=== PATIENT | female | born 1945 | race American Indian/Alaskan Native ===

== ENCOUNTER 2016-06-30 10:12 | Inpatient (IN) | payer MEDICARE ==
[2016-06-30] MEDS ORDERED: CATAPRES PO ONE (11:00)
--- NOTE | 2016-06-30 11:13 | Emergency Department Report ---
HPI - General Chief Complaint: High BP Time Seen by Provider: 06/30/16 11:00 - HPI HPI: Room 6 The patient is a 70-year-old female presenting with a chief complaint of bipolar disorder hypertension. The patient has a history of bipolar disorder hypertension and stay she's been off all of her medications for the past 4-5 days. The patient states this is because her daughter who handles her medication is incarcerated. The patient states the daughter called EMS today because the daughter thought the patient's bipolar disorder was "acting up." The patient states the daughter believes she has been "walking around at night. " The patient denies suicidal or homicidal ideation. Patient denies visual or auditory hallucinations. Location: Mental state Duration: [see above] Quality: Altered Severity: Moderate Modifying factors: [see above] Context: [see above] Mode of transportation: EMS ED Past Medical Hx - Past Medical History Previous Medical History?: Yes Hx Hypertension: Yes (2010, EKG 06/12/13 NSR 67) Hx Diabetes: Yes Hx Renal Disease: Yes (CKD STAGE UNKNOWN) Hx Arthritis: Yes (hands) Hx Psychiatric Treatment: Yes Hx Dementia: Yes Additional medical history: bipolar, sciatica - Surgical History Past Surgical History?: Yes Hx Breast Surgery: Yes (left mastectomy) Additional Surgical History: hysterectomy. knee replacement - Family History Family history: no significant - Social History Smoking Status: Never Smoker Substance Use Type: None - Medications Home Medications: Home Medications Medication Instructions Recorded Confirmed Last Taken Type Insulin Aspart Prot/Aspart 45 units SUB-Q QHS 05/12/13 05/12/13 06/14/13 21:00 History [NovoLOG Mix 70/30 VIAL] Fesoterodine Fumarate [Toviaz] 4 mg PO HS 06/12/13 06/12/13 06/15/13 20:00 History Folic Acid 1 mg PO QDAY 06/12/13 06/12/13 06/15/13 18:00 History Olanzapine 10 mg PO HS 06/12/13 06/12/13 06/15/13 20:00 History Pantoprazole [Protonix TAB] 40 mg PO QDAY 06/12/13 06/12/13 06/15/13 08:00 History Vit B Cmplx 3/FA/Vit C/Biotin 1 each PO 06/12/13 06/12/13 06/15/13 18:00 History [Leandra-Cricket Rx Tablet] traMADol [Ultram 50 MG tab] 50 mg PO Q4HR PRN #20 tablet 07/26/13 Unknown Rx Acetaminophen [Acetaminophen TAB] 650 mg PO Q4H PRN #30 tablet 02/08/15 Unknown Rx Famotidine [Pepcid] 10 mg PO DAILY tablet 02/08/15 Unknown Rx HYDROcodone/APAP 5-325 [Bronson 1 each PO Q6H PRN #30 tablet 02/08/15 Unknown Rx 5-325 mg TAB] Insulin Regular, Human [HumuLIN R] 0 units SUB-Q ACHS units 02/08/15 Unknown Rx Labetalol [Normodyne TAB] 200 mg PO BID tablet 02/08/15 Unknown Rx Levothyroxine [Synthroid] 112 mcg PO DAILY@0600 tablet 02/08/15 Unknown Rx Memantine (Nf) [Namenda (Nf)] 10 mg PO BID tablet 02/08/15 Unknown Rx NIFEdipine XL [Procardia Xl] 30 mg PO Q12HR #30 tablet 06/30/16 Unknown Rx hydrALAZINE [Apresoline TAB] 50 mg PO Q8HR #30 tablet 06/30/16 Unknown Rx ED Review of Systems ROS: Stated complaint: HIGH BLOOD PRESSURE Other details as noted in HPI Comment: All other systems reviewed and negative Constitutional: denies: chills, fever Eyes: denies: eye pain, eye discharge, vision change ENT: denies: ear pain, throat pain Respiratory: denies: cough, shortness of breath, wheezing Cardiovascular: denies: chest pain, palpitations Endocrine: no symptoms reported Gastrointestinal: denies: abdominal pain, nausea, diarrhea Genitourinary: denies: urgency, dysuria, discharge Musculoskeletal: denies: back pain, joint swelling, arthralgia Skin: denies: rash, lesions Neurological: denies: headache, weakness, paresthesias Psychiatric: denies: anxiety, depression, auditory hallucinations, visual hallucinations, homicidal thoughts, suicidal thoughts Hematological/Lymphatic: denies: easy bleeding, easy bruising Physical Exam - Physical Exam Vital Signs: Vital Signs 06/30/16 10:52 Temperature 98.6 F Pulse Rate 62 Respiratory 20 Rate Blood Pressure 207/185 [Right] O2 Sat by Pulse 100 Oximetry Physical Exam: GENERAL: The patient is well-developed well-nourished female lying on stretcher not appearing to be in acute distress. [] HEENT: Normocephalic. Atraumatic. Extraocular motions are intact. Patient has moist mucous membranes. NECK: Supple. No meningitic signs are noted. Trachea midline CHEST/LUNGS: Clear to auscultation. There is no respiratory distress noted. HEART/CARDIOVASCULAR: Regular. There is no tachycardia. There is no gallop rub or murmur. ABDOMEN: Abdomen is soft, nontender. Patient has normal bowel sounds. There is no abdominal distention. SKIN: There is no rash. There is no edema. There is no diaphoresis. NEURO: The patient is awake, alert, and oriented 4. The patient is cooperative. The patient has no focal neurologic deficits. The patient has normal speech. Cranial nerves II through XII grossly intact, no drift MUSCULOSKELETAL: There is no evidence of acute injury. ED Course Vital Signs 06/30/16 10:52 Temperature 98.6 F Pulse Rate 62 Respiratory 20 Rate Blood Pressure 207/185 [Right] O2 Sat by Pulse 100 Oximetry ED Medical Decision Making - Lab Data Result diagrams: 06/30/16 12:01 06/30/16 12:01 Laboratory Tests 06/30/16 06/30/16 06/30/16 11:34 11:34 12:01 WBC 4.2 L RBC 3.15 L Hgb 8.4 L Hct 26.5 L MCV 84 MCH 27 L MCHC 32 RDW 16.4 H Plt Count 258 Lymph % (Auto) 31.3 [place] % (Auto) 11.2 H Eos % (Auto) 3.6 Baso % (Auto) 0.6 Lymph # 1.3 [place] # 0.5 Eos # 0.1 Baso # 0.0 Seg Neutrophils % 53.3 Seg Neutrophils # 2.2 Sodium Potassium Chloride Carbon Dioxide Anion Gap BUN Creatinine Estimated GFR BUN/Creatinine Ratio Glucose Calcium Urine Color Yellow Urine Turbidity Slightly-cloudy Urine pH 6.0 Ur Specific [place] 1.006 Urine Protein 100 mg/dl Urine Glucose (UA) Neg Urine Ketones Neg Urine Blood Neg Urine Nitrite Neg Urine Bilirubin Neg Urine Urobilinogen < 2.0 Ur Leukocyte Esterase Lg Urine WBC (Auto) 76.0 H Urine RBC (Auto) 2.0 U Epithel Cells (Auto) 1.0 Urine Bacteria (Auto) 1+ Urine Opiates Screen Presumptive negative Urine Methadone Screen Presumptive negative Acetaminophen Ur Barbiturates Screen Presumptive negative Ur Phencyclidine Scrn Presumptive negative Ur Amphetamines Screen Presumptive negative U Benzodiazepines Scrn Presumptive negative Urine Cocaine Screen Presumptive negative U Marijuana (THC) Screen Presumptive negative Drugs of Abuse Note Disclamer Plasma/Serum Alcohol 06/30/16 06/30/16 06/30/16 12:01 12:01 12:01 WBC RBC Hgb Hct MCV MCH MCHC RDW Plt Count Lymph % (Auto) [place] % (Auto) Eos % (Auto) Baso % (Auto) Lymph # [place] # Eos # Baso # Seg Neutrophils % Seg Neutrophils # Sodium 144 Potassium 4.2 Chloride 107.0 Carbon Dioxide 19 L Anion Gap 22 BUN 28 H Creatinine 2.4 H Estimated GFR 24 BUN/Creatinine Ratio 11.66 Glucose 87 Calcium 8.1 L Urine Color Urine Turbidity Urine pH Ur Specific [place] Urine Protein Urine Glucose (UA) Urine Ketones Urine Blood Urine Nitrite Urine Bilirubin Urine Urobilinogen Ur Leukocyte Esterase Urine WBC (Auto) Urine RBC (Auto) U Epithel Cells (Auto) Urine Bacteria (Auto) Urine Opiates Screen Urine Methadone Screen Acetaminophen < 15.0 Ur Barbiturates Screen Ur Phencyclidine Scrn Ur Amphetamines Screen U Benzodiazepines Scrn Urine Cocaine Screen U Marijuana (THC) Screen Drugs of Abuse Note Plasma/Serum Alcohol < 0.01 - Medical Decision Making Review the patient's medical records reveals chronic anemia and renal insufficiency. 01/31/2015 hemoglobin 7.6, hematocrit 23.9. 02/08/2015 creatinine 2.3 - Differential Diagnosis bipolar disorder, electrolyte imbalance, hypertension Critical care attestation.: If time is entered above; I have spent that time in minutes in the direct care of this critically ill patient, excluding procedure time. ED Disposition Clinical Impression: Chronic renal insufficiency, Chronic anemia, Hypertension Disposition: DISCHARGED TO HOME OR SELFCARE Is pt being admited?: No Does the pt Need Aspirin: No Condition: Stable Instructions: Hypertension (ED) Additional Instructions: Return to the emergency department immediately should you develop worsening symptoms, fever, inability to tolerate food or liquid or any other concerns. Prescriptions: NIFEdipine XL [Procardia Xl] 30 mg PO Q12HR #30 tablet hydrALAZINE [Apresoline TAB] 50 mg PO Q8HR #30 tablet Referrals: [facility] [Outside] - 3-5 Days PRIMARY CARE, [Primary Care Provider] - POLY RUSSELL, MD [Staff Physician] - LESLE[place] (Dr. Archer is a recruiter manager. Please follow up with him for further evaluation of your kidney function) Time of Disposition: 18:52
[2016-06-30 11:38] LABS: Urine Drugs of Abuse Note Disclamer
[2016-06-30 11:48] LABS: Bacteria,Urine 1+ /HPF (Negative); Bilirubin,Urine NEG (Negative); Blood,Urine NEG (Negative); Ketones,Urine NEG (Negative); Leukocyte Esterase,Urine LG (Negative); Nitrite,Urine NEG (Negative); Urobilinogen,Urine < 2.0 mg/dL (<2.0)
[2016-06-30 12:39] LABS: Basophils % (Auto) 0.6 % (0.0-1.8); Eosinophils % (Auto) 3.6 % (0.0-4.3); Hematocrit 26.5 % (30.3-42.9); Hemoglobin 8.4 gm/dl (10.1-14.3); Mean Corpuscular HGB Conc 32 % (30-34); Mean Corpuscular Hemoglobin 27 pg (28-32); Mean Corpuscular Volume 84 fl (79-97); Platelet Count 258 K/mm3 (140-440); Red Blood Count 3.15 M/mm3 (3.65-5.03); Red Cell Distribution Width 16.4 % (13.2-15.2); White Blood Count 4.2 K/mm3 (4.5-11.0)
[2016-06-30 12:52] LABS: BUN/Creatinine Ratio 11.66; Calcium 8.1 mg/dL (8.4-10.2); Potassium 4.2 mmol/L (3.6-5.0)
[2016-06-30] MEDS ORDERED: APRESOLINE IV ONE ×2 (16:58→18:16)
[2016-07-01] MEDS ORDERED: PROCARDIA XL PO ONE (06:46)
[2016-07-01] MEDS ORDERED: APRESOLINE PO ONE (06:46)
[2016-07-01] MEDS ORDERED: TYLENOL PO ONE (23:34)
[2016-07-02] MEDS ORDERED: BACTRIM DS ONE (07:38)
[2016-07-02] MEDS: ULTRAM PO PRN (07:54)
[2016-07-02] MEDS ORDERED: APRESOLINE PO ONE (08:41)
[2016-07-02] MEDS ORDERED: PROCARDIA XL PO ONE (08:41)
[2016-07-02] MEDS: BACTRIM DS PO SCH ×2 (09:58→22:00)
--- NOTE | 2016-07-03 00:51 | Admit Criteria Form ---
Admission Criteria Documentation: HYPERTENSION Clinical Indications for Admission to Inpatient Care ( Place "X" for any and all applicable criteria): Admission is indicated for ANY ONE of the following(1)(2)(3)(4): [ ]I. Hypertensive emergency, with evidence of acute and progressing target organ disease as indicated by ANY ONE of the following: [ ]a) Hypertensive encephalopathy (eg, confusion, altered mental status) [ ]b) Cerebral infarction [ ]c) Intracranial hemorrhage [ ]d) Myocardial ischemia or infarction [ ]e) Pulmonary edema [ ]f) Aortic dissection [ ]g) Seizure [ ]h) Acute renal insufficiency [ ]i) Papilledema [ ]j) Microangiopathic hemolytic anemia [ ]II. Adrenergic crisis (eg, severe hypertension due to pheochromocytoma crisis, cocaine or amphetamine intoxication, or clonidine withdrawal) [ X]III. Severe hypertension (SBP greater than 180 mmHg or DBP greater than 110 mmHg or greater than the 95th percentile for age, gender, and height in pediatric patients) that cannot be controlled (eg, to SBP less than 160 mmHg and DBP less than 100 mmHg in adults) by treatment with oral medication in emergency department or observation care Extended stay beyond goal length of stay may be needed for(11)(12)(13): [ ]a) Persistent hypertensive encephalopathy [ ]b) Continuation of pulmonary edema [ ]c) Recurring or persistent severe hypertension [ ]d) Target organ damage (eg, angina, stroke, aortic dissection) [ ]e) Associated renal insufficiency The original [employer] content created by [employer] has been revised. The portions of the content which have been revised are identified through the use of italic text or in bold, and [facility] has neither reviewed nor approved the modified material. All other unmodified content is copyright [employer]. Please see references footnoted in the original [employer] edition 2016 Admission Criteria Met: Yes
--- NOTE | 2016-07-03 11:55 | Emergency Department Report ---
Blank Doc - Documentation Documentation: I was approached by the social sciences professor regarding a discharge issue with this patient. The patient allegedly used to live with some family who is at [facility] but they are unable to care for her and unable to take her back as they themselves are being evicted from where they're currently residing. The patient 's other family is in [facility] and unable to do anything about her situation. The patient used to live at [facility], a local [facility]. The case management feels that they should be able to get her placed back at [facility] or another ch[facility] after she has been an inpatient admission for 3 days. The patient does have a history of dementia, chronic kidney disease, anemia secondary to the chronic kidney disease. The patient was found to have hypertensive urgency when she was here 3 days ago and a urinary tract infection. The patient will be admitted for further evaluation of this as well as for her social/discharge planning issues and has been accepted for admission by the hospitalist service, Dr sandra.
[2016-07-03] MEDS: BACTRIM DS PO SCH ×2 (12:18→21:20)
--- NOTE | 2016-07-03 14:03 | History and Physical Report ---
History of Present Illness Date of examination: 07/03/16 Chief complaint: patient said she came for High blood pressure History of present illness: 70 y/o AAF with pmhx significant for HTN, bipolar, DM, dementia, CKD brought to ED 3 days ago for complaints of agitation and aggressive towards family members (per family), but she was calm and cooperative (per EMS report). In the ED her blood pressure was high and she was on BP meds and she had UTI and was started on Bactrim. The patient said her daughter was incarcerated and had difficulty of getting her medications while she was at home. She was kept in the ED for the last 3 days. By the time I saw her the patient was pleasant and cooprative and didn't have any complaints. She asked for placement in correction ( [facility] which specifically wanted to be placed). She is going to be admitted to the floor for the management of UTI and placement. Past History Past Medical History: diabetes, hypertension, renal failure, other (Bipolar, dementia) Past Surgical History: Other (left breast surgery) Social history: lives with family, full code. denies: smoking, alcohol abuse, prescription drug abuse, IV drug use Family history: no significant family history, other (Non contributary at this age.) Medications and Allergies Allergies Allergy/AdvReac Type Severity Reaction Status Date / Time No Known Allergies Allergy Unverified 05/12/13 12:21 Home Medications Medication Instructions Recorded Confirmed Last Taken Type Insulin Aspart Prot/Aspart 45 units SUB-Q QHS 05/12/13 07/02/16 06/14/13 21:00 History [NovoLOG Mix 70/30 VIAL] Olanzapine 10 mg PO HS 06/12/13 07/02/16 06/15/13 20:00 History Insulin Regular, Human [HumuLIN R] 0 units SUB-Q ACHS units 02/08/15 07/02/16 Unknown Rx Labetalol [Normodyne TAB] 200 mg PO BID tablet 02/08/15 07/02/16 Unknown Rx NIFEdipine XL [Procardia Xl] 30 mg PO Q12HR #30 tablet 06/30/16 Unknown Rx hydrALAZINE [Apresoline TAB] 50 mg PO Q8HR #30 tablet 06/30/16 Unknown Rx Gabapentin [Neurontin] 100 mg PO BID 07/02/16 07/02/16 Unknown History Levothyroxine [Synthroid] 100 mcg PO DAILY@0600 07/02/16 07/02/16 Unknown History Sulfamethoxazole/Trimethoprim 1 each PO BID #20 tablet 07/02/16 Unknown Rx [Bactrim DS TAB] Active Meds: Active Medications Tramadol HCl (Ultram) 50 mg PO Q4HR PRN PRN Reason: Pain Last Admin: 07/02/16 07:54 Dose: 50 mg Trimethoprim/Sulfamethoxazole (Bactrim Ds) 1 each PO Q12HR RACHEL Last Admin: 07/03/16 12:18 Dose: 1 each Review of Systems Constitutional: no weight loss, no weight gain, no fever, no chills, no sweats, no night sweats Ears, nose, mouth and throat: no ear pain, no ear discharge Cardiovascular: no chest pain, no orthopnea, no palpitations, no rapid/ irregular heart beat Respiratory: no cough, no cough with sputum, no excessive sputum Gastrointestinal: no abdominal pain, no nausea, no vomiting Genitourinary Female: no flank pain, no dysuria, no urinary frequency, no urgency Rectal: no pain, no incontinence Musculoskeletal: no neck stiffness, no neck pain Integumentary: no rash, no pruritis Neurological: no head injury, no transient paralysis Psychiatric: memory loss, no anxiety Endocrine: no cold intolerance, no heat intolerance Hematologic/Lymphatic: no easy bruising, no easy bleeding Allergic/Immunologic: no urticaria, no allergic rhinitis Exam - Constitutional Vitals: Temp Pulse Resp BP Pulse Ox 98 F 78 16 148/78 100 07/02/16 19:30 07/02/16 19:30 07/02/16 19:30 07/02/16 19:30 07/02/16 19:30 General appearance: Present: no acute distress - EENT Eyes: Present: EOM intact ENT: hearing intact, clear oral mucosa, dentition normal - Neck Neck: Present: supple, normal ROM - Respiratory Respiratory effort: normal Respiratory: negative: CTA - Cardiovascular Rhythm: regular Heart Sounds: Present: S1 & S2. Absent: gallop, systolic murmur, diastolic murmur, rub, click - Extremities Extremities: no ischemia, No edema Peripheral Pulses: within normal limits - Abdominal General gastrointestinal: Present: soft, non-tender, non-distended - Integumentary Integumentary: Present: clear, warm, dry - Musculoskeletal Musculoskeletal: strength equal bilaterally - Psychiatric Psychiatric: appropriate mood/affect - Neurologic Neurologic: moves all extremities - Allied Health Allied health notes reviewed: social work, case management Results - Labs CBC & Chem 7: 07/04/16 06:21 07/04/16 06:21 Labs: Laboratory Last Values WBC 4.2 K/mm3 (4.5-11.0) L 06/30/16 12:01 RBC 3.15 M/mm3 (3.65-5.03) L 06/30/16 12:01 Hgb 8.4 gm/dl (10.1-14.3) L 06/30/16 12:01 Hct 26.5 % (30.3-42.9) L 06/30/16 12:01 MCV 84 fl (79-97) 06/30/16 12:01 MCH 27 pg (28-32) L 06/30/16 12:01 MCHC 32 % (30-34) 06/30/16 12:01 RDW 16.4 % (13.2-15.2) H 06/30/16 12:01 Plt Count 258 K/mm3 (140-440) 06/30/16 12:01 Lymph % (Auto) 31.3 % (13.4-35.0) 06/30/16 12:01 [place] % (Auto) 11.2 % (0.0-7.3) H 06/30/16 12:01 Eos % (Auto) 3.6 % (0.0-4.3) 06/30/16 12:01 Baso % (Auto) 0.6 % (0.0-1.8) 06/30/16 12:01 Lymph # 1.3 K/mm3 (1.2-5.4) 06/30/16 12:01 [place] # 0.5 K/mm3 (0.0-0.8) 06/30/16 12:01 Eos # 0.1 K/mm3 (0.0-0.4) 06/30/16 12:01 Baso # 0.0 K/mm3 (0.0-0.1) 06/30/16 12:01 Seg Neutrophils % 53.3 % (40.0-70.0) 06/30/16 12:01 Seg Neutrophils # 2.2 K/mm3 (1.8-7.7) 06/30/16 12:01 Sodium 144 mmol/L (137-145) 06/30/16 12:01 Potassium 4.2 mmol/L (3.6-5.0) 06/30/16 12:01 Chloride 107.0 mmol/L (98-107) 06/30/16 12:01 Carbon Dioxide 19 mmol/L (22-30) L 06/30/16 12:01 Anion Gap 22 mmol/L 06/30/16 12:01 BUN 28 mg/dL (7-17) H 06/30/16 12:01 Creatinine 2.4 mg/dL (0.7-1.2) H 06/30/16 12:01 Estimated GFR 24 ml/min 06/30/16 12:01 BUN/Creatinine Ratio 11.66 % 06/30/16 12:01 Glucose 87 mg/dL (65-100) 06/30/16 12:01 POC Glucose 91 (70-105) 07/02/16 07:43 Calcium 8.1 mg/dL (8.4-10.2) L 06/30/16 12:01 Urine Color Yellow (Yellow) 06/30/16 11:34 Urine Turbidity Slightly-cloudy (Clear) 06/30/16 11:34 Urine pH 6.0 (5.0-7.0) 06/30/16 11:34 Ur Specific Hydes 1.006 (1.003-1.030) 06/30/16 11:34 Urine Protein 100 mg/dl mg/dL (Negative) 06/30/16 11:34 Urine Glucose (UA) Neg mg/dL (Negative) 06/30/16 11:34 Urine Ketones Neg mg/dL (Negative) 06/30/16 11:34 Urine Blood Neg (Negative) 06/30/16 11:34 Urine Nitrite Neg (Negative) 06/30/16 11:34 Urine Bilirubin Neg (Negative) 06/30/16 11:34 Urine Urobilinogen < 2.0 mg/dL (<2.0) 06/30/16 11:34 Ur Leukocyte Esterase Lg (Negative) 06/30/16 11:34 Urine WBC (Auto) 76.0 /HPF (0.0-6.0) H 06/30/16 11:34 Urine RBC (Auto) 2.0 /HPF (0.0-6.0) 06/30/16 11:34 U Epithel Cells (Auto) 1.0 /HPF (0-13.0) 06/30/16 11:34 Urine Bacteria (Auto) 1+ /HPF (Negative) 06/30/16 11:34 Urine Opiates Screen Presumptive negative 06/30/16 11:34 Urine Methadone Screen Presumptive negative 06/30/16 11:34 Acetaminophen < 15.0 ug/mL (10.0-30.0) 06/30/16 12:01 Ur Barbiturates Screen Presumptive negative 06/30/16 11:34 Ur Phencyclidine Scrn Presumptive negative 06/30/16 11:34 Ur Amphetamines Screen Presumptive negative 06/30/16 11:34 U Benzodiazepines Scrn Presumptive negative 06/30/16 11:34 Urine Cocaine Screen Presumptive negative 06/30/16 11:34 U Marijuana (THC) Screen Presumptive negative 06/30/16 11:34 Drugs of Abuse Note Disclamer 06/30/16 11:34 Plasma/Serum Alcohol < 0.01 gm% (0-0.07) 06/30/16 12:01 Assessment and Plan Assessment and plan: UTI HTN Bipolar Disorder Dementia Need Placement - change bactrim to rocephin bacause of CKD - Restart all her home medications - Consult social media intern/ ed case manager for placement DVT prophylaxis: - heparin
[2016-07-03 14:48] LABS: Basophils % (Auto) 0.4 % (0.0-1.8); Eosinophils % (Auto) 4.3 % (0.0-4.3); Hematocrit 26.8 % (30.3-42.9); Hemoglobin 8.5 gm/dl (10.1-14.3); Mean Corpuscular HGB Conc 32 % (30-34); Mean Corpuscular Hemoglobin 27 pg (28-32); Mean Corpuscular Volume 85 fl (79-97); Platelet Count 254 K/mm3 (140-440); Red Blood Count 3.16 M/mm3 (3.65-5.03); Red Cell Distribution Width 16.5 % (13.2-15.2); White Blood Count 4.6 K/mm3 (4.5-11.0)
[2016-07-03 15:05] LABS: BUN/Creatinine Ratio 10.38; Chloride 107.6 mmol/L (98-107); Potassium 4.3 mmol/L (3.6-5.0)
[2016-07-03] MEDS: ULTRAM PO PRN (15:45)
[2016-07-03] MEDS: NORMODYNE PO SCH (21:20)
[2016-07-03] MEDS: NEURONTIN PO SCH (21:20)
[2016-07-03] MEDS: HEPARIN SUB-Q SCH (21:59)
[2016-07-03] MEDS ORDERED: INSULIN ASPART PROTAMINE SUB-Q SCH (22:00)
[2016-07-03] MEDS ORDERED: INSULIN ASPART SUB-Q SCH (22:00)
[2016-07-04] MEDS: SYNTHROID PO SCH (05:18)
[2016-07-04] MEDS: HEPARIN SUB-Q SCH (05:36)
[2016-07-04] MEDS ORDERED: SYNTHROID PO SCH (06:00)
[2016-07-04 06:44] LABS: Basophils % (Auto) 0.8 % (0.0-1.8); Eosinophils % (Auto) 3.6 % (0.0-4.3); Hematocrit 25.6 % (30.3-42.9); Mean Corpuscular HGB Conc 31 % (30-34); Mean Corpuscular Hemoglobin 26 pg (28-32); Mean Corpuscular Volume 84 fl (79-97); Platelet Count 226 K/mm3 (140-440); Red Blood Count 3.04 M/mm3 (3.65-5.03); Red Cell Distribution Width 16.2 % (13.2-15.2); White Blood Count 3.9 K/mm3 (4.5-11.0)
[2016-07-04 07:06] LABS: Calcium 7.8 mg/dL (8.4-10.2); Chloride 107.4 mmol/L (98-107); Potassium 4.4 mmol/L (3.6-5.0)
[2016-07-04] MEDS: NEURONTIN PO SCH ×2 (09:49→23:03)
[2016-07-04] MEDS: NORMODYNE PO SCH ×2 (09:49→23:04)
[2016-07-04] MEDS: NOVOLOG SUB-Q SCH ×3 (11:30→22:49)
--- NOTE | 2016-07-04 16:38 | Progress Note ---
Assessment and Plan Assessment and plan: Patient is a 70-year-old woman with a history of dementia, CKD 4, anemia of chronic disease, hypothyroidism, hypertension, type 2 diabetes mellitus, bipolar disorder and arthritis who presented on 06/30/2016 with mental health concerns per family. Patient did not go home. She remained in the ER until 11/2015, until it was decided that she needed placement. She needs 3 night inpatient hospital stay. 1. Urinary tract infection with acute encephalopathy, POA started on Bactrim by ED physician Dr. Iraheta. Urine culture was uncollected, Stop the Bactrim because of renal dysfunction, started iv rocephin 2. CKD stage IV: repeat bmp am 3. Hypothyroidism: check tsh 4. Hypertension, chronic and worsening: Adjust antihypertensive, Continue to monitor 5. DVT prophylaxis: SCDs, stop heparin due to the anemia 6. Acute on chronic anemia chronic disease: Monitor closely, CBC a.m. Full code Disposition: Continue inpatient care, for placement History Interval history: Patient seen and examined. Follow up on current diagnosis. Overnight uneventful. No cp, sob, n/v or severe headaches. Imaging, old records, testing, labs, nursing notes reviewed. Hospitalist Physical - Physical exam Narrative exam: GEN: WDWN, NAD, AWAKE, ALERT, ORIENTATED 2 CVS: RRR, NORMAL S1S2 LUNGS/CHEST: CTA B, NORMAL CHEST EXPANSION B, GOOD AIR ENTRY B ABD: SOFT NTND, GBS, NO REBOUND OR GUARDING EXT/SKIN: NO SIGNIFICANT EDEMA OR RASH MSK: FROM X 4 EXTREMITIES NEURO: CN 2-12 GROSSLY INTACT, NO NEW FOCAL DEFICITS PSY: CALM - Constitutional Vitals: Temp Pulse Resp BP Pulse Ox 98.3 F 84 20 133/61 100 07/04/16 16:00 07/04/16 16:00 07/04/16 16:00 07/04/16 16:00 07/04/16 16:00 Results - Labs CBC & Chem 7: 07/04/16 06:21 07/04/16 06:21 Labs: Laboratory Last Values WBC 3.9 K/mm3 (4.5-11.0) L 07/04/16 06:21 RBC 3.04 M/mm3 (3.65-5.03) L 07/04/16 06:21 Hgb 8.0 gm/dl (10.1-14.3) L 07/04/16 06:21 Hct 25.6 % (30.3-42.9) L 07/04/16 06:21 MCV 84 fl (79-97) 07/04/16 06:21 MCH 26 pg (28-32) L 07/04/16 06:21 MCHC 31 % (30-34) 07/04/16 06:21 RDW 16.2 % (13.2-15.2) H 07/04/16 06:21 Plt Count 226 K/mm3 (140-440) 07/04/16 06:21 Lymph % (Auto) 24.7 % (13.4-35.0) 07/04/16 06:21 [place] % (Auto) 10.7 % (0.0-7.3) H 07/04/16 06:21 Eos % (Auto) 3.6 % (0.0-4.3) 07/04/16 06:21 Baso % (Auto) 0.8 % (0.0-1.8) 07/04/16 06:21 Lymph # 1.0 K/mm3 (1.2-5.4) L 07/04/16 06:21 [place] # 0.4 K/mm3 (0.0-0.8) 07/04/16 06:21 Eos # 0.1 K/mm3 (0.0-0.4) 07/04/16 06:21 Baso # 0.0 K/mm3 (0.0-0.1) 07/04/16 06:21 Seg Neutrophils % 60.2 % (40.0-70.0) 07/04/16 06:21 Seg Neutrophils # 2.4 K/mm3 (1.8-7.7) 07/04/16 06:21 Sodium 143 mmol/L (137-145) 07/04/16 06:21 Potassium 4.4 mmol/L (3.6-5.0) 07/04/16 06:21 Chloride 107.4 mmol/L (98-107) H 07/04/16 06:21 Carbon Dioxide 21 mmol/L (22-30) L 07/04/16 06:21 Anion Gap 19 mmol/L 07/04/16 06:21 BUN 27 mg/dL (7-17) H 07/04/16 06:21 Creatinine 2.7 mg/dL (0.7-1.2) H 07/04/16 06:21 Estimated GFR 21 ml/min 07/04/16 06:21 BUN/Creatinine Ratio 10.00 % 07/04/16 06:21 Glucose 93 mg/dL (65-100) 07/04/16 06:21 POC Glucose 110 (70-105) H 07/04/16 11:30 Calcium 7.8 mg/dL (8.4-10.2) L 07/04/16 06:21 Urine Color Yellow (Yellow) 06/30/16 11:34 Urine Turbidity Slightly-cloudy (Clear) 06/30/16 11:34 Urine pH 6.0 (5.0-7.0) 06/30/16 11:34 Ur Specific [place] 1.006 (1.003-1.030) 06/30/16 11:34 Urine Protein 100 mg/dl mg/dL (Negative) 06/30/16 11:34 Urine Glucose (UA) Neg mg/dL (Negative) 06/30/16 11:34 Urine Ketones Neg mg/dL (Negative) 06/30/16 11:34 Urine Blood Neg (Negative) 06/30/16 11:34 Urine Nitrite Neg (Negative) 06/30/16 11:34 Urine Bilirubin Neg (Negative) 06/30/16 11:34 Urine Urobilinogen < 2.0 mg/dL (<2.0) 06/30/16 11:34 Ur Leukocyte Esterase Lg (Negative) 06/30/16 11:34 Urine WBC (Auto) 76.0 /HPF (0.0-6.0) H 06/30/16 11:34 Urine RBC (Auto) 2.0 /HPF (0.0-6.0) 06/30/16 11:34 U Epithel Cells (Auto) 1.0 /HPF (0-13.0) 06/30/16 11:34 Urine Bacteria (Auto) 1+ /HPF (Negative) 06/30/16 11:34 Urine Opiates Screen Presumptive negative 06/30/16 11:34 Urine Methadone Screen Presumptive negative 06/30/16 11:34 Acetaminophen < 15.0 ug/mL (10.0-30.0) 06/30/16 12:01 Ur Barbiturates Screen Presumptive negative 06/30/16 11:34 Ur Phencyclidine Scrn Presumptive negative 06/30/16 11:34 Ur Amphetamines Screen Presumptive negative 06/30/16 11:34 U Benzodiazepines Scrn Presumptive negative 06/30/16 11:34 Urine Cocaine Screen Presumptive negative 06/30/16 11:34 U Marijuana (THC) Screen Presumptive negative 06/30/16 11:34 Drugs of Abuse Note Disclamer 06/30/16 11:34 Plasma/Serum Alcohol < 0.01 gm% (0-0.07) 06/30/16 12:01
[2016-07-04] MEDS: ROCEPHIN/NS 1 GM/50 ML 50 ML IV SCH (17:47)
--- NOTE | 2016-07-04 19:19 | Consultation ---
History of Present Illness - Reason for Consult Consult date: 07/04/16 Reason for consult: altered mental status Requesting physician: JORGE L JONES - Chief Complaint Chief complaint: "I want to have a place I can stay forever." "my daughter told the ER people I was out of my mind and was walking around all night, that I didn't know what I am doing. I know what I am doing. I am not crazy." - History of Present Psychiatric Illness Patient was brought to the ER with reports of agitated, confused behaviors. Family informed staff they would not be able to care for her at home anymore as they were being evicted. Medications and Allergies Allergies Allergy/AdvReac Type Severity Reaction Status Date / Time No Known Allergies Allergy Unverified 05/12/13 12:21 Home Medications Medication Instructions Recorded Confirmed Last Taken Type Insulin Aspart Prot/Aspart 45 units SUB-Q QHS 05/12/13 07/02/16 06/14/13 21:00 History [NovoLOG Mix 70/30 VIAL] Olanzapine 10 mg PO HS 06/12/13 07/02/16 06/15/13 20:00 History Insulin Regular, Human [HumuLIN R] 0 units SUB-Q ACHS units 02/08/15 07/02/16 Unknown Rx Labetalol [Normodyne TAB] 200 mg PO BID tablet 02/08/15 07/02/16 Unknown Rx NIFEdipine XL [Procardia Xl] 30 mg PO Q12HR #30 tablet 06/30/16 Unknown Rx hydrALAZINE [Apresoline TAB] 50 mg PO Q8HR #30 tablet 06/30/16 Unknown Rx Gabapentin [Neurontin] 100 mg PO BID 07/02/16 07/02/16 Unknown History Levothyroxine [Synthroid] 100 mcg PO DAILY@0600 07/02/16 07/02/16 Unknown History Sulfamethoxazole/Trimethoprim 1 each PO BID #20 tablet 07/02/16 Unknown Rx [Bactrim DS TAB] Active Meds: Active Medications Dextrose (D50w (25gm)) 50 ml IV PRN PRN PRN Reason: Hypoglycemia Gabapentin (Neurontin) 100 mg PO BID RACHEL Last Admin: 07/04/16 09:49 Dose: 100 mg Ceftriaxone Sodium (Rocephin/Ns 1 Gm/50 Ml) 50 mls @ 100 mls/hr IV Q24HR RACHEL PRN Reason: Protocol Last Admin: 07/04/16 17:47 Dose: 100 mls/hr Influenza Virus Vaccine Quadrival (Fluarix Quad [id number](36 Mos+)) 60 mcg IM .ONCE ONE Stop: 07/05/16 12:01 Insulin Aspart (Novolog) 0 units SUB-Q ACHS RACHEL PRN Reason: Protocol Last Admin: 07/04/16 17:46 Dose: Not Given Insulin Human Isoph/Insulin Regular (Novolin 70/30) 45 unit SUB-Q QHS [facility] Labetalol HCl (Normodyne) 200 mg PO BID [facility] Last Admin: 07/04/16 09:49 Dose: 200 mg Levothyroxine Sodium (Synthroid) 100 mcg PO DAILY@0600 [facility] Last Admin: 07/04/16 05:18 Dose: 100 mcg Olanzapine (Zyprexa) 10 mg PO HS [facility] Last Admin: 07/03/16 21:21 Dose: 10 mg Past psychiatric history - Past Medical History Past Medical History: hypertension, renal failure Past Surgical History: mastectomy - past Psychiatric treatment and history Psych: Bipolar, Psychosis (altered mental status) psychiatric treatment history: Patient's home medications include Zyprexa for psychosis but unsure who prescribed it for Pt. Patient was seen by this [employer] in 2014 while she was at [facility]. She was only on Namenda at that time. - Social History Social history: other (Patient was left at hospital and family refused to pick her up from ER. Family states she cannot return to home.) Mental Status Exam - Vital signs Last Vital Signs Temp 98.3 F 07/04/16 16:00 Pulse 84 07/04/16 16:00 Resp 20 07/04/16 16:00 BP 133/61 07/04/16 16:00 Pulse Ox 100 07/04/16 16:00 - Exam Narrative exam: Patient is awake, alert, cooperative, and easily engages in interview. She is oriented to day, date, month, year, season, location, city, county and state. She is able to recall 3/3 words immediately and after 5 minutes. She is able to identify 2 common objects, read/comprehend written directions, follow 3 step commands, and spell WORLD backwards with 1 error. She is able correctly name the current [place] President and newly elected President. Patient states she wants to find a place she can live forever. She would like to return to [facility] as she had lived there previously and liked it. She states "my daughter told the ER people I was out of my mind and was walking around all night, that I didn't know what I am doing. I know what I am doing. I am not crazy." Patient has a history of dementia but results of MSE are within normal limits (). Patient denies any suicidal or homicidal ideation , denies any auditory or visual hallucinations, denies any sleep or appetite problems. she admits to feeling hopeless when she arrived at ER because she didn't know where she was going to stay when she gets out of the hospital. She is still worried about having a permanent place to stay. Orientation: time, place, person Affect: normal Mood: appropriate, hopeless (felt hopeless when she came in but less hopeless now.) Thought content: roman catholic (strong restorationist theodore), other (no evidence of delusional material) Thought Process: Intact Perceptions: none (denies A/V hallucinations and does not appear to be responding to internal stimuli) Speech: normal rate and pattern Concentration: focused Motor activity: normal Level of consciousness: alert Memory: Intact Sleep Symptoms: None Appetite: increased (no change in appetite) Interaction: pleasant Mini mental status exam(if necessary): 24-30 () Results Result Diagrams: 07/04/16 06:21 07/04/16 06:21 Abnormal lab results 07/04/16 07/04/16 07/04/16 Range/Units 06:21 06:21 11:30 WBC 3.9 L (4.5-11.0) K/mm3 RBC 3.04 L (3.65-5.03) M/mm3 Hgb 8.0 L (10.1-14.3) gm/dl Hct 25.6 L (30.3-42.9) % MCH 26 L (28-32) pg RDW 16.2 H (13.2-15.2) % [place] % (Auto) 10.7 H (0.0-7.3) % Lymph # 1.0 L (1.2-5.4) K/mm3 Chloride 107.4 H (98-107) mmol/L Carbon Dioxide 21 L (22-30) mmol/L BUN 27 H (7-17) mg/dL Creatinine 2.7 H (0.7-1.2) mg/dL POC Glucose 110 H (70-105) Calcium 7.8 L (8.4-10.2) mg/dL 07/04/16 Range/Units 16:33 WBC (4.5-11.0) K/mm3 RBC (3.65-5.03) M/mm3 Hgb (10.1-14.3) gm/dl Hct (30.3-42.9) % MCH (28-32) pg RDW (13.2-15.2) % [place] % (Auto) (0.0-7.3) % Lymph # (1.2-5.4) K/mm3 Chloride (98-107) mmol/L Carbon Dioxide (22-30) mmol/L BUN (7-17) mg/dL Creatinine (0.7-1.2) mg/dL POC Glucose 106 H (70-105) Calcium (8.4-10.2) mg/dL All other labs normal. Assessment and Plan - Psychiatric problem (1) Bipolar disorder Current Visit: No Status: Acute Qualifiers: Active/Remission status: remission status unspecified Most recent bipolar episode type: most recent episode unspecified type Qualified Code(s): F31.9 - Bipolar disorder, unspecified plan to address problem: Recommend continuing to monitor mood stability and current medication: * Zyprexa 10 mg PO QHS. Psych will continue to follow
[2016-07-05 05:47] LABS: Hematocrit 24.2 % (30.3-42.9); Hemoglobin 7.7 gm/dl (10.1-14.3); Mean Corpuscular HGB Conc 32 % (30-34); Mean Corpuscular Hemoglobin 27 pg (28-32); Mean Corpuscular Volume 84 fl (79-97); Platelet Count 220 K/mm3 (140-440); Red Blood Count 2.87 M/mm3 (3.65-5.03)
[2016-07-05 05:55] LABS: BUN/Creatinine Ratio 8.64; Calcium 7.8 mg/dL (8.4-10.2); Chloride 104.5 mmol/L (98-107); Potassium 4.3 mmol/L (3.6-5.0)
[2016-07-05] MEDS: SYNTHROID PO SCH (06:29)
[2016-07-05] MEDS ORDERED: SYNTHROID PO SCH (07:55)
[2016-07-05] MEDS: NOVOLOG SUB-Q SCH ×3 (11:12→22:20)
[2016-07-05] MEDS: NORMODYNE PO SCH ×2 (11:38→22:26)
[2016-07-05] MEDS: NEURONTIN PO SCH ×2 (11:39→22:26)
[2016-07-05] MEDS: ROCEPHIN/NS 1 GM/50 ML 50 ML IV SCH (11:40)
[2016-07-05] MEDS ORDERED: FLUARIX QUAD 2016-2017(36 MOS+) IM ONE (12:00)
[2016-07-05 12:28] LABS: Hematocrit 25.9 % (30.3-42.9); Hemoglobin 8.3 gm/dl (10.1-14.3)
--- NOTE | 2016-07-05 13:49 | Consultation ---
History of Present Illness - Reason for Consult Consult date: 07/05/16 acute renal failure - History of Present Illness 70-year-old -[place] female with long-standing history of diabetes mellitus hypertension also history of bipolar disorder who is not aware of any chronic kidney disease but the H&P does mention that she has a history of chronic kidney disease who was admitted for placement in a jail and was started on Bactrim for UTI, her creatinine was 2.4 on admission and is progressively getting worse and now it is 3.7 so we are asked to see the patient. Patient denies any nausea vomiting diarrhea, denies any use of nonsteroidal anti-inflammatory drug denies any difficulty in passing urine and claims she has good appetite and his been eating and drinking well. Past History Past Medical History: diabetes, hypertension, renal failure, other (Bipolar, dementia) Past Surgical History: Other (left breast surgery) Social history: lives with family, full code. denies: smoking, alcohol abuse, prescription drug abuse, IV drug use Family history: no significant family history, other (Non contributary at this age.) Medications and Allergies Allergies Allergy/AdvReac Type Severity Reaction Status Date / Time No Known Allergies Allergy Unverified 05/12/13 12:21 Home Medications Medication Instructions Recorded Confirmed Last Taken Type Insulin Aspart Prot/Aspart 45 units SUB-Q QHS 05/12/13 07/02/16 06/14/13 21:00 History [NovoLOG Mix 70/30 VIAL] Olanzapine 10 mg PO HS 06/12/13 07/02/16 06/15/13 20:00 History Insulin Regular, Human [HumuLIN R] 0 units SUB-Q ACHS units 02/08/15 07/02/16 Unknown Rx Labetalol [Normodyne TAB] 200 mg PO BID tablet 02/08/15 07/02/16 Unknown Rx NIFEdipine XL [Procardia Xl] 30 mg PO Q12HR #30 tablet 06/30/16 Unknown Rx hydrALAZINE [Apresoline TAB] 50 mg PO Q8HR #30 tablet 06/30/16 Unknown Rx Gabapentin [Neurontin] 100 mg PO BID 07/02/16 07/02/16 Unknown History Levothyroxine [Synthroid] 100 mcg PO DAILY@0600 07/02/16 07/02/16 Unknown History Sulfamethoxazole/Trimethoprim 1 each PO BID #20 tablet 07/02/16 Unknown Rx [Bactrim DS TAB] Active Meds: Active Medications Dextrose (D50w (25gm)) 50 ml IV PRN PRN PRN Reason: Hypoglycemia Gabapentin (Neurontin) 100 mg PO BID [facility] Last Admin: 07/05/16 11:39 Dose: 100 mg Ceftriaxone Sodium (Rocephin/Ns 1 Gm/50 Ml) 50 mls @ 100 mls/hr IV Q24HR RACHEL PRN Reason: Protocol Last Admin: 07/05/16 11:40 Dose: 100 mls/hr Sodium Chloride (Nacl 0.9% 1000 Ml) 1,000 mls @ 100 mls/hr IV DIRECT RACHEL Insulin Aspart (Novolog) 0 units SUB-Q ACHS RACHEL PRN Reason: Protocol Last Admin: 07/05/16 11:12 Dose: Not Given Insulin Human Isoph/Insulin Regular (Novolin 70/30) 45 unit SUB-Q QHS [facility] Last Admin: 07/05/16 04:44 Dose: Not Given Labetalol HCl (Normodyne) 200 mg PO BID [facility] Last Admin: 07/05/16 11:38 Dose: 200 mg Levothyroxine Sodium (Synthroid) 150 mcg PO DAILY@0600 [facility]HCEL Olanzapine (Zyprexa) 10 mg PO HS [facility] Last Admin: 07/04/16 23:03 Dose: 10 mg Review of Systems Constitutional: other (as in HPI) Exam - Vital Signs Vital signs: Vital Signs Temp Pulse Resp BP Pulse Ox 98.6 F 62 20 207/185 100 06/30/16 10:52 06/30/16 10:52 06/30/16 10:52 06/30/16 10:52 06/30/16 10:52 - Physical Exam Narrative exam: Middle-aged female in no acute distress, HEENT normocephalic/atraumatic pink conjunctiva anicteric sclera, Neck is supple no JVD trachea central, Chest is bilateral coarse breath sound equal chest expansion, Heart S1-S2 regular rate and rhythm, Abdomen is soft nontender no organomegaly, Extremities no edema cyanosis or clubbing, Neuro alert oriented 3 no focal deficit Results - Lab Results 07/05/16 11:45 07/05/16 05:08 Most recent lab results Calcium 7.8 mg/dL (8.4-10.2) L 07/05/16 05:08 Assessment and Plan - Patient Problems (1) GABRIELA (acute kidney injury) Current Visit: Yes Status: Acute Plan to address problem: Acute kidney injury on top of chronic kidney disease baseline creatinine is unknown but creatinine was 2.4 upon admission reflecting she has underlying chronic kidney disease. Acute component is most likely secondary to Bactrim which can cause intestinal nephritis versus completing for the tubular secretion with creatinine, other possibility is UTI in the diabetic patient. Check urine analysis check urine protein creatinine ratio check urine sodium urine creatinine check renal ultrasound avoid nephrotoxic agent i.e. nonsteroidal anti-inflammatory drugs and IV contrast, patient is off Bactrim now , keep patient well hydrated, monitor renal functions, further plan according to the course in the hospital (2) Chronic renal insufficiency Current Visit: Yes Status: Acute Plan to address problem: Chronic kidney disease is most likely secondary to diabetes mellitus and hypertension, we will check urine protein creatinine ratio and check renal ultrasound and make any further recommendations according to the findings on dose to test, patient will benefit with the strict diabetic control as well as a strict pressure control with target blood pressure of 1:30 over ATN target A1c of 7 or less, patient will benefit from in [place] vegetables in diet and minimizing animal protein
--- NOTE | 2016-07-05 14:24 | Progress Note ---
Assessment and Plan Assessment and plan: Patient is a 70-year-old woman with a history of dementia, CKD 3-4, anemia of chronic disease, hypothyroidism, hypertension, type 2 diabetes mellitus, bipolar disorder and arthritis who presented on 06/30/2016 with mental health concerns per family. Patient did not go home. She remained in the ER until 11/2015, until it was decided that she needed placement. She needs 3 night inpatient hospital stay. 1. Urinary tract infection with acute encephalopathy, POA started on Bactrim by ED physician Dr. Iraheta. Urine culture was uncollected, Stop the Bactrim because of renal dysfunction, started iv rocephin 2. CKD stage IV: repeat bmp am 3. Hypothyroidism, chronic worsening 4. Hypertension, chronic and worsening: Adjust antihypertensive, Continue to monitor 5. DVT prophylaxis: SCDs, stop heparin due to the anemia 6. Acute on chronic anemia chronic disease: Monitor closely, CBC a.m. Full code Disposition: Continue inpatient care, for placement New issues: Drop in hematocrit: Repeat H&H and check fecal occult blood test Worsening renal function==>negrito/ckd most likely due to vasomotor nephropathy versus interstitial nephritis due to Bactrim versus other: Consulted nephrology Elevated TSH: Increased Synthroid The high probability of a clinically significant, sudden or life threatening deterioration of the [neurologic,cardiac] system(s) required my full and direct attention, intervention and personal management. The aggregate critical care time was [ 40 ] minutes. This time is in addition to time spent performing reported procedures but includes the following: [x] Data Review and interpretation [x] Patient assessment and monitoring of vital signs [x] Documentation [x] Medication orders and management History Interval history: Patient seen and examined. Follow up on current diagnosis. Overnight uneventful. No cp, sob, n/v or severe headaches. Imaging, old records, testing, labs, nursing notes reviewed. Hospitalist Physical - Physical exam Narrative exam: GEN: WDWN, NAD, AWAKE, ALERT, ORIENTATED 2 CVS: RRR, NORMAL S1S2 LUNGS/CHEST: CTA B, NORMAL CHEST EXPANSION B, GOOD AIR ENTRY B ABD: SOFT NTND, GBS, NO REBOUND OR GUARDING EXT/SKIN: NO SIGNIFICANT EDEMA OR RASH MSK: FROM X 4 EXTREMITIES NEURO: CN 2-12 GROSSLY INTACT, NO NEW FOCAL DEFICITS PSY: CALM - Constitutional Vitals: Temp Pulse Resp BP Pulse Ox 98.7 F 69 20 135/64 100 07/05/16 08:54 07/05/16 08:54 07/05/16 08:54 07/05/16 08:54 07/05/16 08:54 General appearance: Present: no acute distress Results - Labs CBC & Chem 7: 07/05/16 11:45 07/05/16 05:08 Labs: Laboratory Last Values WBC 4.0 K/mm3 (4.5-11.0) L 07/05/16 05:08 RBC 2.87 M/mm3 (3.65-5.03) L 07/05/16 05:08 Hgb 8.3 gm/dl (10.1-14.3) L 07/05/16 11:45 Hct 25.9 % (30.3-42.9) L 07/05/16 11:45 MCV 84 fl (79-97) 07/05/16 05:08 MCH 27 pg (28-32) L 07/05/16 05:08 MCHC 32 % (30-34) 07/05/16 05:08 RDW 16.0 % (13.2-15.2) H 07/05/16 05:08 Plt Count 220 K/mm3 (140-440) 07/05/16 05:08 Lymph % (Auto) 24.7 % (13.4-35.0) 07/04/16 06:21 [place] % (Auto) 10.7 % (0.0-7.3) H 07/04/16 06:21 Eos % (Auto) 3.6 % (0.0-4.3) 07/04/16 06:21 Baso % (Auto) 0.8 % (0.0-1.8) 07/04/16 06:21 Lymph # 1.0 K/mm3 (1.2-5.4) L 07/04/16 06:21 [place] # 0.4 K/mm3 (0.0-0.8) 07/04/16 06:21 Eos # 0.1 K/mm3 (0.0-0.4) 07/04/16 06:21 Baso # 0.0 K/mm3 (0.0-0.1) 07/04/16 06:21 Seg Neutrophils % 60.2 % (40.0-70.0) 07/04/16 06:21 Seg Neutrophils # 2.4 K/mm3 (1.8-7.7) 07/04/16 06:21 Sodium 142 mmol/L (137-145) 07/05/16 05:08 Potassium 4.3 mmol/L (3.6-5.0) 07/05/16 05:08 Chloride 104.5 mmol/L (98-107) 07/05/16 05:08 Carbon Dioxide 21 mmol/L (22-30) L 07/05/16 05:08 Anion Gap 21 mmol/L 07/05/16 05:08 BUN 32 mg/dL (7-17) H 07/05/16 05:08 Creatinine 3.7 mg/dL (0.7-1.2) H 07/05/16 05:08 Estimated GFR 15 ml/min 07/05/16 05:08 BUN/Creatinine Ratio 8.64 % 07/05/16 05:08 Glucose 90 mg/dL (65-100) 07/05/16 05:08 POC Glucose 106 (70-105) H 07/04/16 16:33 Calcium 7.8 mg/dL (8.4-10.2) L 07/05/16 05:08 TSH 8.090 mlU/mL (0.270-4.200) H 07/05/16 05:08 Urine Color Yellow (Yellow) 06/30/16 11:34 Urine Turbidity Slightly-cloudy (Clear) 06/30/16 11:34 Urine pH 6.0 (5.0-7.0) 06/30/16 11:34 Ur Specific [place] 1.006 (1.003-1.030) 06/30/16 11:34 Urine Protein 100 mg/dl mg/dL (Negative) 06/30/16 11:34 Urine Glucose (UA) Neg mg/dL (Negative) 06/30/16 11:34 Urine Ketones Neg mg/dL (Negative) 06/30/16 11:34 Urine Blood Neg (Negative) 06/30/16 11:34 Urine Nitrite Neg (Negative) 06/30/16 11:34 Urine Bilirubin Neg (Negative) 06/30/16 11:34 Urine Urobilinogen < 2.0 mg/dL (<2.0) 06/30/16 11:34 Ur Leukocyte Esterase Lg (Negative) 06/30/16 11:34 Urine WBC (Auto) 76.0 /HPF (0.0-6.0) H 06/30/16 11:34 Urine RBC (Auto) 2.0 /HPF (0.0-6.0) 06/30/16 11:34 U Epithel Cells (Auto) 1.0 /HPF (0-13.0) 06/30/16 11:34 Urine Bacteria (Auto) 1+ /HPF (Negative) 06/30/16 11:34 Urine Opiates Screen Presumptive negative 06/30/16 11:34 Urine Methadone Screen Presumptive negative 06/30/16 11:34 Acetaminophen < 15.0 ug/mL (10.0-30.0) 06/30/16 12:01 Ur Barbiturates Screen Presumptive negative 06/30/16 11:34 Ur Phencyclidine Scrn Presumptive negative 06/30/16 11:34 Ur Amphetamines Screen Presumptive negative 06/30/16 11:34 U Benzodiazepines Scrn Presumptive negative 06/30/16 11:34 Urine Cocaine Screen Presumptive negative 06/30/16 11:34 U Marijuana (THC) Screen Presumptive negative 06/30/16 11:34 Drugs of Abuse Note Disclamer 06/30/16 11:34 Plasma/Serum Alcohol < 0.01 gm% (0-0.07) 06/30/16 12:01
[2016-07-05] MEDS: NACL 0.9% 1000 ML 1,000 ML IV SCH (18:43)
[2016-07-06 02:48] LABS: Bilirubin,Urine NEG (Negative); Blood,Urine NEG (Negative); Ketones,Urine NEG (Negative); Leukocyte Esterase,Urine MOD (Negative); Nitrite,Urine NEG (Negative); Protein,Urine <15 mg/dL mg/dL (Negative); Urobilinogen,Urine < 2.0 mg/dL (<2.0)
[2016-07-06] MEDS: SYNTHROID PO SCH (05:59)
[2016-07-06] MEDS: NACL 0.9% 1000 ML 1,000 ML IV SCH (06:04)
[2016-07-06 06:31] LABS: Hematocrit 23.5 % (30.3-42.9); Hemoglobin 7.5 gm/dl (10.1-14.3); Mean Corpuscular HGB Conc 32 % (30-34); Mean Corpuscular Hemoglobin 27 pg (28-32); Mean Corpuscular Volume 84 fl (79-97); Platelet Count 197 K/mm3 (140-440); Red Blood Count 2.79 M/mm3 (3.65-5.03); Red Cell Distribution Width 16.5 % (13.2-15.2)
[2016-07-06 06:54] LABS: BUN/Creatinine Ratio 9.41; Calcium 7.5 mg/dL (8.4-10.2); Chloride 109.3 mmol/L (98-107); Potassium 4.3 mmol/L (3.6-5.0)
[2016-07-06] MEDS: NOVOLOG SUB-Q SCH ×4 (07:30→22:54)
--- NOTE | 2016-07-06 09:27 | Ultrasound Report ---
ULTRASOUND RENAL BILATERAL: HISTORY: Acute renal insufficiency. TECHNIQUE: Transabdominal ultrasound with color Doppler interrogation. COMPARISON: No relevant comparison. FINDINGS: The right kidney measures 8.9 x 3.8 x 4.6 cm. Right renal cortex: 1.1 cm. A 1.1 cm simple cyst is noted in the midpole of the right kidney. The left kidney measures 7.4 x 4.2 x 3.9 cm. Left renal cortex: 1.3 cm. No focal left renal lesion. Both kidneys are slightly small in size with increased echotexture consistent with chronic renal parenchymal disease. No evidence for hydronephrosis or perinephric fluid. The bladder is empty. IMPRESSION: Chronic renal parenchymal disease. 1.1 cm simple cyst in the right kidney. No focal renal lesion or obstructive uropathy.
[2016-07-06] MEDS: ROCEPHIN/NS 1 GM/50 ML 50 ML IV SCH (10:50)
[2016-07-06] MEDS: NORMODYNE PO SCH ×2 (10:52→22:53)
[2016-07-06] MEDS: NEURONTIN PO SCH ×2 (10:52→22:53)
[2016-07-06] MEDS ORDERED: DULCOLAX PR ONE (12:35)
--- NOTE | 2016-07-06 12:36 | Progress Note ---
Assessment and Plan Assessment and plan: Patient is a 70-year-old woman with a history of dementia, CKD 3-4, anemia of chronic disease, hypothyroidism, hypertension, type 2 diabetes mellitus, bipolar disorder and arthritis who presented on 06/30/2016 with mental health concerns per family. Patient did not go home. She remained in the ER until 11/2015, until it was decided that she needed placement. She needs 3 night inpatient hospital stay. 1. Urinary tract infection with acute encephalopathy, POA started on Bactrim by ED physician Dr. Iraheta. Urine culture was uncollected, Stop the Bactrim because of renal dysfunction, started iv rocephin 2. CKD stage IV: repeat bmp am 3. Hypothyroidism, chronic worsening 4. Hypertension, chronic and worsening: Adjust antihypertensive, Continue to monitor 5. DVT prophylaxis: SCDs, stop heparin due to the anemia 6. Acute on chronic anemia chronic disease: Monitor closely, CBC a.m. Full code Disposition: Continue inpatient care, for placement New issues: worsening Drop in hematocrit: repeat h/h, FOBT uncollect, d/w nursing. IF positive will transfuse. Worsening renal function==>negrito/ckd most likely due to vasomotor nephropathy versus interstitial nephritis due to Bactrim versus other: Consulted nephrology Elevated TSH: Increased Synthroid She has triggered a level 2 pre-authorization from the state History Interval history: Patient seen and examined. Follow up on current diagnosis. Overnight uneventful. No cp, sob, n/v or severe headaches. Imaging, old records, testing, labs, nursing notes reviewed. Hospitalist Physical - Physical exam Narrative exam: GEN: WDWN, NAD, AWAKE, ALERT, ORIENTATED 2 CVS: RRR, NORMAL S1S2 LUNGS/CHEST: CTA B, NORMAL CHEST EXPANSION B, GOOD AIR ENTRY B ABD: SOFT NTND, GBS, NO REBOUND OR GUARDING EXT/SKIN: NO SIGNIFICANT EDEMA OR RASH MSK: FROM X 4 EXTREMITIES NEURO: CN 2-12 GROSSLY INTACT, NO NEW FOCAL DEFICITS PSY: CALM - Constitutional Vitals: Temp Pulse Resp BP Pulse Ox 97.6 F 60 16 147/69 100 07/06/16 07:30 07/06/16 07:30 07/06/16 07:30 07/06/16 07:30 07/06/16 07:30 General appearance: Present: no acute distress Results - Labs CBC & Chem 7: 12/08/16 05:55 07/06/16 05:55 Labs: Laboratory Last Values WBC 3.0 K/mm3 (4.5-11.0) L 07/06/16 05:55 RBC 2.79 M/mm3 (3.65-5.03) L 07/06/16 05:55 Hgb 7.5 gm/dl (10.1-14.3) L 07/06/16 05:55 Hct 23.5 % (30.3-42.9) L 07/06/16 05:55 MCV 84 fl (79-97) 07/06/16 05:55 MCH 27 pg (28-32) L 07/06/16 05:55 MCHC 32 % (30-34) 07/06/16 05:55 RDW 16.5 % (13.2-15.2) H 07/06/16 05:55 Plt Count 197 K/mm3 (140-440) 07/06/16 05:55 Lymph % (Auto) 24.7 % (13.4-35.0) 07/04/16 06:21 [place] % (Auto) 10.7 % (0.0-7.3) H 07/04/16 06:21 Eos % (Auto) 3.6 % (0.0-4.3) 07/04/16 06:21 Baso % (Auto) 0.8 % (0.0-1.8) 07/04/16 06:21 Lymph # 1.0 K/mm3 (1.2-5.4) L 07/04/16 06:21 [place] # 0.4 K/mm3 (0.0-0.8) 07/04/16 06:21 Eos # 0.1 K/mm3 (0.0-0.4) 07/04/16 06:21 Baso # 0.0 K/mm3 (0.0-0.1) 07/04/16 06:21 Seg Neutrophils % 60.2 % (40.0-70.0) 07/04/16 06:21 Seg Neutrophils # 2.4 K/mm3 (1.8-7.7) 07/04/16 06:21 Sodium 144 mmol/L (137-145) 07/06/16 05:55 Potassium 4.3 mmol/L (3.6-5.0) 07/06/16 05:55 Chloride 109.3 mmol/L (98-107) H 07/06/16 05:55 Carbon Dioxide 20 mmol/L (22-30) L 07/06/16 05:55 Anion Gap 19 mmol/L 07/06/16 05:55 BUN 32 mg/dL (7-17) H 07/06/16 05:55 Creatinine 3.4 mg/dL (0.7-1.2) H 07/06/16 05:55 Estimated GFR 16 ml/min 07/06/16 05:55 BUN/Creatinine Ratio 9.41 % 07/06/16 05:55 Glucose 82 mg/dL (65-100) 07/06/16 05:55 POC Glucose 104 (70-105) 07/06/16 11:29 Calcium 7.5 mg/dL (8.4-10.2) L 07/06/16 05:55 TSH 8.090 mlU/mL (0.270-4.200) H 07/05/16 05:08 Urine Color Straw (Yellow) 07/06/16 01:18 Urine Turbidity Clear (Clear) 07/06/16 01:18 Urine pH 6.0 (5.0-7.0) 07/06/16 01:18 Ur Specific [place] 1.003 (1.003-1.030) 07/06/16 01:18 Urine Protein <15 mg/dl mg/dL (Negative) 07/06/16 01:18 Urine Glucose (UA) Neg mg/dL (Negative) 07/06/16 01:18 Urine Ketones Neg mg/dL (Negative) 07/06/16 01:18 Urine Blood Neg (Negative) 07/06/16 01:18 Urine Nitrite Neg (Negative) 07/06/16 01:18 Urine Bilirubin Neg (Negative) 07/06/16 01:18 Urine Urobilinogen < 2.0 mg/dL (<2.0) 07/06/16 01:18 Ur Leukocyte Esterase Mod (Negative) 07/06/16 01:18 Urine WBC (Auto) 7.0 /HPF (0.0-6.0) H 07/06/16 01:18 Urine RBC (Auto) 3.0 /HPF (0.0-6.0) 07/06/16 01:18 U Epithel Cells (Auto) 1.0 /HPF (0-13.0) 06/30/16 11:34 Urine Bacteria (Auto) 1+ /HPF (Negative) 06/30/16 11:34 Urine Eosinophils None seen (None Seen) 07/06/16 01:18 Urine Creatinine 36.6 mg/dL (0.1-20.0) H 07/06/16 01:18 Urine Microalbumin 6.5 mg/dL (0.1-34.0) 07/06/16 01:18 Microalb/Creat Ratio 177.5 ug/mg 07/06/16 01:18 Urine Sodium 28 mEq/L 07/06/16 01:18 Urine Opiates Screen Presumptive negative 06/30/16 11:34 Urine Methadone Screen Presumptive negative 06/30/16 11:34 Acetaminophen < 15.0 ug/mL (10.0-30.0) 06/30/16 12:01 Ur Barbiturates Screen Presumptive negative 06/30/16 11:34 Ur Phencyclidine Scrn Presumptive negative 06/30/16 11:34 Ur Amphetamines Screen Presumptive negative 06/30/16 11:34 U Benzodiazepines Scrn Presumptive negative 06/30/16 11:34 Urine Cocaine Screen Presumptive negative 06/30/16 11:34 U Marijuana (THC) Screen Presumptive negative 06/30/16 11:34 Drugs of Abuse Note Disclamer 06/30/16 11:34 Plasma/Serum Alcohol < 0.01 gm% (0-0.07) 06/30/16 12:01
[2016-07-07] MEDS: SYNTHROID PO SCH (05:58)
[2016-07-07 07:04] LABS: Chloride 111.1 mmol/L (98-107); Potassium 4.7 mmol/L (3.6-5.0)
[2016-07-07] MEDS: NOVOLOG SUB-Q SCH ×3 (11:00→17:36)
[2016-07-07] MEDS: NEURONTIN PO SCH ×2 (11:02→23:04)
[2016-07-07] MEDS: NORMODYNE PO SCH ×2 (11:03→23:04)
[2016-07-07] MEDS: ROCEPHIN/NS 1 GM/50 ML 50 ML IV SCH (11:04)
--- NOTE | 2016-07-07 11:31 | Progress Note ---
Assessment and Plan Assessment and plan: Patient is a 70-year-old woman with a history of dementia, CKD 3-4, anemia of chronic disease, hypothyroidism, hypertension, type 2 diabetes mellitus, bipolar disorder and arthritis who presented on 06/30/2016 with mental health concerns per family. Patient did not go home. She remained in the ER until 11/2015, until it was decided that she needed placement. She needs 3 night inpatient hospital stay. 1. Urinary tract infection with acute encephalopathy, POA started on Bactrim by ED physician Dr. Iraheta. Urine culture was uncollected, Stop the Bactrim because of renal dysfunction, started iv rocephin 2. CKD stage IV: Monitor closely 3. Hypothyroidism, chronic and worsening 4. Hypertension, chronic and worsening: Adjust antihypertensive, Continue to monitor 5. DVT prophylaxis: SCDs, stop heparin due to the anemia 6. Acute on chronic anemia chronic disease: Monitor closely Full code Disposition: Continue inpatient care, for placement New issues: worsening Drop in hematocrit: repeat h/h, FOBT negative so no anemia most likely due to chronic disease Worsening renal function==>negrito/ckd most likely due to vasomotor nephropathy versus interstitial nephritis due to Bactrim versus other: Consulted nephrology- -> Now improving Elevated TSH: Increased Synthroid She has triggered a level 2 pre-authorization from the state History Interval history: Patient seen and examined. Follow up on current diagnosis. Overnight uneventful. No cp, sob, n/v or severe headaches. Imaging, old records, testing, labs, nursing notes reviewed. Hospitalist Physical - Physical exam Narrative exam: GEN: WDWN, NAD, AWAKE, ALERT, ORIENTATED 2 CVS: RRR, NORMAL S1S2 LUNGS/CHEST: CTA B, NORMAL CHEST EXPANSION B, GOOD AIR ENTRY B ABD: SOFT NTND, GBS, NO REBOUND OR GUARDING EXT/SKIN: NO SIGNIFICANT EDEMA OR RASH MSK: FROM X 4 EXTREMITIES NEURO: CN 2-12 GROSSLY INTACT, NO NEW FOCAL DEFICITS PSY: CALM - Constitutional Vitals: Temp Pulse Resp BP Pulse Ox 98.2 F 63 20 184/77 100 07/07/16 08:14 07/07/16 08:14 07/07/16 08:14 07/07/16 08:14 07/07/16 08:14 General appearance: Present: no acute distress Results - Labs CBC & Chem 7: 07/06/16 05:55 07/07/16 06:19 Labs: Laboratory Last Values WBC 3.0 K/mm3 (4.5-11.0) L 07/06/16 05:55 RBC 2.79 M/mm3 (3.65-5.03) L 07/06/16 05:55 Hgb 7.5 gm/dl (10.1-14.3) L 07/06/16 05:55 Hct 23.5 % (30.3-42.9) L 07/06/16 05:55 MCV 84 fl (79-97) 07/06/16 05:55 MCH 27 pg (28-32) L 07/06/16 05:55 MCHC 32 % (30-34) 07/06/16 05:55 RDW 16.5 % (13.2-15.2) H 07/06/16 05:55 Plt Count 197 K/mm3 (140-440) 07/06/16 05:55 Lymph % (Auto) 24.7 % (13.4-35.0) 07/04/16 06:21 [place] % (Auto) 10.7 % (0.0-7.3) H 07/04/16 06:21 Eos % (Auto) 3.6 % (0.0-4.3) 07/04/16 06:21 Baso % (Auto) 0.8 % (0.0-1.8) 07/04/16 06:21 Lymph # 1.0 K/mm3 (1.2-5.4) L 07/04/16 06:21 [place] # 0.4 K/mm3 (0.0-0.8) 07/04/16 06:21 Eos # 0.1 K/mm3 (0.0-0.4) 07/04/16 06:21 Baso # 0.0 K/mm3 (0.0-0.1) 07/04/16 06:21 Seg Neutrophils % 60.2 % (40.0-70.0) 07/04/16 06:21 Seg Neutrophils # 2.4 K/mm3 (1.8-7.7) 07/04/16 06:21 Sodium 145 mmol/L (137-145) 07/07/16 06:19 Potassium 4.7 mmol/L (3.6-5.0) 07/07/16 06:19 Chloride 111.1 mmol/L (98-107) H 07/07/16 06:19 Carbon Dioxide 20 mmol/L (22-30) L 07/07/16 06:19 Anion Gap 19 mmol/L 07/07/16 06:19 BUN 31 mg/dL (7-17) H 07/07/16 06:19 Creatinine 3.1 mg/dL (0.7-1.2) H 07/07/16 06:19 Estimated GFR 18 ml/min 07/07/16 06:19 BUN/Creatinine Ratio 10.00 % 07/07/16 06:19 Glucose 86 mg/dL (65-100) 07/07/16 06:19 POC Glucose 93 (70-105) 07/07/16 05:53 Calcium 8.0 mg/dL (8.4-10.2) L 07/07/16 06:19 TSH 8.090 mlU/mL (0.270-4.200) H 07/05/16 05:08 Urine Color Straw (Yellow) 07/06/16 01:18 Urine Turbidity Clear (Clear) 07/06/16 01:18 Urine pH 6.0 (5.0-7.0) 07/06/16 01:18 Ur Specific [place] 1.003 (1.003-1.030) 07/06/16 01:18 Urine Protein <15 mg/dl mg/dL (Negative) 07/06/16 01:18 Urine Glucose (UA) Neg mg/dL (Negative) 07/06/16 01:18 Urine Ketones Neg mg/dL (Negative) 07/06/16 01:18 Urine Blood Neg (Negative) 07/06/16 01:18 Urine Nitrite Neg (Negative) 07/06/16 01:18 Urine Bilirubin Neg (Negative) 07/06/16 01:18 Urine Urobilinogen < 2.0 mg/dL (<2.0) 07/06/16 01:18 Ur Leukocyte Esterase Mod (Negative) 07/06/16 01:18 Urine WBC (Auto) 7.0 /HPF (0.0-6.0) H 07/06/16 01:18 Urine RBC (Auto) 3.0 /HPF (0.0-6.0) 07/06/16 01:18 U Epithel Cells (Auto) 1.0 /HPF (0-13.0) 06/30/16 11:34 Urine Bacteria (Auto) 1+ /HPF (Negative) 06/30/16 11:34 Urine Eosinophils None seen (None Seen) 07/06/16 01:18 Urine Creatinine 36.6 mg/dL (0.1-20.0) H 07/06/16 01:18 Urine Microalbumin 6.5 mg/dL (0.1-34.0) 07/06/16 01:18 Microalb/Creat Ratio 177.5 ug/mg 07/06/16 01:18 Urine Sodium 28 mEq/L 07/06/16 01:18 Urine Opiates Screen Presumptive negative 06/30/16 11:34 Urine Methadone Screen Presumptive negative 06/30/16 11:34 Acetaminophen < 15.0 ug/mL (10.0-30.0) 06/30/16 12:01 Ur Barbiturates Screen Presumptive negative 06/30/16 11:34 Ur Phencyclidine Scrn Presumptive negative 06/30/16 11:34 Ur Amphetamines Screen Presumptive negative 06/30/16 11:34 U Benzodiazepines Scrn Presumptive negative 06/30/16 11:34 Urine Cocaine Screen Presumptive negative 06/30/16 11:34 U Marijuana (THC) Screen Presumptive negative 06/30/16 11:34 Drugs of Abuse Note Disclamer 06/30/16 11:34 Plasma/Serum Alcohol < 0.01 gm% (0-0.07) 06/30/16 12:01
--- NOTE | 2016-07-07 11:41 | Progress Note ---
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 In the ED her blood pressure was high and she was on BP meds and she had UTI and was started on Bactrim. The patient said her daughter was incarcerated and had difficulty of getting her medications while she was at home. She asked for placement in senior living ([facility]). She was admitted to the floor for the management of UTI and placement. Mental Status Exam - Vital signs Last Vital Signs Temp 98.2 F 07/07/16 08:14 Pulse 63 07/07/16 08:14 Resp 20 07/07/16 08:14 BP 184/77 07/07/16 08:14 Pulse Ox 100 07/07/16 08:14 - Exam Narrative exam: Alert and oriented x 4. Makes eye contact. speech is impaired r/t no teeth. Mood is pleasant overall, but she's a bit labile--singing and dancing in her chair and easily irritated when asked about her . Affect is congruent-- full range. thought process is tangential. content is not overtly delusional, but hyper-congregation. she denies SI/HI and denies A/VH. she is not overtly responding to internal stimuli but she does break out into song and dance several times. Her memory for recent events is intact, remote is poor. Insight and judgment shows some impairment. Orientation: time, place, person Affect: other (full range) Mood: other (labile, euphoric to irritable quickly) Thought content: other (relevant) Thought Process: Tangential Perceptions: none Speech: other (singing) Concentration: distractible Motor activity: other (dancing in her chair) Level of consciousness: alert Memory: Recent Intact Sleep Symptoms: None Interaction: cooperative, pleasant Assessment and Plan ASSESSMENT 69yo F admitted with: UTI Bipolar Disorder Dementia Family informed staff they would not be able to care for her at home anymore as they were being evicted. - Patient Problems (1) Dementia Current Visit: No Status: Acute Qualifiers: Dementia behavioral disturbance: with behavioral disturbance Plan to address problem: RECOMMEND 1.Continue Zyprexa 10mg po HS 2. Zyprexa Zydis 5mg SL Q12H PRN agitation/psychosis 3. NH placement 4. Psych will follow
--- NOTE | 2016-07-07 15:38 | Progress Note ---
Assessment and Plan - Patient Problems (1) GABRIELA (acute kidney injury) Current Visit: Yes Status: Acute Plan to address problem: Acute kidney injury is improving, Avoid nephrotoxic agent, continue IV hydration, monitor renal function (2) Chronic renal insufficiency Current Visit: Yes Status: Acute Plan to address problem: Chronic kidney disease is most likely secondary to diabetes mellitus and hypertension, we will check urine protein creatinine ratio and check renal ultrasound and make any further recommendations according to the findings on dose to test, patient will benefit with the strict diabetic control as well as a strict pressure control with target blood pressure of 1:30 over ATN target A1c of 7 or less, patient will benefit from in [place] vegetables in diet and minimizing animal protein Urine protein creatinine ratio is nonnephrotic, renal ultrasound shows a small echogenic kidneys consistent with chronic kidney disease secondary to hypertension, recommendations remains the same Subjective Date of service: 07/07/16 Interval history: No complaints, no nausea vomiting diarrhea Objective - Exam Narrative Exam: Middle-aged female in no acute distress, HEENT normocephalic/atraumatic pink conjunctiva anicteric sclera, Neck is supple no JVD trachea central, Chest is bilateral coarse breath sound equal chest expansion, Heart S1-S2 regular rate and rhythm, Abdomen is soft nontender no organomegaly, Extremities no edema cyanosis or clubbing, Neuro alert oriented 3 no focal deficit - Vital Signs Vital signs: Vital Signs - 12hr 07/07/16 07/07/16 08:14 12:00 Temperature 98.2 F 99.2 F Pulse Rate [ 63 62 Right Radial] Respiratory 20 20 Rate Blood Pressure 184/77 150/68 [Right Arm] O2 Sat by Pulse 100 100 Oximetry - Lab 07/06/16 05:55 07/07/16 06:19 Most recent lab results Calcium 8.0 mg/dL (8.4-10.2) L 07/07/16 06:19 Urine Creatinine 36.6 mg/dL (0.1-20.0) H 07/06/16 01:18 Urine Sodium 28 mEq/L 07/06/16 01:18
[2016-07-08] MEDS: NOVOLOG SUB-Q SCH ×5 (00:09→21:55)
[2016-07-08] MEDS: SYNTHROID PO SCH (06:04)
[2016-07-08] MEDS: NACL 0.9% 1000 ML 1,000 ML IV SCH ×2 (08:53→22:01)
[2016-07-08] MEDS: ROCEPHIN/NS 1 GM/50 ML 50 ML IV SCH (09:36)
[2016-07-08] MEDS: NORMODYNE PO SCH ×2 (09:37→21:57)
[2016-07-08] MEDS: NEURONTIN PO SCH ×2 (09:37→21:54)
--- NOTE | 2016-07-08 11:31 | Progress Note ---
Assessment and Plan Assessment and plan: Patient is a 70-year-old woman with a history of dementia, CKD 3-4, anemia of chronic disease, hypothyroidism, hypertension, type 2 diabetes mellitus, bipolar disorder and arthritis who presented on 06/30/2016 with mental health concerns per family. Patient did not go home. She remained in the ER until 11/2015, until it was decided that she needed placement. She needs 3 night inpatient hospital stay. 1. Urinary tract infection with acute encephalopathy, POA started on Bactrim by ED physician Dr. Iraheta. Urine culture was uncollected, Stop the Bactrim because of renal dysfunction, started iv rocephin 2. CKD stage IV: Monitor closely 3. Hypothyroidism, chronic and worsening 4. Hypertension, chronic and worsening: Adjust antihypertensive, Continue to monitor 5. DVT prophylaxis: SCDs, stop heparin due to the anemia 6. Acute on chronic anemia chronic disease: Monitor closely Full code Disposition: Continue inpatient care, for placement New issues: worsening Drop in hematocrit: repeat h/h, FOBT negative so no anemia most likely due to chronic disease Worsening renal function==>negrito/ckd most likely due to vasomotor nephropathy versus interstitial nephritis due to Bactrim versus other: Consulted nephrology- -> Now improving Elevated TSH: Increased Synthroid She has triggered a level 2 pre-authorization from the state worsening hypertension: iv hydralazine prn am labs History Interval history: Patient seen and examined. Follow up on current diagnosis. Overnight uneventful. No cp, sob, n/v or severe headaches. Imaging, old records, testing, labs, nursing notes reviewed. Hospitalist Physical - Physical exam Narrative exam: GEN: WDWN, NAD, AWAKE, ALERT, ORIENTATED 2 CVS: RRR, NORMAL S1S2 LUNGS/CHEST: CTA B, NORMAL CHEST EXPANSION B, GOOD AIR ENTRY B ABD: SOFT NTND, GBS, NO REBOUND OR GUARDING EXT/SKIN: NO SIGNIFICANT EDEMA OR RASH MSK: FROM X 4 EXTREMITIES NEURO: CN 2-12 GROSSLY INTACT, NO NEW FOCAL DEFICITS PSY: CALM - Constitutional Vitals: Temp Pulse Resp BP Pulse Ox 99.2 F 60 16 192/82 98 07/08/16 07:38 07/08/16 09:37 07/08/16 07:38 07/08/16 09:37 07/08/16 07:38 General appearance: Present: no acute distress Results - Labs CBC & Chem 7: 07/06/16 05:55 07/07/16 06:19 Labs: Laboratory Last Values WBC 3.0 K/mm3 (4.5-11.0) L 07/06/16 05:55 RBC 2.79 M/mm3 (3.65-5.03) L 07/06/16 05:55 Hgb 7.5 gm/dl (10.1-14.3) L 07/06/16 05:55 Hct 23.5 % (30.3-42.9) L 07/06/16 05:55 MCV 84 fl (79-97) 07/06/16 05:55 MCH 27 pg (28-32) L 07/06/16 05:55 MCHC 32 % (30-34) 07/06/16 05:55 RDW 16.5 % (13.2-15.2) H 07/06/16 05:55 Plt Count 197 K/mm3 (140-440) 07/06/16 05:55 Lymph % (Auto) 24.7 % (13.4-35.0) 07/04/16 06:21 [place] % (Auto) 10.7 % (0.0-7.3) H 07/04/16 06:21 Eos % (Auto) 3.6 % (0.0-4.3) 07/04/16 06:21 Baso % (Auto) 0.8 % (0.0-1.8) 07/04/16 06:21 Lymph # 1.0 K/mm3 (1.2-5.4) L 07/04/16 06:21 [place] # 0.4 K/mm3 (0.0-0.8) 07/04/16 06:21 Eos # 0.1 K/mm3 (0.0-0.4) 07/04/16 06:21 Baso # 0.0 K/mm3 (0.0-0.1) 07/04/16 06:21 Seg Neutrophils % 60.2 % (40.0-70.0) 07/04/16 06:21 Seg Neutrophils # 2.4 K/mm3 (1.8-7.7) 07/04/16 06:21 Sodium 145 mmol/L (137-145) 07/07/16 06:19 Potassium 4.7 mmol/L (3.6-5.0) 07/07/16 06:19 Chloride 111.1 mmol/L (98-107) H 07/07/16 06:19 Carbon Dioxide 20 mmol/L (22-30) L 07/07/16 06:19 Anion Gap 19 mmol/L 07/07/16 06:19 BUN 31 mg/dL (7-17) H 07/07/16 06:19 Creatinine 3.1 mg/dL (0.7-1.2) H 07/07/16 06:19 Estimated GFR 18 ml/min 07/07/16 06:19 BUN/Creatinine Ratio 10.00 % 07/07/16 06:19 Glucose 86 mg/dL (65-100) 07/07/16 06:19 POC Glucose 85 (70-105) 07/08/16 06:37 Calcium 8.0 mg/dL (8.4-10.2) L 07/07/16 06:19 TSH 8.090 mlU/mL (0.270-4.200) H 07/05/16 05:08 Urine Color Straw (Yellow) 07/06/16 01:18 Urine Turbidity Clear (Clear) 07/06/16 01:18 Urine pH 6.0 (5.0-7.0) 07/06/16 01:18 Ur Specific [place] 1.003 (1.003-1.030) 07/06/16 01:18 Urine Protein <15 mg/dl mg/dL (Negative) 07/06/16 01:18 Urine Glucose (UA) Neg mg/dL (Negative) 07/06/16 01:18 Urine Ketones Neg mg/dL (Negative) 07/06/16 01:18 Urine Blood Neg (Negative) 07/06/16 01:18 Urine Nitrite Neg (Negative) 07/06/16 01:18 Urine Bilirubin Neg (Negative) 07/06/16 01:18 Urine Urobilinogen < 2.0 mg/dL (<2.0) 07/06/16 01:18 Ur Leukocyte Esterase Mod (Negative) 07/06/16 01:18 Urine WBC (Auto) 7.0 /HPF (0.0-6.0) H 07/06/16 01:18 Urine RBC (Auto) 3.0 /HPF (0.0-6.0) 07/06/16 01:18 U Epithel Cells (Auto) 1.0 /HPF (0-13.0) 06/30/16 11:34 Urine Bacteria (Auto) 1+ /HPF (Negative) 06/30/16 11:34 Urine Eosinophils None seen (None Seen) 07/06/16 01:18 Urine Creatinine 36.6 mg/dL (0.1-20.0) H 07/06/16 01:18 Urine Microalbumin 6.5 mg/dL (0.1-34.0) 07/06/16 01:18 Microalb/Creat Ratio 177.5 ug/mg 07/06/16 01:18 Urine Sodium 28 mEq/L 07/06/16 01:18 Urine Opiates Screen Presumptive negative 06/30/16 11:34 Urine Methadone Screen Presumptive negative 06/30/16 11:34 Acetaminophen < 15.0 ug/mL (10.0-30.0) 06/30/16 12:01 Ur Barbiturates Screen Presumptive negative 06/30/16 11:34 Ur Phencyclidine Scrn Presumptive negative 06/30/16 11:34 Ur Amphetamines Screen Presumptive negative 06/30/16 11:34 U Benzodiazepines Scrn Presumptive negative 06/30/16 11:34 Urine Cocaine Screen Presumptive negative 06/30/16 11:34 U Marijuana (THC) Screen Presumptive negative 06/30/16 11:34 Drugs of Abuse Note Disclamer 06/30/16 11:34 Plasma/Serum Alcohol < 0.01 gm% (0-0.07) 06/30/16 12:01
[2016-07-09] MEDS: SYNTHROID PO SCH (05:44)
[2016-07-09] MEDS: D50W (25GM) IV PRN (06:14)
[2016-07-09] MEDS: NACL 0.9% 1000 ML 1,000 ML IV SCH ×2 (06:34→18:32)
[2016-07-09 06:41] LABS: Hematocrit 30.5 % (30.3-42.9); Hemoglobin 9.4 gm/dl (10.1-14.3); Mean Corpuscular HGB Conc 31 % (30-34); Mean Corpuscular Hemoglobin 27 pg (28-32); Mean Corpuscular Volume 86 fl (79-97); Platelet Count 233 K/mm3 (140-440); Red Blood Count 3.55 M/mm3 (3.65-5.03); Red Cell Distribution Width 17.1 % (13.2-15.2); White Blood Count 4.9 K/mm3 (4.5-11.0)
[2016-07-09 07:00] LABS: Calcium 8.5 mg/dL (8.4-10.2); Chloride 112.8 mmol/L (98-107); Potassium 5.4 mmol/L (3.6-5.0)
[2016-07-09] MEDS: NOVOLOG SUB-Q SCH ×4 (08:00→22:38)
--- NOTE | 2016-07-09 08:19 | Progress Note ---
Assessment and Plan - Patient Problems (1) Hypertension Current Visit: Yes Status: Acute Plan to address problem: Blood pressure elevated. Continued labetalol and hydralazine (2) Acute UTI Current Visit: No Status: Acute Plan to address problem: White blood cell count normal. Continue IV antibiotics. Follow fever curve (3) Renal failure (ARF), acute on chronic Current Visit: No Status: Acute Plan to address problem: Creatinine improved from 3.1-2.5 with IV fluid hydration. Continue IV fluid hydration (4) Encephalopathy acute Current Visit: Yes Status: Acute Plan to address problem: Resolved with improvement of urinary tract infection History Interval history: Patient awake alert states that she feels fine today. No new complaints today Hospitalist Physical - Constitutional Vitals: Temp Pulse Resp BP Pulse Ox 97.7 F 47 L 16 177/80 98 07/09/16 07:30 07/09/16 07:30 07/09/16 07:30 07/09/16 07:30 07/09/16 07:30 General appearance: Present: no acute distress - EENT Eyes: Present: PERRL, EOM intact ENT: hearing intact, clear oral mucosa - Neck Neck: Present: supple, normal ROM - Respiratory Respiratory effort: normal Respiratory: bilateral: CTA - Cardiovascular Rhythm: regular Heart Sounds: Present: S1 & S2 - Extremities Extremities: no ischemia - Abdominal General gastrointestinal: soft, non-tender, non-distended, normal bowel sounds - Psychiatric Psychiatric: appropriate mood/affect, intact judgment & insight - Neurologic Neurologic: CNII-XII intact Results - Labs CBC & Chem 7: 07/09/16 05:52 07/09/16 05:52 Labs: Laboratory Last Values WBC 4.9 K/mm3 (4.5-11.0) 07/09/16 05:52 RBC 3.55 M/mm3 (3.65-5.03) L 07/09/16 05:52 Hgb 9.4 gm/dl (10.1-14.3) L 07/09/16 05:52 Hct 30.5 % (30.3-42.9) D 07/09/16 05:52 MCV 86 fl (79-97) 07/09/16 05:52 MCH 27 pg (28-32) L 07/09/16 05:52 MCHC 31 % (30-34) 07/09/16 05:52 RDW 17.1 % (13.2-15.2) H 07/09/16 05:52 Plt Count 233 K/mm3 (140-440) 07/09/16 05:52 Lymph % (Auto) 24.7 % (13.4-35.0) 07/04/16 06:21 [place] % (Auto) 10.7 % (0.0-7.3) H 07/04/16 06:21 Eos % (Auto) 3.6 % (0.0-4.3) 07/04/16 06:21 Baso % (Auto) 0.8 % (0.0-1.8) 07/04/16 06:21 Lymph # 1.0 K/mm3 (1.2-5.4) L 07/04/16 06:21 [place] # 0.4 K/mm3 (0.0-0.8) 07/04/16 06:21 Eos # 0.1 K/mm3 (0.0-0.4) 07/04/16 06:21 Baso # 0.0 K/mm3 (0.0-0.1) 07/04/16 06:21 Seg Neutrophils % 60.2 % (40.0-70.0) 07/04/16 06:21 Seg Neutrophils # 2.4 K/mm3 (1.8-7.7) 07/04/16 06:21 Sodium 147 mmol/L (137-145) H 07/09/16 05:52 Potassium 5.4 mmol/L (3.6-5.0) H 07/09/16 05:52 Chloride 112.8 mmol/L (98-107) H 07/09/16 05:52 Carbon Dioxide 21 mmol/L (22-30) L 07/09/16 05:52 Anion Gap 19 mmol/L 07/09/16 05:52 BUN 30 mg/dL (7-17) H 07/09/16 05:52 Creatinine 2.5 mg/dL (0.7-1.2) H 07/09/16 05:52 Estimated GFR 23 ml/min 07/09/16 05:52 BUN/Creatinine Ratio 12.00 % 07/09/16 05:52 Glucose 21 mg/dL (65-100) L* 07/09/16 05:52 POC Glucose 100 (70-105) 12/11/16 06:29 Calcium 8.5 mg/dL (8.4-10.2) 07/09/16 05:52 TSH 8.090 mlU/mL (0.270-4.200) H 07/05/16 05:08 Urine Color Straw (Yellow) 07/06/16 01:18 Urine Turbidity Clear (Clear) 07/06/16 01:18 Urine pH 6.0 (5.0-7.0) 07/06/16 01:18 Ur Specific [place] 1.003 (1.003-1.030) 07/06/16 01:18 Urine Protein <15 mg/dl mg/dL (Negative) 07/06/16 01:18 Urine Glucose (UA) Neg mg/dL (Negative) 07/06/16 01:18 Urine Ketones Neg mg/dL (Negative) 07/06/16 01:18 Urine Blood Neg (Negative) 07/06/16 01:18 Urine Nitrite Neg (Negative) 07/06/16 01:18 Urine Bilirubin Neg (Negative) 07/06/16 01:18 Urine Urobilinogen < 2.0 mg/dL (<2.0) 07/06/16 01:18 Ur Leukocyte Esterase Mod (Negative) 07/06/16 01:18 Urine WBC (Auto) 7.0 /HPF (0.0-6.0) H 07/06/16 01:18 Urine RBC (Auto) 3.0 /HPF (0.0-6.0) 07/06/16 01:18 U Epithel Cells (Auto) 1.0 /HPF (0-13.0) 06/30/16 11:34 Urine Bacteria (Auto) 1+ /HPF (Negative) 06/30/16 11:34 Urine Eosinophils None seen (None Seen) 07/06/16 01:18 Urine Creatinine 36.6 mg/dL (0.1-20.0) H 07/06/16 01:18 Urine Microalbumin 6.5 mg/dL (0.1-34.0) 07/06/16 01:18 Microalb/Creat Ratio 177.5 ug/mg 07/06/16 01:18 Urine Sodium 28 mEq/L 07/06/16 01:18 Urine Opiates Screen Presumptive negative 06/30/16 11:34 Urine Methadone Screen Presumptive negative 06/30/16 11:34 Acetaminophen < 15.0 ug/mL (10.0-30.0) 06/30/16 12:01 Ur Barbiturates Screen Presumptive negative 06/30/16 11:34 Ur Phencyclidine Scrn Presumptive negative 06/30/16 11:34 Ur Amphetamines Screen Presumptive negative 06/30/16 11:34 U Benzodiazepines Scrn Presumptive negative 06/30/16 11:34 Urine Cocaine Screen Presumptive negative 06/30/16 11:34 U Marijuana (THC) Screen Presumptive negative 06/30/16 11:34 Drugs of Abuse Note Disclamer 06/30/16 11:34 Plasma/Serum Alcohol < 0.01 gm% (0-0.07) 06/30/16 12:01
[2016-07-09] MEDS: NEURONTIN PO SCH ×2 (11:07→22:34)
[2016-07-09] MEDS: NORMODYNE PO SCH ×2 (11:07→22:34)
[2016-07-09] MEDS: ROCEPHIN/NS 1 GM/50 ML 50 ML IV SCH (11:08)
[2016-07-10] MEDS: SYNTHROID PO SCH (05:34)
[2016-07-10] MEDS: D50W (25GM) IV PRN (05:49)
[2016-07-10 08:00] LABS: Basophils % (Auto) 0.4 % (0.0-1.8); Eosinophils % (Auto) 4.1 % (0.0-4.3); Hemoglobin 7.7 gm/dl (10.1-14.3); Mean Corpuscular HGB Conc 31 % (30-34); Mean Corpuscular Hemoglobin 27 pg (28-32); Mean Corpuscular Volume 86 fl (79-97); Platelet Count 197 K/mm3 (140-440); White Blood Count 4.7 K/mm3 (4.5-11.0)
[2016-07-10] MEDS: NOVOLOG SUB-Q SCH ×4 (08:17→21:54)
[2016-07-10 08:20] LABS: Alanine Aminotransferase 9 units/L (7-56); Albumin 3.5 g/dL (3.9-5); Albumin/Globulin Ratio 1.1 %; Alkaline Phosphatase 62 units/L (35-129); Anion Gap 21 mmol/L; BUN/Creatinine Ratio 12.91; Bilirubin,Total < 0.2 mg/dL (0.1-1.2); Blood Urea Nitrogen 31 mg/dL (7-17); Carbon Dioxide 20 mmol/L (22-30); Chloride 111.7 mmol/L (98-107); Glucose 88 mg/dL (65-100); Potassium 5.1 mmol/L (3.6-5.0); Sodium 148 mmol/L (137-145); Total Protein 6.7 g/dL (6.3-8.2)
--- NOTE | 2016-07-10 10:44 | Progress Note ---
Subjective - Reason for Consult Consult date: 07/10/16 Reason for consult: bipolar - Chief Complaint Chief complaint: "I'm good. 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 In the ED her blood pressure was high and she was on BP meds and she had UTI and was started on Bactrim. The patient said her daughter was incarcerated and had difficulty of getting her medications while she was at home. She asked for placement in detention ([facility]). She was admitted to the floor for the management of UTI and placement. Mental Status Exam - Vital signs Last Vital Signs Temp 98.0 F 07/10/16 08:35 Pulse 70 07/10/16 08:35 Resp 20 07/10/16 08:35 BP 193/81 07/10/16 08:35 Pulse Ox 100 07/10/16 08:35 - Exam Narrative exam: Alert and oriented x 4. Makes eye contact. Speech is impaired r/t no teeth. Mood is pleasant. Affect is congruent--smiling/full range. Her thought process remains tangential. Her content is not overtly delusional, but remains hyper- zoroastrian. She continues to deny any/all SI/HI and denies A/VH. she is not overtly responding to internal stimuli but she does break out into song and dance when asked. Her memory for recent events is intact, remote is poor. Insight and judgment shows some impairment. Orientation: time (June 2016), place, person Affect: other (happy) Mood: other (happy) Thought content: yarsanism Thought Process: Tangential Perceptions: none Speech: other (coherent, not clear) Concentration: distractible Motor activity: other (unable to do her own ADLs) Level of consciousness: alert Memory: Remote Impaired Sleep Symptoms: None Interaction: cooperative, pleasant Assessment and Plan ASSESSMENT 69yo F admitted with: UTI Bipolar Disorder Dementia Family informed staff they would not be able to care for her at home anymore as they were being evicted. - Patient Problems (1) Dementia Current Visit: No Status: Acute Qualifiers: Dementia behavioral disturbance: with behavioral disturbance Plan to address problem: RECOMMEND 1.Continue Zyprexa 10mg po HS 2. Zyprexa Zydis 5mg SL Q12H PRN agitation/psychosis 3. NH placement 4. Psych will follow
[2016-07-10] MEDS: NORMODYNE PO SCH ×2 (12:06→21:51)
[2016-07-10] MEDS: ROCEPHIN/NS 1 GM/50 ML 50 ML IV SCH (12:06)
[2016-07-10] MEDS: NEURONTIN PO SCH ×2 (12:07→21:51)
[2016-07-10] MEDS: NACL 0.9% 1000 ML 1,000 ML IV SCH (12:09)
--- NOTE | 2016-07-10 13:27 | Progress Note ---
Assessment and Plan Assessment and plan: Patient is a 70-year-old woman with a history of dementia, CKD 3-4, anemia of chronic disease, hypothyroidism, hypertension, type 2 diabetes mellitus, bipolar disorder and arthritis who presented on 06/30/2016 with mental health concerns per family. Patient did not go home. She remained in the ER until 11/2015, until it was decided that she needed placement. She needs 3 night inpatient hospital stay. 1. Urinary tract infection with acute encephalopathy, POA started on Bactrim by ED physician Dr. Iraheta. Urine culture was uncollected, Stop the Bactrim because of renal dysfunction, started iv rocephin 2. CKD stage IV: Monitor closely 3. Hypothyroidism, chronic and worsening 4. Hypertension, chronic and worsening: Adjust antihypertensive, Continue to monitor 5. DVT prophylaxis: SCDs, stop heparin due to the anemia 6. Acute on chronic anemia chronic disease: Monitor closely Full code Disposition: Continue inpatient care, for placement New issues: worsening Drop in hematocrit: repeat h/h, FOBT negative so no anemia most likely due to chronic disease Worsening renal function==>negrito/ckd most likely due to vasomotor nephropathy versus interstitial nephritis due to Bactrim versus other: Consulted nephrology- -> Now improving Elevated TSH: Increased Synthroid She has triggered a level 2 pre-authorization from the state worsening hypertension: iv hydralazine prn am labs\ New issue: Drop in hematocrit: Repeat H&H History Interval history: Patient seen and examined. Follow up on current diagnosis. Overnight uneventful. No cp, sob, n/v or severe headaches. Imaging, old records, testing, labs, nursing notes reviewed. Hospitalist Physical - Physical exam Narrative exam: GEN: WDWN, NAD, AWAKE, ALERT, ORIENTATED 2 CVS: RRR, NORMAL S1S2 LUNGS/CHEST: CTA B, NORMAL CHEST EXPANSION B, GOOD AIR ENTRY B ABD: SOFT NTND, GBS, NO REBOUND OR GUARDING EXT/SKIN: NO SIGNIFICANT EDEMA OR RASH MSK: FROM X 4 EXTREMITIES NEURO: CN 2-12 GROSSLY INTACT, NO NEW FOCAL DEFICITS PSY: CALM - Constitutional Vitals: Temp Pulse Resp BP Pulse Ox 98.0 F 76 20 173/76 100 07/10/16 08:35 07/10/16 12:06 07/10/16 08:35 07/10/16 12:06 07/10/16 08:35 General appearance: Present: no acute distress Results - Labs CBC & Chem 7: 07/10/16 06:43 07/10/16 06:43 Labs: Laboratory Last Values WBC 4.7 K/mm3 (4.5-11.0) 07/10/16 06:43 RBC 2.90 M/mm3 (3.65-5.03) L 07/10/16 06:43 Hgb 7.7 gm/dl (10.1-14.3) L 07/10/16 06:43 Hct 25.0 % (30.3-42.9) L 07/10/16 06:43 MCV 86 fl (79-97) 07/10/16 06:43 MCH 27 pg (28-32) L 07/10/16 06:43 MCHC 31 % (30-34) 07/10/16 06:43 RDW 17.0 % (13.2-15.2) H 07/10/16 06:43 Plt Count 197 K/mm3 (140-440) 07/10/16 06:43 Lymph % (Auto) 22.3 % (13.4-35.0) 07/10/16 06:43 [place] % (Auto) 10.4 % (0.0-7.3) H 07/10/16 06:43 Eos % (Auto) 4.1 % (0.0-4.3) 07/10/16 06:43 Baso % (Auto) 0.4 % (0.0-1.8) 07/10/16 06:43 Lymph # 1.1 K/mm3 (1.2-5.4) L 07/10/16 06:43 [place] # 0.5 K/mm3 (0.0-0.8) 07/10/16 06:43 Eos # 0.2 K/mm3 (0.0-0.4) 07/10/16 06:43 Baso # 0.0 K/mm3 (0.0-0.1) 07/10/16 06:43 Seg Neutrophils % 62.8 % (40.0-70.0) 07/10/16 06:43 Seg Neutrophils # 3.0 K/mm3 (1.8-7.7) 07/10/16 06:43 Sodium 148 mmol/L (137-145) H 07/10/16 06:43 Potassium 5.1 mmol/L (3.6-5.0) H 07/10/16 06:43 Chloride 111.7 mmol/L (98-107) H 07/10/16 06:43 Carbon Dioxide 20 mmol/L (22-30) L 07/10/16 06:43 Anion Gap 21 mmol/L 07/10/16 06:43 BUN 31 mg/dL (7-17) H 07/10/16 06:43 Creatinine 2.4 mg/dL (0.7-1.2) H 07/10/16 06:43 Estimated GFR 24 ml/min 07/10/16 06:43 BUN/Creatinine Ratio 12.91 % 07/10/16 06:43 Glucose 88 mg/dL (65-100) 07/10/16 06:43 POC Glucose 95 (70-105) 07/10/16 11:49 Calcium 8.0 mg/dL (8.4-10.2) L 07/10/16 06:43 Total Bilirubin < 0.2 mg/dL (0.1-1.2) 07/10/16 06:43 AST 17 units/L (5-40) 07/10/16 06:43 ALT 9 units/L (7-56) 07/10/16 06:43 Alkaline Phosphatase 62 units/L (35-129) 07/10/16 06:43 Total Protein 6.7 g/dL (6.3-8.2) 07/10/16 06:43 Albumin 3.5 g/dL (3.9-5) L 07/10/16 06:43 Albumin/Globulin Ratio 1.1 % 07/10/16 06:43 TSH 8.090 mlU/mL (0.270-4.200) H 07/05/16 05:08 Urine Color Straw (Yellow) 07/06/16 01:18 Urine Turbidity Clear (Clear) 07/06/16 01:18 Urine pH 6.0 (5.0-7.0) 07/06/16 01:18 Ur Specific [place] 1.003 (1.003-1.030) 07/06/16 01:18 Urine Protein <15 mg/dl mg/dL (Negative) 07/06/16 01:18 Urine Glucose (UA) Neg mg/dL (Negative) 07/06/16 01:18 Urine Ketones Neg mg/dL (Negative) 07/06/16 01:18 Urine Blood Neg (Negative) 07/06/16 01:18 Urine Nitrite Neg (Negative) 07/06/16 01:18 Urine Bilirubin Neg (Negative) 07/06/16 01:18 Urine Urobilinogen < 2.0 mg/dL (<2.0) 07/06/16 01:18 Ur Leukocyte Esterase Mod (Negative) 07/06/16 01:18 Urine WBC (Auto) 7.0 /HPF (0.0-6.0) H 07/06/16 01:18 Urine RBC (Auto) 3.0 /HPF (0.0-6.0) 07/06/16 01:18 U Epithel Cells (Auto) 1.0 /HPF (0-13.0) 06/30/16 11:34 Urine Bacteria (Auto) 1+ /HPF (Negative) 06/30/16 11:34 Urine Eosinophils None seen (None Seen) 07/06/16 01:18 Urine Creatinine 36.6 mg/dL (0.1-20.0) H 07/06/16 01:18 Urine Microalbumin 6.5 mg/dL (0.1-34.0) 07/06/16 01:18 Microalb/Creat Ratio 177.5 ug/mg 07/06/16 01:18 Urine Sodium 28 mEq/L 07/06/16 01:18 Urine Opiates Screen Presumptive negative 06/30/16 11:34 Urine Methadone Screen Presumptive negative 06/30/16 11:34 Acetaminophen < 15.0 ug/mL (10.0-30.0) 06/30/16 12:01 Ur Barbiturates Screen Presumptive negative 06/30/16 11:34 Ur Phencyclidine Scrn Presumptive negative 06/30/16 11:34 Ur Amphetamines Screen Presumptive negative 06/30/16 11:34 U Benzodiazepines Scrn Presumptive negative 06/30/16 11:34 Urine Cocaine Screen Presumptive negative 06/30/16 11:34 U Marijuana (THC) Screen Presumptive negative 06/30/16 11:34 Drugs of Abuse Note Disclamer 06/30/16 11:34 Plasma/Serum Alcohol < 0.01 gm% (0-0.07) 06/30/16 12:01
[2016-07-10 15:17] LABS: Hematocrit 25.5 % (30.3-42.9); Hemoglobin 7.9 gm/dl (10.1-14.3)
[2016-07-11] MEDS: SYNTHROID PO SCH (05:30)
--- NOTE | 2016-07-11 06:22 | Cat Scan Report ---
FINAL REPORT PROCEDURE: CT HEAD/BRAIN WO CON TECHNIQUE: Computerized tomography of the head was performed without contrast material. HISTORY: decreased loc COMPARISON: No prior studies are available for comparison. FINDINGS: Skull and scalp: Normal. Paranasal sinuses: Normal. Ventricles and subarachnoid spaces: Normal. Cerebrum: There is no evidence of acute intracranial hemorrhage, hematoma, infarction, midline displacement or mass. Mild atrophy and periventricular deep white matter changes are noted. There are benign calcifications in both basal ganglia.. Cerebellum and brainstem: No evidence of hemorrhage, acute infarction or mass. Vasculature: Normal. Comments: None. IMPRESSION: There is no evidence of an acute intracranial process. Mild atrophy and periventricular deep white matter changes are noted.
--- NOTE | 2016-07-11 06:42 | Event Note ---
Date: 07/11/16 called to see patient, she was unresponsive, no narcotics given Fingersticks was less than 20, D50 was given 2 without any significant improvement We'll obtain CAT scan of the head Patient's tongue is protruding, swollen. Nurse reports this is new. Upon transfer to ICU, there was more protrusion Will intuate, give steroids, benadryl and pepcid now Critical care 35 minutes
[2016-07-11] MEDS ORDERED: BENADRYL IV PRN (06:46)
[2016-07-11] MEDS ORDERED: BENADRYL IV ONE (06:46)
[2016-07-11] MEDS ORDERED: PEPCID IV SCH (06:46)
[2016-07-11] MEDS ORDERED: VERSED ONE (06:53)
[2016-07-11] MEDS ORDERED: VERSED IV ONE (07:07)
[2016-07-11] MEDS: NACL 0.9% 1000 ML 1,000 ML IV SCH (07:38)
[2016-07-11] MEDS ORDERED: ARTIFICIAL TEARS OPHTH OINT OU PRN (07:57)
[2016-07-11] MEDS ORDERED: VASELINE LIP THERAPY TP PRN (07:57)
[2016-07-11] MEDS ORDERED: VERSED/NS 100MG/100ML 100 ML IV SCH (08:00)
[2016-07-11] MEDS: D50W (25GM) IV PRN ×2 (08:11→10:02)
[2016-07-11] MEDS: APRESOLINE IV PRN ×3 (08:12→12:11)
--- NOTE | 2016-07-11 08:12 | XRay Report ---
AP CHEST :07/11/16 07:28 CLINICAL: Post intubation. COMPARISON:None. FINDINGS: An endotracheal tube is in satisfactory position. Normal heart and pulmonary vessels. The lungs are normally expanded and clear. No pneumothorax. IMPRESSION: Satisfactory position of the endotracheal tube.No CHF or pneumonia.
--- NOTE | 2016-07-11 08:49 | Progress Note ---
Assessment and Plan Assessment and plan: 1. Acute hypoxic respiratory failure. Patient is currently intubated on mechanical ventilation. Continue vent management per pulmonary. Consider extubation today 2. ? Angioedema. Continue Pepcid, Benadryl and steroids. 3. Urinary tract infection. Klebsiella. Treated. D/C IV Rocephin. 4. Acute on CKD stage IV. Etiology likely secondary to vasomotor nephropathy versus interstitial nephritis from initial treatment with Bactrim for UTI. Nephrology following. Follow-up BMP. 5. Hypoglycemia. Continue D5 normal saline. Monitor blood glucose closely. 6. Toxic metabolic encephalopathy. Continue to treat underlying causes. 7. Hypothyroidism, chronic and worsening. Continue Synthroid. 8. Hypertension, chronic. Continue antihypertensive medications and monitor. Hydralazine when necessary 9. DVT prophylaxis: SCDs, start lovenox daily 10. Acute on chronic anemia chronic disease: Monitor closely The high probability of a clinically significant, sudden or life threatening deterioration of the [respiratory] system(s) required my full and direct attention, intervention and personal management. The aggregate critical care time was [31] minutes. This time is in addition to time spent performing reported procedures but includes the following: [x] Data Review and interpretation [x] Patient assessment and monitoring of vital signs [x] Documentation [x] Medication orders and management History Interval history: Patient is a 70-year-old woman with a history of dementia, CKD 3-4, anemia of chronic disease, hypothyroidism, hypertension, type 2 diabetes mellitus, bipolar disorder and arthritis who presented on 06/30/2016 with mental health concerns per family. Patient did not go home. She remained in the ER until 11/2015, until it was decided that she needed placement. Patient was noted to be unresponsive earlier this morning (07/11/16). Patient also had angioedema and required intubation. Patient currently intubated on mechanical ventilation. Hospitalist Physical - Constitutional Vitals: Temp Pulse Resp BP Pulse Ox 97.2 F L 92 H 20 200/98 100 07/11/16 07:57 07/11/16 08:12 07/10/16 23:38 07/11/16 08:12 07/11/16 07:12 General appearance: Present: mild distress - EENT Eyes: Present: PERRL, EOM intact ENT: hearing intact, clear oral mucosa, dentition normal - Neck Neck: Present: supple, normal ROM - Respiratory Respiratory effort: normal Respiratory: bilateral: diminished, wheezing - Cardiovascular Rhythm: regular Heart Sounds: Present: S1 & S2. Absent: gallop, rub - Extremities Extremities: no ischemia, No edema, Full ROM - Abdominal General gastrointestinal: soft, non-tender, non-distended, normal bowel sounds - Integumentary Integumentary: Present: clear, warm, dry - Neurologic Neurologic: CNII-XII intact, moves all extremities Results - Labs CBC & Chem 7: 07/10/16 14:55 07/10/16 06:43 Labs: Laboratory Last Values WBC 4.7 K/mm3 (4.5-11.0) 07/10/16 06:43 RBC 2.90 M/mm3 (3.65-5.03) L 07/10/16 06:43 Hgb 7.9 gm/dl (10.1-14.3) L 07/10/16 14:55 Hct 25.5 % (30.3-42.9) L 07/10/16 14:55 MCV 86 fl (79-97) 07/10/16 06:43 MCH 27 pg (28-32) L 07/10/16 06:43 MCHC 31 % (30-34) 07/10/16 06:43 RDW 17.0 % (13.2-15.2) H 07/10/16 06:43 Plt Count 197 K/mm3 (140-440) 07/10/16 06:43 Lymph % (Auto) 22.3 % (13.4-35.0) 07/10/16 06:43 [place] % (Auto) 10.4 % (0.0-7.3) H 07/10/16 06:43 Eos % (Auto) 4.1 % (0.0-4.3) 07/10/16 06:43 Baso % (Auto) 0.4 % (0.0-1.8) 07/10/16 06:43 Lymph # 1.1 K/mm3 (1.2-5.4) L 07/10/16 06:43 [place] # 0.5 K/mm3 (0.0-0.8) 07/10/16 06:43 Eos # 0.2 K/mm3 (0.0-0.4) 07/10/16 06:43 Baso # 0.0 K/mm3 (0.0-0.1) 07/10/16 06:43 Seg Neutrophils % 62.8 % (40.0-70.0) 07/10/16 06:43 Seg Neutrophils # 3.0 K/mm3 (1.8-7.7) 07/10/16 06:43 Sodium 148 mmol/L (137-145) H 07/10/16 06:43 Potassium 5.1 mmol/L (3.6-5.0) H 07/10/16 06:43 Chloride 111.7 mmol/L (98-107) H 07/10/16 06:43 Carbon Dioxide 20 mmol/L (22-30) L 07/10/16 06:43 Anion Gap 21 mmol/L 07/10/16 06:43 BUN 31 mg/dL (7-17) H 07/10/16 06:43 Creatinine 2.4 mg/dL (0.7-1.2) H 07/10/16 06:43 Estimated GFR 24 ml/min 07/10/16 06:43 BUN/Creatinine Ratio 12.91 % 07/10/16 06:43 Glucose 88 mg/dL (65-100) 07/10/16 06:43 POC Glucose 56 (70-105) L 07/11/16 07:42 Calcium 8.0 mg/dL (8.4-10.2) L 07/10/16 06:43 Total Bilirubin < 0.2 mg/dL (0.1-1.2) 07/10/16 06:43 AST 17 units/L (5-40) 07/10/16 06:43 ALT 9 units/L (7-56) 07/10/16 06:43 Alkaline Phosphatase 62 units/L (35-129) 07/10/16 06:43 Total Protein 6.7 g/dL (6.3-8.2) 07/10/16 06:43 Albumin 3.5 g/dL (3.9-5) L 07/10/16 06:43 Albumin/Globulin Ratio 1.1 % 07/10/16 06:43 TSH 8.090 mlU/mL (0.270-4.200) H 07/05/16 05:08 Urine Color Straw (Yellow) 07/06/16 01:18 Urine Turbidity Clear (Clear) 07/06/16 01:18 Urine pH 6.0 (5.0-7.0) 07/06/16 01:18 Ur Specific [place] 1.003 (1.003-1.030) 07/06/16 01:18 Urine Protein <15 mg/dl mg/dL (Negative) 07/06/16 01:18 Urine Glucose (UA) Neg mg/dL (Negative) 07/06/16 01:18 Urine Ketones Neg mg/dL (Negative) 07/06/16 01:18 Urine Blood Neg (Negative) 07/06/16 01:18 Urine Nitrite Neg (Negative) 07/06/16 01:18 Urine Bilirubin Neg (Negative) 07/06/16 01:18 Urine Urobilinogen < 2.0 mg/dL (<2.0) 07/06/16 01:18 Ur Leukocyte Esterase Mod (Negative) 07/06/16 01:18 Urine WBC (Auto) 7.0 /HPF (0.0-6.0) H 07/06/16 01:18 Urine RBC (Auto) 3.0 /HPF (0.0-6.0) 07/06/16 01:18 U Epithel Cells (Auto) 1.0 /HPF (0-13.0) 06/30/16 11:34 Urine Bacteria (Auto) 1+ /HPF (Negative) 06/30/16 11:34 Urine Eosinophils None seen (None Seen) 07/06/16 01:18 Urine Creatinine 36.6 mg/dL (0.1-20.0) H 07/06/16 01:18 Urine Microalbumin 6.5 mg/dL (0.1-34.0) 07/06/16 01:18 Microalb/Creat Ratio 177.5 ug/mg 07/06/16 01:18 Urine Sodium 28 mEq/L 07/06/16 01:18 Urine Opiates Screen Presumptive negative 06/30/16 11:34 Urine Methadone Screen Presumptive negative 06/30/16 11:34 Acetaminophen < 15.0 ug/mL (10.0-30.0) 06/30/16 12:01 Ur Barbiturates Screen Presumptive negative 06/30/16 11:34 Ur Phencyclidine Scrn Presumptive negative 06/30/16 11:34 Ur Amphetamines Screen Presumptive negative 06/30/16 11:34 U Benzodiazepines Scrn Presumptive negative 06/30/16 11:34 Urine Cocaine Screen Presumptive negative 06/30/16 11:34 U Marijuana (THC) Screen Presumptive negative 06/30/16 11:34 Drugs of Abuse Note Disclamer 06/30/16 11:34 Plasma/Serum Alcohol < 0.01 gm% (0-0.07) 06/30/16 12:01
[2016-07-11 09:08] LABS: ISTAT Base Excess -4; ISTAT HCO3 20.2; ISTAT PCO2 31.1 (35-45); ISTAT PH 7.422 (7.35-7.45); ISTAT PO2 108 (80-105); ISTAT SO2 98; ISTAT TCO2 21
[2016-07-11] MEDS: ROCEPHIN/NS 1 GM/50 ML 50 ML IV SCH (09:45)
[2016-07-11] MEDS: PEPCID IV SCH (09:45)
--- NOTE | 2016-07-11 10:21 | XRay Report ---
AP ABDOMEN HISTORY: Dobbhoff tube placement. FINDINGS: The Dobbhoff tube is coiled in the fundus of the stomach. The gastric cavity is mildly distended with gas. Otherwise the bowel gas pattern is within normal limits. Cholecystectomy changes are noted. The lung bases are clear. IMPRESSION: The Dobbhoff tube is coiled in the fundus of the stomach.
--- NOTE | 2016-07-11 10:42 | Consultation ---
History of Present Illness Consult date: 07/11/16 Requesting physician: MARLA ACEVES Reason for consult: other (Acute Respiratory Failure) History of present illness: PULMONARY CONSULT NOTE (Full dictation # [id number]) Please see dictated notes for full details Past History Past Medical History: diabetes, hypertension, renal failure, other (Bipolar, dementia) Past Surgical History: Other (left breast surgery) Social history: lives with family, full code. denies: smoking, alcohol abuse, prescription drug abuse, IV drug use Family history: no significant family history, other (Non contributary at this age.) Medications and Allergies Allergies Allergy/AdvReac Type Severity Reaction Status Date / Time No Known Allergies Allergy Unverified 05/12/13 12:21 Home Medications Medication Instructions Recorded Confirmed Last Taken Type Insulin Aspart Prot/Aspart 45 units SUB-Q QHS 05/12/13 07/02/16 06/14/13 21:00 History [NovoLOG Mix 70/30 VIAL] Olanzapine 10 mg PO HS 06/12/13 07/02/16 06/15/13 20:00 History Insulin Regular, Human [HumuLIN R] 0 units SUB-Q ACHS units 02/08/15 07/02/16 Unknown Rx Labetalol [Normodyne TAB] 200 mg PO BID tablet 02/08/15 07/02/16 Unknown Rx NIFEdipine XL [Procardia Xl] 30 mg PO Q12HR #30 tablet 06/30/16 Unknown Rx hydrALAZINE [Apresoline TAB] 50 mg PO Q8HR #30 tablet 06/30/16 Unknown Rx Gabapentin [Neurontin] 100 mg PO BID 07/02/16 07/02/16 Unknown History Levothyroxine [Synthroid] 100 mcg PO DAILY@0600 07/02/16 07/02/16 Unknown History Sulfamethoxazole/Trimethoprim 1 each PO BID #20 tablet 07/02/16 Unknown Rx [Bactrim DS TAB] Active Meds: Active Medications Dextrose (D50w (25gm)) 50 ml IV PRN PRN PRN Reason: Hypoglycemia Last Admin: 07/11/16 10:02 Dose: 50 ml Diphenhydramine HCl (Benadryl) 25 mg IV Q6H PRN PRN Reason: Itching Famotidine (Pepcid) 20 mg IV DAILY RACHEL Last Admin: 07/11/16 09:45 Dose: 20 mg Gabapentin (Neurontin) 100 mg PO BID [facility] Last Admin: 07/10/16 21:51 Dose: 100 mg Hydralazine HCl (Apresoline) 10 mg IV Q4HR PRN PRN Reason: Blood Pressure Last Admin: 07/11/16 08:12 Dose: 10 mg Hydrophilic Ointment (Vaseline Lip Therapy) 1 applic TP Q2HR PRN PRN Reason: Dry Lips Ceftriaxone Sodium (Rocephin/Ns 1 Gm/50 Ml) 50 mls @ 100 mls/hr IV Q24HR RACHEL PRN Reason: Protocol Last Admin: 07/11/16 09:45 Dose: 100 mls/hr Midazolam HCl (Versed/Ns 100mg/100ml) 100 mls @ 2 mls/hr IV TITR RACHEL; 2 MG/HR PRN Reason: Protocol Dextrose/Sodium Chloride (D5ns) 1,000 mls @ 75 mls/hr IV DIRECT RACHEL Insulin Aspart (Novolog) 0 units SUB-Q ACHS RACHEL PRN Reason: Protocol Last Admin: 07/10/16 21:54 Dose: Not Given Insulin Human Isoph/Insulin Regular (Novolin 70/30) 45 unit SUB-Q QHS [facility] Last Admin: 07/10/16 21:56 Dose: 45 unit Labetalol HCl (Normodyne) 200 mg PO BID [facility] Last Admin: 07/10/16 21:51 Dose: 200 mg Levothyroxine Sodium (Synthroid) 150 mcg PO DAILY@0600 [facility] Last Admin: 07/11/16 05:30 Dose: 150 mcg Methylprednisolone Sodium Succinate (Solu-Medrol) 125 mg IV Q6HR [facility] Last Admin: 07/11/16 08:12 Dose: 125 mg Multi-Ingred Cream/Lotion/Oil/Oint (Artificial Tears Ophth Oint) 1 applic OU Q4HR PRN PRN Reason: Dry Eye(s) Olanzapine (Zyprexa) 10 mg PO HS [facility] Last Admin: 07/10/16 21:51 Dose: 10 mg Physical Examination Vital signs: Vital Signs Temp Pulse Resp BP Pulse Ox 98.6 F 62 20 207/185 100 06/30/16 10:52 06/30/16 10:52 06/30/16 10:52 06/30/16 10:52 06/30/16 10:52 Results - Laboratory Findings CBC and BMP: 07/10/16 14:55 07/10/16 06:43 ABG POC ABG pH 7.422 (7.35-7.45) 07/11/16 08:50 POC ABG pCO2 31.1 (35-45) L 07/11/16 08:50 POC ABG pO2 108 (80-105) H 07/11/16 08:50 POC ABG HCO3 20.2 07/11/16 08:50 POC ABG Total CO2 21 07/11/16 08:50 POC ABG O2 Sat 98 07/11/16 08:50 Abnormal lab findings: Abnormal Labs 07/03/16 07/03/16 07/04/16 14:34 14:34 06:21 WBC 3.9 L RBC 3.16 L 3.04 L Hgb 8.5 L 8.0 L Hct 26.8 L 25.6 L MCH 27 L 26 L RDW 16.5 H 16.2 H [place] % (Auto) 10.7 H 10.7 H Lymph # 1.0 L POC ABG pCO2 POC ABG pO2 Sodium Potassium Chloride 107.6 H Carbon Dioxide BUN 27 H Creatinine 2.6 H Glucose POC Glucose Calcium 8.0 L Albumin TSH Urine WBC (Auto) Urine Creatinine 07/04/16 07/04/16 07/04/16 06:21 11:30 16:33 WBC RBC Hgb Hct MCH RDW [place] % (Auto) Lymph # POC ABG pCO2 POC ABG pO2 Sodium Potassium Chloride 107.4 H Carbon Dioxide 21 L BUN 27 H Creatinine 2.7 H Glucose POC Glucose 110 H 106 H Calcium 7.8 L Albumin TSH Urine WBC (Auto) Urine Creatinine 07/05/16 07/05/16 07/05/16 05:08 05:08 05:08 WBC 4.0 L RBC 2.87 L Hgb 7.7 L Hct 24.2 L MCH 27 L RDW 16.0 H [place] % (Auto) Lymph # POC ABG pCO2 POC ABG pO2 Sodium Potassium Chloride Carbon Dioxide 21 L BUN 32 H Creatinine 3.7 H Glucose POC Glucose Calcium 7.8 L Albumin TSH 8.090 H Urine WBC (Auto) Urine Creatinine 07/05/16 07/06/16 07/06/16 11:45 01:18 01:18 WBC RBC Hgb 8.3 L Hct 25.9 L MCH RDW [place] % (Auto) Lymph # POC ABG pCO2 POC ABG pO2 Sodium Potassium Chloride Carbon Dioxide BUN Creatinine Glucose POC Glucose Calcium Albumin TSH Urine WBC (Auto) 7.0 H Urine Creatinine 36.6 H 07/06/16 07/06/16 07/06/16 05:55 05:55 16:07 WBC 3.0 L RBC 2.79 L Hgb 7.5 L Hct 23.5 L MCH 27 L RDW 16.5 H [place] % (Auto) Lymph # POC ABG pCO2 POC ABG pO2 Sodium Potassium Chloride 109.3 H Carbon Dioxide 20 L BUN 32 H Creatinine 3.4 H Glucose POC Glucose 117 H Calcium 7.5 L Albumin TSH Urine WBC (Auto) Urine Creatinine 07/07/16 07/07/16 07/08/16 06:19 16:13 00:09 WBC RBC Hgb Hct MCH RDW [place] % (Auto) Lymph # POC ABG pCO2 POC ABG pO2 Sodium Potassium Chloride 111.1 H Carbon Dioxide 20 L BUN 31 H Creatinine 3.1 H Glucose POC Glucose 108 H 134 H Calcium 8.0 L Albumin TSH Urine WBC (Auto) Urine Creatinine 07/08/16 07/08/16 07/08/16 11:39 16:31 21:22 WBC RBC Hgb Hct MCH RDW [place] % (Auto) Lymph # POC ABG pCO2 POC ABG pO2 Sodium Potassium Chloride Carbon Dioxide BUN Creatinine Glucose POC Glucose 119 H 130 H 152 H Calcium Albumin TSH Urine WBC (Auto) Urine Creatinine 07/09/16 07/09/16 07/09/16 05:52 05:52 06:02 WBC RBC 3.55 L Hgb 9.4 L Hct MCH 27 L RDW 17.1 H [place] % (Auto) Lymph # POC ABG pCO2 POC ABG pO2 Sodium 147 H Potassium 5.4 H Chloride 112.8 H Carbon Dioxide 21 L BUN 30 H Creatinine 2.5 H Glucose 21 L* POC Glucose < 40 L Calcium Albumin TSH Urine WBC (Auto) Urine Creatinine 07/09/16 07/09/16 07/10/16 11:31 16:50 05:23 WBC RBC Hgb Hct MCH RDW [place] % (Auto) Lymph # POC ABG pCO2 POC ABG pO2 Sodium Potassium Chloride Carbon Dioxide BUN Creatinine Glucose POC Glucose 114 H 149 H < 40 L Calcium Albumin TSH Urine WBC (Auto) Urine Creatinine 07/10/16 07/10/16 07/10/16 06:03 06:43 06:43 WBC RBC 2.90 L Hgb 7.7 L Hct 25.0 L MCH 27 L RDW 17.0 H [place] % (Auto) 10.4 H Lymph # 1.1 L POC ABG pCO2 POC ABG pO2 Sodium 148 H Potassium 5.1 H Chloride 111.7 H Carbon Dioxide 20 L BUN 31 H Creatinine 2.4 H Glucose POC Glucose 211 H Calcium 8.0 L Albumin 3.5 L TSH Urine WBC (Auto) Urine Creatinine 07/10/16 07/11/16 07/11/16 14:55 05:37 05:47 WBC RBC Hgb 7.9 L Hct 25.5 L MCH RDW [place] % (Auto) Lymph # POC ABG pCO2 POC ABG pO2 Sodium Potassium Chloride Carbon Dioxide BUN Creatinine Glucose POC Glucose < 40 L > 500 H Calcium Albumin TSH Urine WBC (Auto) Urine Creatinine 07/11/16 07/11/16 07/11/16 05:56 07:42 08:50 WBC RBC Hgb Hct MCH RDW [place] % (Auto) Lymph # POC ABG pCO2 31.1 L POC ABG pO2 108 H Sodium Potassium Chloride Carbon Dioxide BUN Creatinine Glucose POC Glucose 262 H 56 L Calcium Albumin TSH Urine WBC (Auto) Urine Creatinine
[2016-07-11] MEDS ORDERED: D5NS 1,000 ML IV SCH (11:00)
[2016-07-11] MEDS: NORMODYNE PO SCH ×2 (11:45→21:51)
[2016-07-11] MEDS: NEURONTIN PO SCH ×2 (11:46→21:51)
[2016-07-11 12:36] LABS: ISTAT Base Excess -5; ISTAT HCO3 19.4; ISTAT PCO2 28.4 (35-45); ISTAT PH 7.443 (7.35-7.45); ISTAT PO2 98 (80-105); ISTAT SO2 98; ISTAT TCO2 20
[2016-07-11 12:55] LABS: Mean Corpuscular Hemoglobin 27 pg (28-32)
[2016-07-11 12:59] LABS: Eosinophils % (Auto) 0.1 % (0.0-4.3); Hematocrit 32.5 % (30.3-42.9); Hemoglobin 10.1 gm/dl (10.1-14.3); Mean Corpuscular HGB Conc 31 % (30-34); Mean Corpuscular Volume 87 fl (79-97); Platelet Count 255 K/mm3 (140-440); Red Blood Count 3.75 M/mm3 (3.65-5.03); Red Cell Distribution Width 17.2 % (13.2-15.2); White Blood Count 11.6 K/mm3 (4.5-11.0)
[2016-07-11 13:01] LABS: Magnesium 1.9 mg/dL (1.7-2.3); Phosphorous 2.8 mg/dL (2.5-4.5)
[2016-07-11 13:05] LABS: Anion Gap 24 mmol/L; BUN/Creatinine Ratio 14.28; Blood Urea Nitrogen 30 mg/dL (7-17); Calcium 9.1 mg/dL (8.4-10.2); Carbon Dioxide 18 mmol/L (22-30); Chloride 109.4 mmol/L (98-107); Creatine Kinase 131 units/L (30-135); Glucose 126 mg/dL (65-100); Sodium 145 mmol/L (137-145)
[2016-07-11 13:12] LABS: Potassium 6.1 mmol/L (3.6-5.0)
[2016-07-11] MEDS ORDERED: D50W (25GM) IV ONE ×2 (13:27→14:00)
[2016-07-11 13:42] LABS: Basophils % (Manual) 0 % (0.0-1.8); Blastocytes % (Manual) 0 %; Eosinophils % (Manual) 0 % (0.0-4.3)
[2016-07-11 13:43] LABS: Anisocytosis 1+; Elliptocytes 1+; Ovalocytes 1+; Poikilocytosis 1+; Tear Drop Cells 1+
[2016-07-11 13:44] LABS: Burr Cells Few; Diff Status Complete
[2016-07-11] MEDS ORDERED: KAYEXALATE PO ONE (14:00)
[2016-07-11] MEDS: HEPARIN SUB-Q SCH ×2 (15:13→21:51)
[2016-07-11] MEDS: APRESOLINE IV SCH ×3 (15:15→21:45)
[2016-07-11] MEDS: APRESOLINE FEEDTUBE SCH ×2 (15:16→21:51)
[2016-07-11] MEDS ORDERED: SIMPLE SYRUP FEEDTUBE PRN ×2 (15:59)
[2016-07-11] MEDS ORDERED: SODIUM BICARBONATE FEEDTUBE PRN (15:59)
[2016-07-11] MEDS ORDERED: PANCREAZE DR 10,500 UNIT FEEDTUBE PRN (15:59)
[2016-07-11 18:04] LABS: BUN/Creatinine Ratio 13.33; Calcium 8.7 mg/dL (8.4-10.2); Chloride 109.7 mmol/L (98-107)
[2016-07-11] MEDS: NOVOLOG SUB-Q SCH ×2 (18:08→21:43)
[2016-07-11 18:10] LABS: Potassium 6.5 mmol/L (3.6-5.0)
--- NOTE | 2016-07-11 22:14 | Consultation ---
CONSULTING PHYSICIAN: Yuriy Escobar MD REASON FOR CONSULTATION: Acute respiratory failure, altered mental status, possible angioedema. CHIEF COMPLAINT AND HISTORY OF PRESENT ILLNESS: The patient is a 70-year-old -Martiniquais female who presented to the Emergency Room on the 2nd of this month complaining of bipolar disorder and hypertension. I should mention that her daughter who administers her medications had been incarcerated. She had been 4-5 days. The daughter called the emergency medical services on the day of admission because she had felt like her mother's bipolar disorder was acting out. She reportedly had been walking around at night. The patient denied suicidal or homicidal ideation. She was admitted to the medical floor, in particular asking for placement in a halfway. She was diagnosed with the UTI, was admitted to the medical floor for management of the same. Earlier today, rapid response was called on the patient. The examining physician found her unresponsive. Fingerstick glucose was less than 20. Her tongue was protruded, swollen. The nurse reported that was new in admission to the intensive care unit, it seems like she was developing overt angioedema. She was intubated, started on steroids and we were consulted. When I stopped by to see her, she was really out of it. In terms of mental status, she was not responding to prompts. She was not on any sedation at that time. She had a size 7.[address], taped at the lips, I think around 22 cm. I do not have any history of vomiting or overt aspiration. The patient's tobacco use/abuse history is unknown to me. That is as much of the history of presentation as I have. PAST MEDICAL HISTORY: Again, significant for hypertension, diabetes, chronic kidney disease, arthritis, bipolar disorder, dementia, and sciatica. PAST SURGICAL HISTORY: She has had a left mastectomy. She has had a hysterectomy and knee replacement. MEDICATIONS: She was on at the time I stopped by to see her, according to the medication administration record, included the following: She was on dextrose NS drip at 75 mL per hour, Benadryl 25 mg IV q. 6 hours p.r.n. itching, Pepcid 20 mg IV daily scheduled, Neurontin 100 mg p.o. b.i.d. scheduled, heparin 5000 units subcutaneous q. 8 hours, hydralazine 10 mg IV q. 4 hours p.r.n. elevated blood pressure, insulin via sliding scale, labetalol 200 mg p.o. b.i.d., insulin 70/30, 45 units subcutaneous at bedtime, Levoxyl 150 mcg p.o. daily, Solu-Medrol 125 mg IV q. 6 hours, and Zyprexa 10 mg p.o. at bedtime. She had been on Rocephin earlier that seems like that one dose was given today earlier. ALLERGIES: No known drug allergies. DIET: Slightly obese lady, acute weight loss or gain history is unknown. FAMILY AND SOCIAL HISTORY: Lived in the community, apparently with her daughter prior to daughter been incarcerated. Alcohol, tobacco, illicit drug use or abuse history are unknown. REVIEW OF SYSTEMS: Unobtainable secondary to the patient's medical and mental status. Since she has been here, no gross hematochezia or melena, no gross hematuria, no witnessed seizures, no hematemesis. PHYSICAL EXAMINATION: VITAL SIGNS: At presentation, she was afebrile, temperature 98.6, pulse was 62, respiratory rate was 20, blood pressure was 207/185, oxygen sats were 100%, inspired oxygen concentration was not recorded. She has remained mostly afebrile through the admission. Most recent temperature was 97.2, blood pressure 183/73. HEENT: Pupils are equal, round, reactive to light, about 3 mm. Extraocular muscle movements could not be assessed. Endotracheal tube is in place, taped at the lips. NECK: No palpable lymph nodes grossly in the supraclavicular or submandibular lymph node chains. No gross jugular venous distention. LUNGS: Clear to auscultation bilaterally. HEART: Heart sounds 1 and 2 are heard. There were regular rate and rhythm at the time of my evaluation. ABDOMEN: Soft, full, bowel sounds are positive, nontender. EXTREMITIES: Without overt digital clubbing, cyanosis, or pedal edema. NEUROLOGIC: The exam is grossly nonfocal. LABORATORY DATA: From my review are as follows: Admission labs: White cell count was 4200 on admission with a hemoglobin of 8.4, hematocrit of 26.5, platelets 258. Serum sodium was 144, potassium was 4.2, chloride was 107, bicarbonate was 19, BUN was 28, creatinine was 2.4, glucose was 87. Urinalysis on admission showed large leukocyte esterase, 76 white cells per high power field. Urine drug screen was negative at presentation, most recent. Her white count has been low throughout this admission, it seems like. The most recent white count is from yesterday was 4700, hemoglobin was 7.7. Glucose is 56 most recent check. Arterial blood gas today showed a pH of 7.42, pCO2 of 31, pO2 of 108 that was on room air. Chest x-ray has been reviewed. I have also reviewed the radiologist's interpretation, and I will agree with him taking the rotation into consideration it is essentially normal for the chest x-ray, no gross pneumothorax, no gross bony fracture, ET tube tip at the level of the aortic knob. ASSESSMENT AND PLAN: I should mention that I have evaluated her. I do not see overt swelling of her tongue in this lady or overt angioedema. From a respiratory standpoint, we will begin weaning trials right away. We will wean via the pressure support mode of ventilation. I will evaluate for a good cuff leak. If she meets criteria, she will be extubated. Bronchodilators will be ordered on a p.r.n. basis. Aspiration precautions and ventilator bundles will be instituted and we will see how she does. From a cardiovascular standpoint, blood pressure medications will need to be up titrated. If her blood pressure remains elevated significantly, she will be started on a Cardene drip, but I do think we can get by with her p.r.n. hydralazine, which are probably scheduled in the short time with instructions to hold for systolics greater than 170. Otherwise, we will follow her clinically. I should mention that we will get at least one set of cardiac enzymes to ensure we are not dealing with an acute coronary syndrome as the cause of her decompensation. From a GI and nutritional standpoint if she meets weaning criteria, the plan will be for oral nutrition otherwise enteral nutrition will be started, and she is on GI prophylaxis that has just been started and we will follow her clinically. From a renal standpoint, no major electrolyte abnormalities. Yesterday, she did have and she has the azotemia, for which I believe Nephrology is seeing her. It does not look like she has made a whole lot of urine since she has been in the hospital, at least that has not been counted but she actually has been incontinent, so she is having urine in her diapers. We will order electrolytes this morning as well as a CBC and make sure we are not missing anything else that may have caused her to decompensate acutely. Inputs and outputs will be followed. Electrolytes will be corrected as necessary. From an infectious disease standpoint, no signs and symptoms of overwhelming sepsis at this time. No acute indication for anti-infective therapy. She will be followed clinically. From a STATE COMPTROLLER standpoint, it is not clear if this is her baseline mental status, I think actually she has had a CT of the head done and that is appropriate. It was read as no acute process and we will follow her clinically, hold off on any sedation and see if she comes around. From a general and hospital healthcare maintenance standpoint, she is going to be on GI and DVT prophylaxis. Flu and pneumonia vaccination will be per protocol. Thank you very much for the consult, Dr. Escobar. We will follow along and make further recommendations as picture progresses/becomes clearer. At this point, I spent about 35-40 minutes of critical care time without overlap excluding any procedural time that may be necessary. She is critically ill on life-sustaining interventions including mechanical ventilatory support and at risk for further decompensation including . JOB# [id number] ROSALIO/TANNER
[2016-07-12] MEDS: APRESOLINE IV SCH ×6 (01:33→21:57)
[2016-07-12] MEDS: SYNTHROID PO SCH (05:05)
[2016-07-12] MEDS: HEPARIN SUB-Q SCH ×3 (05:05→23:35)
[2016-07-12] MEDS: APRESOLINE FEEDTUBE SCH ×3 (05:06→21:56)
[2016-07-12 05:17] LABS: Hematocrit 32.4 % (30.3-42.9); Hemoglobin 10.1 gm/dl (10.1-14.3); Mean Corpuscular HGB Conc 31 % (30-34); Mean Corpuscular Hemoglobin 27 pg (28-32); Mean Corpuscular Volume 87 fl (79-97); Red Blood Count 3.71 M/mm3 (3.65-5.03); Red Cell Distribution Width 17.6 % (13.2-15.2)
[2016-07-12 05:19] LABS: Platelet Count 113 K/mm3 (140-440)
[2016-07-12 05:38] LABS: BUN/Creatinine Ratio 14.82; Calcium 8.8 mg/dL (8.4-10.2); Chloride 110.2 mmol/L (98-107)
[2016-07-12 05:42] LABS: Potassium 6.8 mmol/L (3.6-5.0)
[2016-07-12 06:09] LABS: Basophils % (Manual) 0 % (0.0-1.8); Blastocytes % (Manual) 0 %; Eosinophils % (Manual) 0 % (0.0-4.3)
[2016-07-12 06:11] LABS: Anisocytosis 1+; Elliptocytes Few; Hypochromasia Few
[2016-07-12 06:12] LABS: Diff Status Complete; Platelet Estimate Appears Decreased
[2016-07-12 06:29] LABS: ISTAT Base Excess -3; ISTAT HCO3 20.7; ISTAT PCO2 29.6 (35-45); ISTAT PH 7.452 (7.35-7.45); ISTAT PO2 100 (80-105); ISTAT SO2 98; ISTAT TCO2 22
[2016-07-12] MEDS ORDERED: KAYEXALATE PO ONE ×2 (07:00→10:00)
--- NOTE | 2016-07-12 08:28 | Progress Note ---
Assessment and Plan Recc: ChangeD IV fluid to Bicarb drip this am Gave Lasix x 1 Strict input and output documentation Discussed with nursing Will follow - Patient Problems (1) Hyperkalemia Current Visit: Yes Status: Acute (2) GABRIELA (acute kidney injury) Current Visit: Yes Status: Acute (3) Chronic renal insufficiency Current Visit: Yes Status: Acute Subjective Date of service: 07/12/16 Interval history: Seen in follow up for renal insufficiency and hyperkalemia Objective - Vital Signs Vital signs: Vital Signs - 12hr Temp Pulse Resp BP Pulse Ox 98.6 F 103 H 17 151/70 100 07/12/16 07:24 07/12/16 08:00 07/12/16 08:00 07/12/16 08:00 07/12/16 08:00 Intake & Output 07/10/16 07/11/16 07/12/16 07/13/16 06:59 06:59 06:59 06:59 Intake Total 1921 360 40 0 Output Total 2 250 Balance 1921 358 -210 0 Weight 93.2 kg 77 kg 76.1 kg - General Appearance General appearance: well-developed, appears stated age EENT: PERRL, mucous membranes moist Neck: no JVD, no thyromegaly Respiratory: Present: Clear to Ascultation Cardiology: regular, normal heart rate, S1S2 Gastrointestinal: normoactive bowel sounds Integumentary: no rash, warm and dry Neurologic: no focal deficit Musculoskeletal: no deformities, no erythema, no cyanosis, no clubbing Psychiatric: cooperative - Lab 07/12/16 04:34 07/12/16 21:11 Most recent lab results Calcium 8.8 mg/dL (8.4-10.2) 07/12/16 04:34 Phosphorus 2.8 mg/dL (2.5-4.5) 07/11/16 12:22 Magnesium 1.9 mg/dL (1.7-2.3) 07/11/16 12:22 Urine Creatinine 36.6 mg/dL (0.1-20.0) H 07/06/16 01:18 Urine Sodium 28 mEq/L 07/06/16 01:18 Generic Name Dose Route Start Last Admin Trade Name Freq PRN Reason Stop Dose Admin Lipase/Protease/Amylase 1 each 07/11/16 15:[address] 10,500 Unit FEEDTUBE PRN PRN For Clogged Feeding Tube Dextrose 50 ml 07/04/16 08:28 07/11/16 10:02 D50w (25gm) IV 50 ml PRN PRN Administration Hypoglycemia Diphenhydramine HCl 25 mg 07/11/16 06:46 Benadryl IV Q6H PRN Itching Famotidine 20 mg 07/11/16 10:00 07/11/16 09:45 Pepcid IV 20 mg DAILY RACHEL Administration Gabapentin 100 mg 07/03/16 22:00 07/11/16 21:51 Neurontin PO 100 mg BID RACHEL Administration Heparin Sodium (Porcine) 5,000 unit 07/11/16 14:00 07/12/16 05:05 Heparin SUB-Q 5,000 unit Q8HR RACHEL Administration Hydralazine HCl 10 mg 07/11/16 14:00 07/12/16 05:13 Apresoline IV 07/12/16 23:59 10 mg Q4HR RACHEL Administration Hydralazine HCl 50 mg 07/11/16 14:00 07/12/16 05:06 Apresoline FEEDTUBE 50 mg Q8HR RACHEL Administration Hydrophilic Ointment 1 applic 07/11/16 07:57 Vaseline Lip Therapy TP Q2HR PRN Dry Lips Dextrose/Sodium Chloride 1,000 mls @ 75 mls/hr 07/11/16 11:00 07/11/16 11:28 D5ns IV 75 mls/hr DIRECT RACHEL Administration Insulin Aspart 0 units 07/04/16 11:30 07/11/16 21:43 Novolog SUB-Q Not Given ACHS [facility] Protocol Insulin Human Isoph/Insulin Regular 45 unit 07/04/16 22:00 07/11/16 21:52 Novolin 70/30 SUB-Q 45 unit QHS RACHEL Administration Labetalol HCl 200 mg 07/03/16 22:00 07/11/16 21:51 Normodyne PO 200 mg BID RACHEL Administration Levothyroxine Sodium 150 mcg 07/06/16 06:00 07/12/16 05:05 Synthroid PO 150 mcg DAILY@0600 RACHEL Administration Methylprednisolone Sodium Succinate 125 mg 07/11/16 08:00 07/12/16 05:05 Solu-Medrol IV 125 mg Q6HR RACHEL Administration Multi-Ingred Cream/Lotion/Oil/Oint 1 applic 07/11/16 07:57 Artificial Tears Ophth Oint OU Q4HR PRN Dry Eye(s) Olanzapine 10 mg 07/03/16 22:00 07/11/16 21:52 Zyprexa PO 10 mg HS RACHEL Administration Simple Syrup 15 ml 07/11/16 15:59 Simple Syrup FEEDTUBE PRN PRN Hypoglycemia Simple Syrup 30 ml 07/11/16 15:59 Simple Syrup FEEDTUBE PRN PRN Hypoglycemia Sodium Bicarbonate 325 mg 07/11/16 15:59 Sodium Bicarbonate FEEDTUBE PRN PRN For Clogged Feeding Tube
[2016-07-12] MEDS ORDERED: D50W (25GM) IV PRN (08:53)
--- NOTE | 2016-07-12 08:53 | Progress Note ---
Assessment and Plan Assessment and plan: 1. Acute hypoxic respiratory failure. Patient is currently intubated on mechanical ventilation. Continue vent management per pulmonary. Consider extubation today. 2. ? Angioedema. Continue Pepcid, Benadryl and steroids. 3. Urinary tract infection. Klebsiella. Treated. D/C'D IV Rocephin. 4. Acute on CKD stage IV. Etiology likely secondary to vasomotor nephropathy versus interstitial nephritis from initial treatment with Bactrim for UTI. Nephrology following. Follow-up BMP. 5. Hyperkalemia. Patient received Kayexalate, D5 and insulin. However, patient's potassium still remains elevated this morning at 6.8. Repeat Kayexalate, D5 and insulin. 6. Hypoglycemia. Resolved. Monitor blood glucose closely. Change IV fluid to normal saline. 7. Toxic metabolic encephalopathy. Continue to treat underlying causes. 8. Hypothyroidism, chronic and worsening. Continue Synthroid. 9. Hypertension, chronic. Continue antihypertensive medications and monitor. Hydralazine when necessary 10. DVT prophylaxis: SCDs, lovenox daily 11. Acute on chronic anemia chronic disease: Monitor closely The high probability of a clinically significant, sudden or life threatening deterioration of the [respiratory] system(s) required my full and direct attention, intervention and personal management. The aggregate critical care time was [31] minutes. This time is in addition to time spent performing reported procedures but includes the following: [x] Data Review and interpretation [x] Patient assessment and monitoring of vital signs [x] Documentation [x] Medication orders and management History Interval history: Patient is a 70-year-old woman with a history of dementia, CKD 3-4, anemia of chronic disease, hypothyroidism, hypertension, type 2 diabetes mellitus, bipolar disorder and arthritis who presented on 06/30/2016 with mental health concerns per family. Patient did not go home. She remained in the ER until 11/2015, until it was decided that she needed placement. Patient was noted to be unresponsive on 07/11/16. Patient also had ? angioedema and required intubation. Patient currently intubated on mechanical ventilation. Hospitalist Physical - Constitutional Vitals: Temp Pulse Resp BP Pulse Ox 98.6 F 103 H 17 151/70 100 07/12/16 07:24 07/12/16 08:00 07/12/16 08:00 07/12/16 08:00 07/12/16 08:00 General appearance: Present: no acute distress, other (intubated and sedated) - EENT Eyes: Present: PERRL, EOM intact ENT: hearing intact, clear oral mucosa, dentition normal - Neck Neck: Present: supple, normal ROM - Respiratory Respiratory effort: normal Respiratory: bilateral: diminished, rhonchi - Cardiovascular Rhythm: regular Heart Sounds: Present: S1 & S2. Absent: gallop, rub - Extremities Extremities: no ischemia, No edema, Full ROM - Abdominal General gastrointestinal: soft, non-tender, non-distended, normal bowel sounds - Integumentary Integumentary: Present: clear, warm, dry - Neurologic Neurologic: CNII-XII intact, moves all extremities Results - Labs CBC & Chem 7: 07/12/16 04:34 07/12/16 04:34 Labs: Laboratory Last Values WBC 14.0 K/mm3 (4.5-11.0) H 07/12/16 04:34 RBC 3.71 M/mm3 (3.65-5.03) 07/12/16 04:34 Hgb 10.1 gm/dl (10.1-14.3) 07/12/16 04:34 Hct 32.4 % (30.3-42.9) 07/12/16 04:34 MCV 87 fl (79-97) 07/12/16 04:34 MCH 27 pg (28-32) L 07/12/16 04:34 MCHC 31 % (30-34) 07/12/16 04:34 RDW 17.6 % (13.2-15.2) H 07/12/16 04:34 Plt Count 113 K/mm3 (140-440) L 07/12/16 04:34 Lymph % (Auto) 22.3 % (13.4-35.0) 07/10/16 06:43 [place] % (Auto) 2.1 % (0.0-7.3) 07/11/16 12:22 Eos % (Auto) 0.1 % (0.0-4.3) 07/11/16 12:22 Baso % (Auto) 0.4 % (0.0-1.8) 07/10/16 06:43 Lymph # 1.1 K/mm3 (1.2-5.4) L 07/10/16 06:43 [place] # 0.5 K/mm3 (0.0-0.8) 07/10/16 06:43 Eos # 0.2 K/mm3 (0.0-0.4) 07/10/16 06:43 Baso # 0.0 K/mm3 (0.0-0.1) 07/10/16 06:43 Add Manual Diff Complete 07/12/16 04:34 Total Counted 100 07/12/16 04:34 Seg Neutrophils % Medical Consultant 07/11/16 12:22 Seg Neuts % (Manual) 87.0 % (40.0-70.0) H 07/12/16 04:34 Band Neutrophils % 0 % 07/12/16 04:34 Lymphocytes % (Manual) 11.0 % (13.4-35.0) L 07/12/16 04:34 Reactive Lymphs % (Man) 0 % 07/12/16 04:34 Monocytes % (Manual) 2.0 % (0.0-7.3) 07/12/16 04:34 Eosinophils % (Manual) 0 % (0.0-4.3) 07/12/16 04:34 Basophils % (Manual) 0 % (0.0-1.8) 07/12/16 04:34 Metamyelocytes % 0 % 07/12/16 04:34 Myelocytes % 0 % 07/12/16 04:34 Promyelocytes % 0 % 07/12/16 04:34 Blast Cells % 0 % 07/12/16 04:34 Nucleated RBC % Not Reportable 07/12/16 04:34 Seg Neutrophils # 10.8 K/mm3 (1.8-7.7) H 07/11/16 12:22 Seg Neutrophils # Man 12.2 K/mm3 (1.8-7.7) H 07/12/16 04:34 Band Neutrophils # 0.0 K/mm3 07/12/16 04:34 Lymphocytes # (Manual) 1.5 K/mm3 (1.2-5.4) 07/12/16 04:34 Abs React Lymphs (Man) 0.0 K/mm3 07/12/16 04:34 Monocytes # (Manual) 0.3 K/mm3 (0.0-0.8) 07/12/16 04:34 Eosinophils # (Manual) 0.0 K/mm3 (0.0-0.4) 07/12/16 04:34 Basophils # (Manual) 0.0 K/mm3 (0.0-0.1) 07/12/16 04:34 Metamyelocytes # 0.0 K/mm3 07/12/16 04:34 Myelocytes # 0.0 K/mm3 07/12/16 04:34 Promyelocytes # 0.0 K/mm3 07/12/16 04:34 Blast Cells # 0.0 K/mm3 07/12/16 04:34 WBC Morphology Not Reportable 07/12/16 04:34 Hypersegmented Neuts Not Reportable 07/12/16 04:34 Hyposegmented Neuts Not Reportable 07/12/16 04:34 Hypogranular Neuts Not Reportable 07/12/16 04:34 Smudge Cells Not Reportable 07/12/16 04:34 Toxic Granulation Not Reportable 07/12/16 04:34 Toxic Vacuolation Not Reportable 07/12/16 04:34 Dohle Bodies Not Reportable 07/12/16 04:34 Pelger-Huet Anomaly Not Reportable 07/12/16 04:34 Shagufta Rods Not Reportable 07/12/16 04:34 Platelet Estimate Appears decreased 07/12/16 04:34 Clumped Platelets Not Reportable 07/12/16 04:34 Plt Clumps, EDTA Not Reportable 07/12/16 04:34 Large Platelets Not Reportable 07/12/16 04:34 Giant Platelets Not Reportable 07/12/16 04:34 Platelet Satelliting Not Reportable 07/12/16 04:34 Plt Morphology Comment Not Reportable 07/12/16 04:34 RBC Morphology Not Reportable 07/12/16 04:34 Dimorphic RBCs Not Reportable 07/12/16 04:34 Polychromasia Not Reportable 07/12/16 04:34 Hypochromasia Few 07/12/16 04:34 Poikilocytosis Not Reportable 07/12/16 04:34 Anisocytosis 1+ 07/12/16 04:34 Microcytosis Not Reportable 07/12/16 04:34 Macrocytosis Not Reportable 07/12/16 04:34 Spherocytes Not Reportable 07/12/16 04:34 Pappenheimer Bodies Not Reportable 07/12/16 04:34 Sickle Cells Not Reportable 07/12/16 04:34 Target Cells Not Reportable 07/12/16 04:34 Tear Drop Cells Not Reportable 07/12/16 04:34 Ovalocytes Not Reportable 07/12/16 04:34 Helmet Cells Not Reportable 07/12/16 04:34 [place] Bodies Not Reportable 07/12/16 04:34 [place] Rings Not Reportable 07/12/16 04:34 [place] Cells Not Reportable 07/12/16 04:34 Bite Cells Not Reportable 07/12/16 04:34 Crenated Cell Not Reportable 07/12/16 04:34 Elliptocytes Few 07/12/16 04:34 Acanthocytes (Spur) Not Reportable 07/12/16 04:34 Rouleaux Not Reportable 07/12/16 04:34 Hemoglobin C Crystals Not Reportable 07/12/16 04:34 Schistocytes Not Reportable 07/12/16 04:34 Malaria parasites Not Reportable 07/12/16 04:34 Kaushik Bodies Not Reportable 07/12/16 04:34 Hem Pathologist Commnt No 07/12/16 04:34 D-Dimer 751.80 ng/mlDDU (0-234) H 07/11/16 12:22 POC ABG pH 7.452 (7.35-7.45) H 07/12/16 05:22 POC ABG pCO2 29.6 (35-45) L 07/12/16 05:22 POC ABG pO2 100 (80-105) 07/12/16 05:22 POC ABG HCO3 20.7 07/12/16 05:22 POC ABG Total CO2 22 07/12/16 05:22 POC ABG O2 Sat 98 07/12/16 05:22 POC ABG Base Excess -3 07/12/16 05:22 FiO2 21 % 07/12/16 05:22 Sodium 145 mmol/L (137-145) 07/12/16 04:34 Potassium 6.8 mmol/L (3.6-5.0) H* 07/12/16 04:34 Chloride 110.2 mmol/L (98-107) H 07/12/16 04:34 Carbon Dioxide 16 mmol/L (22-30) L 07/12/16 04:34 Anion Gap 26 mmol/L 07/12/16 04:34 BUN 43 mg/dL (7-17) H 07/12/16 04:34 Creatinine 2.9 mg/dL (0.7-1.2) H 07/12/16 04:34 Estimated GFR 19 ml/min 07/12/16 04:34 BUN/Creatinine Ratio 14.82 % 07/12/16 04:34 Glucose 113 mg/dL (65-100) H 07/12/16 04:34 POC Glucose 142 (70-105) H 07/11/16 21:42 Lactic Acid 1.3 mmol/L (0.7-2.0) 07/11/16 12:22 Calcium 8.8 mg/dL (8.4-10.2) 07/12/16 04:34 Phosphorus 2.8 mg/dL (2.5-4.5) 07/11/16 12:22 Magnesium 1.9 mg/dL (1.7-2.3) 07/11/16 12:22 Total Bilirubin < 0.2 mg/dL (0.1-1.2) 07/10/16 06:43 AST 17 units/L (5-40) 07/10/16 06:43 ALT 9 units/L (7-56) 07/10/16 06:43 Alkaline Phosphatase 62 units/L (35-129) 07/10/16 06:43 Total Creatine Kinase 131 units/L (30-135) 07/11/16 12:22 CK-MB (CK-2) 2.0 ng/mL (0.0-4.0) 07/11/16 12:22 CK-MB (CK-2) Rel Index 1.5 (0-4) 07/11/16 12:22 Troponin T < 0.010 ng/mL (0.00-0.029) 07/11/16 12:22 Total Protein 6.7 g/dL (6.3-8.2) 07/10/16 06:43 Albumin 3.5 g/dL (3.9-5) L 07/10/16 06:43 Albumin/Globulin Ratio 1.1 % 07/10/16 06:43 TSH 8.090 mlU/mL (0.270-4.200) H 07/05/16 05:08 Urine Color Straw (Yellow) 07/06/16 01:18 Urine Turbidity Clear (Clear) 07/06/16 01:18 Urine pH 6.0 (5.0-7.0) 07/06/16 01:18 Ur Specific [place] 1.003 (1.003-1.030) 07/06/16 01:18 Urine Protein <15 mg/dl mg/dL (Negative) 07/06/16 01:18 Urine Glucose (UA) Neg mg/dL (Negative) 07/06/16 01:18 Urine Ketones Neg mg/dL (Negative) 07/06/16 01:18 Urine Blood Neg (Negative) 07/06/16 01:18 Urine Nitrite Neg (Negative) 07/06/16 01:18 Urine Bilirubin Neg (Negative) 07/06/16 01:18 Urine Urobilinogen < 2.0 mg/dL (<2.0) 07/06/16 01:18 Ur Leukocyte Esterase Mod (Negative) 07/06/16 01:18 Urine WBC (Auto) 7.0 /HPF (0.0-6.0) H 07/06/16 01:18 Urine RBC (Auto) 3.0 /HPF (0.0-6.0) 07/06/16 01:18 U Epithel Cells (Auto) 1.0 /HPF (0-13.0) 06/30/16 11:34 Urine Bacteria (Auto) 1+ /HPF (Negative) 06/30/16 11:34 Urine Eosinophils None seen (None Seen) 07/06/16 01:18 Urine Creatinine 36.6 mg/dL (0.1-20.0) H 07/06/16 01:18 Urine Microalbumin 6.5 mg/dL (0.1-34.0) 07/06/16 01:18 Microalb/Creat Ratio 177.5 ug/mg 07/06/16 01:18 Urine Sodium 28 mEq/L 07/06/16 01:18 Urine Opiates Screen Presumptive negative 06/30/16 11:34 Urine Methadone Screen Presumptive negative 06/30/16 11:34 Acetaminophen < 15.0 ug/mL (10.0-30.0) 06/30/16 12:01 Ur Barbiturates Screen Presumptive negative 06/30/16 11:34 Ur Phencyclidine Scrn Presumptive negative 06/30/16 11:34 Ur Amphetamines Screen Presumptive negative 06/30/16 11:34 U Benzodiazepines Scrn Presumptive negative 06/30/16 11:34 Urine Cocaine Screen Presumptive negative 06/30/16 11:34 U Marijuana (THC) Screen Presumptive negative 06/30/16 11:34 Drugs of Abuse Note Disclamer 06/30/16 11:34 Plasma/Serum Alcohol < 0.01 gm% (0-0.07) 06/30/16 12:01
[2016-07-12] MEDS ORDERED: LASIX IV ONE (09:00)
--- NOTE | 2016-07-12 09:04 | XRay Report ---
SINGLE VIEW CHEST: Compared to 07/11/16. HISTORY: Followup of respiratory failure. FINDINGS: Normal cardiomediastinal silhouette. Trachea is midline. Tip of endotracheal tube in normal position. No consolidation, pneumothorax or pleural effusion. IMPRESSION: No acute cardiopulmonary findings.
[2016-07-12] MEDS ORDERED: NACL 0.45% 1000 ML 1,000 ML with SODIUM BICARBONATE 50 MEQ IV SCH ×2 (09:30)
[2016-07-12] MEDS ORDERED: NACL 0.45% IV SCH (10:00)
[2016-07-12] MEDS ORDERED: SODIUM BICARBONATE IV SCH (10:00)
[2016-07-12] MEDS: PEPCID IV SCH (10:09)
[2016-07-12] MEDS: NEURONTIN PO SCH ×2 (10:19→21:56)
[2016-07-12] MEDS: NORMODYNE PO SCH ×2 (10:19→21:57)
--- NOTE | 2016-07-12 10:35 | Progress Note ---
Assessment and Plan - Patient Problems (1) Bipolar disorder Current Visit: No Status: Acute Qualifiers: Active/Remission status: remission status unspecified Most recent bipolar episode type: most recent episode unspecified type Plan to address problem: - psych evaluation post extubation - prn haldol - continue scheduled antipsychotic meds (2) Renal failure (ARF), acute on chronic Current Visit: No Status: Acute Plan to address problem: - non oliguric - nephrology evaluation per attending - corrrect electrolytes as necessary (3) Malignant hypertension Current Visit: No Status: Chronic Plan to address problem: - up-titrate orol hydralazine - labetolol added - will give prn apressoline order (4) Acute respiratory failure Current Visit: Yes Status: Acute Plan to address problem: - schedule benadryl - make pepcid q12h - reduce solumedrol dose - daytime PSV trials as tolerated - extubate once cuff leak improved - continue bronchodilators and pulmonary toilet - continue aspiration precautions / VAP bundles (5) Angioedema Current Visit: Yes Status: Acute Plan to address problem: - no obvious external edema - continue anti-histamine therapy and steroids (6) Dysphagia Current Visit: Yes Status: Acute Plan to address problem: - to begin enteral nutrition (7) Discharge planning issues Current Visit: No Status: Acute Plan to address problem: - hopefully responds to therapy quickly and can be transferred back to medical floor ..she remains critically ill on life sustaining interventions including MVS; at high risk for further deterioration including ...37' CCT Subjective Date of service: 07/12/16 Principal diagnosis: Acute Respiratory Failure; Angioedema Interval history: Seen and examined at bedside; 24 hour events reviewed; nursing and respiratory care staff consulted; no adverse overnight events reported to me; absolutely no significant cuff leak indicating persistent oropharyngeal angioedema; lethargic ; no emesis or overt aspiration; hyperkalemia noted today also and has received kayexalate Objective Vital Signs - 12hr 07/11/16 07/11/16 07/11/16 22:37 23:00 23:03 Temperature Pulse Rate 102 H 102 H 102 H Pulse Rate [ Right Radial] Respiratory 13 18 15 Rate Blood Pressure 148/69 150/72 150/72 O2 Sat by Pulse 100 99 100 Oximetry 07/11/16 07/12/16 07/12/16 23:30 00:00 00:08 Temperature 100.4 F H Pulse Rate 104 H 103 H 102 H Pulse Rate [ 99 H Right Radial] Respiratory 14 13 Rate Blood Pressure 147/71 160/76 160/76 O2 Sat by Pulse 98 99 100 Oximetry 07/12/16 07/12/16 07/12/16 00:30 01:01 01:31 Temperature Pulse Rate 100 H 101 H 98 H Pulse Rate [ Right Radial] Respiratory 15 19 15 Rate Blood Pressure 126/60 149/79 136/71 O2 Sat by Pulse 99 99 100 Oximetry 07/12/16 07/12/16 07/12/16 01:33 01:41 01:59 Temperature Pulse Rate 98 H 98 H 89 Pulse Rate [ Right Radial] Respiratory 16 11 L Rate Blood Pressure 136/71 136/71 136/71 O2 Sat by Pulse 100 100 Oximetry 07/12/16 07/12/16 07/12/16 02:00 02:01 02:07 Temperature Pulse Rate 88 91 H 98 H Pulse Rate [ Right Radial] Respiratory 12 12 14 Rate Blood Pressure 147/68 147/68 147/68 O2 Sat by Pulse 100 100 100 Oximetry 07/12/16 07/12/16 07/12/16 02:31 03:00 03:09 Temperature Pulse Rate 92 H 95 H 94 H Pulse Rate [ Right Radial] Respiratory 12 13 13 Rate Blood Pressure 147/68 133/63 133/63 O2 Sat by Pulse 100 99 100 Oximetry 07/12/16 07/12/16 07/12/16 03:31 04:00 04:01 Temperature 99.2 F Pulse Rate 95 H 102 H Pulse Rate [ 98 H Right Radial] Respiratory 12 19 11 L Rate Blood Pressure 133/63 155/83 O2 Sat by Pulse 100 99 99 Oximetry 07/12/16 07/12/16 07/12/16 04:07 04:12 04:31 Temperature Pulse Rate 96 H 99 H 96 H Pulse Rate [ Right Radial] Respiratory 17 14 Rate Blood Pressure 155/83 155/83 155/83 O2 Sat by Pulse 100 100 100 Oximetry 07/12/16 07/12/16 07/12/16 05:00 05:06 05:13 Temperature Pulse Rate 95 H 107 H 104 H Pulse Rate [ Right Radial] Respiratory 13 Rate Blood Pressure 157/74 177/73 177/73 O2 Sat by Pulse 97 Oximetry 07/12/16 07/12/1616 05:31 06:00 06:03 Temperature Pulse Rate 100 H 107 H 103 H Pulse Rate [ Right Radial] Respiratory 13 17 15 Rate Blood Pressure 177/73 147/66 147/66 O2 Sat by Pulse 100 98 100 Oximetry 07/12/16 07/12/16 07/12/16 06:30 07:00 07:24 Temperature 98.6 F Pulse Rate 102 H 97 H Pulse Rate [ Right Radial] Respiratory 17 12 Rate Blood Pressure 147/66 133/60 O2 Sat by Pulse 100 98 Oximetry 07/12/16 07/12/16 07/12/16 07:31 07:39 08:00 Temperature Pulse Rate 96 H 99 H 103 H Pulse Rate [ Right Radial] Respiratory 14 13 17 Rate Blood Pressure 133/60 133/60 151/70 O2 Sat by Pulse 100 100 100 Oximetry 07/12/16 07/12/16 09:29 10:19 Temperature Pulse Rate 109 H 105 H Pulse Rate [ Right Radial] Respiratory Rate Blood Pressure 159/67 145/73 O2 Sat by Pulse 98 Oximetry Constitutional: no acute distress, lethargic Eyes: non-icteric ENT: oropharynx moist Neck: supple, no lymphadenopathy Effort: normal Ascultation: Bilateral: clear, diminished breath sounds Cardiovascular: regular rate and rhythm Gastrointestinal: normoactive bowel sounds, soft, non-tender, non-distended Integumentary: normal Extremities: no cyanosis, no edema, pulses normal, no ischemia or petechiae Neurologic: non-focal exam (grossly), pupils equal and round, motor strength normal and Psychiatric: other (unable to assess due to mental status) CBC and BMP: 07/13/16 04:40 07/13/16 04:40 ABG, PT/INR, D-dimer: ABG POC ABG pH 7.452 (7.35-7.45) H 07/12/16 05:22 POC ABG pCO2 29.6 (35-45) L 07/12/16 05:22 POC ABG pO2 100 (80-105) 07/12/16 05:22 POC ABG HCO3 20.7 07/12/16 05:22 POC ABG Total CO2 22 07/12/16 05:22 POC ABG O2 Sat 98 07/12/16 05:22 PT/INR, D-dimer D-Dimer 751.80 ng/mlDDU (0-234) H 07/11/16 12:22 Abnormal lab findings: Abnormal Labs 07/03/16 07/03/16 07/04/16 14:34 14:34 06:21 WBC 3.9 L RBC 3.16 L 3.04 L Hgb 8.5 L 8.0 L Hct 26.8 L 25.6 L MCH 27 L 26 L RDW 16.5 H 16.2 H Plt Count [place] % (Auto) 10.7 H 10.7 H Lymph # 1.0 L Seg Neuts % (Manual) Lymphocytes % (Manual) Seg Neutrophils # Seg Neutrophils # Man Lymphocytes # (Manual) D-Dimer POC ABG pH POC ABG pCO2 POC ABG pO2 Sodium Potassium Chloride 107.6 H Carbon Dioxide BUN 27 H Creatinine 2.6 H Glucose POC Glucose Calcium 8.0 L Albumin TSH Urine WBC (Auto) Urine Creatinine 07/04/16 07/04/16 07/04/16 06:21 11:30 16:33 WBC RBC Hgb Hct MCH RDW Plt Count [place] % (Auto) Lymph # Seg Neuts % (Manual) Lymphocytes % (Manual) Seg Neutrophils # Seg Neutrophils # Man Lymphocytes # (Manual) D-Dimer POC ABG pH POC ABG pCO2 POC ABG pO2 Sodium Potassium Chloride 107.4 H Carbon Dioxide 21 L BUN 27 H Creatinine 2.7 H Glucose POC Glucose 110 H 106 H Calcium 7.8 L Albumin TSH Urine WBC (Auto) Urine Creatinine 07/05/16 07/05/16 07/05/16 05:08 05:08 05:08 WBC 4.0 L RBC 2.87 L Hgb 7.7 L Hct 24.2 L MCH 27 L RDW 16.0 H Plt Count [place] % (Auto) Lymph # Seg Neuts % (Manual) Lymphocytes % (Manual) Seg Neutrophils # Seg Neutrophils # Man Lymphocytes # (Manual) D-Dimer POC ABG pH POC ABG pCO2 POC ABG pO2 Sodium Potassium Chloride Carbon Dioxide 21 L BUN 32 H Creatinine 3.7 H Glucose POC Glucose Calcium 7.8 L Albumin TSH 8.090 H Urine WBC (Auto) Urine Creatinine 07/05/16 07/06/16 07/06/16 11:45 01:18 01:18 WBC RBC Hgb 8.3 L Hct 25.9 L MCH RDW Plt Count [place] % (Auto) Lymph # Seg Neuts % (Manual) Lymphocytes % (Manual) Seg Neutrophils # Seg Neutrophils # Man Lymphocytes # (Manual) D-Dimer POC ABG pH POC ABG pCO2 POC ABG pO2 Sodium Potassium Chloride Carbon Dioxide BUN Creatinine Glucose POC Glucose Calcium Albumin TSH Urine WBC (Auto) 7.0 H Urine Creatinine 36.6 H 07/06/16 07/06/16 07/06/16 05:55 05:55 16:07 WBC 3.0 L RBC 2.79 L Hgb 7.5 L Hct 23.5 L MCH 27 L RDW 16.5 H Plt Count [place] % (Auto) Lymph # Seg Neuts % (Manual) Lymphocytes % (Manual) Seg Neutrophils # Seg Neutrophils # Man Lymphocytes # (Manual) D-Dimer POC ABG pH POC ABG pCO2 POC ABG pO2 Sodium Potassium Chloride 109.3 H Carbon Dioxide 20 L BUN 32 H Creatinine 3.4 H Glucose POC Glucose 117 H Calcium 7.5 L Albumin TSH Urine WBC (Auto) Urine Creatinine 07/07/16 07/07/16 07/08/16 06:19 16:13 00:09 WBC RBC Hgb Hct MCH RDW Plt Count [place] % (Auto) Lymph # Seg Neuts % (Manual) Lymphocytes % (Manual) Seg Neutrophils # Seg Neutrophils # Man Lymphocytes # (Manual) D-Dimer POC ABG pH POC ABG pCO2 POC ABG pO2 Sodium Potassium Chloride 111.1 H Carbon Dioxide 20 L BUN 31 H Creatinine 3.1 H Glucose POC Glucose 108 H 134 H Calcium 8.0 L Albumin TSH Urine WBC (Auto) Urine Creatinine 07/08/16 07/08/16 07/08/16 11:39 16:31 21:22 WBC RBC Hgb Hct MCH RDW Plt Count [place] % (Auto) Lymph # Seg Neuts % (Manual) Lymphocytes % (Manual) Seg Neutrophils # Seg Neutrophils # Man Lymphocytes # (Manual) D-Dimer POC ABG pH POC ABG pCO2 POC ABG pO2 Sodium Potassium Chloride Carbon Dioxide BUN Creatinine Glucose POC Glucose 119 H 130 H 152 H Calcium Albumin TSH Urine WBC (Auto) Urine Creatinine 07/09/16 07/09/16 07/09/16 05:52 05:52 06:02 WBC RBC 3.55 L Hgb 9.4 L Hct MCH 27 L RDW 17.1 H Plt Count [place] % (Auto) Lymph # Seg Neuts % (Manual) Lymphocytes % (Manual) Seg Neutrophils # Seg Neutrophils # Man Lymphocytes # (Manual) D-Dimer POC ABG pH POC ABG pCO2 POC ABG pO2 Sodium 147 H Potassium 5.4 H Chloride 112.8 H Carbon Dioxide 21 L BUN 30 H Creatinine 2.5 H Glucose 21 L* POC Glucose < 40 L Calcium Albumin TSH Urine WBC (Auto) Urine Creatinine 07/09/16 07/09/16 07/10/16 11:31 16:50 05:23 WBC RBC Hgb Hct MCH RDW Plt Count [place] % (Auto) Lymph # Seg Neuts % (Manual) Lymphocytes % (Manual) Seg Neutrophils # Seg Neutrophils # Man Lymphocytes # (Manual) D-Dimer POC ABG pH POC ABG pCO2 POC ABG pO2 Sodium Potassium Chloride Carbon Dioxide BUN Creatinine Glucose POC Glucose 114 H 149 H < 40 L Calcium Albumin TSH Urine WBC (Auto) Urine Creatinine 07/10/16 07/10/16 07/10/16 06:03 06:43 06:43 WBC RBC 2.90 L Hgb 7.7 L Hct 25.0 L MCH 27 L RDW 17.0 H Plt Count [place] % (Auto) 10.4 H Lymph # 1.1 L Seg Neuts % (Manual) Lymphocytes % (Manual) Seg Neutrophils # Seg Neutrophils # Man Lymphocytes # (Manual) D-Dimer POC ABG pH POC ABG pCO2 POC ABG pO2 Sodium 148 H Potassium 5.1 H Chloride 111.7 H Carbon Dioxide 20 L BUN 31 H Creatinine 2.4 H Glucose POC Glucose 211 H Calcium 8.0 L Albumin 3.5 L TSH Urine WBC (Auto) Urine Creatinine 07/10/16 07/11/16 07/11/16 14:55 05:37 05:47 WBC RBC Hgb 7.9 L Hct 25.5 L MCH RDW Plt Count [place] % (Auto) Lymph # Seg Neuts % (Manual) Lymphocytes % (Manual) Seg Neutrophils # Seg Neutrophils # Man Lymphocytes # (Manual) D-Dimer POC ABG pH POC ABG pCO2 POC ABG pO2 Sodium Potassium Chloride Carbon Dioxide BUN Creatinine Glucose POC Glucose < 40 L > 500 H Calcium Albumin TSH Urine WBC (Auto) Urine Creatinine 07/11/16 07/11/16 07/11/16 05:56 07:42 07:48 WBC RBC Hgb Hct MCH RDW Plt Count [place] % (Auto) Lymph # Seg Neuts % (Manual) Lymphocytes % (Manual) Seg Neutrophils # Seg Neutrophils # Man Lymphocytes # (Manual) D-Dimer POC ABG pH POC ABG pCO2 POC ABG pO2 Sodium Potassium Chloride Carbon Dioxide BUN Creatinine Glucose POC Glucose 262 H 56 L 54 L Calcium Albumin TSH Urine WBC (Auto) Urine Creatinine 07/11/16 07/11/16 07/11/16 08:34 08:50 09:53 WBC RBC Hgb Hct MCH RDW Plt Count [place] % (Auto) Lymph # Seg Neuts % (Manual) Lymphocytes % (Manual) Seg Neutrophils # Seg Neutrophils # Man Lymphocytes # (Manual) D-Dimer POC ABG pH POC ABG pCO2 31.1 L POC ABG pO2 108 H Sodium Potassium Chloride Carbon Dioxide BUN Creatinine Glucose POC Glucose 110 H 68 L Calcium Albumin TSH Urine WBC (Auto) Urine Creatinine 07/11/16 07/11/16 07/11/16 11:48 12:22 12:22 WBC 11.6 H RBC Hgb Hct MCH 27 L RDW 17.2 H Plt Count [place] % (Auto) Lymph # Seg Neuts % (Manual) 91.0 H Lymphocytes % (Manual) 5.0 L Seg Neutrophils # 10.8 H Seg Neutrophils # Man 10.6 H Lymphocytes # (Manual) 0.6 L D-Dimer 751.80 H POC ABG pH POC ABG pCO2 POC ABG pO2 Sodium Potassium Chloride Carbon Dioxide BUN Creatinine Glucose POC Glucose 118 H Calcium Albumin TSH Urine WBC (Auto) Urine Creatinine 07/11/16 07/11/16 07/11/16 12:22 12:29 15:23 WBC RBC Hgb Hct MCH RDW Plt Count [place] % (Auto) Lymph # Seg Neuts % (Manual) Lymphocytes % (Manual) Seg Neutrophils # Seg Neutrophils # Man Lymphocytes # (Manual) D-Dimer POC ABG pH POC ABG pCO2 28.4 L POC ABG pO2 Sodium Potassium 6.1 H* Chloride 109.4 H Carbon Dioxide 18 L BUN 30 H Creatinine 2.1 H Glucose 126 H POC Glucose 204 H Calcium Albumin TSH Urine WBC (Auto) Urine Creatinine 07/11/16 07/11/16 07/11/16 17:27 17:55 21:42 WBC RBC Hgb Hct MCH RDW Plt Count [place] % (Auto) Lymph # Seg Neuts % (Manual) Lymphocytes % (Manual) Seg Neutrophils # Seg Neutrophils # Man Lymphocytes # (Manual) D-Dimer POC ABG pH POC ABG pCO2 POC ABG pO2 Sodium 146 H Potassium 6.5 H* Chloride 109.7 H Carbon Dioxide 20 L BUN 32 H Creatinine 2.4 H Glucose 167 H POC Glucose 433 H 142 H Calcium Albumin TSH Urine WBC (Auto) Urine Creatinine 07/12/16 07/12/16 07/12/16 04:34 04:34 05:22 WBC 14.0 H RBC Hgb Hct MCH 27 L RDW 17.6 H Plt Count 113 L [place] % (Auto) Lymph # Seg Neuts % (Manual) 87.0 H Lymphocytes % (Manual) 11.0 L Seg Neutrophils # Seg Neutrophils # Man 12.2 H Lymphocytes # (Manual) D-Dimer POC ABG pH 7.452 H POC ABG pCO2 29.6 L POC ABG pO2 Sodium Potassium 6.8 H* Chloride 110.2 H Carbon Dioxide 16 L BUN 43 H Creatinine 2.9 H Glucose 113 H POC Glucose Calcium Albumin TSH Urine WBC (Auto) Urine Creatinine Chest x-ray: image reviewed
[2016-07-12] MEDS: NOVOLOG SUB-Q SCH ×3 (18:05→23:34)
[2016-07-12 21:49] LABS: BUN/Creatinine Ratio 14.05; Chloride 108.9 mmol/L (98-107); Potassium 3.9 mmol/L (3.6-5.0)
[2016-07-12] MEDS: BENADRYL IV SCH (21:56)
[2016-07-13] MEDS: BENADRYL IV SCH ×3 (03:14→20:34)
[2016-07-13] MEDS: APRESOLINE FEEDTUBE SCH ×3 (05:23→21:58)
[2016-07-13] MEDS: SYNTHROID PO SCH (05:24)
[2016-07-13] MEDS: HEPARIN SUB-Q SCH ×3 (05:31→21:59)
[2016-07-13 05:34] LABS: Basophils % (Auto) 0.3 % (0.0-1.8); Hematocrit 29.3 % (30.3-42.9); Hemoglobin 9.3 gm/dl (10.1-14.3); Mean Corpuscular HGB Conc 32 % (30-34); Mean Corpuscular Hemoglobin 27 pg (28-32); Platelet Count 277 K/mm3 (140-440); Red Cell Distribution Width 17.3 % (13.2-15.2)
[2016-07-13 05:43] LABS: Mean Corpuscular Volume 85 fl (79-97)
[2016-07-13 05:44] LABS: BUN/Creatinine Ratio 14.75; Calcium 7.7 mg/dL (8.4-10.2); Chloride 109.3 mmol/L (98-107); Potassium 4.2 mmol/L (3.6-5.0)
[2016-07-13] MEDS: D50W (25GM) IV PRN (06:24)
[2016-07-13 08:32] LABS: Blastocytes % (Manual) 0 %
[2016-07-13 08:33] LABS: Anisocytosis 1+; Basophils % (Manual) 0 % (0.0-1.8); Diff Status Complete; Eosinophils % (Manual) 0 % (0.0-4.3); Ovalocytes Few
--- NOTE | 2016-07-13 09:07 | Progress Note ---
Assessment and Plan Assessment and plan: 1. Acute hypoxic respiratory failure. Patient is currently intubated on mechanical ventilation. Continue vent management per pulmonary. Consider extubation today. 2. Angioedema. Continue Pepcid, Benadryl and steroids. Pt. with no significant cuff leak indicating persistent oropharyngeal angioedema. Cont. to check daily. 3. Urinary tract infection. Klebsiella. Treated. D/C'D IV Rocephin. 4. Acute on CKD stage IV. Etiology likely secondary to vasomotor nephropathy versus interstitial nephritis from initial treatment with Bactrim for UTI. Nephrology following. Follow-up BMP. 5. Hyperkalemia. Patient received Kayexalate, D5 and insulin. However, patient's potassium still remains elevated this morning at 6.8. Repeat Kayexalate, D5 and insulin. 6. Hypoglycemia. Resolved. Monitor blood glucose closely. Change IV fluid to normal saline. 7. Toxic metabolic encephalopathy. Continue to treat underlying causes. 8. Hypothyroidism. Continue Synthroid. 9. Hypertension, chronic. Continue antihypertensive medications and monitor. Hydralazine when necessary 10. DVT prophylaxis: SCDs, lovenox daily 11. Acute on chronic anemia of chronic disease: Monitor closely 12. Hypernatremia. Increase free water to 250 mL every 4 hours. 13. Metabolic acidosis. Resolved. Bicarbonate drip discontinued. The high probability of a clinically significant, sudden or life threatening deterioration of the [respiratory] system(s) required my full and direct attention, intervention and personal management. The aggregate critical care time was [32] minutes. This time is in addition to time spent performing reported procedures but includes the following: [x] Data Review and interpretation [x] Patient assessment and monitoring of vital signs [x] Documentation [x] Medication orders and management History Interval history: Patient is a 70-year-old woman with a history of dementia, CKD 3-4, anemia of chronic disease, hypothyroidism, hypertension, type 2 diabetes mellitus, bipolar disorder and arthritis who presented on 06/30/2016 with mental health concerns per family. Patient did not go home. She remained in the ER until 11/2015, until it was decided that she needed placement. Patient was noted to be unresponsive and found to have angioedema on 07/11/16 requiring intubation. Patient currently intubated on mechanical ventilation. Hospitalist Physical - Constitutional Vitals: Temp Pulse Resp BP Pulse Ox 99 F 88 10 L 175/75 100 07/13/16 07:47 07/13/16 08:00 07/13/16 08:00 07/13/16 08:00 07/13/16 08:00 General appearance: Present: no acute distress, other (intubated and sedated) - EENT Eyes: Present: PERRL, EOM intact ENT: hearing intact, clear oral mucosa, dentition normal - Neck Neck: Present: supple, normal ROM - Respiratory Respiratory effort: normal Respiratory: bilateral: CTA - Cardiovascular Rhythm: regular Heart Sounds: Present: S1 & S2. Absent: gallop, rub - Extremities Extremities: no ischemia, No edema, Full ROM - Abdominal General gastrointestinal: soft, non-tender, non-distended, normal bowel sounds - Integumentary Integumentary: Present: clear, warm, dry - Neurologic Neurologic: CNII-XII intact, moves all extremities Results - Labs CBC & Chem 7: 07/13/16 04:40 07/13/16 04:40 Labs: Laboratory Last Values WBC 14.0 K/mm3 (4.5-11.0) H 07/13/16 04:40 RBC 3.50 M/mm3 (3.65-5.03) L 07/13/16 04:40 Hgb 9.3 gm/dl (10.1-14.3) L 07/13/16 04:40 Hct 29.3 % (30.3-42.9) L 07/13/16 04:40 MCV 85 fl (79-97) 07/13/16 04:40 MCH 27 pg (28-32) L 07/13/16 04:40 MCHC 32 % (30-34) 07/13/16 04:40 RDW 17.3 % (13.2-15.2) H 07/13/16 04:40 Plt Count 277 K/mm3 (140-440) D 07/13/16 04:40 Lymph % (Auto) 4.9 % (13.4-35.0) L 07/13/16 04:40 [place] % (Auto) 4.8 % (0.0-7.3) 07/13/16 04:40 Eos % (Auto) 0.0 % (0.0-4.3) 07/13/16 04:40 Baso % (Auto) 0.3 % (0.0-1.8) 07/13/16 04:40 Lymph # 0.7 K/mm3 (1.2-5.4) L 07/13/16 04:40 [place] # 0.7 K/mm3 (0.0-0.8) 07/13/16 04:40 Eos # 0.0 K/mm3 (0.0-0.4) 07/13/16 04:40 Baso # 0.0 K/mm3 (0.0-0.1) 07/13/16 04:40 Add Manual Diff Complete 07/13/16 04:40 Total Counted 100 07/13/16 04:40 Seg Neutrophils % 90.0 % (40.0-70.0) H 07/13/16 04:40 Seg Neuts % (Manual) 93.0 % (40.0-70.0) H 07/13/16 04:40 Band Neutrophils % 0 % 07/13/16 04:40 Lymphocytes % (Manual) 5.0 % (13.4-35.0) L 07/13/16 04:40 Reactive Lymphs % (Man) 0 % 07/13/16 04:40 Monocytes % (Manual) 2.0 % (0.0-7.3) 07/13/16 04:40 Eosinophils % (Manual) 0 % (0.0-4.3) 07/13/16 04:40 Basophils % (Manual) 0 % (0.0-1.8) 07/13/16 04:40 Metamyelocytes % 0 % 07/13/16 04:40 Myelocytes % 0 % 07/13/16 04:40 Promyelocytes % 0 % 07/13/16 04:40 Blast Cells % 0 % 07/13/16 04:40 Nucleated RBC % Not Reportable 07/13/16 04:40 Seg Neutrophils # 12.6 K/mm3 (1.8-7.7) H 07/13/16 04:40 Seg Neutrophils # Man 13.0 K/mm3 (1.8-7.7) H 07/13/16 04:40 Band Neutrophils # 0.0 K/mm3 07/13/16 04:40 Lymphocytes # (Manual) 0.7 K/mm3 (1.2-5.4) L 07/13/16 04:40 Abs React Lymphs (Man) 0.0 K/mm3 07/13/16 04:40 Monocytes # (Manual) 0.3 K/mm3 (0.0-0.8) 07/13/16 04:40 Eosinophils # (Manual) 0.0 K/mm3 (0.0-0.4) 07/13/16 04:40 Basophils # (Manual) 0.0 K/mm3 (0.0-0.1) 07/13/16 04:40 Metamyelocytes # 0.0 K/mm3 07/13/16 04:40 Myelocytes # 0.0 K/mm3 07/13/16 04:40 Promyelocytes # 0.0 K/mm3 07/13/16 04:40 Blast Cells # 0.0 K/mm3 07/13/16 04:40 WBC Morphology Not Reportable 07/13/16 04:40 Hypersegmented Neuts Not Reportable 07/13/16 04:40 Hyposegmented Neuts Not Reportable 07/13/16 04:40 Hypogranular Neuts Not Reportable 07/13/16 04:40 Smudge Cells Not Reportable 07/13/16 04:40 Toxic Granulation Not Reportable 07/13/16 04:40 Toxic Vacuolation Not Reportable 07/13/16 04:40 Dohle Bodies Not Reportable 07/13/16 04:40 Pelger-Huet Anomaly Not Reportable 07/13/16 04:40 Shagu[place]a Rods Not Reportable 07/13/16 04:40 Platelet Estimate Appears normal 07/13/16 04:40 Clumped Platelets Not Reportable 07/13/16 04:40 Plt Clumps, EDTA Not Reportable 07/13/16 04:40 Large Platelets Not Reportable 07/13/16 04:40 Giant Platelets Not Reportable 07/13/16 04:40 Platelet Satelliting Not Reportable 07/13/16 04:40 Plt Morphology Comment Not Reportable 07/13/16 04:40 RBC Morphology Not Reportable 07/13/16 04:40 Dimorphic RBCs Not Reportable 07/13/16 04:40 Polychromasia Not Reportable 07/13/16 04:40 Hypochromasia Not Reportable 07/13/16 04:40 Poikilocytosis Not Reportable 07/13/16 04:40 Anisocytosis 1+ 07/13/16 04:40 Microcytosis Not Reportable 07/13/16 04:40 Macrocytosis Not Reportable 07/13/16 04:40 Spherocytes Not Reportable 07/13/16 04:40 Pappenheimer Bodies Not Reportable 07/13/16 04:40 Sickle Cells Not Reportable 07/13/16 04:40 Target Cells Not Reportable 07/13/16 04:40 Tear Drop Cells Not Reportable 07/13/16 04:40 Ovalocytes Few 07/13/16 04:40 Helmet Cells Not Reportable 07/13/16 04:40 Pérez-Tarina Bodies Not Reportable 07/13/16 04:40 [place] Rings Not Reportable 07/13/16 04:40 Radha Cells Not Reportable 07/13/16 04:40 Bite Cells Not Reportable 07/13/16 04:40 Crenated Cell Not Reportable 07/13/16 04:40 Elliptocytes Not Reportable 07/13/16 04:40 Acanthocytes (Spur) Not Reportable 07/13/16 04:40 Rouleaux Not Reportable 07/13/16 04:40 Hemoglobin C Crystals Not Reportable 07/13/16 04:40 Schistocytes Not Reportable 07/13/16 04:40 Malaria parasites Not Reportable 07/13/16 04:40 Kaushik Bodies Not Reportable 07/13/16 04:40 Hem Pathologist Commnt No 07/13/16 04:40 D-Dimer 751.80 ng/mlDDU (0-234) H 07/11/16 12:22 POC ABG pH 7.452 (7.35-7.45) H 07/12/16 05:22 POC ABG pCO2 29.6 (35-45) L 07/12/16 05:22 POC ABG pO2 100 (80-105) 07/12/16 05:22 POC ABG HCO3 20.7 07/12/16 05:22 POC ABG Total CO2 22 07/12/16 05:22 POC ABG O2 Sat 98 07/12/16 05:22 POC ABG Base Excess -3 07/12/16 05:22 FiO2 21 % 07/12/16 05:22 Sodium 151 mmol/L (137-145) H 07/13/16 04:40 Potassium 4.2 mmol/L (3.6-5.0) 07/13/16 04:40 Chloride 109.3 mmol/L (98-107) H 07/13/16 04:40 Carbon Dioxide 22 mmol/L (22-30) 07/13/16 04:40 Anion Gap 24 mmol/L 07/13/16 04:40 BUN 59 mg/dL (7-17) H 07/13/16 04:40 Creatinine 4.0 mg/dL (0.7-1.2) H 07/13/16 04:40 Estimated GFR 13 ml/min 07/13/16 04:40 BUN/Creatinine Ratio 14.75 % 07/13/16 04:40 Glucose 63 mg/dL (65-100) L 07/13/16 04:40 POC Glucose 141 (70-105) H 07/13/16 08:03 Lactic Acid 1.3 mmol/L (0.7-2.0) 07/11/16 12:22 Calcium 7.7 mg/dL (8.4-10.2) L 07/13/16 04:40 Phosphorus 2.8 mg/dL (2.5-4.5) 07/11/16 12:22 Magnesium 1.9 mg/dL (1.7-2.3) 07/11/16 12:22 Total Bilirubin < 0.2 mg/dL (0.1-1.2) 07/10/16 06:43 AST 17 units/L (5-40) 07/10/16 06:43 ALT 9 units/L (7-56) 07/10/16 06:43 Alkaline Phosphatase 62 units/L (35-129) 07/10/16 06:43 Total Creatine Kinase 131 units/L (30-135) 07/11/16 12:22 CK-MB (CK-2) 2.0 ng/mL (0.0-4.0) 07/11/16 12:22 CK-MB (CK-2) Rel Index 1.5 (0-4) 07/11/16 12:22 Troponin T < 0.010 ng/mL (0.00-0.029) 07/11/16 12:22 Total Protein 6.7 g/dL (6.3-8.2) 07/10/16 06:43 Albumin 3.5 g/dL (3.9-5) L 07/10/16 06:43 Albumin/Globulin Ratio 1.1 % 07/10/16 06:43 TSH 8.090 mlU/mL (0.270-4.200) H 07/05/16 05:08 Urine Color Straw (Yellow) 07/06/16 01:18 Urine Turbidity Clear (Clear) 07/06/16 01:18 Urine pH 6.0 (5.0-7.0) 07/06/16 01:18 Ur Specific [place] 1.003 (1.003-1.030) 07/06/16 01:18 Urine Protein <15 mg/dl mg/dL (Negative) 07/06/16 01:18 Urine Glucose (UA) Neg mg/dL (Negative) 07/06/16 01:18 Urine Ketones Neg mg/dL (Negative) 07/06/16 01:18 Urine Blood Neg (Negative) 07/06/16 01:18 Urine Nitrite Neg (Negative) 07/06/16 01:18 Urine Bilirubin Neg (Negative) 07/06/16 01:18 Urine Urobilinogen < 2.0 mg/dL (<2.0) 07/06/16 01:18 Ur Leukocyte Esterase Mod (Negative) 07/06/16 01:18 Urine WBC (Auto) 7.0 /HPF (0.0-6.0) H 07/06/16 01:18 Urine RBC (Auto) 3.0 /HPF (0.0-6.0) 07/06/16 01:18 U Epithel Cells (Auto) 1.0 /HPF (0-13.0) 06/30/16 11:34 Urine Bacteria (Auto) 1+ /HPF (Negative) 06/30/16 11:34 Urine Eosinophils None seen (None Seen) 07/06/16 01:18 Urine Creatinine 36.6 mg/dL (0.1-20.0) H 07/06/16 01:18 Urine Microalbumin 6.5 mg/dL (0.1-34.0) 07/06/16 01:18 Microalb/Creat Ratio 177.5 ug/mg 07/06/16 01:18 Urine Sodium 28 mEq/L 07/06/16 01:18 Urine Opiates Screen Presumptive negative 06/30/16 11:34 Urine Methadone Screen Presumptive negative 06/30/16 11:34 Acetaminophen < 15.0 ug/mL (10.0-30.0) 06/30/16 12:01 Ur Barbiturates Screen Presumptive negative 06/30/16 11:34 Ur Phencyclidine Scrn Presumptive negative 06/30/16 11:34 Ur Amphetamines Screen Presumptive negative 06/30/16 11:34 U Benzodiazepines Scrn Presumptive negative 06/30/16 11:34 Urine Cocaine Screen Presumptive negative 06/30/16 11:34 U Marijuana (THC) Screen Presumptive negative 06/30/16 11:34 Drugs of Abuse Note Disclamer 06/30/16 11:34 Plasma/Serum Alcohol < 0.01 gm% (0-0.07) 06/30/16 12:01
[2016-07-13 09:21] LABS: ISTAT Base Excess 1; ISTAT HCO3 24.5; ISTAT PCO2 33.4 (35-45); ISTAT PH 7.475 (7.35-7.45); ISTAT PO2 110 (80-105); ISTAT SO2 99; ISTAT TCO2 26
[2016-07-13] MEDS: NORMODYNE PO SCH ×2 (09:25→21:58)
[2016-07-13] MEDS: NOVOLOG SUB-Q SCH ×4 (09:26→22:19)
[2016-07-13] MEDS: PEPCID IV SCH (09:26)
[2016-07-13] MEDS: NEURONTIN PO SCH ×2 (09:26→21:57)
--- NOTE | 2016-07-13 09:48 | Progress Note ---
Assessment and Plan Will change IV fluids today Strict input and output documentation Continue vent support. Increase Labetalol to 300mg bid Will follow - Patient Problems (1) Hyperkalemia Current Visit: Yes Status: Acute (2) GABRIELA (acute kidney injury) Current Visit: Yes Status: Acute (3) Chronic renal insufficiency Current Visit: Yes Status: Acute (4) Acute respiratory failure Current Visit: Yes Status: Acute (5) Angioedema Current Visit: Yes Status: Acute (6) Chronic anemia Current Visit: Yes Status: Acute (7) Hypertension Current Visit: Yes Status: Acute Subjective Date of service: 07/13/16 Principal diagnosis: Acute Respiratory Failure; Angioedema Interval history: Seen in follow up for renal insufficiency. 70-year-old woman with a history of dementia, CKD 3-4, anemia of chronic disease , hypothyroidism, hypertension, type 2 diabetes mellitus, bipolar disorder and arthritis who presented on 06/30/2016 with mental health concerns per family. Noted unresponsive and found to have angioedema on 07/11/16 requiring intubation. Yesterday,she had hyperkalemia requiring kayexalate. Objective - Vital Signs Vital signs: Vital Signs - 12hr Temp Pulse Resp BP Pulse Ox 99 F 88 12 163/66 100 07/13/16 07:47 07/13/16 09:25 07/13/16 09:00 07/13/16 09:25 07/13/16 09:00 Intake & Output 07/11/16 07/12/16 07/13/16 07/14/16 06:59 06:59 06:59 06:59 Intake Total 469 91 8930 180 Output Total 2 250 270 255 Balance 358 -210 760 -75 Weight 77 kg 76.1 kg 77.5 kg - General Appearance General appearance: well-developed, appears stated age EENT: PERRL, mucous membranes moist Neck: no carotid bruit, supple Respiratory: Present: Clear to Ascultation, Decreased Breath Sounds Cardiology: regular, normal heart rate, S1S2 Gastrointestinal: normoactive bowel sounds, distended Integumentary: no rash, warm and dry Neurologic: no focal deficit, reflexes 2+ and symmetric Musculoskeletal: decreased ROM - Lab 07/13/16 04:40 07/13/16 04:40 Most recent lab results Calcium 7.7 mg/dL (8.4-10.2) L 07/13/16 04:40 Phosphorus 2.8 mg/dL (2.5-4.5) 07/11/16 12:22 Magnesium 1.9 mg/dL (1.7-2.3) 07/11/16 12:22 Urine Creatinine 36.6 mg/dL (0.1-20.0) H 07/06/16 01:18 Urine Sodium 28 mEq/L 07/06/16 01:18 Current Medications Lipase/Protease/Amylase ([place] 10,500 Unit) 1 each FEEDTUBE PRN PRN PRN Reason: For Clogged Feeding Tube Dextrose (D50w (25gm)) 50 ml IV PRN PRN PRN Reason: Hypoglycemia Diphenhydramine HCl (Benadryl) 25 mg IV Q8H [facility] Last Admin: 07/13/16 03:14 Dose: 25 mg Famotidine (Pepcid) 20 mg IV DAILY [facility] Last Admin: 07/13/16 09:26 Dose: 20 mg Gabapentin (Neurontin) 100 mg PO BID [facility] Last Admin: 07/13/16 09:26 Dose: 100 mg Heparin Sodium (Porcine) (Heparin) 5,000 unit SUB-Q Q8HR [facility] Last Admin: 07/13/16 05:31 Dose: 5,000 unit Hydralazine HCl (Apresoline) 50 mg FEEDTUBE Q8HR [facility] Last Admin: 07/13/16 05:23 Dose: 50 mg Hydrophilic Ointment (Vaseline Lip Therapy) 1 applic TP Q2HR PRN PRN Reason: Dry Lips Sodium Bicarbonate 50 meq/ (Sodium Chloride) 1,050 mls @ 80 mls/hr IV DIRECT [facility] Last Admin: 07/12/16 10:20 Dose: 80 mls/hr Insulin Aspart (Novolog) 0 units SUB-Q ACHS RACHEL PRN Reason: Protocol Last Admin: 07/13/16 09:26 Dose: Not Given Insulin Human Isoph/Insulin Regular (Novolin 70/30) 45 unit SUB-Q QHS [facility] Last Admin: 07/12/16 23:36 Dose: 45 unit Labetalol HCl (Normodyne) 200 mg PO BID [facility] Last Admin: 07/13/16 09:25 Dose: 200 mg Levothyroxine Sodium (Synthroid) 150 mcg PO DAILY@0600 [facility] Last Admin: 07/13/16 05:24 Dose: 150 mcg Methylprednisolone Sodium Succinate (Solu-Medrol) 60 mg IV Q6HR [facility] Last Admin: 07/13/16 05:23 Dose: 60 mg Multi-Ingred Cream/Lotion/Oil/Oint (Artificial Tears Ophth Oint) 1 applic OU Q4HR PRN PRN Reason: Dry Eye(s) Olanzapine (Zyprexa) 10 mg PO HS [facility] Last Admin: 07/12/16 21:55 Dose: 10 mg Simple Syrup (Simple Syrup) 15 ml FEEDTUBE PRN PRN PRN Reason: Hypoglycemia Simple Syrup (Simple Syrup) 30 ml FEEDTUBE PRN PRN PRN Reason: Hypoglycemia Sodium Bicarbonate (Sodium Bicarbonate) 325 mg FEEDTUBE PRN PRN PRN Reason: For Clogged Feeding Tube
--- NOTE | 2016-07-13 10:00 | XRay Report ---
Single view chest: Compared to 07/12/16. History: Followup of respiratory failure. Findings: Normal cardiomediastinal silhouette. Trachea is midline. No consolidation, pneumothorax or pleural effusion. Impression: No acute cardiopulmonary findings.
--- NOTE | 2016-07-13 11:47 | Progress Note ---
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 Plan to address problem: - up-titrate orol hydralazine - labetolol added - will give prn apressoline order (4) Acute respiratory failure Current Visit: Yes Status: Acute Plan to address problem: - continue scheduled benadryl - continue pepcid q12h - continue solumedrol at current dose - EXTUBATE - prn BIPAP post extubation - continue bronchodilators and pulmonary toilet - continue aspiration precautions / VAP bundles (5) Angioedema Current Visit: Yes Status: Acute Plan to address problem: - no obvious external edema - continue anti-histamine therapy and steroids (6) Dysphagia Current Visit: Yes Status: Acute Plan to address problem: - to begin enteral nutrition (7) Discharge planning issues Current Visit: No Status: Acute Plan to address problem: - hopefully responds to therapy quickly and can be transferred back to medical floor ..she remains critically ill on life sustaining interventions including MVS; at high risk for further deterioration including ...35' CCT Subjective Date of service: 07/13/16 Principal diagnosis: Acute Respiratory Failure; Angioedema Interval history: Seen and examined at bedside; 24 hour events reviewed; nursing and respiratory care staff consulted; no adverse overnight events reported to me; much better cuff leak today; remains somnolent; no emesis or overt aspiration Objective Vital Signs - 12hr 07/13/16 07/13/16 07/13/16 00:00 00:30 00:50 Temperature 98.4 F Pulse Rate 96 H 91 H 89 Respiratory 12 12 11 L Rate Blood Pressure 132/59 132/59 132/59 O2 Sat by Pulse 100 100 100 Oximetry 07/13/16 07/13/16 07/13/16 01:00 01:30 02:00 Temperature Pulse Rate 87 95 H 98 H Respiratory 12 11 L 12 Rate Blood Pressure 134/62 134/62 172/80 O2 Sat by Pulse 100 100 100 Oximetry 07/13/16 07/13/16 07/13/16 02:30 03:00 03:30 Temperature Pulse Rate 96 H 95 H 98 H Respiratory 11 L 14 11 L Rate Blood Pressure 172/80 170/77 170/77 O2 Sat by Pulse 100 100 100 Oximetry 07/13/16 07/13/16 07/13/16 04:00 04:02 04:24 Temperature 98.2 F Pulse Rate 82 83 Respiratory 12 14 Rate Blood Pressure 192/78 192/78 O2 Sat by Pulse 100 100 Oximetry 07/13/16 07/13/16 07/13/16 04:30 05:00 05:23 Temperature Pulse Rate 84 96 H 92 H Respiratory 11 L 9 L Rate Blood Pressure 192/78 203/77 174/63 O2 Sat by Pulse 100 100 Oximetry 07/13/16 07/13/16 07/13/16 05:30 05:56 06:00 Temperature Pulse Rate 84 84 84 Respiratory 14 11 L Rate Blood Pressure 174/63 147/57 147/57 O2 Sat by Pulse 100 100 100 Oximetry 07/13/16 07/13/16 07/13/16 06:24 06:30 07:00 Temperature Pulse Rate 79 89 93 H Respiratory 16 13 11 L Rate Blood Pressure 147/57 147/57 158/66 O2 Sat by Pulse 100 100 100 Oximetry 07/13/16 07/13/16 07/13/16 07:30 07:40 07:47 Temperature 99 F Pulse Rate 95 H 94 H Respiratory 11 L Rate Blood Pressure 158/66 158/66 O2 Sat by Pulse 100 100 Oximetry 07/13/16 07/13/16 07/13/16 08:00 08:10 08:30 Temperature Pulse Rate 88 80 87 Respiratory 12 11 L 10 L Rate Blood Pressure 175/75 175/75 175/75 O2 Sat by Pulse 100 100 100 Oximetry 07/13/16 07/13/16 07/13/16 09:00 09:06 09:25 Temperature Pulse Rate 81 80 88 Respiratory 12 14 Rate Blood Pressure 163/66 163/66 163/66 O2 Sat by Pulse 100 100 Oximetry 07/13/16 07/13/16 07/13/16 09:30 10:00 10:13 Temperature Pulse Rate 76 86 86 Respiratory 11 L 12 11 L Rate Blood Pressure 163/66 166/69 166/69 O2 Sat by Pulse 100 100 100 Oximetry 07/13/16 07/13/16 07/13/16 10:20 10:30 11:00 Temperature Pulse Rate 84 90 Respiratory 11 L 13 12 Rate Blood Pressure 166/69 176/75 O2 Sat by Pulse 100 100 100 Oximetry 07/13/16 11:09 Temperature Pulse Rate 81 Respiratory Rate Blood Pressure 175/75 O2 Sat by Pulse 100 Oximetry Constitutional: no acute distress, lethargic Eyes: non-icteric ENT: oropharynx moist Neck: supple, no lymphadenopathy Effort: normal Ascultation: Bilateral: clear, diminished breath sounds Cardiovascular: regular rate and rhythm Gastrointestinal: normoactive bowel sounds, soft, non-tender, non-distended Integumentary: normal Extremities: no cyanosis, no edema, pulses normal, no ischemia or petechiae Neurologic: non-focal exam (grossly), pupils equal and round, motor strength normal and Psychiatric: other (unable to assess due to mental status) CBC and BMP: 07/13/16 04:40 07/13/16 04:40 ABG, PT/INR, D-dimer: ABG POC ABG pH 7.475 (7.35-7.45) H 07/13/16 09:17 POC ABG pCO2 33.4 (35-45) L 07/13/16 09:17 POC ABG pO2 110 (80-105) H 07/13/16 09:17 POC ABG HCO3 24.5 07/13/16 09:17 POC ABG Total CO2 26 07/13/16 09:17 POC ABG O2 Sat 99 07/13/16 09:17 PT/INR, D-dimer D-Dimer 751.80 ng/mlDDU (0-234) H 07/11/16 12:22 Abnormal lab findings: Abnormal Labs 07/03/16 07/03/16 07/04/16 14:34 14:34 06:21 WBC 3.9 L RBC 3.16 L 3.04 L Hgb 8.5 L 8.0 L Hct 26.8 L 25.6 L MCH 27 L 26 L RDW 16.5 H 16.2 H Plt Count Lymph % (Auto) [place] % (Auto) 10.7 H 10.7 H Lymph # 1.0 L Seg Neutrophils % Seg Neuts % (Manual) Lymphocytes % (Manual) Seg Neutrophils # Seg Neutrophils # Man Lymphocytes # (Manual) D-Dimer POC ABG pH POC ABG pCO2 POC ABG pO2 Sodium Potassium Chloride 107.6 H Carbon Dioxide BUN 27 H Creatinine 2.6 H Glucose POC Glucose Calcium 8.0 L Albumin TSH Urine WBC (Auto) Urine Creatinine 07/04/16 07/04/16 07/04/16 06:21 11:30 16:33 WBC RBC Hgb Hct MCH RDW Plt Count Lymph % (Auto) [place] % (Auto) Lymph # Seg Neutrophils % Seg Neuts % (Manual) Lymphocytes % (Manual) Seg Neutrophils # Seg Neutrophils # Man Lymphocytes # (Manual) D-Dimer POC ABG pH POC ABG pCO2 POC ABG pO2 Sodium Potassium Chloride 107.4 H Carbon Dioxide 21 L BUN 27 H Creatinine 2.7 H Glucose POC Glucose 110 H 106 H Calcium 7.8 L Albumin TSH Urine WBC (Auto) Urine Creatinine 07/05/16 07/05/16 07/05/16 05:08 05:08 05:08 WBC 4.0 L RBC 2.87 L Hgb 7.7 L Hct 24.2 L MCH 27 L RDW 16.0 H Plt Count Lymph % (Auto) [place] % (Auto) Lymph # Seg Neutrophils % Seg Neuts % (Manual) Lymphocytes % (Manual) Seg Neutrophils # Seg Neutrophils # Man Lymphocytes # (Manual) D-Dimer POC ABG pH POC ABG pCO2 POC ABG pO2 Sodium Potassium Chloride Carbon Dioxide 21 L BUN 32 H Creatinine 3.7 H Glucose POC Glucose Calcium 7.8 L Albumin TSH 8.090 H Urine WBC (Auto) Urine Creatinine 07/05/16 07/06/16 07/06/16 11:45 01:18 01:18 WBC RBC Hgb 8.3 L Hct 25.9 L MCH RDW Plt Count Lymph % (Auto) [place] % (Auto) Lymph # Seg Neutrophils % Seg Neuts % (Manual) Lymphocytes % (Manual) Seg Neutrophils # Seg Neutrophils # Man Lymphocytes # (Manual) D-Dimer POC ABG pH POC ABG pCO2 POC ABG pO2 Sodium Potassium Chloride Carbon Dioxide BUN Creatinine Glucose POC Glucose Calcium Albumin TSH Urine WBC (Auto) 7.0 H Urine Creatinine 36.6 H 07/06/16 07/06/16 07/06/16 05:55 05:55 16:07 WBC 3.0 L RBC 2.79 L Hgb 7.5 L Hct 23.5 L MCH 27 L RDW 16.5 H Plt Count Lymph % (Auto) [place] % (Auto) Lymph # Seg Neutrophils % Seg Neuts % (Manual) Lymphocytes % (Manual) Seg Neutrophils # Seg Neutrophils # Man Lymphocytes # (Manual) D-Dimer POC ABG pH POC ABG pCO2 POC ABG pO2 Sodium Potassium Chloride 109.3 H Carbon Dioxide 20 L BUN 32 H Creatinine 3.4 H Glucose POC Glucose 117 H Calcium 7.5 L Albumin TSH Urine WBC (Auto) Urine Creatinine 07/07/16 07/07/16 07/08/16 06:19 16:13 00:09 WBC RBC Hgb Hct MCH RDW Plt Count Lymph % (Auto) [place] % (Auto) Lymph # Seg Neutrophils % Seg Neuts % (Manual) Lymphocytes % (Manual) Seg Neutrophils # Seg Neutrophils # Man Lymphocytes # (Manual) D-Dimer POC ABG pH POC ABG pCO2 POC ABG pO2 Sodium Potassium Chloride 111.1 H Carbon Dioxide 20 L BUN 31 H Creatinine 3.1 H Glucose POC Glucose 108 H 134 H Calcium 8.0 L Albumin TSH Urine WBC (Auto) Urine Creatinine 07/08/16 07/08/16 07/08/16 11:39 16:31 21:22 WBC RBC Hgb Hct MCH RDW Plt Count Lymph % (Auto) [place] % (Auto) Lymph # Seg Neutrophils % Seg Neuts % (Manual) Lymphocytes % (Manual) Seg Neutrophils # Seg Neutrophils # Man Lymphocytes # (Manual) D-Dimer POC ABG pH POC ABG pCO2 POC ABG pO2 Sodium Potassium Chloride Carbon Dioxide BUN Creatinine Glucose POC Glucose 119 H 130 H 152 H Calcium Albumin TSH Urine WBC (Auto) Urine Creatinine 07/09/16 07/09/16 07/09/16 05:52 05:52 06:02 WBC RBC 3.55 L Hgb 9.4 L Hct MCH 27 L RDW 17.1 H Plt Count Lymph % (Auto) [place] % (Auto) Lymph # Seg Neutrophils % Seg Neuts % (Manual) Lymphocytes % (Manual) Seg Neutrophils # Seg Neutrophils # Man Lymphocytes # (Manual) D-Dimer POC ABG pH POC ABG pCO2 POC ABG pO2 Sodium 147 H Potassium 5.4 H Chloride 112.8 H Carbon Dioxide 21 L BUN 30 H Creatinine 2.5 H Glucose 21 L* POC Glucose < 40 L Calcium Albumin TSH Urine WBC (Auto) Urine Creatinine 07/09/16 07/09/16 07/10/16 11:31 16:50 05:23 WBC RBC Hgb Hct MCH RDW Plt Count Lymph % (Auto) [place] % (Auto) Lymph # Seg Neutrophils % Seg Neuts % (Manual) Lymphocytes % (Manual) Seg Neutrophils # Seg Neutrophils # Man Lymphocytes # (Manual) D-Dimer POC ABG pH POC ABG pCO2 POC ABG pO2 Sodium Potassium Chloride Carbon Dioxide BUN Creatinine Glucose POC Glucose 114 H 149 H < 40 L Calcium Albumin TSH Urine WBC (Auto) Urine Creatinine 07/10/16 07/10/16 07/10/16 06:03 06:43 06:43 WBC RBC 2.90 L Hgb 7.7 L Hct 25.0 L MCH 27 L RDW 17.0 H Plt Count Lymph % (Auto) [place] % (Auto) 10.4 H Lymph # 1.1 L Seg Neutrophils % Seg Neuts % (Manual) Lymphocytes % (Manual) Seg Neutrophils # Seg Neutrophils # Man Lymphocytes # (Manual) D-Dimer POC ABG pH POC ABG pCO2 POC ABG pO2 Sodium 148 H Potassium 5.1 H Chloride 111.7 H Carbon Dioxide 20 L BUN 31 H Creatinine 2.4 H Glucose POC Glucose 211 H Calcium 8.0 L Albumin 3.5 L TSH Urine WBC (Auto) Urine Creatinine 07/10/16 07/11/16 07/11/16 14:55 05:37 05:47 WBC RBC Hgb 7.9 L Hct 25.5 L MCH RDW Plt Count Lymph % (Auto) [place] % (Auto) Lymph # Seg Neutrophils % Seg Neuts % (Manual) Lymphocytes % (Manual) Seg Neutrophils # Seg Neutrophils # Man Lymphocytes # (Manual) D-Dimer POC ABG pH POC ABG pCO2 POC ABG pO2 Sodium Potassium Chloride Carbon Dioxide BUN Creatinine Glucose POC Glucose < 40 L > 500 H Calcium Albumin TSH Urine WBC (Auto) Urine Creatinine 07/11/16 07/11/16 07/11/16 05:56 07:42 07:48 WBC RBC Hgb Hct MCH RDW Plt Count Lymph % (Auto) [place] % (Auto) Lymph # Seg Neutrophils % Seg Neuts % (Manual) Lymphocytes % (Manual) Seg Neutrophils # Seg Neutrophils # Man Lymphocytes # (Manual) D-Dimer POC ABG pH POC ABG pCO2 POC ABG pO2 Sodium Potassium Chloride Carbon Dioxide BUN Creatinine Glucose POC Glucose 262 H 56 L 54 L Calcium Albumin TSH Urine WBC (Auto) Urine Creatinine 07/11/16 07/11/16 07/11/16 08:34 08:50 09:53 WBC RBC Hgb Hct MCH RDW Plt Count Lymph % (Auto) [place] % (Auto) Lymph # Seg Neutrophils % Seg Neuts % (Manual) Lymphocytes % (Manual) Seg Neutrophils # Seg Neutrophils # Man Lymphocytes # (Manual) D-Dimer POC ABG pH POC ABG pCO2 31.1 L POC ABG pO2 108 H Sodium Potassium Chloride Carbon Dioxide BUN Creatinine Glucose POC Glucose 110 H 68 L Calcium Albumin TSH Urine WBC (Auto) Urine Creatinine 07/11/16 07/11/16 07/11/16 11:48 12:22 12:22 WBC 11.6 H RBC Hgb Hct MCH 27 L RDW 17.2 H Plt Count Lymph % (Auto) [place] % (Auto) Lymph # Seg Neutrophils % Seg Neuts % (Manual) 91.0 H Lymphocytes % (Manual) 5.0 L Seg Neutrophils # 10.8 H Seg Neutrophils # Man 10.6 H Lymphocytes # (Manual) 0.6 L D-Dimer 751.80 H POC ABG pH POC ABG pCO2 POC ABG pO2 Sodium Potassium Chloride Carbon Dioxide BUN Creatinine Glucose POC Glucose 118 H Calcium Albumin TSH Urine WBC (Auto) Urine Creatinine 07/11/16 07/11/16 07/11/16 12:22 12:29 15:23 WBC RBC Hgb Hct MCH RDW Plt Count Lymph % (Auto) [place] % (Auto) Lymph # Seg Neutrophils % Seg Neuts % (Manual) Lymphocytes % (Manual) Seg Neutrophils # Seg Neutrophils # Man Lymphocytes # (Manual) D-Dimer POC ABG pH POC ABG pCO2 28.4 L POC ABG pO2 Sodium Potassium 6.1 H* Chloride 109.4 H Carbon Dioxide 18 L BUN 30 H Creatinine 2.1 H Glucose 126 H POC Glucose 204 H Calcium Albumin TSH Urine WBC (Auto) Urine Creatinine 07/11/16 07/11/16 07/11/16 17:27 17:55 21:42 WBC RBC Hgb Hct MCH RDW Plt Count Lymph % (Auto) [place] % (Auto) Lymph # Seg Neutrophils % Seg Neuts % (Manual) Lymphocytes % (Manual) Seg Neutrophils # Seg Neutrophils # Man Lymphocytes # (Manual) D-Dimer POC ABG pH POC ABG pCO2 POC ABG pO2 Sodium 146 H Potassium 6.5 H* Chloride 109.7 H Carbon Dioxide 20 L BUN 32 H Creatinine 2.4 H Glucose 167 H POC Glucose 433 H 142 H Calcium Albumin TSH Urine WBC (Auto) Urine Creatinine 07/12/16 07/12/16 07/12/16 04:34 04:34 05:22 WBC 14.0 H RBC Hgb Hct MCH 27 L RDW 17.6 H Plt Count 113 L Lymph % (Auto) [place] % (Auto) Lymph # Seg Neutrophils % Seg Neuts % (Manual) 87.0 H Lymphocytes % (Manual) 11.0 L Seg Neutrophils # Seg Neutrophils # Man 12.2 H Lymphocytes # (Manual) D-Dimer POC ABG pH 7.452 H POC ABG pCO2 29.6 L POC ABG pO2 Sodium Potassium 6.8 H* Chloride 110.2 H Carbon Dioxide 16 L BUN 43 H Creatinine 2.9 H Glucose 113 H POC Glucose Calcium Albumin TSH Urine WBC (Auto) Urine Creatinine 07/12/16 07/12/16 07/12/16 13:24 17:28 21:11 WBC RBC Hgb Hct MCH RDW Plt Count Lymph % (Auto) [place] % (Auto) Lymph # Seg Neutrophils % Seg Neuts % (Manual) Lymphocytes % (Manual) Seg Neutrophils # Seg Neutrophils # Man Lymphocytes # (Manual) D-Dimer POC ABG pH POC ABG pCO2 POC ABG pO2 Sodium 150 H Potassium Chloride 108.9 H Carbon Dioxide 21 L BUN 52 H Creatinine 3.7 H Glucose 143 H POC Glucose 148 H 134 H Calcium 8.0 L Albumin TSH Urine WBC (Auto) Urine Creatinine 07/12/16 07/13/16 07/13/16 21:50 04:40 04:40 WBC 14.0 H RBC 3.50 L Hgb 9.3 L Hct 29.3 L MCH 27 L RDW 17.3 H Plt Count Lymph % (Auto) 4.9 L [place] % (Auto) Lymph # 0.7 L Seg Neutrophils % 90.0 H Seg Neuts % (Manual) 93.0 H Lymphocytes % (Manual) 5.0 L Seg Neutrophils # 12.6 H Seg Neutrophils # Man 13.0 H Lymphocytes # (Manual) 0.7 L D-Dimer POC ABG pH POC ABG pCO2 POC ABG pO2 Sodium 151 H Potassium Chloride 109.3 H Carbon Dioxide BUN 59 H Creatinine 4.0 H Glucose 63 L POC Glucose 156 H Calcium 7.7 L Albumin TSH Urine WBC (Auto) Urine Creatinine 07/13/16 07/13/16 07/13/16 06:10 06:40 08:03 WBC RBC Hgb Hct MCH RDW Plt Count Lymph % (Auto) [place] % (Auto) Lymph # Seg Neutrophils % Seg Neuts % (Manual) Lymphocytes % (Manual) Seg Neutrophils # Seg Neutrophils # Man Lymphocytes # (Manual) D-Dimer POC ABG pH POC ABG pCO2 POC ABG pO2 Sodium Potassium Chloride Carbon Dioxide BUN Creatinine Glucose POC Glucose 68 L 176 H 141 H Calcium Albumin TSH Urine WBC (Auto) Urine Creatinine 07/13/16 09:17 WBC RBC Hgb Hct MCH RDW Plt Count Lymph % (Auto) [place] % (Auto) Lymph # Seg Neutrophils % Seg Neuts % (Manual) Lymphocytes % (Manual) Seg Neutrophils # Seg Neutrophils # Man Lymphocytes # (Manual) D-Dimer POC ABG pH 7.475 H POC ABG pCO2 33.4 L POC ABG pO2 110 H Sodium Potassium Chloride Carbon Dioxide BUN Creatinine Glucose POC Glucose Calcium Albumin TSH Urine WBC (Auto) Urine Creatinine Chest x-ray: image reviewed
[2016-07-13 14:20] LABS: ISTAT Base Excess 0; ISTAT HCO3 22.3; ISTAT PCO2 26.8 (35-45); ISTAT PH 7.529 (7.35-7.45); ISTAT PO2 70 (80-105); ISTAT SO2 96; ISTAT TCO2 23
[2016-07-13] MEDS ORDERED: APRESOLINE IV PRN (17:15)
[2016-07-14] MEDS: BENADRYL IV SCH ×4 (04:52→22:36)
[2016-07-14 05:29] LABS: Basophils % (Auto) 0.1 % (0.0-1.8); Hematocrit 25.3 % (30.3-42.9); Hemoglobin 8.1 gm/dl (10.1-14.3); Mean Corpuscular HGB Conc 32 % (30-34); Mean Corpuscular Hemoglobin 27 pg (28-32); Mean Corpuscular Volume 84 fl (79-97); Platelet Count 237 K/mm3 (140-440); Red Blood Count 3.01 M/mm3 (3.65-5.03); Red Cell Distribution Width 17.9 % (13.2-15.2); White Blood Count 8.6 K/mm3 (4.5-11.0)
[2016-07-14 05:45] LABS: BUN/Creatinine Ratio 17.08; Calcium 6.8 mg/dL (8.4-10.2); Chloride 107.3 mmol/L (98-107); Potassium 3.6 mmol/L (3.6-5.0)
[2016-07-14] MEDS: HEPARIN SUB-Q SCH ×3 (06:00→22:29)
[2016-07-14] MEDS: APRESOLINE FEEDTUBE SCH ×3 (06:02→22:27)
[2016-07-14] MEDS: SYNTHROID PO SCH (06:02)
[2016-07-14] MEDS: NOVOLOG SUB-Q SCH ×5 (08:00→23:01)
--- NOTE | 2016-07-14 08:43 | XRay Report ---
PORTABLE CHEST INDICATION: Followup respiratory failure. COMPARISON: Yesterday. FINDINGS: Portable, frontal chest radiograph, 2:34 AM, 07/14/2016 demonstrates interval extubation. Stable Dobbhoff tube looped in the stomach with its tip directed towards the GE junction. Stable normal cardiomediastinal silhouette, clear lungs, EKG leads and osseous structures. CONCLUSION: Interval extubation and clear lungs, as described. Thank you for the opportunity to participate in this patient's care.
--- NOTE | 2016-07-14 09:26 | Progress Note ---
Assessment and Plan Assessment and plan: 1. Acute hypoxic respiratory failure. Improved. BiPAP when necessary. Continue O2 for supportive care. 2. Angioedema. Patient is now extubated and doing well. We will obtain speech consultation for swallow evaluation. Also, patient will need BiPAP at night. 3. Urinary tract infection. Klebsiella. Treated. D/C'D IV Rocephin. 4. Acute on CKD stage IV. Etiology likely secondary to vasomotor nephropathy versus interstitial nephritis from initial treatment with Bactrim for UTI. Nephrology following. Follow-up BMP. 5. Hyperkalemia. Patient received Kayexalate, D5 and insulin. However, patient's potassium still remains elevated this morning at 6.8. Repeat Kayexalate, D5 and insulin. 6. Hypoglycemia. Resolved. Monitor blood glucose closely. Change IV fluid to normal saline. 7. Toxic metabolic encephalopathy. Continue to treat underlying causes. 8. Hypothyroidism. Continue Synthroid. 9. Hypertension, chronic. Continue antihypertensive medications and monitor. Hydralazine when necessary 10. DVT prophylaxis: SCDs, lovenox daily 11. Acute on chronic anemia of chronic disease: Monitor closely 12. Hypernatremia. Increase free water to 250 mL every 4 hours--very slightly improved 13. Metabolic acidosis. Resolved. Bicarbonate drip discontinued. 14. Left upper extremity swelling. Check ultrasound. The high probability of a clinically significant, sudden or life threatening deterioration of the [respiratory] system(s) required my full and direct attention, intervention and personal management. The aggregate critical care time was [31] minutes. This time is in addition to time spent performing reported procedures but includes the following: [x] Data Review and interpretation [x] Patient assessment and monitoring of vital signs [x] Documentation [x] Medication orders and management History Interval history: Patient is a 70-year-old woman with a history of dementia, CKD 3-4, anemia of chronic disease, hypothyroidism, hypertension, type 2 diabetes mellitus, bipolar disorder and arthritis who presented on 06/30/2016 with mental health concerns per family. Patient did not go home. She remained in the ER until 11/2015, until it was decided that she needed placement. Patient was noted to be unresponsive and found to have angioedema on 07/11/16 requiring intubation. Patient is now extubated. Hospitalist Physical - Constitutional Vitals: Temp Pulse Resp BP Pulse Ox 97.8 F 64 10 L 140/52 100 07/14/16 08:00 07/14/16 06:02 07/14/16 06:00 07/14/16 06:02 07/14/16 07:46 General appearance: Present: no acute distress, other (intubated and sedated) - EENT Eyes: Present: PERRL, EOM intact ENT: hearing intact, clear oral mucosa, dentition normal - Neck Neck: Present: supple, normal ROM - Respiratory Respiratory effort: normal Respiratory: bilateral: CTA - Cardiovascular Rhythm: regular Heart Sounds: Present: S1 & S2. Absent: gallop, rub - Extremities Extremities: no ischemia, No edema, Full ROM - Abdominal General gastrointestinal: soft, non-tender, non-distended, normal bowel sounds - Integumentary Integumentary: Present: clear, warm, dry - Neurologic Neurologic: CNII-XII intact, moves all extremities Results - Labs CBC & Chem 7: 07/14/16 04:21 07/14/16 04:21 Labs: Laboratory Last Values WBC 8.6 K/mm3 (4.5-11.0) 07/14/16 04:21 RBC 3.01 M/mm3 (3.65-5.03) L 07/14/16 04:21 Hgb 8.1 gm/dl (10.1-14.3) L 07/14/16 04:21 Hct 25.3 % (30.3-42.9) L 07/14/16 04:21 MCV 84 fl (79-97) 07/14/16 04:21 MCH 27 pg (28-32) L 07/14/16 04:21 MCHC 32 % (30-34) 07/14/16 04:21 RDW 17.9 % (13.2-15.2) H 07/14/16 04:21 Plt Count 237 K/mm3 (140-440) 07/14/16 04:21 Lymph % (Auto) 6.1 % (13.4-35.0) L 07/14/16 04:21 [place] % (Auto) 3.9 % (0.0-7.3) 07/14/16 04:21 Eos % (Auto) 0.0 % (0.0-4.3) 07/14/16 04:21 Baso % (Auto) 0.1 % (0.0-1.8) 07/14/16 04:21 Lymph # 0.5 K/mm3 (1.2-5.4) L 07/14/16 04:21 [place] # 0.3 K/mm3 (0.0-0.8) 07/14/16 04:21 Eos # 0.0 K/mm3 (0.0-0.4) 07/14/16 04:21 Baso # 0.0 K/mm3 (0.0-0.1) 07/14/16 04:21 Add Manual Diff Complete 07/13/16 04:40 Total Counted 100 07/13/16 04:40 Seg Neutrophils % 89.9 % (40.0-70.0) H 07/14/16 04:21 Seg Neuts % (Manual) 93.0 % (40.0-70.0) H 07/13/16 04:40 Band Neutrophils % 0 % 07/13/16 04:40 Lymphocytes % (Manual) 5.0 % (13.4-35.0) L 07/13/16 04:40 Reactive Lymphs % (Man) 0 % 07/13/16 04:40 Monocytes % (Manual) 2.0 % (0.0-7.3) 07/13/16 04:40 Eosinophils % (Manual) 0 % (0.0-4.3) 07/13/16 04:40 Basophils % (Manual) 0 % (0.0-1.8) 07/13/16 04:40 Metamyelocytes % 0 % 07/13/16 04:40 Myelocytes % 0 % 07/13/16 04:40 Promyelocytes % 0 % 07/13/16 04:40 Blast Cells % 0 % 07/13/16 04:40 Nucleated RBC % Not Reportable 07/13/16 04:40 Seg Neutrophils # 7.7 K/mm3 (1.8-7.7) 07/14/16 04:21 Seg Neutrophils # Man 13.0 K/mm3 (1.8-7.7) H 07/13/16 04:40 Band Neutrophils # 0.0 K/mm3 07/13/16 04:40 Lymphocytes # (Manual) 0.7 K/mm3 (1.2-5.4) L 07/13/16 04:40 Abs React Lymphs (Man) 0.0 K/mm3 07/13/16 04:40 Monocytes # (Manual) 0.3 K/mm3 (0.0-0.8) 07/13/16 04:40 Eosinophils # (Manual) 0.0 K/mm3 (0.0-0.4) 07/13/16 04:40 Basophils # (Manual) 0.0 K/mm3 (0.0-0.1) 07/13/16 04:40 Metamyelocytes # 0.0 K/mm3 07/13/16 04:40 Myelocytes # 0.0 K/mm3 07/13/16 04:40 Promyelocytes # 0.0 K/mm3 07/13/16 04:40 Blast Cells # 0.0 K/mm3 07/13/16 04:40 WBC Morphology Not Reportable 07/13/16 04:40 Hypersegmented Neuts Not Reportable 07/13/16 04:40 Hyposegmented Neuts Not Reportable 07/13/16 04:40 Hypogranular Neuts Not Reportable 07/13/16 04:40 Smudge Cells Not Reportable 07/13/16 04:40 Toxic Granulation Not Reportable 07/13/16 04:40 Toxic Vacuolation Not Reportable 07/13/16 04:40 Dohle Bodies Not Reportable 07/13/16 04:40 Pelger-Huet Anomaly Not Reportable 07/13/16 04:40 [place] Rods Not Reportable 07/13/16 04:40 Platelet Estimate Appears normal 07/13/16 04:40 Clumped Platelets Not Reportable 07/13/16 04:40 Plt Clumps, EDTA Not Reportable 07/13/16 04:40 Large Platelets Not Reportable 07/13/16 04:40 Giant Platelets Not Reportable 07/13/16 04:40 Platelet Satelliting Not Reportable 07/13/16 04:40 Plt Morphology Comment Not Reportable 07/13/16 04:40 RBC Morphology Not Reportable 07/13/16 04:40 Dimorphic RBCs Not Reportable 07/13/16 04:40 Polychromasia Not Reportable 07/13/16 04:40 Hypochromasia Not Reportable 07/13/16 04:40 Poikilocytosis Not Reportable 07/13/16 04:40 Anisocytosis 1+ 07/13/16 04:40 Microcytosis Not Reportable 07/13/16 04:40 Macrocytosis Not Reportable 07/13/16 04:40 Spherocytes Not Reportable 07/13/16 04:40 Pappenheimer Bodies Not Reportable 07/13/16 04:40 Sickle Cells Not Reportable 07/13/16 04:40 Target Cells Not Reportable 07/13/16 04:40 Tear Drop Cells Not Reportable 07/13/16 04:40 Ovalocytes Few 07/13/16 04:40 Helmet Cells Not Reportable 07/13/16 04:40 Pérez-[place] Bodies Not Reportable 07/13/16 04:40 [place] Rings Not Reportable 07/13/16 04:40 [place] Cells Not Reportable 07/13/16 04:40 Bite Cells Not Reportable 07/13/16 04:40 Crenated Cell Not Reportable 07/13/16 04:40 Elliptocytes Not Reportable 07/13/16 04:40 Acanthocytes (Spur) Not Reportable 07/13/16 04:40 Rouleaux Not Reportable 07/13/16 04:40 Hemoglobin C Crystals Not Reportable 07/13/16 04:40 Schistocytes Not Reportable 07/13/16 04:40 Malaria parasites Not Reportable 07/13/16 04:40 Kaushik Bodies Not Reportable 07/13/16 04:40 Hem Pathologist Commnt No 07/13/16 04:40 D-Dimer 751.80 ng/mlDDU (0-234) H 07/11/16 12:22 POC ABG pH 7.529 (7.35-7.45) H 07/13/16 14:15 POC ABG pCO2 26.8 (35-45) L 07/13/16 14:15 POC ABG pO2 70 (80-105) L 07/13/16 14:15 POC ABG HCO3 22.3 07/13/16 14:15 POC ABG Total CO2 23 07/13/16 14:15 POC ABG O2 Sat 96 07/13/16 14:15 POC ABG Base Excess 0 07/13/16 14:15 FiO2 21 % 07/13/16 14:15 Sodium 150 mmol/L (137-145) H 07/14/16 04:21 Potassium 3.6 mmol/L (3.6-5.0) 07/14/16 04:21 Chloride 107.3 mmol/L (98-107) H 07/14/16 04:21 Carbon Dioxide 21 mmol/L (22-30) L 07/14/16 04:21 Anion Gap 25 mmol/L 07/14/16 04:21 BUN 82 mg/dL (7-17) H 07/14/16 04:21 Creatinine 4.8 mg/dL (0.7-1.2) H 07/14/16 04:21 Estimated GFR 11 ml/min 07/14/16 04:21 BUN/Creatinine Ratio 17.08 % 07/14/16 04:21 Glucose 176 mg/dL (65-100) H 07/14/16 04:21 POC Glucose 166 (70-105) H 07/14/16 02:00 Lactic Acid 1.3 mmol/L (0.7-2.0) 07/11/16 12:22 Calcium 6.8 mg/dL (8.4-10.2) L 07/14/16 04:21 Phosphorus 2.8 mg/dL (2.5-4.5) 07/11/16 12:22 Magnesium 1.9 mg/dL (1.7-2.3) 07/11/16 12:22 Total Bilirubin < 0.2 mg/dL (0.1-1.2) 07/10/16 06:43 AST 17 units/L (5-40) 07/10/16 06:43 ALT 9 units/L (7-56) 07/10/16 06:43 Alkaline Phosphatase 62 units/L (35-129) 07/10/16 06:43 Total Creatine Kinase 131 units/L (30-135) 07/11/16 12:22 CK-MB (CK-2) 2.0 ng/mL (0.0-4.0) 07/11/16 12:22 CK-MB (CK-2) Rel Index 1.5 (0-4) 07/11/16 12:22 Troponin T < 0.010 ng/mL (0.00-0.029) 07/11/16 12:22 Total Protein 6.7 g/dL (6.3-8.2) 07/10/16 06:43 Albumin 3.5 g/dL (3.9-5) L 07/10/16 06:43 Albumin/Globulin Ratio 1.1 % 07/10/16 06:43 TSH 8.090 mlU/mL (0.270-4.200) H 07/05/16 05:08 Urine Color Straw (Yellow) 07/06/16 01:18 Urine Turbidity Clear (Clear) 07/06/16 01:18 Urine pH 6.0 (5.0-7.0) 07/06/16 01:18 Ur Specific [place] 1.003 (1.003-1.030) 07/06/16 01:18 Urine Protein <15 mg/dl mg/dL (Negative) 07/06/16 01:18 Urine Glucose (UA) Neg mg/dL (Negative) 07/06/16 01:18 Urine Ketones Neg mg/dL (Negative) 07/06/16 01:18 Urine Blood Neg (Negative) 07/06/16 01:18 Urine Nitrite Neg (Negative) 07/06/16 01:18 Urine Bilirubin Neg (Negative) 07/06/16 01:18 Urine Urobilinogen < 2.0 mg/dL (<2.0) 07/06/16 01:18 Ur Leukocyte Esterase Mod (Negative) 07/06/16 01:18 Urine WBC (Auto) 7.0 /HPF (0.0-6.0) H 07/06/16 01:18 Urine RBC (Auto) 3.0 /HPF (0.0-6.0) 07/06/16 01:18 U Epithel Cells (Auto) 1.0 /HPF (0-13.0) 06/30/16 11:34 Urine Bacteria (Auto) 1+ /HPF (Negative) 06/30/16 11:34 Urine Eosinophils None seen (None Seen) 07/06/16 01:18 Urine Creatinine 36.6 mg/dL (0.1-20.0) H 07/06/16 01:18 Urine Microalbumin 6.5 mg/dL (0.1-34.0) 07/06/16 01:18 Microalb/Creat Ratio 177.5 ug/mg 07/06/16 01:18 Urine Sodium 28 mEq/L 07/06/16 01:18 Urine Opiates Screen Presumptive negative 06/30/16 11:34 Urine Methadone Screen Presumptive negative 06/30/16 11:34 Acetaminophen < 15.0 ug/mL (10.0-30.0) 06/30/16 12:01 Ur Barbiturates Screen Presumptive negative 06/30/16 11:34 Ur Phencyclidine Scrn Presumptive negative 06/30/16 11:34 Ur Amphetamines Screen Presumptive negative 06/30/16 11:34 U Benzodiazepines Scrn Presumptive negative 06/30/16 11:34 Urine Cocaine Screen Presumptive negative 06/30/16 11:34 U Marijuana (THC) Screen Presumptive negative 06/30/16 11:34 Drugs of Abuse Note Disclamer 06/30/16 11:34 Plasma/Serum Alcohol < 0.01 gm% (0-0.07) 06/30/16 12:01
--- NOTE | 2016-07-14 10:48 | Progress Note ---
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 Plan to address problem: - up-titrate orol hydralazine - labetolol added - will give prn apressoline order (4) Acute respiratory failure Current Visit: Yes Status: Acute Plan to address problem: - continue scheduled benadryl - continue pepcid q12h - continue solumedrol at current dose - EXTUBATE - prn BIPAP post extubation - continue bronchodilators and pulmonary toilet - continue aspiration precautions / VAP bundles (5) Angioedema Current Visit: Yes Status: Acute Plan to address problem: - no obvious external edema - continue anti-histamine therapy and steroids (6) Dysphagia Current Visit: Yes Status: Acute Plan to address problem: - continue enteral nutrition - ST evaluation Subjective Date of service: 07/14/16 Principal diagnosis: Acute Respiratory Failure; Angioedema Interval history: Seen and examined at bedside; 24 hour events reviewed; nursing and respiratory care staff consulted; no adverse overnight events reported to me; doing well; daughter in room; no N/V/F/C/gross bleeding Objective Vital Signs - 12hr 07/13/16 07/13/16 07/14/16 23:00 23:30 00:00 Temperature 98.2 F Pulse Rate 78 80 78 Respiratory 10 L 13 11 L Rate Blood Pressure 146/58 146/58 133/56 O2 Sat by Pulse 100 100 100 Oximetry 07/14/16 07/14/16 07/14/16 00:12 00:30 01:00 Temperature Pulse Rate 79 79 76 Respiratory 12 12 11 L Rate Blood Pressure 133/56 133/56 132/56 O2 Sat by Pulse 100 100 100 Oximetry 07/14/16 07/14/16 07/14/16 01:02 01:30 02:00 Temperature Pulse Rate 76 80 74 Respiratory 10 L 13 10 L Rate Blood Pressure 132/56 132/56 134/57 O2 Sat by Pulse 100 100 100 Oximetry 07/14/16 07/14/16 07/14/16 02:30 03:00 03:30 Temperature Pulse Rate 69 71 69 Respiratory 10 L 9 L 10 L Rate Blood Pressure 134/57 132/48 132/48 O2 Sat by Pulse 100 100 100 Oximetry 07/14/16 07/14/16 07/14/16 04:00 04:30 04:40 Temperature 98.3 F Pulse Rate 67 66 67 Respiratory 10 L 9 L 10 L Rate Blood Pressure 135/55 132/48 132/48 O2 Sat by Pulse 100 Oximetry 07/14/16 07/14/16 07/14/16 05:00 05:12 05:30 Temperature Pulse Rate 81 78 66 Respiratory 11 L 10 L 9 L Rate Blood Pressure 153/68 153/68 153/68 O2 Sat by Pulse 100 100 100 Oximetry 07/14/16 07/14/16 07/14/16 06:00 06:02 07:46 Temperature Pulse Rate 64 64 Respiratory 10 L Rate Blood Pressure 140/52 140/52 O2 Sat by Pulse 100 100 Oximetry 07/14/16 08:00 Temperature 97.8 F Pulse Rate Respiratory Rate Blood Pressure O2 Sat by Pulse Oximetry Constitutional: no acute distress, lethargic Eyes: non-icteric ENT: oropharynx moist Neck: supple, no lymphadenopathy Effort: normal Ascultation: Bilateral: clear, diminished breath sounds Cardiovascular: regular rate and rhythm Gastrointestinal: normoactive bowel sounds, soft, non-tender, non-distended Integumentary: normal Extremities: no cyanosis, no edema, pulses normal, no ischemia or petechiae Neurologic: non-focal exam (grossly), pupils equal and round, motor strength normal and Psychiatric: other (unable to assess due to mental status) CBC and BMP: 07/16/16 09:54 07/16/16 09:54 ABG, PT/INR, D-dimer: ABG POC ABG pH 7.529 (7.35-7.45) H 07/13/16 14:15 POC ABG pCO2 26.8 (35-45) L 07/13/16 14:15 POC ABG pO2 70 (80-105) L 07/13/16 14:15 POC ABG HCO3 22.3 07/13/16 14:15 POC ABG Total CO2 23 07/13/16 14:15 POC ABG O2 Sat 96 07/13/16 14:15 PT/INR, D-dimer D-Dimer 751.80 ng/mlDDU (0-234) H 07/11/16 12:22 Abnormal lab findings: Abnormal Labs 07/03/16 07/03/16 07/04/16 14:34 14:34 06:21 WBC 3.9 L RBC 3.16 L 3.04 L Hgb 8.5 L 8.0 L Hct 26.8 L 25.6 L MCH 27 L 26 L RDW 16.5 H 16.2 H Plt Count Lymph % (Auto) [place] % (Auto) 10.7 H 10.7 H Lymph # 1.0 L Seg Neutrophils % Seg Neuts % (Manual) Lymphocytes % (Manual) Seg Neutrophils # Seg Neutrophils # Man Lymphocytes # (Manual) D-Dimer POC ABG pH POC ABG pCO2 POC ABG pO2 Sodium Potassium Chloride 107.6 H Carbon Dioxide BUN 27 H Creatinine 2.6 H Glucose POC Glucose Calcium 8.0 L Albumin TSH Urine WBC (Auto) Urine Creatinine 07/04/16 07/04/16 07/04/16 06:21 11:30 16:33 WBC RBC Hgb Hct MCH RDW Plt Count Lymph % (Auto) [place] % (Auto) Lymph # Seg Neutrophils % Seg Neuts % (Manual) Lymphocytes % (Manual) Seg Neutrophils # Seg Neutrophils # Man Lymphocytes # (Manual) D-Dimer POC ABG pH POC ABG pCO2 POC ABG pO2 Sodium Potassium Chloride 107.4 H Carbon Dioxide 21 L BUN 27 H Creatinine 2.7 H Glucose POC Glucose 110 H 106 H Calcium 7.8 L Albumin TSH Urine WBC (Auto) Urine Creatinine 07/05/16 07/05/16 07/05/16 05:08 05:08 05:08 WBC 4.0 L RBC 2.87 L Hgb 7.7 L Hct 24.2 L MCH 27 L RDW 16.0 H Plt Count Lymph % (Auto) [place] % (Auto) Lymph # Seg Neutrophils % Seg Neuts % (Manual) Lymphocytes % (Manual) Seg Neutrophils # Seg Neutrophils # Man Lymphocytes # (Manual) D-Dimer POC ABG pH POC ABG pCO2 POC ABG pO2 Sodium Potassium Chloride Carbon Dioxide 21 L BUN 32 H Creatinine 3.7 H Glucose POC Glucose Calcium 7.8 L Albumin TSH 8.090 H Urine WBC (Auto) Urine Creatinine 07/05/16 07/06/16 07/06/16 11:45 01:18 01:18 WBC RBC Hgb 8.3 L Hct 25.9 L MCH RDW Plt Count Lymph % (Auto) [place] % (Auto) Lymph # Seg Neutrophils % Seg Neuts % (Manual) Lymphocytes % (Manual) Seg Neutrophils # Seg Neutrophils # Man Lymphocytes # (Manual) D-Dimer POC ABG pH POC ABG pCO2 POC ABG pO2 Sodium Potassium Chloride Carbon Dioxide BUN Creatinine Glucose POC Glucose Calcium Albumin TSH Urine WBC (Auto) 7.0 H Urine Creatinine 36.6 H 07/06/16 07/06/16 07/06/16 05:55 05:55 16:07 WBC 3.0 L RBC 2.79 L Hgb 7.5 L Hct 23.5 L MCH 27 L RDW 16.5 H Plt Count Lymph % (Auto) [place] % (Auto) Lymph # Seg Neutrophils % Seg Neuts % (Manual) Lymphocytes % (Manual) Seg Neutrophils # Seg Neutrophils # Man Lymphocytes # (Manual) D-Dimer POC ABG pH POC ABG pCO2 POC ABG pO2 Sodium Potassium Chloride 109.3 H Carbon Dioxide 20 L BUN 32 H Creatinine 3.4 H Glucose POC Glucose 117 H Calcium 7.5 L Albumin TSH Urine WBC (Auto) Urine Creatinine 07/07/16 07/07/16 07/08/16 06:19 16:13 00:09 WBC RBC Hgb Hct MCH RDW Plt Count Lymph % (Auto) [place] % (Auto) Lymph # Seg Neutrophils % Seg Neuts % (Manual) Lymphocytes % (Manual) Seg Neutrophils # Seg Neutrophils # Man Lymphocytes # (Manual) D-Dimer POC ABG pH POC ABG pCO2 POC ABG pO2 Sodium Potassium Chloride 111.1 H Carbon Dioxide 20 L BUN 31 H Creatinine 3.1 H Glucose POC Glucose 108 H 134 H Calcium 8.0 L Albumin TSH Urine WBC (Auto) Urine Creatinine 07/08/16 07/08/16 07/08/16 11:39 16:31 21:22 WBC RBC Hgb Hct MCH RDW Plt Count Lymph % (Auto) [place] % (Auto) Lymph # Seg Neutrophils % Seg Neuts % (Manual) Lymphocytes % (Manual) Seg Neutrophils # Seg Neutrophils # Man Lymphocytes # (Manual) D-Dimer POC ABG pH POC ABG pCO2 POC ABG pO2 Sodium Potassium Chloride Carbon Dioxide BUN Creatinine Glucose POC Glucose 119 H 130 H 152 H Calcium Albumin TSH Urine WBC (Auto) Urine Creatinine 07/09/16 07/09/16 07/09/16 05:52 05:52 06:02 WBC RBC 3.55 L Hgb 9.4 L Hct MCH 27 L RDW 17.1 H Plt Count Lymph % (Auto) [place] % (Auto) Lymph # Seg Neutrophils % Seg Neuts % (Manual) Lymphocytes % (Manual) Seg Neutrophils # Seg Neutrophils # Man Lymphocytes # (Manual) D-Dimer POC ABG pH POC ABG pCO2 POC ABG pO2 Sodium 147 H Potassium 5.4 H Chloride 112.8 H Carbon Dioxide 21 L BUN 30 H Creatinine 2.5 H Glucose 21 L* POC Glucose < 40 L Calcium Albumin TSH Urine WBC (Auto) Urine Creatinine 07/09/16 07/09/16 07/10/16 11:31 16:50 05:23 WBC RBC Hgb Hct MCH RDW Plt Count Lymph % (Auto) [place] % (Auto) Lymph # Seg Neutrophils % Seg Neuts % (Manual) Lymphocytes % (Manual) Seg Neutrophils # Seg Neutrophils # Man Lymphocytes # (Manual) D-Dimer POC ABG pH POC ABG pCO2 POC ABG pO2 Sodium Potassium Chloride Carbon Dioxide BUN Creatinine Glucose POC Glucose 114 H 149 H < 40 L Calcium Albumin TSH Urine WBC (Auto) Urine Creatinine 07/10/16 07/10/16 07/10/16 06:03 06:43 06:43 WBC RBC 2.90 L Hgb 7.7 L Hct 25.0 L MCH 27 L RDW 17.0 H Plt Count Lymph % (Auto) [place] % (Auto) 10.4 H Lymph # 1.1 L Seg Neutrophils % Seg Neuts % (Manual) Lymphocytes % (Manual) Seg Neutrophils # Seg Neutrophils # Man Lymphocytes # (Manual) D-Dimer POC ABG pH POC ABG pCO2 POC ABG pO2 Sodium 148 H Potassium 5.1 H Chloride 111.7 H Carbon Dioxide 20 L BUN 31 H Creatinine 2.4 H Glucose POC Glucose 211 H Calcium 8.0 L Albumin 3.5 L TSH Urine WBC (Auto) Urine Creatinine 07/10/16 07/11/16 07/11/16 14:55 05:37 05:47 WBC RBC Hgb 7.9 L Hct 25.5 L MCH RDW Plt Count Lymph % (Auto) [place] % (Auto) Lymph # Seg Neutrophils % Seg Neuts % (Manual) Lymphocytes % (Manual) Seg Neutrophils # Seg Neutrophils # Man Lymphocytes # (Manual) D-Dimer POC ABG pH POC ABG pCO2 POC ABG pO2 Sodium Potassium Chloride Carbon Dioxide BUN Creatinine Glucose POC Glucose < 40 L > 500 H Calcium Albumin TSH Urine WBC (Auto) Urine Creatinine 07/11/16 07/11/16 07/11/16 05:56 07:42 07:48 WBC RBC Hgb Hct MCH RDW Plt Count Lymph % (Auto) [place] % (Auto) Lymph # Seg Neutrophils % Seg Neuts % (Manual) Lymphocytes % (Manual) Seg Neutrophils # Seg Neutrophils # Man Lymphocytes # (Manual) D-Dimer POC ABG pH POC ABG pCO2 POC ABG pO2 Sodium Potassium Chloride Carbon Dioxide BUN Creatinine Glucose POC Glucose 262 H 56 L 54 L Calcium Albumin TSH Urine WBC (Auto) Urine Creatinine 07/11/16 07/11/16 07/11/16 08:34 08:50 09:53 WBC RBC Hgb Hct MCH RDW Plt Count Lymph % (Auto) [place] % (Auto) Lymph # Seg Neutrophils % Seg Neuts % (Manual) Lymphocytes % (Manual) Seg Neutrophils # Seg Neutrophils # Man Lymphocytes # (Manual) D-Dimer POC ABG pH POC ABG pCO2 31.1 L POC ABG pO2 108 H Sodium Potassium Chloride Carbon Dioxide BUN Creatinine Glucose POC Glucose 110 H 68 L Calcium Albumin TSH Urine WBC (Auto) Urine Creatinine 07/11/16 07/11/16 07/11/16 11:48 12:22 12:22 WBC 11.6 H RBC Hgb Hct MCH 27 L RDW 17.2 H Plt Count Lymph % (Auto) [place] % (Auto) Lymph # Seg Neutrophils % Seg Neuts % (Manual) 91.0 H Lymphocytes % (Manual) 5.0 L Seg Neutrophils # 10.8 H Seg Neutrophils # Man 10.6 H Lymphocytes # (Manual) 0.6 L D-Dimer 751.80 H POC ABG pH POC ABG pCO2 POC ABG pO2 Sodium Potassium Chloride Carbon Dioxide BUN Creatinine Glucose POC Glucose 118 H Calcium Albumin TSH Urine WBC (Auto) Urine Creatinine 07/11/16 07/11/16 07/11/16 12:22 12:29 15:23 WBC RBC Hgb Hct MCH RDW Plt Count Lymph % (Auto) [place] % (Auto) Lymph # Seg Neutrophils % Seg Neuts % (Manual) Lymphocytes % (Manual) Seg Neutrophils # Seg Neutrophils # Man Lymphocytes # (Manual) D-Dimer POC ABG pH POC ABG pCO2 28.4 L POC ABG pO2 Sodium Potassium 6.1 H* Chloride 109.4 H Carbon Dioxide 18 L BUN 30 H Creatinine 2.1 H Glucose 126 H POC Glucose 204 H Calcium Albumin TSH Urine WBC (Auto) Urine Creatinine 07/11/16 07/11/16 07/11/16 17:27 17:55 21:42 WBC RBC Hgb Hct MCH RDW Plt Count Lymph % (Auto) [place] % (Auto) Lymph # Seg Neutrophils % Seg Neuts % (Manual) Lymphocytes % (Manual) Seg Neutrophils # Seg Neutrophils # Man Lymphocytes # (Manual) D-Dimer POC ABG pH POC ABG pCO2 POC ABG pO2 Sodium 146 H Potassium 6.5 H* Chloride 109.7 H Carbon Dioxide 20 L BUN 32 H Creatinine 2.4 H Glucose 167 H POC Glucose 433 H 142 H Calcium Albumin TSH Urine WBC (Auto) Urine Creatinine 07/12/16 07/12/16 07/12/16 04:34 04:34 05:22 WBC 14.0 H RBC Hgb Hct MCH 27 L RDW 17.6 H Plt Count 113 L Lymph % (Auto) [place] % (Auto) Lymph # Seg Neutrophils % Seg Neuts % (Manual) 87.0 H Lymphocytes % (Manual) 11.0 L Seg Neutrophils # Seg Neutrophils # Man 12.2 H Lymphocytes # (Manual) D-Dimer POC ABG pH 7.452 H POC ABG pCO2 29.6 L POC ABG pO2 Sodium Potassium 6.8 H* Chloride 110.2 H Carbon Dioxide 16 L BUN 43 H Creatinine 2.9 H Glucose 113 H POC Glucose Calcium Albumin TSH Urine WBC (Auto) Urine Creatinine 07/12/16 07/12/16 07/12/16 13:24 17:28 21:11 WBC RBC Hgb Hct MCH RDW Plt Count Lymph % (Auto) [place] % (Auto) Lymph # Seg Neutrophils % Seg Neuts % (Manual) Lymphocytes % (Manual) Seg Neutrophils # Seg Neutrophils # Man Lymphocytes # (Manual) D-Dimer POC ABG pH POC ABG pCO2 POC ABG pO2 Sodium 150 H Potassium Chloride 108.9 H Carbon Dioxide 21 L BUN 52 H Creatinine 3.7 H Glucose 143 H POC Glucose 148 H 134 H Calcium 8.0 L Albumin TSH Urine WBC (Auto) Urine Creatinine 07/12/16 07/13/16 07/13/16 21:50 04:40 04:40 WBC 14.0 H RBC 3.50 L Hgb 9.3 L Hct 29.3 L MCH 27 L RDW 17.3 H Plt Count Lymph % (Auto) 4.9 L [place] % (Auto) Lymph # 0.7 L Seg Neutrophils % 90.0 H Seg Neuts % (Manual) 93.0 H Lymphocytes % (Manual) 5.0 L Seg Neutrophils # 12.6 H Seg Neutrophils # Man 13.0 H Lymphocytes # (Manual) 0.7 L D-Dimer POC ABG pH POC ABG pCO2 POC ABG pO2 Sodium 151 H Potassium Chloride 109.3 H Carbon Dioxide BUN 59 H Creatinine 4.0 H Glucose 63 L POC Glucose 156 H Calcium 7.7 L Albumin TSH Urine WBC (Auto) Urine Creatinine 07/13/16 07/13/16 07/13/16 06:10 06:40 08:03 WBC RBC Hgb Hct MCH RDW Plt Count Lymph % (Auto) [place] % (Auto) Lymph # Seg Neutrophils % Seg Neuts % (Manual) Lymphocytes % (Manual) Seg Neutrophils # Seg Neutrophils # Man Lymphocytes # (Manual) D-Dimer POC ABG pH POC ABG pCO2 POC ABG pO2 Sodium Potassium Chloride Carbon Dioxide BUN Creatinine Glucose POC Glucose 68 L 176 H 141 H Calcium Albumin TSH Urine WBC (Auto) Urine Creatinine 07/13/16 07/13/16 07/13/16 09:17 12:30 14:15 WBC RBC Hgb Hct MCH RDW Plt Count Lymph % (Auto) [place] % (Auto) Lymph # Seg Neutrophils % Seg Neuts % (Manual) Lymphocytes % (Manual) Seg Neutrophils # Seg Neutrophils # Man Lymphocytes # (Manual) D-Dimer POC ABG pH 7.475 H 7.529 H POC ABG pCO2 33.4 L 26.8 L POC ABG pO2 110 H 70 L Sodium Potassium Chloride Carbon Dioxide BUN Creatinine Glucose POC Glucose 177 H Calcium Albumin TSH Urine WBC (Auto) Urine Creatinine 07/13/16 07/13/16 07/13/16 15:28 17:57 22:10 WBC RBC Hgb Hct MCH RDW Plt Count Lymph % (Auto) [place] % (Auto) Lymph # Seg Neutrophils % Seg Neuts % (Manual) Lymphocytes % (Manual) Seg Neutrophils # Seg Neutrophils # Man Lymphocytes # (Manual) D-Dimer POC ABG pH POC ABG pCO2 POC ABG pO2 Sodium Potassium Chloride Carbon Dioxide BUN Creatinine Glucose POC Glucose 122 H 166 H 197 H Calcium Albumin TSH Urine WBC (Auto) Urine Creatinine 07/14/16 07/14/16 07/14/16 02:00 04:21 04:21 WBC RBC 3.01 L Hgb 8.1 L Hct 25.3 L MCH 27 L RDW 17.9 H Plt Count Lymph % (Auto) 6.1 L [place] % (Auto) Lymph # 0.5 L Seg Neutrophils % 89.9 H Seg Neuts % (Manual) Lymphocytes % (Manual) Seg Neutrophils # Seg Neutrophils # Man Lymphocytes # (Manual) D-Dimer POC ABG pH POC ABG pCO2 POC ABG pO2 Sodium 150 H Potassium Chloride 107.3 H Carbon Dioxide 21 L BUN 82 H Creatinine 4.8 H Glucose 176 H POC Glucose 166 H Calcium 6.8 L Albumin TSH Urine WBC (Auto) Urine Creatinine
[2016-07-14] MEDS: NORMODYNE PO SCH ×2 (10:51→22:18)
[2016-07-14] MEDS: NEURONTIN PO SCH ×2 (10:51→22:18)
[2016-07-14] MEDS: PEPCID IV SCH ×2 (10:51→10:52)
--- NOTE | 2016-07-14 12:59 | Progress Note ---
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 Admitted for HTN, UTI and NH placement. BS went to 20 and admitted CCU on vent for few days, Head CT NAF, now extubated and back on floor, nonverbal w NG Tube. Mental Status Exam - Vital signs Last Vital Signs Temp 97.8 F 07/14/16 08:00 Pulse 75 07/14/16 12:00 Resp 12 07/14/16 12:00 BP 164/62 07/14/16 12:00 Pulse Ox 100 07/14/16 12:00 - Exam Narrative exam: Alert and oriented x 2 (nods yes that her name is Carmen, nods yes that this is a hospital). Makes good eye contact. Appears unable to speak when she tries, tongue is protruding at times. Mood is pleasant. Affect is blunted, some smiling that is unrelated to situation/content. Her answers/nods/are delayed, processing is impaired/slowed. Her thought content appears impaired as well-- Laughs out inappropriately. Her memory/Insight and judgment are impaired. Hand restraint to prevent her from pulling out her NG Tube. Orientation: place, person Affect: other (blunted with some occassional smiles unrelated to situation) Mood: calm Thought content: other (laughs out inappropriately ) Thought Process: Disorganized (behavior incongruent with situation) Perceptions: other (laughs out inappropriately ) Speech: other (non verbal) Concentration: distractible Motor activity: other (low) Level of consciousness: alert Memory: Recent Impaired Interaction: other (makes eye contact, nods to questions) Assessment and Plan ASSESSMENT Encephalopathy, multifactoral s/p Acute hypoxic respiratory failure. Urinary tract infection. Treated. Acute on CKD stage IV. Hyperkalemia. 6.8. Hypernatremia Hypothyroidism 69yo F admitted with: UTI, HTN, need for NH placement, now s/p respiratory failure with NG tube Bipolar Disorder Dementia Family informed staff they would not be able to care for her at home anymore as they were being evicted. - Patient Problems (1) Dementia Current Visit: No Status: Acute Qualifiers: Dementia behavioral disturbance: with behavioral disturbance Plan to address problem: RECOMMEND 1.Continue Zyprexa 10mg po HS 2. Zyprexa Zydis 5mg SL Q12H PRN agitation/psychosis 3. NH placement 4. Psych will follow
--- NOTE | 2016-07-14 17:18 | Progress Note ---
Assessment and Plan Continue IV fluids. Start Free water. Strict input and output documentation. Pt is on steroids - consider taper Will follow - Patient Problems (1) Hyperkalemia Current Visit: Yes Status: Acute (2) GABRIELA (acute kidney injury) Current Visit: Yes Status: Acute (3) Chronic renal insufficiency Current Visit: Yes Status: Acute (4) Acute respiratory failure Current Visit: Yes Status: Acute (5) Angioedema Current Visit: Yes Status: Acute (6) Chronic anemia Current Visit: Yes Status: Acute (7) Hypertension Current Visit: Yes Status: Acute Subjective Date of service: 07/14/16 Principal diagnosis: Acute Respiratory Failure; Angioedema Interval history: Seen in follow up for renal insufficiency. Objective - Vital Signs Vital signs: Vital Signs - 12hr Temp Pulse Resp BP Pulse Ox 99.3 F 76 20 175/77 97 07/14/16 15:56 07/14/16 15:56 07/14/16 15:56 07/14/16 15:56 07/14/16 15:56 Intake & Output 07/12/16 07/13/16 07/14/16 07/15/16 06:59 06:59 06:59 06:59 Intake Total 40 1030 1780 280 Output Total 250 270 780 Balance -100 616 1689 280 Weight 76.1 kg 77.5 kg 77.5 kg 77.5 kg - General Appearance General appearance: well-developed, appears stated age EENT: PERRL, mucous membranes moist Neck: no JVD, no thyromegaly, supple Respiratory: Present: Clear to Ascultation Cardiology: regular, normal heart rate, S1S2, no murmurs Gastrointestinal: normoactive bowel sounds Integumentary: no rash, warm and dry Neurologic: no focal deficit, alert and oriented x3, gait normal Musculoskeletal: no deformities, no erythema, no cyanosis, no clubbing Psychiatric: mood/affect appropriate, cooperative - Lab 07/14/16 04:21 07/14/16 04:21 Most recent lab results Calcium 6.8 mg/dL (8.4-10.2) L 07/14/16 04:21 Phosphorus 2.8 mg/dL (2.5-4.5) 07/11/16 12:22 Magnesium 1.9 mg/dL (1.7-2.3) 07/11/16 12:22 Urine Creatinine 36.6 mg/dL (0.1-20.0) H 07/06/16 01:18 Urine Sodium 28 mEq/L 07/06/16 01:18 Current Medications Lipase/Protease/Amylase (Pancrekori Young 10,500 Unit) 1 each FEEDTUBE PRN PRN PRN Reason: For Clogged Feeding Tube Dextrose (D50w (25gm)) 50 ml IV PRN PRN PRN Reason: Hypoglycemia Diphenhydramine HCl (Benadryl) 25 mg IV Q8H [facility] Last Admin: 07/14/16 14:01 Dose: 25 mg Famotidine (Pepcid) 20 mg PO DAILY [facility] Gabapentin (Neurontin) 100 mg PO BID [facility] Last Admin: 07/14/16 10:51 Dose: 100 mg Heparin Sodium (Porcine) (Heparin) 5,000 unit SUB-Q Q8HR [facility] Last Admin: 07/14/16 13:54 Dose: 5,000 unit Hydralazine HCl (Apresoline) 10 mg IV Q6HR PRN PRN Reason: Hypertension Last Admin: 07/13/16 17:33 Dose: 10 mg Hydralazine HCl (Apresoline) 75 mg FEEDTUBE Q8HR [facility] Last Admin: 07/14/16 14:00 Dose: 75 mg Hydrophilic Ointment (Vaseline Lip Therapy) 1 applic TP Q2HR PRN PRN Reason: Dry Lips Insulin Aspart (Novolog) 0 units SUB-Q ACHS RACHEL PRN Reason: Protocol Last Admin: 07/14/16 12:00 Dose: 1 units Labetalol HCl (Normodyne) 200 mg PO BID [facility] Last Admin: 07/14/16 10:51 Dose: 200 mg Levothyroxine Sodium (Synthroid) 150 mcg PO DAILY@0600 [facility] Last Admin: 07/14/16 06:02 Dose: 150 mcg Methylprednisolone Sodium Succinate (Solu-Medrol) 60 mg IV Q6HR [facility] Last Admin: 07/14/16 13:53 Dose: 60 mg Multi-Ingred Cream/Lotion/Oil/Oint (Artificial Tears Ophth Oint) 1 applic OU Q4HR PRN PRN Reason: Dry Eye(s) Olanzapine (Zyprexa) 10 mg PO HS [facility] Last Admin: 07/13/16 21:57 Dose: 10 mg Simple Syrup (Simple Syrup) 15 ml FEEDTUBE PRN PRN PRN Reason: Hypoglycemia Simple Syrup (Simple Syrup) 30 ml FEEDTUBE PRN PRN PRN Reason: Hypoglycemia Sodium Bicarbonate (Sodium Bicarbonate) 325 mg FEEDTUBE PRN PRN PRN Reason: For Clogged Feeding Tube
[2016-07-15 05:38] LABS: Basophils % (Auto) 0.1 % (0.0-1.8); Hematocrit 25.8 % (30.3-42.9); Hemoglobin 8.2 gm/dl (10.1-14.3); Mean Corpuscular HGB Conc 32 % (30-34); Mean Corpuscular Hemoglobin 27 pg (28-32); Mean Corpuscular Volume 85 fl (79-97); Platelet Count 223 K/mm3 (140-440); Red Blood Count 3.04 M/mm3 (3.65-5.03); Red Cell Distribution Width 17.3 % (13.2-15.2); White Blood Count 8.9 K/mm3 (4.5-11.0)
[2016-07-15 06:00] LABS: BUN/Creatinine Ratio 20.96; Calcium 6.3 mg/dL (8.4-10.2); Chloride 103.8 mmol/L (98-107); Potassium 3.4 mmol/L (3.6-5.0)
[2016-07-15] MEDS: BENADRYL IV SCH ×3 (06:16→21:47)
[2016-07-15] MEDS: APRESOLINE FEEDTUBE SCH ×3 (06:17→21:45)
[2016-07-15] MEDS: SYNTHROID PO SCH (06:17)
[2016-07-15] MEDS: HEPARIN SUB-Q SCH ×3 (06:18→21:48)
[2016-07-15] MEDS: NORMODYNE PO SCH ×3 (08:01→21:46)
[2016-07-15] MEDS: NOVOLOG SUB-Q SCH ×3 (08:02→17:59)
--- NOTE | 2016-07-15 08:37 | Progress Note ---
Assessment and Plan Assessment and plan: Acute hypoxic respiratory failure - Improved - Off BiPAP - On oxygen support Angioedema - Patient is now extubated and doing well. - We will obtain speech consultation for swallow evaluation. - patient may need BiPAP at night. Urinary tract infection - Urine culture positive for Klebsiella -Treated with Rocephin, continued Acute on CKD stage IV. - Etiology likely secondary to vasomotor nephropathy versus interstitial nephritis from initial treatment with Bactrim for UTI. - Nephrology following. - Creatinine is trending up Hyperkalemia. - Patient received Kayexalate, D5 and insulin. - Potassium is 3.4 this morning, i am not going to replace potassium because of her kidney disease DM2 - Monitor blood glucose closely. - SSI Toxic metabolic encephalopathy. - Continue to treat underlying causes. - Continue supportive care Hypothyroidism. - Continue Synthroid. Hypertension - chronic. - Continue antihypertensive medications and monitor. - Hydralazine when necessary Left upper extremity swelling. - Ultrasound showed SVT in the cephalic vein - Doesn't need treatment, pain control History Interval history: Patient seen and examined this morning. Patient is nonverbal. Hospitalist Physical - Physical exam Narrative exam: Not in cardiopulmonary distress. The patient appeared well nourished and normally developed. Vital signs as documented. Head exam is unremarkable. No scleral icterus . Neck is without jugular venous distension, thyromegaly, or carotid bruits. Lungs are clear to auscultation. Cardiac exam reveals regular rate and Rhythm. First and second heart sounds normal. No murmurs, rubs or gallops. Abdominal exam reveals normal bowel sounds, no masses, no organomegaly and no aortic enlargement. Extremities swelling of the left arm. 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 - Constitutional Vitals: Temp Pulse Resp BP Pulse Ox 97.6 F 80 20 138/60 100 07/15/16 01:11 07/15/16 08:01 07/15/16 01:11 07/15/16 06:17 07/15/16 02:54 General appearance: Present: no acute distress, other (intubated and sedated) Results - Labs CBC & Chem 7: 07/15/16 04:56 07/15/16 04:56 Labs: Laboratory Last Values WBC 8.9 K/mm3 (4.5-11.0) 07/15/16 04:56 RBC 3.04 M/mm3 (3.65-5.03) L 07/15/16 04:56 Hgb 8.2 gm/dl (10.1-14.3) L 07/15/16 04:56 Hct 25.8 % (30.3-42.9) L 07/15/16 04:56 MCV 85 fl (79-97) 07/15/16 04:56 MCH 27 pg (28-32) L 07/15/16 04:56 MCHC 32 % (30-34) 07/15/16 04:56 RDW 17.3 % (13.2-15.2) H 07/15/16 04:56 Plt Count 223 K/mm3 (140-440) 07/15/16 04:56 Lymph % (Auto) 4.2 % (13.4-35.0) L 07/15/16 04:56 [place] % (Auto) 11.8 % (0.0-7.3) H 07/15/16 04:56 Eos % (Auto) 0.0 % (0.0-4.3) 07/15/16 04:56 Baso % (Auto) 0.1 % (0.0-1.8) 07/15/16 04:56 Lymph # 0.4 K/mm3 (1.2-5.4) L 07/15/16 04:56 [place] # 1.1 K/mm3 (0.0-0.8) H 07/15/16 04:56 Eos # 0.0 K/mm3 (0.0-0.4) 07/15/16 04:56 Baso # 0.0 K/mm3 (0.0-0.1) 07/15/16 04:56 Add Manual Diff Complete 07/13/16 04:40 Total Counted 100 07/13/16 04:40 Seg Neutrophils % 83.9 % (40.0-70.0) H 07/15/16 04:56 Seg Neuts % (Manual) 93.0 % (40.0-70.0) H 07/13/16 04:40 Band Neutrophils % 0 % 07/13/16 04:40 Lymphocytes % (Manual) 5.0 % (13.4-35.0) L 07/13/16 04:40 Reactive Lymphs % (Man) 0 % 07/13/16 04:40 Monocytes % (Manual) 2.0 % (0.0-7.3) 07/13/16 04:40 Eosinophils % (Manual) 0 % (0.0-4.3) 07/13/16 04:40 Basophils % (Manual) 0 % (0.0-1.8) 07/13/16 04:40 Metamyelocytes % 0 % 07/13/16 04:40 Myelocytes % 0 % 07/13/16 04:40 Promyelocytes % 0 % 07/13/16 04:40 Blast Cells % 0 % 07/13/16 04:40 Nucleated RBC % Not Reportable 07/13/16 04:40 Seg Neutrophils # 7.5 K/mm3 (1.8-7.7) 07/15/16 04:56 Seg Neutrophils # Man 13.0 K/mm3 (1.8-7.7) H 07/13/16 04:40 Band Neutrophils # 0.0 K/mm3 07/13/16 04:40 Lymphocytes # (Manual) 0.7 K/mm3 (1.2-5.4) L 07/13/16 04:40 Abs React Lymphs (Man) 0.0 K/mm3 07/13/16 04:40 Monocytes # (Manual) 0.3 K/mm3 (0.0-0.8) 07/13/16 04:40 Eosinophils # (Manual) 0.0 K/mm3 (0.0-0.4) 07/13/16 04:40 Basophils # (Manual) 0.0 K/mm3 (0.0-0.1) 07/13/16 04:40 Metamyelocytes # 0.0 K/mm3 07/13/16 04:40 Myelocytes # 0.0 K/mm3 07/13/16 04:40 Promyelocytes # 0.0 K/mm3 07/13/16 04:40 Blast Cells # 0.0 K/mm3 07/13/16 04:40 WBC Morphology Not Reportable 07/13/16 04:40 Hypersegmented Neuts Not Reportable 07/13/16 04:40 Hyposegmented Neuts Not Reportable 07/13/16 04:40 Hypogranular Neuts Not Reportable 07/13/16 04:40 Smudge Cells Not Reportable 07/13/16 04:40 Toxic Granulation Not Reportable 07/13/16 04:40 Toxic Vacuolation Not Reportable 07/13/16 04:40 Dohle Bodies Not Reportable 07/13/16 04:40 Pelger-Huet Anomaly Not Reportable 07/13/16 04:40 [place] Rods Not Reportable 07/13/16 04:40 Platelet Estimate Appears normal 07/13/16 04:40 Clumped Platelets Not Reportable 07/13/16 04:40 Plt Clumps, EDTA Not Reportable 07/13/16 04:40 Large Platelets Not Reportable 07/13/16 04:40 Giant Platelets Not Reportable 07/13/16 04:40 Platelet Satelliting Not Reportable 07/13/16 04:40 Plt Morphology Comment Not Reportable 07/13/16 04:40 RBC Morphology Not Reportable 07/13/16 04:40 Dimorphic RBCs Not Reportable 07/13/16 04:40 Polychromasia Not Reportable 07/13/16 04:40 Hypochromasia Not Reportable 07/13/16 04:40 Poikilocytosis Not Reportable 07/13/16 04:40 Anisocytosis 1+ 07/13/16 04:40 Microcytosis Not Reportable 07/13/16 04:40 Macrocytosis Not Reportable 07/13/16 04:40 Spherocytes Not Reportable 07/13/16 04:40 Pappenheimer Bodies Not Reportable 07/13/16 04:40 Sickle Cells Not Reportable 07/13/16 04:40 Target Cells Not Reportable 07/13/16 04:40 Tear Drop Cells Not Reportable 07/13/16 04:40 Ovalocytes Few 07/13/16 04:40 Helmet Cells Not Reportable 07/13/16 04:40 [place]prez-Smoke Rise Bodies Not Reportable 07/13/16 04:40 [place] Rings Not Reportable 07/13/16 04:40 Radha Cells Not Reportable 07/13/16 04:40 Bite Cells Not Reportable 07/13/16 04:40 Crenated Cell Not Reportable 07/13/16 04:40 Elliptocytes Not Reportable 07/13/16 04:40 Acanthocytes (Spur) Not Reportable 07/13/16 04:40 Rouleaux Not Reportable 07/13/16 04:40 Hemoglobin C Crystals Not Reportable 07/13/16 04:40 Schistocytes Not Reportable 07/13/16 04:40 Malaria parasites Not Reportable 07/13/16 04:40 Kaushik Bodies Not Reportable 07/13/16 04:40 Hem Pathologist Commnt No 07/13/16 04:40 D-Dimer 751.80 ng/mlDDU (0-234) H 07/11/16 12:22 POC ABG pH 7.529 (7.35-7.45) H 07/13/16 14:15 POC ABG pCO2 26.8 (35-45) L 07/13/16 14:15 POC ABG pO2 70 (80-105) L 07/13/16 14:15 POC ABG HCO3 22.3 07/13/16 14:15 POC ABG Total CO2 23 07/13/16 14:15 POC ABG O2 Sat 96 07/13/16 14:15 POC ABG Base Excess 0 07/13/16 14:15 FiO2 21 % 07/13/16 14:15 Sodium 147 mmol/L (137-145) H 07/15/16 04:56 Potassium 3.4 mmol/L (3.6-5.0) L 07/15/16 04:56 Chloride 103.8 mmol/L (98-107) 07/15/16 04:56 Carbon Dioxide 20 mmol/L (22-30) L 07/15/16 04:56 Anion Gap 27 mmol/L 07/15/16 04:56 BUN 109 mg/dL (7-17) H 07/15/16 04:56 Creatinine 5.2 mg/dL (0.7-1.2) H 07/15/16 04:56 Estimated GFR 10 ml/min 07/15/16 04:56 BUN/Creatinine Ratio 20.96 % 07/15/16 04:56 Glucose 242 mg/dL (65-100) H 07/15/16 04:56 POC Glucose 275 (70-105) H 07/15/16 04:46 Lactic Acid 1.3 mmol/L (0.7-2.0) 07/11/16 12:22 Calcium 6.3 mg/dL (8.4-10.2) L 07/15/16 04:56 Phosphorus 2.8 mg/dL (2.5-4.5) 07/11/16 12:22 Magnesium 1.9 mg/dL (1.7-2.3) 07/11/16 12:22 Total Bilirubin < 0.2 mg/dL (0.1-1.2) 07/10/16 06:43 AST 17 units/L (5-40) 07/10/16 06:43 ALT 9 units/L (7-56) 07/10/16 06:43 Alkaline Phosphatase 62 units/L (35-129) 07/10/16 06:43 Total Creatine Kinase 131 units/L (30-135) 07/11/16 12:22 CK-MB (CK-2) 2.0 ng/mL (0.0-4.0) 07/11/16 12:22 CK-MB (CK-2) Rel Index 1.5 (0-4) 07/11/16 12:22 Troponin T < 0.010 ng/mL (0.00-0.029) 07/11/16 12:22 Total Protein 6.7 g/dL (6.3-8.2) 07/10/16 06:43 Albumin 3.5 g/dL (3.9-5) L 07/10/16 06:43 Albumin/Globulin Ratio 1.1 % 07/10/16 06:43 TSH 8.090 mlU/mL (0.270-4.200) H 07/05/16 05:08 Urine Color Straw (Yellow) 07/06/16 01:18 Urine Turbidity Clear (Clear) 07/06/16 01:18 Urine pH 6.0 (5.0-7.0) 07/06/16 01:18 Ur Specific [place] 1.003 (1.003-1.030) 07/06/16 01:18 Urine Protein <15 mg/dl mg/dL (Negative) 07/06/16 01:18 Urine Glucose (UA) Neg mg/dL (Negative) 07/06/16 01:18 Urine Ketones Neg mg/dL (Negative) 07/06/16 01:18 Urine Blood Neg (Negative) 07/06/16 01:18 Urine Nitrite Neg (Negative) 07/06/16 01:18 Urine Bilirubin Neg (Negative) 07/06/16 01:18 Urine Urobilinogen < 2.0 mg/dL (<2.0) 07/06/16 01:18 Ur Leukocyte Esterase Mod (Negative) 07/06/16 01:18 Urine WBC (Auto) 7.0 /HPF (0.0-6.0) H 07/06/16 01:18 Urine RBC (Auto) 3.0 /HPF (0.0-6.0) 07/06/16 01:18 U Epithel Cells (Auto) 1.0 /HPF (0-13.0) 06/30/16 11:34 Urine Bacteria (Auto) 1+ /HPF (Negative) 06/30/16 11:34 Urine Eosinophils None seen (None Seen) 07/06/16 01:18 Urine Creatinine 36.6 mg/dL (0.1-20.0) H 07/06/16 01:18 Urine Microalbumin 6.5 mg/dL (0.1-34.0) 07/06/16 01:18 Microalb/Creat Ratio 177.5 ug/mg 07/06/16 01:18 Urine Sodium 28 mEq/L 07/06/16 01:18 Urine Opiates Screen Presumptive negative 06/30/16 11:34 Urine Methadone Screen Presumptive negative 06/30/16 11:34 Acetaminophen < 15.0 ug/mL (10.0-30.0) 06/30/16 12:01 Ur Barbiturates Screen Presumptive negative 06/30/16 11:34 Ur Phencyclidine Scrn Presumptive negative 06/30/16 11:34 Ur Amphetamines Screen Presumptive negative 06/30/16 11:34 U Benzodiazepines Scrn Presumptive negative 06/30/16 11:34 Urine Cocaine Screen Presumptive negative 06/30/16 11:34 U Marijuana (THC) Screen Presumptive negative 06/30/16 11:34 Drugs of Abuse Note Disclamer 06/30/16 11:34 Plasma/Serum Alcohol < 0.01 gm% (0-0.07) 06/30/16 12:01 Creatinine is trending up.
--- NOTE | 2016-07-15 09:35 | XRay Report ---
AP CHEST: HISTORY: Followup respiratory failure AP view of the chest demonstrates a normal mediastinal and cardiac contour with clear lungs and normal bony and soft tissue structures. IMPRESSION: Unremarkable AP chest. No significant change since yesterday's exam.
[2016-07-15] MEDS: PEPCID PO SCH (09:59)
[2016-07-15] MEDS: NEURONTIN PO SCH ×2 (09:59→21:47)
--- NOTE | 2016-07-15 13:40 | Progress Note ---
Assessment and Plan - Patient Problems (1) Bipolar disorder Current Visit: No Status: Acute Qualifiers: Active/Remission status: remission status unspecified Most recent bipolar episode type: most recent episode unspecified type Plan to address problem: - work-up per attending and Psych (2) Renal failure (ARF), acute on chronic Current Visit: No Status: Acute Plan to address problem: - follow I's & O's - replace K+ - per nephrology otherwise (3) Malignant hypertension Current Visit: No Status: Chronic Plan to address problem: - on oral anti-HTNsives - prn IV appresoline (4) Acute respiratory failure Current Visit: Yes Status: Acute Plan to address problem: - resolved mostly - wean off oxygen for sats > 92% - wean off systemic steroids - wean off benadryl - follow clinically (5) Angioedema Current Visit: Yes Status: Acute Plan to address problem: - as above Subjective Date of service: 07/15/16 Principal diagnosis: Acute Respiratory Failure; Angioedema Interval history: Seen and examined at bedside; 24 hour events reviewed; nursing and respiratory care staff consulted; no adverse overnight events reported to me; resting peacefully in bed; appears confused/anxious; no N/V/F/C; on nasal canula Objective Vital Signs - 12hr 07/15/16 07/15/16 07/15/16 02:54 06:17 07:35 Temperature 97.6 F Pulse Rate 73 Pulse Rate [ 82 80 Right Radial] Respiratory 18 Rate Blood Pressure 138/60 Blood Pressure 138/60 [Right Arm] O2 Sat by Pulse 100 100 Oximetry 07/15/16 07/15/16 08:01 08:33 Temperature Pulse Rate 80 Pulse Rate [ Right Radial] Respiratory Rate Blood Pressure Blood Pressure [Right Arm] O2 Sat by Pulse 97 Oximetry Constitutional: no acute distress, lethargic Eyes: non-icteric ENT: oropharynx moist Neck: supple, no lymphadenopathy Effort: normal Ascultation: Bilateral: clear, diminished breath sounds Cardiovascular: regular rate and rhythm Gastrointestinal: normoactive bowel sounds, soft, non-tender, non-distended Integumentary: normal Extremities: no cyanosis, no edema, pulses normal, no ischemia or petechiae Neurologic: non-focal exam (grossly), pupils equal and round, motor strength normal and Psychiatric: anxious CBC and BMP: 07/15/16 04:56 07/15/16 04:56 ABG, PT/INR, D-dimer: ABG POC ABG pH 7.529 (7.35-7.45) H 07/13/16 14:15 POC ABG pCO2 26.8 (35-45) L 07/13/16 14:15 POC ABG pO2 70 (80-105) L 07/13/16 14:15 POC ABG HCO3 22.3 07/13/16 14:15 POC ABG Total CO2 23 07/13/16 14:15 POC ABG O2 Sat 96 07/13/16 14:15 PT/INR, D-dimer D-Dimer 751.80 ng/mlDDU (0-234) H 07/11/16 12:22 Abnormal lab findings: Abnormal Labs 07/03/16 07/03/16 07/04/16 14:34 14:34 06:21 WBC 3.9 L RBC 3.16 L 3.04 L Hgb 8.5 L 8.0 L Hct 26.8 L 25.6 L MCH 27 L 26 L RDW 16.5 H 16.2 H Plt Count Lymph % (Auto) [place] % (Auto) 10.7 H 10.7 H Lymph # 1.0 L [place] # Seg Neutrophils % Seg Neuts % (Manual) Lymphocytes % (Manual) Seg Neutrophils # Seg Neutrophils # Man Lymphocytes # (Manual) D-Dimer POC ABG pH POC ABG pCO2 POC ABG pO2 Sodium Potassium Chloride 107.6 H Carbon Dioxide BUN 27 H Creatinine 2.6 H Glucose POC Glucose Calcium 8.0 L Albumin TSH Urine WBC (Auto) Urine Creatinine 07/04/16 07/04/16 07/04/16 06:21 11:30 16:33 WBC RBC Hgb Hct MCH RDW Plt Count Lymph % (Auto) [place] % (Auto) Lymph # [place] # Seg Neutrophils % Seg Neuts % (Manual) Lymphocytes % (Manual) Seg Neutrophils # Seg Neutrophils # Man Lymphocytes # (Manual) D-Dimer POC ABG pH POC ABG pCO2 POC ABG pO2 Sodium Potassium Chloride 107.4 H Carbon Dioxide 21 L BUN 27 H Creatinine 2.7 H Glucose POC Glucose 110 H 106 H Calcium 7.8 L Albumin TSH Urine WBC (Auto) Urine Creatinine 07/05/16 07/05/16 07/05/16 05:08 05:08 05:08 WBC 4.0 L RBC 2.87 L Hgb 7.7 L Hct 24.2 L MCH 27 L RDW 16.0 H Plt Count Lymph % (Auto) [place] % (Auto) Lymph # [place] # Seg Neutrophils % Seg Neuts % (Manual) Lymphocytes % (Manual) Seg Neutrophils # Seg Neutrophils # Man Lymphocytes # (Manual) D-Dimer POC ABG pH POC ABG pCO2 POC ABG pO2 Sodium Potassium Chloride Carbon Dioxide 21 L BUN 32 H Creatinine 3.7 H Glucose POC Glucose Calcium 7.8 L Albumin TSH 8.090 H Urine WBC (Auto) Urine Creatinine 07/05/16 07/06/16 07/06/16 11:45 01:18 01:18 WBC RBC Hgb 8.3 L Hct 25.9 L MCH RDW Plt Count Lymph % (Auto) [place] % (Auto) Lymph # [place] # Seg Neutrophils % Seg Neuts % (Manual) Lymphocytes % (Manual) Seg Neutrophils # Seg Neutrophils # Man Lymphocytes # (Manual) D-Dimer POC ABG pH POC ABG pCO2 POC ABG pO2 Sodium Potassium Chloride Carbon Dioxide BUN Creatinine Glucose POC Glucose Calcium Albumin TSH Urine WBC (Auto) 7.0 H Urine Creatinine 36.6 H 07/06/16 07/06/16 07/06/16 05:55 05:55 16:07 WBC 3.0 L RBC 2.79 L Hgb 7.5 L Hct 23.5 L MCH 27 L RDW 16.5 H Plt Count Lymph % (Auto) [place] % (Auto) Lymph # [place] # Seg Neutrophils % Seg Neuts % (Manual) Lymphocytes % (Manual) Seg Neutrophils # Seg Neutrophils # Man Lymphocytes # (Manual) D-Dimer POC ABG pH POC ABG pCO2 POC ABG pO2 Sodium Potassium Chloride 109.3 H Carbon Dioxide 20 L BUN 32 H Creatinine 3.4 H Glucose POC Glucose 117 H Calcium 7.5 L Albumin TSH Urine WBC (Auto) Urine Creatinine 07/07/16 07/07/16 07/08/16 06:19 16:13 00:09 WBC RBC Hgb Hct MCH RDW Plt Count Lymph % (Auto) [place] % (Auto) Lymph # [place] # Seg Neutrophils % Seg Neuts % (Manual) Lymphocytes % (Manual) Seg Neutrophils # Seg Neutrophils # Man Lymphocytes # (Manual) D-Dimer POC ABG pH POC ABG pCO2 POC ABG pO2 Sodium Potassium Chloride 111.1 H Carbon Dioxide 20 L BUN 31 H Creatinine 3.1 H Glucose POC Glucose 108 H 134 H Calcium 8.0 L Albumin TSH Urine WBC (Auto) Urine Creatinine 07/08/16 07/08/16 07/08/16 11:39 16:31 21:22 WBC RBC Hgb Hct MCH RDW Plt Count Lymph % (Auto) [place] % (Auto) Lymph # [place] # Seg Neutrophils % Seg Neuts % (Manual) Lymphocytes % (Manual) Seg Neutrophils # Seg Neutrophils # Man Lymphocytes # (Manual) D-Dimer POC ABG pH POC ABG pCO2 POC ABG pO2 Sodium Potassium Chloride Carbon Dioxide BUN Creatinine Glucose POC Glucose 119 H 130 H 152 H Calcium Albumin TSH Urine WBC (Auto) Urine Creatinine 07/09/16 07/09/16 07/09/16 05:52 05:52 06:02 WBC RBC 3.55 L Hgb 9.4 L Hct MCH 27 L RDW 17.1 H Plt Count Lymph % (Auto) [place] % (Auto) Lymph # [place] # Seg Neutrophils % Seg Neuts % (Manual) Lymphocytes % (Manual) Seg Neutrophils # Seg Neutrophils # Man Lymphocytes # (Manual) D-Dimer POC ABG pH POC ABG pCO2 POC ABG pO2 Sodium 147 H Potassium 5.4 H Chloride 112.8 H Carbon Dioxide 21 L BUN 30 H Creatinine 2.5 H Glucose 21 L* POC Glucose < 40 L Calcium Albumin TSH Urine WBC (Auto) Urine Creatinine 07/09/16 07/09/16 07/10/16 11:31 16:50 05:23 WBC RBC Hgb Hct MCH RDW Plt Count Lymph % (Auto) [place] % (Auto) Lymph # [place] # Seg Neutrophils % Seg Neuts % (Manual) Lymphocytes % (Manual) Seg Neutrophils # Seg Neutrophils # Man Lymphocytes # (Manual) D-Dimer POC ABG pH POC ABG pCO2 POC ABG pO2 Sodium Potassium Chloride Carbon Dioxide BUN Creatinine Glucose POC Glucose 114 H 149 H < 40 L Calcium Albumin TSH Urine WBC (Auto) Urine Creatinine 07/10/16 07/10/16 07/10/16 06:03 06:43 06:43 WBC RBC 2.90 L Hgb 7.7 L Hct 25.0 L MCH 27 L RDW 17.0 H Plt Count Lymph % (Auto) [place] % (Auto) 10.4 H Lymph # 1.1 L [place] # Seg Neutrophils % Seg Neuts % (Manual) Lymphocytes % (Manual) Seg Neutrophils # Seg Neutrophils # Man Lymphocytes # (Manual) D-Dimer POC ABG pH POC ABG pCO2 POC ABG pO2 Sodium 148 H Potassium 5.1 H Chloride 111.7 H Carbon Dioxide 20 L BUN 31 H Creatinine 2.4 H Glucose POC Glucose 211 H Calcium 8.0 L Albumin 3.5 L TSH Urine WBC (Auto) Urine Creatinine 07/10/16 07/11/16 07/11/16 14:55 05:37 05:47 WBC RBC Hgb 7.9 L Hct 25.5 L MCH RDW Plt Count Lymph % (Auto) [place] % (Auto) Lymph # [place] # Seg Neutrophils % Seg Neuts % (Manual) Lymphocytes % (Manual) Seg Neutrophils # Seg Neutrophils # Man Lymphocytes # (Manual) D-Dimer POC ABG pH POC ABG pCO2 POC ABG pO2 Sodium Potassium Chloride Carbon Dioxide BUN Creatinine Glucose POC Glucose < 40 L > 500 H Calcium Albumin TSH Urine WBC (Auto) Urine Creatinine 07/11/16 07/11/16 07/11/16 05:56 07:42 07:48 WBC RBC Hgb Hct MCH RDW Plt Count Lymph % (Auto) [place] % (Auto) Lymph # [place] # Seg Neutrophils % Seg Neuts % (Manual) Lymphocytes % (Manual) Seg Neutrophils # Seg Neutrophils # Man Lymphocytes # (Manual) D-Dimer POC ABG pH POC ABG pCO2 POC ABG pO2 Sodium Potassium Chloride Carbon Dioxide BUN Creatinine Glucose POC Glucose 262 H 56 L 54 L Calcium Albumin TSH Urine WBC (Auto) Urine Creatinine 07/11/16 07/11/16 07/11/16 08:34 08:50 09:53 WBC RBC Hgb Hct MCH RDW Plt Count Lymph % (Auto) [place] % (Auto) Lymph # [place] # Seg Neutrophils % Seg Neuts % (Manual) Lymphocytes % (Manual) Seg Neutrophils # Seg Neutrophils # Man Lymphocytes # (Manual) D-Dimer POC ABG pH POC ABG pCO2 31.1 L POC ABG pO2 108 H Sodium Potassium Chloride Carbon Dioxide BUN Creatinine Glucose POC Glucose 110 H 68 L Calcium Albumin TSH Urine WBC (Auto) Urine Creatinine 07/11/16 07/11/16 07/11/16 11:48 12:22 12:22 WBC 11.6 H RBC Hgb Hct MCH 27 L RDW 17.2 H Plt Count Lymph % (Auto) [place] % (Auto) Lymph # [place] # Seg Neutrophils % Seg Neuts % (Manual) 91.0 H Lymphocytes % (Manual) 5.0 L Seg Neutrophils # 10.8 H Seg Neutrophils # Man 10.6 H Lymphocytes # (Manual) 0.6 L D-Dimer 751.80 H POC ABG pH POC ABG pCO2 POC ABG pO2 Sodium Potassium Chloride Carbon Dioxide BUN Creatinine Glucose POC Glucose 118 H Calcium Albumin TSH Urine WBC (Auto) Urine Creatinine 07/11/16 07/11/16 07/11/16 12:22 12:29 15:23 WBC RBC Hgb Hct MCH RDW Plt Count Lymph % (Auto) [place] % (Auto) Lymph # [place] # Seg Neutrophils % Seg Neuts % (Manual) Lymphocytes % (Manual) Seg Neutrophils # Seg Neutrophils # Man Lymphocytes # (Manual) D-Dimer POC ABG pH POC ABG pCO2 28.4 L POC ABG pO2 Sodium Potassium 6.1 H* Chloride 109.4 H Carbon Dioxide 18 L BUN 30 H Creatinine 2.1 H Glucose 126 H POC Glucose 204 H Calcium Albumin TSH Urine WBC (Auto) Urine Creatinine 07/11/16 07/11/16 07/11/16 17:27 17:55 21:42 WBC RBC Hgb Hct MCH RDW Plt Count Lymph % (Auto) [place] % (Auto) Lymph # [place] # Seg Neutrophils % Seg Neuts % (Manual) Lymphocytes % (Manual) Seg Neutrophils # Seg Neutrophils # Man Lymphocytes # (Manual) D-Dimer POC ABG pH POC ABG pCO2 POC ABG pO2 Sodium 146 H Potassium 6.5 H* Chloride 109.7 H Carbon Dioxide 20 L BUN 32 H Creatinine 2.4 H Glucose 167 H POC Glucose 433 H 142 H Calcium Albumin TSH Urine WBC (Auto) Urine Creatinine 07/12/16 07/12/16 07/12/16 04:34 04:34 05:22 WBC 14.0 H RBC Hgb Hct MCH 27 L RDW 17.6 H Plt Count 113 L Lymph % (Auto) [place] % (Auto) Lymph # [place] # Seg Neutrophils % Seg Neuts % (Manual) 87.0 H Lymphocytes % (Manual) 11.0 L Seg Neutrophils # Seg Neutrophils # Man 12.2 H Lymphocytes # (Manual) D-Dimer POC ABG pH 7.452 H POC ABG pCO2 29.6 L POC ABG pO2 Sodium Potassium 6.8 H* Chloride 110.2 H Carbon Dioxide 16 L BUN 43 H Creatinine 2.9 H Glucose 113 H POC Glucose Calcium Albumin TSH Urine WBC (Auto) Urine Creatinine 07/12/16 07/12/16 07/12/16 13:24 17:28 21:11 WBC RBC Hgb Hct MCH RDW Plt Count Lymph % (Auto) [place] % (Auto) Lymph # [place] # Seg Neutrophils % Seg Neuts % (Manual) Lymphocytes % (Manual) Seg Neutrophils # Seg Neutrophils # Man Lymphocytes # (Manual) D-Dimer POC ABG pH POC ABG pCO2 POC ABG pO2 Sodium 150 H Potassium Chloride 108.9 H Carbon Dioxide 21 L BUN 52 H Creatinine 3.7 H Glucose 143 H POC Glucose 148 H 134 H Calcium 8.0 L Albumin TSH Urine WBC (Auto) Urine Creatinine 07/12/16 07/13/16 07/13/16 21:50 04:40 04:40 WBC 14.0 H RBC 3.50 L Hgb 9.3 L Hct 29.3 L MCH 27 L RDW 17.3 H Plt Count Lymph % (Auto) 4.9 L [place] % (Auto) Lymph # 0.7 L [place] # Seg Neutrophils % 90.0 H Seg Neuts % (Manual) 93.0 H Lymphocytes % (Manual) 5.0 L Seg Neutrophils # 12.6 H Seg Neutrophils # Man 13.0 H Lymphocytes # (Manual) 0.7 L D-Dimer POC ABG pH POC ABG pCO2 POC ABG pO2 Sodium 151 H Potassium Chloride 109.3 H Carbon Dioxide BUN 59 H Creatinine 4.0 H Glucose 63 L POC Glucose 156 H Calcium 7.7 L Albumin TSH Urine WBC (Auto) Urine Creatinine 07/13/16 07/13/16 07/13/16 06:10 06:40 08:03 WBC RBC Hgb Hct MCH RDW Plt Count Lymph % (Auto) [place] % (Auto) Lymph # [place] # Seg Neutrophils % Seg Neuts % (Manual) Lymphocytes % (Manual) Seg Neutrophils # Seg Neutrophils # Man Lymphocytes # (Manual) D-Dimer POC ABG pH POC ABG pCO2 POC ABG pO2 Sodium Potassium Chloride Carbon Dioxide BUN Creatinine Glucose POC Glucose 68 L 176 H 141 H Calcium Albumin TSH Urine WBC (Auto) Urine Creatinine 07/13/16 07/13/16 07/13/16 09:17 12:30 14:15 WBC RBC Hgb Hct MCH RDW Plt Count Lymph % (Auto) [place] % (Auto) Lymph # [place] # Seg Neutrophils % Seg Neuts % (Manual) Lymphocytes % (Manual) Seg Neutrophils # Seg Neutrophils # Man Lymphocytes # (Manual) D-Dimer POC ABG pH 7.475 H 7.529 H POC ABG pCO2 33.4 L 26.8 L POC ABG pO2 110 H 70 L Sodium Potassium Chloride Carbon Dioxide BUN Creatinine Glucose POC Glucose 177 H Calcium Albumin TSH Urine WBC (Auto) Urine Creatinine 07/13/16 07/13/16 07/13/16 15:28 17:57 22:10 WBC RBC Hgb Hct MCH RDW Plt Count Lymph % (Auto) [place] % (Auto) Lymph # [place] # Seg Neutrophils % Seg Neuts % (Manual) Lymphocytes % (Manual) Seg Neutrophils # Seg Neutrophils # Man Lymphocytes # (Manual) D-Dimer POC ABG pH POC ABG pCO2 POC ABG pO2 Sodium Potassium Chloride Carbon Dioxide BUN Creatinine Glucose POC Glucose 122 H 166 H 197 H Calcium Albumin TSH Urine WBC (Auto) Urine Creatinine 07/14/16 07/14/16 07/14/16 02:00 04:21 04:21 WBC RBC 3.01 L Hgb 8.1 L Hct 25.3 L MCH 27 L RDW 17.9 H Plt Count Lymph % (Auto) 6.1 L [place] % (Auto) Lymph # 0.5 L [place] # Seg Neutrophils % 89.9 H Seg Neuts % (Manual) Lymphocytes % (Manual) Seg Neutrophils # Seg Neutrophils # Man Lymphocytes # (Manual) D-Dimer POC ABG pH POC ABG pCO2 POC ABG pO2 Sodium 150 H Potassium Chloride 107.3 H Carbon Dioxide 21 L BUN 82 H Creatinine 4.8 H Glucose 176 H POC Glucose 166 H Calcium 6.8 L Albumin TSH Urine WBC (Auto) Urine Creatinine 07/14/16 07/14/16 07/14/16 05:32 09:42 22:32 WBC RBC Hgb Hct MCH RDW Plt Count Lymph % (Auto) [place] % (Auto) Lymph # [place] # Seg Neutrophils % Seg Neuts % (Manual) Lymphocytes % (Manual) Seg Neutrophils # Seg Neutrophils # Man Lymphocytes # (Manual) D-Dimer POC ABG pH POC ABG pCO2 POC ABG pO2 Sodium Potassium Chloride Carbon Dioxide BUN Creatinine Glucose POC Glucose 202 H 216 H 191 H Calcium Albumin TSH Urine WBC (Auto) Urine Creatinine 07/15/16 07/15/16 07/15/16 04:46 04:56 04:56 WBC RBC 3.04 L Hgb 8.2 L Hct 25.8 L MCH 27 L RDW 17.3 H Plt Count Lymph % (Auto) 4.2 L [place] % (Auto) 11.8 H Lymph # 0.4 L [place] # 1.1 H Seg Neutrophils % 83.9 H Seg Neuts % (Manual) Lymphocytes % (Manual) Seg Neutrophils # Seg Neutrophils # Man Lymphocytes # (Manual) D-Dimer POC ABG pH POC ABG pCO2 POC ABG pO2 Sodium 147 H Potassium 3.4 L Chloride Carbon Dioxide 20 L BUN 109 H Creatinine 5.2 H Glucose 242 H POC Glucose 275 H Calcium 6.3 L Albumin TSH Urine WBC (Auto) Urine Creatinine 07/15/16 11:32 WBC RBC Hgb Hct MCH RDW Plt Count Lymph % (Auto) [place] % (Auto) Lymph # [place] # Seg Neutrophils % Seg Neuts % (Manual) Lymphocytes % (Manual) Seg Neutrophils # Seg Neutrophils # Man Lymphocytes # (Manual) D-Dimer POC ABG pH POC ABG pCO2 POC ABG pO2 Sodium Potassium Chloride Carbon Dioxide BUN Creatinine Glucose POC Glucose 250 H Calcium Albumin TSH Urine WBC (Auto) Urine Creatinine Chest x-ray: image reviewed
[2016-07-15] MEDS ORDERED: POTASSIUM CHLORIDE FEEDTUBE ONE (14:00)
[2016-07-16] MEDS: NOVOLOG SUB-Q SCH ×4 (01:02→18:01)
[2016-07-16] MEDS: APRESOLINE FEEDTUBE SCH ×3 (05:53→21:19)
[2016-07-16] MEDS: HEPARIN SUB-Q SCH ×3 (05:54→21:17)
[2016-07-16] MEDS: SYNTHROID PO SCH (05:54)
--- NOTE | 2016-07-16 10:12 | XRay Report ---
AP CHEST: HISTORY: chest pain AP view of the chest demonstrates a normal mediastinal and cardiac contour with clear lungs and normal bony and soft tissue structures. Feeding tube terminates just beyond the GE junction. IMPRESSION: No acute process.
[2016-07-16 10:35] LABS: Basophils % (Auto) 0.1 % (0.0-1.8); Hematocrit 27.3 % (30.3-42.9); Hemoglobin 8.6 gm/dl (10.1-14.3); Mean Corpuscular HGB Conc 31 % (30-34); Mean Corpuscular Hemoglobin 27 pg (28-32); Mean Corpuscular Volume 85 fl (79-97); Platelet Count 214 K/mm3 (140-440); Red Cell Distribution Width 17.1 % (13.2-15.2); White Blood Count 8.4 K/mm3 (4.5-11.0)
--- NOTE | 2016-07-16 11:49 | Progress Note ---
Subjective Date of service: 07/16/16 Principal diagnosis: Acute Respiratory Failure; Angioedema Interval history: severe slurred speech Lethargic Follows simple commands poor historian Family in the room Acute hypoxic respiratory failure - Improved - Off BiPAP - On oxygen support Angioedema - Patient is now extubated and doing well. - We will obtain speech consultation for swallow evaluation. - patient may need BiPAP at night. Urinary tract infection - Urine culture positive for Klebsiella -Treated with Rocephin, continued Acute on CKD stage IV. - Etiology likely secondary to vasomotor nephropathy versus interstitial nephritis from initial treatment with Bactrim for UTI. - Nephrology following. - recheck electrolytes in AM Hyperkalemia. - Patient received Kayexalate, D5 and insulin. - DM2 - Monitor blood glucose closely. - cont. SS coverage Toxic metabolic encephalopathy. - Continue to treat underlying causes. - Continue supportive care Hypothyroidism. - Continue Synthroid. Hypertension - chronic and poorly controlled - Continue antihypertensive medications and monitor. - Hydralazine when necessary Adjust BP meds Left upper extremity swelling. - Ultrasound showed SVT in the cephalic vein - Doesn't need treatment, pain control Continue tube feedings For SNF placement when stable May need PEG tube placement short term This was discussed with the family All questions were answered Took 15 min to answer all their questions Objective - Constitutional Vitals: Vital Signs - 12hr 07/16/16 07/16/16 07/16/16 00:06 05:53 06:34 Temperature 97.6 F Pulse Rate 79 Pulse Rate [ 79 70 Right Radial] Respiratory 20 Rate Blood Pressure 167/70 Blood Pressure 157/67 [Right Arm] O2 Sat by Pulse 100 100 Oximetry 07/16/16 08:45 Temperature 97.7 F Pulse Rate Pulse Rate [ 72 Right Radial] Respiratory 20 Rate Blood Pressure Blood Pressure 174/78 [Right Arm] O2 Sat by Pulse 99 Oximetry General appearance: Present: no acute distress - EENT Eyes: PERRL, EOM intact ENT: hearing intact, other (mild swollen tongue) - Neck Neck: supple, normal ROM, no masses or JVD - Respiratory Respiratory: bilateral: CTA, diminished - Cardiovascular Rhythm: regular Heart Sounds: Present: S1 & S2 Extremities: No edema - Gastrointestinal General gastrointestinal: Present: soft, non-tender - Musculoskeletal Musculoskeletal: generalized weakness - Neurologic Neurologic: moves all extremities - Labs CBC & Chem 7: 07/16/16 09:54 07/15/16 04:56 Labs: Abnormal lab results 07/15/16 07/15/16 07/16/16 Range/Units 16:52 20:41 00:37 RBC (3.65-5.03) M/mm3 Hgb (10.1-14.3) gm/dl Hct (30.3-42.9) % MCH (28-32) pg RDW (13.2-15.2) % Lymph % (Auto) (13.4-35.0) % Lymph # (1.2-5.4) K/mm3 Seg Neutrophils % (40.0-70.0) % POC Glucose 195 H 219 H 257 H (70-105) 07/16/16 07/16/16 Range/Units 05:47 09:54 RBC 3.20 L (3.65-5.03) M/mm3 Hgb 8.6 L (10.1-14.3) gm/dl Hct 27.3 L (30.3-42.9) % MCH 27 L (28-32) pg RDW 17.1 H (13.2-15.2) % Lymph % (Auto) 4.2 L (13.4-35.0) % Lymph # 0.3 L (1.2-5.4) K/mm3 Seg Neutrophils % 89.6 H (40.0-70.0) % POC Glucose 223 H (70-105)
[2016-07-16] MEDS ORDERED: APRESOLINE FEEDTUBE SCH (11:59)
[2016-07-16] MEDS: NEURONTIN PO SCH ×2 (12:04→21:19)
[2016-07-16] MEDS: PEPCID PO SCH (12:05)
[2016-07-16 12:06] LABS: Calcium 6.4 mg/dL (8.4-10.2); Chloride 105.4 mmol/L (98-107); Potassium 3.9 mmol/L (3.6-5.0)
[2016-07-16] MEDS: NORMODYNE PO SCH ×3 (12:15→20:00)
[2016-07-16] MEDS: BENADRYL IV SCH (12:15)
[2016-07-16 12:18] LABS: BUN/Creatinine Ratio 24.33
--- NOTE | 2016-07-16 12:39 | Progress Note ---
Assessment and Plan - Patient Problems (1) Bipolar disorder Current Visit: No Status: Acute Qualifiers: Active/Remission status: remission status unspecified Most recent bipolar episode type: most recent episode unspecified type Plan to address problem: - stable (2) Renal failure (ARF), acute on chronic Current Visit: No Status: Acute Plan to address problem: - nephrology evaluation ongoing - correct electrolytes as necessary - to begin dialysis (3) Malignant hypertension Current Visit: No Status: Chronic Plan to address problem: - better controlled - continue p.o. hydralazine, labetolol with prn IV meds (4) Acute respiratory failure Current Visit: Yes Status: Acute Plan to address problem: - tapered scheduled benadryl - taper pepcid q12h - taper of systemic steroids - prn BIPAP - continue bronchodilators and pulmonary toilet - improved (5) Angioedema Current Visit: Yes Status: Acute Plan to address problem: - no obvious external edema - taper off anti-histamine therapy and steroids Subjective Date of service: 07/16/16 Principal diagnosis: Acute Respiratory Failure; Angioedema Interval history: Seen and examined at bedside; 24 hour events reviewed; nursing and respiratory care staff consulted; no adverse overnight events reported to me; to beginj dialysis and needs a vascath; no new issues otherwise Objective Vital Signs - 12hr 07/16/16 07/16/16 07/16/16 05:53 06:34 08:45 Temperature 97.7 F Pulse Rate 79 Pulse Rate [ 70 72 Right Radial] Respiratory 20 Rate Blood Pressure 167/70 Blood Pressure 174/78 [Right Arm] O2 Sat by Pulse 100 99 Oximetry 07/16/16 12:15 Temperature Pulse Rate Pulse Rate [ Right Radial] Respiratory Rate Blood Pressure 174/86 Blood Pressure [Right Arm] O2 Sat by Pulse Oximetry Constitutional: no acute distress, lethargic Eyes: non-icteric ENT: oropharynx moist Neck: supple, no lymphadenopathy Effort: normal Ascultation: Bilateral: clear, diminished breath sounds Cardiovascular: regular rate and rhythm Gastrointestinal: normoactive bowel sounds, soft, non-tender, non-distended Integumentary: normal Extremities: no cyanosis, no edema, pulses normal, no ischemia or petechiae Neurologic: non-focal exam (grossly), pupils equal and round, motor strength normal and Psychiatric: anxious CBC and BMP: 07/16/16 09:54 07/16/16 09:54 ABG, PT/INR, D-dimer: ABG POC ABG pH 7.529 (7.35-7.45) H 07/13/16 14:15 POC ABG pCO2 26.8 (35-45) L 07/13/16 14:15 POC ABG pO2 70 (80-105) L 07/13/16 14:15 POC ABG HCO3 22.3 07/13/16 14:15 POC ABG Total CO2 23 07/13/16 14:15 POC ABG O2 Sat 96 07/13/16 14:15 PT/INR, D-dimer D-Dimer 751.80 ng/mlDDU (0-234) H 07/11/16 12:22 Abnormal lab findings: Abnormal Labs 07/03/16 07/03/16 07/04/16 14:34 14:34 06:21 WBC 3.9 L RBC 3.16 L 3.04 L Hgb 8.5 L 8.0 L Hct 26.8 L 25.6 L MCH 27 L 26 L RDW 16.5 H 16.2 H Plt Count Lymph % (Auto) [place] % (Auto) 10.7 H 10.7 H Lymph # 1.0 L [place] # Seg Neutrophils % Seg Neuts % (Manual) Lymphocytes % (Manual) Seg Neutrophils # Seg Neutrophils # Man Lymphocytes # (Manual) D-Dimer POC ABG pH POC ABG pCO2 POC ABG pO2 Sodium Potassium Chloride 107.6 H Carbon Dioxide BUN 27 H Creatinine 2.6 H Glucose POC Glucose Calcium 8.0 L Albumin TSH Urine WBC (Auto) Urine Creatinine 07/04/16 07/04/16 07/04/16 06:21 11:30 16:33 WBC RBC Hgb Hct MCH RDW Plt Count Lymph % (Auto) [place] % (Auto) Lymph # [place] # Seg Neutrophils % Seg Neuts % (Manual) Lymphocytes % (Manual) Seg Neutrophils # Seg Neutrophils # Man Lymphocytes # (Manual) D-Dimer POC ABG pH POC ABG pCO2 POC ABG pO2 Sodium Potassium Chloride 107.4 H Carbon Dioxide 21 L BUN 27 H Creatinine 2.7 H Glucose POC Glucose 110 H 106 H Calcium 7.8 L Albumin TSH Urine WBC (Auto) Urine Creatinine 07/05/16 07/05/16 07/05/16 05:08 05:08 05:08 WBC 4.0 L RBC 2.87 L Hgb 7.7 L Hct 24.2 L MCH 27 L RDW 16.0 H Plt Count Lymph % (Auto) [place] % (Auto) Lymph # [place] # Seg Neutrophils % Seg Neuts % (Manual) Lymphocytes % (Manual) Seg Neutrophils # Seg Neutrophils # Man Lymphocytes # (Manual) D-Dimer POC ABG pH POC ABG pCO2 POC ABG pO2 Sodium Potassium Chloride Carbon Dioxide 21 L BUN 32 H Creatinine 3.7 H Glucose POC Glucose Calcium 7.8 L Albumin TSH 8.090 H Urine WBC (Auto) Urine Creatinine 07/05/16 07/06/16 07/06/16 11:45 01:18 01:18 WBC RBC Hgb 8.3 L Hct 25.9 L MCH RDW Plt Count Lymph % (Auto) [place] % (Auto) Lymph # [place] # Seg Neutrophils % Seg Neuts % (Manual) Lymphocytes % (Manual) Seg Neutrophils # Seg Neutrophils # Man Lymphocytes # (Manual) D-Dimer POC ABG pH POC ABG pCO2 POC ABG pO2 Sodium Potassium Chloride Carbon Dioxide BUN Creatinine Glucose POC Glucose Calcium Albumin TSH Urine WBC (Auto) 7.0 H Urine Creatinine 36.6 H 07/06/16 07/06/16 07/06/16 05:55 05:55 16:07 WBC 3.0 L RBC 2.79 L Hgb 7.5 L Hct 23.5 L MCH 27 L RDW 16.5 H Plt Count Lymph % (Auto) [place] % (Auto) Lymph # [place] # Seg Neutrophils % Seg Neuts % (Manual) Lymphocytes % (Manual) Seg Neutrophils # Seg Neutrophils # Man Lymphocytes # (Manual) D-Dimer POC ABG pH POC ABG pCO2 POC ABG pO2 Sodium Potassium Chloride 109.3 H Carbon Dioxide 20 L BUN 32 H Creatinine 3.4 H Glucose POC Glucose 117 H Calcium 7.5 L Albumin TSH Urine WBC (Auto) Urine Creatinine 07/07/16 07/07/16 07/08/16 06:19 16:13 00:09 WBC RBC Hgb Hct MCH RDW Plt Count Lymph % (Auto) [place] % (Auto) Lymph # [place] # Seg Neutrophils % Seg Neuts % (Manual) Lymphocytes % (Manual) Seg Neutrophils # Seg Neutrophils # Man Lymphocytes # (Manual) D-Dimer POC ABG pH POC ABG pCO2 POC ABG pO2 Sodium Potassium Chloride 111.1 H Carbon Dioxide 20 L BUN 31 H Creatinine 3.1 H Glucose POC Glucose 108 H 134 H Calcium 8.0 L Albumin TSH Urine WBC (Auto) Urine Creatinine 07/08/16 07/08/16 07/08/16 11:39 16:31 21:22 WBC RBC Hgb Hct MCH RDW Plt Count Lymph % (Auto) [place] % (Auto) Lymph # [place] # Seg Neutrophils % Seg Neuts % (Manual) Lymphocytes % (Manual) Seg Neutrophils # Seg Neutrophils # Man Lymphocytes # (Manual) D-Dimer POC ABG pH POC ABG pCO2 POC ABG pO2 Sodium Potassium Chloride Carbon Dioxide BUN Creatinine Glucose POC Glucose 119 H 130 H 152 H Calcium Albumin TSH Urine WBC (Auto) Urine Creatinine 07/09/16 07/09/16 07/09/16 05:52 05:52 06:02 WBC RBC 3.55 L Hgb 9.4 L Hct MCH 27 L RDW 17.1 H Plt Count Lymph % (Auto) [place] % (Auto) Lymph # [place] # Seg Neutrophils % Seg Neuts % (Manual) Lymphocytes % (Manual) Seg Neutrophils # Seg Neutrophils # Man Lymphocytes # (Manual) D-Dimer POC ABG pH POC ABG pCO2 POC ABG pO2 Sodium 147 H Potassium 5.4 H Chloride 112.8 H Carbon Dioxide 21 L BUN 30 H Creatinine 2.5 H Glucose 21 L* POC Glucose < 40 L Calcium Albumin TSH Urine WBC (Auto) Urine Creatinine 07/09/16 07/09/16 07/10/16 11:31 16:50 05:23 WBC RBC Hgb Hct MCH RDW Plt Count Lymph % (Auto) [place] % (Auto) Lymph # [place] # Seg Neutrophils % Seg Neuts % (Manual) Lymphocytes % (Manual) Seg Neutrophils # Seg Neutrophils # Man Lymphocytes # (Manual) D-Dimer POC ABG pH POC ABG pCO2 POC ABG pO2 Sodium Potassium Chloride Carbon Dioxide BUN Creatinine Glucose POC Glucose 114 H 149 H < 40 L Calcium Albumin TSH Urine WBC (Auto) Urine Creatinine 07/10/16 07/10/16 07/10/16 06:03 06:43 06:43 WBC RBC 2.90 L Hgb 7.7 L Hct 25.0 L MCH 27 L RDW 17.0 H Plt Count Lymph % (Auto) [place] % (Auto) 10.4 H Lymph # 1.1 L [place] # Seg Neutrophils % Seg Neuts % (Manual) Lymphocytes % (Manual) Seg Neutrophils # Seg Neutrophils # Man Lymphocytes # (Manual) D-Dimer POC ABG pH POC ABG pCO2 POC ABG pO2 Sodium 148 H Potassium 5.1 H Chloride 111.7 H Carbon Dioxide 20 L BUN 31 H Creatinine 2.4 H Glucose POC Glucose 211 H Calcium 8.0 L Albumin 3.5 L TSH Urine WBC (Auto) Urine Creatinine 07/10/16 07/11/16 07/11/16 14:55 05:37 05:47 WBC RBC Hgb 7.9 L Hct 25.5 L MCH RDW Plt Count Lymph % (Auto) [place] % (Auto) Lymph # [place] # Seg Neutrophils % Seg Neuts % (Manual) Lymphocytes % (Manual) Seg Neutrophils # Seg Neutrophils # Man Lymphocytes # (Manual) D-Dimer POC ABG pH POC ABG pCO2 POC ABG pO2 Sodium Potassium Chloride Carbon Dioxide BUN Creatinine Glucose POC Glucose < 40 L > 500 H Calcium Albumin TSH Urine WBC (Auto) Urine Creatinine 07/11/16 07/11/16 07/11/16 05:56 07:42 07:48 WBC RBC Hgb Hct MCH RDW Plt Count Lymph % (Auto) [place] % (Auto) Lymph # [place] # Seg Neutrophils % Seg Neuts % (Manual) Lymphocytes % (Manual) Seg Neutrophils # Seg Neutrophils # Man Lymphocytes # (Manual) D-Dimer POC ABG pH POC ABG pCO2 POC ABG pO2 Sodium Potassium Chloride Carbon Dioxide BUN Creatinine Glucose POC Glucose 262 H 56 L 54 L Calcium Albumin TSH Urine WBC (Auto) Urine Creatinine 07/11/16 07/11/16 07/11/16 08:34 08:50 09:53 WBC RBC Hgb Hct MCH RDW Plt Count Lymph % (Auto) [place] % (Auto) Lymph # [place] # Seg Neutrophils % Seg Neuts % (Manual) Lymphocytes % (Manual) Seg Neutrophils # Seg Neutrophils # Man Lymphocytes # (Manual) D-Dimer POC ABG pH POC ABG pCO2 31.1 L POC ABG pO2 108 H Sodium Potassium Chloride Carbon Dioxide BUN Creatinine Glucose POC Glucose 110 H 68 L Calcium Albumin TSH Urine WBC (Auto) Urine Creatinine 07/11/16 07/11/16 07/11/16 11:48 12:22 12:22 WBC 11.6 H RBC Hgb Hct MCH 27 L RDW 17.2 H Plt Count Lymph % (Auto) [place] % (Auto) Lymph # [place] # Seg Neutrophils % Seg Neuts % (Manual) 91.0 H Lymphocytes % (Manual) 5.0 L Seg Neutrophils # 10.8 H Seg Neutrophils # Man 10.6 H Lymphocytes # (Manual) 0.6 L D-Dimer 751.80 H POC ABG pH POC ABG pCO2 POC ABG pO2 Sodium Potassium Chloride Carbon Dioxide BUN Creatinine Glucose POC Glucose 118 H Calcium Albumin TSH Urine WBC (Auto) Urine Creatinine 07/11/16 07/11/16 07/11/16 12:22 12:29 15:23 WBC RBC Hgb Hct MCH RDW Plt Count Lymph % (Auto) [place] % (Auto) Lymph # [place] # Seg Neutrophils % Seg Neuts % (Manual) Lymphocytes % (Manual) Seg Neutrophils # Seg Neutrophils # Man Lymphocytes # (Manual) D-Dimer POC ABG pH POC ABG pCO2 28.4 L POC ABG pO2 Sodium Potassium 6.1 H* Chloride 109.4 H Carbon Dioxide 18 L BUN 30 H Creatinine 2.1 H Glucose 126 H POC Glucose 204 H Calcium Albumin TSH Urine WBC (Auto) Urine Creatinine 07/11/16 07/11/16 07/11/16 17:27 17:55 21:42 WBC RBC Hgb Hct MCH RDW Plt Count Lymph % (Auto) [place] % (Auto) Lymph # [place] # Seg Neutrophils % Seg Neuts % (Manual) Lymphocytes % (Manual) Seg Neutrophils # Seg Neutrophils # Man Lymphocytes # (Manual) D-Dimer POC ABG pH POC ABG pCO2 POC ABG pO2 Sodium 146 H Potassium 6.5 H* Chloride 109.7 H Carbon Dioxide 20 L BUN 32 H Creatinine 2.4 H Glucose 167 H POC Glucose 433 H 142 H Calcium Albumin TSH Urine WBC (Auto) Urine Creatinine 07/12/16 07/12/16 07/12/16 04:34 04:34 05:22 WBC 14.0 H RBC Hgb Hct MCH 27 L RDW 17.6 H Plt Count 113 L Lymph % (Auto) [place] % (Auto) Lymph # [place] # Seg Neutrophils % Seg Neuts % (Manual) 87.0 H Lymphocytes % (Manual) 11.0 L Seg Neutrophils # Seg Neutrophils # Man 12.2 H Lymphocytes # (Manual) D-Dimer POC ABG pH 7.452 H POC ABG pCO2 29.6 L POC ABG pO2 Sodium Potassium 6.8 H* Chloride 110.2 H Carbon Dioxide 16 L BUN 43 H Creatinine 2.9 H Glucose 113 H POC Glucose Calcium Albumin TSH Urine WBC (Auto) Urine Creatinine 07/12/16 07/12/16 07/12/16 13:24 17:28 21:11 WBC RBC Hgb Hct MCH RDW Plt Count Lymph % (Auto) [place] % (Auto) Lymph # [place] # Seg Neutrophils % Seg Neuts % (Manual) Lymphocytes % (Manual) Seg Neutrophils # Seg Neutrophils # Man Lymphocytes # (Manual) D-Dimer POC ABG pH POC ABG pCO2 POC ABG pO2 Sodium 150 H Potassium Chloride 108.9 H Carbon Dioxide 21 L BUN 52 H Creatinine 3.7 H Glucose 143 H POC Glucose 148 H 134 H Calcium 8.0 L Albumin TSH Urine WBC (Auto) Urine Creatinine 07/12/16 07/13/16 07/13/16 21:50 04:40 04:40 WBC 14.0 H RBC 3.50 L Hgb 9.3 L Hct 29.3 L MCH 27 L RDW 17.3 H Plt Count Lymph % (Auto) 4.9 L [place] % (Auto) Lymph # 0.7 L [place] # Seg Neutrophils % 90.0 H Seg Neuts % (Manual) 93.0 H Lymphocytes % (Manual) 5.0 L Seg Neutrophils # 12.6 H Seg Neutrophils # Man 13.0 H Lymphocytes # (Manual) 0.7 L D-Dimer POC ABG pH POC ABG pCO2 POC ABG pO2 Sodium 151 H Potassium Chloride 109.3 H Carbon Dioxide BUN 59 H Creatinine 4.0 H Glucose 63 L POC Glucose 156 H Calcium 7.7 L Albumin TSH Urine WBC (Auto) Urine Creatinine 07/13/16 07/13/16 07/13/16 06:10 06:40 08:03 WBC RBC Hgb Hct MCH RDW Plt Count Lymph % (Auto) [place] % (Auto) Lymph # [place] # Seg Neutrophils % Seg Neuts % (Manual) Lymphocytes % (Manual) Seg Neutrophils # Seg Neutrophils # Man Lymphocytes # (Manual) D-Dimer POC ABG pH POC ABG pCO2 POC ABG pO2 Sodium Potassium Chloride Carbon Dioxide BUN Creatinine Glucose POC Glucose 68 L 176 H 141 H Calcium Albumin TSH Urine WBC (Auto) Urine Creatinine 07/13/16 07/13/16 07/13/16 09:17 12:30 14:15 WBC RBC Hgb Hct MCH RDW Plt Count Lymph % (Auto) [place] % (Auto) Lymph # [place] # Seg Neutrophils % Seg Neuts % (Manual) Lymphocytes % (Manual) Seg Neutrophils # Seg Neutrophils # Man Lymphocytes # (Manual) D-Dimer POC ABG pH 7.475 H 7.529 H POC ABG pCO2 33.4 L 26.8 L POC ABG pO2 110 H 70 L Sodium Potassium Chloride Carbon Dioxide BUN Creatinine Glucose POC Glucose 177 H Calcium Albumin TSH Urine WBC (Auto) Urine Creatinine 07/13/16 07/13/16 07/13/16 15:28 17:57 22:10 WBC RBC Hgb Hct MCH RDW Plt Count Lymph % (Auto) [place] % (Auto) Lymph # [place] # Seg Neutrophils % Seg Neuts % (Manual) Lymphocytes % (Manual) Seg Neutrophils # Seg Neutrophils # Man Lymphocytes # (Manual) D-Dimer POC ABG pH POC ABG pCO2 POC ABG pO2 Sodium Potassium Chloride Carbon Dioxide BUN Creatinine Glucose POC Glucose 122 H 166 H 197 H Calcium Albumin TSH Urine WBC (Auto) Urine Creatinine 07/14/16 07/14/16 07/14/16 02:00 04:21 04:21 WBC RBC 3.01 L Hgb 8.1 L Hct 25.3 L MCH 27 L RDW 17.9 H Plt Count Lymph % (Auto) 6.1 L [place] % (Auto) Lymph # 0.5 L [place] # Seg Neutrophils % 89.9 H Seg Neuts % (Manual) Lymphocytes % (Manual) Seg Neutrophils # Seg Neutrophils # Man Lymphocytes # (Manual) D-Dimer POC ABG pH POC ABG pCO2 POC ABG pO2 Sodium 150 H Potassium Chloride 107.3 H Carbon Dioxide 21 L BUN 82 H Creatinine 4.8 H Glucose 176 H POC Glucose 166 H Calcium 6.8 L Albumin TSH Urine WBC (Auto) Urine Creatinine 07/14/16 07/14/16 07/14/16 05:32 09:42 22:32 WBC RBC Hgb Hct MCH RDW Plt Count Lymph % (Auto) [place] % (Auto) Lymph # [place] # Seg Neutrophils % Seg Neuts % (Manual) Lymphocytes % (Manual) Seg Neutrophils # Seg Neutrophils # Man Lymphocytes # (Manual) D-Dimer POC ABG pH POC ABG pCO2 POC ABG pO2 Sodium Potassium Chloride Carbon Dioxide BUN Creatinine Glucose POC Glucose 202 H 216 H 191 H Calcium Albumin TSH Urine WBC (Auto) Urine Creatinine 07/15/16 07/15/16 07/15/16 04:46 04:56 04:56 WBC RBC 3.04 L Hgb 8.2 L Hct 25.8 L MCH 27 L RDW 17.3 H Plt Count Lymph % (Auto) 4.2 L [place] % (Auto) 11.8 H Lymph # 0.4 L [place] # 1.1 H Seg Neutrophils % 83.9 H Seg Neuts % (Manual) Lymphocytes % (Manual) Seg Neutrophils # Seg Neutrophils # Man Lymphocytes # (Manual) D-Dimer POC ABG pH POC ABG pCO2 POC ABG pO2 Sodium 147 H Potassium 3.4 L Chloride Carbon Dioxide 20 L BUN 109 H Creatinine 5.2 H Glucose 242 H POC Glucose 275 H Calcium 6.3 L Albumin TSH Urine WBC (Auto) Urine Creatinine 07/15/16 07/15/16 07/15/16 11:32 16:52 20:41 WBC RBC Hgb Hct MCH RDW Plt Count Lymph % (Auto) [place] % (Auto) Lymph # [place] # Seg Neutrophils % Seg Neuts % (Manual) Lymphocytes % (Manual) Seg Neutrophils # Seg Neutrophils # Man Lymphocytes # (Manual) D-Dimer POC ABG pH POC ABG pCO2 POC ABG pO2 Sodium Potassium Chloride Carbon Dioxide BUN Creatinine Glucose POC Glucose 250 H 195 H 219 H Calcium Albumin TSH Urine WBC (Auto) Urine Creatinine 07/16/16 07/16/16 07/16/16 00:37 05:47 09:54 WBC RBC 3.20 L Hgb 8.6 L Hct 27.3 L MCH 27 L RDW 17.1 H Plt Count Lymph % (Auto) 4.2 L [place] % (Auto) Lymph # 0.3 L [place] # Seg Neutrophils % 89.6 H Seg Neuts % (Manual) Lymphocytes % (Manual) Seg Neutrophils # Seg Neutrophils # Man Lymphocytes # (Manual) D-Dimer POC ABG pH POC ABG pCO2 POC ABG pO2 Sodium Potassium Chloride Carbon Dioxide BUN Creatinine Glucose POC Glucose 257 H 223 H Calcium Albumin TSH Urine WBC (Auto) Urine Creatinine 07/16/16 07/16/16 09:54 11:54 WBC RBC Hgb Hct MCH RDW Plt Count Lymph % (Auto) [place] % (Auto) Lymph # [place] # Seg Neutrophils % Seg Neuts % (Manual) Lymphocytes % (Manual) Seg Neutrophils # Seg Neutrophils # Man Lymphocytes # (Manual) D-Dimer POC ABG pH POC ABG pCO2 POC ABG pO2 Sodium 148 H Potassium Chloride Carbon Dioxide 21 L BUN 146 H Creatinine 6.0 H Glucose 249 H POC Glucose 294 H Calcium 6.4 L Albumin TSH Urine WBC (Auto) Urine Creatinine
--- NOTE | 2016-07-16 14:16 | Progress Note ---
Assessment and Plan - GABRIELA ? interstitial nephritis with progressive azotemia with depressed mental status, uremic smell. - ? Underlying CKD - Hypernatremia - Angioedema of tongue Acute hypoxic respiratory failure Urinary tract infection - Urine culture positive for Klebsiella - DM2 - Toxic metabolic encephalopathy, ?secondary to uremia. -Hypothyroidism. -Hypertension -Left upper extremity swelling. - Ultrasound showed SVT in the cephalic vein PLAN: - In vew of progressive azotemia will initate dialysis, repeat in am - Start IVF - Increase free water - Monitor renal function for recovery - Continue steroids. - Case d/w family and consent obtained for dialysis - Called vascular and they want patient transferred to ICU to [facility]. This was discussed with Dr De La Vega - Called dialysis nurse regarding orders for dialysis Subjective Date of service: 07/16/16 Principal diagnosis: Acute Respiratory Failure; Angioedema Interval history: Patient noted to be increasingly lethargic. She has slurred speech. No CP or sob. No nausea or vomiting. C/O thirst. No fever or chills Objective - Vital Signs Vital signs: Vital Signs - 12hr 07/16/16 07/16/16 07/16/16 05:53 06:34 08:45 Temperature 97.7 F Pulse Rate 79 Pulse Rate [ 70 72 Right Radial] Respiratory 20 Rate Blood Pressure 167/70 Blood Pressure 174/78 [Right Arm] O2 Sat by Pulse 100 99 Oximetry 07/16/16 07/16/16 12:15 12:34 Temperature 98.5 F Pulse Rate Pulse Rate [ 69 Right Radial] Respiratory 20 Rate Blood Pressure 174/86 Blood Pressure 147/68 [Right Arm] O2 Sat by Pulse Oximetry - General Appearance General appearance: chronically ill, frail EENT: PERRL, other (dry oral mucosa) Neck: no JVD Respiratory: Present: Other (Unlaboured, Few coarse rales in both lung [place]) Cardiology: regular, S1S2, other (No pericardial friction rub. No parasternal heave) Gastrointestinal: Integumentary: other ([place]+) Neurologic: other (Lethargic, moves all extremities. ) Psychiatric: other - Lab 07/16/16 09:54 07/16/16 09:54 Most recent lab results Calcium 6.4 mg/dL (8.4-10.2) L 07/16/16 09:54 Phosphorus 2.8 mg/dL (2.5-4.5) 07/11/16 12:22 Magnesium 1.9 mg/dL (1.7-2.3) 07/11/16 12:22 Urine Creatinine 36.6 mg/dL (0.1-20.0) H 07/06/16 01:18 Urine Sodium 28 mEq/L 07/06/16 01:18
[2016-07-16] MEDS ORDERED: NACL 0.9% 1000 ML 100 ML IV PRN ×2 (14:25→19:36)
--- NOTE | 2016-07-16 15:52 | Operative Report ---
Operative Report Operative Report: EXAM: ULTRASOUND-GUIDED PLACEMENT OF VAS-CATH CLINICAL INDICATION: END-STAGE RENAL DISEASE REQUIRING DIALYSIS ACCESS DATE: 07/16/2016 PROCEDURE: Following an explanation of the risks, benefits and alternatives; written informed consent was obtained. The procedure was performed at bedside in the ICU. Initial ultrasound evaluation of the right neck demonstrated a patent right internal jugular vein. The patient's right neck was prepped and draped in usual sterile fashion. 1% lidocaine was used for anesthesia. Under ultrasound guidance, the right internal jugular vein was cannulated however, all wire would not pass distally secondary to CTA and narrowing therefore decision was made to place the catheter in the left neck. Ultrasound evaluation of the left neck demonstrated a widely patent left internal jugular vein. The left neck was prepped and draped in the usual sterile fashion. 1% lidocaine was used for anesthesia. Under ultrasound guidance, the left internal jugular vein was cannulated with a 7 cm 18-gauge needle. A 0.035 guidewire was advanced centrally D. The needle was removed. Following serial dilation, a 20 cm dialysis catheter with the pigtail was placed over the guidewire and advance centrally. The guidewire was removed. Nonpulsatile blood return from all 3 ports. The catheter was flushed and aspirated with sterile saline and locked with sterile saline. The catheter was securely fastened of the skin surface using 2-0 Ethilon suture and a sterile dressing applied. The patient tolerated the procedure well. There were no immediate post procedure complications. Post procedure chest x-ray was ordered to document placement of the catheter tip IMPRESSION: 1) Ultrasound-Guided Placement of Vas Cath Via the Left Internal Jugular Vein.
--- NOTE | 2016-07-16 18:06 | XRay Report ---
FINAL REPORT PROCEDURE: Chest. TECHNIQUE: Portable AP view. HISTORY: Line placement. COMPARISON: No prior studies are available for comparison. FINDINGS: The heart size is borderline. There is mild tortuosity and calcification in the thoracic aorta. The lungs are clear and well expanded. There are no pleural effusions. There is a Dobhoff feeding tube that terminates in the gastric fundus. There is a double-lumen dialysis type catheter that enters through the left internal jugular vein and terminates in the right atrium. The soft tissues and regional skeleton are unremarkable. IMPRESSION: Satisfactory central line placement.
[2016-07-16] MEDS ORDERED: BENADRYL IV PRN (19:33)
[2016-07-16] MEDS: HEPARIN IV PRN (20:00)
[2016-07-17] MEDS: NOVOLOG SUB-Q SCH ×4 (00:23→16:49)
[2016-07-17] MEDS: APRESOLINE FEEDTUBE SCH ×3 (05:36→23:26)
[2016-07-17] MEDS: HEPARIN SUB-Q SCH ×3 (05:36→23:26)
[2016-07-17] MEDS: SYNTHROID PO SCH (05:42)
[2016-07-17 07:19] LABS: Hematocrit 26.4 % (30.3-42.9); Hemoglobin 8.6 gm/dl (10.1-14.3); Mean Corpuscular HGB Conc 33 % (30-34); Mean Corpuscular Hemoglobin 27 pg (28-32); Mean Corpuscular Volume 83 fl (79-97); Platelet Count 180 K/mm3 (140-440); Red Blood Count 3.17 M/mm3 (3.65-5.03); Red Cell Distribution Width 17.2 % (13.2-15.2); White Blood Count 7.6 K/mm3 (4.5-11.0)
[2016-07-17 07:43] LABS: BUN/Creatinine Ratio 20.71; Calcium 6.2 mg/dL (8.4-10.2); Chloride 100.2 mmol/L (98-107); Magnesium 1.9 mg/dL (1.7-2.3); Phosphorous 5.2 mg/dL (2.5-4.5); Potassium 3.9 mmol/L (3.6-5.0)
[2016-07-17] MEDS: NORMODYNE PO SCH ×3 (07:51→23:55)
--- NOTE | 2016-07-17 08:14 | Vascular Lab Report ---
LEFT UPPER EXTREMITY VENOUS DUPLEX: REASON FOR EXAM: Left upper extremity swelling COMMENTS ON THE LEFT: All arm veins visualized are freely compressible without evidence of internal echogenicity. The subclavian and internal jugular veins are free of thrombus. Flow is spontaneous and phasic throughout. Superficial thrombophlebitis is noted in the cephalic vein in the antecubital vein COMMENTS ON THE RIGHT: The subclavian and internal jugular veins are free of thrombus. IMPRESSION: No evidence of acute or chronic deep venous thrombosis in the left upper extremity. Superficial thrombophlebitis in the left upper extremity
[2016-07-17 08:30] LABS: Anisocytosis 1+; Basophils % (Manual) 0 % (0.0-1.8); Blastocytes % (Manual) 0 %; Eosinophils % (Manual) 0 % (0.0-4.3); Ovalocytes Few
[2016-07-17 08:31] LABS: Tear Drop Cells Few
[2016-07-17 08:32] LABS: Diff Status Complete; Platelet Estimate Consistent w Auto
--- NOTE | 2016-07-17 08:44 | Progress Note ---
Assessment and Plan Assessment and plan: Acute hypoxic respiratory failure - Improved - Off BiPAP - On oxygen support Angioedema - Patient is now extubated and doing well. - We will obtain speech consultation for swallow evaluation. - patient may need BiPAP at night. - GI consult placed for PEG placement Urinary tract infection - Urine culture positive for Klebsiella -Treated with Rocephin, continued Acute on CKD stage IV. - Etiology likely secondary to vasomotor nephropathy versus interstitial nephritis from initial treatment with Bactrim for UTI. - Nephrology following. - Patient is on hemodialysis Hyperkalemia. - Resolved after dialysis DM2 - Monitor blood glucose closely. - SSI Toxic metabolic encephalopathy. - Continue to treat underlying causes. - Continue supportive care Hypothyroidism. - Continue Synthroid. Hypertension - chronic. - Continue antihypertensive medications and monitor. - Hydralazine when necessary Left upper extremity swelling. - Ultrasound showed SVT in the cephalic vein - Doesn't need treatment, pain control Disposition: - Continue inpatient care until PEG is placed and outpatient hemodialysis is arranged. History Interval history: Patient seen and examined this morning. Patient is nonverbal. Hospitalist Physical - Physical exam Narrative exam: Not in cardiopulmonary distress. The patient appeared well nourished and normally developed. Vital signs as documented. Head exam is unremarkable. No scleral icterus . Neck is without jugular venous distension, thyromegaly, or carotid bruits. Lungs are clear to auscultation. Cardiac exam reveals regular rate and Rhythm. First and second heart sounds normal. No murmurs, rubs or gallops. Abdominal exam reveals normal bowel sounds, no masses, no organomegaly and no aortic enlargement. Extremities swelling of the left arm. SUPERINTENDENT SANITATION: Patient is nonverbal. - Constitutional Vitals: Temp Pulse Resp BP Pulse Ox 98.8 F 72 22 122/76 97 07/17/16 04:00 07/17/16 07:51 07/17/16 06:00 07/17/16 07:51 07/17/16 04:00 General appearance: Present: no acute distress Results - Labs CBC & Chem 7: 07/17/16 06:52 07/17/16 06:52 Labs: Laboratory Last Values WBC 7.6 K/mm3 (4.5-11.0) 07/17/16 06:52 RBC 3.17 M/mm3 (3.65-5.03) L 07/17/16 06:52 Hgb 8.6 gm/dl (10.1-14.3) L 07/17/16 06:52 Hct 26.4 % (30.3-42.9) L 07/17/16 06:52 MCV 83 fl (79-97) 07/17/16 06:52 MCH 27 pg (28-32) L 07/17/16 06:52 MCHC 33 % (30-34) 07/17/16 06:52 RDW 17.2 % (13.2-15.2) H 07/17/16 06:52 Plt Count 180 K/mm3 (140-440) 07/17/16 06:52 Lymph % (Auto) 4.2 % (13.4-35.0) L 07/16/16 09:54 [place] % (Auto) 6.1 % (0.0-7.3) 07/16/16 09:54 Eos % (Auto) 0.0 % (0.0-4.3) 07/16/16 09:54 Baso % (Auto) 0.1 % (0.0-1.8) 07/16/16 09:54 Lymph # 0.3 K/mm3 (1.2-5.4) L 07/16/16 09:54 [place] # 0.5 K/mm3 (0.0-0.8) 07/16/16 09:54 Eos # 0.0 K/mm3 (0.0-0.4) 07/16/16 09:54 Baso # 0.0 K/mm3 (0.0-0.1) 07/16/16 09:54 Add Manual Diff Complete 07/17/16 06:52 Total Counted 100 07/17/16 06:52 Seg Neutrophils % 89.6 % (40.0-70.0) H 07/16/16 09:54 Seg Neuts % (Manual) 90.0 % (40.0-70.0) H 07/17/16 06:52 Band Neutrophils % 0 % 07/17/16 06:52 Lymphocytes % (Manual) 8.0 % (13.4-35.0) L 07/17/16 06:52 Reactive Lymphs % (Man) 0 % 07/17/16 06:52 Monocytes % (Manual) 2.0 % (0.0-7.3) 07/17/16 06:52 Eosinophils % (Manual) 0 % (0.0-4.3) 07/17/16 06:52 Basophils % (Manual) 0 % (0.0-1.8) 07/17/16 06:52 Metamyelocytes % 0 % 07/17/16 06:52 Myelocytes % 0 % 07/17/16 06:52 Promyelocytes % 0 % 07/17/16 06:52 Blast Cells % 0 % 07/17/16 06:52 Nucleated RBC % Not Reportable 07/17/16 06:52 Seg Neutrophils # 7.5 K/mm3 (1.8-7.7) 07/16/16 09:54 Seg Neutrophils # Man 6.8 K/mm3 (1.8-7.7) 07/17/16 06:52 Band Neutrophils # 0.0 K/mm3 07/17/16 06:52 Lymphocytes # (Manual) 0.6 K/mm3 (1.2-5.4) L 07/17/16 06:52 Abs React Lymphs (Man) 0.0 K/mm3 07/17/16 06:52 Monocytes # (Manual) 0.2 K/mm3 (0.0-0.8) 07/17/16 06:52 Eosinophils # (Manual) 0.0 K/mm3 (0.0-0.4) 07/17/16 06:52 Basophils # (Manual) 0.0 K/mm3 (0.0-0.1) 07/17/16 06:52 Metamyelocytes # 0.0 K/mm3 07/17/16 06:52 Myelocytes # 0.0 K/mm3 07/17/16 06:52 Promyelocytes # 0.0 K/mm3 07/17/16 06:52 Blast Cells # 0.0 K/mm3 07/17/16 06:52 WBC Morphology Not Reportable 07/17/16 06:52 Hypersegmented Neuts Not Reportable 07/17/16 06:52 Hyposegmented Neuts Not Reportable 07/17/16 06:52 Hypogranular Neuts Not Reportable 07/17/16 06:52 Smudge Cells Not Reportable 07/17/16 06:52 Toxic Granulation Not Reportable 07/17/16 06:52 Toxic Vacuolation Not Reportable 07/17/16 06:52 Dohle Bodies Not Reportable 07/17/16 06:52 Pelger-Huet Anomaly Not Reportable 07/17/16 06:52 [place] Rods Not Reportable 07/17/16 06:52 Platelet Estimate Consistent w auto 07/17/16 06:52 Clumped Platelets Not Reportable 07/17/16 06:52 Plt Clumps, EDTA Not Reportable 07/17/16 06:52 Large Platelets Not Reportable 07/17/16 06:52 Giant Platelets Not Reportable 07/17/16 06:52 Platelet Satelliting Not Reportable 07/17/16 06:52 Plt Morphology Comment Not Reportable 07/17/16 06:52 RBC Morphology Not Reportable 07/17/16 06:52 Dimorphic RBCs Not Reportable 07/17/16 06:52 Polychromasia Not Reportable 07/17/16 06:52 Hypochromasia Not Reportable 07/17/16 06:52 Poikilocytosis Not Reportable 07/17/16 06:52 Anisocytosis 1+ 07/17/16 06:52 Microcytosis Not Reportable 07/17/16 06:52 Macrocytosis Not Reportable 07/17/16 06:52 Spherocytes Not Reportable 07/17/16 06:52 Pappenheimer Bodies Not Reportable 07/17/16 06:52 Sickle Cells Not Reportable 07/17/16 06:52 Target Cells Not Reportable 07/17/16 06:52 Tear Drop Cells Few 07/17/16 06:52 Ovalocytes Few 07/17/16 06:52 Helmet Cells Not Reportable 07/17/16 06:52 [place] Bodies Not Reportable 07/17/16 06:52 [place] Rings Not Reportable 07/17/16 06:52 [place] Cells Not Reportable 07/17/16 06:52 Bite Cells Not Reportable 07/17/16 06:52 Crenated Cell Not Reportable 07/17/16 06:52 Elliptocytes Not Reportable 07/17/16 06:52 Acanthocytes (Spur) Not Reportable 07/17/16 06:52 Rouleaux Not Reportable 07/17/16 06:52 Hemoglobin C Crystals Not Reportable 07/17/16 06:52 Schistocytes Not Reportable 07/17/16 06:52 Malaria parasites Not Reportable 07/17/16 06:52 Kaushik Bodies Not Reportable 07/17/16 06:52 Hem Pathologist Commnt No 07/17/16 06:52 D-Dimer 751.80 ng/mlDDU (0-234) H 07/11/16 12:22 POC ABG pH 7.529 (7.35-7.45) H 07/13/16 14:15 POC ABG pCO2 26.8 (35-45) L 07/13/16 14:15 POC ABG pO2 70 (80-105) L 07/13/16 14:15 POC ABG HCO3 22.3 07/13/16 14:15 POC ABG Total CO2 23 07/13/16 14:15 POC ABG O2 Sat 96 07/13/16 14:15 POC ABG Base Excess 0 07/13/16 14:15 FiO2 21 % 07/13/16 14:15 Sodium 142 mmol/L (137-145) 07/17/16 06:52 Potassium 3.9 mmol/L (3.6-5.0) 07/17/16 06:52 Chloride 100.2 mmol/L (98-107) 07/17/16 06:52 Carbon Dioxide 26 mmol/L (22-30) 07/17/16 06:52 Anion Gap 20 mmol/L 07/17/16 06:52 BUN 87 mg/dL (7-17) H 07/17/16 06:52 Creatinine 4.2 mg/dL (0.7-1.2) H 07/17/16 06:52 Estimated GFR 13 ml/min 07/17/16 06:52 BUN/Creatinine Ratio 20.71 % 07/17/16 06:52 Glucose 231 mg/dL (65-100) H 07/17/16 06:52 POC Glucose 208 (70-105) H 07/17/16 05:53 Hemoglobin A1c 5.6 % (4-6) 07/15/16 04:56 Lactic Acid 1.3 mmol/L (0.7-2.0) 07/11/16 12:22 Calcium 6.2 mg/dL (8.4-10.2) L 07/17/16 06:52 Phosphorus 5.2 mg/dL (2.5-4.5) H 07/17/16 06:52 Magnesium 1.9 mg/dL (1.7-2.3) 07/17/16 06:52 Total Bilirubin < 0.2 mg/dL (0.1-1.2) 07/10/16 06:43 AST 17 units/L (5-40) 07/10/16 06:43 ALT 9 units/L (7-56) 07/10/16 06:43 Alkaline Phosphatase 62 units/L (35-129) 07/10/16 06:43 Total Creatine Kinase 131 units/L (30-135) 07/11/16 12:22 CK-MB (CK-2) 2.0 ng/mL (0.0-4.0) 07/11/16 12:22 CK-MB (CK-2) Rel Index 1.5 (0-4) 07/11/16 12:22 Troponin T < 0.010 ng/mL (0.00-0.029) 07/11/16 12:22 Total Protein 6.7 g/dL (6.3-8.2) 07/10/16 06:43 Albumin 3.5 g/dL (3.9-5) L 07/10/16 06:43 Albumin/Globulin Ratio 1.1 % 07/10/16 06:43 TSH 8.090 mlU/mL (0.270-4.200) H 07/05/16 05:08 Urine Color Straw (Yellow) 07/06/16 01:18 Urine Turbidity Clear (Clear) 07/06/16 01:18 Urine pH 6.0 (5.0-7.0) 07/06/16 01:18 Ur Specific [place] 1.003 (1.003-1.030) 07/06/16 01:18 Urine Protein <15 mg/dl mg/dL (Negative) 07/06/16 01:18 Urine Glucose (UA) Neg mg/dL (Negative) 07/06/16 01:18 Urine Ketones Neg mg/dL (Negative) 07/06/16 01:18 Urine Blood Neg (Negative) 07/06/16 01:18 Urine Nitrite Neg (Negative) 07/06/16 01:18 Urine Bilirubin Neg (Negative) 07/06/16 01:18 Urine Urobilinogen < 2.0 mg/dL (<2.0) 07/06/16 01:18 Ur Leukocyte Esterase Mod (Negative) 07/06/16 01:18 Urine WBC (Auto) 7.0 /HPF (0.0-6.0) H 07/06/16 01:18 Urine RBC (Auto) 3.0 /HPF (0.0-6.0) 07/06/16 01:18 U Epithel Cells (Auto) 1.0 /HPF (0-13.0) 06/30/16 11:34 Urine Bacteria (Auto) 1+ /HPF (Negative) 06/30/16 11:34 Urine Eosinophils None seen (None Seen) 07/06/16 01:18 Urine Creatinine 36.6 mg/dL (0.1-20.0) H 07/06/16 01:18 Urine Microalbumin 6.5 mg/dL (0.1-34.0) 07/06/16 01:18 Microalb/Creat Ratio 177.5 ug/mg 07/06/16 01:18 Urine Sodium 28 mEq/L 07/06/16 01:18 Urine Opiates Screen Presumptive negative 06/30/16 11:34 Urine Methadone Screen Presumptive negative 06/30/16 11:34 Acetaminophen < 15.0 ug/mL (10.0-30.0) 06/30/16 12:01 Ur Barbiturates Screen Presumptive negative 06/30/16 11:34 Ur Phencyclidine Scrn Presumptive negative 06/30/16 11:34 Ur Amphetamines Screen Presumptive negative 06/30/16 11:34 U Benzodiazepines Scrn Presumptive negative 06/30/16 11:34 Urine Cocaine Screen Presumptive negative 06/30/16 11:34 U Marijuana (THC) Screen Presumptive negative 06/30/16 11:34 Drugs of Abuse Note Disclamer 06/30/16 11:34 Plasma/Serum Alcohol < 0.01 gm% (0-0.07) 06/30/16 12:01 Hepatitis A IgM Ab -1 (NonReactive) 07/16/16 19:08 Hep Bs Antigen Non-reactive (Negative) 07/16/16 19:08 Hep B Core IgM Ab Non-reactive (NonReactive) 07/16/16 19:08 Hepatitis C Antibody Non-reactive (NonReactive) 07/16/16 19:08
[2016-07-17] MEDS: NEURONTIN PO SCH (10:55)
[2016-07-17] MEDS: PEPCID PO SCH (10:55)
--- NOTE | 2016-07-17 12:03 | Progress Note ---
Assessment and Plan - Patient Problems (1) GABRIELA (acute kidney injury) Current Visit: Yes Status: Acute Plan to address problem: GABRIELA /CKD , initiated on dialysis yesterday Continue supportive [employer] Avoid nephrotoxic agent Monitor for recovry of renal function Repeat HD today (2) Chronic renal insufficiency Current Visit: Yes Status: Acute Subjective Date of service: 07/17/16 Principal diagnosis: Acute Respiratory Failure; Angioedema Interval history: Open eyes, non verbal Objective - Exam Narrative Exam: Middle-aged female non verbal HEENT normocephalic/atraumatic pink conjunctiva anicteric sclera, Neck is supple no JVD trachea central, Chest is bilateral coarse breath sound equal chest expansion, Heart S1-S2 regular rate and rhythm, Abdomen is soft nontender no organomegaly, Extremities no edema cyanosis or clubbing, Neuro open eyes, does not follow commands - Vital Signs Vital signs: Vital Signs - 12hr 07/17/16 07/17/16 07/17/16 00:00 04:00 06:00 Temperature 98.4 F 98.8 F Pulse Rate Pulse Rate [ 72 Right Radial] Pulse Rate [ 72 76 Right] Respiratory 18 20 22 Rate Blood Pressure 125/59 118/73 Blood Pressure 125/59 [Right Arm] O2 Sat by Pulse 98 97 Oximetry 07/17/16 07/17/16 07:51 08:17 Temperature 98.3 F Pulse Rate 72 Pulse Rate [ 80 Right Radial] Pulse Rate [ Right] Respiratory 20 Rate Blood Pressure 122/76 Blood Pressure 138/65 [Right Arm] O2 Sat by Pulse 100 Oximetry - Lab 07/17/16 06:52 07/17/16 06:52 Most recent lab results Calcium 6.2 mg/dL (8.4-10.2) L 07/17/16 06:52 Phosphorus 5.2 mg/dL (2.5-4.5) H 07/17/16 06:52 Magnesium 1.9 mg/dL (1.7-2.3) 07/17/16 06:52 Urine Creatinine 36.6 mg/dL (0.1-20.0) H 07/06/16 01:18 Urine Sodium 28 mEq/L 07/06/16 01:18
[2016-07-17] MEDS ORDERED: NACL 0.9% 1000 ML 100 ML IV PRN (12:10)
--- NOTE | 2016-07-17 12:48 | Progress Note ---
Subjective - Reason for Consult Consult date: 07/17/16 Reason for consult: Bipolar, now encephalopathic s/p respiratory failure, renal failure on hd Requesting physician: GURPREET NUNEZ - Chief Complaint Chief complaint: non verbal but nods head 'yes' when asked if she's okay. 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 Admitted to hospital for HTN, UTI and NH placement. BS went to 20 and admitted CCU on vent for few days, Head CT NAF, now extubated and back on floor, nonverbal w Dobhoff tube and renal failure on HD. Mental Status Exam - Vital signs Last Vital Signs Temp 98.6 F 07/17/16 12:20 Pulse 72 07/17/16 12:20 Resp 20 07/17/16 12:20 BP 123/60 07/17/16 12:20 Pulse Ox 100 07/17/16 08:17 - Exam Narrative exam: Alert and oriented to self (nods yes that her name is Carmen). Makes some lethargic eye contact. Accd to nursing was more alert earlier, but very sleepy now, difficult to wake. Unable to speak, angioedema. Affect is blunted. Thought processing impaired. Her memory/Insight and judgment are impaired. Hand restraint to prevent her from pulling out her tubes. No agitation. Orientation: person Affect: flat Mood: calm Thought content: other (nods yes that she's okay) Thought Process: Disoriented Perceptions: none Speech: other (non verbal) Concentration: unable to pay attention (sleepy) Motor activity: lethargic Level of consciousness: confused Memory: Recent Impaired, Remote Impaired Sleep Symptoms: None Interaction: apathetic Mini mental status exam(if necessary): 0-17 Assessment and Plan ASSESSMENT Encephalopathy, multifactoral s/p Acute hypoxic respiratory failure. Urinary tract infection. Treated. Acute on CKD stage IV. Hyperkalemia. 6.8. Hypernatremia Hypothyroidism Bipolar Disorder Dementia 69yo F admitted with: UTI, HTN, need for NH placement, now s/p respiratory failure with NG tube Family informed staff they would not be able to care for her at home anymore as they were being evicted. - Patient Problems (1) Encephalopathy acute Current Visit: Yes Status: Acute Plan to address problem: RECOMMEND: staffed with supervising psych MD, Dr. Lluvia Hernandez 1. Reduce Zyprexa to 5mg po HS 2. Zyprexa Zydis 5mg SL Q12H PRN agitation/psychosis 3. NH placement 4. Psych will follow
[2016-07-17] MEDS: HEPARIN IV PRN (21:55)
--- NOTE | 2016-07-17 22:38 | Progress Note ---
Assessment and Plan Patient just came from Dialysis. Patient sleepy, resting on 2 litres O2. O2 satuaration 100% on 2 litres O2.No acute respiratory distress. - Patient Problems (1) Angioedema Current Visit: Yes Status: Acute Plan to address problem: Improved. (2) Acute respiratory failure Current Visit: Yes Status: Acute Plan to address problem: Improved. O2 satuaration 100% on 2 litres O2. Patient is on I/V solumedral. Xopenex inhalor HFA 2 puffs po q 8 hours prn for shortness of breath. (3) GABRIELA (acute kidney injury) Current Visit: Yes Status: Acute Plan to address problem: Patient is on dialysis. Mangement as per nephrology. (4) Encephalopathy acute Current Visit: Yes Status: Acute Plan to address problem: Management as per primary care. (5) Hypertension Current Visit: Yes Status: Acute Plan to address problem: Management as per primary care. (6) Diabetes Current Visit: No Status: Acute Qualifiers: Diabetes mellitus type: type 2 Diabetes mellitus complication status: with kidney complications Diabetes mellitus complication detail: with chronic kidney disease Qualified Code(s): E11.22 - Type 2 diabetes mellitus with diabetic chronic kidney disease Plan to address problem: Management as per primary care. (7) Bipolar disorder Current Visit: No Status: Acute Qualifiers: Active/Remission status: remission status unspecified Most recent bipolar episode type: most recent episode unspecified type Plan to address problem: Management as per primary care and psychiatry. Subjective Date of service: 07/17/16 Principal diagnosis: Acute Respiratory Failure; Angioedema Interval history: Patient just came from Dialysis. Patient sleepy, resting on 2 litres O2. O2 satuaration 100% on 2 litres O2.No acute respiratory distress. Objective Vital Signs - 12hr 07/17/16 07/17/16 07/17/16 12:20 16:13 18:55 Temperature 98.6 F 99.3 F 98.4 F Pulse Rate 75 Pulse Rate [ 75 Apical] Pulse Rate [ 72 Right Radial] Respiratory 20 20 18 Rate Blood Pressure 156/77 Blood Pressure 123/60 144/65 [Right Arm] 07/17/16 07/17/16 07/17/16 19:00 19:15 19:30 Temperature Pulse Rate 76 80 82 Pulse Rate [ Apical] Pulse Rate [ Right Radial] Respiratory Rate Blood Pressure 153/83 149/82 146/77 Blood Pressure [Right Arm] 07/17/16 07/17/16 07/17/16 19:45 20:00 20:15 Temperature Pulse Rate 92 H 81 81 Pulse Rate [ Apical] Pulse Rate [ Right Radial] Respiratory Rate Blood Pressure 117/69 112/68 134/75 Blood Pressure [Right Arm] 07/17/16 07/17/16 07/17/16 20:30 20:45 21:00 Temperature Pulse Rate 86 81 83 Pulse Rate [ Apical] Pulse Rate [ Right Radial] Respiratory Rate Blood Pressure 133/73 126/72 120/69 Blood Pressure [Right Arm] 07/17/16 07/17/16 07/17/16 21:15 21:30 21:45 Temperature Pulse Rate 81 81 92 H Pulse Rate [ Apical] Pulse Rate [ Right Radial] Respiratory Rate Blood Pressure 122/69 118/71 115/68 Blood Pressure [Right Arm] 07/17/16 07/17/16 21:55 22:00 Temperature 98.1 F Pulse Rate 90 80 Pulse Rate [ Apical] Pulse Rate [ Right Radial] Respiratory 18 Rate Blood Pressure 130/68 145/70 Blood Pressure [Right Arm] Constitutional: no acute distress, lethargic Eyes: non-icteric ENT: oropharynx moist Neck: supple, no lymphadenopathy Effort: normal Ascultation: Bilateral: diminished breath sounds Cardiovascular: regular rate and rhythm Gastrointestinal: normoactive bowel sounds, soft, non-tender, non-distended Integumentary: normal Extremities: no cyanosis, no edema, pulses normal, no ischemia or petechiae Neurologic: non-focal exam (grossly), pupils equal and round, CN II-XII normal Psychiatric: anxious CBC and BMP: 07/17/16 06:52 07/17/16 06:52 ABG, PT/INR, D-dimer: ABG POC ABG pH 7.529 (7.35-7.45) H 07/13/16 14:15 POC ABG pCO2 26.8 (35-45) L 07/13/16 14:15 POC ABG pO2 70 (80-105) L 07/13/16 14:15 POC ABG HCO3 22.3 07/13/16 14:15 POC ABG Total CO2 23 07/13/16 14:15 POC ABG O2 Sat 96 07/13/16 14:15 PT/INR, D-dimer D-Dimer 751.80 ng/mlDDU (0-234) H 07/11/16 12:22 Abnormal lab findings: Abnormal Labs 07/03/16 07/03/16 07/04/16 14:34 14:34 06:21 WBC 3.9 L RBC 3.16 L 3.04 L Hgb 8.5 L 8.0 L Hct 26.8 L 25.6 L MCH 27 L 26 L RDW 16.5 H 16.2 H Plt Count Lymph % (Auto) [place] % (Auto) 10.7 H 10.7 H Lymph # 1.0 L [place] # Seg Neutrophils % Seg Neuts % (Manual) Lymphocytes % (Manual) Seg Neutrophils # Seg Neutrophils # Man Lymphocytes # (Manual) D-Dimer POC ABG pH POC ABG pCO2 POC ABG pO2 Sodium Potassium Chloride 107.6 H Carbon Dioxide BUN 27 H Creatinine 2.6 H Glucose POC Glucose Calcium 8.0 L Phosphorus Albumin TSH Urine WBC (Auto) Urine Creatinine 07/04/16 07/04/16 07/04/16 06:21 11:30 16:33 WBC RBC Hgb Hct MCH RDW Plt Count Lymph % (Auto) [place] % (Auto) Lymph # [place] # Seg Neutrophils % Seg Neuts % (Manual) Lymphocytes % (Manual) Seg Neutrophils # Seg Neutrophils # Man Lymphocytes # (Manual) D-Dimer POC ABG pH POC ABG pCO2 POC ABG pO2 Sodium Potassium Chloride 107.4 H Carbon Dioxide 21 L BUN 27 H Creatinine 2.7 H Glucose POC Glucose 110 H 106 H Calcium 7.8 L Phosphorus Albumin TSH Urine WBC (Auto) Urine Creatinine 07/05/16 07/05/16 07/05/16 05:08 05:08 05:08 WBC 4.0 L RBC 2.87 L Hgb 7.7 L Hct 24.2 L MCH 27 L RDW 16.0 H Plt Count Lymph % (Auto) [place] % (Auto) Lymph # [place] # Seg Neutrophils % Seg Neuts % (Manual) Lymphocytes % (Manual) Seg Neutrophils # Seg Neutrophils # Man Lymphocytes # (Manual) D-Dimer POC ABG pH POC ABG pCO2 POC ABG pO2 Sodium Potassium Chloride Carbon Dioxide 21 L BUN 32 H Creatinine 3.7 H Glucose POC Glucose Calcium 7.8 L Phosphorus Albumin TSH 8.090 H Urine WBC (Auto) Urine Creatinine 07/05/16 07/06/16 07/06/16 11:45 01:18 01:18 WBC RBC Hgb 8.3 L Hct 25.9 L MCH RDW Plt Count Lymph % (Auto) [place] % (Auto) Lymph # [place] # Seg Neutrophils % Seg Neuts % (Manual) Lymphocytes % (Manual) Seg Neutrophils # Seg Neutrophils # Man Lymphocytes # (Manual) D-Dimer POC ABG pH POC ABG pCO2 POC ABG pO2 Sodium Potassium Chloride Carbon Dioxide BUN Creatinine Glucose POC Glucose Calcium Phosphorus Albumin TSH Urine WBC (Auto) 7.0 H Urine Creatinine 36.6 H 07/06/16 07/06/16 07/06/16 05:55 05:55 16:07 WBC 3.0 L RBC 2.79 L Hgb 7.5 L Hct 23.5 L MCH 27 L RDW 16.5 H Plt Count Lymph % (Auto) [place] % (Auto) Lymph # [place] # Seg Neutrophils % Seg Neuts % (Manual) Lymphocytes % (Manual) Seg Neutrophils # Seg Neutrophils # Man Lymphocytes # (Manual) D-Dimer POC ABG pH POC ABG pCO2 POC ABG pO2 Sodium Potassium Chloride 109.3 H Carbon Dioxide 20 L BUN 32 H Creatinine 3.4 H Glucose POC Glucose 117 H Calcium 7.5 L Phosphorus Albumin TSH Urine WBC (Auto) Urine Creatinine 07/07/16 07/07/16 07/08/16 06:19 16:13 00:09 WBC RBC Hgb Hct MCH RDW Plt Count Lymph % (Auto) [place] % (Auto) Lymph # [place] # Seg Neutrophils % Seg Neuts % (Manual) Lymphocytes % (Manual) Seg Neutrophils # Seg Neutrophils # Man Lymphocytes # (Manual) D-Dimer POC ABG pH POC ABG pCO2 POC ABG pO2 Sodium Potassium Chloride 111.1 H Carbon Dioxide 20 L BUN 31 H Creatinine 3.1 H Glucose POC Glucose 108 H 134 H Calcium 8.0 L Phosphorus Albumin TSH Urine WBC (Auto) Urine Creatinine 07/08/16 07/08/16 07/08/16 11:39 16:31 21:22 WBC RBC Hgb Hct MCH RDW Plt Count Lymph % (Auto) [place] % (Auto) Lymph # [place] # Seg Neutrophils % Seg Neuts % (Manual) Lymphocytes % (Manual) Seg Neutrophils # Seg Neutrophils # Man Lymphocytes # (Manual) D-Dimer POC ABG pH POC ABG pCO2 POC ABG pO2 Sodium Potassium Chloride Carbon Dioxide BUN Creatinine Glucose POC Glucose 119 H 130 H 152 H Calcium Phosphorus Albumin TSH Urine WBC (Auto) Urine Creatinine 07/09/16 07/09/16 07/09/16 05:52 05:52 06:02 WBC RBC 3.55 L Hgb 9.4 L Hct MCH 27 L RDW 17.1 H Plt Count Lymph % (Auto) [place] % (Auto) Lymph # [place] # Seg Neutrophils % Seg Neuts % (Manual) Lymphocytes % (Manual) Seg Neutrophils # Seg Neutrophils # Man Lymphocytes # (Manual) D-Dimer POC ABG pH POC ABG pCO2 POC ABG pO2 Sodium 147 H Potassium 5.4 H Chloride 112.8 H Carbon Dioxide 21 L BUN 30 H Creatinine 2.5 H Glucose 21 L* POC Glucose < 40 L Calcium Phosphorus Albumin TSH Urine WBC (Auto) Urine Creatinine 07/09/16 07/09/16 07/10/16 11:31 16:50 05:23 WBC RBC Hgb Hct MCH RDW Plt Count Lymph % (Auto) [place] % (Auto) Lymph # [place] # Seg Neutrophils % Seg Neuts % (Manual) Lymphocytes % (Manual) Seg Neutrophils # Seg Neutrophils # Man Lymphocytes # (Manual) D-Dimer POC ABG pH POC ABG pCO2 POC ABG pO2 Sodium Potassium Chloride Carbon Dioxide BUN Creatinine Glucose POC Glucose 114 H 149 H < 40 L Calcium Phosphorus Albumin TSH Urine WBC (Auto) Urine Creatinine 07/10/16 07/10/16 07/10/16 06:03 06:43 06:43 WBC RBC 2.90 L Hgb 7.7 L Hct 25.0 L MCH 27 L RDW 17.0 H Plt Count Lymph % (Auto) [place] % (Auto) 10.4 H Lymph # 1.1 L [place] # Seg Neutrophils % Seg Neuts % (Manual) Lymphocytes % (Manual) Seg Neutrophils # Seg Neutrophils # Man Lymphocytes # (Manual) D-Dimer POC ABG pH POC ABG pCO2 POC ABG pO2 Sodium 148 H Potassium 5.1 H Chloride 111.7 H Carbon Dioxide 20 L BUN 31 H Creatinine 2.4 H Glucose POC Glucose 211 H Calcium 8.0 L Phosphorus Albumin 3.5 L TSH Urine WBC (Auto) Urine Creatinine 07/10/16 07/11/16 07/11/16 14:55 05:37 05:47 WBC RBC Hgb 7.9 L Hct 25.5 L MCH RDW Plt Count Lymph % (Auto) [place] % (Auto) Lymph # [place] # Seg Neutrophils % Seg Neuts % (Manual) Lymphocytes % (Manual) Seg Neutrophils # Seg Neutrophils # Man Lymphocytes # (Manual) D-Dimer POC ABG pH POC ABG pCO2 POC ABG pO2 Sodium Potassium Chloride Carbon Dioxide BUN Creatinine Glucose POC Glucose < 40 L > 500 H Calcium Phosphorus Albumin TSH Urine WBC (Auto) Urine Creatinine 07/11/16 07/11/16 07/11/16 05:56 07:42 07:48 WBC RBC Hgb Hct MCH RDW Plt Count Lymph % (Auto) [place] % (Auto) Lymph # [place] # Seg Neutrophils % Seg Neuts % (Manual) Lymphocytes % (Manual) Seg Neutrophils # Seg Neutrophils # Man Lymphocytes # (Manual) D-Dimer POC ABG pH POC ABG pCO2 POC ABG pO2 Sodium Potassium Chloride Carbon Dioxide BUN Creatinine Glucose POC Glucose 262 H 56 L 54 L Calcium Phosphorus Albumin TSH Urine WBC (Auto) Urine Creatinine 07/11/16 07/11/16 07/11/16 08:34 08:50 09:53 WBC RBC Hgb Hct MCH RDW Plt Count Lymph % (Auto) [place] % (Auto) Lymph # [place] # Seg Neutrophils % Seg Neuts % (Manual) Lymphocytes % (Manual) Seg Neutrophils # Seg Neutrophils # Man Lymphocytes # (Manual) D-Dimer POC ABG pH POC ABG pCO2 31.1 L POC ABG pO2 108 H Sodium Potassium Chloride Carbon Dioxide BUN Creatinine Glucose POC Glucose 110 H 68 L Calcium Phosphorus Albumin TSH Urine WBC (Auto) Urine Creatinine 07/11/16 07/11/16 07/11/16 11:48 12:22 12:22 WBC 11.6 H RBC Hgb Hct MCH 27 L RDW 17.2 H Plt Count Lymph % (Auto) [place] % (Auto) Lymph # [place] # Seg Neutrophils % Seg Neuts % (Manual) 91.0 H Lymphocytes % (Manual) 5.0 L Seg Neutrophils # 10.8 H Seg Neutrophils # Man 10.6 H Lymphocytes # (Manual) 0.6 L D-Dimer 751.80 H POC ABG pH POC ABG pCO2 POC ABG pO2 Sodium Potassium Chloride Carbon Dioxide BUN Creatinine Glucose POC Glucose 118 H Calcium Phosphorus Albumin TSH Urine WBC (Auto) Urine Creatinine 07/11/16 07/11/16 07/11/16 12:22 12:29 15:23 WBC RBC Hgb Hct MCH RDW Plt Count Lymph % (Auto) [place] % (Auto) Lymph # [place] # Seg Neutrophils % Seg Neuts % (Manual) Lymphocytes % (Manual) Seg Neutrophils # Seg Neutrophils # Man Lymphocytes # (Manual) D-Dimer POC ABG pH POC ABG pCO2 28.4 L POC ABG pO2 Sodium Potassium 6.1 H* Chloride 109.4 H Carbon Dioxide 18 L BUN 30 H Creatinine 2.1 H Glucose 126 H POC Glucose 204 H Calcium Phosphorus Albumin TSH Urine WBC (Auto) Urine Creatinine 07/11/16 07/11/16 07/11/16 17:27 17:55 21:42 WBC RBC Hgb Hct MCH RDW Plt Count Lymph % (Auto) [place] % (Auto) Lymph # [place] # Seg Neutrophils % Seg Neuts % (Manual) Lymphocytes % (Manual) Seg Neutrophils # Seg Neutrophils # Man Lymphocytes # (Manual) D-Dimer POC ABG pH POC ABG pCO2 POC ABG pO2 Sodium 146 H Potassium 6.5 H* Chloride 109.7 H Carbon Dioxide 20 L BUN 32 H Creatinine 2.4 H Glucose 167 H POC Glucose 433 H 142 H Calcium Phosphorus Albumin TSH Urine WBC (Auto) Urine Creatinine 07/12/16 07/12/16 07/12/16 04:34 04:34 05:22 WBC 14.0 H RBC Hgb Hct MCH 27 L RDW 17.6 H Plt Count 113 L Lymph % (Auto) [place] % (Auto) Lymph # [place] # Seg Neutrophils % Seg Neuts % (Manual) 87.0 H Lymphocytes % (Manual) 11.0 L Seg Neutrophils # Seg Neutrophils # Man 12.2 H Lymphocytes # (Manual) D-Dimer POC ABG pH 7.452 H POC ABG pCO2 29.6 L POC ABG pO2 Sodium Potassium 6.8 H* Chloride 110.2 H Carbon Dioxide 16 L BUN 43 H Creatinine 2.9 H Glucose 113 H POC Glucose Calcium Phosphorus Albumin TSH Urine WBC (Auto) Urine Creatinine 07/12/16 07/12/16 07/12/16 13:24 17:28 21:11 WBC RBC Hgb Hct MCH RDW Plt Count Lymph % (Auto) [place] % (Auto) Lymph # [place] # Seg Neutrophils % Seg Neuts % (Manual) Lymphocytes % (Manual) Seg Neutrophils # Seg Neutrophils # Man Lymphocytes # (Manual) D-Dimer POC ABG pH POC ABG pCO2 POC ABG pO2 Sodium 150 H Potassium Chloride 108.9 H Carbon Dioxide 21 L BUN 52 H Creatinine 3.7 H Glucose 143 H POC Glucose 148 H 134 H Calcium 8.0 L Phosphorus Albumin TSH Urine WBC (Auto) Urine Creatinine 07/12/16 07/13/16 07/13/16 21:50 04:40 04:40 WBC 14.0 H RBC 3.50 L Hgb 9.3 L Hct 29.3 L MCH 27 L RDW 17.3 H Plt Count Lymph % (Auto) 4.9 L [place] % (Auto) Lymph # 0.7 L [place] # Seg Neutrophils % 90.0 H Seg Neuts % (Manual) 93.0 H Lymphocytes % (Manual) 5.0 L Seg Neutrophils # 12.6 H Seg Neutrophils # Man 13.0 H Lymphocytes # (Manual) 0.7 L D-Dimer POC ABG pH POC ABG pCO2 POC ABG pO2 Sodium 151 H Potassium Chloride 109.3 H Carbon Dioxide BUN 59 H Creatinine 4.0 H Glucose 63 L POC Glucose 156 H Calcium 7.7 L Phosphorus Albumin TSH Urine WBC (Auto) Urine Creatinine 07/13/16 07/13/16 07/13/16 06:10 06:40 08:03 WBC RBC Hgb Hct MCH RDW Plt Count Lymph % (Auto) [place] % (Auto) Lymph # [place] # Seg Neutrophils % Seg Neuts % (Manual) Lymphocytes % (Manual) Seg Neutrophils # Seg Neutrophils # Man Lymphocytes # (Manual) D-Dimer POC ABG pH POC ABG pCO2 POC ABG pO2 Sodium Potassium Chloride Carbon Dioxide BUN Creatinine Glucose POC Glucose 68 L 176 H 141 H Calcium Phosphorus Albumin TSH Urine WBC (Auto) Urine Creatinine 07/13/16 07/13/16 07/13/16 09:17 12:30 14:15 WBC RBC Hgb Hct MCH RDW Plt Count Lymph % (Auto) [place] % (Auto) Lymph # [place] # Seg Neutrophils % Seg Neuts % (Manual) Lymphocytes % (Manual) Seg Neutrophils # Seg Neutrophils # Man Lymphocytes # (Manual) D-Dimer POC ABG pH 7.475 H 7.529 H POC ABG pCO2 33.4 L 26.8 L POC ABG pO2 110 H 70 L Sodium Potassium Chloride Carbon Dioxide BUN Creatinine Glucose POC Glucose 177 H Calcium Phosphorus Albumin TSH Urine WBC (Auto) Urine Creatinine 07/13/16 07/13/16 07/13/16 15:28 17:57 22:10 WBC RBC Hgb Hct MCH RDW Plt Count Lymph % (Auto) [place] % (Auto) Lymph # [place] # Seg Neutrophils % Seg Neuts % (Manual) Lymphocytes % (Manual) Seg Neutrophils # Seg Neutrophils # Man Lymphocytes # (Manual) D-Dimer POC ABG pH POC ABG pCO2 POC ABG pO2 Sodium Potassium Chloride Carbon Dioxide BUN Creatinine Glucose POC Glucose 122 H 166 H 197 H Calcium Phosphorus Albumin TSH Urine WBC (Auto) Urine Creatinine 07/14/16 07/14/16 07/14/16 02:00 04:21 04:21 WBC RBC 3.01 L Hgb 8.1 L Hct 25.3 L MCH 27 L RDW 17.9 H Plt Count Lymph % (Auto) 6.1 L [place] % (Auto) Lymph # 0.5 L [place] # Seg Neutrophils % 89.9 H Seg Neuts % (Manual) Lymphocytes % (Manual) Seg Neutrophils # Seg Neutrophils # Man Lymphocytes # (Manual) D-Dimer POC ABG pH POC ABG pCO2 POC ABG pO2 Sodium 150 H Potassium Chloride 107.3 H Carbon Dioxide 21 L BUN 82 H Creatinine 4.8 H Glucose 176 H POC Glucose 166 H Calcium 6.8 L Phosphorus Albumin TSH Urine WBC (Auto) Urine Creatinine 07/14/16 07/14/16 07/14/16 05:32 09:42 22:32 WBC RBC Hgb Hct MCH RDW Plt Count Lymph % (Auto) [place] % (Auto) Lymph # [place] # Seg Neutrophils % Seg Neuts % (Manual) Lymphocytes % (Manual) Seg Neutrophils # Seg Neutrophils # Man Lymphocytes # (Manual) D-Dimer POC ABG pH POC ABG pCO2 POC ABG pO2 Sodium Potassium Chloride Carbon Dioxide BUN Creatinine Glucose POC Glucose 202 H 216 H 191 H Calcium Phosphorus Albumin TSH Urine WBC (Auto) Urine Creatinine 07/15/16 07/15/16 07/15/16 04:46 04:56 04:56 WBC RBC 3.04 L Hgb 8.2 L Hct 25.8 L MCH 27 L RDW 17.3 H Plt Count Lymph % (Auto) 4.2 L [place] % (Auto) 11.8 H Lymph # 0.4 L [place] # 1.1 H Seg Neutrophils % 83.9 H Seg Neuts % (Manual) Lymphocytes % (Manual) Seg Neutrophils # Seg Neutrophils # Man Lymphocytes # (Manual) D-Dimer POC ABG pH POC ABG pCO2 POC ABG pO2 Sodium 147 H Potassium 3.4 L Chloride Carbon Dioxide 20 L BUN 109 H Creatinine 5.2 H Glucose 242 H POC Glucose 275 H Calcium 6.3 L Phosphorus Albumin TSH Urine WBC (Auto) Urine Creatinine 07/15/16 07/15/16 07/15/16 11:32 16:52 20:41 WBC RBC Hgb Hct MCH RDW Plt Count Lymph % (Auto) [place] % (Auto) Lymph # [place] # Seg Neutrophils % Seg Neuts % (Manual) Lymphocytes % (Manual) Seg Neutrophils # Seg Neutrophils # Man Lymphocytes # (Manual) D-Dimer POC ABG pH POC ABG pCO2 POC ABG pO2 Sodium Potassium Chloride Carbon Dioxide BUN Creatinine Glucose POC Glucose 250 H 195 H 219 H Calcium Phosphorus Albumin TSH Urine WBC (Auto) Urine Creatinine 07/16/16 07/16/16 07/16/16 00:37 05:47 09:54 WBC RBC 3.20 L Hgb 8.6 L Hct 27.3 L MCH 27 L RDW 17.1 H Plt Count Lymph % (Auto) 4.2 L [place] % (Auto) Lymph # 0.3 L [place] # Seg Neutrophils % 89.6 H Seg Neuts % (Manual) Lymphocytes % (Manual) Seg Neutrophils # Seg Neutrophils # Man Lymphocytes # (Manual) D-Dimer POC ABG pH POC ABG pCO2 POC ABG pO2 Sodium Potassium Chloride Carbon Dioxide BUN Creatinine Glucose POC Glucose 257 H 223 H Calcium Phosphorus Albumin TSH Urine WBC (Auto) Urine Creatinine 07/16/16 07/16/16 07/16/16 09:54 11:54 17:48 WBC RBC Hgb Hct MCH RDW Plt Count Lymph % (Auto) [place] % (Auto) Lymph # [place] # Seg Neutrophils % Seg Neuts % (Manual) Lymphocytes % (Manual) Seg Neutrophils # Seg Neutrophils # Man Lymphocytes # (Manual) D-Dimer POC ABG pH POC ABG pCO2 POC ABG pO2 Sodium 148 H Potassium Chloride Carbon Dioxide 21 L BUN 146 H Creatinine 6.0 H Glucose 249 H POC Glucose 294 H 195 H Calcium 6.4 L Phosphorus Albumin TSH Urine WBC (Auto) Urine Creatinine 07/16/16 07/16/16 07/17/16 21:54 23:53 05:53 WBC RBC Hgb Hct MCH RDW Plt Count Lymph % (Auto) [place] % (Auto) Lymph # [place] # Seg Neutrophils % Seg Neuts % (Manual) Lymphocytes % (Manual) Seg Neutrophils # Seg Neutrophils # Man Lymphocytes # (Manual) D-Dimer POC ABG pH POC ABG pCO2 POC ABG pO2 Sodium Potassium Chloride Carbon Dioxide BUN Creatinine Glucose POC Glucose 161 H 171 H 208 H Calcium Phosphorus Albumin TSH Urine WBC (Auto) Urine Creatinine 07/17/16 07/17/16 07/17/16 06:52 06:52 11:28 WBC RBC 3.17 L Hgb 8.6 L Hct 26.4 L MCH 27 L RDW 17.2 H Plt Count Lymph % (Auto) [place] % (Auto) Lymph # [place] # Seg Neutrophils % Seg Neuts % (Manual) 90.0 H Lymphocytes % (Manual) 8.0 L Seg Neutrophils # Seg Neutrophils # Man Lymphocytes # (Manual) 0.6 L D-Dimer POC ABG pH POC ABG pCO2 POC ABG pO2 Sodium Potassium Chloride Carbon Dioxide BUN 87 H Creatinine 4.2 H Glucose 231 H POC Glucose 255 H Calcium 6.2 L Phosphorus 5.2 H Albumin TSH Urine WBC (Auto) Urine Creatinine 07/17/16 16:22 WBC RBC Hgb Hct MCH RDW Plt Count Lymph % (Auto) [place] % (Auto) Lymph # [place] # Seg Neutrophils % Seg Neuts % (Manual) Lymphocytes % (Manual) Seg Neutrophils # Seg Neutrophils # Man Lymphocytes # (Manual) D-Dimer POC ABG pH POC ABG pCO2 POC ABG pO2 Sodium Potassium Chloride Carbon Dioxide BUN Creatinine Glucose POC Glucose 263 H Calcium Phosphorus Albumin TSH Urine WBC (Auto) Urine Creatinine Chest x-ray: report reviewed (Lungs clear.), image reviewed
[2016-07-17] MEDS ORDERED: XOPENEX IH PRN (22:55)
[2016-07-18] MEDS: NOVOLOG SUB-Q SCH ×4 (00:08→17:00)
[2016-07-18] MEDS: NEURONTIN PO SCH ×4 (00:19→22:15)
[2016-07-18 06:06] LABS: Hematocrit 27.2 % (30.3-42.9); Hemoglobin 8.8 gm/dl (10.1-14.3); Mean Corpuscular HGB Conc 33 % (30-34); Mean Corpuscular Hemoglobin 27 pg (28-32); Mean Corpuscular Volume 84 fl (79-97); Platelet Count 175 K/mm3 (140-440); Red Blood Count 3.25 M/mm3 (3.65-5.03); White Blood Count 8.6 K/mm3 (4.5-11.0)
[2016-07-18] MEDS: APRESOLINE FEEDTUBE SCH ×3 (06:07→22:07)
[2016-07-18] MEDS: SYNTHROID PO SCH (06:07)
[2016-07-18] MEDS: HEPARIN SUB-Q SCH ×3 (06:07→22:07)
[2016-07-18 06:25] LABS: BUN/Creatinine Ratio 18.21; Calcium 6.4 mg/dL (8.4-10.2); Chloride 97.7 mmol/L (98-107); Potassium 3.8 mmol/L (3.6-5.0)
[2016-07-18 06:26] LABS: INR 1.1 (0.87-1.13)
[2016-07-18 06:27] LABS: Partial Thromboplastin Time 34.8 Sec. (24.2-36.6)
[2016-07-18] MEDS: NORMODYNE PO SCH ×3 (07:58→22:05)
--- NOTE | 2016-07-18 08:40 | Consultation ---
REFERRING PHYSICIAN: Jeronimo Rodriguez M.D. INDICATION: 1. Weight loss. 2. Nutritional support. 3. Dysphagia. HISTORY OF PRESENT ILLNESS: The patient is a 70-year-old -[place] female with history of hypertension, bipolar disorder, dementia, and diabetes as well as chronic kidney disease. The patient presented with agitation and subsequently developed respiratory failure. The patient subsequently was intubated, she is now extubated. The patient has poor p.o. intake. GI is consulted to aid in management and for PEG tube placement. PAST MEDICAL HISTORY: 1. Diabetes. 2. Hypertension. 3. Respiratory failure. 4. Bipolar dementia. PAST SURGICAL HISTORY: Breast surgery. MEDICATIONS: See chart. ALLERGIES: No known drug allergies. SOCIAL HISTORY: Lives with family reportedly no etoh. FAMILY HISTORY: Negative for colon cancer. REVIEW OF SYSTEMS: The patient unable to give full review of systems at this time. PHYSICAL EXAMINATION: VITAL SIGNS: Temperature of 98.3, pulse 70, respiration 20, blood pressure 120/70____. GENERAL: Fairly thin, weak appearing female in no acute distress. HEENT: Pupils equal, round, reactive. PULMONARY: Rhonchi. CARDIOVASCULAR: Regular rate and rhythm. ABDOMEN: Soft. SKIN: No obvious rashes. LABORATORY DATA: Pertinent for white count of 7.6, hemoglobin and hematocrit of 8.6 and 24.4, platelet count of 180. Chem-7 within normal limits. ASSESSMENT: A 70-year-old female with multiple medical problems as noted above, admitted with respiratory failure, now with poor p.o. intake and for nutrition support for PEG tube. PLAN: 1. N.p.o. after midnight. 2. Coags in the morning. 3. We will discuss with family with plans for possible PEG tube placement in a.m. JOB# [id number] [facility]
[2016-07-18] MEDS ORDERED: NEURONTIN PO SCH (10:00)
[2016-07-18 10:06] LABS: Anisocytosis 1+; Blastocytes % (Manual) 0 %; Elliptocytes Few
[2016-07-18 10:07] LABS: Diff Status Complete
[2016-07-18] MEDS: PEPCID PO SCH (10:25)
[2016-07-18] MEDS ORDERED: NACL 0.9% 1000 ML 1,000 ML IV SCH (13:00)
[2016-07-18] MEDS ORDERED: ANCEF/STERILE WATER 2 GM/20 ML 20 ML IV NR (13:00)
--- NOTE | 2016-07-18 13:13 | Progress Note ---
Assessment and Plan - Patient Problems (1) GABRIELA (acute kidney injury) Current Visit: Yes Status: Acute Plan to address problem: GABRIELA Most likely multifactorial AIN/AT? Volume contraction Will start gentle hydration Avoid Nephrotoxic agents Monitor renal function Re Evaluate in am for dialysis (2) Chronic renal insufficiency Current Visit: Yes Status: Acute Subjective Date of service: 07/18/16 Principal diagnosis: Acute Respiratory Failure; Angioedema Interval history: More awake and alert, no complaints Objective - Exam Narrative Exam: Middle-aged female in NAD HEENT normocephalic/atraumatic pink conjunctiva anicteric sclera, Neck is supple no JVD trachea central, Chest is bilateral coarse breath sound equal chest expansion, Heart S1-S2 regular rate and rhythm, Abdomen is soft nontender no organomegaly, Extremities no edema cyanosis or clubbing, Neuro Alert, awake and follows commands - Vital Signs Vital signs: Vital Signs - 12hr 07/18/16 07/18/16 07/18/16 03:00 04:00 07:45 Temperature 99.0 F 98.3 F Pulse Rate [ 85 83 74 Right Radial] Respiratory 20 20 12 Rate Blood Pressure 108/56 116/63 [Right Arm] O2 Sat by Pulse 99 100 Oximetry 07/18/16 07/18/16 09:59 12:20 Temperature 99.2 F Pulse Rate [ 81 Right Radial] Respiratory 12 Rate Blood Pressure 126/58 [Right Arm] O2 Sat by Pulse 100 100 Oximetry - Lab 07/18/16 05:06 07/18/16 05:06 Most recent lab results Calcium 6.4 mg/dL (8.4-10.2) L 07/18/16 05:06 Phosphorus 5.2 mg/dL (2.5-4.5) H 07/17/16 06:52 Magnesium 1.9 mg/dL (1.7-2.3) 07/17/16 06:52 Urine Creatinine 36.6 mg/dL (0.1-20.0) H 07/06/16 01:18 Urine Sodium 28 mEq/L 07/06/16 01:18
--- NOTE | 2016-07-18 17:07 | Event Note ---
Date: 07/18/16 - attempted to call family to discuss possible peg but unable to contact - procedure held until discussed w/ family\ - will follow
--- NOTE | 2016-07-18 20:48 | Progress Note ---
Assessment and Plan Patient sleeping at this time., Sleeping on 2 litres O2. O2 satuaration 100% on 2 litres O2.No acute respiratory distress. - Patient Problems (1) Angioedema Current Visit: Yes Status: Acute Plan to address problem: Improved. (2) Acute respiratory failure Current Visit: Yes Status: Acute Plan to address problem: Improved. O2 satuaration 100% on 2 litres O2. Patient is on I/V solumedral. Xopenex inhalor HFA 2 puffs po q 8 hours prn for shortness of breath. (3) GABRIELA (acute kidney injury) Current Visit: Yes Status: Acute Plan to address problem: Patient is on dialysis. Mangement as per nephrology. (4) Encephalopathy acute Current Visit: Yes Status: Acute Plan to address problem: Management as per primary care. (5) Hypertension Current Visit: Yes Status: Acute Plan to address problem: Management as per primary care. (6) Diabetes Current Visit: No Status: Acute Qualifiers: Diabetes mellitus type: type 2 Diabetes mellitus complication status: with kidney complications Diabetes mellitus complication detail: with chronic kidney disease Plan to address problem: Management as per primary care. (7) Bipolar disorder Current Visit: No Status: Acute Qualifiers: Active/Remission status: remission status unspecified Most recent bipolar episode type: most recent episode unspecified type Plan to address problem: Management as per primary care and psychiatry. Subjective Date of service: 07/18/16 Principal diagnosis: Acute Respiratory Failure; Angioedema Interval history: . Patient sleeping at this time., Patient sleeping on 2 litres O2. O2 satuaration 100% on 2 litres O2.No acute respiratory distress. Objective Vital Signs - 12hr 07/18/16 07/18/16 07/18/16 09:59 12:20 15:00 Temperature 99.2 F Pulse Rate [ Left Radial] Pulse Rate [ 81 Right Radial] Respiratory 12 22 Rate Blood Pressure [Left Arm] Blood Pressure 126/58 [Right Arm] O2 Sat by Pulse 100 100 Oximetry 07/18/16 07/18/16 07/18/16 15:20 20:12 20:35 Temperature 100.1 F H 100.4 F H Pulse Rate [ 86 Left Radial] Pulse Rate [ 79 Right Radial] Respiratory 14 18 Rate Blood Pressure 126/57 [Left Arm] Blood Pressure 128/64 [Right Arm] O2 Sat by Pulse 100 100 Oximetry Constitutional: no acute distress, lethargic Eyes: non-icteric ENT: oropharynx moist Neck: supple, no lymphadenopathy Effort: normal Ascultation: Bilateral: diminished breath sounds Cardiovascular: regular rate and rhythm Gastrointestinal: normoactive bowel sounds, soft, non-tender, non-distended Integumentary: normal Extremities: no cyanosis, no edema, pulses normal, no ischemia or petechiae Neurologic: non-focal exam (grossly), pupils equal and round, CN II-XII normal Psychiatric: anxious CBC and BMP: 07/18/16 05:06 07/18/16 05:06 ABG, PT/INR, D-dimer: ABG POC ABG pH 7.529 (7.35-7.45) H 07/13/16 14:15 POC ABG pCO2 26.8 (35-45) L 07/13/16 14:15 POC ABG pO2 70 (80-105) L 07/13/16 14:15 POC ABG HCO3 22.3 07/13/16 14:15 POC ABG Total CO2 23 07/13/16 14:15 POC ABG O2 Sat 96 07/13/16 14:15 PT/INR, D-dimer PT 14.1 Sec. (12.2-14.9) 07/18/16 05:06 INR 1.10 (0.87-1.13) 07/18/16 05:06 D-Dimer 751.80 ng/mlDDU (0-234) H 07/11/16 12:22 Abnormal lab findings: Abnormal Labs 07/03/16 07/03/16 07/04/16 14:34 14:34 06:21 WBC 3.9 L RBC 3.16 L 3.04 L Hgb 8.5 L 8.0 L Hct 26.8 L 25.6 L MCH 27 L 26 L RDW 16.5 H 16.2 H Plt Count Lymph % (Auto) [place] % (Auto) 10.7 H 10.7 H Lymph # 1.0 L [place] # Seg Neutrophils % Seg Neuts % (Manual) Lymphocytes % (Manual) Seg Neutrophils # Seg Neutrophils # Man Lymphocytes # (Manual) D-Dimer POC ABG pH POC ABG pCO2 POC ABG pO2 Sodium Potassium Chloride 107.6 H Carbon Dioxide BUN 27 H Creatinine 2.6 H Glucose POC Glucose Calcium 8.0 L Phosphorus Albumin TSH Urine WBC (Auto) Urine Creatinine 07/04/16 07/04/16 07/04/16 06:21 11:30 16:33 WBC RBC Hgb Hct MCH RDW Plt Count Lymph % (Auto) [place] % (Auto) Lymph # [place] # Seg Neutrophils % Seg Neuts % (Manual) Lymphocytes % (Manual) Seg Neutrophils # Seg Neutrophils # Man Lymphocytes # (Manual) D-Dimer POC ABG pH POC ABG pCO2 POC ABG pO2 Sodium Potassium Chloride 107.4 H Carbon Dioxide 21 L BUN 27 H Creatinine 2.7 H Glucose POC Glucose 110 H 106 H Calcium 7.8 L Phosphorus Albumin TSH Urine WBC (Auto) Urine Creatinine 07/05/16 07/05/16 07/05/16 05:08 05:08 05:08 WBC 4.0 L RBC 2.87 L Hgb 7.7 L Hct 24.2 L MCH 27 L RDW 16.0 H Plt Count Lymph % (Auto) [place] % (Auto) Lymph # [place] # Seg Neutrophils % Seg Neuts % (Manual) Lymphocytes % (Manual) Seg Neutrophils # Seg Neutrophils # Man Lymphocytes # (Manual) D-Dimer POC ABG pH POC ABG pCO2 POC ABG pO2 Sodium Potassium Chloride Carbon Dioxide 21 L BUN 32 H Creatinine 3.7 H Glucose POC Glucose Calcium 7.8 L Phosphorus Albumin TSH 8.090 H Urine WBC (Auto) Urine Creatinine 07/05/16 07/06/16 07/06/16 11:45 01:18 01:18 WBC RBC Hgb 8.3 L Hct 25.9 L MCH RDW Plt Count Lymph % (Auto) [place] % (Auto) Lymph # [place] # Seg Neutrophils % Seg Neuts % (Manual) Lymphocytes % (Manual) Seg Neutrophils # Seg Neutrophils # Man Lymphocytes # (Manual) D-Dimer POC ABG pH POC ABG pCO2 POC ABG pO2 Sodium Potassium Chloride Carbon Dioxide BUN Creatinine Glucose POC Glucose Calcium Phosphorus Albumin TSH Urine WBC (Auto) 7.0 H Urine Creatinine 36.6 H 07/06/16 07/06/16 07/06/16 05:55 05:55 16:07 WBC 3.0 L RBC 2.79 L Hgb 7.5 L Hct 23.5 L MCH 27 L RDW 16.5 H Plt Count Lymph % (Auto) [place] % (Auto) Lymph # [place] # Seg Neutrophils % Seg Neuts % (Manual) Lymphocytes % (Manual) Seg Neutrophils # Seg Neutrophils # Man Lymphocytes # (Manual) D-Dimer POC ABG pH POC ABG pCO2 POC ABG pO2 Sodium Potassium Chloride 109.3 H Carbon Dioxide 20 L BUN 32 H Creatinine 3.4 H Glucose POC Glucose 117 H Calcium 7.5 L Phosphorus Albumin TSH Urine WBC (Auto) Urine Creatinine 07/07/16 07/07/16 07/08/16 06:19 16:13 00:09 WBC RBC Hgb Hct MCH RDW Plt Count Lymph % (Auto) [place] % (Auto) Lymph # [place] # Seg Neutrophils % Seg Neuts % (Manual) Lymphocytes % (Manual) Seg Neutrophils # Seg Neutrophils # Man Lymphocytes # (Manual) D-Dimer POC ABG pH POC ABG pCO2 POC ABG pO2 Sodium Potassium Chloride 111.1 H Carbon Dioxide 20 L BUN 31 H Creatinine 3.1 H Glucose POC Glucose 108 H 134 H Calcium 8.0 L Phosphorus Albumin TSH Urine WBC (Auto) Urine Creatinine 07/08/16 07/08/16 07/08/16 11:39 16:31 21:22 WBC RBC Hgb Hct MCH RDW Plt Count Lymph % (Auto) [place] % (Auto) Lymph # [place] # Seg Neutrophils % Seg Neuts % (Manual) Lymphocytes % (Manual) Seg Neutrophils # Seg Neutrophils # Man Lymphocytes # (Manual) D-Dimer POC ABG pH POC ABG pCO2 POC ABG pO2 Sodium Potassium Chloride Carbon Dioxide BUN Creatinine Glucose POC Glucose 119 H 130 H 152 H Calcium Phosphorus Albumin TSH Urine WBC (Auto) Urine Creatinine 07/09/16 07/09/16 07/09/16 05:52 05:52 06:02 WBC RBC 3.55 L Hgb 9.4 L Hct MCH 27 L RDW 17.1 H Plt Count Lymph % (Auto) [place] % (Auto) Lymph # [place] # Seg Neutrophils % Seg Neuts % (Manual) Lymphocytes % (Manual) Seg Neutrophils # Seg Neutrophils # Man Lymphocytes # (Manual) D-Dimer POC ABG pH POC ABG pCO2 POC ABG pO2 Sodium 147 H Potassium 5.4 H Chloride 112.8 H Carbon Dioxide 21 L BUN 30 H Creatinine 2.5 H Glucose 21 L* POC Glucose < 40 L Calcium Phosphorus Albumin TSH Urine WBC (Auto) Urine Creatinine 07/09/16 07/09/16 07/10/16 11:31 16:50 05:23 WBC RBC Hgb Hct MCH RDW Plt Count Lymph % (Auto) [place] % (Auto) Lymph # [place] # Seg Neutrophils % Seg Neuts % (Manual) Lymphocytes % (Manual) Seg Neutrophils # Seg Neutrophils # Man Lymphocytes # (Manual) D-Dimer POC ABG pH POC ABG pCO2 POC ABG pO2 Sodium Potassium Chloride Carbon Dioxide BUN Creatinine Glucose POC Glucose 114 H 149 H < 40 L Calcium Phosphorus Albumin TSH Urine WBC (Auto) Urine Creatinine 07/10/16 07/10/16 07/10/16 06:03 06:43 06:43 WBC RBC 2.90 L Hgb 7.7 L Hct 25.0 L MCH 27 L RDW 17.0 H Plt Count Lymph % (Auto) [place] % (Auto) 10.4 H Lymph # 1.1 L [place] # Seg Neutrophils % Seg Neuts % (Manual) Lymphocytes % (Manual) Seg Neutrophils # Seg Neutrophils # Man Lymphocytes # (Manual) D-Dimer POC ABG pH POC ABG pCO2 POC ABG pO2 Sodium 148 H Potassium 5.1 H Chloride 111.7 H Carbon Dioxide 20 L BUN 31 H Creatinine 2.4 H Glucose POC Glucose 211 H Calcium 8.0 L Phosphorus Albumin 3.5 L TSH Urine WBC (Auto) Urine Creatinine 07/10/16 07/11/16 07/11/16 14:55 05:37 05:47 WBC RBC Hgb 7.9 L Hct 25.5 L MCH RDW Plt Count Lymph % (Auto) [place] % (Auto) Lymph # [place] # Seg Neutrophils % Seg Neuts % (Manual) Lymphocytes % (Manual) Seg Neutrophils # Seg Neutrophils # Man Lymphocytes # (Manual) D-Dimer POC ABG pH POC ABG pCO2 POC ABG pO2 Sodium Potassium Chloride Carbon Dioxide BUN Creatinine Glucose POC Glucose < 40 L > 500 H Calcium Phosphorus Albumin TSH Urine WBC (Auto) Urine Creatinine 07/11/16 07/11/16 07/11/16 05:56 07:42 07:48 WBC RBC Hgb Hct MCH RDW Plt Count Lymph % (Auto) [place] % (Auto) Lymph # [place] # Seg Neutrophils % Seg Neuts % (Manual) Lymphocytes % (Manual) Seg Neutrophils # Seg Neutrophils # Man Lymphocytes # (Manual) D-Dimer POC ABG pH POC ABG pCO2 POC ABG pO2 Sodium Potassium Chloride Carbon Dioxide BUN Creatinine Glucose POC Glucose 262 H 56 L 54 L Calcium Phosphorus Albumin TSH Urine WBC (Auto) Urine Creatinine 07/11/16 07/11/16 07/11/16 08:34 08:50 09:53 WBC RBC Hgb Hct MCH RDW Plt Count Lymph % (Auto) [place] % (Auto) Lymph # [place] # Seg Neutrophils % Seg Neuts % (Manual) Lymphocytes % (Manual) Seg Neutrophils # Seg Neutrophils # Man Lymphocytes # (Manual) D-Dimer POC ABG pH POC ABG pCO2 31.1 L POC ABG pO2 108 H Sodium Potassium Chloride Carbon Dioxide BUN Creatinine Glucose POC Glucose 110 H 68 L Calcium Phosphorus Albumin TSH Urine WBC (Auto) Urine Creatinine 07/11/16 07/11/16 07/11/16 11:48 12:22 12:22 WBC 11.6 H RBC Hgb Hct MCH 27 L RDW 17.2 H Plt Count Lymph % (Auto) [place] % (Auto) Lymph # [place] # Seg Neutrophils % Seg Neuts % (Manual) 91.0 H Lymphocytes % (Manual) 5.0 L Seg Neutrophils # 10.8 H Seg Neutrophils # Man 10.6 H Lymphocytes # (Manual) 0.6 L D-Dimer 751.80 H POC ABG pH POC ABG pCO2 POC ABG pO2 Sodium Potassium Chloride Carbon Dioxide BUN Creatinine Glucose POC Glucose 118 H Calcium Phosphorus Albumin TSH Urine WBC (Auto) Urine Creatinine 07/11/16 07/11/16 07/11/16 12:22 12:29 15:23 WBC RBC Hgb Hct MCH RDW Plt Count Lymph % (Auto) [place] % (Auto) Lymph # [place] # Seg Neutrophils % Seg Neuts % (Manual) Lymphocytes % (Manual) Seg Neutrophils # Seg Neutrophils # Man Lymphocytes # (Manual) D-Dimer POC ABG pH POC ABG pCO2 28.4 L POC ABG pO2 Sodium Potassium 6.1 H* Chloride 109.4 H Carbon Dioxide 18 L BUN 30 H Creatinine 2.1 H Glucose 126 H POC Glucose 204 H Calcium Phosphorus Albumin TSH Urine WBC (Auto) Urine Creatinine 07/11/16 07/11/16 07/11/16 17:27 17:55 21:42 WBC RBC Hgb Hct MCH RDW Plt Count Lymph % (Auto) [place] % (Auto) Lymph # [place] # Seg Neutrophils % Seg Neuts % (Manual) Lymphocytes % (Manual) Seg Neutrophils # Seg Neutrophils # Man Lymphocytes # (Manual) D-Dimer POC ABG pH POC ABG pCO2 POC ABG pO2 Sodium 146 H Potassium 6.5 H* Chloride 109.7 H Carbon Dioxide 20 L BUN 32 H Creatinine 2.4 H Glucose 167 H POC Glucose 433 H 142 H Calcium Phosphorus Albumin TSH Urine WBC (Auto) Urine Creatinine 07/12/16 07/12/16 07/12/16 04:34 04:34 05:22 WBC 14.0 H RBC Hgb Hct MCH 27 L RDW 17.6 H Plt Count 113 L Lymph % (Auto) [place] % (Auto) Lymph # [place] # Seg Neutrophils % Seg Neuts % (Manual) 87.0 H Lymphocytes % (Manual) 11.0 L Seg Neutrophils # Seg Neutrophils # Man 12.2 H Lymphocytes # (Manual) D-Dimer POC ABG pH 7.452 H POC ABG pCO2 29.6 L POC ABG pO2 Sodium Potassium 6.8 H* Chloride 110.2 H Carbon Dioxide 16 L BUN 43 H Creatinine 2.9 H Glucose 113 H POC Glucose Calcium Phosphorus Albumin TSH Urine WBC (Auto) Urine Creatinine 07/12/16 07/12/16 07/12/16 13:24 17:28 21:11 WBC RBC Hgb Hct MCH RDW Plt Count Lymph % (Auto) [place] % (Auto) Lymph # [place] # Seg Neutrophils % Seg Neuts % (Manual) Lymphocytes % (Manual) Seg Neutrophils # Seg Neutrophils # Man Lymphocytes # (Manual) D-Dimer POC ABG pH POC ABG pCO2 POC ABG pO2 Sodium 150 H Potassium Chloride 108.9 H Carbon Dioxide 21 L BUN 52 H Creatinine 3.7 H Glucose 143 H POC Glucose 148 H 134 H Calcium 8.0 L Phosphorus Albumin TSH Urine WBC (Auto) Urine Creatinine 07/12/16 07/13/16 07/13/16 21:50 04:40 04:40 WBC 14.0 H RBC 3.50 L Hgb 9.3 L Hct 29.3 L MCH 27 L RDW 17.3 H Plt Count Lymph % (Auto) 4.9 L [place] % (Auto) Lymph # 0.7 L [place] # Seg Neutrophils % 90.0 H Seg Neuts % (Manual) 93.0 H Lymphocytes % (Manual) 5.0 L Seg Neutrophils # 12.6 H Seg Neutrophils # Man 13.0 H Lymphocytes # (Manual) 0.7 L D-Dimer POC ABG pH POC ABG pCO2 POC ABG pO2 Sodium 151 H Potassium Chloride 109.3 H Carbon Dioxide BUN 59 H Creatinine 4.0 H Glucose 63 L POC Glucose 156 H Calcium 7.7 L Phosphorus Albumin TSH Urine WBC (Auto) Urine Creatinine 07/13/16 07/13/16 07/13/16 06:10 06:40 08:03 WBC RBC Hgb Hct MCH RDW Plt Count Lymph % (Auto) [place] % (Auto) Lymph # [place] # Seg Neutrophils % Seg Neuts % (Manual) Lymphocytes % (Manual) Seg Neutrophils # Seg Neutrophils # Man Lymphocytes # (Manual) D-Dimer POC ABG pH POC ABG pCO2 POC ABG pO2 Sodium Potassium Chloride Carbon Dioxide BUN Creatinine Glucose POC Glucose 68 L 176 H 141 H Calcium Phosphorus Albumin TSH Urine WBC (Auto) Urine Creatinine 07/13/16 07/13/16 07/13/16 09:17 12:30 14:15 WBC RBC Hgb Hct MCH RDW Plt Count Lymph % (Auto) [place] % (Auto) Lymph # [place] # Seg Neutrophils % Seg Neuts % (Manual) Lymphocytes % (Manual) Seg Neutrophils # Seg Neutrophils # Man Lymphocytes # (Manual) D-Dimer POC ABG pH 7.475 H 7.529 H POC ABG pCO2 33.4 L 26.8 L POC ABG pO2 110 H 70 L Sodium Potassium Chloride Carbon Dioxide BUN Creatinine Glucose POC Glucose 177 H Calcium Phosphorus Albumin TSH Urine WBC (Auto) Urine Creatinine 07/13/16 07/13/16 07/13/16 15:28 17:57 22:10 WBC RBC Hgb Hct MCH RDW Plt Count Lymph % (Auto) [place] % (Auto) Lymph # [place] # Seg Neutrophils % Seg Neuts % (Manual) Lymphocytes % (Manual) Seg Neutrophils # Seg Neutrophils # Man Lymphocytes # (Manual) D-Dimer POC ABG pH POC ABG pCO2 POC ABG pO2 Sodium Potassium Chloride Carbon Dioxide BUN Creatinine Glucose POC Glucose 122 H 166 H 197 H Calcium Phosphorus Albumin TSH Urine WBC (Auto) Urine Creatinine 07/14/16 07/14/16 07/14/16 02:00 04:21 04:21 WBC RBC 3.01 L Hgb 8.1 L Hct 25.3 L MCH 27 L RDW 17.9 H Plt Count Lymph % (Auto) 6.1 L [place] % (Auto) Lymph # 0.5 L [place] # Seg Neutrophils % 89.9 H Seg Neuts % (Manual) Lymphocytes % (Manual) Seg Neutrophils # Seg Neutrophils # Man Lymphocytes # (Manual) D-Dimer POC ABG pH POC ABG pCO2 POC ABG pO2 Sodium 150 H Potassium Chloride 107.3 H Carbon Dioxide 21 L BUN 82 H Creatinine 4.8 H Glucose 176 H POC Glucose 166 H Calcium 6.8 L Phosphorus Albumin TSH Urine WBC (Auto) Urine Creatinine 07/14/16 07/14/16 07/14/16 05:32 09:42 22:32 WBC RBC Hgb Hct MCH RDW Plt Count Lymph % (Auto) [place] % (Auto) Lymph # [place] # Seg Neutrophils % Seg Neuts % (Manual) Lymphocytes % (Manual) Seg Neutrophils # Seg Neutrophils # Man Lymphocytes # (Manual) D-Dimer POC ABG pH POC ABG pCO2 POC ABG pO2 Sodium Potassium Chloride Carbon Dioxide BUN Creatinine Glucose POC Glucose 202 H 216 H 191 H Calcium Phosphorus Albumin TSH Urine WBC (Auto) Urine Creatinine 07/15/16 07/15/16 07/15/16 04:46 04:56 04:56 WBC RBC 3.04 L Hgb 8.2 L Hct 25.8 L MCH 27 L RDW 17.3 H Plt Count Lymph % (Auto) 4.2 L [place] % (Auto) 11.8 H Lymph # 0.4 L [place] # 1.1 H Seg Neutrophils % 83.9 H Seg Neuts % (Manual) Lymphocytes % (Manual) Seg Neutrophils # Seg Neutrophils # Man Lymphocytes # (Manual) D-Dimer POC ABG pH POC ABG pCO2 POC ABG pO2 Sodium 147 H Potassium 3.4 L Chloride Carbon Dioxide 20 L BUN 109 H Creatinine 5.2 H Glucose 242 H POC Glucose 275 H Calcium 6.3 L Phosphorus Albumin TSH Urine WBC (Auto) Urine Creatinine 07/15/16 07/15/16 07/15/16 11:32 16:52 20:41 WBC RBC Hgb Hct MCH RDW Plt Count Lymph % (Auto) [place] % (Auto) Lymph # [place] # Seg Neutrophils % Seg Neuts % (Manual) Lymphocytes % (Manual) Seg Neutrophils # Seg Neutrophils # Man Lymphocytes # (Manual) D-Dimer POC ABG pH POC ABG pCO2 POC ABG pO2 Sodium Potassium Chloride Carbon Dioxide BUN Creatinine Glucose POC Glucose 250 H 195 H 219 H Calcium Phosphorus Albumin TSH Urine WBC (Auto) Urine Creatinine 07/16/16 07/16/16 07/16/16 00:37 05:47 09:54 WBC RBC 3.20 L Hgb 8.6 L Hct 27.3 L MCH 27 L RDW 17.1 H Plt Count Lymph % (Auto) 4.2 L [place] % (Auto) Lymph # 0.3 L [place] # Seg Neutrophils % 89.6 H Seg Neuts % (Manual) Lymphocytes % (Manual) Seg Neutrophils # Seg Neutrophils # Man Lymphocytes # (Manual) D-Dimer POC ABG pH POC ABG pCO2 POC ABG pO2 Sodium Potassium Chloride Carbon Dioxide BUN Creatinine Glucose POC Glucose 257 H 223 H Calcium Phosphorus Albumin TSH Urine WBC (Auto) Urine Creatinine 07/16/16 07/16/16 07/16/16 09:54 11:54 17:48 WBC RBC Hgb Hct MCH RDW Plt Count Lymph % (Auto) [place] % (Auto) Lymph # [place] # Seg Neutrophils % Seg Neuts % (Manual) Lymphocytes % (Manual) Seg Neutrophils # Seg Neutrophils # Man Lymphocytes # (Manual) D-Dimer POC ABG pH POC ABG pCO2 POC ABG pO2 Sodium 148 H Potassium Chloride Carbon Dioxide 21 L BUN 146 H Creatinine 6.0 H Glucose 249 H POC Glucose 294 H 195 H Calcium 6.4 L Phosphorus Albumin TSH Urine WBC (Auto) Urine Creatinine 07/16/16 07/16/16 07/17/16 21:54 23:53 05:53 WBC RBC Hgb Hct MCH RDW Plt Count Lymph % (Auto) [place] % (Auto) Lymph # [place] # Seg Neutrophils % Seg Neuts % (Manual) Lymphocytes % (Manual) Seg Neutrophils # Seg Neutrophils # Man Lymphocytes # (Manual) D-Dimer POC ABG pH POC ABG pCO2 POC ABG pO2 Sodium Potassium Chloride Carbon Dioxide BUN Creatinine Glucose POC Glucose 161 H 171 H 208 H Calcium Phosphorus Albumin TSH Urine WBC (Auto) Urine Creatinine 07/17/16 07/17/16 07/17/16 06:52 06:52 11:28 WBC RBC 3.17 L Hgb 8.6 L Hct 26.4 L MCH 27 L RDW 17.2 H Plt Count Lymph % (Auto) [place] % (Auto) Lymph # [place] # Seg Neutrophils % Seg Neuts % (Manual) 90.0 H Lymphocytes % (Manual) 8.0 L Seg Neutrophils # Seg Neutrophils # Man Lymphocytes # (Manual) 0.6 L D-Dimer POC ABG pH POC ABG pCO2 POC ABG pO2 Sodium Potassium Chloride Carbon Dioxide BUN 87 H Creatinine 4.2 H Glucose 231 H POC Glucose 255 H Calcium 6.2 L Phosphorus 5.2 H Albumin TSH Urine WBC (Auto) Urine Creatinine 07/17/16 07/17/16 07/18/16 16:22 23:41 05:06 WBC RBC 3.25 L Hgb 8.8 L Hct 27.2 L MCH 27 L RDW 17.0 H Plt Count Lymph % (Auto) [place] % (Auto) Lymph # [place] # Seg Neutrophils % Seg Neuts % (Manual) 80.0 H Lymphocytes % (Manual) 10.0 L Seg Neutrophils # Seg Neutrophils # Man Lymphocytes # (Manual) 0.9 L D-Dimer POC ABG pH POC ABG pCO2 POC ABG pO2 Sodium Potassium Chloride Carbon Dioxide BUN Creatinine Glucose POC Glucose 263 H 195 H Calcium Phosphorus Albumin TSH Urine WBC (Auto) Urine Creatinine 07/18/16 07/18/16 07/18/16 05:06 06:52 11:52 WBC RBC Hgb Hct MCH RDW Plt Count Lymph % (Auto) [place] % (Auto) Lymph # [place] # Seg Neutrophils % Seg Neuts % (Manual) Lymphocytes % (Manual) Seg Neutrophils # Seg Neutrophils # Man Lymphocytes # (Manual) D-Dimer POC ABG pH POC ABG pCO2 POC ABG pO2 Sodium Potassium Chloride 97.7 L Carbon Dioxide BUN 51 H Creatinine 2.8 H Glucose 252 H POC Glucose 289 H 242 H Calcium 6.4 L Phosphorus Albumin TSH Urine WBC (Auto) Urine Creatinine 07/18/16 16:36 WBC RBC Hgb Hct MCH RDW Plt Count Lymph % (Auto) [place] % (Auto) Lymph # [place] # Seg Neutrophils % Seg Neuts % (Manual) Lymphocytes % (Manual) Seg Neutrophils # Seg Neutrophils # Man Lymphocytes # (Manual) D-Dimer POC ABG pH POC ABG pCO2 POC ABG pO2 Sodium Potassium Chloride Carbon Dioxide BUN Creatinine Glucose POC Glucose 221 H Calcium Phosphorus Albumin TSH Urine WBC (Auto) Urine Creatinine
--- NOTE | 2016-07-18 21:14 | Event Note ---
Date: 07/18/16 Notified by nursing of temperature of 100.4 F. Remainder of current vital signs within normal limits. Temperature appears to be trending higher over past several readings. Patient with indwelling Rivera catheter and receiving tube feeds. Tylenol ordered for fever. Blood cultures and lactate levels ordered. Withholding antibiotics at this time.
[2016-07-18] MEDS: TYLENOL FEEDTUBE PRN (22:06)
[2016-07-19] MEDS: NOVOLOG SUB-Q SCH ×4 (00:10→17:30)
--- NOTE | 2016-07-19 01:57 | Progress Note ---
Assessment and Plan - Patient Problems (1) Acute respiratory failure Current Visit: Yes Status: Resolved Plan to address problem: supportive care, supplemental oxygen, nebs, aspiration precautions. (2) Dysphagia Current Visit: Yes Status: Acute Plan to address problem: GI consulted, Pending PEG placement (3) Encephalopathy acute Current Visit: Yes Status: Chronic Plan to address problem: Metabolic: continue supportive care. (4) Acute UTI Current Visit: No Status: Acute Plan to address problem: Iv abx, supportive care (5) Bipolar disorder Current Visit: No Status: Acute Qualifiers: Active/Remission status: remission status unspecified Most recent bipolar episode type: most recent episode unspecified type Plan to address problem: psych consulted, (6) DVT prophylaxis Current Visit: No Status: Acute History Interval history: Pt lying in bed, nonverbal, no reported nursing events. Case management consulted, D/C planning s/p peg placement. Hospitalist Physical - Constitutional Vitals: Temp Pulse Resp BP Pulse Ox 100.4 F H 86 18 126/57 100 07/18/16 20:35 07/18/16 20:35 07/18/16 20:35 07/18/16 20:35 07/18/16 20:35 General appearance: Present: no acute distress, obese - EENT Eyes: Present: PERRL ENT: hearing intact - Neck Neck: Present: supple - Respiratory Respiratory: bilateral: diminished - Cardiovascular Rhythm: regular Heart Sounds: Present: S1 & S2 - Extremities Extremities: no ischemia Peripheral Pulses: within normal limits - Abdominal General gastrointestinal: soft, non-tender, non-distended, normal bowel sounds, no hepatomegaly, no splenomegaly - Integumentary Integumentary: Present: clear, dry - Psychiatric Psychiatric: no intact judgment & insight, no memory intact - Neurologic Neurologic: no gait normal Results - Labs CBC & Chem 7: 07/18/16 05:06 07/18/16 05:06 Labs: Laboratory Last Values WBC 8.6 K/mm3 (4.5-11.0) 07/18/16 05:06 RBC 3.25 M/mm3 (3.65-5.03) L 07/18/16 05:06 Hgb 8.8 gm/dl (10.1-14.3) L 07/18/16 05:06 Hct 27.2 % (30.3-42.9) L 07/18/16 05:06 MCV 84 fl (79-97) 07/18/16 05:06 MCH 27 pg (28-32) L 07/18/16 05:06 MCHC 33 % (30-34) 07/18/16 05:06 RDW 17.0 % (13.2-15.2) H 07/18/16 05:06 Plt Count 175 K/mm3 (140-440) 07/18/16 05:06 Lymph % (Auto) 4.2 % (13.4-35.0) L 07/16/16 09:54 Foster % (Auto) 6.1 % (0.0-7.3) 07/16/16 09:54 Eos % (Auto) 0.0 % (0.0-4.3) 07/16/16 09:54 Baso % (Auto) 0.1 % (0.0-1.8) 07/16/16 09:54 Lymph # 0.3 K/mm3 (1.2-5.4) L 07/16/16 09:54 Foster # 0.5 K/mm3 (0.0-0.8) 07/16/16 09:54 Eos # 0.0 K/mm3 (0.0-0.4) 07/16/16 09:54 Baso # 0.0 K/mm3 (0.0-0.1) 07/16/16 09:54 Add Manual Diff Complete 07/18/16 05:06 Total Counted 100 07/18/16 05:06 Seg Neutrophils % License Distributor 07/18/16 05:06 Seg Neuts % (Manual) 80.0 % (40.0-70.0) H 07/18/16 05:06 Band Neutrophils % 4.0 % 07/18/16 05:06 Lymphocytes % (Manual) 10.0 % (13.4-35.0) L 07/18/16 05:06 Reactive Lymphs % (Man) 0 % 07/18/16 05:06 Monocytes % (Manual) 6.0 % (0.0-7.3) 07/18/16 05:06 Eosinophils % (Manual) 0 % (0.0-4.3) 07/17/16 06:52 Basophils % (Manual) 0 % (0.0-1.8) 07/17/16 06:52 Metamyelocytes % 0 % 07/18/16 05:06 Myelocytes % 0 % 07/18/16 05:06 Promyelocytes % 0 % 07/18/16 05:06 Blast Cells % 0 % 07/18/16 05:06 Nucleated RBC % Not Reportable 07/18/16 05:06 Seg Neutrophils # 7.5 K/mm3 (1.8-7.7) 07/16/16 09:54 Seg Neutrophils # Man 6.9 K/mm3 (1.8-7.7) 07/18/16 05:06 Band Neutrophils # 0.3 K/mm3 07/18/16 05:06 Lymphocytes # (Manual) 0.9 K/mm3 (1.2-5.4) L 07/18/16 05:06 Abs React Lymphs (Man) 0.0 K/mm3 07/18/16 05:06 Monocytes # (Manual) 0.5 K/mm3 (0.0-0.8) 07/18/16 05:06 Eosinophils # (Manual) 0.0 K/mm3 (0.0-0.4) 07/18/16 05:06 Basophils # (Manual) 0.0 K/mm3 (0.0-0.1) 07/18/16 05:06 Metamyelocytes # 0.0 K/mm3 07/18/16 05:06 Myelocytes # 0.0 K/mm3 07/18/16 05:06 Promyelocytes # 0.0 K/mm3 07/18/16 05:06 Blast Cells # 0.0 K/mm3 07/18/16 05:06 WBC Morphology Not Reportable 07/18/16 05:06 Hypersegmented Neuts Not Reportable 07/18/16 05:06 Hyposegmented Neuts Not Reportable 07/18/16 05:06 Hypogranular Neuts Not Reportable 07/18/16 05:06 Smudge Cells Not Reportable 07/18/16 05:06 Toxic Granulation Not Reportable 07/18/16 05:06 Toxic Vacuolation Not Reportable 07/18/16 05:06 Dohle Bodies Not Reportable 07/18/16 05:06 Pelger-Huet Anomaly Not Reportable 07/18/16 05:06 Shagufta Rods Not Reportable 07/18/16 05:06 Platelet Estimate Not Reportable 07/18/16 05:06 Clumped Platelets Not Reportable 07/18/16 05:06 Plt Clumps, EDTA Not Reportable 07/18/16 05:06 Large Platelets Not Reportable 07/18/16 05:06 Giant Platelets Not Reportable 07/18/16 05:06 Platelet Satelliting Not Reportable 07/18/16 05:06 Plt Morphology Comment Not Reportable 07/18/16 05:06 RBC Morphology Not Reportable 07/18/16 05:06 Dimorphic RBCs Not Reportable 07/18/16 05:06 Polychromasia Not Reportable 07/18/16 05:06 Hypochromasia Not Reportable 07/18/16 05:06 Poikilocytosis Not Reportable 07/18/16 05:06 Anisocytosis 1+ 07/18/16 05:06 Microcytosis Not Reportable 07/18/16 05:06 Macrocytosis Not Reportable 07/18/16 05:06 Spherocytes Not Reportable 07/18/16 05:06 Pappenheimer Bodies Not Reportable 07/18/16 05:06 Sickle Cells Not Reportable 07/18/16 05:06 Target Cells Not Reportable 07/18/16 05:06 Tear Drop Cells Not Reportable 07/18/16 05:06 Ovalocytes Not Reportable 07/18/16 05:06 Helmet Cells Not Reportable 07/18/16 05:06 [place] Bodies Not Reportable 07/18/16 05:06 [place] Rings Not Reportable 07/18/16 05:06 Radha Cells Not Reportable 07/18/16 05:06 Bite Cells Not Reportable 07/18/16 05:06 Crenated Cell Not Reportable 07/18/16 05:06 Elliptocytes Few 07/18/16 05:06 Acanthocytes (Spur) Not Reportable 07/18/16 05:06 Rouleaux Not Reportable 07/18/16 05:06 Hemoglobin C Crystals Not Reportable 07/18/16 05:06 Schistocytes Not Reportable 07/18/16 05:06 Malaria parasites Not Reportable 07/18/16 05:06 Kaushik Bodies Not Reportable 07/18/16 05:06 Hem Pathologist Commnt No 07/18/16 05:06 PT 14.1 Sec. (12.2-14.9) 07/18/16 05:06 INR 1.10 (0.87-1.13) 07/18/16 05:06 APTT 34.8 Sec. (24.2-36.6) 07/18/16 05:06 D-Dimer 751.80 ng/mlDDU (0-234) H 07/11/16 12:22 POC ABG pH 7.529 (7.35-7.45) H 07/13/16 14:15 POC ABG pCO2 26.8 (35-45) L 07/13/16 14:15 POC ABG pO2 70 (80-105) L 07/13/16 14:15 POC ABG HCO3 22.3 07/13/16 14:15 POC ABG Total CO2 23 07/13/16 14:15 POC ABG O2 Sat 96 07/13/16 14:15 POC ABG Base Excess 0 07/13/16 14:15 FiO2 21 % 07/13/16 14:15 Sodium 140 mmol/L (137-145) 07/18/16 05:06 Potassium 3.8 mmol/L (3.6-5.0) 07/18/16 05:06 Chloride 97.7 mmol/L (98-107) L 07/18/16 05:06 Carbon Dioxide 27 mmol/L (22-30) 07/18/16 05:06 Anion Gap 19 mmol/L 07/18/16 05:06 BUN 51 mg/dL (7-17) H 07/18/16 05:06 Creatinine 2.8 mg/dL (0.7-1.2) H 07/18/16 05:06 Estimated GFR 20 ml/min 07/18/16 05:06 BUN/Creatinine Ratio 18.21 % 07/18/16 05:06 Glucose 252 mg/dL (65-100) H 07/18/16 05:06 POC Glucose 210 (70-105) H 07/18/16 21:34 Hemoglobin A1c 5.6 % (4-6) 07/15/16 04:56 Lactic Acid 0.8 mmol/L (0.7-2.0) 07/19/16 00:37 Calcium 6.4 mg/dL (8.4-10.2) L 07/18/16 05:06 Phosphorus 5.2 mg/dL (2.5-4.5) H 07/17/16 06:52 Magnesium 1.9 mg/dL (1.7-2.3) 07/17/16 06:52 Total Bilirubin < 0.2 mg/dL (0.1-1.2) 07/10/16 06:43 AST 17 units/L (5-40) 07/10/16 06:43 ALT 9 units/L (7-56) 07/10/16 06:43 Alkaline Phosphatase 62 units/L (35-129) 07/10/16 06:43 Total Creatine Kinase 131 units/L (30-135) 07/11/16 12:22 CK-MB (CK-2) 2.0 ng/mL (0.0-4.0) 07/11/16 12:22 CK-MB (CK-2) Rel Index 1.5 (0-4) 07/11/16 12:22 Troponin T < 0.010 ng/mL (0.00-0.029) 07/11/16 12:22 Total Protein 6.7 g/dL (6.3-8.2) 07/10/16 06:43 Albumin 3.5 g/dL (3.9-5) L 07/10/16 06:43 Albumin/Globulin Ratio 1.1 % 07/10/16 06:43 TSH 8.090 mlU/mL (0.270-4.200) H 07/05/16 05:08 Urine Color Straw (Yellow) 07/06/16 01:18 Urine Turbidity Clear (Clear) 07/06/16 01:18 Urine pH 6.0 (5.0-7.0) 07/06/16 01:18 Ur Specific [place] 1.003 (1.003-1.030) 07/06/16 01:18 Urine Protein <15 mg/dl mg/dL (Negative) 07/06/16 01:18 Urine Glucose (UA) Neg mg/dL (Negative) 07/06/16 01:18 Urine Ketones Neg mg/dL (Negative) 07/06/16 01:18 Urine Blood Neg (Negative) 07/06/16 01:18 Urine Nitrite Neg (Negative) 07/06/16 01:18 Urine Bilirubin Neg (Negative) 07/06/16 01:18 Urine Urobilinogen < 2.0 mg/dL (<2.0) 07/06/16 01:18 Ur Leukocyte Esterase Mod (Negative) 07/06/16 01:18 Urine WBC (Auto) 7.0 /HPF (0.0-6.0) H 07/06/16 01:18 Urine RBC (Auto) 3.0 /HPF (0.0-6.0) 07/06/16 01:18 U Epithel Cells (Auto) 1.0 /HPF (0-13.0) 06/30/16 11:34 Urine Bacteria (Auto) 1+ /HPF (Negative) 06/30/16 11:34 Urine Eosinophils None seen (None Seen) 07/06/16 01:18 Urine Creatinine 36.6 mg/dL (0.1-20.0) H 07/06/16 01:18 Urine Microalbumin 6.5 mg/dL (0.1-34.0) 07/06/16 01:18 Microalb/Creat Ratio 177.5 ug/mg 07/06/16 01:18 Urine Sodium 28 mEq/L 07/06/16 01:18 Urine Opiates Screen Presumptive negative 06/30/16 11:34 Urine Methadone Screen Presumptive negative 06/30/16 11:34 Acetaminophen < 15.0 ug/mL (10.0-30.0) 06/30/16 12:01 Ur Barbiturates Screen Presumptive negative 06/30/16 11:34 Ur Phencyclidine Scrn Presumptive negative 06/30/16 11:34 Ur Amphetamines Screen Presumptive negative 06/30/16 11:34 U Benzodiazepines Scrn Presumptive negative 06/30/16 11:34 Urine Cocaine Screen Presumptive negative 06/30/16 11:34 U Marijuana (THC) Screen Presumptive negative 06/30/16 11:34 Drugs of Abuse Note Disclamer 06/30/16 11:34 Plasma/Serum Alcohol < 0.01 gm% (0-0.07) 06/30/16 12:01 Hepatitis A IgM Ab -1 (NonReactive) 07/16/16 19:08 Hep Bs Antigen Non-reactive (Negative) 07/16/16 19:08 Hep B Core IgM Ab Non-reactive (NonReactive) 07/16/16 19:08 Hepatitis C Antibody Non-reactive (NonReactive) 07/16/16 19:08
[2016-07-19] MEDS: HEPARIN SUB-Q SCH ×2 (06:53→15:54)
[2016-07-19] MEDS: SYNTHROID PO SCH (06:55)
[2016-07-19] MEDS: APRESOLINE FEEDTUBE SCH ×2 (06:55→15:58)
[2016-07-19 08:19] LABS: BUN/Creatinine Ratio 16.53; Chloride 96.2 mmol/L (98-107); Potassium 3.9 mmol/L (3.6-5.0)
--- NOTE | 2016-07-19 11:49 | Progress Note ---
Subjective - Reason for Consult Consult date: 07/26/16 Reason for consult: Bipolar med mgt Requesting physician: JOSIAS MICHEL - Chief Complaint Chief complaint: non verbal but nods head 'yes' when asked if she's okay. 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 Admitted to hospital for HTN, UTI and NH placement. BS went to 20 and admitted CCU on vent for few days, Head CT NAF, now extubated and back on floor, nonverbal w Dobhoff tube and renal failure on HD. Mental Status Exam - Vital signs Last Vital Signs Temp 98.6 F 07/19/16 11:00 Pulse 86 07/19/16 11:30 Resp 20 07/19/16 11:00 BP 116/59 07/19/16 11:30 Pulse Ox 100 07/19/16 08:33 - Exam Narrative exam: Alert and seems to be oriented to self. Makes constant eye contact but does not respond verbally, just nods her head 'yes' to most questions. Unable to follow commands. Unable to speak, angioedema improved, but making repetitive movement with her mouth. Affect is blunted. Thought processing impaired. Her memory/Insight and judgment are impaired. Hand restraint to prevent her from pulling out her tubes. No agitation. Orientation: person Affect: flat Mood: calm Thought content: other (blocking) Thought Process: Thought Blocking, Disoriented Perceptions: none Speech: other (none) Concentration: focused (makes good eye contact, attentive) Motor activity: lethargic Level of consciousness: alert, confused Memory: Recent Impaired, Remote Impaired Sleep Symptoms: None Interaction: apathetic Mini mental status exam(if necessary): 0-17 Assessment and Plan ASSESSMENT Encephalopathy, multifactoral s/p Acute hypoxic respiratory failure. Urinary tract infection. Treated. Acute on CKD stage IV. Hyperkalemia. 6.8. Hypernatremia Hypothyroidism Bipolar Disorder Dementia 69yo F admitted with: UTI, HTN, need for NH placement, now s/p respiratory failure with NG tube Family informed staff they would not be able to care for her at home anymore as they were being evicted. - Patient Problems (1) Bipolar disorder Current Visit: No Status: Acute Qualifiers: Active/Remission status: remission status unspecified Most recent bipolar episode type: most recent episode unspecified type Plan to address problem: RECOMMEND: staffed with supervising psych MD, Dr. Lluvia Hernandez 1. Consider reducing Zyprexa to 5mg po HS 2. Use Zyprexa Zydis 5mg SL Q12H PRN breakthrough agitation/psychosis 3. NH placement 4. Psych will follow
[2016-07-19] MEDS: NORMODYNE PO SCH ×3 (13:31→20:30)
[2016-07-19] MEDS: NEURONTIN PO SCH (13:31)
[2016-07-19] MEDS: PEPCID PO SCH (13:32)
[2016-07-19] MEDS: HEPARIN IV PRN (13:53)
--- NOTE | 2016-07-19 14:52 | Progress Note ---
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 , Avoid nephrotoxic agent Monitor renal function (2) Chronic renal insufficiency Current Visit: Yes Status: Acute Subjective Date of service: 07/19/16 Principal diagnosis: Acute Respiratory Failure; Angioedema Interval history: No complaints, Underwent dialysis today Objective - Exam Narrative Exam: Middle-aged female in NAD HEENT normocephalic/atraumatic pink conjunctiva anicteric sclera, Neck is supple no JVD trachea central, Chest is bilateral coarse breath sound equal chest expansion, Heart S1-S2 regular rate and rhythm, Abdomen is soft nontender no organomegaly, Extremities no edema cyanosis or clubbing, Neuro Alert, awake and follows commands - Vital Signs Vital signs: Vital Signs - 12hr 07/19/16 07/19/16 07/19/16 06:50 08:33 11:00 Temperature 100.6 F H 98.6 F Pulse Rate 79 Pulse Rate [ 83 89 Right Radial] Respiratory 18 20 Rate Blood Pressure 115/60 Blood Pressure 125/58 142/65 [Right Arm] O2 Sat by Pulse 100 Oximetry 07/19/16 07/19/16 07/19/16 11:15 11:30 11:45 Temperature Pulse Rate 81 86 80 Pulse Rate [ Right Radial] Respiratory Rate Blood Pressure 120/58 116/59 113/52 Blood Pressure [Right Arm] O2 Sat by Pulse Oximetry 07/19/16 07/19/16 07/19/16 12:00 12:15 12:30 Temperature Pulse Rate 79 84 83 Pulse Rate [ Right Radial] Respiratory Rate Blood Pressure 115/60 123/57 117/62 Blood Pressure [Right Arm] O2 Sat by Pulse Oximetry 07/19/16 07/19/16 07/19/16 12:45 13:00 13:15 Temperature Pulse Rate 85 83 84 Pulse Rate [ Right Radial] Respiratory Rate Blood Pressure 137/61 119/56 122/59 Blood Pressure [Right Arm] O2 Sat by Pulse Oximetry 07/19/16 07/19/16 07/19/16 13:30 13:45 14:00 Temperature Pulse Rate 88 87 81 Pulse Rate [ Right Radial] Respiratory Rate Blood Pressure 119/58 101/53 119/62 Blood Pressure [Right Arm] O2 Sat by Pulse Oximetry 07/19/16 14:10 Temperature 98.0 F Pulse Rate 80 Pulse Rate [ Right Radial] Respiratory 20 Rate Blood Pressure 120/58 Blood Pressure [Right Arm] O2 Sat by Pulse Oximetry - Lab 07/18/16 05:06 07/19/16 07:09 Most recent lab results Calcium 6.0 mg/dL (8.4-10.2) L 07/19/16 07:09 Phosphorus 5.2 mg/dL (2.5-4.5) H 07/17/16 06:52 Magnesium 1.9 mg/dL (1.7-2.3) 07/17/16 06:52 Urine Creatinine 36.6 mg/dL (0.1-20.0) H 07/06/16 01:18 Urine Sodium 28 mEq/L 07/06/16 01:18
[2016-07-19] MEDS: NACL 0.9% 1000 ML 1,000 ML IV SCH (15:53)
--- NOTE | 2016-07-19 16:30 | Event Note ---
Date: 07/19/16 - had discussion w/ pt daughter yesterday regarding PEG tube - family would like to discuss with primary team this and other issues, are not yet willing to consent with peg - will await discussion between family and primary team - please call if decision made to have peg
--- NOTE | 2016-07-19 20:19 | Progress Note ---
Subjective Date of service: 07/19/16 Principal diagnosis: Acute Respiratory Failure; Angioedema Interval history: Assessment and Plan Objective Vital Signs - 12hr 07/19/16 07/19/16 07/19/16 08:33 11:00 11:15 Temperature 100.6 F H 98.6 F Pulse Rate 79 81 Pulse Rate [ Apical] Pulse Rate [ 89 Right Radial] Respiratory 18 20 Rate Blood Pressure 115/60 120/58 Blood Pressure 142/65 [Right Arm] O2 Sat by Pulse 100 Oximetry 07/19/16 07/19/16 07/19/16 11:30 11:45 12:00 Temperature Pulse Rate 86 80 79 Pulse Rate [ Apical] Pulse Rate [ Right Radial] Respiratory Rate Blood Pressure 116/59 113/52 115/60 Blood Pressure [Right Arm] O2 Sat by Pulse Oximetry 07/19/16 07/19/16 07/19/16 12:15 12:30 12:45 Temperature Pulse Rate 84 83 85 Pulse Rate [ Apical] Pulse Rate [ Right Radial] Respiratory Rate Blood Pressure 123/57 117/62 137/61 Blood Pressure [Right Arm] O2 Sat by Pulse Oximetry 07/19/16 07/19/16 07/19/16 13:00 13:15 13:30 Temperature Pulse Rate 83 84 88 Pulse Rate [ Apical] Pulse Rate [ Right Radial] Respiratory Rate Blood Pressure 119/56 122/59 119/58 Blood Pressure [Right Arm] O2 Sat by Pulse Oximetry 07/19/16 07/19/16 07/19/16 13:45 14:00 14:10 Temperature 98.0 F Pulse Rate 87 81 80 Pulse Rate [ Apical] Pulse Rate [ Right Radial] Respiratory 20 Rate Blood Pressure 101/53 119/62 120/58 Blood Pressure [Right Arm] O2 Sat by Pulse Oximetry 07/19/16 15:22 Temperature 99.0 F Pulse Rate Pulse Rate [ 80 Apical] Pulse Rate [ Right Radial] Respiratory 20 Rate Blood Pressure Blood Pressure 120/58 [Right Arm] O2 Sat by Pulse Oximetry Constitutional: no acute distress, lethargic Eyes: non-icteric ENT: oropharynx moist Neck: supple, no lymphadenopathy Effort: normal Ascultation: Bilateral: clear, diminished breath sounds Cardiovascular: regular rate and rhythm Gastrointestinal: normoactive bowel sounds, soft, non-tender, non-distended Integumentary: normal Extremities: no cyanosis, no edema, pulses normal, no ischemia or petechiae Neurologic: non-focal exam (grossly), pupils equal and round, CN II-XII normal Psychiatric: anxious CBC and BMP: 07/18/16 05:06 07/19/16 07:09 ABG, PT/INR, D-dimer: ABG POC ABG pH 7.529 (7.35-7.45) H 07/13/16 14:15 POC ABG pCO2 26.8 (35-45) L 07/13/16 14:15 POC ABG pO2 70 (80-105) L 07/13/16 14:15 POC ABG HCO3 22.3 07/13/16 14:15 POC ABG Total CO2 23 07/13/16 14:15 POC ABG O2 Sat 96 07/13/16 14:15 PT/INR, D-dimer PT 14.1 Sec. (12.2-14.9) 07/18/16 05:06 INR 1.10 (0.87-1.13) 07/18/16 05:06 D-Dimer 751.80 ng/mlDDU (0-234) H 07/11/16 12:22 Abnormal lab findings: Abnormal Labs 07/03/16 07/03/16 07/04/16 14:34 14:34 06:21 WBC 3.9 L RBC 3.16 L 3.04 L Hgb 8.5 L 8.0 L Hct 26.8 L 25.6 L MCH 27 L 26 L RDW 16.5 H 16.2 H Plt Count Lymph % (Auto) [place] % (Auto) 10.7 H 10.7 H Lymph # 1.0 L [place] # Seg Neutrophils % Seg Neuts % (Manual) Lymphocytes % (Manual) Seg Neutrophils # Seg Neutrophils # Man Lymphocytes # (Manual) D-Dimer POC ABG pH POC ABG pCO2 POC ABG pO2 Sodium Potassium Chloride 107.6 H Carbon Dioxide BUN 27 H Creatinine 2.6 H Glucose POC Glucose Calcium 8.0 L Phosphorus Albumin TSH Urine WBC (Auto) Urine Creatinine 07/04/16 07/04/16 07/04/16 06:21 11:30 16:33 WBC RBC Hgb Hct MCH RDW Plt Count Lymph % (Auto) [place] % (Auto) Lymph # [place] # Seg Neutrophils % Seg Neuts % (Manual) Lymphocytes % (Manual) Seg Neutrophils # Seg Neutrophils # Man Lymphocytes # (Manual) D-Dimer POC ABG pH POC ABG pCO2 POC ABG pO2 Sodium Potassium Chloride 107.4 H Carbon Dioxide 21 L BUN 27 H Creatinine 2.7 H Glucose POC Glucose 110 H 106 H Calcium 7.8 L Phosphorus Albumin TSH Urine WBC (Auto) Urine Creatinine 07/05/16 07/05/16 07/05/16 05:08 05:08 05:08 WBC 4.0 L RBC 2.87 L Hgb 7.7 L Hct 24.2 L MCH 27 L RDW 16.0 H Plt Count Lymph % (Auto) [place] % (Auto) Lymph # [place] # Seg Neutrophils % Seg Neuts % (Manual) Lymphocytes % (Manual) Seg Neutrophils # Seg Neutrophils # Man Lymphocytes # (Manual) D-Dimer POC ABG pH POC ABG pCO2 POC ABG pO2 Sodium Potassium Chloride Carbon Dioxide 21 L BUN 32 H Creatinine 3.7 H Glucose POC Glucose Calcium 7.8 L Phosphorus Albumin TSH 8.090 H Urine WBC (Auto) Urine Creatinine 07/05/16 07/06/16 07/06/16 11:45 01:18 01:18 WBC RBC Hgb 8.3 L Hct 25.9 L MCH RDW Plt Count Lymph % (Auto) [place] % (Auto) Lymph # [place] # Seg Neutrophils % Seg Neuts % (Manual) Lymphocytes % (Manual) Seg Neutrophils # Seg Neutrophils # Man Lymphocytes # (Manual) D-Dimer POC ABG pH POC ABG pCO2 POC ABG pO2 Sodium Potassium Chloride Carbon Dioxide BUN Creatinine Glucose POC Glucose Calcium Phosphorus Albumin TSH Urine WBC (Auto) 7.0 H Urine Creatinine 36.6 H 07/06/16 07/06/16 07/06/16 05:55 05:55 16:07 WBC 3.0 L RBC 2.79 L Hgb 7.5 L Hct 23.5 L MCH 27 L RDW 16.5 H Plt Count Lymph % (Auto) [place] % (Auto) Lymph # [place] # Seg Neutrophils % Seg Neuts % (Manual) Lymphocytes % (Manual) Seg Neutrophils # Seg Neutrophils # Man Lymphocytes # (Manual) D-Dimer POC ABG pH POC ABG pCO2 POC ABG pO2 Sodium Potassium Chloride 109.3 H Carbon Dioxide 20 L BUN 32 H Creatinine 3.4 H Glucose POC Glucose 117 H Calcium 7.5 L Phosphorus Albumin TSH Urine WBC (Auto) Urine Creatinine 1207/07/16 07/08/16 06:19 16:13 00:09 WBC RBC Hgb Hct MCH RDW Plt Count Lymph % (Auto) [place] % (Auto) Lymph # [place] # Seg Neutrophils % Seg Neuts % (Manual) Lymphocytes % (Manual) Seg Neutrophils # Seg Neutrophils # Man Lymphocytes # (Manual) D-Dimer POC ABG pH POC ABG pCO2 POC ABG pO2 Sodium Potassium Chloride 111.1 H Carbon Dioxide 20 L BUN 31 H Creatinine 3.1 H Glucose POC Glucose 108 H 134 H Calcium 8.0 L Phosphorus Albumin TSH Urine WBC (Auto) Urine Creatinine 07/08/16 07/08/16 07/08/16 11:39 16:31 21:22 WBC RBC Hgb Hct MCH RDW Plt Count Lymph % (Auto) [place] % (Auto) Lymph # [place] # Seg Neutrophils % Seg Neuts % (Manual) Lymphocytes % (Manual) Seg Neutrophils # Seg Neutrophils # Man Lymphocytes # (Manual) D-Dimer POC ABG pH POC ABG pCO2 POC ABG pO2 Sodium Potassium Chloride Carbon Dioxide BUN Creatinine Glucose POC Glucose 119 H 130 H 152 H Calcium Phosphorus Albumin TSH Urine WBC (Auto) Urine Creatinine 07/09/16 07/09/16 07/09/16 05:52 05:52 06:02 WBC RBC 3.55 L Hgb 9.4 L Hct MCH 27 L RDW 17.1 H Plt Count Lymph % (Auto) [place] % (Auto) Lymph # [place] # Seg Neutrophils % Seg Neuts % (Manual) Lymphocytes % (Manual) Seg Neutrophils # Seg Neutrophils # Man Lymphocytes # (Manual) D-Dimer POC ABG pH POC ABG pCO2 POC ABG pO2 Sodium 147 H Potassium 5.4 H Chloride 112.8 H Carbon Dioxide 21 L BUN 30 H Creatinine 2.5 H Glucose 21 L* POC Glucose < 40 L Calcium Phosphorus Albumin TSH Urine WBC (Auto) Urine Creatinine 07/09/16 07/09/16 07/10/16 11:31 16:50 05:23 WBC RBC Hgb Hct MCH RDW Plt Count Lymph % (Auto) [place] % (Auto) Lymph # [place] # Seg Neutrophils % Seg Neuts % (Manual) Lymphocytes % (Manual) Seg Neutrophils # Seg Neutrophils # Man Lymphocytes # (Manual) D-Dimer POC ABG pH POC ABG pCO2 POC ABG pO2 Sodium Potassium Chloride Carbon Dioxide BUN Creatinine Glucose POC Glucose 114 H 149 H < 40 L Calcium Phosphorus Albumin TSH Urine WBC (Auto) Urine Creatinine 07/10/16 07/10/16 07/10/16 06:03 06:43 06:43 WBC RBC 2.90 L Hgb 7.7 L Hct 25.0 L MCH 27 L RDW 17.0 H Plt Count Lymph % (Auto) [place] % (Auto) 10.4 H Lymph # 1.1 L [place] # Seg Neutrophils % Seg Neuts % (Manual) Lymphocytes % (Manual) Seg Neutrophils # Seg Neutrophils # Man Lymphocytes # (Manual) D-Dimer POC ABG pH POC ABG pCO2 POC ABG pO2 Sodium 148 H Potassium 5.1 H Chloride 111.7 H Carbon Dioxide 20 L BUN 31 H Creatinine 2.4 H Glucose POC Glucose 211 H Calcium 8.0 L Phosphorus Albumin 3.5 L TSH Urine WBC (Auto) Urine Creatinine 07/10/16 07/11/16 07/11/16 14:55 05:37 05:47 WBC RBC Hgb 7.9 L Hct 25.5 L MCH RDW Plt Count Lymph % (Auto) [place] % (Auto) Lymph # [place] # Seg Neutrophils % Seg Neuts % (Manual) Lymphocytes % (Manual) Seg Neutrophils # Seg Neutrophils # Man Lymphocytes # (Manual) D-Dimer POC ABG pH POC ABG pCO2 POC ABG pO2 Sodium Potassium Chloride Carbon Dioxide BUN Creatinine Glucose POC Glucose < 40 L > 500 H Calcium Phosphorus Albumin TSH Urine WBC (Auto) Urine Creatinine 07/11/16 07/11/16 07/11/16 05:56 07:42 07:48 WBC RBC Hgb Hct MCH RDW Plt Count Lymph % (Auto) [place] % (Auto) Lymph # [place] # Seg Neutrophils % Seg Neuts % (Manual) Lymphocytes % (Manual) Seg Neutrophils # Seg Neutrophils # Man Lymphocytes # (Manual) D-Dimer POC ABG pH POC ABG pCO2 POC ABG pO2 Sodium Potassium Chloride Carbon Dioxide BUN Creatinine Glucose POC Glucose 262 H 56 L 54 L Calcium Phosphorus Albumin TSH Urine WBC (Auto) Urine Creatinine 07/11/16 07/11/16 07/11/16 08:34 08:50 09:53 WBC RBC Hgb Hct MCH RDW Plt Count Lymph % (Auto) [place] % (Auto) Lymph # [place] # Seg Neutrophils % Seg Neuts % (Manual) Lymphocytes % (Manual) Seg Neutrophils # Seg Neutrophils # Man Lymphocytes # (Manual) D-Dimer POC ABG pH POC ABG pCO2 31.1 L POC ABG pO2 108 H Sodium Potassium Chloride Carbon Dioxide BUN Creatinine Glucose POC Glucose 110 H 68 L Calcium Phosphorus Albumin TSH Urine WBC (Auto) Urine Creatinine 07/11/16 07/11/16 07/11/16 11:48 12:22 12:22 WBC 11.6 H RBC Hgb Hct MCH 27 L RDW 17.2 H Plt Count Lymph % (Auto) [place] % (Auto) Lymph # [place] # Seg Neutrophils % Seg Neuts % (Manual) 91.0 H Lymphocytes % (Manual) 5.0 L Seg Neutrophils # 10.8 H Seg Neutrophils # Man 10.6 H Lymphocytes # (Manual) 0.6 L D-Dimer 751.80 H POC ABG pH POC ABG pCO2 POC ABG pO2 Sodium Potassium Chloride Carbon Dioxide BUN Creatinine Glucose POC Glucose 118 H Calcium Phosphorus Albumin TSH Urine WBC (Auto) Urine Creatinine 07/11/16 07/11/16 07/11/16 12:22 12:29 15:23 WBC RBC Hgb Hct MCH RDW Plt Count Lymph % (Auto) [place] % (Auto) Lymph # [place] # Seg Neutrophils % Seg Neuts % (Manual) Lymphocytes % (Manual) Seg Neutrophils # Seg Neutrophils # Man Lymphocytes # (Manual) D-Dimer POC ABG pH POC ABG pCO2 28.4 L POC ABG pO2 Sodium Potassium 6.1 H* Chloride 109.4 H Carbon Dioxide 18 L BUN 30 H Creatinine 2.1 H Glucose 126 H POC Glucose 204 H Calcium Phosphorus Albumin TSH Urine WBC (Auto) Urine Creatinine 07/11/16 07/11/16 07/11/16 17:27 17:55 21:42 WBC RBC Hgb Hct MCH RDW Plt Count Lymph % (Auto) [place] % (Auto) Lymph # [place] # Seg Neutrophils % Seg Neuts % (Manual) Lymphocytes % (Manual) Seg Neutrophils # Seg Neutrophils # Man Lymphocytes # (Manual) D-Dimer POC ABG pH POC ABG pCO2 POC ABG pO2 Sodium 146 H Potassium 6.5 H* Chloride 109.7 H Carbon Dioxide 20 L BUN 32 H Creatinine 2.4 H Glucose 167 H POC Glucose 433 H 142 H Calcium Phosphorus Albumin TSH Urine WBC (Auto) Urine Creatinine 07/12/16 07/12/16 07/12/16 04:34 04:34 05:22 WBC 14.0 H RBC Hgb Hct MCH 27 L RDW 17.6 H Plt Count 113 L Lymph % (Auto) [place] % (Auto) Lymph # [place] # Seg Neutrophils % Seg Neuts % (Manual) 87.0 H Lymphocytes % (Manual) 11.0 L Seg Neutrophils # Seg Neutrophils # Man 12.2 H Lymphocytes # (Manual) D-Dimer POC ABG pH 7.452 H POC ABG pCO2 29.6 L POC ABG pO2 Sodium Potassium 6.8 H* Chloride 110.2 H Carbon Dioxide 16 L BUN 43 H Creatinine 2.9 H Glucose 113 H POC Glucose Calcium Phosphorus Albumin TSH Urine WBC (Auto) Urine Creatinine 07/12/16 07/12/16 07/12/16 13:24 17:28 21:11 WBC RBC Hgb Hct MCH RDW Plt Count Lymph % (Auto) [place] % (Auto) Lymph # [place] # Seg Neutrophils % Seg Neuts % (Manual) Lymphocytes % (Manual) Seg Neutrophils # Seg Neutrophils # Man Lymphocytes # (Manual) D-Dimer POC ABG pH POC ABG pCO2 POC ABG pO2 Sodium 150 H Potassium Chloride 108.9 H Carbon Dioxide 21 L BUN 52 H Creatinine 3.7 H Glucose 143 H POC Glucose 148 H 134 H Calcium 8.0 L Phosphorus Albumin TSH Urine WBC (Auto) Urine Creatinine 07/12/16 07/13/16 07/13/16 21:50 04:40 04:40 WBC 14.0 H RBC 3.50 L Hgb 9.3 L Hct 29.3 L MCH 27 L RDW 17.3 H Plt Count Lymph % (Auto) 4.9 L [place] % (Auto) Lymph # 0.7 L [place] # Seg Neutrophils % 90.0 H Seg Neuts % (Manual) 93.0 H Lymphocytes % (Manual) 5.0 L Seg Neutrophils # 12.6 H Seg Neutrophils # Man 13.0 H Lymphocytes # (Manual) 0.7 L D-Dimer POC ABG pH POC ABG pCO2 POC ABG pO2 Sodium 151 H Potassium Chloride 109.3 H Carbon Dioxide BUN 59 H Creatinine 4.0 H Glucose 63 L POC Glucose 156 H Calcium 7.7 L Phosphorus Albumin TSH Urine WBC (Auto) Urine Creatinine 07/13/16 07/13/16 07/13/16 06:10 06:40 08:03 WBC RBC Hgb Hct MCH RDW Plt Count Lymph % (Auto) [place] % (Auto) Lymph # [place] # Seg Neutrophils % Seg Neuts % (Manual) Lymphocytes % (Manual) Seg Neutrophils # Seg Neutrophils # Man Lymphocytes # (Manual) D-Dimer POC ABG pH POC ABG pCO2 POC ABG pO2 Sodium Potassium Chloride Carbon Dioxide BUN Creatinine Glucose POC Glucose 68 L 176 H 141 H Calcium Phosphorus Albumin TSH Urine WBC (Auto) Urine Creatinine 07/13/16 07/13/16 07/13/16 09:17 12:30 14:15 WBC RBC Hgb Hct MCH RDW Plt Count Lymph % (Auto) [place] % (Auto) Lymph # [place] # Seg Neutrophils % Seg Neuts % (Manual) Lymphocytes % (Manual) Seg Neutrophils # Seg Neutrophils # Man Lymphocytes # (Manual) D-Dimer POC ABG pH 7.475 H 7.529 H POC ABG pCO2 33.4 L 26.8 L POC ABG pO2 110 H 70 L Sodium Potassium Chloride Carbon Dioxide BUN Creatinine Glucose POC Glucose 177 H Calcium Phosphorus Albumin TSH Urine WBC (Auto) Urine Creatinine 07/13/16 07/13/16 07/13/16 15:28 17:57 22:10 WBC RBC Hgb Hct MCH RDW Plt Count Lymph % (Auto) [place] % (Auto) Lymph # [place] # Seg Neutrophils % Seg Neuts % (Manual) Lymphocytes % (Manual) Seg Neutrophils # Seg Neutrophils # Man Lymphocytes # (Manual) D-Dimer POC ABG pH POC ABG pCO2 POC ABG pO2 Sodium Potassium Chloride Carbon Dioxide BUN Creatinine Glucose POC Glucose 122 H 166 H 197 H Calcium Phosphorus Albumin TSH Urine WBC (Auto) Urine Creatinine 07/14/16 07/14/16 07/14/16 02:00 04:21 04:21 WBC RBC 3.01 L Hgb 8.1 L Hct 25.3 L MCH 27 L RDW 17.9 H Plt Count Lymph % (Auto) 6.1 L [place] % (Auto) Lymph # 0.5 L [place] # Seg Neutrophils % 89.9 H Seg Neuts % (Manual) Lymphocytes % (Manual) Seg Neutrophils # Seg Neutrophils # Man Lymphocytes # (Manual) D-Dimer POC ABG pH POC ABG pCO2 POC ABG pO2 Sodium 150 H Potassium Chloride 107.3 H Carbon Dioxide 21 L BUN 82 H Creatinine 4.8 H Glucose 176 H POC Glucose 166 H Calcium 6.8 L Phosphorus Albumin TSH Urine WBC (Auto) Urine Creatinine 07/14/16 07/14/16 07/14/16 05:32 09:42 22:32 WBC RBC Hgb Hct MCH RDW Plt Count Lymph % (Auto) [place] % (Auto) Lymph # [place] # Seg Neutrophils % Seg Neuts % (Manual) Lymphocytes % (Manual) Seg Neutrophils # Seg Neutrophils # Man Lymphocytes # (Manual) D-Dimer POC ABG pH POC ABG pCO2 POC ABG pO2 Sodium Potassium Chloride Carbon Dioxide BUN Creatinine Glucose POC Glucose 202 H 216 H 191 H Calcium Phosphorus Albumin TSH Urine WBC (Auto) Urine Creatinine 07/15/16 07/15/16 07/15/16 04:46 04:56 04:56 WBC RBC 3.04 L Hgb 8.2 L Hct 25.8 L MCH 27 L RDW 17.3 H Plt Count Lymph % (Auto) 4.2 L [place] % (Auto) 11.8 H Lymph # 0.4 L [place] # 1.1 H Seg Neutrophils % 83.9 H Seg Neuts % (Manual) Lymphocytes % (Manual) Seg Neutrophils # Seg Neutrophils # Man Lymphocytes # (Manual) D-Dimer POC ABG pH POC ABG pCO2 POC ABG pO2 Sodium 147 H Potassium 3.4 L Chloride Carbon Dioxide 20 L BUN 109 H Creatinine 5.2 H Glucose 242 H POC Glucose 275 H Calcium 6.3 L Phosphorus Albumin TSH Urine WBC (Auto) Urine Creatinine 07/15/16 07/15/16 07/15/16 11:32 16:52 20:41 WBC RBC Hgb Hct MCH RDW Plt Count Lymph % (Auto) [place] % (Auto) Lymph # [place] # Seg Neutrophils % Seg Neuts % (Manual) Lymphocytes % (Manual) Seg Neutrophils # Seg Neutrophils # Man Lymphocytes # (Manual) D-Dimer POC ABG pH POC ABG pCO2 POC ABG pO2 Sodium Potassium Chloride Carbon Dioxide BUN Creatinine Glucose POC Glucose 250 H 195 H 219 H Calcium Phosphorus Albumin TSH Urine WBC (Auto) Urine Creatinine 07/16/16 07/16/16 07/16/16 00:37 05:47 09:54 WBC RBC 3.20 L Hgb 8.6 L Hct 27.3 L MCH 27 L RDW 17.1 H Plt Count Lymph % (Auto) 4.2 L [place] % (Auto) Lymph # 0.3 L [place] # Seg Neutrophils % 89.6 H Seg Neuts % (Manual) Lymphocytes % (Manual) Seg Neutrophils # Seg Neutrophils # Man Lymphocytes # (Manual) D-Dimer POC ABG pH POC ABG pCO2 POC ABG pO2 Sodium Potassium Chloride Carbon Dioxide BUN Creatinine Glucose POC Glucose 257 H 223 H Calcium Phosphorus Albumin TSH Urine WBC (Auto) Urine Creatinine 07/16/16 07/16/16 07/16/16 09:54 11:54 17:48 WBC RBC Hgb Hct MCH RDW Plt Count Lymph % (Auto) [place] % (Auto) Lymph # [place] # Seg Neutrophils % Seg Neuts % (Manual) Lymphocytes % (Manual) Seg Neutrophils # Seg Neutrophils # Man Lymphocytes # (Manual) D-Dimer POC ABG pH POC ABG pCO2 POC ABG pO2 Sodium 148 H Potassium Chloride Carbon Dioxide 21 L BUN 146 H Creatinine 6.0 H Glucose 249 H POC Glucose 294 H 195 H Calcium 6.4 L Phosphorus Albumin TSH Urine WBC (Auto) Urine Creatinine 07/16/16 07/16/16 07/17/16 21:54 23:53 05:53 WBC RBC Hgb Hct MCH RDW Plt Count Lymph % (Auto) [place] % (Auto) Lymph # [place] # Seg Neutrophils % Seg Neuts % (Manual) Lymphocytes % (Manual) Seg Neutrophils # Seg Neutrophils # Man Lymphocytes # (Manual) D-Dimer POC ABG pH POC ABG pCO2 POC ABG pO2 Sodium Potassium Chloride Carbon Dioxide BUN Creatinine Glucose POC Glucose 161 H 171 H 208 H Calcium Phosphorus Albumin TSH Urine WBC (Auto) Urine Creatinine 07/17/16 07/17/16 07/17/16 06:52 06:52 11:28 WBC RBC 3.17 L Hgb 8.6 L Hct 26.4 L MCH 27 L RDW 17.2 H Plt Count Lymph % (Auto) [place] % (Auto) Lymph # [place] # Seg Neutrophils % Seg Neuts % (Manual) 90.0 H Lymphocytes % (Manual) 8.0 L Seg Neutrophils # Seg Neutrophils # Man Lymphocytes # (Manual) 0.6 L D-Dimer POC ABG pH POC ABG pCO2 POC ABG pO2 Sodium Potassium Chloride Carbon Dioxide BUN 87 H Creatinine 4.2 H Glucose 231 H POC Glucose 255 H Calcium 6.2 L Phosphorus 5.2 H Albumin TSH Urine WBC (Auto) Urine Creatinine 07/17/16 07/17/16 07/18/16 16:22 23:41 05:06 WBC RBC 3.25 L Hgb 8.8 L Hct 27.2 L MCH 27 L RDW 17.0 H Plt Count Lymph % (Auto) [place] % (Auto) Lymph # [place] # Seg Neutrophils % Seg Neuts % (Manual) 80.0 H Lymphocytes % (Manual) 10.0 L Seg Neutrophils # Seg Neutrophils # Man Lymphocytes # (Manual) 0.9 L D-Dimer POC ABG pH POC ABG pCO2 POC ABG pO2 Sodium Potassium Chloride Carbon Dioxide BUN Creatinine Glucose POC Glucose 263 H 195 H Calcium Phosphorus Albumin TSH Urine WBC (Auto) Urine Creatinine 07/18/16 07/18/16 07/18/16 05:06 06:52 11:52 WBC RBC Hgb Hct MCH RDW Plt Count Lymph % (Auto) [place] % (Auto) Lymph # [place] # Seg Neutrophils % Seg Neuts % (Manual) Lymphocytes % (Manual) Seg Neutrophils # Seg Neutrophils # Man Lymphocytes # (Manual) D-Dimer POC ABG pH POC ABG pCO2 POC ABG pO2 Sodium Potassium Chloride 97.7 L Carbon Dioxide BUN 51 H Creatinine 2.8 H Glucose 252 H POC Glucose 289 H 242 H Calcium 6.4 L Phosphorus Albumin TSH Urine WBC (Auto) Urine Creatinine 07/18/16 07/18/16 07/19/16 16:36 21:34 05:50 WBC RBC Hgb Hct MCH RDW Plt Count Lymph % (Auto) [place] % (Auto) Lymph # [place] # Seg Neutrophils % Seg Neuts % (Manual) Lymphocytes % (Manual) Seg Neutrophils # Seg Neutrophils # Man Lymphocytes # (Manual) D-Dimer POC ABG pH POC ABG pCO2 POC ABG pO2 Sodium Potassium Chloride Carbon Dioxide BUN Creatinine Glucose POC Glucose 221 H 210 H 273 H Calcium Phosphorus Albumin TSH Urine WBC (Auto) Urine Creatinine 07/19/16 07/19/16 07:09 17:06 WBC RBC Hgb Hct MCH RDW Plt Count Lymph % (Auto) [place] % (Auto) Lymph # [place] # Seg Neutrophils % Seg Neuts % (Manual) Lymphocytes % (Manual) Seg Neutrophils # Seg Neutrophils # Man Lymphocytes # (Manual) D-Dimer POC ABG pH POC ABG pCO2 POC ABG pO2 Sodium Potassium Chloride 96.2 L Carbon Dioxide BUN 81 H Creatinine 4.9 H D Glucose 260 H POC Glucose 143 H Calcium 6.0 L Phosphorus Albumin TSH Urine WBC (Auto) Urine Creatinine
[2016-07-20] MEDS: HEPARIN SUB-Q SCH ×4 (01:28→21:17)
[2016-07-20] MEDS: NOVOLOG SUB-Q SCH ×5 (01:29→23:08)
[2016-07-20] MEDS: NEURONTIN PO SCH ×3 (01:30→21:18)
[2016-07-20] MEDS: APRESOLINE FEEDTUBE SCH ×4 (01:31→23:07)
[2016-07-20] MEDS: SYNTHROID PO SCH (06:05)
[2016-07-20 06:41] LABS: BUN/Creatinine Ratio 12.28; Calcium 6.5 mg/dL (8.4-10.2); Chloride 94.4 mmol/L (98-107); Potassium 3.4 mmol/L (3.6-5.0)
--- NOTE | 2016-07-20 07:23 | Progress Note ---
Assessment and Plan - Patient Problems (1) Acute respiratory failure Current Visit: Yes Status: Resolved Plan to address problem: supportive care, supplemental oxygen, nebs, aspiration precautions. (2) Dysphagia Current Visit: Yes Status: Acute Plan to address problem: GI consulted, Pending PEG placement (3) Encephalopathy acute Current Visit: Yes Status: Chronic Plan to address problem: Metabolic: continue supportive care. (4) Acute UTI Current Visit: No Status: Acute Plan to address problem: Iv abx, supportive care (5) Bipolar disorder Current Visit: No Status: Acute Qualifiers: Active/Remission status: remission status unspecified Most recent bipolar episode type: most recent episode unspecified type Plan to address problem: psych consulted, (6) DVT prophylaxis Current Visit: No Status: Acute History Interval history: Pt lying in bed, nonverbal, no reported nursing events. Case management consulted, D/C planning s/p peg placement. Hospitalist Physical - Constitutional Vitals: Temp Pulse Resp BP Pulse Ox 97.7 F 84 16 114/56 100 07/19/16 21:30 07/20/16 06:15 07/20/16 06:00 07/20/16 06:15 07/19/16 21:30 General appearance: Present: no acute distress, obese - EENT Eyes: Present: PERRL, EOM intact ENT: hearing intact - Neck Neck: Present: supple - Respiratory Respiratory: bilateral: diminished - Cardiovascular Rhythm: regular Heart Sounds: Present: S1 & S2 - Extremities Extremities: no ischemia Extremity abnormal: edema - Abdominal General gastrointestinal: soft, non-tender, non-distended - Integumentary Integumentary: Present: clear, dry - Psychiatric Psychiatric: no intact judgment & insight, no memory intact - Neurologic Neurologic: no gait normal Results - Labs CBC & Chem 7: 07/18/16 05:06 07/20/16 05:21 Labs: Laboratory Last Values WBC 8.6 K/mm3 (4.5-11.0) 07/18/16 05:06 RBC 3.25 M/mm3 (3.65-5.03) L 07/18/16 05:06 Hgb 8.8 gm/dl (10.1-14.3) L 07/18/16 05:06 Hct 27.2 % (30.3-42.9) L 07/18/16 05:06 MCV 84 fl (79-97) 07/18/16 05:06 MCH 27 pg (28-32) L 07/18/16 05:06 MCHC 33 % (30-34) 07/18/16 05:06 RDW 17.0 % (13.2-15.2) H 07/18/16 05:06 Plt Count 175 K/mm3 (140-440) 07/18/16 05:06 Lymph % (Auto) 4.2 % (13.4-35.0) L 07/16/16 09:54 [place] % (Auto) 6.1 % (0.0-7.3) 07/16/16 09:54 Eos % (Auto) 0.0 % (0.0-4.3) 07/16/16 09:54 Baso % (Auto) 0.1 % (0.0-1.8) 07/16/16 09:54 Lymph # 0.3 K/mm3 (1.2-5.4) L 07/16/16 09:54 Imperial # 0.5 K/mm3 (0.0-0.8) 07/16/16 09:54 Eos # 0.0 K/mm3 (0.0-0.4) 07/16/16 09:54 Baso # 0.0 K/mm3 (0.0-0.1) 07/16/16 09:54 Add Manual Diff Complete 07/18/16 05:06 Total Counted 100 07/18/16 05:06 Seg Neutrophils % Floor Installation Mechanic 07/18/16 05:06 Seg Neuts % (Manual) 80.0 % (40.0-70.0) H 07/18/16 05:06 Band Neutrophils % 4.0 % 07/18/16 05:06 Lymphocytes % (Manual) 10.0 % (13.4-35.0) L 07/18/16 05:06 Reactive Lymphs % (Man) 0 % 07/18/16 05:06 Monocytes % (Manual) 6.0 % (0.0-7.3) 07/18/16 05:06 Eosinophils % (Manual) 0 % (0.0-4.3) 07/17/16 06:52 Basophils % (Manual) 0 % (0.0-1.8) 07/17/16 06:52 Metamyelocytes % 0 % 07/18/16 05:06 Myelocytes % 0 % 07/18/16 05:06 Promyelocytes % 0 % 07/18/16 05:06 Blast Cells % 0 % 07/18/16 05:06 Nucleated RBC % Not Reportable 07/18/16 05:06 Seg Neutrophils # 7.5 K/mm3 (1.8-7.7) 07/16/16 09:54 Seg Neutrophils # Man 6.9 K/mm3 (1.8-7.7) 07/18/16 05:06 Band Neutrophils # 0.3 K/mm3 07/18/16 05:06 Lymphocytes # (Manual) 0.9 K/mm3 (1.2-5.4) L 07/18/16 05:06 Abs React Lymphs (Man) 0.0 K/mm3 07/18/16 05:06 Monocytes # (Manual) 0.5 K/mm3 (0.0-0.8) 07/18/16 05:06 Eosinophils # (Manual) 0.0 K/mm3 (0.0-0.4) 07/18/16 05:06 Basophils # (Manual) 0.0 K/mm3 (0.0-0.1) 07/18/16 05:06 Metamyelocytes # 0.0 K/mm3 07/18/16 05:06 Myelocytes # 0.0 K/mm3 07/18/16 05:06 Promyelocytes # 0.0 K/mm3 07/18/16 05:06 Blast Cells # 0.0 K/mm3 07/18/16 05:06 WBC Morphology Not Reportable 07/18/16 05:06 Hypersegmented Neuts Not Reportable 07/18/16 05:06 Hyposegmented Neuts Not Reportable 07/18/16 05:06 Hypogranular Neuts Not Reportable 07/18/16 05:06 Smudge Cells Not Reportable 07/18/16 05:06 Toxic Granulation Not Reportable 07/18/16 05:06 Toxic Vacuolation Not Reportable 07/18/16 05:06 Dohle Bodies Not Reportable 07/18/16 05:06 Pelger-Huet Anomaly Not Reportable 07/18/16 05:06 Shagufta Rods Not Reportable 07/18/16 05:06 Platelet Estimate Not Reportable 07/18/16 05:06 Clumped Platelets Not Reportable 07/18/16 05:06 Plt Clumps, EDTA Not Reportable 07/18/16 05:06 Large Platelets Not Reportable 07/18/16 05:06 Giant Platelets Not Reportable 07/18/16 05:06 Platelet Satelliting Not Reportable 07/18/16 05:06 Plt Morphology Comment Not Reportable 07/18/16 05:06 RBC Morphology Not Reportable 07/18/16 05:06 Dimorphic RBCs Not Reportable 07/18/16 05:06 Polychromasia Not Reportable 07/18/16 05:06 Hypochromasia Not Reportable 07/18/16 05:06 Poikilocytosis Not Reportable 07/18/16 05:06 Anisocytosis 1+ 07/18/16 05:06 Microcytosis Not Reportable 07/18/16 05:06 Macrocytosis Not Reportable 07/18/16 05:06 Spherocytes Not Reportable 07/18/16 05:06 Pappenheimer Bodies Not Reportable 07/18/16 05:06 Sickle Cells Not Reportable 07/18/16 05:06 Target Cells Not Reportable 07/18/16 05:06 Tear Drop Cells Not Reportable 07/18/16 05:06 Ovalocytes Not Reportable 07/18/16 05:06 Helmet Cells Not Reportable 07/18/16 05:06 Pérez-Freer Bodies Not Reportable 07/18/16 05:06 [place] Rings Not Reportable 07/18/16 05:06 [place] Cells Not Reportable 07/18/16 05:06 Bite Cells Not Reportable 07/18/16 05:06 Crenated Cell Not Reportable 07/18/16 05:06 Elliptocytes Few 07/18/16 05:06 Acanthocytes (Spur) Not Reportable 07/18/16 05:06 Rouleaux Not Reportable 07/18/16 05:06 Hemoglobin C Crystals Not Reportable 07/18/16 05:06 Schistocytes Not Reportable 07/18/16 05:06 Malaria parasites Not Reportable 07/18/16 05:06 Kaushik Bodies Not Reportable 07/18/16 05:06 Hem Pathologist Commnt No 07/18/16 05:06 PT 14.1 Sec. (12.2-14.9) 07/18/16 05:06 INR 1.10 (0.87-1.13) 07/18/16 05:06 APTT 34.8 Sec. (24.2-36.6) 07/18/16 05:06 D-Dimer 751.80 ng/mlDDU (0-234) H 07/11/16 12:22 POC ABG pH 7.529 (7.35-7.45) H 07/13/16 14:15 POC ABG pCO2 26.8 (35-45) L 07/13/16 14:15 POC ABG pO2 70 (80-105) L 07/13/16 14:15 POC ABG HCO3 22.3 07/13/16 14:15 POC ABG Total CO2 23 07/13/16 14:15 POC ABG O2 Sat 96 07/13/16 14:15 POC ABG Base Excess 0 07/13/16 14:15 FiO2 21 % 07/13/16 14:15 Sodium 136 mmol/L (137-145) L 07/20/16 05:21 Potassium 3.4 mmol/L (3.6-5.0) L 07/20/16 05:21 Chloride 94.4 mmol/L (98-107) L 07/20/16 05:21 Carbon Dioxide 26 mmol/L (22-30) 07/20/16 05:21 Anion Gap 19 mmol/L 07/20/16 05:21 BUN 43 mg/dL (7-17) H 07/20/16 05:21 Creatinine 3.5 mg/dL (0.7-1.2) H 07/20/16 05:21 Estimated GFR 16 ml/min 07/20/16 05:21 BUN/Creatinine Ratio 12.28 % 07/20/16 05:21 Glucose 263 mg/dL (65-100) H 07/20/16 05:21 POC Glucose 299 (70-105) H 07/20/16 06:29 Hemoglobin A1c 5.6 % (4-6) 07/15/16 04:56 Lactic Acid 0.8 mmol/L (0.7-2.0) 07/19/16 00:37 Calcium 6.5 mg/dL (8.4-10.2) L 07/20/16 05:21 Phosphorus 5.2 mg/dL (2.5-4.5) H 07/17/16 06:52 Magnesium 1.9 mg/dL (1.7-2.3) 07/17/16 06:52 Total Bilirubin < 0.2 mg/dL (0.1-1.2) 07/10/16 06:43 AST 17 units/L (5-40) 07/10/16 06:43 ALT 9 units/L (7-56) 07/10/16 06:43 Alkaline Phosphatase 62 units/L (35-129) 07/10/16 06:43 Total Creatine Kinase 131 units/L (30-135) 07/11/16 12:22 CK-MB (CK-2) 2.0 ng/mL (0.0-4.0) 07/11/16 12:22 CK-MB (CK-2) Rel Index 1.5 (0-4) 07/11/16 12:22 Troponin T < 0.010 ng/mL (0.00-0.029) 07/11/16 12:22 Total Protein 6.7 g/dL (6.3-8.2) 07/10/16 06:43 Albumin 3.5 g/dL (3.9-5) L 07/10/16 06:43 Albumin/Globulin Ratio 1.1 % 07/10/16 06:43 TSH 8.090 mlU/mL (0.270-4.200) H 07/05/16 05:08 Urine Color Straw (Yellow) 07/06/16 01:18 Urine Turbidity Clear (Clear) 07/06/16 01:18 Urine pH 6.0 (5.0-7.0) 07/06/16 01:18 Ur Specific Worth 1.003 (1.003-1.030) 07/06/16 01:18 Urine Protein <15 mg/dl mg/dL (Negative) 07/06/16 01:18 Urine Glucose (UA) Neg mg/dL (Negative) 07/06/16 01:18 Urine Ketones Neg mg/dL (Negative) 07/06/16 01:18 Urine Blood Neg (Negative) 07/06/16 01:18 Urine Nitrite Neg (Negative) 07/06/16 01:18 Urine Bilirubin Neg (Negative) 07/06/16 01:18 Urine Urobilinogen < 2.0 mg/dL (<2.0) 07/06/16 01:18 Ur Leukocyte Esterase Mod (Negative) 07/06/16 01:18 Urine WBC (Auto) 7.0 /HPF (0.0-6.0) H 07/06/16 01:18 Urine RBC (Auto) 3.0 /HPF (0.0-6.0) 07/06/16 01:18 U Epithel Cells (Auto) 1.0 /HPF (0-13.0) 06/30/16 11:34 Urine Bacteria (Auto) 1+ /HPF (Negative) 06/30/16 11:34 Urine Eosinophils None seen (None Seen) 07/06/16 01:18 Urine Creatinine 36.6 mg/dL (0.1-20.0) H 07/06/16 01:18 Urine Microalbumin 6.5 mg/dL (0.1-34.0) 07/06/16 01:18 Microalb/Creat Ratio 177.5 ug/mg 07/06/16 01:18 Urine Sodium 28 mEq/L 07/06/16 01:18 Urine Opiates Screen Presumptive negative 06/30/16 11:34 Urine Methadone Screen Presumptive negative 06/30/16 11:34 Acetaminophen < 15.0 ug/mL (10.0-30.0) 06/30/16 12:01 Ur Barbiturates Screen Presumptive negative 06/30/16 11:34 Ur Phencyclidine Scrn Presumptive negative 06/30/16 11:34 Ur Amphetamines Screen Presumptive negative 06/30/16 11:34 U Benzodiazepines Scrn Presumptive negative 06/30/16 11:34 Urine Cocaine Screen Presumptive negative 06/30/16 11:34 U Marijuana (THC) Screen Presumptive negative 06/30/16 11:34 Drugs of Abuse Note Disclamer 06/30/16 11:34 Plasma/Serum Alcohol < 0.01 gm% (0-0.07) 06/30/16 12:01 Hepatitis A IgM Ab -1 (NonReactive) 07/16/16 19:08 Hep Bs Antigen Non-reactive (Negative) 07/16/16 19:08 Hep B Core IgM Ab Non-reactive (NonReactive) 07/16/16 19:08 Hepatitis C Antibody Non-reactive (NonReactive) 07/16/16 19:08
[2016-07-20] MEDS: PEPCID PO SCH (09:04)
[2016-07-20] MEDS: NORMODYNE PO SCH ×3 (09:04→23:05)
--- NOTE | 2016-07-20 12:19 | Progress Note ---
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 (2) Chronic renal insufficiency Current Visit: Yes Status: Acute Subjective Date of service: 07/20/16 Principal diagnosis: Acute Respiratory Failure; Angioedema Interval history: No complaints Objective - Exam Narrative Exam: Middle-aged female in NAD HEENT normocephalic/atraumatic pink conjunctiva anicteric sclera, Neck is supple no JVD trachea central, Chest is bilateral coarse breath sound equal chest expansion, Heart S1-S2 regular rate and rhythm, Abdomen is soft nontender no organomegaly, Extremities no edema cyanosis or clubbing, Neuro Alert, awake and follows commands - Vital Signs Vital signs: Vital Signs - 12hr 07/20/16 07/20/16 07/20/16 06:00 06:15 07:45 Temperature 98.7 F Pulse Rate Pulse Rate [ 84 95 H Right Radial] Respiratory 12 Rate Respiratory 16 Rate [denies pain] Blood Pressure Blood Pressure 114/56 103/57 [Right Arm] O2 Sat by Pulse 98 Oximetry 07/20/16 07/20/16 09:04 10:00 Temperature Pulse Rate 95 H Pulse Rate [ Right Radial] Respiratory Rate Respiratory Rate [denies pain] Blood Pressure 103/57 Blood Pressure [Right Arm] O2 Sat by Pulse 100 Oximetry - Lab 07/18/16 05:06 07/20/16 05:21 Most recent lab results Calcium 6.5 mg/dL (8.4-10.2) L 07/20/16 05:21 Phosphorus 5.2 mg/dL (2.5-4.5) H 07/17/16 06:52 Magnesium 1.9 mg/dL (1.7-2.3) 07/17/16 06:52 Urine Creatinine 36.6 mg/dL (0.1-20.0) H 07/06/16 01:18 Urine Sodium 28 mEq/L 07/06/16 01:18
--- NOTE | 2016-07-20 13:06 | Progress Note ---
Subjective - Reason for Consult Consult date: 07/20/16 Reason for consult: Bipolar Requesting physician: JOSIAS MICHEL - Chief Complaint Chief complaint: starting to try to make verbalizations, still nods head 'yes' to all questions. 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 Admitted to hospital for HTN, UTI and NH placement. BS went to 20 and admitted CCU on vent for few days, Head CT NAF, now extubated and back on floor, nonverbal w Dobhoff tube and renal failure on HD. Mental Status Exam - Vital signs Last Vital Signs Temp 98.7 F 07/20/16 07:45 Pulse 95 H 07/20/16 09:04 Resp 12 07/20/16 07:45 BP 103/57 07/20/16 09:04 Pulse Ox 100 07/20/16 10:00 - Exam Narrative exam: Alert and seems to be oriented to self. Makes constant eye contact any is trying to respond verbally, but the noises are incoherent. Still unable to speak any words coherently, angioedema improved, but continues making repetitive movement with her mouth. Affect is blunted. Mood--does not appear to be in any distress. Calm, cooperative, no agitation. She still nods her head 'yes' to most questions. Thought processing modest improvement. --When asked to raise her arm (and I raised mine) she was able to follow this instruction. Her memory/Insight and judgment are impaired. Orientation: person Affect: other (blunted) Mood: calm Thought content: other (poverty) Thought Process: Disoriented Perceptions: none Speech: incoherent Concentration: distractible Motor activity: lethargic Level of consciousness: alert, confused Memory: Recent Impaired, Remote Impaired Sleep Symptoms: None Interaction: other (tries to make verbalizations, incoherent) Mini mental status exam(if necessary): 0-17 Assessment and Plan ASSESSMENT Encephalopathy, multifactoral s/p Acute hypoxic respiratory failure. Urinary tract infection. Treated. Acute on CKD stage IV. Hyperkalemia. 6.8. Hypernatremia Hypothyroidism Bipolar Disorder Dementia 69yo F admitted with: UTI, HTN, need for NH placement, now s/p respiratory failure with NG tube Family informed staff they would not be able to care for her at home anymore as they were being evicted. - Patient Problems (1) Bipolar disorder Current Visit: No Status: Acute Qualifiers: Active/Remission status: remission status unspecified Most recent bipolar episode type: most recent episode unspecified type Plan to address problem: RECOMMEND: staffed with supervising psych MD, Dr. Lluvia Hernandez 1. Consider reducing Zyprexa to 5mg po HS 2. Use Zyprexa Zydis 5mg SL Q12H PRN breakthrough agitation/psychosis 3. NH placement 4. Psych will follow
--- NOTE | 2016-07-20 18:23 | Progress Note ---
Assessment and Plan - Patient Problems (1) Angioedema Current Visit: Yes Status: Acute (2) Dysphagia Current Visit: Yes Status: Acute (3) Encephalopathy acute Current Visit: Yes Status: Chronic Subjective Date of service: 07/20/16 Principal diagnosis: Acute Respiratory Failure; Angioedema Interval history: Assessment and Plan Objective - Exam Narrative Exam: Alert and seems to be oriented to self. Makes constant eye contact any is trying to respond verbally, but the noises are incoherent. Still unable to speak any words coherently, angioedema improved, but continues making repetitive movement with her mouth. Affect is blunted. She still nods her head 'yes' to most questions. Vital Signs - 12hr 07/20/16 07/20/16 07/20/16 07:45 09:04 10:00 Temperature 98.7 F Pulse Rate 95 H Pulse Rate [ Left Radial] Pulse Rate [ 95 H Right Radial] Respiratory 12 Rate Blood Pressure 103/57 Blood Pressure 103/57 [Right Arm] O2 Sat by Pulse 98 100 Oximetry 07/20/16 07/20/16 07/20/16 13:36 13:42 15:10 Temperature 99.6 F Pulse Rate 84 Pulse Rate [ 82 Left Radial] Pulse Rate [ 86 Right Radial] Respiratory 18 Rate Blood Pressure 110/70 Blood Pressure 110/70 96/52 [Right Arm] O2 Sat by Pulse Oximetry Constitutional: no acute distress, lethargic Eyes: non-icteric ENT: oropharynx moist Neck: supple, no lymphadenopathy Effort: normal Ascultation: Bilateral: clear, diminished breath sounds Cardiovascular: regular rate and rhythm Gastrointestinal: normoactive bowel sounds, soft, non-tender, non-distended Integumentary: normal Extremities: no cyanosis, no edema, pulses normal, no ischemia or petechiae Neurologic: non-focal exam (grossly), pupils equal and round, CN II-XII normal Psychiatric: anxious CBC and BMP: 07/18/16 05:06 07/20/16 05:21 ABG, PT/INR, D-dimer: ABG POC ABG pH 7.529 (7.35-7.45) H 07/13/16 14:15 POC ABG pCO2 26.8 (35-45) L 07/13/16 14:15 POC ABG pO2 70 (80-105) L 07/13/16 14:15 POC ABG HCO3 22.3 07/13/16 14:15 POC ABG Total CO2 23 07/13/16 14:15 POC ABG O2 Sat 96 07/13/16 14:15 PT/INR, D-dimer PT 14.1 Sec. (12.2-14.9) 07/18/16 05:06 INR 1.10 (0.87-1.13) 07/18/16 05:06 D-Dimer 751.80 ng/mlDDU (0-234) H 07/11/16 12:22 Abnormal lab findings: Abnormal Labs 07/03/16 07/03/16 07/04/16 14:34 14:34 06:21 WBC 3.9 L RBC 3.16 L 3.04 L Hgb 8.5 L 8.0 L Hct 26.8 L 25.6 L MCH 27 L 26 L RDW 16.5 H 16.2 H Plt Count Lymph % (Auto) [place] % (Auto) 10.7 H 10.7 H Lymph # 1.0 L [place] # Seg Neutrophils % Seg Neuts % (Manual) Lymphocytes % (Manual) Seg Neutrophils # Seg Neutrophils # Man Lymphocytes # (Manual) D-Dimer POC ABG pH POC ABG pCO2 POC ABG pO2 Sodium Potassium Chloride 107.6 H Carbon Dioxide BUN 27 H Creatinine 2.6 H Glucose POC Glucose Calcium 8.0 L Phosphorus Albumin TSH Urine WBC (Auto) Urine Creatinine 07/04/16 07/04/16 07/04/16 06:21 11:30 16:33 WBC RBC Hgb Hct MCH RDW Plt Count Lymph % (Auto) [place] % (Auto) Lymph # [place] # Seg Neutrophils % Seg Neuts % (Manual) Lymphocytes % (Manual) Seg Neutrophils # Seg Neutrophils # Man Lymphocytes # (Manual) D-Dimer POC ABG pH POC ABG pCO2 POC ABG pO2 Sodium Potassium Chloride 107.4 H Carbon Dioxide 21 L BUN 27 H Creatinine 2.7 H Glucose POC Glucose 110 H 106 H Calcium 7.8 L Phosphorus Albumin TSH Urine WBC (Auto) Urine Creatinine 07/05/16 07/05/16 07/05/16 05:08 05:08 05:08 WBC 4.0 L RBC 2.87 L Hgb 7.7 L Hct 24.2 L MCH 27 L RDW 16.0 H Plt Count Lymph % (Auto) [place] % (Auto) Lymph # [place] # Seg Neutrophils % Seg Neuts % (Manual) Lymphocytes % (Manual) Seg Neutrophils # Seg Neutrophils # Man Lymphocytes # (Manual) D-Dimer POC ABG pH POC ABG pCO2 POC ABG pO2 Sodium Potassium Chloride Carbon Dioxide 21 L BUN 32 H Creatinine 3.7 H Glucose POC Glucose Calcium 7.8 L Phosphorus Albumin TSH 8.090 H Urine WBC (Auto) Urine Creatinine 07/05/16 07/06/16 07/06/16 11:45 01:18 01:18 WBC RBC Hgb 8.3 L Hct 25.9 L MCH RDW Plt Count Lymph % (Auto) [place] % (Auto) Lymph # [place] # Seg Neutrophils % Seg Neuts % (Manual) Lymphocytes % (Manual) Seg Neutrophils # Seg Neutrophils # Man Lymphocytes # (Manual) D-Dimer POC ABG pH POC ABG pCO2 POC ABG pO2 Sodium Potassium Chloride Carbon Dioxide BUN Creatinine Glucose POC Glucose Calcium Phosphorus Albumin TSH Urine WBC (Auto) 7.0 H Urine Creatinine 36.6 H 07/06/16 07/06/16 07/06/16 05:55 05:55 16:07 WBC 3.0 L RBC 2.79 L Hgb 7.5 L Hct 23.5 L MCH 27 L RDW 16.5 H Plt Count Lymph % (Auto) [place] % (Auto) Lymph # [place] # Seg Neutrophils % Seg Neuts % (Manual) Lymphocytes % (Manual) Seg Neutrophils # Seg Neutrophils # Man Lymphocytes # (Manual) D-Dimer POC ABG pH POC ABG pCO2 POC ABG pO2 Sodium Potassium Chloride 109.3 H Carbon Dioxide 20 L BUN 32 H Creatinine 3.4 H Glucose POC Glucose 117 H Calcium 7.5 L Phosphorus Albumin TSH Urine WBC (Auto) Urine Creatinine 07/07/16 07/07/16 07/08/16 06:19 16:13 00:09 WBC RBC Hgb Hct MCH RDW Plt Count Lymph % (Auto) [place] % (Auto) Lymph # [place] # Seg Neutrophils % Seg Neuts % (Manual) Lymphocytes % (Manual) Seg Neutrophils # Seg Neutrophils # Man Lymphocytes # (Manual) D-Dimer POC ABG pH POC ABG pCO2 POC ABG pO2 Sodium Potassium Chloride 111.1 H Carbon Dioxide 20 L BUN 31 H Creatinine 3.1 H Glucose POC Glucose 108 H 134 H Calcium 8.0 L Phosphorus Albumin TSH Urine WBC (Auto) Urine Creatinine 07/08/16 07/08/1616 11:39 16:31 21:22 WBC RBC Hgb Hct MCH RDW Plt Count Lymph % (Auto) [place] % (Auto) Lymph # [place] # Seg Neutrophils % Seg Neuts % (Manual) Lymphocytes % (Manual) Seg Neutrophils # Seg Neutrophils # Man Lymphocytes # (Manual) D-Dimer POC ABG pH POC ABG pCO2 POC ABG pO2 Sodium Potassium Chloride Carbon Dioxide BUN Creatinine Glucose POC Glucose 119 H 130 H 152 H Calcium Phosphorus Albumin TSH Urine WBC (Auto) Urine Creatinine 07/09/16 07/09/16 07/09/16 05:52 05:52 06:02 WBC RBC 3.55 L Hgb 9.4 L Hct MCH 27 L RDW 17.1 H Plt Count Lymph % (Auto) [place] % (Auto) Lymph # [place] # Seg Neutrophils % Seg Neuts % (Manual) Lymphocytes % (Manual) Seg Neutrophils # Seg Neutrophils # Man Lymphocytes # (Manual) D-Dimer POC ABG pH POC ABG pCO2 POC ABG pO2 Sodium 147 H Potassium 5.4 H Chloride 112.8 H Carbon Dioxide 21 L BUN 30 H Creatinine 2.5 H Glucose 21 L* POC Glucose < 40 L Calcium Phosphorus Albumin TSH Urine WBC (Auto) Urine Creatinine 07/09/16 07/09/16 07/10/16 11:31 16:50 05:23 WBC RBC Hgb Hct MCH RDW Plt Count Lymph % (Auto) [place] % (Auto) Lymph # [place] # Seg Neutrophils % Seg Neuts % (Manual) Lymphocytes % (Manual) Seg Neutrophils # Seg Neutrophils # Man Lymphocytes # (Manual) D-Dimer POC ABG pH POC ABG pCO2 POC ABG pO2 Sodium Potassium Chloride Carbon Dioxide BUN Creatinine Glucose POC Glucose 114 H 149 H < 40 L Calcium Phosphorus Albumin TSH Urine WBC (Auto) Urine Creatinine 07/10/16 07/10/16 07/10/16 06:03 06:43 06:43 WBC RBC 2.90 L Hgb 7.7 L Hct 25.0 L MCH 27 L RDW 17.0 H Plt Count Lymph % (Auto) [place] % (Auto) 10.4 H Lymph # 1.1 L [place] # Seg Neutrophils % Seg Neuts % (Manual) Lymphocytes % (Manual) Seg Neutrophils # Seg Neutrophils # Man Lymphocytes # (Manual) D-Dimer POC ABG pH POC ABG pCO2 POC ABG pO2 Sodium 148 H Potassium 5.1 H Chloride 111.7 H Carbon Dioxide 20 L BUN 31 H Creatinine 2.4 H Glucose POC Glucose 211 H Calcium 8.0 L Phosphorus Albumin 3.5 L TSH Urine WBC (Auto) Urine Creatinine 07/10/16 07/11/16 07/11/16 14:55 05:37 05:47 WBC RBC Hgb 7.9 L Hct 25.5 L MCH RDW Plt Count Lymph % (Auto) [place] % (Auto) Lymph # [place] # Seg Neutrophils % Seg Neuts % (Manual) Lymphocytes % (Manual) Seg Neutrophils # Seg Neutrophils # Man Lymphocytes # (Manual) D-Dimer POC ABG pH POC ABG pCO2 POC ABG pO2 Sodium Potassium Chloride Carbon Dioxide BUN Creatinine Glucose POC Glucose < 40 L > 500 H Calcium Phosphorus Albumin TSH Urine WBC (Auto) Urine Creatinine 07/11/16 07/11/16 07/11/16 05:56 07:42 07:48 WBC RBC Hgb Hct MCH RDW Plt Count Lymph % (Auto) [place] % (Auto) Lymph # [place] # Seg Neutrophils % Seg Neuts % (Manual) Lymphocytes % (Manual) Seg Neutrophils # Seg Neutrophils # Man Lymphocytes # (Manual) D-Dimer POC ABG pH POC ABG pCO2 POC ABG pO2 Sodium Potassium Chloride Carbon Dioxide BUN Creatinine Glucose POC Glucose 262 H 56 L 54 L Calcium Phosphorus Albumin TSH Urine WBC (Auto) Urine Creatinine 07/11/16 07/11/16 07/11/16 08:34 08:50 09:53 WBC RBC Hgb Hct MCH RDW Plt Count Lymph % (Auto) [place] % (Auto) Lymph # [place] # Seg Neutrophils % Seg Neuts % (Manual) Lymphocytes % (Manual) Seg Neutrophils # Seg Neutrophils # Man Lymphocytes # (Manual) D-Dimer POC ABG pH POC ABG pCO2 31.1 L POC ABG pO2 108 H Sodium Potassium Chloride Carbon Dioxide BUN Creatinine Glucose POC Glucose 110 H 68 L Calcium Phosphorus Albumin TSH Urine WBC (Auto) Urine Creatinine 07/11/16 07/11/16 07/11/16 11:48 12:22 12:22 WBC 11.6 H RBC Hgb Hct MCH 27 L RDW 17.2 H Plt Count Lymph % (Auto) [place] % (Auto) Lymph # [place] # Seg Neutrophils % Seg Neuts % (Manual) 91.0 H Lymphocytes % (Manual) 5.0 L Seg Neutrophils # 10.8 H Seg Neutrophils # Man 10.6 H Lymphocytes # (Manual) 0.6 L D-Dimer 751.80 H POC ABG pH POC ABG pCO2 POC ABG pO2 Sodium Potassium Chloride Carbon Dioxide BUN Creatinine Glucose POC Glucose 118 H Calcium Phosphorus Albumin TSH Urine WBC (Auto) Urine Creatinine 07/11/16 07/11/16 07/11/16 12:22 12:29 15:23 WBC RBC Hgb Hct MCH RDW Plt Count Lymph % (Auto) [place] % (Auto) Lymph # [place] # Seg Neutrophils % Seg Neuts % (Manual) Lymphocytes % (Manual) Seg Neutrophils # Seg Neutrophils # Man Lymphocytes # (Manual) D-Dimer POC ABG pH POC ABG pCO2 28.4 L POC ABG pO2 Sodium Potassium 6.1 H* Chloride 109.4 H Carbon Dioxide 18 L BUN 30 H Creatinine 2.1 H Glucose 126 H POC Glucose 204 H Calcium Phosphorus Albumin TSH Urine WBC (Auto) Urine Creatinine 07/11/16 07/11/16 07/11/16 17:27 17:55 21:42 WBC RBC Hgb Hct MCH RDW Plt Count Lymph % (Auto) [place] % (Auto) Lymph # [place] # Seg Neutrophils % Seg Neuts % (Manual) Lymphocytes % (Manual) Seg Neutrophils # Seg Neutrophils # Man Lymphocytes # (Manual) D-Dimer POC ABG pH POC ABG pCO2 POC ABG pO2 Sodium 146 H Potassium 6.5 H* Chloride 109.7 H Carbon Dioxide 20 L BUN 32 H Creatinine 2.4 H Glucose 167 H POC Glucose 433 H 142 H Calcium Phosphorus Albumin TSH Urine WBC (Auto) Urine Creatinine 07/12/16 07/12/16 07/12/16 04:34 04:34 05:22 WBC 14.0 H RBC Hgb Hct MCH 27 L RDW 17.6 H Plt Count 113 L Lymph % (Auto) [place] % (Auto) Lymph # [place] # Seg Neutrophils % Seg Neuts % (Manual) 87.0 H Lymphocytes % (Manual) 11.0 L Seg Neutrophils # Seg Neutrophils # Man 12.2 H Lymphocytes # (Manual) D-Dimer POC ABG pH 7.452 H POC ABG pCO2 29.6 L POC ABG pO2 Sodium Potassium 6.8 H* Chloride 110.2 H Carbon Dioxide 16 L BUN 43 H Creatinine 2.9 H Glucose 113 H POC Glucose Calcium Phosphorus Albumin TSH Urine WBC (Auto) Urine Creatinine 07/12/16 07/12/16 07/12/16 13:24 17:28 21:11 WBC RBC Hgb Hct MCH RDW Plt Count Lymph % (Auto) [place] % (Auto) Lymph # [place] # Seg Neutrophils % Seg Neuts % (Manual) Lymphocytes % (Manual) Seg Neutrophils # Seg Neutrophils # Man Lymphocytes # (Manual) D-Dimer POC ABG pH POC ABG pCO2 POC ABG pO2 Sodium 150 H Potassium Chloride 108.9 H Carbon Dioxide 21 L BUN 52 H Creatinine 3.7 H Glucose 143 H POC Glucose 148 H 134 H Calcium 8.0 L Phosphorus Albumin TSH Urine WBC (Auto) Urine Creatinine 07/12/16 07/13/16 07/13/16 21:50 04:40 04:40 WBC 14.0 H RBC 3.50 L Hgb 9.3 L Hct 29.3 L MCH 27 L RDW 17.3 H Plt Count Lymph % (Auto) 4.9 L [place] % (Auto) Lymph # 0.7 L [place] # Seg Neutrophils % 90.0 H Seg Neuts % (Manual) 93.0 H Lymphocytes % (Manual) 5.0 L Seg Neutrophils # 12.6 H Seg Neutrophils # Man 13.0 H Lymphocytes # (Manual) 0.7 L D-Dimer POC ABG pH POC ABG pCO2 POC ABG pO2 Sodium 151 H Potassium Chloride 109.3 H Carbon Dioxide BUN 59 H Creatinine 4.0 H Glucose 63 L POC Glucose 156 H Calcium 7.7 L Phosphorus Albumin TSH Urine WBC (Auto) Urine Creatinine 07/13/16 07/13/16 07/13/16 06:10 06:40 08:03 WBC RBC Hgb Hct MCH RDW Plt Count Lymph % (Auto) [place] % (Auto) Lymph # [place] # Seg Neutrophils % Seg Neuts % (Manual) Lymphocytes % (Manual) Seg Neutrophils # Seg Neutrophils # Man Lymphocytes # (Manual) D-Dimer POC ABG pH POC ABG pCO2 POC ABG pO2 Sodium Potassium Chloride Carbon Dioxide BUN Creatinine Glucose POC Glucose 68 L 176 H 141 H Calcium Phosphorus Albumin TSH Urine WBC (Auto) Urine Creatinine 07/13/16 07/13/16 07/13/16 09:17 12:30 14:15 WBC RBC Hgb Hct MCH RDW Plt Count Lymph % (Auto) [place] % (Auto) Lymph # [place] # Seg Neutrophils % Seg Neuts % (Manual) Lymphocytes % (Manual) Seg Neutrophils # Seg Neutrophils # Man Lymphocytes # (Manual) D-Dimer POC ABG pH 7.475 H 7.529 H POC ABG pCO2 33.4 L 26.8 L POC ABG pO2 110 H 70 L Sodium Potassium Chloride Carbon Dioxide BUN Creatinine Glucose POC Glucose 177 H Calcium Phosphorus Albumin TSH Urine WBC (Auto) Urine Creatinine 07/13/16 07/13/16 07/13/16 15:28 17:57 22:10 WBC RBC Hgb Hct MCH RDW Plt Count Lymph % (Auto) [place] % (Auto) Lymph # [place] # Seg Neutrophils % Seg Neuts % (Manual) Lymphocytes % (Manual) Seg Neutrophils # Seg Neutrophils # Man Lymphocytes # (Manual) D-Dimer POC ABG pH POC ABG pCO2 POC ABG pO2 Sodium Potassium Chloride Carbon Dioxide BUN Creatinine Glucose POC Glucose 122 H 166 H 197 H Calcium Phosphorus Albumin TSH Urine WBC (Auto) Urine Creatinine 07/14/16 07/14/16 07/14/16 02:00 04:21 04:21 WBC RBC 3.01 L Hgb 8.1 L Hct 25.3 L MCH 27 L RDW 17.9 H Plt Count Lymph % (Auto) 6.1 L [place] % (Auto) Lymph # 0.5 L [place] # Seg Neutrophils % 89.9 H Seg Neuts % (Manual) Lymphocytes % (Manual) Seg Neutrophils # Seg Neutrophils # Man Lymphocytes # (Manual) D-Dimer POC ABG pH POC ABG pCO2 POC ABG pO2 Sodium 150 H Potassium Chloride 107.3 H Carbon Dioxide 21 L BUN 82 H Creatinine 4.8 H Glucose 176 H POC Glucose 166 H Calcium 6.8 L Phosphorus Albumin TSH Urine WBC (Auto) Urine Creatinine 07/14/16 07/14/16 07/14/16 05:32 09:42 22:32 WBC RBC Hgb Hct MCH RDW Plt Count Lymph % (Auto) [place] % (Auto) Lymph # [place] # Seg Neutrophils % Seg Neuts % (Manual) Lymphocytes % (Manual) Seg Neutrophils # Seg Neutrophils # Man Lymphocytes # (Manual) D-Dimer POC ABG pH POC ABG pCO2 POC ABG pO2 Sodium Potassium Chloride Carbon Dioxide BUN Creatinine Glucose POC Glucose 202 H 216 H 191 H Calcium Phosphorus Albumin TSH Urine WBC (Auto) Urine Creatinine 07/15/16 07/15/16 07/15/16 04:46 04:56 04:56 WBC RBC 3.04 L Hgb 8.2 L Hct 25.8 L MCH 27 L RDW 17.3 H Plt Count Lymph % (Auto) 4.2 L [place] % (Auto) 11.8 H Lymph # 0.4 L [place] # 1.1 H Seg Neutrophils % 83.9 H Seg Neuts % (Manual) Lymphocytes % (Manual) Seg Neutrophils # Seg Neutrophils # Man Lymphocytes # (Manual) D-Dimer POC ABG pH POC ABG pCO2 POC ABG pO2 Sodium 147 H Potassium 3.4 L Chloride Carbon Dioxide 20 L BUN 109 H Creatinine 5.2 H Glucose 242 H POC Glucose 275 H Calcium 6.3 L Phosphorus Albumin TSH Urine WBC (Auto) Urine Creatinine 07/15/16 07/15/16 07/15/16 11:32 16:52 20:41 WBC RBC Hgb Hct MCH RDW Plt Count Lymph % (Auto) [place] % (Auto) Lymph # [place] # Seg Neutrophils % Seg Neuts % (Manual) Lymphocytes % (Manual) Seg Neutrophils # Seg Neutrophils # Man Lymphocytes # (Manual) D-Dimer POC ABG pH POC ABG pCO2 POC ABG pO2 Sodium Potassium Chloride Carbon Dioxide BUN Creatinine Glucose POC Glucose 250 H 195 H 219 H Calcium Phosphorus Albumin TSH Urine WBC (Auto) Urine Creatinine 07/16/16 07/16/16 07/16/16 00:37 05:47 09:54 WBC RBC 3.20 L Hgb 8.6 L Hct 27.3 L MCH 27 L RDW 17.1 H Plt Count Lymph % (Auto) 4.2 L [place] % (Auto) Lymph # 0.3 L [place] # Seg Neutrophils % 89.6 H Seg Neuts % (Manual) Lymphocytes % (Manual) Seg Neutrophils # Seg Neutrophils # Man Lymphocytes # (Manual) D-Dimer POC ABG pH POC ABG pCO2 POC ABG pO2 Sodium Potassium Chloride Carbon Dioxide BUN Creatinine Glucose POC Glucose 257 H 223 H Calcium Phosphorus Albumin TSH Urine WBC (Auto) Urine Creatinine 07/16/16 07/16/16 07/16/16 09:54 11:54 17:48 WBC RBC Hgb Hct MCH RDW Plt Count Lymph % (Auto) [place] % (Auto) Lymph # [place] # Seg Neutrophils % Seg Neuts % (Manual) Lymphocytes % (Manual) Seg Neutrophils # Seg Neutrophils # Man Lymphocytes # (Manual) D-Dimer POC ABG pH POC ABG pCO2 POC ABG pO2 Sodium 148 H Potassium Chloride Carbon Dioxide 21 L BUN 146 H Creatinine 6.0 H Glucose 249 H POC Glucose 294 H 195 H Calcium 6.4 L Phosphorus Albumin TSH Urine WBC (Auto) Urine Creatinine 07/16/16 07/16/16 07/17/16 21:54 23:53 05:53 WBC RBC Hgb Hct MCH RDW Plt Count Lymph % (Auto) [place] % (Auto) Lymph # [place] # Seg Neutrophils % Seg Neuts % (Manual) Lymphocytes % (Manual) Seg Neutrophils # Seg Neutrophils # Man Lymphocytes # (Manual) D-Dimer POC ABG pH POC ABG pCO2 POC ABG pO2 Sodium Potassium Chloride Carbon Dioxide BUN Creatinine Glucose POC Glucose 161 H 171 H 208 H Calcium Phosphorus Albumin TSH Urine WBC (Auto) Urine Creatinine 07/17/16 07/17/16 07/17/16 06:52 06:52 11:28 WBC RBC 3.17 L Hgb 8.6 L Hct 26.4 L MCH 27 L RDW 17.2 H Plt Count Lymph % (Auto) [place] % (Auto) Lymph # [place] # Seg Neutrophils % Seg Neuts % (Manual) 90.0 H Lymphocytes % (Manual) 8.0 L Seg Neutrophils # Seg Neutrophils # Man Lymphocytes # (Manual) 0.6 L D-Dimer POC ABG pH POC ABG pCO2 POC ABG pO2 Sodium Potassium Chloride Carbon Dioxide BUN 87 H Creatinine 4.2 H Glucose 231 H POC Glucose 255 H Calcium 6.2 L Phosphorus 5.2 H Albumin TSH Urine WBC (Auto) Urine Creatinine 07/17/16 07/17/16 07/18/16 16:22 23:41 05:06 WBC RBC 3.25 L Hgb 8.8 L Hct 27.2 L MCH 27 L RDW 17.0 H Plt Count Lymph % (Auto) [place] % (Auto) Lymph # [place] # Seg Neutrophils % Seg Neuts % (Manual) 80.0 H Lymphocytes % (Manual) 10.0 L Seg Neutrophils # Seg Neutrophils # Man Lymphocytes # (Manual) 0.9 L D-Dimer POC ABG pH POC ABG pCO2 POC ABG pO2 Sodium Potassium Chloride Carbon Dioxide BUN Creatinine Glucose POC Glucose 263 H 195 H Calcium Phosphorus Albumin TSH Urine WBC (Auto) Urine Creatinine 07/18/16 07/18/16 07/18/16 05:06 06:52 11:52 WBC RBC Hgb Hct MCH RDW Plt Count Lymph % (Auto) [place] % (Auto) Lymph # [place] # Seg Neutrophils % Seg Neuts % (Manual) Lymphocytes % (Manual) Seg Neutrophils # Seg Neutrophils # Man Lymphocytes # (Manual) D-Dimer POC ABG pH POC ABG pCO2 POC ABG pO2 Sodium Potassium Chloride 97.7 L Carbon Dioxide BUN 51 H Creatinine 2.8 H Glucose 252 H POC Glucose 289 H 242 H Calcium 6.4 L Phosphorus Albumin TSH Urine WBC (Auto) Urine Creatinine 07/18/16 07/18/16 07/19/16 16:36 21:34 05:50 WBC RBC Hgb Hct MCH RDW Plt Count Lymph % (Auto) [place] % (Auto) Lymph # [place] # Seg Neutrophils % Seg Neuts % (Manual) Lymphocytes % (Manual) Seg Neutrophils # Seg Neutrophils # Man Lymphocytes # (Manual) D-Dimer POC ABG pH POC ABG pCO2 POC ABG pO2 Sodium Potassium Chloride Carbon Dioxide BUN Creatinine Glucose POC Glucose 221 H 210 H 273 H Calcium Phosphorus Albumin TSH Urine WBC (Auto) Urine Creatinine 07/19/16 07/19/16 07/19/16 07:09 17:06 21:56 WBC RBC Hgb Hct MCH RDW Plt Count Lymph % (Auto) [place] % (Auto) Lymph # [place] # Seg Neutrophils % Seg Neuts % (Manual) Lymphocytes % (Manual) Seg Neutrophils # Seg Neutrophils # Man Lymphocytes # (Manual) D-Dimer POC ABG pH POC ABG pCO2 POC ABG pO2 Sodium Potassium Chloride 96.2 L Carbon Dioxide BUN 81 H Creatinine 4.9 H D Glucose 260 H POC Glucose 143 H 148 H Calcium 6.0 L Phosphorus Albumin TSH Urine WBC (Auto) Urine Creatinine 07/20/16 07/20/16 07/20/16 05:21 06:29 11:01 WBC RBC Hgb Hct MCH RDW Plt Count Lymph % (Auto) [place] % (Auto) Lymph # [place] # Seg Neutrophils % Seg Neuts % (Manual) Lymphocytes % (Manual) Seg Neutrophils # Seg Neutrophils # Man Lymphocytes # (Manual) D-Dimer POC ABG pH POC ABG pCO2 POC ABG pO2 Sodium 136 L Potassium 3.4 L Chloride 94.4 L Carbon Dioxide BUN 43 H Creatinine 3.5 H Glucose 263 H POC Glucose 299 H 281 H Calcium 6.5 L Phosphorus Albumin TSH Urine WBC (Auto) Urine Creatinine 07/20/16 17:07 WBC RBC Hgb Hct MCH RDW Plt Count Lymph % (Auto) [place] % (Auto) Lymph # [place] # Seg Neutrophils % Seg Neuts % (Manual) Lymphocytes % (Manual) Seg Neutrophils # Seg Neutrophils # Man Lymphocytes # (Manual) D-Dimer POC ABG pH POC ABG pCO2 POC ABG pO2 Sodium Potassium Chloride Carbon Dioxide BUN Creatinine Glucose POC Glucose 253 H Calcium Phosphorus Albumin TSH Urine WBC (Auto) Urine Creatinine
[2016-07-21] MEDS: APRESOLINE FEEDTUBE SCH ×3 (05:56→23:05)
[2016-07-21] MEDS: HEPARIN SUB-Q SCH ×3 (06:00→22:22)
[2016-07-21] MEDS: SYNTHROID PO SCH (06:01)
[2016-07-21] MEDS: NOVOLOG SUB-Q SCH ×4 (07:19→22:58)
--- NOTE | 2016-07-21 07:52 | Progress Note ---
Assessment and Plan - Patient Problems (1) Acute respiratory failure Current Visit: Yes Status: Resolved Plan to address problem: supportive care, supplemental oxygen, nebs, aspiration precautions. (2) Dysphagia Current Visit: Yes Status: Acute Plan to address problem: GI consulted, Pending PEG placement (3) Encephalopathy acute Current Visit: Yes Status: Chronic Plan to address problem: Metabolic: continue supportive care. (4) Acute UTI Current Visit: No Status: Acute Plan to address problem: Iv abx, supportive care (5) Bipolar disorder Current Visit: No Status: Acute Qualifiers: Active/Remission status: remission status unspecified Most recent bipolar episode type: most recent episode unspecified type Plan to address problem: psych consulted, (6) DVT prophylaxis Current Visit: No Status: Acute History Interval history: Pt lying in bed, nonverbal, no reported nursing events. Case management consulted, D/C planning s/p peg placement. No improvement overnight. Hospitalist Physical - Constitutional Vitals: Temp Pulse Resp BP Pulse Ox 98.6 F 84 18 100/54 95 07/21/16 00:00 07/21/16 00:00 07/21/16 00:00 07/21/16 00:00 07/21/16 00:00 General appearance: Present: no acute distress, obese - EENT Eyes: Present: PERRL ENT: hearing intact - Neck Neck: Present: supple - Respiratory Respiratory: bilateral: CTA - Cardiovascular Rhythm: regular Heart Sounds: Present: S1 & S2 - Extremities Extremities: no ischemia Extremity abnormal: edema Peripheral Pulses: within normal limits - Abdominal General gastrointestinal: soft, non-tender, non-distended - Integumentary Integumentary: Present: clear, dry - Psychiatric Psychiatric: no intact judgment & insight, no memory intact, no cooperative - Neurologic Neurologic: no gait normal Results - Labs CBC & Chem 7: 07/18/16 05:06 07/20/16 05:21 Labs: Laboratory Last Values WBC 8.6 K/mm3 (4.5-11.0) 07/18/16 05:06 RBC 3.25 M/mm3 (3.65-5.03) L 07/18/16 05:06 Hgb 8.8 gm/dl (10.1-14.3) L 07/18/16 05:06 Hct 27.2 % (30.3-42.9) L 07/18/16 05:06 MCV 84 fl (79-97) 07/18/16 05:06 MCH 27 pg (28-32) L 07/18/16 05:06 MCHC 33 % (30-34) 07/18/16 05:06 RDW 17.0 % (13.2-15.2) H 07/18/16 05:06 Plt Count 175 K/mm3 (140-440) 07/18/16 05:06 Lymph % (Auto) 4.2 % (13.4-35.0) L 07/16/16 09:54 [place] % (Auto) 6.1 % (0.0-7.3) 07/16/16 09:54 Eos % (Auto) 0.0 % (0.0-4.3) 07/16/16 09:54 Baso % (Auto) 0.1 % (0.0-1.8) 07/16/16 09:54 Lymph # 0.3 K/mm3 (1.2-5.4) L 07/16/16 09:54 [place] # 0.5 K/mm3 (0.0-0.8) 07/16/16 09:54 Eos # 0.0 K/mm3 (0.0-0.4) 07/16/16 09:54 Baso # 0.0 K/mm3 (0.0-0.1) 07/16/16 09:54 Add Manual Diff Complete 07/18/16 05:06 Total Counted 100 07/18/16 05:06 Seg Neutrophils % Customer Strategy Manager 07/18/16 05:06 Seg Neuts % (Manual) 80.0 % (40.0-70.0) H 07/18/16 05:06 Band Neutrophils % 4.0 % 07/18/16 05:06 Lymphocytes % (Manual) 10.0 % (13.4-35.0) L 07/18/16 05:06 Reactive Lymphs % (Man) 0 % 07/18/16 05:06 Monocytes % (Manual) 6.0 % (0.0-7.3) 07/18/16 05:06 Eosinophils % (Manual) 0 % (0.0-4.3) 07/17/16 06:52 Basophils % (Manual) 0 % (0.0-1.8) 07/17/16 06:52 Metamyelocytes % 0 % 07/18/16 05:06 Myelocytes % 0 % 07/18/16 05:06 Promyelocytes % 0 % 07/18/16 05:06 Blast Cells % 0 % 07/18/16 05:06 Nucleated RBC % Not Reportable 07/18/16 05:06 Seg Neutrophils # 7.5 K/mm3 (1.8-7.7) 07/16/16 09:54 Seg Neutrophils # Man 6.9 K/mm3 (1.8-7.7) 07/18/16 05:06 Band Neutrophils # 0.3 K/mm3 07/18/16 05:06 Lymphocytes # (Manual) 0.9 K/mm3 (1.2-5.4) L 07/18/16 05:06 Abs React Lymphs (Man) 0.0 K/mm3 07/18/16 05:06 Monocytes # (Manual) 0.5 K/mm3 (0.0-0.8) 07/18/16 05:06 Eosinophils # (Manual) 0.0 K/mm3 (0.0-0.4) 07/18/16 05:06 Basophils # (Manual) 0.0 K/mm3 (0.0-0.1) 07/18/16 05:06 Metamyelocytes # 0.0 K/mm3 07/18/16 05:06 Myelocytes # 0.0 K/mm3 07/18/16 05:06 Promyelocytes # 0.0 K/mm3 07/18/16 05:06 Blast Cells # 0.0 K/mm3 07/18/16 05:06 WBC Morphology Not Reportable 07/18/16 05:06 Hypersegmented Neuts Not Reportable 07/18/16 05:06 Hyposegmented Neuts Not Reportable 07/18/16 05:06 Hypogranular Neuts Not Reportable 07/18/16 05:06 Smudge Cells Not Reportable 07/18/16 05:06 Toxic Granulation Not Reportable 07/18/16 05:06 Toxic Vacuolation Not Reportable 07/18/16 05:06 Dohle Bodies Not Reportable 07/18/16 05:06 Pelger-Huet Anomaly Not Reportable 07/18/16 05:06 Shagu[place]a Rods Not Reportable 07/18/16 05:06 Platelet Estimate Not Reportable 07/18/16 05:06 Clumped Platelets Not Reportable 07/18/16 05:06 Plt Clumps, EDTA Not Reportable 07/18/16 05:06 Large Platelets Not Reportable 07/18/16 05:06 Giant Platelets Not Reportable 07/18/16 05:06 Platelet Satelliting Not Reportable 07/18/16 05:06 Plt Morphology Comment Not Reportable 07/18/16 05:06 RBC Morphology Not Reportable 07/18/16 05:06 Dimorphic RBCs Not Reportable 07/18/16 05:06 Polychromasia Not Reportable 07/18/16 05:06 Hypochromasia Not Reportable 07/18/16 05:06 Poikilocytosis Not Reportable 07/18/16 05:06 Anisocytosis 1+ 07/18/16 05:06 Microcytosis Not Reportable 07/18/16 05:06 Macrocytosis Not Reportable 07/18/16 05:06 Spherocytes Not Reportable 07/18/16 05:06 Pappenheimer Bodies Not Reportable 07/18/16 05:06 Sickle Cells Not Reportable 07/18/16 05:06 Target Cells Not Reportable 07/18/16 05:06 Tear Drop Cells Not Reportable 07/18/16 05:06 Ovalocytes Not Reportable 07/18/16 05:06 Helmet Cells Not Reportable 07/18/16 05:06 Pr[place] Bodies Not Reportable 07/18/16 05:06 [place] Rings Not Reportable 07/18/16 05:06 [place] Cells Not Reportable 07/18/16 05:06 Bite Cells Not Reportable 07/18/16 05:06 Crenated Cell Not Reportable 07/18/16 05:06 Elliptocytes Few 07/18/16 05:06 Acanthocytes (Spur) Not Reportable 07/18/16 05:06 Rouleaux Not Reportable 07/18/16 05:06 Hemoglobin C Crystals Not Reportable 07/18/16 05:06 Schistocytes Not Reportable 07/18/16 05:06 Malaria parasites Not Reportable 07/18/16 05:06 Kaushik Bodies Not Reportable 07/18/16 05:06 Hem Pathologist Commnt No 07/18/16 05:06 PT 14.1 Sec. (12.2-14.9) 07/18/16 05:06 INR 1.10 (0.87-1.13) 07/18/16 05:06 APTT 34.8 Sec. (24.2-36.6) 07/18/16 05:06 D-Dimer 751.80 ng/mlDDU (0-234) H 07/11/16 12:22 POC ABG pH 7.529 (7.35-7.45) H 07/13/16 14:15 POC ABG pCO2 26.8 (35-45) L 07/13/16 14:15 POC ABG pO2 70 (80-105) L 07/13/16 14:15 POC ABG HCO3 22.3 07/13/16 14:15 POC ABG Total CO2 23 07/13/16 14:15 POC ABG O2 Sat 96 07/13/16 14:15 POC ABG Base Excess 0 07/13/16 14:15 FiO2 21 % 07/13/16 14:15 Sodium 136 mmol/L (137-145) L 07/20/16 05:21 Potassium 3.4 mmol/L (3.6-5.0) L 07/20/16 05:21 Chloride 94.4 mmol/L (98-107) L 07/20/16 05:21 Carbon Dioxide 26 mmol/L (22-30) 07/20/16 05:21 Anion Gap 19 mmol/L 07/20/16 05:21 BUN 43 mg/dL (7-17) H 07/20/16 05:21 Creatinine 3.5 mg/dL (0.7-1.2) H 07/20/16 05:21 Estimated GFR 16 ml/min 07/20/16 05:21 BUN/Creatinine Ratio 12.28 % 07/20/16 05:21 Glucose 263 mg/dL (65-100) H 07/20/16 05:21 POC Glucose 346 (70-105) H 07/21/16 06:24 Hemoglobin A1c 5.6 % (4-6) 07/15/16 04:56 Lactic Acid 0.8 mmol/L (0.7-2.0) 07/19/16 00:37 Calcium 6.5 mg/dL (8.4-10.2) L 07/20/16 05:21 Phosphorus 5.2 mg/dL (2.5-4.5) H 07/17/16 06:52 Magnesium 1.9 mg/dL (1.7-2.3) 07/17/16 06:52 Total Bilirubin < 0.2 mg/dL (0.1-1.2) 07/10/16 06:43 AST 17 units/L (5-40) 07/10/16 06:43 ALT 9 units/L (7-56) 07/10/16 06:43 Alkaline Phosphatase 62 units/L (35-129) 07/10/16 06:43 Total Creatine Kinase 131 units/L (30-135) 07/11/16 12:22 CK-MB (CK-2) 2.0 ng/mL (0.0-4.0) 07/11/16 12:22 CK-MB (CK-2) Rel Index 1.5 (0-4) 07/11/16 12:22 Troponin T < 0.010 ng/mL (0.00-0.029) 07/11/16 12:22 Total Protein 6.7 g/dL (6.3-8.2) 07/10/16 06:43 Albumin 3.5 g/dL (3.9-5) L 07/10/16 06:43 Albumin/Globulin Ratio 1.1 % 07/10/16 06:43 TSH 8.090 mlU/mL (0.270-4.200) H 07/05/16 05:08 Urine Color Straw (Yellow) 07/06/16 01:18 Urine Turbidity Clear (Clear) 07/06/16 01:18 Urine pH 6.0 (5.0-7.0) 07/06/16 01:18 Ur Specific [place] 1.003 (1.003-1.030) 07/06/16 01:18 Urine Protein <15 mg/dl mg/dL (Negative) 07/06/16 01:18 Urine Glucose (UA) Neg mg/dL (Negative) 07/06/16 01:18 Urine Ketones Neg mg/dL (Negative) 07/06/16 01:18 Urine Blood Neg (Negative) 07/06/16 01:18 Urine Nitrite Neg (Negative) 07/06/16 01:18 Urine Bilirubin Neg (Negative) 07/06/16 01:18 Urine Urobilinogen < 2.0 mg/dL (<2.0) 07/06/16 01:18 Ur Leukocyte Esterase Mod (Negative) 07/06/16 01:18 Urine WBC (Auto) 7.0 /HPF (0.0-6.0) H 07/06/16 01:18 Urine RBC (Auto) 3.0 /HPF (0.0-6.0) 07/06/16 01:18 U Epithel Cells (Auto) 1.0 /HPF (0-13.0) 06/30/16 11:34 Urine Bacteria (Auto) 1+ /HPF (Negative) 06/30/16 11:34 Urine Eosinophils None seen (None Seen) 07/06/16 01:18 Urine Creatinine 36.6 mg/dL (0.1-20.0) H 07/06/16 01:18 Urine Microalbumin 6.5 mg/dL (0.1-34.0) 07/06/16 01:18 Microalb/Creat Ratio 177.5 ug/mg 07/06/16 01:18 Urine Sodium 28 mEq/L 07/06/16 01:18 Urine Opiates Screen Presumptive negative 06/30/16 11:34 Urine Methadone Screen Presumptive negative 06/30/16 11:34 Acetaminophen < 15.0 ug/mL (10.0-30.0) 06/30/16 12:01 Ur Barbiturates Screen Presumptive negative 06/30/16 11:34 Ur Phencyclidine Scrn Presumptive negative 06/30/16 11:34 Ur Amphetamines Screen Presumptive negative 06/30/16 11:34 U Benzodiazepines Scrn Presumptive negative 06/30/16 11:34 Urine Cocaine Screen Presumptive negative 06/30/16 11:34 U Marijuana (THC) Screen Presumptive negative 06/30/16 11:34 Drugs of Abuse Note Disclamer 06/30/16 11:34 Plasma/Serum Alcohol < 0.01 gm% (0-0.07) 06/30/16 12:01 Hepatitis A IgM Ab -1 (NonReactive) 07/16/16 19:08 Hep Bs Antigen Non-reactive (Negative) 07/16/16 19:08 Hep B Core IgM Ab Non-reactive (NonReactive) 07/16/16 19:08 Hepatitis C Antibody Non-reactive (NonReactive) 07/16/16 19:08
[2016-07-21 08:00] LABS: BUN/Creatinine Ratio 14.79; Calcium 6.2 mg/dL (8.4-10.2); Chloride 90.7 mmol/L (98-107); Potassium 3.6 mmol/L (3.6-5.0)
[2016-07-21] MEDS: NORMODYNE PO SCH ×3 (08:00→20:50)
--- NOTE | 2016-07-21 10:10 | Progress Note ---
Subjective - Reason for Consult Consult date: 07/21/16 Reason for consult: Bipolar/Encephalopathy Requesting physician: JOSIAS MICHEL - Chief Complaint Chief complaint: sleepy this morning (10:15am), unable to wake her fully for assessment, about to be taken to dialysis Mental Status Exam - Vital signs Last Vital Signs Temp 98.3 F 07/21/16 08:20 Pulse 73 07/21/16 08:20 Resp 12 07/21/16 08:20 BP 115/56 07/21/16 08:20 Pulse Ox 98 07/21/16 08:20 - Exam Narrative exam: Patient is asleep (10:15am). When awake she makes eye contact, can follow some simple commands, but is still nonverbal. Calm, cooperative, no agitation. Sleeps though the night. Motor activity: lethargic Level of consciousness: other (asleep) Sleep Symptoms: None Interaction: apathetic Assessment and Plan ASSESSMENT Encephalopathy, multifactoral s/p Acute hypoxic respiratory failure. Urinary tract infection. Treated. Acute on CKD stage IV-HD Bipolar Disorder Dementia 69yo F admitted with: UTI, HTN, need for NH placement, now s/p respiratory failure with NG tube Family informed staff they would not be able to care for her at home anymore as they were being evicted. - Patient Problems (1) Encephalopathy acute Current Visit: Yes Status: Chronic Plan to address problem: RECOMMEND: staffed with supervising psych MD, Dr. Lluvia Hernandez 1. Consider reducing Zyprexa to 5mg po HS and monitor 2. Use Zyprexa Zydis 5mg SL Q12H PRN breakthrough agitation/psychosis 3. NH placement 4. Psych Team has completed the allotted 8 visits for this patient. If any further input is required please contact our office at [phone].
[2016-07-21] MEDS ORDERED: PNEUMOVAX 23 IM ONE (12:00)
[2016-07-21] MEDS: HEPARIN IV PRN (14:10)
[2016-07-21] MEDS: PEPCID PO SCH (15:41)
[2016-07-21] MEDS: NEURONTIN PO SCH ×2 (15:42→22:59)
[2016-07-21] MEDS: NACL 0.9% 1000 ML 1,000 ML IV SCH (16:00)
--- NOTE | 2016-07-21 21:07 | Progress Note ---
Assessment and Plan Patient sleeping at this time., Sleeping on 2 litres O2. O2 satuaration 97% on 2 litres O2.No acute respiratory distress. - Patient Problems (1) Angioedema Current Visit: Yes Status: Acute Plan to address problem: Improved. (2) GABRIELA (acute kidney injury) Current Visit: Yes Status: Acute Plan to address problem: Patient is on dialysis. Mangement as per nephrology. (3) Encephalopathy acute Current Visit: Yes Status: Chronic Plan to address problem: Management as per primary care. (4) Hypertension Current Visit: Yes Status: Acute Plan to address problem: Management as per primary care. (5) Diabetes Current Visit: No Status: Acute Qualifiers: Diabetes mellitus type: type 2 Diabetes mellitus complication status: with kidney complications Diabetes mellitus complication detail: with chronic kidney disease Plan to address problem: Management as per primary care. (6) Bipolar disorder Current Visit: No Status: Acute Qualifiers: Active/Remission status: remission status unspecified Most recent bipolar episode type: most recent episode unspecified type Plan to address problem: Management as per primary care and psychiatry. Subjective Date of service: 07/21/16 Principal diagnosis: Acute Respiratory Failure; Angioedema Interval history: . Patient sleeping at this time., Patient sleeping on 2 litres O2. O2 satuaration 97% on 2 litres O2.No acute respiratory distress. Objective Vital Signs - 12hr 07/21/16 07/21/16 07/21/16 10:00 11:10 11:20 Temperature 98.3 F Pulse Rate 71 70 Pulse Rate [ Right Radial] Respiratory 20 Rate Blood Pressure 126/62 120/60 Blood Pressure [Right Arm] O2 Sat by Pulse 100 Oximetry 07/21/16 07/21/16 07/21/16 11:30 11:45 12:00 Temperature Pulse Rate 74 71 75 Pulse Rate [ Right Radial] Respiratory Rate Blood Pressure 118/62 113/87 113/57 Blood Pressure [Right Arm] O2 Sat by Pulse Oximetry 07/21/16 07/21/16 07/21/16 12:15 12:30 12:45 Temperature Pulse Rate 82 82 80 Pulse Rate [ Right Radial] Respiratory Rate Blood Pressure 112/63 160/81 130/80 Blood Pressure [Right Arm] O2 Sat by Pulse Oximetry 07/21/16 07/21/16 07/21/16 13:00 13:15 13:20 Temperature Pulse Rate 83 82 79 Pulse Rate [ Right Radial] Respiratory Rate Blood Pressure 109/58 99/58 111/45 Blood Pressure [Right Arm] O2 Sat by Pulse Oximetry 07/21/16 07/21/16 07/21/16 13:30 13:45 14:00 Temperature Pulse Rate 82 82 83 Pulse Rate [ Right Radial] Respiratory Rate Blood Pressure 102/57 114/59 119/53 Blood Pressure [Right Arm] O2 Sat by Pulse Oximetry 07/21/16 07/21/16 07/21/16 14:10 14:15 15:50 Temperature 98.4 F Pulse Rate 80 80 78 Pulse Rate [ Right Radial] Respiratory 20 Rate Blood Pressure 110/56 110/60 115/59 Blood Pressure [Right Arm] O2 Sat by Pulse Oximetry 07/21/16 15:57 Temperature 99.1 F Pulse Rate Pulse Rate [ 78 Right Radial] Respiratory 18 Rate Blood Pressure Blood Pressure 115/59 [Right Arm] O2 Sat by Pulse 97 Oximetry Constitutional: no acute distress, lethargic Eyes: non-icteric ENT: oropharynx moist Neck: supple, no lymphadenopathy Effort: normal Ascultation: Bilateral: diminished breath sounds Cardiovascular: regular rate and rhythm Gastrointestinal: normoactive bowel sounds, soft, non-tender, non-distended Integumentary: normal Extremities: no cyanosis, no edema, pulses normal, no ischemia or petechiae Neurologic: non-focal exam (grossly), pupils equal and round, CN II-XII normal Psychiatric: anxious CBC and BMP: 07/18/16 05:06 07/21/16 07:25 ABG, PT/INR, D-dimer: ABG POC ABG pH 7.529 (7.35-7.45) H 07/13/16 14:15 POC ABG pCO2 26.8 (35-45) L 07/13/16 14:15 POC ABG pO2 70 (80-105) L 07/13/16 14:15 POC ABG HCO3 22.3 07/13/16 14:15 POC ABG Total CO2 23 07/13/16 14:15 POC ABG O2 Sat 96 07/13/16 14:15 PT/INR, D-dimer PT 14.1 Sec. (12.2-14.9) 07/18/16 05:06 INR 1.10 (0.87-1.13) 07/18/16 05:06 D-Dimer 751.80 ng/mlDDU (0-234) H 07/11/16 12:22 Abnormal lab findings: Abnormal Labs 07/03/16 07/03/16 07/04/16 14:34 14:34 06:21 WBC 3.9 L RBC 3.16 L 3.04 L Hgb 8.5 L 8.0 L Hct 26.8 L 25.6 L MCH 27 L 26 L RDW 16.5 H 16.2 H Plt Count Lymph % (Auto) Mayes % (Auto) 10.7 H 10.7 H Lymph # 1.0 L Mayes # Seg Neutrophils % Seg Neuts % (Manual) Lymphocytes % (Manual) Seg Neutrophils # Seg Neutrophils # Man Lymphocytes # (Manual) D-Dimer POC ABG pH POC ABG pCO2 POC ABG pO2 Sodium Potassium Chloride 107.6 H Carbon Dioxide BUN 27 H Creatinine 2.6 H Glucose POC Glucose Calcium 8.0 L Phosphorus Albumin TSH Urine WBC (Auto) Urine Creatinine 07/04/16 07/04/16 07/04/16 06:21 11:30 16:33 WBC RBC Hgb Hct MCH RDW Plt Count Lymph % (Auto) Mayes % (Auto) Lymph # Mayes # Seg Neutrophils % Seg Neuts % (Manual) Lymphocytes % (Manual) Seg Neutrophils # Seg Neutrophils # Man Lymphocytes # (Manual) D-Dimer POC ABG pH POC ABG pCO2 POC ABG pO2 Sodium Potassium Chloride 107.4 H Carbon Dioxide 21 L BUN 27 H Creatinine 2.7 H Glucose POC Glucose 110 H 106 H Calcium 7.8 L Phosphorus Albumin TSH Urine WBC (Auto) Urine Creatinine 07/05/16 07/05/16 07/05/16 05:08 05:08 05:08 WBC 4.0 L RBC 2.87 L Hgb 7.7 L Hct 24.2 L MCH 27 L RDW 16.0 H Plt Count Lymph % (Auto) Mayes % (Auto) Lymph # Mayes # Seg Neutrophils % Seg Neuts % (Manual) Lymphocytes % (Manual) Seg Neutrophils # Seg Neutrophils # Man Lymphocytes # (Manual) D-Dimer POC ABG pH POC ABG pCO2 POC ABG pO2 Sodium Potassium Chloride Carbon Dioxide 21 L BUN 32 H Creatinine 3.7 H Glucose POC Glucose Calcium 7.8 L Phosphorus Albumin TSH 8.090 H Urine WBC (Auto) Urine Creatinine 07/05/16 07/06/16 07/06/16 11:45 01:18 01:18 WBC RBC Hgb 8.3 L Hct 25.9 L MCH RDW Plt Count Lymph % (Auto) Mayes % (Auto) Lymph # Mayes # Seg Neutrophils % Seg Neuts % (Manual) Lymphocytes % (Manual) Seg Neutrophils # Seg Neutrophils # Man Lymphocytes # (Manual) D-Dimer POC ABG pH POC ABG pCO2 POC ABG pO2 Sodium Potassium Chloride Carbon Dioxide BUN Creatinine Glucose POC Glucose Calcium Phosphorus Albumin TSH Urine WBC (Auto) 7.0 H Urine Creatinine 36.6 H 07/06/16 07/06/16 07/06/16 05:55 05:55 16:07 WBC 3.0 L RBC 2.79 L Hgb 7.5 L Hct 23.5 L MCH 27 L RDW 16.5 H Plt Count Lymph % (Auto) Mayes % (Auto) Lymph # Mayes # Seg Neutrophils % Seg Neuts % (Manual) Lymphocytes % (Manual) Seg Neutrophils # Seg Neutrophils # Man Lymphocytes # (Manual) D-Dimer POC ABG pH POC ABG pCO2 POC ABG pO2 Sodium Potassium Chloride 109.3 H Carbon Dioxide 20 L BUN 32 H Creatinine 3.4 H Glucose POC Glucose 117 H Calcium 7.5 L Phosphorus Albumin TSH Urine WBC (Auto) Urine Creatinine 07/07/16 07/07/16 07/08/16 06:19 16:13 00:09 WBC RBC Hgb Hct MCH RDW Plt Count Lymph % (Auto) Mayes % (Auto) Lymph # Mayes # Seg Neutrophils % Seg Neuts % (Manual) Lymphocytes % (Manual) Seg Neutrophils # Seg Neutrophils # Man Lymphocytes # (Manual) D-Dimer POC ABG pH POC ABG pCO2 POC ABG pO2 Sodium Potassium Chloride 111.1 H Carbon Dioxide 20 L BUN 31 H Creatinine 3.1 H Glucose POC Glucose 108 H 134 H Calcium 8.0 L Phosphorus Albumin TSH Urine WBC (Auto) Urine Creatinine 07/08/16 07/08/16 07/08/16 11:39 16:31 21:22 WBC RBC Hgb Hct MCH RDW Plt Count Lymph % (Auto) Mayes % (Auto) Lymph # Mayes # Seg Neutrophils % Seg Neuts % (Manual) Lymphocytes % (Manual) Seg Neutrophils # Seg Neutrophils # Man Lymphocytes # (Manual) D-Dimer POC ABG pH POC ABG pCO2 POC ABG pO2 Sodium Potassium Chloride Carbon Dioxide BUN Creatinine Glucose POC Glucose 119 H 130 H 152 H Calcium Phosphorus Albumin TSH Urine WBC (Auto) Urine Creatinine 07/09/16 07/09/16 07/09/16 05:52 05:52 06:02 WBC RBC 3.55 L Hgb 9.4 L Hct MCH 27 L RDW 17.1 H Plt Count Lymph % (Auto) Mayes % (Auto) Lymph # Mayes # Seg Neutrophils % Seg Neuts % (Manual) Lymphocytes % (Manual) Seg Neutrophils # Seg Neutrophils # Man Lymphocytes # (Manual) D-Dimer POC ABG pH POC ABG pCO2 POC ABG pO2 Sodium 147 H Potassium 5.4 H Chloride 112.8 H Carbon Dioxide 21 L BUN 30 H Creatinine 2.5 H Glucose 21 L* POC Glucose < 40 L Calcium Phosphorus Albumin TSH Urine WBC (Auto) Urine Creatinine 07/09/16 07/09/16 07/10/16 11:31 16:50 05:23 WBC RBC Hgb Hct MCH RDW Plt Count Lymph % (Auto) Mayes % (Auto) Lymph # Mayes # Seg Neutrophils % Seg Neuts % (Manual) Lymphocytes % (Manual) Seg Neutrophils # Seg Neutrophils # Man Lymphocytes # (Manual) D-Dimer POC ABG pH POC ABG pCO2 POC ABG pO2 Sodium Potassium Chloride Carbon Dioxide BUN Creatinine Glucose POC Glucose 114 H 149 H < 40 L Calcium Phosphorus Albumin TSH Urine WBC (Auto) Urine Creatinine 07/10/16 07/10/16 07/10/16 06:03 06:43 06:43 WBC RBC 2.90 L Hgb 7.7 L Hct 25.0 L MCH 27 L RDW 17.0 H Plt Count Lymph % (Auto) Mayes % (Auto) 10.4 H Lymph # 1.1 L Mayes # Seg Neutrophils % Seg Neuts % (Manual) Lymphocytes % (Manual) Seg Neutrophils # Seg Neutrophils # Man Lymphocytes # (Manual) D-Dimer POC ABG pH POC ABG pCO2 POC ABG pO2 Sodium 148 H Potassium 5.1 H Chloride 111.7 H Carbon Dioxide 20 L BUN 31 H Creatinine 2.4 H Glucose POC Glucose 211 H Calcium 8.0 L Phosphorus Albumin 3.5 L TSH Urine WBC (Auto) Urine Creatinine 07/10/16 07/11/16 07/11/16 14:55 05:37 05:47 WBC RBC Hgb 7.9 L Hct 25.5 L MCH RDW Plt Count Lymph % (Auto) Mayes % (Auto) Lymph # Mayes # Seg Neutrophils % Seg Neuts % (Manual) Lymphocytes % (Manual) Seg Neutrophils # Seg Neutrophils # Man Lymphocytes # (Manual) D-Dimer POC ABG pH POC ABG pCO2 POC ABG pO2 Sodium Potassium Chloride Carbon Dioxide BUN Creatinine Glucose POC Glucose < 40 L > 500 H Calcium Phosphorus Albumin TSH Urine WBC (Auto) Urine Creatinine 07/11/16 07/11/16 07/11/16 05:56 07:42 07:48 WBC RBC Hgb Hct MCH RDW Plt Count Lymph % (Auto) Mayes % (Auto) Lymph # Mayes # Seg Neutrophils % Seg Neuts % (Manual) Lymphocytes % (Manual) Seg Neutrophils # Seg Neutrophils # Man Lymphocytes # (Manual) D-Dimer POC ABG pH POC ABG pCO2 POC ABG pO2 Sodium Potassium Chloride Carbon Dioxide BUN Creatinine Glucose POC Glucose 262 H 56 L 54 L Calcium Phosphorus Albumin TSH Urine WBC (Auto) Urine Creatinine 07/11/16 07/11/16 07/11/16 08:34 08:50 09:53 WBC RBC Hgb Hct MCH RDW Plt Count Lymph % (Auto) Mayes % (Auto) Lymph # Mayes # Seg Neutrophils % Seg Neuts % (Manual) Lymphocytes % (Manual) Seg Neutrophils # Seg Neutrophils # Man Lymphocytes # (Manual) D-Dimer POC ABG pH POC ABG pCO2 31.1 L POC ABG pO2 108 H Sodium Potassium Chloride Carbon Dioxide BUN Creatinine Glucose POC Glucose 110 H 68 L Calcium Phosphorus Albumin TSH Urine WBC (Auto) Urine Creatinine 07/11/16 07/11/16 07/11/16 11:48 12:22 12:22 WBC 11.6 H RBC Hgb Hct MCH 27 L RDW 17.2 H Plt Count Lymph % (Auto) Mayes % (Auto) Lymph # Mayes # Seg Neutrophils % Seg Neuts % (Manual) 91.0 H Lymphocytes % (Manual) 5.0 L Seg Neutrophils # 10.8 H Seg Neutrophils # Man 10.6 H Lymphocytes # (Manual) 0.6 L D-Dimer 751.80 H POC ABG pH POC ABG pCO2 POC ABG pO2 Sodium Potassium Chloride Carbon Dioxide BUN Creatinine Glucose POC Glucose 118 H Calcium Phosphorus Albumin TSH Urine WBC (Auto) Urine Creatinine 07/11/16 07/11/16 07/11/16 12:22 12:29 15:23 WBC RBC Hgb Hct MCH RDW Plt Count Lymph % (Auto) Mayes % (Auto) Lymph # Mayes # Seg Neutrophils % Seg Neuts % (Manual) Lymphocytes % (Manual) Seg Neutrophils # Seg Neutrophils # Man Lymphocytes # (Manual) D-Dimer POC ABG pH POC ABG pCO2 28.4 L POC ABG pO2 Sodium Potassium 6.1 H* Chloride 109.4 H Carbon Dioxide 18 L BUN 30 H Creatinine 2.1 H Glucose 126 H POC Glucose 204 H Calcium Phosphorus Albumin TSH Urine WBC (Auto) Urine Creatinine 07/11/16 07/11/16 07/11/16 17:27 17:55 21:42 WBC RBC Hgb Hct MCH RDW Plt Count Lymph % (Auto) Mayes % (Auto) Lymph # Mayes # Seg Neutrophils % Seg Neuts % (Manual) Lymphocytes % (Manual) Seg Neutrophils # Seg Neutrophils # Man Lymphocytes # (Manual) D-Dimer POC ABG pH POC ABG pCO2 POC ABG pO2 Sodium 146 H Potassium 6.5 H* Chloride 109.7 H Carbon Dioxide 20 L BUN 32 H Creatinine 2.4 H Glucose 167 H POC Glucose 433 H 142 H Calcium Phosphorus Albumin TSH Urine WBC (Auto) Urine Creatinine 07/12/16 07/12/16 07/12/16 04:34 04:34 05:22 WBC 14.0 H RBC Hgb Hct MCH 27 L RDW 17.6 H Plt Count 113 L Lymph % (Auto) Mayes % (Auto) Lymph # Mayes # Seg Neutrophils % Seg Neuts % (Manual) 87.0 H Lymphocytes % (Manual) 11.0 L Seg Neutrophils # Seg Neutrophils # Man 12.2 H Lymphocytes # (Manual) D-Dimer POC ABG pH 7.452 H POC ABG pCO2 29.6 L POC ABG pO2 Sodium Potassium 6.8 H* Chloride 110.2 H Carbon Dioxide 16 L BUN 43 H Creatinine 2.9 H Glucose 113 H POC Glucose Calcium Phosphorus Albumin TSH Urine WBC (Auto) Urine Creatinine 07/12/16 07/12/16 07/12/16 13:24 17:28 21:11 WBC RBC Hgb Hct MCH RDW Plt Count Lymph % (Auto) Mayes % (Auto) Lymph # Mayes # Seg Neutrophils % Seg Neuts % (Manual) Lymphocytes % (Manual) Seg Neutrophils # Seg Neutrophils # Man Lymphocytes # (Manual) D-Dimer POC ABG pH POC ABG pCO2 POC ABG pO2 Sodium 150 H Potassium Chloride 108.9 H Carbon Dioxide 21 L BUN 52 H Creatinine 3.7 H Glucose 143 H POC Glucose 148 H 134 H Calcium 8.0 L Phosphorus Albumin TSH Urine WBC (Auto) Urine Creatinine 07/12/16 07/13/16 07/13/16 21:50 04:40 04:40 WBC 14.0 H RBC 3.50 L Hgb 9.3 L Hct 29.3 L MCH 27 L RDW 17.3 H Plt Count Lymph % (Auto) 4.9 L Mayes % (Auto) Lymph # 0.7 L Mayes # Seg Neutrophils % 90.0 H Seg Neuts % (Manual) 93.0 H Lymphocytes % (Manual) 5.0 L Seg Neutrophils # 12.6 H Seg Neutrophils # Man 13.0 H Lymphocytes # (Manual) 0.7 L D-Dimer POC ABG pH POC ABG pCO2 POC ABG pO2 Sodium 151 H Potassium Chloride 109.3 H Carbon Dioxide BUN 59 H Creatinine 4.0 H Glucose 63 L POC Glucose 156 H Calcium 7.7 L Phosphorus Albumin TSH Urine WBC (Auto) Urine Creatinine 07/13/16 07/13/16 07/13/16 06:10 06:40 08:03 WBC RBC Hgb Hct MCH RDW Plt Count Lymph % (Auto) Mayes % (Auto) Lymph # Mayes # Seg Neutrophils % Seg Neuts % (Manual) Lymphocytes % (Manual) Seg Neutrophils # Seg Neutrophils # Man Lymphocytes # (Manual) D-Dimer POC ABG pH POC ABG pCO2 POC ABG pO2 Sodium Potassium Chloride Carbon Dioxide BUN Creatinine Glucose POC Glucose 68 L 176 H 141 H Calcium Phosphorus Albumin TSH Urine WBC (Auto) Urine Creatinine 07/13/16 07/13/16 07/13/16 09:17 12:30 14:15 WBC RBC Hgb Hct MCH RDW Plt Count Lymph % (Auto) Mayes % (Auto) Lymph # Mayes # Seg Neutrophils % Seg Neuts % (Manual) Lymphocytes % (Manual) Seg Neutrophils # Seg Neutrophils # Man Lymphocytes # (Manual) D-Dimer POC ABG pH 7.475 H 7.529 H POC ABG pCO2 33.4 L 26.8 L POC ABG pO2 110 H 70 L Sodium Potassium Chloride Carbon Dioxide BUN Creatinine Glucose POC Glucose 177 H Calcium Phosphorus Albumin TSH Urine WBC (Auto) Urine Creatinine 07/13/16 07/13/16 07/13/16 15:28 17:57 22:10 WBC RBC Hgb Hct MCH RDW Plt Count Lymph % (Auto) Mayes % (Auto) Lymph # Mayes # Seg Neutrophils % Seg Neuts % (Manual) Lymphocytes % (Manual) Seg Neutrophils # Seg Neutrophils # Man Lymphocytes # (Manual) D-Dimer POC ABG pH POC ABG pCO2 POC ABG pO2 Sodium Potassium Chloride Carbon Dioxide BUN Creatinine Glucose POC Glucose 122 H 166 H 197 H Calcium Phosphorus Albumin TSH Urine WBC (Auto) Urine Creatinine 07/14/16 07/14/16 07/14/16 02:00 04:21 04:21 WBC RBC 3.01 L Hgb 8.1 L Hct 25.3 L MCH 27 L RDW 17.9 H Plt Count Lymph % (Auto) 6.1 L Mayes % (Auto) Lymph # 0.5 L Mayes # Seg Neutrophils % 89.9 H Seg Neuts % (Manual) Lymphocytes % (Manual) Seg Neutrophils # Seg Neutrophils # Man Lymphocytes # (Manual) D-Dimer POC ABG pH POC ABG pCO2 POC ABG pO2 Sodium 150 H Potassium Chloride 107.3 H Carbon Dioxide 21 L BUN 82 H Creatinine 4.8 H Glucose 176 H POC Glucose 166 H Calcium 6.8 L Phosphorus Albumin TSH Urine WBC (Auto) Urine Creatinine 07/14/16 07/14/16 07/14/16 05:32 09:42 22:32 WBC RBC Hgb Hct MCH RDW Plt Count Lymph % (Auto) Mayes % (Auto) Lymph # Mayes # Seg Neutrophils % Seg Neuts % (Manual) Lymphocytes % (Manual) Seg Neutrophils # Seg Neutrophils # Man Lymphocytes # (Manual) D-Dimer POC ABG pH POC ABG pCO2 POC ABG pO2 Sodium Potassium Chloride Carbon Dioxide BUN Creatinine Glucose POC Glucose 202 H 216 H 191 H Calcium Phosphorus Albumin TSH Urine WBC (Auto) Urine Creatinine 07/15/16 07/15/16 07/15/16 04:46 04:56 04:56 WBC RBC 3.04 L Hgb 8.2 L Hct 25.8 L MCH 27 L RDW 17.3 H Plt Count Lymph % (Auto) 4.2 L Mayes % (Auto) 11.8 H Lymph # 0.4 L Mayes # 1.1 H Seg Neutrophils % 83.9 H Seg Neuts % (Manual) Lymphocytes % (Manual) Seg Neutrophils # Seg Neutrophils # Man Lymphocytes # (Manual) D-Dimer POC ABG pH POC ABG pCO2 POC ABG pO2 Sodium 147 H Potassium 3.4 L Chloride Carbon Dioxide 20 L BUN 109 H Creatinine 5.2 H Glucose 242 H POC Glucose 275 H Calcium 6.3 L Phosphorus Albumin TSH Urine WBC (Auto) Urine Creatinine 07/15/16 07/15/16 07/15/16 11:32 16:52 20:41 WBC RBC Hgb Hct MCH RDW Plt Count Lymph % (Auto) Mayes % (Auto) Lymph # Mayes # Seg Neutrophils % Seg Neuts % (Manual) Lymphocytes % (Manual) Seg Neutrophils # Seg Neutrophils # Man Lymphocytes # (Manual) D-Dimer POC ABG pH POC ABG pCO2 POC ABG pO2 Sodium Potassium Chloride Carbon Dioxide BUN Creatinine Glucose POC Glucose 250 H 195 H 219 H Calcium Phosphorus Albumin TSH Urine WBC (Auto) Urine Creatinine 07/16/16 07/16/16 07/16/16 00:37 05:47 09:54 WBC RBC 3.20 L Hgb 8.6 L Hct 27.3 L MCH 27 L RDW 17.1 H Plt Count Lymph % (Auto) 4.2 L Mayes % (Auto) Lymph # 0.3 L Mayes # Seg Neutrophils % 89.6 H Seg Neuts % (Manual) Lymphocytes % (Manual) Seg Neutrophils # Seg Neutrophils # Man Lymphocytes # (Manual) D-Dimer POC ABG pH POC ABG pCO2 POC ABG pO2 Sodium Potassium Chloride Carbon Dioxide BUN Creatinine Glucose POC Glucose 257 H 223 H Calcium Phosphorus Albumin TSH Urine WBC (Auto) Urine Creatinine 07/16/16 07/16/16 07/16/16 09:54 11:54 17:48 WBC RBC Hgb Hct MCH RDW Plt Count Lymph % (Auto) Mayes % (Auto) Lymph # Mayes # Seg Neutrophils % Seg Neuts % (Manual) Lymphocytes % (Manual) Seg Neutrophils # Seg Neutrophils # Man Lymphocytes # (Manual) D-Dimer POC ABG pH POC ABG pCO2 POC ABG pO2 Sodium 148 H Potassium Chloride Carbon Dioxide 21 L BUN 146 H Creatinine 6.0 H Glucose 249 H POC Glucose 294 H 195 H Calcium 6.4 L Phosphorus Albumin TSH Urine WBC (Auto) Urine Creatinine 07/16/16 07/16/16 07/17/16 21:54 23:53 05:53 WBC RBC Hgb Hct MCH RDW Plt Count Lymph % (Auto) Mayes % (Auto) Lymph # Mayes # Seg Neutrophils % Seg Neuts % (Manual) Lymphocytes % (Manual) Seg Neutrophils # Seg Neutrophils # Man Lymphocytes # (Manual) D-Dimer POC ABG pH POC ABG pCO2 POC ABG pO2 Sodium Potassium Chloride Carbon Dioxide BUN Creatinine Glucose POC Glucose 161 H 171 H 208 H Calcium Phosphorus Albumin TSH Urine WBC (Auto) Urine Creatinine 07/17/16 07/17/16 07/17/16 06:52 06:52 11:28 WBC RBC 3.17 L Hgb 8.6 L Hct 26.4 L MCH 27 L RDW 17.2 H Plt Count Lymph % (Auto) Mayes % (Auto) Lymph # Mayes # Seg Neutrophils % Seg Neuts % (Manual) 90.0 H Lymphocytes % (Manual) 8.0 L Seg Neutrophils # Seg Neutrophils # Man Lymphocytes # (Manual) 0.6 L D-Dimer POC ABG pH POC ABG pCO2 POC ABG pO2 Sodium Potassium Chloride Carbon Dioxide BUN 87 H Creatinine 4.2 H Glucose 231 H POC Glucose 255 H Calcium 6.2 L Phosphorus 5.2 H Albumin TSH Urine WBC (Auto) Urine Creatinine 07/17/16 07/17/16 07/18/16 16:22 23:41 05:06 WBC RBC 3.25 L Hgb 8.8 L Hct 27.2 L MCH 27 L RDW 17.0 H Plt Count Lymph % (Auto) Mayes % (Auto) Lymph # Mayes # Seg Neutrophils % Seg Neuts % (Manual) 80.0 H Lymphocytes % (Manual) 10.0 L Seg Neutrophils # Seg Neutrophils # Man Lymphocytes # (Manual) 0.9 L D-Dimer POC ABG pH POC ABG pCO2 POC ABG pO2 Sodium Potassium Chloride Carbon Dioxide BUN Creatinine Glucose POC Glucose 263 H 195 H Calcium Phosphorus Albumin TSH Urine WBC (Auto) Urine Creatinine 07/18/16 07/18/16 07/18/16 05:06 06:52 11:52 WBC RBC Hgb Hct MCH RDW Plt Count Lymph % (Auto) Mayes % (Auto) Lymph # Mayes # Seg Neutrophils % Seg Neuts % (Manual) Lymphocytes % (Manual) Seg Neutrophils # Seg Neutrophils # Man Lymphocytes # (Manual) D-Dimer POC ABG pH POC ABG pCO2 POC ABG pO2 Sodium Potassium Chloride 97.7 L Carbon Dioxide BUN 51 H Creatinine 2.8 H Glucose 252 H POC Glucose 289 H 242 H Calcium 6.4 L Phosphorus Albumin TSH Urine WBC (Auto) Urine Creatinine 07/18/16 07/18/16 07/19/16 16:36 21:34 05:50 WBC RBC Hgb Hct MCH RDW Plt Count Lymph % (Auto) Mayes % (Auto) Lymph # Mayes # Seg Neutrophils % Seg Neuts % (Manual) Lymphocytes % (Manual) Seg Neutrophils # Seg Neutrophils # Man Lymphocytes # (Manual) D-Dimer POC ABG pH POC ABG pCO2 POC ABG pO2 Sodium Potassium Chloride Carbon Dioxide BUN Creatinine Glucose POC Glucose 221 H 210 H 273 H Calcium Phosphorus Albumin TSH Urine WBC (Auto) Urine Creatinine 07/19/16 07/19/16 07/19/16 07:09 17:06 21:56 WBC RBC Hgb Hct MCH RDW Plt Count Lymph % (Auto) Mayes % (Auto) Lymph # Mayes # Seg Neutrophils % Seg Neuts % (Manual) Lymphocytes % (Manual) Seg Neutrophils # Seg Neutrophils # Man Lymphocytes # (Manual) D-Dimer POC ABG pH POC ABG pCO2 POC ABG pO2 Sodium Potassium Chloride 96.2 L Carbon Dioxide BUN 81 H Creatinine 4.9 H D Glucose 260 H POC Glucose 143 H 148 H Calcium 6.0 L Phosphorus Albumin TSH Urine WBC (Auto) Urine Creatinine 07/20/16 07/20/16 07/20/16 05:21 06:29 11:01 WBC RBC Hgb Hct MCH RDW Plt Count Lymph % (Auto) Mayes % (Auto) Lymph # Mayes # Seg Neutrophils % Seg Neuts % (Manual) Lymphocytes % (Manual) Seg Neutrophils # Seg Neutrophils # Man Lymphocytes # (Manual) D-Dimer POC ABG pH POC ABG pCO2 POC ABG pO2 Sodium 136 L Potassium 3.4 L Chloride 94.4 L Carbon Dioxide BUN 43 H Creatinine 3.5 H Glucose 263 H POC Glucose 299 H 281 H Calcium 6.5 L Phosphorus Albumin TSH Urine WBC (Auto) Urine Creatinine 07/20/16 07/20/16 07/21/16 17:07 22:54 06:24 WBC RBC Hgb Hct MCH RDW Plt Count Lymph % (Auto) Mayes % (Auto) Lymph # Mayes # Seg Neutrophils % Seg Neuts % (Manual) Lymphocytes % (Manual) Seg Neutrophils # Seg Neutrophils # Man Lymphocytes # (Manual) D-Dimer POC ABG pH POC ABG pCO2 POC ABG pO2 Sodium Potassium Chloride Carbon Dioxide BUN Creatinine Glucose POC Glucose 253 H 209 H 346 H Calcium Phosphorus Albumin TSH Urine WBC (Auto) Urine Creatinine 07/21/16 07/21/16 07:25 15:46 WBC RBC Hgb Hct MCH RDW Plt Count Lymph % (Auto) Mayes % (Auto) Lymph # Mayes # Seg Neutrophils % Seg Neuts % (Manual) Lymphocytes % (Manual) Seg Neutrophils # Seg Neutrophils # Man Lymphocytes # (Manual) D-Dimer POC ABG pH POC ABG pCO2 POC ABG pO2 Sodium 133 L Potassium Chloride 90.7 L Carbon Dioxide BUN 71 H Creatinine 4.8 H Glucose 289 H POC Glucose 112 H Calcium 6.2 L Phosphorus Albumin TSH Urine WBC (Auto) Urine Creatinine
[2016-07-22] MEDS: APRESOLINE FEEDTUBE SCH ×3 (06:02→21:36)
[2016-07-22] MEDS: HEPARIN SUB-Q SCH ×3 (06:21→22:25)
[2016-07-22] MEDS: SYNTHROID PO SCH (06:24)
--- NOTE | 2016-07-22 08:04 | Progress Note ---
Assessment and Plan - Patient Problems (1) Acute respiratory failure Current Visit: Yes Status: Resolved Plan to address problem: supportive care, supplemental oxygen, nebs, aspiration precautions. (2) Dysphagia Current Visit: Yes Status: Acute Plan to address problem: GI consulted, Pending PEG placement (3) Encephalopathy acute Current Visit: Yes Status: Chronic Plan to address problem: Metabolic: continue supportive care. (4) Acute UTI Current Visit: No Status: Acute Plan to address problem: Iv abx, supportive care (5) Bipolar disorder Current Visit: No Status: Acute Qualifiers: Active/Remission status: remission status unspecified Most recent bipolar episode type: most recent episode unspecified type Plan to address problem: psych consulted, (6) DVT prophylaxis Current Visit: No Status: Acute History Interval history: Pt lying in bed, nonverbal, no reported nursing events. Case management consulted, D/C planning s/p peg placement. No improvement overnight. Discussed care plan with daughter. Pending approval for PEG placement from family. Hospitalist Physical - Constitutional Vitals: Temp Pulse Resp BP Pulse Ox 99.5 F 86 20 129/61 100 07/22/16 00:00 07/22/16 00:00 07/22/16 01:00 07/22/16 00:00 07/22/16 00:00 General appearance: Present: no acute distress, obese - EENT Eyes: Present: PERRL ENT: hearing intact - Neck Neck: Present: supple - Respiratory Respiratory: bilateral: diminished - Cardiovascular Rhythm: regular Heart Sounds: Present: S1 & S2 Peripheral Pulses: within normal limits - Abdominal General gastrointestinal: soft, non-tender, non-distended, no hepatomegaly, no splenomegaly - Integumentary Integumentary: Present: clear, dry - Psychiatric Psychiatric: no intact judgment & insight, no memory intact - Neurologic Neurologic: no gait normal Results - Labs CBC & Chem 7: 07/18/16 05:06 07/21/16 07:25 Labs: Laboratory Last Values WBC 8.6 K/mm3 (4.5-11.0) 07/18/16 05:06 RBC 3.25 M/mm3 (3.65-5.03) L 07/18/16 05:06 Hgb 8.8 gm/dl (10.1-14.3) L 07/18/16 05:06 Hct 27.2 % (30.3-42.9) L 07/18/16 05:06 MCV 84 fl (79-97) 07/18/16 05:06 MCH 27 pg (28-32) L 07/18/16 05:06 MCHC 33 % (30-34) 07/18/16 05:06 RDW 17.0 % (13.2-15.2) H 07/18/16 05:06 Plt Count 175 K/mm3 (140-440) 07/18/16 05:06 Lymph % (Auto) 4.2 % (13.4-35.0) L 07/16/16 09:54 [place] % (Auto) 6.1 % (0.0-7.3) 07/16/16 09:54 Eos % (Auto) 0.0 % (0.0-4.3) 07/16/16 09:54 Baso % (Auto) 0.1 % (0.0-1.8) 07/16/16 09:54 Lymph # 0.3 K/mm3 (1.2-5.4) L 07/16/16 09:54 [place] # 0.5 K/mm3 (0.0-0.8) 07/16/16 09:54 Eos # 0.0 K/mm3 (0.0-0.4) 07/16/16 09:54 Baso # 0.0 K/mm3 (0.0-0.1) 07/16/16 09:54 Add Manual Diff Complete 07/18/16 05:06 Total Counted 100 07/18/16 05:06 Seg Neutrophils % Paper Cup Machine Tender 07/18/16 05:06 Seg Neuts % (Manual) 80.0 % (40.0-70.0) H 07/18/16 05:06 Band Neutrophils % 4.0 % 07/18/16 05:06 Lymphocytes % (Manual) 10.0 % (13.4-35.0) L 07/18/16 05:06 Reactive Lymphs % (Man) 0 % 07/18/16 05:06 Monocytes % (Manual) 6.0 % (0.0-7.3) 07/18/16 05:06 Eosinophils % (Manual) 0 % (0.0-4.3) 07/17/16 06:52 Basophils % (Manual) 0 % (0.0-1.8) 07/17/16 06:52 Metamyelocytes % 0 % 07/18/16 05:06 Myelocytes % 0 % 07/18/16 05:06 Promyelocytes % 0 % 07/18/16 05:06 Blast Cells % 0 % 07/18/16 05:06 Nucleated RBC % Not Reportable 07/18/16 05:06 Seg Neutrophils # 7.5 K/mm3 (1.8-7.7) 07/16/16 09:54 Seg Neutrophils # Man 6.9 K/mm3 (1.8-7.7) 07/18/16 05:06 Band Neutrophils # 0.3 K/mm3 07/18/16 05:06 Lymphocytes # (Manual) 0.9 K/mm3 (1.2-5.4) L 07/18/16 05:06 Abs React Lymphs (Man) 0.0 K/mm3 07/18/16 05:06 Monocytes # (Manual) 0.5 K/mm3 (0.0-0.8) 07/18/16 05:06 Eosinophils # (Manual) 0.0 K/mm3 (0.0-0.4) 07/18/16 05:06 Basophils # (Manual) 0.0 K/mm3 (0.0-0.1) 07/18/16 05:06 Metamyelocytes # 0.0 K/mm3 07/18/16 05:06 Myelocytes # 0.0 K/mm3 07/18/16 05:06 Promyelocytes # 0.0 K/mm3 07/18/16 05:06 Blast Cells # 0.0 K/mm3 07/18/16 05:06 WBC Morphology Not Reportable 07/18/16 05:06 Hypersegmented Neuts Not Reportable 07/18/16 05:06 Hyposegmented Neuts Not Reportable 07/18/16 05:06 Hypogranular Neuts Not Reportable 07/18/16 05:06 Smudge Cells Not Reportable 07/18/16 05:06 Toxic Granulation Not Reportable 07/18/16 05:06 Toxic Vacuolation Not Reportable 07/18/16 05:06 Dohle Bodies Not Reportable 07/18/16 05:06 Pelger-Huet Anomaly Not Reportable 07/18/16 05:06 Shagufta Rods Not Reportable 07/18/16 05:06 Platelet Estimate Not Reportable 07/18/16 05:06 Clumped Platelets Not Reportable 07/18/16 05:06 Plt Clumps, EDTA Not Reportable 07/18/16 05:06 Large Platelets Not Reportable 07/18/16 05:06 Giant Platelets Not Reportable 07/18/16 05:06 Platelet Satelliting Not Reportable 07/18/16 05:06 Plt Morphology Comment Not Reportable 07/18/16 05:06 RBC Morphology Not Reportable 07/18/16 05:06 Dimorphic RBCs Not Reportable 07/18/16 05:06 Polychromasia Not Reportable 07/18/16 05:06 Hypochromasia Not Reportable 07/18/16 05:06 Poikilocytosis Not Reportable 07/18/16 05:06 Anisocytosis 1+ 07/18/16 05:06 Microcytosis Not Reportable 07/18/16 05:06 Macrocytosis Not Reportable 07/18/16 05:06 Spherocytes Not Reportable 07/18/16 05:06 Pappenheimer Bodies Not Reportable 07/18/16 05:06 Sickle Cells Not Reportable 07/18/16 05:06 Target Cells Not Reportable 07/18/16 05:06 Tear Drop Cells Not Reportable 07/18/16 05:06 Ovalocytes Not Reportable 07/18/16 05:06 Helmet Cells Not Reportable 07/18/16 05:06 Pérez-Eldora Bodies Not Reportable 07/18/16 05:06 [place] Rings Not Reportable 07/18/16 05:06 Radha Cells Not Reportable 07/18/16 05:06 Bite Cells Not Reportable 07/18/16 05:06 Crenated Cell Not Reportable 07/18/16 05:06 Elliptocytes Few 07/18/16 05:06 Acanthocytes (Spur) Not Reportable 07/18/16 05:06 Rouleaux Not Reportable 07/18/16 05:06 Hemoglobin C Crystals Not Reportable 07/18/16 05:06 Schistocytes Not Reportable 07/18/16 05:06 Malaria parasites Not Reportable 07/18/16 05:06 Kaushik Bodies Not Reportable 07/18/16 05:06 Hem Pathologist Commnt No 07/18/16 05:06 PT 14.1 Sec. (12.2-14.9) 07/18/16 05:06 INR 1.10 (0.87-1.13) 07/18/16 05:06 APTT 34.8 Sec. (24.2-36.6) 07/18/16 05:06 D-Dimer 751.80 ng/mlDDU (0-234) H 07/11/16 12:22 POC ABG pH 7.529 (7.35-7.45) H 07/13/16 14:15 POC ABG pCO2 26.8 (35-45) L 07/13/16 14:15 POC ABG pO2 70 (80-105) L 07/13/16 14:15 POC ABG HCO3 22.3 07/13/16 14:15 POC ABG Total CO2 23 07/13/16 14:15 POC ABG O2 Sat 96 07/13/16 14:15 POC ABG Base Excess 0 07/13/16 14:15 FiO2 21 % 07/13/16 14:15 Sodium 133 mmol/L (137-145) L 07/21/16 07:25 Potassium 3.6 mmol/L (3.6-5.0) 07/21/16 07:25 Chloride 90.7 mmol/L (98-107) L 07/21/16 07:25 Carbon Dioxide 25 mmol/L (22-30) 07/21/16 07:25 Anion Gap 21 mmol/L 07/21/16 07:25 BUN 71 mg/dL (7-17) H 07/21/16 07:25 Creatinine 4.8 mg/dL (0.7-1.2) H 07/21/16 07:25 Estimated GFR 11 ml/min 07/21/16 07:25 BUN/Creatinine Ratio 14.79 % 07/21/16 07:25 Glucose 289 mg/dL (65-100) H 07/21/16 07:25 POC Glucose 316 (70-105) H 07/22/16 06:28 Hemoglobin A1c 5.6 % (4-6) 07/15/16 04:56 Lactic Acid 0.8 mmol/L (0.7-2.0) 07/19/16 00:37 Calcium 6.2 mg/dL (8.4-10.2) L 07/21/16 07:25 Phosphorus 5.2 mg/dL (2.5-4.5) H 07/17/16 06:52 Magnesium 1.9 mg/dL (1.7-2.3) 07/17/16 06:52 Total Bilirubin < 0.2 mg/dL (0.1-1.2) 07/10/16 06:43 AST 17 units/L (5-40) 07/10/16 06:43 ALT 9 units/L (7-56) 07/10/16 06:43 Alkaline Phosphatase 62 units/L (35-129) 07/10/16 06:43 Total Creatine Kinase 131 units/L (30-135) 07/11/16 12:22 CK-MB (CK-2) 2.0 ng/mL (0.0-4.0) 07/11/16 12:22 CK-MB (CK-2) Rel Index 1.5 (0-4) 07/11/16 12:22 Troponin T < 0.010 ng/mL (0.00-0.029) 07/11/16 12:22 Total Protein 6.7 g/dL (6.3-8.2) 07/10/16 06:43 Albumin 3.5 g/dL (3.9-5) L 07/10/16 06:43 Albumin/Globulin Ratio 1.1 % 07/10/16 06:43 TSH 8.090 mlU/mL (0.270-4.200) H 07/05/16 05:08 Urine Color Straw (Yellow) 07/06/16 01:18 Urine Turbidity Clear (Clear) 07/06/16 01:18 Urine pH 6.0 (5.0-7.0) 07/06/16 01:18 Ur Specific [place] 1.003 (1.003-1.030) 07/06/16 01:18 Urine Protein <15 mg/dl mg/dL (Negative) 07/06/16 01:18 Urine Glucose (UA) Neg mg/dL (Negative) 07/06/16 01:18 Urine Ketones Neg mg/dL (Negative) 07/06/16 01:18 Urine Blood Neg (Negative) 07/06/16 01:18 Urine Nitrite Neg (Negative) 07/06/16 01:18 Urine Bilirubin Neg (Negative) 07/06/16 01:18 Urine Urobilinogen < 2.0 mg/dL (<2.0) 07/06/16 01:18 Ur Leukocyte Esterase Mod (Negative) 07/06/16 01:18 Urine WBC (Auto) 7.0 /HPF (0.0-6.0) H 07/06/16 01:18 Urine RBC (Auto) 3.0 /HPF (0.0-6.0) 07/06/16 01:18 U Epithel Cells (Auto) 1.0 /HPF (0-13.0) 06/30/16 11:34 Urine Bacteria (Auto) 1+ /HPF (Negative) 06/30/16 11:34 Urine Eosinophils None seen (None Seen) 07/06/16 01:18 Urine Creatinine 36.6 mg/dL (0.1-20.0) H 07/06/16 01:18 Urine Microalbumin 6.5 mg/dL (0.1-34.0) 07/06/16 01:18 Microalb/Creat Ratio 177.5 ug/mg 07/06/16 01:18 Urine Sodium 28 mEq/L 07/06/16 01:18 Urine Opiates Screen Presumptive negative 06/30/16 11:34 Urine Methadone Screen Presumptive negative 06/30/16 11:34 Acetaminophen < 15.0 ug/mL (10.0-30.0) 06/30/16 12:01 Ur Barbiturates Screen Presumptive negative 06/30/16 11:34 Ur Phencyclidine Scrn Presumptive negative 06/30/16 11:34 Ur Amphetamines Screen Presumptive negative 06/30/16 11:34 U Benzodiazepines Scrn Presumptive negative 06/30/16 11:34 Urine Cocaine Screen Presumptive negative 06/30/16 11:34 U Marijuana (THC) Screen Presumptive negative 06/30/16 11:34 Drugs of Abuse Note Disclamer 06/30/16 11:34 Plasma/Serum Alcohol < 0.01 gm% (0-0.07) 06/30/16 12:01 Hepatitis A IgM Ab -1 (NonReactive) 07/16/16 19:08 Hep Bs Antigen Non-reactive (Negative) 07/16/16 19:08 Hep B Core IgM Ab Non-reactive (NonReactive) 07/16/16 19:08 Hepatitis C Antibody Non-reactive (NonReactive) 07/16/16 19:08
[2016-07-22] MEDS: PEPCID PO SCH (09:52)
[2016-07-22] MEDS: NORMODYNE PO SCH ×3 (09:53→20:36)
[2016-07-22] MEDS: NOVOLOG SUB-Q SCH ×4 (09:55→22:26)
[2016-07-22] MEDS: NEURONTIN PO SCH ×2 (11:42→21:35)
--- NOTE | 2016-07-22 18:07 | Progress Note ---
Assessment and Plan - Patient Problems (1) GABRIELA (acute kidney injury) Current Visit: Yes Status: Acute Plan to address problem: GABRIELA Oliguric, dialysis dependent Will keep her hydrated Avoid nephrotoxic agent Monitor for recovry of renal function Re Evaluate for dialysis on sunday and consider permacath placement (2) Chronic renal insufficiency Current Visit: Yes Status: Acute Subjective Date of service: 07/22/16 Principal diagnosis: Acute Respiratory Failure; Angioedema Interval history: No complaints Objective - Exam Narrative Exam: Middle-aged female in NAD HEENT normocephalic/atraumatic pink conjunctiva anicteric sclera, Neck is supple no JVD trachea central, Chest is bilateral coarse breath sound equal chest expansion, Heart S1-S2 regular rate and rhythm, Abdomen is soft nontender no organomegaly, Extremities no edema cyanosis or clubbing, Neuro Alert, awake and follows commands - Vital Signs Vital signs: Vital Signs - 12hr 07/22/16 07/22/16 07/22/16 08:00 10:00 17:00 Temperature 97.6 F 97.5 F L Pulse Rate [ 80 Left Radial] Pulse Rate [ 80 Right Radial] Respiratory 20 18 Rate Blood Pressure 119/58 138/65 [Right Arm] O2 Sat by Pulse 96 99 96 Oximetry - Lab 07/18/16 05:06 07/21/16 07:25 Most recent lab results Calcium 6.2 mg/dL (8.4-10.2) L 07/21/16 07:25 Phosphorus 5.2 mg/dL (2.5-4.5) H 07/17/16 06:52 Magnesium 1.9 mg/dL (1.7-2.3) 07/17/16 06:52 Urine Creatinine 36.6 mg/dL (0.1-20.0) H 07/06/16 01:18 Urine Sodium 28 mEq/L 07/06/16 01:18
[2016-07-22] MEDS ORDERED: NACL 0.9% 1000 ML 1,000 ML IV SCH (19:00)
[2016-07-22] MEDS: NACL 0.9% 1000 ML 1,000 ML IV SCH (19:00)
--- NOTE | 2016-07-22 21:40 | Progress Note ---
Assessment and Plan Patient sleeping at this time., Sleeping on 2 litres O2. O2 satuaration 100% on 2 litres O2.No acute respiratory distress. - Patient Problems (1) Angioedema Current Visit: Yes Status: Acute Plan to address problem: Improved. (2) GABRIELA (acute kidney injury) Current Visit: Yes Status: Acute Plan to address problem: Patient is on dialysis. Mangement as per nephrology. (3) Encephalopathy acute Current Visit: Yes Status: Chronic Plan to address problem: Management as per primary care. (4) Hypertension Current Visit: Yes Status: Acute Plan to address problem: Management as per primary care. (5) Diabetes Current Visit: No Status: Acute Qualifiers: Diabetes mellitus type: type 2 Diabetes mellitus complication status: with kidney complications Diabetes mellitus complication detail: with chronic kidney disease Plan to address problem: Management as per primary care. (6) Bipolar disorder Current Visit: No Status: Acute Qualifiers: Active/Remission status: remission status unspecified Most recent bipolar episode type: most recent episode unspecified type Plan to address problem: Management as per primary care and psychiatry. Subjective Date of service: 07/22/16 Principal diagnosis: Acute Respiratory Failure; Angioedema Interval history: . Patient sleeping at this time., Patient sleeping on 2 litres O2. O2 satuaration 100% on 2 litres O2.No acute respiratory distress. Objective Vital Signs - 12hr 07/22/16 07/22/16 07/22/16 10:00 17:00 20:36 Temperature 97.5 F L Pulse Rate [ 80 Left Radial] Respiratory 18 Rate Blood Pressure 138/65 [Right Arm] O2 Sat by Pulse 99 96 100 Oximetry Constitutional: no acute distress, lethargic Eyes: non-icteric ENT: oropharynx moist Neck: supple, no lymphadenopathy Effort: normal Ascultation: Bilateral: diminished breath sounds Cardiovascular: regular rate and rhythm Gastrointestinal: normoactive bowel sounds, soft, non-tender, non-distended Integumentary: normal Extremities: no cyanosis, no edema, pulses normal, no ischemia or petechiae Neurologic: non-focal exam (grossly), pupils equal and round, CN II-XII normal Psychiatric: anxious CBC and BMP: 07/18/16 05:06 07/21/16 07:25 ABG, PT/INR, D-dimer: ABG POC ABG pH 7.529 (7.35-7.45) H 07/13/16 14:15 POC ABG pCO2 26.8 (35-45) L 07/13/16 14:15 POC ABG pO2 70 (80-105) L 07/13/16 14:15 POC ABG HCO3 22.3 07/13/16 14:15 POC ABG Total CO2 23 07/13/16 14:15 POC ABG O2 Sat 96 07/13/16 14:15 PT/INR, D-dimer PT 14.1 Sec. (12.2-14.9) 07/18/16 05:06 INR 1.10 (0.87-1.13) 07/18/16 05:06 D-Dimer 751.80 ng/mlDDU (0-234) H 07/11/16 12:22 Abnormal lab findings: Abnormal Labs 07/03/16 07/03/16 07/04/16 14:34 14:34 06:21 WBC 3.9 L RBC 3.16 L 3.04 L Hgb 8.5 L 8.0 L Hct 26.8 L 25.6 L MCH 27 L 26 L RDW 16.5 H 16.2 H Plt Count Lymph % (Auto) [place] % (Auto) 10.7 H 10.7 H Lymph # 1.0 L [place] # Seg Neutrophils % Seg Neuts % (Manual) Lymphocytes % (Manual) Seg Neutrophils # Seg Neutrophils # Man Lymphocytes # (Manual) D-Dimer POC ABG pH POC ABG pCO2 POC ABG pO2 Sodium Potassium Chloride 107.6 H Carbon Dioxide BUN 27 H Creatinine 2.6 H Glucose POC Glucose Calcium 8.0 L Phosphorus Albumin TSH Urine WBC (Auto) Urine Creatinine 07/04/16 07/04/16 07/04/16 06:21 11:30 16:33 WBC RBC Hgb Hct MCH RDW Plt Count Lymph % (Auto) [place] % (Auto) Lymph # [place] # Seg Neutrophils % Seg Neuts % (Manual) Lymphocytes % (Manual) Seg Neutrophils # Seg Neutrophils # Man Lymphocytes # (Manual) D-Dimer POC ABG pH POC ABG pCO2 POC ABG pO2 Sodium Potassium Chloride 107.4 H Carbon Dioxide 21 L BUN 27 H Creatinine 2.7 H Glucose POC Glucose 110 H 106 H Calcium 7.8 L Phosphorus Albumin TSH Urine WBC (Auto) Urine Creatinine 07/05/16 07/05/1616 05:08 05:08 05:08 WBC 4.0 L RBC 2.87 L Hgb 7.7 L Hct 24.2 L MCH 27 L RDW 16.0 H Plt Count Lymph % (Auto) [place] % (Auto) Lymph # [place] # Seg Neutrophils % Seg Neuts % (Manual) Lymphocytes % (Manual) Seg Neutrophils # Seg Neutrophils # Man Lymphocytes # (Manual) D-Dimer POC ABG pH POC ABG pCO2 POC ABG pO2 Sodium Potassium Chloride Carbon Dioxide 21 L BUN 32 H Creatinine 3.7 H Glucose POC Glucose Calcium 7.8 L Phosphorus Albumin TSH 8.090 H Urine WBC (Auto) Urine Creatinine 07/05/16 07/06/16 07/06/16 11:45 01:18 01:18 WBC RBC Hgb 8.3 L Hct 25.9 L MCH RDW Plt Count Lymph % (Auto) [place] % (Auto) Lymph # [place] # Seg Neutrophils % Seg Neuts % (Manual) Lymphocytes % (Manual) Seg Neutrophils # Seg Neutrophils # Man Lymphocytes # (Manual) D-Dimer POC ABG pH POC ABG pCO2 POC ABG pO2 Sodium Potassium Chloride Carbon Dioxide BUN Creatinine Glucose POC Glucose Calcium Phosphorus Albumin TSH Urine WBC (Auto) 7.0 H Urine Creatinine 36.6 H 07/06/16 07/06/16 07/06/16 05:55 05:55 16:07 WBC 3.0 L RBC 2.79 L Hgb 7.5 L Hct 23.5 L MCH 27 L RDW 16.5 H Plt Count Lymph % (Auto) [place] % (Auto) Lymph # [place] # Seg Neutrophils % Seg Neuts % (Manual) Lymphocytes % (Manual) Seg Neutrophils # Seg Neutrophils # Man Lymphocytes # (Manual) D-Dimer POC ABG pH POC ABG pCO2 POC ABG pO2 Sodium Potassium Chloride 109.3 H Carbon Dioxide 20 L BUN 32 H Creatinine 3.4 H Glucose POC Glucose 117 H Calcium 7.5 L Phosphorus Albumin TSH Urine WBC (Auto) Urine Creatinine 07/07/16 07/07/16 07/08/16 06:19 16:13 00:09 WBC RBC Hgb Hct MCH RDW Plt Count Lymph % (Auto) [place] % (Auto) Lymph # [place] # Seg Neutrophils % Seg Neuts % (Manual) Lymphocytes % (Manual) Seg Neutrophils # Seg Neutrophils # Man Lymphocytes # (Manual) D-Dimer POC ABG pH POC ABG pCO2 POC ABG pO2 Sodium Potassium Chloride 111.1 H Carbon Dioxide 20 L BUN 31 H Creatinine 3.1 H Glucose POC Glucose 108 H 134 H Calcium 8.0 L Phosphorus Albumin TSH Urine WBC (Auto) Urine Creatinine 07/08/16 07/08/16 07/08/16 11:39 16:31 21:22 WBC RBC Hgb Hct MCH RDW Plt Count Lymph % (Auto) [place] % (Auto) Lymph # [place] # Seg Neutrophils % Seg Neuts % (Manual) Lymphocytes % (Manual) Seg Neutrophils # Seg Neutrophils # Man Lymphocytes # (Manual) D-Dimer POC ABG pH POC ABG pCO2 POC ABG pO2 Sodium Potassium Chloride Carbon Dioxide BUN Creatinine Glucose POC Glucose 119 H 130 H 152 H Calcium Phosphorus Albumin TSH Urine WBC (Auto) Urine Creatinine 07/09/16 07/09/16 07/09/16 05:52 05:52 06:02 WBC RBC 3.55 L Hgb 9.4 L Hct MCH 27 L RDW 17.1 H Plt Count Lymph % (Auto) [place] % (Auto) Lymph # [place] # Seg Neutrophils % Seg Neuts % (Manual) Lymphocytes % (Manual) Seg Neutrophils # Seg Neutrophils # Man Lymphocytes # (Manual) D-Dimer POC ABG pH POC ABG pCO2 POC ABG pO2 Sodium 147 H Potassium 5.4 H Chloride 112.8 H Carbon Dioxide 21 L BUN 30 H Creatinine 2.5 H Glucose 21 L* POC Glucose < 40 L Calcium Phosphorus Albumin TSH Urine WBC (Auto) Urine Creatinine 07/09/16 07/09/16 07/10/16 11:31 16:50 05:23 WBC RBC Hgb Hct MCH RDW Plt Count Lymph % (Auto) [place] % (Auto) Lymph # [place] # Seg Neutrophils % Seg Neuts % (Manual) Lymphocytes % (Manual) Seg Neutrophils # Seg Neutrophils # Man Lymphocytes # (Manual) D-Dimer POC ABG pH POC ABG pCO2 POC ABG pO2 Sodium Potassium Chloride Carbon Dioxide BUN Creatinine Glucose POC Glucose 114 H 149 H < 40 L Calcium Phosphorus Albumin TSH Urine WBC (Auto) Urine Creatinine 07/10/16 07/10/16 07/10/16 06:03 06:43 06:43 WBC RBC 2.90 L Hgb 7.7 L Hct 25.0 L MCH 27 L RDW 17.0 H Plt Count Lymph % (Auto) [place] % (Auto) 10.4 H Lymph # 1.1 L [place] # Seg Neutrophils % Seg Neuts % (Manual) Lymphocytes % (Manual) Seg Neutrophils # Seg Neutrophils # Man Lymphocytes # (Manual) D-Dimer POC ABG pH POC ABG pCO2 POC ABG pO2 Sodium 148 H Potassium 5.1 H Chloride 111.7 H Carbon Dioxide 20 L BUN 31 H Creatinine 2.4 H Glucose POC Glucose 211 H Calcium 8.0 L Phosphorus Albumin 3.5 L TSH Urine WBC (Auto) Urine Creatinine 07/10/16 07/11/16 07/11/16 14:55 05:37 05:47 WBC RBC Hgb 7.9 L Hct 25.5 L MCH RDW Plt Count Lymph % (Auto) [place] % (Auto) Lymph # [place] # Seg Neutrophils % Seg Neuts % (Manual) Lymphocytes % (Manual) Seg Neutrophils # Seg Neutrophils # Man Lymphocytes # (Manual) D-Dimer POC ABG pH POC ABG pCO2 POC ABG pO2 Sodium Potassium Chloride Carbon Dioxide BUN Creatinine Glucose POC Glucose < 40 L > 500 H Calcium Phosphorus Albumin TSH Urine WBC (Auto) Urine Creatinine 07/11/16 07/11/16 07/11/16 05:56 07:42 07:48 WBC RBC Hgb Hct MCH RDW Plt Count Lymph % (Auto) [place] % (Auto) Lymph # [place] # Seg Neutrophils % Seg Neuts % (Manual) Lymphocytes % (Manual) Seg Neutrophils # Seg Neutrophils # Man Lymphocytes # (Manual) D-Dimer POC ABG pH POC ABG pCO2 POC ABG pO2 Sodium Potassium Chloride Carbon Dioxide BUN Creatinine Glucose POC Glucose 262 H 56 L 54 L Calcium Phosphorus Albumin TSH Urine WBC (Auto) Urine Creatinine 07/11/16 07/11/16 07/11/16 08:34 08:50 09:53 WBC RBC Hgb Hct MCH RDW Plt Count Lymph % (Auto) [place] % (Auto) Lymph # [place] # Seg Neutrophils % Seg Neuts % (Manual) Lymphocytes % (Manual) Seg Neutrophils # Seg Neutrophils # Man Lymphocytes # (Manual) D-Dimer POC ABG pH POC ABG pCO2 31.1 L POC ABG pO2 108 H Sodium Potassium Chloride Carbon Dioxide BUN Creatinine Glucose POC Glucose 110 H 68 L Calcium Phosphorus Albumin TSH Urine WBC (Auto) Urine Creatinine 07/11/16 07/11/16 07/11/16 11:48 12:22 12:22 WBC 11.6 H RBC Hgb Hct MCH 27 L RDW 17.2 H Plt Count Lymph % (Auto) [place] % (Auto) Lymph # [place] # Seg Neutrophils % Seg Neuts % (Manual) 91.0 H Lymphocytes % (Manual) 5.0 L Seg Neutrophils # 10.8 H Seg Neutrophils # Man 10.6 H Lymphocytes # (Manual) 0.6 L D-Dimer 751.80 H POC ABG pH POC ABG pCO2 POC ABG pO2 Sodium Potassium Chloride Carbon Dioxide BUN Creatinine Glucose POC Glucose 118 H Calcium Phosphorus Albumin TSH Urine WBC (Auto) Urine Creatinine 07/11/16 07/11/16 07/11/16 12:22 12:29 15:23 WBC RBC Hgb Hct MCH RDW Plt Count Lymph % (Auto) [place] % (Auto) Lymph # [place] # Seg Neutrophils % Seg Neuts % (Manual) Lymphocytes % (Manual) Seg Neutrophils # Seg Neutrophils # Man Lymphocytes # (Manual) D-Dimer POC ABG pH POC ABG pCO2 28.4 L POC ABG pO2 Sodium Potassium 6.1 H* Chloride 109.4 H Carbon Dioxide 18 L BUN 30 H Creatinine 2.1 H Glucose 126 H POC Glucose 204 H Calcium Phosphorus Albumin TSH Urine WBC (Auto) Urine Creatinine 07/11/16 07/11/16 07/11/16 17:27 17:55 21:42 WBC RBC Hgb Hct MCH RDW Plt Count Lymph % (Auto) [place] % (Auto) Lymph # [place] # Seg Neutrophils % Seg Neuts % (Manual) Lymphocytes % (Manual) Seg Neutrophils # Seg Neutrophils # Man Lymphocytes # (Manual) D-Dimer POC ABG pH POC ABG pCO2 POC ABG pO2 Sodium 146 H Potassium 6.5 H* Chloride 109.7 H Carbon Dioxide 20 L BUN 32 H Creatinine 2.4 H Glucose 167 H POC Glucose 433 H 142 H Calcium Phosphorus Albumin TSH Urine WBC (Auto) Urine Creatinine 07/12/16 07/12/16 07/12/16 04:34 04:34 05:22 WBC 14.0 H RBC Hgb Hct MCH 27 L RDW 17.6 H Plt Count 113 L Lymph % (Auto) [place] % (Auto) Lymph # [place] # Seg Neutrophils % Seg Neuts % (Manual) 87.0 H Lymphocytes % (Manual) 11.0 L Seg Neutrophils # Seg Neutrophils # Man 12.2 H Lymphocytes # (Manual) D-Dimer POC ABG pH 7.452 H POC ABG pCO2 29.6 L POC ABG pO2 Sodium Potassium 6.8 H* Chloride 110.2 H Carbon Dioxide 16 L BUN 43 H Creatinine 2.9 H Glucose 113 H POC Glucose Calcium Phosphorus Albumin TSH Urine WBC (Auto) Urine Creatinine 07/12/16 07/12/16 07/12/16 13:24 17:28 21:11 WBC RBC Hgb Hct MCH RDW Plt Count Lymph % (Auto) [place] % (Auto) Lymph # [place] # Seg Neutrophils % Seg Neuts % (Manual) Lymphocytes % (Manual) Seg Neutrophils # Seg Neutrophils # Man Lymphocytes # (Manual) D-Dimer POC ABG pH POC ABG pCO2 POC ABG pO2 Sodium 150 H Potassium Chloride 108.9 H Carbon Dioxide 21 L BUN 52 H Creatinine 3.7 H Glucose 143 H POC Glucose 148 H 134 H Calcium 8.0 L Phosphorus Albumin TSH Urine WBC (Auto) Urine Creatinine 07/12/16 07/13/16 07/13/16 21:50 04:40 04:40 WBC 14.0 H RBC 3.50 L Hgb 9.3 L Hct 29.3 L MCH 27 L RDW 17.3 H Plt Count Lymph % (Auto) 4.9 L [place] % (Auto) Lymph # 0.7 L [place] # Seg Neutrophils % 90.0 H Seg Neuts % (Manual) 93.0 H Lymphocytes % (Manual) 5.0 L Seg Neutrophils # 12.6 H Seg Neutrophils # Man 13.0 H Lymphocytes # (Manual) 0.7 L D-Dimer POC ABG pH POC ABG pCO2 POC ABG pO2 Sodium 151 H Potassium Chloride 109.3 H Carbon Dioxide BUN 59 H Creatinine 4.0 H Glucose 63 L POC Glucose 156 H Calcium 7.7 L Phosphorus Albumin TSH Urine WBC (Auto) Urine Creatinine 07/13/16 07/13/16 07/13/16 06:10 06:40 08:03 WBC RBC Hgb Hct MCH RDW Plt Count Lymph % (Auto) [place] % (Auto) Lymph # [place] # Seg Neutrophils % Seg Neuts % (Manual) Lymphocytes % (Manual) Seg Neutrophils # Seg Neutrophils # Man Lymphocytes # (Manual) D-Dimer POC ABG pH POC ABG pCO2 POC ABG pO2 Sodium Potassium Chloride Carbon Dioxide BUN Creatinine Glucose POC Glucose 68 L 176 H 141 H Calcium Phosphorus Albumin TSH Urine WBC (Auto) Urine Creatinine 07/13/16 07/13/16 07/13/16 09:17 12:30 14:15 WBC RBC Hgb Hct MCH RDW Plt Count Lymph % (Auto) [place] % (Auto) Lymph # [place] # Seg Neutrophils % Seg Neuts % (Manual) Lymphocytes % (Manual) Seg Neutrophils # Seg Neutrophils # Man Lymphocytes # (Manual) D-Dimer POC ABG pH 7.475 H 7.529 H POC ABG pCO2 33.4 L 26.8 L POC ABG pO2 110 H 70 L Sodium Potassium Chloride Carbon Dioxide BUN Creatinine Glucose POC Glucose 177 H Calcium Phosphorus Albumin TSH Urine WBC (Auto) Urine Creatinine 07/13/16 07/13/16 07/13/16 15:28 17:57 22:10 WBC RBC Hgb Hct MCH RDW Plt Count Lymph % (Auto) [place] % (Auto) Lymph # [place] # Seg Neutrophils % Seg Neuts % (Manual) Lymphocytes % (Manual) Seg Neutrophils # Seg Neutrophils # Man Lymphocytes # (Manual) D-Dimer POC ABG pH POC ABG pCO2 POC ABG pO2 Sodium Potassium Chloride Carbon Dioxide BUN Creatinine Glucose POC Glucose 122 H 166 H 197 H Calcium Phosphorus Albumin TSH Urine WBC (Auto) Urine Creatinine 07/14/16 07/14/16 07/14/16 02:00 04:21 04:21 WBC RBC 3.01 L Hgb 8.1 L Hct 25.3 L MCH 27 L RDW 17.9 H Plt Count Lymph % (Auto) 6.1 L [place] % (Auto) Lymph # 0.5 L [place] # Seg Neutrophils % 89.9 H Seg Neuts % (Manual) Lymphocytes % (Manual) Seg Neutrophils # Seg Neutrophils # Man Lymphocytes # (Manual) D-Dimer POC ABG pH POC ABG pCO2 POC ABG pO2 Sodium 150 H Potassium Chloride 107.3 H Carbon Dioxide 21 L BUN 82 H Creatinine 4.8 H Glucose 176 H POC Glucose 166 H Calcium 6.8 L Phosphorus Albumin TSH Urine WBC (Auto) Urine Creatinine 07/14/16 07/14/16 07/14/16 05:32 09:42 22:32 WBC RBC Hgb Hct MCH RDW Plt Count Lymph % (Auto) [place] % (Auto) Lymph # [place] # Seg Neutrophils % Seg Neuts % (Manual) Lymphocytes % (Manual) Seg Neutrophils # Seg Neutrophils # Man Lymphocytes # (Manual) D-Dimer POC ABG pH POC ABG pCO2 POC ABG pO2 Sodium Potassium Chloride Carbon Dioxide BUN Creatinine Glucose POC Glucose 202 H 216 H 191 H Calcium Phosphorus Albumin TSH Urine WBC (Auto) Urine Creatinine 07/15/16 07/15/16 07/15/16 04:46 04:56 04:56 WBC RBC 3.04 L Hgb 8.2 L Hct 25.8 L MCH 27 L RDW 17.3 H Plt Count Lymph % (Auto) 4.2 L [place] % (Auto) 11.8 H Lymph # 0.4 L [place] # 1.1 H Seg Neutrophils % 83.9 H Seg Neuts % (Manual) Lymphocytes % (Manual) Seg Neutrophils # Seg Neutrophils # Man Lymphocytes # (Manual) D-Dimer POC ABG pH POC ABG pCO2 POC ABG pO2 Sodium 147 H Potassium 3.4 L Chloride Carbon Dioxide 20 L BUN 109 H Creatinine 5.2 H Glucose 242 H POC Glucose 275 H Calcium 6.3 L Phosphorus Albumin TSH Urine WBC (Auto) Urine Creatinine 07/15/16 07/15/16 07/15/16 11:32 16:52 20:41 WBC RBC Hgb Hct MCH RDW Plt Count Lymph % (Auto) [place] % (Auto) Lymph # [place] # Seg Neutrophils % Seg Neuts % (Manual) Lymphocytes % (Manual) Seg Neutrophils # Seg Neutrophils # Man Lymphocytes # (Manual) D-Dimer POC ABG pH POC ABG pCO2 POC ABG pO2 Sodium Potassium Chloride Carbon Dioxide BUN Creatinine Glucose POC Glucose 250 H 195 H 219 H Calcium Phosphorus Albumin TSH Urine WBC (Auto) Urine Creatinine 07/16/16 07/16/16 07/16/16 00:37 05:47 09:54 WBC RBC 3.20 L Hgb 8.6 L Hct 27.3 L MCH 27 L RDW 17.1 H Plt Count Lymph % (Auto) 4.2 L [place] % (Auto) Lymph # 0.3 L [place] # Seg Neutrophils % 89.6 H Seg Neuts % (Manual) Lymphocytes % (Manual) Seg Neutrophils # Seg Neutrophils # Man Lymphocytes # (Manual) D-Dimer POC ABG pH POC ABG pCO2 POC ABG pO2 Sodium Potassium Chloride Carbon Dioxide BUN Creatinine Glucose POC Glucose 257 H 223 H Calcium Phosphorus Albumin TSH Urine WBC (Auto) Urine Creatinine 07/16/16 07/16/16 07/16/16 09:54 11:54 17:48 WBC RBC Hgb Hct MCH RDW Plt Count Lymph % (Auto) [place] % (Auto) Lymph # [place] # Seg Neutrophils % Seg Neuts % (Manual) Lymphocytes % (Manual) Seg Neutrophils # Seg Neutrophils # Man Lymphocytes # (Manual) D-Dimer POC ABG pH POC ABG pCO2 POC ABG pO2 Sodium 148 H Potassium Chloride Carbon Dioxide 21 L BUN 146 H Creatinine 6.0 H Glucose 249 H POC Glucose 294 H 195 H Calcium 6.4 L Phosphorus Albumin TSH Urine WBC (Auto) Urine Creatinine 07/16/16 07/16/16 07/17/16 21:54 23:53 05:53 WBC RBC Hgb Hct MCH RDW Plt Count Lymph % (Auto) [place] % (Auto) Lymph # [place] # Seg Neutrophils % Seg Neuts % (Manual) Lymphocytes % (Manual) Seg Neutrophils # Seg Neutrophils # Man Lymphocytes # (Manual) D-Dimer POC ABG pH POC ABG pCO2 POC ABG pO2 Sodium Potassium Chloride Carbon Dioxide BUN Creatinine Glucose POC Glucose 161 H 171 H 208 H Calcium Phosphorus Albumin TSH Urine WBC (Auto) Urine Creatinine 07/17/16 07/17/16 07/17/16 06:52 06:52 11:28 WBC RBC 3.17 L Hgb 8.6 L Hct 26.4 L MCH 27 L RDW 17.2 H Plt Count Lymph % (Auto) [place] % (Auto) Lymph # [place] # Seg Neutrophils % Seg Neuts % (Manual) 90.0 H Lymphocytes % (Manual) 8.0 L Seg Neutrophils # Seg Neutrophils # Man Lymphocytes # (Manual) 0.6 L D-Dimer POC ABG pH POC ABG pCO2 POC ABG pO2 Sodium Potassium Chloride Carbon Dioxide BUN 87 H Creatinine 4.2 H Glucose 231 H POC Glucose 255 H Calcium 6.2 L Phosphorus 5.2 H Albumin TSH Urine WBC (Auto) Urine Creatinine 07/17/16 07/17/16 07/18/16 16:22 23:41 05:06 WBC RBC 3.25 L Hgb 8.8 L Hct 27.2 L MCH 27 L RDW 17.0 H Plt Count Lymph % (Auto) [place] % (Auto) Lymph # [place] # Seg Neutrophils % Seg Neuts % (Manual) 80.0 H Lymphocytes % (Manual) 10.0 L Seg Neutrophils # Seg Neutrophils # Man Lymphocytes # (Manual) 0.9 L D-Dimer POC ABG pH POC ABG pCO2 POC ABG pO2 Sodium Potassium Chloride Carbon Dioxide BUN Creatinine Glucose POC Glucose 263 H 195 H Calcium Phosphorus Albumin TSH Urine WBC (Auto) Urine Creatinine 07/18/16 07/18/16 07/18/16 05:06 06:52 11:52 WBC RBC Hgb Hct MCH RDW Plt Count Lymph % (Auto) [place] % (Auto) Lymph # [place] # Seg Neutrophils % Seg Neuts % (Manual) Lymphocytes % (Manual) Seg Neutrophils # Seg Neutrophils # Man Lymphocytes # (Manual) D-Dimer POC ABG pH POC ABG pCO2 POC ABG pO2 Sodium Potassium Chloride 97.7 L Carbon Dioxide BUN 51 H Creatinine 2.8 H Glucose 252 H POC Glucose 289 H 242 H Calcium 6.4 L Phosphorus Albumin TSH Urine WBC (Auto) Urine Creatinine 07/18/16 07/18/16 07/19/16 16:36 21:34 05:50 WBC RBC Hgb Hct MCH RDW Plt Count Lymph % (Auto) [place] % (Auto) Lymph # [place] # Seg Neutrophils % Seg Neuts % (Manual) Lymphocytes % (Manual) Seg Neutrophils # Seg Neutrophils # Man Lymphocytes # (Manual) D-Dimer POC ABG pH POC ABG pCO2 POC ABG pO2 Sodium Potassium Chloride Carbon Dioxide BUN Creatinine Glucose POC Glucose 221 H 210 H 273 H Calcium Phosphorus Albumin TSH Urine WBC (Auto) Urine Creatinine 07/19/16 07/19/16 07/19/16 07:09 17:06 21:56 WBC RBC Hgb Hct MCH RDW Plt Count Lymph % (Auto) [place] % (Auto) Lymph # [place] # Seg Neutrophils % Seg Neuts % (Manual) Lymphocytes % (Manual) Seg Neutrophils # Seg Neutrophils # Man Lymphocytes # (Manual) D-Dimer POC ABG pH POC ABG pCO2 POC ABG pO2 Sodium Potassium Chloride 96.2 L Carbon Dioxide BUN 81 H Creatinine 4.9 H D Glucose 260 H POC Glucose 143 H 148 H Calcium 6.0 L Phosphorus Albumin TSH Urine WBC (Auto) Urine Creatinine 07/20/16 07/20/16 07/20/16 05:21 06:29 11:01 WBC RBC Hgb Hct MCH RDW Plt Count Lymph % (Auto) [place] % (Auto) Lymph # [place] # Seg Neutrophils % Seg Neuts % (Manual) Lymphocytes % (Manual) Seg Neutrophils # Seg Neutrophils # Man Lymphocytes # (Manual) D-Dimer POC ABG pH POC ABG pCO2 POC ABG pO2 Sodium 136 L Potassium 3.4 L Chloride 94.4 L Carbon Dioxide BUN 43 H Creatinine 3.5 H Glucose 263 H POC Glucose 299 H 281 H Calcium 6.5 L Phosphorus Albumin TSH Urine WBC (Auto) Urine Creatinine 07/20/16 07/20/16 07/21/16 17:07 22:54 06:24 WBC RBC Hgb Hct MCH RDW Plt Count Lymph % (Auto) [place] % (Auto) Lymph # [place] # Seg Neutrophils % Seg Neuts % (Manual) Lymphocytes % (Manual) Seg Neutrophils # Seg Neutrophils # Man Lymphocytes # (Manual) D-Dimer POC ABG pH POC ABG pCO2 POC ABG pO2 Sodium Potassium Chloride Carbon Dioxide BUN Creatinine Glucose POC Glucose 253 H 209 H 346 H Calcium Phosphorus Albumin TSH Urine WBC (Auto) Urine Creatinine 07/21/16 07/21/16 07/21/16 07:25 15:46 21:23 WBC RBC Hgb Hct MCH RDW Plt Count Lymph % (Auto) [place] % (Auto) Lymph # [place] # Seg Neutrophils % Seg Neuts % (Manual) Lymphocytes % (Manual) Seg Neutrophils # Seg Neutrophils # Man Lymphocytes # (Manual) D-Dimer POC ABG pH POC ABG pCO2 POC ABG pO2 Sodium 133 L Potassium Chloride 90.7 L Carbon Dioxide BUN 71 H Creatinine 4.8 H Glucose 289 H POC Glucose 112 H 218 H Calcium 6.2 L Phosphorus Albumin TSH Urine WBC (Auto) Urine Creatinine 07/22/16 07/22/16 07/22/16 06:28 11:49 16:37 WBC RBC Hgb Hct MCH RDW Plt Count Lymph % (Auto) [place] % (Auto) Lymph # [place] # Seg Neutrophils % Seg Neuts % (Manual) Lymphocytes % (Manual) Seg Neutrophils # Seg Neutrophils # Man Lymphocytes # (Manual) D-Dimer POC ABG pH POC ABG pCO2 POC ABG pO2 Sodium Potassium Chloride Carbon Dioxide BUN Creatinine Glucose POC Glucose 316 H 211 H 185 H Calcium Phosphorus Albumin TSH Urine WBC (Auto) Urine Creatinine 07/22/16 20:24 WBC RBC Hgb Hct MCH RDW Plt Count Lymph % (Auto) [place] % (Auto) Lymph # [place] # Seg Neutrophils % Seg Neuts % (Manual) Lymphocytes % (Manual) Seg Neutrophils # Seg Neutrophils # Man Lymphocytes # (Manual) D-Dimer POC ABG pH POC ABG pCO2 POC ABG pO2 Sodium Potassium Chloride Carbon Dioxide BUN Creatinine Glucose POC Glucose 213 H Calcium Phosphorus Albumin TSH Urine WBC (Auto) Urine Creatinine
[2016-07-23] MEDS: APRESOLINE FEEDTUBE SCH ×3 (06:42→21:19)
[2016-07-23] MEDS: HEPARIN SUB-Q SCH ×3 (06:42→21:32)
[2016-07-23] MEDS: SYNTHROID PO SCH (06:42)
[2016-07-23] MEDS: NEURONTIN PO SCH ×2 (09:33→21:24)
[2016-07-23] MEDS: NOVOLOG SUB-Q SCH ×4 (09:33→22:22)
[2016-07-23] MEDS: NORMODYNE PO SCH ×3 (09:34→21:00)
[2016-07-23] MEDS: PEPCID PO SCH (09:34)
--- NOTE | 2016-07-23 12:27 | Progress Note ---
Assessment and Plan - Patient Problems (1) Acute respiratory failure Current Visit: Yes Status: Resolved Plan to address problem: supportive care, supplemental oxygen, nebs, aspiration precautions. (2) Dysphagia Current Visit: Yes Status: Acute Plan to address problem: GI consulted, Pending PEG placement Discussed risks and benefits with family. awaiting family decision. (3) Encephalopathy acute Current Visit: Yes Status: Chronic Plan to address problem: Metabolic: continue supportive care. (4) Acute UTI Current Visit: No Status: Acute Plan to address problem: Iv abx, supportive care (5) Bipolar disorder Current Visit: No Status: Acute Qualifiers: Active/Remission status: remission status unspecified Most recent bipolar episode type: most recent episode unspecified type Plan to address problem: psych consulted, (6) DVT prophylaxis Current Visit: No Status: Acute History Interval history: Pt lying in bed, nonverbal, no reported nursing events. Case management consulted, D/C planning s/p peg placement. No improvement overnight. Discussed care plan with daughter. Pending approval for PEG placement from family. As per family request will consult speech therapy again for evaluation. Hospitalist Physical - Constitutional Vitals: Temp Pulse Resp BP Pulse Ox 98.4 F 75 20 106/55 98 07/23/16 08:46 07/23/16 08:46 07/23/16 08:46 07/23/16 08:46 07/23/16 08:46 General appearance: Present: no acute distress, obese - Neck Neck: Present: supple - Respiratory Respiratory: bilateral: diminished - Cardiovascular Rhythm: regular Heart Sounds: Present: S1 & S2 - Extremities Extremities: no ischemia Peripheral Pulses: within normal limits - Abdominal General gastrointestinal: soft, non-distended - Integumentary Integumentary: Present: clear, dry - Psychiatric Psychiatric: no intact judgment & insight, no memory intact - Neurologic Neurologic: no gait normal Results - Labs CBC & Chem 7: 07/18/16 05:06 07/21/16 07:25 Labs: Laboratory Last Values WBC 8.6 K/mm3 (4.5-11.0) 07/18/16 05:06 RBC 3.25 M/mm3 (3.65-5.03) L 07/18/16 05:06 Hgb 8.8 gm/dl (10.1-14.3) L 07/18/16 05:06 Hct 27.2 % (30.3-42.9) L 07/18/16 05:06 MCV 84 fl (79-97) 07/18/16 05:06 MCH 27 pg (28-32) L 07/18/16 05:06 MCHC 33 % (30-34) 07/18/16 05:06 RDW 17.0 % (13.2-15.2) H 07/18/16 05:06 Plt Count 175 K/mm3 (140-440) 07/18/16 05:06 Lymph % (Auto) 4.2 % (13.4-35.0) L 07/16/16 09:54 [place]ent % (Auto) 6.1 % (0.0-7.3) 07/16/16 09:54 Eos % (Auto) 0.0 % (0.0-4.3) 07/16/16 09:54 Baso % (Auto) 0.1 % (0.0-1.8) 07/16/16 09:54 Lymph # 0.3 K/mm3 (1.2-5.4) L 07/16/16 09:54 Sargent # 0.5 K/mm3 (0.0-0.8) 07/16/16 09:54 Eos # 0.0 K/mm3 (0.0-0.4) 07/16/16 09:54 Baso # 0.0 K/mm3 (0.0-0.1) 07/16/16 09:54 Add Manual Diff Complete 07/18/16 05:06 Total Counted 100 07/18/16 05:06 Seg Neutrophils % [employer] 07/18/16 05:06 Seg Neuts % (Manual) 80.0 % (40.0-70.0) H 07/18/16 05:06 Band Neutrophils % 4.0 % 07/18/16 05:06 Lymphocytes % (Manual) 10.0 % (13.4-35.0) L 07/18/16 05:06 Reactive Lymphs % (Man) 0 % 07/18/16 05:06 Monocytes % (Manual) 6.0 % (0.0-7.3) 07/18/16 05:06 Eosinophils % (Manual) 0 % (0.0-4.3) 07/17/16 06:52 Basophils % (Manual) 0 % (0.0-1.8) 07/17/16 06:52 Metamyelocytes % 0 % 07/18/16 05:06 Myelocytes % 0 % 07/18/16 05:06 Promyelocytes % 0 % 07/18/16 05:06 Blast Cells % 0 % 07/18/16 05:06 Nucleated RBC % Not Reportable 07/18/16 05:06 Seg Neutrophils # 7.5 K/mm3 (1.8-7.7) 07/16/16 09:54 Seg Neutrophils # Man 6.9 K/mm3 (1.8-7.7) 07/18/16 05:06 Band Neutrophils # 0.3 K/mm3 07/18/16 05:06 Lymphocytes # (Manual) 0.9 K/mm3 (1.2-5.4) L 07/18/16 05:06 Abs React Lymphs (Man) 0.0 K/mm3 07/18/16 05:06 Monocytes # (Manual) 0.5 K/mm3 (0.0-0.8) 07/18/16 05:06 Eosinophils # (Manual) 0.0 K/mm3 (0.0-0.4) 07/18/16 05:06 Basophils # (Manual) 0.0 K/mm3 (0.0-0.1) 07/18/16 05:06 Metamyelocytes # 0.0 K/mm3 07/18/16 05:06 Myelocytes # 0.0 K/mm3 07/18/16 05:06 Promyelocytes # 0.0 K/mm3 07/18/16 05:06 Blast Cells # 0.0 K/mm3 07/18/16 05:06 WBC Morphology Not Reportable 07/18/16 05:06 Hypersegmented Neuts Not Reportable 07/18/16 05:06 Hyposegmented Neuts Not Reportable 07/18/16 05:06 Hypogranular Neuts Not Reportable 07/18/16 05:06 Smudge Cells Not Reportable 07/18/16 05:06 Toxic Granulation Not Reportable 07/18/16 05:06 Toxic Vacuolation Not Reportable 07/18/16 05:06 Dohle Bodies Not Reportable 07/18/16 05:06 Pelger-Huet Anomaly Not Reportable 07/18/16 05:06 Shagufta Rods Not Reportable 07/18/16 05:06 Platelet Estimate Not Reportable 07/18/16 05:06 Clumped Platelets Not Reportable 07/18/16 05:06 Plt Clumps, EDTA Not Reportable 07/18/16 05:06 Large Platelets Not Reportable 07/18/16 05:06 Giant Platelets Not Reportable 07/18/16 05:06 Platelet Satelliting Not Reportable 07/18/16 05:06 Plt Morphology Comment Not Reportable 07/18/16 05:06 RBC Morphology Not Reportable 07/18/16 05:06 Dimorphic RBCs Not Reportable 07/18/16 05:06 Polychromasia Not Reportable 07/18/16 05:06 Hypochromasia Not Reportable 07/18/16 05:06 Poikilocytosis Not Reportable 07/18/16 05:06 Anisocytosis 1+ 07/18/16 05:06 Microcytosis Not Reportable 07/18/16 05:06 Macrocytosis Not Reportable 07/18/16 05:06 Spherocytes Not Reportable 07/18/16 05:06 Pappenheimer Bodies Not Reportable 07/18/16 05:06 Sickle Cells Not Reportable 07/18/16 05:06 Target Cells Not Reportable 07/18/16 05:06 Tear Drop Cells Not Reportable 07/18/16 05:06 Ovalocytes Not Reportable 07/18/16 05:06 Helmet Cells Not Reportable 07/18/16 05:06 Pérez-Volcano Bodies Not Reportable 07/18/16 05:06 [place] Rings Not Reportable 07/18/16 05:06 Radha Cells Not Reportable 07/18/16 05:06 Bite Cells Not Reportable 07/18/16 05:06 Crenated Cell Not Reportable 07/18/16 05:06 Elliptocytes Few 07/18/16 05:06 Acanthocytes (Spur) Not Reportable 07/18/16 05:06 Rouleaux Not Reportable 07/18/16 05:06 Hemoglobin C Crystals Not Reportable 07/18/16 05:06 Schistocytes Not Reportable 07/18/16 05:06 Malaria parasites Not Reportable 07/18/16 05:06 Kaushik Bodies Not Reportable 07/18/16 05:06 Hem Pathologist Commnt No 07/18/16 05:06 PT 14.1 Sec. (12.2-14.9) 07/18/16 05:06 INR 1.10 (0.87-1.13) 07/18/16 05:06 APTT 34.8 Sec. (24.2-36.6) 07/18/16 05:06 D-Dimer 751.80 ng/mlDDU (0-234) H 07/11/16 12:22 POC ABG pH 7.529 (7.35-7.45) H 07/13/16 14:15 POC ABG pCO2 26.8 (35-45) L 07/13/16 14:15 POC ABG pO2 70 (80-105) L 07/13/16 14:15 POC ABG HCO3 22.3 07/13/16 14:15 POC ABG Total CO2 23 07/13/16 14:15 POC ABG O2 Sat 96 07/13/16 14:15 POC ABG Base Excess 0 07/13/16 14:15 FiO2 21 % 07/13/16 14:15 Sodium 133 mmol/L (137-145) L 07/21/16 07:25 Potassium 3.6 mmol/L (3.6-5.0) 07/21/16 07:25 Chloride 90.7 mmol/L (98-107) L 07/21/16 07:25 Carbon Dioxide 25 mmol/L (22-30) 07/21/16 07:25 Anion Gap 21 mmol/L 07/21/16 07:25 BUN 71 mg/dL (7-17) H 07/21/16 07:25 Creatinine 4.8 mg/dL (0.7-1.2) H 07/21/16 07:25 Estimated GFR 11 ml/min 07/21/16 07:25 BUN/Creatinine Ratio 14.79 % 07/21/16 07:25 Glucose 289 mg/dL (65-100) H 07/21/16 07:25 POC Glucose 261 (70-105) H 07/23/16 12:10 Hemoglobin A1c 5.6 % (4-6) 07/15/16 04:56 Lactic Acid 0.8 mmol/L (0.7-2.0) 07/19/16 00:37 Calcium 6.2 mg/dL (8.4-10.2) L 07/21/16 07:25 Phosphorus 5.2 mg/dL (2.5-4.5) H 07/17/16 06:52 Magnesium 1.9 mg/dL (1.7-2.3) 07/17/16 06:52 Total Bilirubin < 0.2 mg/dL (0.1-1.2) 07/10/16 06:43 AST 17 units/L (5-40) 07/10/16 06:43 ALT 9 units/L (7-56) 07/10/16 06:43 Alkaline Phosphatase 62 units/L (35-129) 07/10/16 06:43 Total Creatine Kinase 131 units/L (30-135) 07/11/16 12:22 CK-MB (CK-2) 2.0 ng/mL (0.0-4.0) 07/11/16 12:22 CK-MB (CK-2) Rel Index 1.5 (0-4) 07/11/16 12:22 Troponin T < 0.010 ng/mL (0.00-0.029) 07/11/16 12:22 Total Protein 6.7 g/dL (6.3-8.2) 07/10/16 06:43 Albumin 3.5 g/dL (3.9-5) L 07/10/16 06:43 Albumin/Globulin Ratio 1.1 % 07/10/16 06:43 TSH 8.090 mlU/mL (0.270-4.200) H 07/05/16 05:08 Urine Color Straw (Yellow) 07/06/16 01:18 Urine Turbidity Clear (Clear) 07/06/16 01:18 Urine pH 6.0 (5.0-7.0) 07/06/16 01:18 Ur Specific [place] 1.003 (1.003-1.030) 07/06/16 01:18 Urine Protein <15 mg/dl mg/dL (Negative) 07/06/16 01:18 Urine Glucose (UA) Neg mg/dL (Negative) 07/06/16 01:18 Urine Ketones Neg mg/dL (Negative) 07/06/16 01:18 Urine Blood Neg (Negative) 07/06/16 01:18 Urine Nitrite Neg (Negative) 07/06/16 01:18 Urine Bilirubin Neg (Negative) 07/06/16 01:18 Urine Urobilinogen < 2.0 mg/dL (<2.0) 07/06/16 01:18 Ur Leukocyte Esterase Mod (Negative) 07/06/16 01:18 Urine WBC (Auto) 7.0 /HPF (0.0-6.0) H 07/06/16 01:18 Urine RBC (Auto) 3.0 /HPF (0.0-6.0) 07/06/16 01:18 U Epithel Cells (Auto) 1.0 /HPF (0-13.0) 06/30/16 11:34 Urine Bacteria (Auto) 1+ /HPF (Negative) 06/30/16 11:34 Urine Eosinophils None seen (None Seen) 07/06/16 01:18 Urine Creatinine 36.6 mg/dL (0.1-20.0) H 07/06/16 01:18 Urine Microalbumin 6.5 mg/dL (0.1-34.0) 07/06/16 01:18 Microalb/Creat Ratio 177.5 ug/mg 07/06/16 01:18 Urine Sodium 28 mEq/L 07/06/16 01:18 Urine Opiates Screen Presumptive negative 06/30/16 11:34 Urine Methadone Screen Presumptive negative 06/30/16 11:34 Acetaminophen < 15.0 ug/mL (10.0-30.0) 06/30/16 12:01 Ur Barbiturates Screen Presumptive negative 06/30/16 11:34 Ur Phencyclidine Scrn Presumptive negative 06/30/16 11:34 Ur Amphetamines Screen Presumptive negative 06/30/16 11:34 U Benzodiazepines Scrn Presumptive negative 06/30/16 11:34 Urine Cocaine Screen Presumptive negative 06/30/16 11:34 U Marijuana (THC) Screen Presumptive negative 06/30/16 11:34 Drugs of Abuse Note Disclamer 06/30/16 11:34 Plasma/Serum Alcohol < 0.01 gm% (0-0.07) 06/30/16 12:01 Hepatitis A IgM Ab -1 (NonReactive) 07/16/16 19:08 Hep Bs Antigen Non-reactive (Negative) 07/16/16 19:08 Hep B Core IgM Ab Non-reactive (NonReactive) 07/16/16 19:08 Hepatitis C Antibody Non-reactive (NonReactive) 07/16/16 19:08
--- NOTE | 2016-07-23 15:00 | Progress Note ---
Assessment and Plan No change in patients general condition.Patient sleeping at this time., Sleeping on 2 litres O2. O2 satuaration 100% on 2 litres O2.No acute respiratory distress. - Patient Problems (1) Angioedema Current Visit: Yes Status: Acute Plan to address problem: Improved. (2) GABRIELA (acute kidney injury) Current Visit: Yes Status: Acute Plan to address problem: Patient is on dialysis. Mangement as per nephrology. (3) Encephalopathy acute Current Visit: Yes Status: Chronic Plan to address problem: Management as per primary care. (4) Hypertension Current Visit: Yes Status: Acute Plan to address problem: Management as per primary care. (5) Diabetes Current Visit: No Status: Acute Qualifiers: Diabetes mellitus type: type 2 Diabetes mellitus complication status: with kidney complications Diabetes mellitus complication detail: with chronic kidney disease Plan to address problem: Management as per primary care. (6) Bipolar disorder Current Visit: No Status: Acute Qualifiers: Active/Remission status: remission status unspecified Most recent bipolar episode type: most recent episode unspecified type Plan to address problem: Management as per primary care and psychiatry. Subjective Date of service: 07/23/16 Principal diagnosis: Acute Respiratory Failure; Angioedema Interval history: No change in patients general condition.. Patient sleeping at this time., Patient sleeping on 2 litres O2. O2 satuaration 98%% on 2 litres O2.No acute respiratory distress. Objective Vital Signs - 12hr 07/23/16 07/23/16 08:46 14:33 Temperature 98.4 F Pulse Rate [ 75 Left Radial] Respiratory 20 Rate Blood Pressure 106/55 117/54 [Right Arm] O2 Sat by Pulse 98 Oximetry Constitutional: no acute distress, lethargic Eyes: non-icteric ENT: oropharynx moist Neck: supple, no lymphadenopathy Effort: normal Ascultation: Bilateral: diminished breath sounds Cardiovascular: regular rate and rhythm Gastrointestinal: normoactive bowel sounds, soft, non-tender, non-distended Integumentary: normal Extremities: no cyanosis, no edema, pulses normal, no ischemia or petechiae Neurologic: non-focal exam (grossly), pupils equal and round, CN II-XII normal Psychiatric: anxious CBC and BMP: 07/18/16 05:06 07/21/16 07:25 ABG, PT/INR, D-dimer: ABG POC ABG pH 7.529 (7.35-7.45) H 07/13/16 14:15 POC ABG pCO2 26.8 (35-45) L 07/13/16 14:15 POC ABG pO2 70 (80-105) L 07/13/16 14:15 POC ABG HCO3 22.3 07/13/16 14:15 POC ABG Total CO2 23 07/13/16 14:15 POC ABG O2 Sat 96 07/13/16 14:15 PT/INR, D-dimer PT 14.1 Sec. (12.2-14.9) 07/18/16 05:06 INR 1.10 (0.87-1.13) 07/18/16 05:06 D-Dimer 751.80 ng/mlDDU (0-234) H 07/11/16 12:22 Abnormal lab findings: Abnormal Labs 07/03/16 07/03/16 07/04/16 14:34 14:34 06:21 WBC 3.9 L RBC 3.16 L 3.04 L Hgb 8.5 L 8.0 L Hct 26.8 L 25.6 L MCH 27 L 26 L RDW 16.5 H 16.2 H Plt Count Lymph % (Auto) [place] % (Auto) 10.7 H 10.7 H Lymph # 1.0 L [place] # Seg Neutrophils % Seg Neuts % (Manual) Lymphocytes % (Manual) Seg Neutrophils # Seg Neutrophils # Man Lymphocytes # (Manual) D-Dimer POC ABG pH POC ABG pCO2 POC ABG pO2 Sodium Potassium Chloride 107.6 H Carbon Dioxide BUN 27 H Creatinine 2.6 H Glucose POC Glucose Calcium 8.0 L Phosphorus Albumin TSH Urine WBC (Auto) Urine Creatinine 07/04/16 07/04/16 07/04/16 06:21 11:30 16:33 WBC RBC Hgb Hct MCH RDW Plt Count Lymph % (Auto) [place] % (Auto) Lymph # [place] # Seg Neutrophils % Seg Neuts % (Manual) Lymphocytes % (Manual) Seg Neutrophils # Seg Neutrophils # Man Lymphocytes # (Manual) D-Dimer POC ABG pH POC ABG pCO2 POC ABG pO2 Sodium Potassium Chloride 107.4 H Carbon Dioxide 21 L BUN 27 H Creatinine 2.7 H Glucose POC Glucose 110 H 106 H Calcium 7.8 L Phosphorus Albumin TSH Urine WBC (Auto) Urine Creatinine 07/05/16 07/05/16 07/05/16 05:08 05:08 05:08 WBC 4.0 L RBC 2.87 L Hgb 7.7 L Hct 24.2 L MCH 27 L RDW 16.0 H Plt Count Lymph % (Auto) [place] % (Auto) Lymph # [place] # Seg Neutrophils % Seg Neuts % (Manual) Lymphocytes % (Manual) Seg Neutrophils # Seg Neutrophils # Man Lymphocytes # (Manual) D-Dimer POC ABG pH POC ABG pCO2 POC ABG pO2 Sodium Potassium Chloride Carbon Dioxide 21 L BUN 32 H Creatinine 3.7 H Glucose POC Glucose Calcium 7.8 L Phosphorus Albumin TSH 8.090 H Urine WBC (Auto) Urine Creatinine 07/05/16 07/06/16 07/06/16 11:45 01:18 01:18 WBC RBC Hgb 8.3 L Hct 25.9 L MCH RDW Plt Count Lymph % (Auto) [place] % (Auto) Lymph # [place] # Seg Neutrophils % Seg Neuts % (Manual) Lymphocytes % (Manual) Seg Neutrophils # Seg Neutrophils # Man Lymphocytes # (Manual) D-Dimer POC ABG pH POC ABG pCO2 POC ABG pO2 Sodium Potassium Chloride Carbon Dioxide BUN Creatinine Glucose POC Glucose Calcium Phosphorus Albumin TSH Urine WBC (Auto) 7.0 H Urine Creatinine 36.6 H 07/06/16 07/06/16 07/06/16 05:55 05:55 16:07 WBC 3.0 L RBC 2.79 L Hgb 7.5 L Hct 23.5 L MCH 27 L RDW 16.5 H Plt Count Lymph % (Auto) [place] % (Auto) Lymph # [place] # Seg Neutrophils % Seg Neuts % (Manual) Lymphocytes % (Manual) Seg Neutrophils # Seg Neutrophils # Man Lymphocytes # (Manual) D-Dimer POC ABG pH POC ABG pCO2 POC ABG pO2 Sodium Potassium Chloride 109.3 H Carbon Dioxide 20 L BUN 32 H Creatinine 3.4 H Glucose POC Glucose 117 H Calcium 7.5 L Phosphorus Albumin TSH Urine WBC (Auto) Urine Creatinine 07/07/16 07/07/16 07/08/16 06:19 16:13 00:09 WBC RBC Hgb Hct MCH RDW Plt Count Lymph % (Auto) [place] % (Auto) Lymph # [place] # Seg Neutrophils % Seg Neuts % (Manual) Lymphocytes % (Manual) Seg Neutrophils # Seg Neutrophils # Man Lymphocytes # (Manual) D-Dimer POC ABG pH POC ABG pCO2 POC ABG pO2 Sodium Potassium Chloride 111.1 H Carbon Dioxide 20 L BUN 31 H Creatinine 3.1 H Glucose POC Glucose 108 H 134 H Calcium 8.0 L Phosphorus Albumin TSH Urine WBC (Auto) Urine Creatinine 07/08/16 07/08/16 07/08/16 11:39 16:31 21:22 WBC RBC Hgb Hct MCH RDW Plt Count Lymph % (Auto) [place] % (Auto) Lymph # [place] # Seg Neutrophils % Seg Neuts % (Manual) Lymphocytes % (Manual) Seg Neutrophils # Seg Neutrophils # Man Lymphocytes # (Manual) D-Dimer POC ABG pH POC ABG pCO2 POC ABG pO2 Sodium Potassium Chloride Carbon Dioxide BUN Creatinine Glucose POC Glucose 119 H 130 H 152 H Calcium Phosphorus Albumin TSH Urine WBC (Auto) Urine Creatinine 07/09/16 07/09/16 07/09/16 05:52 05:52 06:02 WBC RBC 3.55 L Hgb 9.4 L Hct MCH 27 L RDW 17.1 H Plt Count Lymph % (Auto) [place] % (Auto) Lymph # [place] # Seg Neutrophils % Seg Neuts % (Manual) Lymphocytes % (Manual) Seg Neutrophils # Seg Neutrophils # Man Lymphocytes # (Manual) D-Dimer POC ABG pH POC ABG pCO2 POC ABG pO2 Sodium 147 H Potassium 5.4 H Chloride 112.8 H Carbon Dioxide 21 L BUN 30 H Creatinine 2.5 H Glucose 21 L* POC Glucose < 40 L Calcium Phosphorus Albumin TSH Urine WBC (Auto) Urine Creatinine 07/09/16 07/09/16 07/10/16 11:31 16:50 05:23 WBC RBC Hgb Hct MCH RDW Plt Count Lymph % (Auto) [place] % (Auto) Lymph # [place] # Seg Neutrophils % Seg Neuts % (Manual) Lymphocytes % (Manual) Seg Neutrophils # Seg Neutrophils # Man Lymphocytes # (Manual) D-Dimer POC ABG pH POC ABG pCO2 POC ABG pO2 Sodium Potassium Chloride Carbon Dioxide BUN Creatinine Glucose POC Glucose 114 H 149 H < 40 L Calcium Phosphorus Albumin TSH Urine WBC (Auto) Urine Creatinine 07/10/16 07/10/16 07/10/16 06:03 06:43 06:43 WBC RBC 2.90 L Hgb 7.7 L Hct 25.0 L MCH 27 L RDW 17.0 H Plt Count Lymph % (Auto) [place] % (Auto) 10.4 H Lymph # 1.1 L [place] # Seg Neutrophils % Seg Neuts % (Manual) Lymphocytes % (Manual) Seg Neutrophils # Seg Neutrophils # Man Lymphocytes # (Manual) D-Dimer POC ABG pH POC ABG pCO2 POC ABG pO2 Sodium 148 H Potassium 5.1 H Chloride 111.7 H Carbon Dioxide 20 L BUN 31 H Creatinine 2.4 H Glucose POC Glucose 211 H Calcium 8.0 L Phosphorus Albumin 3.5 L TSH Urine WBC (Auto) Urine Creatinine 07/10/16 07/11/16 07/11/16 14:55 05:37 05:47 WBC RBC Hgb 7.9 L Hct 25.5 L MCH RDW Plt Count Lymph % (Auto) [place] % (Auto) Lymph # [place] # Seg Neutrophils % Seg Neuts % (Manual) Lymphocytes % (Manual) Seg Neutrophils # Seg Neutrophils # Man Lymphocytes # (Manual) D-Dimer POC ABG pH POC ABG pCO2 POC ABG pO2 Sodium Potassium Chloride Carbon Dioxide BUN Creatinine Glucose POC Glucose < 40 L > 500 H Calcium Phosphorus Albumin TSH Urine WBC (Auto) Urine Creatinine 07/11/16 07/11/16 07/11/16 05:56 07:42 07:48 WBC RBC Hgb Hct MCH RDW Plt Count Lymph % (Auto) [place] % (Auto) Lymph # [place] # Seg Neutrophils % Seg Neuts % (Manual) Lymphocytes % (Manual) Seg Neutrophils # Seg Neutrophils # Man Lymphocytes # (Manual) D-Dimer POC ABG pH POC ABG pCO2 POC ABG pO2 Sodium Potassium Chloride Carbon Dioxide BUN Creatinine Glucose POC Glucose 262 H 56 L 54 L Calcium Phosphorus Albumin TSH Urine WBC (Auto) Urine Creatinine 07/11/16 07/11/16 07/11/16 08:34 08:50 09:53 WBC RBC Hgb Hct MCH RDW Plt Count Lymph % (Auto) [place] % (Auto) Lymph # [place] # Seg Neutrophils % Seg Neuts % (Manual) Lymphocytes % (Manual) Seg Neutrophils # Seg Neutrophils # Man Lymphocytes # (Manual) D-Dimer POC ABG pH POC ABG pCO2 31.1 L POC ABG pO2 108 H Sodium Potassium Chloride Carbon Dioxide BUN Creatinine Glucose POC Glucose 110 H 68 L Calcium Phosphorus Albumin TSH Urine WBC (Auto) Urine Creatinine 07/11/16 07/11/16 07/11/16 11:48 12:22 12:22 WBC 11.6 H RBC Hgb Hct MCH 27 L RDW 17.2 H Plt Count Lymph % (Auto) [place] % (Auto) Lymph # [place] # Seg Neutrophils % Seg Neuts % (Manual) 91.0 H Lymphocytes % (Manual) 5.0 L Seg Neutrophils # 10.8 H Seg Neutrophils # Man 10.6 H Lymphocytes # (Manual) 0.6 L D-Dimer 751.80 H POC ABG pH POC ABG pCO2 POC ABG pO2 Sodium Potassium Chloride Carbon Dioxide BUN Creatinine Glucose POC Glucose 118 H Calcium Phosphorus Albumin TSH Urine WBC (Auto) Urine Creatinine 07/11/16 07/11/16 07/11/16 12:22 12:29 15:23 WBC RBC Hgb Hct MCH RDW Plt Count Lymph % (Auto) [place] % (Auto) Lymph # [place] # Seg Neutrophils % Seg Neuts % (Manual) Lymphocytes % (Manual) Seg Neutrophils # Seg Neutrophils # Man Lymphocytes # (Manual) D-Dimer POC ABG pH POC ABG pCO2 28.4 L POC ABG pO2 Sodium Potassium 6.1 H* Chloride 109.4 H Carbon Dioxide 18 L BUN 30 H Creatinine 2.1 H Glucose 126 H POC Glucose 204 H Calcium Phosphorus Albumin TSH Urine WBC (Auto) Urine Creatinine 07/11/16 07/11/16 07/11/16 17:27 17:55 21:42 WBC RBC Hgb Hct MCH RDW Plt Count Lymph % (Auto) [place] % (Auto) Lymph # [place] # Seg Neutrophils % Seg Neuts % (Manual) Lymphocytes % (Manual) Seg Neutrophils # Seg Neutrophils # Man Lymphocytes # (Manual) D-Dimer POC ABG pH POC ABG pCO2 POC ABG pO2 Sodium 146 H Potassium 6.5 H* Chloride 109.7 H Carbon Dioxide 20 L BUN 32 H Creatinine 2.4 H Glucose 167 H POC Glucose 433 H 142 H Calcium Phosphorus Albumin TSH Urine WBC (Auto) Urine Creatinine 07/12/16 07/12/16 07/12/16 04:34 04:34 05:22 WBC 14.0 H RBC Hgb Hct MCH 27 L RDW 17.6 H Plt Count 113 L Lymph % (Auto) [place] % (Auto) Lymph # [place] # Seg Neutrophils % Seg Neuts % (Manual) 87.0 H Lymphocytes % (Manual) 11.0 L Seg Neutrophils # Seg Neutrophils # Man 12.2 H Lymphocytes # (Manual) D-Dimer POC ABG pH 7.452 H POC ABG pCO2 29.6 L POC ABG pO2 Sodium Potassium 6.8 H* Chloride 110.2 H Carbon Dioxide 16 L BUN 43 H Creatinine 2.9 H Glucose 113 H POC Glucose Calcium Phosphorus Albumin TSH Urine WBC (Auto) Urine Creatinine 07/12/16 07/12/16 07/12/16 13:24 17:28 21:11 WBC RBC Hgb Hct MCH RDW Plt Count Lymph % (Auto) [place] % (Auto) Lymph # [place] # Seg Neutrophils % Seg Neuts % (Manual) Lymphocytes % (Manual) Seg Neutrophils # Seg Neutrophils # Man Lymphocytes # (Manual) D-Dimer POC ABG pH POC ABG pCO2 POC ABG pO2 Sodium 150 H Potassium Chloride 108.9 H Carbon Dioxide 21 L BUN 52 H Creatinine 3.7 H Glucose 143 H POC Glucose 148 H 134 H Calcium 8.0 L Phosphorus Albumin TSH Urine WBC (Auto) Urine Creatinine 07/12/16 07/13/16 07/13/16 21:50 04:40 04:40 WBC 14.0 H RBC 3.50 L Hgb 9.3 L Hct 29.3 L MCH 27 L RDW 17.3 H Plt Count Lymph % (Auto) 4.9 L [place] % (Auto) Lymph # 0.7 L [place] # Seg Neutrophils % 90.0 H Seg Neuts % (Manual) 93.0 H Lymphocytes % (Manual) 5.0 L Seg Neutrophils # 12.6 H Seg Neutrophils # Man 13.0 H Lymphocytes # (Manual) 0.7 L D-Dimer POC ABG pH POC ABG pCO2 POC ABG pO2 Sodium 151 H Potassium Chloride 109.3 H Carbon Dioxide BUN 59 H Creatinine 4.0 H Glucose 63 L POC Glucose 156 H Calcium 7.7 L Phosphorus Albumin TSH Urine WBC (Auto) Urine Creatinine 07/13/16 07/13/16 07/13/16 06:10 06:40 08:03 WBC RBC Hgb Hct MCH RDW Plt Count Lymph % (Auto) [place] % (Auto) Lymph # [place] # Seg Neutrophils % Seg Neuts % (Manual) Lymphocytes % (Manual) Seg Neutrophils # Seg Neutrophils # Man Lymphocytes # (Manual) D-Dimer POC ABG pH POC ABG pCO2 POC ABG pO2 Sodium Potassium Chloride Carbon Dioxide BUN Creatinine Glucose POC Glucose 68 L 176 H 141 H Calcium Phosphorus Albumin TSH Urine WBC (Auto) Urine Creatinine 07/13/16 07/13/16 07/13/16 09:17 12:30 14:15 WBC RBC Hgb Hct MCH RDW Plt Count Lymph % (Auto) [place] % (Auto) Lymph # [place] # Seg Neutrophils % Seg Neuts % (Manual) Lymphocytes % (Manual) Seg Neutrophils # Seg Neutrophils # Man Lymphocytes # (Manual) D-Dimer POC ABG pH 7.475 H 7.529 H POC ABG pCO2 33.4 L 26.8 L POC ABG pO2 110 H 70 L Sodium Potassium Chloride Carbon Dioxide BUN Creatinine Glucose POC Glucose 177 H Calcium Phosphorus Albumin TSH Urine WBC (Auto) Urine Creatinine 07/13/16 07/13/16 07/13/16 15:28 17:57 22:10 WBC RBC Hgb Hct MCH RDW Plt Count Lymph % (Auto) [place] % (Auto) Lymph # [place] # Seg Neutrophils % Seg Neuts % (Manual) Lymphocytes % (Manual) Seg Neutrophils # Seg Neutrophils # Man Lymphocytes # (Manual) D-Dimer POC ABG pH POC ABG pCO2 POC ABG pO2 Sodium Potassium Chloride Carbon Dioxide BUN Creatinine Glucose POC Glucose 122 H 166 H 197 H Calcium Phosphorus Albumin TSH Urine WBC (Auto) Urine Creatinine 07/14/16 07/14/16 07/14/16 02:00 04:21 04:21 WBC RBC 3.01 L Hgb 8.1 L Hct 25.3 L MCH 27 L RDW 17.9 H Plt Count Lymph % (Auto) 6.1 L [place] % (Auto) Lymph # 0.5 L [place] # Seg Neutrophils % 89.9 H Seg Neuts % (Manual) Lymphocytes % (Manual) Seg Neutrophils # Seg Neutrophils # Man Lymphocytes # (Manual) D-Dimer POC ABG pH POC ABG pCO2 POC ABG pO2 Sodium 150 H Potassium Chloride 107.3 H Carbon Dioxide 21 L BUN 82 H Creatinine 4.8 H Glucose 176 H POC Glucose 166 H Calcium 6.8 L Phosphorus Albumin TSH Urine WBC (Auto) Urine Creatinine 07/14/16 07/14/16 07/14/16 05:32 09:42 22:32 WBC RBC Hgb Hct MCH RDW Plt Count Lymph % (Auto) [place] % (Auto) Lymph # [place] # Seg Neutrophils % Seg Neuts % (Manual) Lymphocytes % (Manual) Seg Neutrophils # Seg Neutrophils # Man Lymphocytes # (Manual) D-Dimer POC ABG pH POC ABG pCO2 POC ABG pO2 Sodium Potassium Chloride Carbon Dioxide BUN Creatinine Glucose POC Glucose 202 H 216 H 191 H Calcium Phosphorus Albumin TSH Urine WBC (Auto) Urine Creatinine 07/15/16 07/15/16 07/15/16 04:46 04:56 04:56 WBC RBC 3.04 L Hgb 8.2 L Hct 25.8 L MCH 27 L RDW 17.3 H Plt Count Lymph % (Auto) 4.2 L [place] % (Auto) 11.8 H Lymph # 0.4 L [place] # 1.1 H Seg Neutrophils % 83.9 H Seg Neuts % (Manual) Lymphocytes % (Manual) Seg Neutrophils # Seg Neutrophils # Man Lymphocytes # (Manual) D-Dimer POC ABG pH POC ABG pCO2 POC ABG pO2 Sodium 147 H Potassium 3.4 L Chloride Carbon Dioxide 20 L BUN 109 H Creatinine 5.2 H Glucose 242 H POC Glucose 275 H Calcium 6.3 L Phosphorus Albumin TSH Urine WBC (Auto) Urine Creatinine 07/15/16 07/15/16 07/15/16 11:32 16:52 20:41 WBC RBC Hgb Hct MCH RDW Plt Count Lymph % (Auto) [place] % (Auto) Lymph # [place] # Seg Neutrophils % Seg Neuts % (Manual) Lymphocytes % (Manual) Seg Neutrophils # Seg Neutrophils # Man Lymphocytes # (Manual) D-Dimer POC ABG pH POC ABG pCO2 POC ABG pO2 Sodium Potassium Chloride Carbon Dioxide BUN Creatinine Glucose POC Glucose 250 H 195 H 219 H Calcium Phosphorus Albumin TSH Urine WBC (Auto) Urine Creatinine 07/16/16 07/16/16 07/16/16 00:37 05:47 09:54 WBC RBC 3.20 L Hgb 8.6 L Hct 27.3 L MCH 27 L RDW 17.1 H Plt Count Lymph % (Auto) 4.2 L [place] % (Auto) Lymph # 0.3 L [place] # Seg Neutrophils % 89.6 H Seg Neuts % (Manual) Lymphocytes % (Manual) Seg Neutrophils # Seg Neutrophils # Man Lymphocytes # (Manual) D-Dimer POC ABG pH POC ABG pCO2 POC ABG pO2 Sodium Potassium Chloride Carbon Dioxide BUN Creatinine Glucose POC Glucose 257 H 223 H Calcium Phosphorus Albumin TSH Urine WBC (Auto) Urine Creatinine 07/16/16 07/16/16 07/16/16 09:54 11:54 17:48 WBC RBC Hgb Hct MCH RDW Plt Count Lymph % (Auto) [place] % (Auto) Lymph # [place] # Seg Neutrophils % Seg Neuts % (Manual) Lymphocytes % (Manual) Seg Neutrophils # Seg Neutrophils # Man Lymphocytes # (Manual) D-Dimer POC ABG pH POC ABG pCO2 POC ABG pO2 Sodium 148 H Potassium Chloride Carbon Dioxide 21 L BUN 146 H Creatinine 6.0 H Glucose 249 H POC Glucose 294 H 195 H Calcium 6.4 L Phosphorus Albumin TSH Urine WBC (Auto) Urine Creatinine 07/16/16 07/16/16 07/17/16 21:54 23:53 05:53 WBC RBC Hgb Hct MCH RDW Plt Count Lymph % (Auto) [place] % (Auto) Lymph # [place] # Seg Neutrophils % Seg Neuts % (Manual) Lymphocytes % (Manual) Seg Neutrophils # Seg Neutrophils # Man Lymphocytes # (Manual) D-Dimer POC ABG pH POC ABG pCO2 POC ABG pO2 Sodium Potassium Chloride Carbon Dioxide BUN Creatinine Glucose POC Glucose 161 H 171 H 208 H Calcium Phosphorus Albumin TSH Urine WBC (Auto) Urine Creatinine 07/17/16 07/17/16 07/17/16 06:52 06:52 11:28 WBC RBC 3.17 L Hgb 8.6 L Hct 26.4 L MCH 27 L RDW 17.2 H Plt Count Lymph % (Auto) [place] % (Auto) Lymph # [place] # Seg Neutrophils % Seg Neuts % (Manual) 90.0 H Lymphocytes % (Manual) 8.0 L Seg Neutrophils # Seg Neutrophils # Man Lymphocytes # (Manual) 0.6 L D-Dimer POC ABG pH POC ABG pCO2 POC ABG pO2 Sodium Potassium Chloride Carbon Dioxide BUN 87 H Creatinine 4.2 H Glucose 231 H POC Glucose 255 H Calcium 6.2 L Phosphorus 5.2 H Albumin TSH Urine WBC (Auto) Urine Creatinine 07/17/16 07/17/16 07/18/16 16:22 23:41 05:06 WBC RBC 3.25 L Hgb 8.8 L Hct 27.2 L MCH 27 L RDW 17.0 H Plt Count Lymph % (Auto) [place] % (Auto) Lymph # [place] # Seg Neutrophils % Seg Neuts % (Manual) 80.0 H Lymphocytes % (Manual) 10.0 L Seg Neutrophils # Seg Neutrophils # Man Lymphocytes # (Manual) 0.9 L D-Dimer POC ABG pH POC ABG pCO2 POC ABG pO2 Sodium Potassium Chloride Carbon Dioxide BUN Creatinine Glucose POC Glucose 263 H 195 H Calcium Phosphorus Albumin TSH Urine WBC (Auto) Urine Creatinine 07/18/16 07/18/16 07/18/16 05:06 06:52 11:52 WBC RBC Hgb Hct MCH RDW Plt Count Lymph % (Auto) [place] % (Auto) Lymph # [place] # Seg Neutrophils % Seg Neuts % (Manual) Lymphocytes % (Manual) Seg Neutrophils # Seg Neutrophils # Man Lymphocytes # (Manual) D-Dimer POC ABG pH POC ABG pCO2 POC ABG pO2 Sodium Potassium Chloride 97.7 L Carbon Dioxide BUN 51 H Creatinine 2.8 H Glucose 252 H POC Glucose 289 H 242 H Calcium 6.4 L Phosphorus Albumin TSH Urine WBC (Auto) Urine Creatinine 07/18/16 07/18/16 07/19/16 16:36 21:34 05:50 WBC RBC Hgb Hct MCH RDW Plt Count Lymph % (Auto) [place] % (Auto) Lymph # [place] # Seg Neutrophils % Seg Neuts % (Manual) Lymphocytes % (Manual) Seg Neutrophils # Seg Neutrophils # Man Lymphocytes # (Manual) D-Dimer POC ABG pH POC ABG pCO2 POC ABG pO2 Sodium Potassium Chloride Carbon Dioxide BUN Creatinine Glucose POC Glucose 221 H 210 H 273 H Calcium Phosphorus Albumin TSH Urine WBC (Auto) Urine Creatinine 07/19/16 07/19/16 07/19/16 07:09 17:06 21:56 WBC RBC Hgb Hct MCH RDW Plt Count Lymph % (Auto) [place] % (Auto) Lymph # [place] # Seg Neutrophils % Seg Neuts % (Manual) Lymphocytes % (Manual) Seg Neutrophils # Seg Neutrophils # Man Lymphocytes # (Manual) D-Dimer POC ABG pH POC ABG pCO2 POC ABG pO2 Sodium Potassium Chloride 96.2 L Carbon Dioxide BUN 81 H Creatinine 4.9 H D Glucose 260 H POC Glucose 143 H 148 H Calcium 6.0 L Phosphorus Albumin TSH Urine WBC (Auto) Urine Creatinine 07/20/16 07/20/16 07/20/16 05:21 06:29 11:01 WBC RBC Hgb Hct MCH RDW Plt Count Lymph % (Auto) [place] % (Auto) Lymph # [place] # Seg Neutrophils % Seg Neuts % (Manual) Lymphocytes % (Manual) Seg Neutrophils # Seg Neutrophils # Man Lymphocytes # (Manual) D-Dimer POC ABG pH POC ABG pCO2 POC ABG pO2 Sodium 136 L Potassium 3.4 L Chloride 94.4 L Carbon Dioxide BUN 43 H Creatinine 3.5 H Glucose 263 H POC Glucose 299 H 281 H Calcium 6.5 L Phosphorus Albumin TSH Urine WBC (Auto) Urine Creatinine 07/20/16 07/20/16 07/21/16 17:07 22:54 06:24 WBC RBC Hgb Hct MCH RDW Plt Count Lymph % (Auto) [place] % (Auto) Lymph # [place] # Seg Neutrophils % Seg Neuts % (Manual) Lymphocytes % (Manual) Seg Neutrophils # Seg Neutrophils # Man Lymphocytes # (Manual) D-Dimer POC ABG pH POC ABG pCO2 POC ABG pO2 Sodium Potassium Chloride Carbon Dioxide BUN Creatinine Glucose POC Glucose 253 H 209 H 346 H Calcium Phosphorus Albumin TSH Urine WBC (Auto) Urine Creatinine 07/21/16 07/21/16 07/21/16 07:25 15:46 21:23 WBC RBC Hgb Hct MCH RDW Plt Count Lymph % (Auto) [place] % (Auto) Lymph # [place] # Seg Neutrophils % Seg Neuts % (Manual) Lymphocytes % (Manual) Seg Neutrophils # Seg Neutrophils # Man Lymphocytes # (Manual) D-Dimer POC ABG pH POC ABG pCO2 POC ABG pO2 Sodium 133 L Potassium Chloride 90.7 L Carbon Dioxide BUN 71 H Creatinine 4.8 H Glucose 289 H POC Glucose 112 H 218 H Calcium 6.2 L Phosphorus Albumin TSH Urine WBC (Auto) Urine Creatinine 07/22/16 07/22/16 07/22/16 06:28 11:49 16:37 WBC RBC Hgb Hct MCH RDW Plt Count Lymph % (Auto) [place] % (Auto) Lymph # [place] # Seg Neutrophils % Seg Neuts % (Manual) Lymphocytes % (Manual) Seg Neutrophils # Seg Neutrophils # Man Lymphocytes # (Manual) D-Dimer POC ABG pH POC ABG pCO2 POC ABG pO2 Sodium Potassium Chloride Carbon Dioxide BUN Creatinine Glucose POC Glucose 316 H 211 H 185 H Calcium Phosphorus Albumin TSH Urine WBC (Auto) Urine Creatinine 07/22/16 07/23/16 07/23/16 20:24 05:19 12:10 WBC RBC Hgb Hct MCH RDW Plt Count Lymph % (Auto) [place] % (Auto) Lymph # [place] # Seg Neutrophils % Seg Neuts % (Manual) Lymphocytes % (Manual) Seg Neutrophils # Seg Neutrophils # Man Lymphocytes # (Manual) D-Dimer POC ABG pH POC ABG pCO2 POC ABG pO2 Sodium Potassium Chloride Carbon Dioxide BUN Creatinine Glucose POC Glucose 213 H 319 H 261 H Calcium Phosphorus Albumin TSH Urine WBC (Auto) Urine Creatinine
[2016-07-23] MEDS: NACL 0.9% 1000 ML 1,000 ML IV SCH (21:03)
[2016-07-24] MEDS: SYNTHROID PO SCH (05:49)
[2016-07-24] MEDS: APRESOLINE FEEDTUBE SCH ×3 (05:49→23:36)
[2016-07-24 06:34] LABS: BUN/Creatinine Ratio 16.79; Calcium 6.2 mg/dL (8.4-10.2); Chloride 98.3 mmol/L (98-107); Potassium 3.6 mmol/L (3.6-5.0)
[2016-07-24] MEDS: NORMODYNE PO SCH ×3 (08:30→23:34)
[2016-07-24] MEDS: HEPARIN SUB-Q SCH ×3 (09:05→23:42)
[2016-07-24] MEDS: NOVOLOG SUB-Q SCH ×4 (09:11→23:35)
[2016-07-24] MEDS: NEURONTIN PO SCH ×2 (11:59→23:41)
[2016-07-24] MEDS: PEPCID PO SCH ×2 (11:59→16:12)
[2016-07-24] MEDS: HEPARIN IV PRN (14:10)
--- NOTE | 2016-07-24 17:18 | Progress Note ---
Assessment and Plan - Patient Problems (1) GABRIELA (acute kidney injury) Current Visit: Yes Status: Acute Plan to address problem: GABRIELA, non oliguric, dialysis dependent Will need to change vas cath to permacath, will consult vascular Keep well hydrated Monitor for recovry of renal function (2) Chronic renal insufficiency Current Visit: Yes Status: Acute Subjective Date of service: 07/24/16 Principal diagnosis: Acute Respiratory Failure; Angioedema Interval history: No acute events reported Discussed with staff auditor Just returned from dialysis, UF 1 litre Objective - Exam Narrative Exam: Middle-aged female in NAD HEENT normocephalic/atraumatic pink conjunctiva anicteric sclera, Neck is supple no JVD trachea central, Chest is bilateral coarse breath sound equal chest expansion, Heart S1-S2 regular rate and rhythm, Abdomen is soft nontender no organomegaly, Extremities no edema cyanosis or clubbing, Neuro Alert, awake and follows commands - Vital Signs Vital signs: Vital Signs - 12hr 07/24/16 07/24/16 07/24/16 07:30 08:30 11:10 Temperature 97.6 F 98.4 F Pulse Rate 72 74 Pulse Rate [ 72 72 Right Radial] Respiratory 16 16 20 Rate Blood Pressure 119/56 123/57 Blood Pressure 119/56 [Right Arm] O2 Sat by Pulse 96 Oximetry 07/24/16 07/24/16 07/24/16 11:20 11:30 11:45 Temperature Pulse Rate 73 74 76 Pulse Rate [ Right Radial] Respiratory Rate Blood Pressure 131/59 128/60 119/59 Blood Pressure [Right Arm] O2 Sat by Pulse Oximetry 07/24/16 07/24/16 07/24/16 12:00 12:15 12:30 Temperature Pulse Rate 76 78 76 Pulse Rate [ Right Radial] Respiratory Rate Blood Pressure 130/58 127/57 129/55 Blood Pressure [Right Arm] O2 Sat by Pulse Oximetry 07/24/16 07/24/16 07/24/16 12:45 13:00 13:15 Temperature Pulse Rate 77 75 73 Pulse Rate [ Right Radial] Respiratory Rate Blood Pressure 123/53 129/57 130/59 Blood Pressure [Right Arm] O2 Sat by Pulse Oximetry 07/24/16 07/24/16 07/24/16 13:30 13:45 14:00 Temperature Pulse Rate 75 78 73 Pulse Rate [ Right Radial] Respiratory Rate Blood Pressure 126/58 122/53 136/61 Blood Pressure [Right Arm] O2 Sat by Pulse Oximetry 07/24/16 07/24/16 07/24/16 14:10 14:15 16:13 Temperature 98.0 F Pulse Rate 78 72 80 Pulse Rate [ Right Radial] Respiratory 20 Rate Blood Pressure 122/53 136/61 133/59 Blood Pressure [Right Arm] O2 Sat by Pulse Oximetry 07/24/16 16:30 Temperature 98.8 F Pulse Rate Pulse Rate [ 80 Right Radial] Respiratory 24 Rate Blood Pressure Blood Pressure 133/59 [Right Arm] O2 Sat by Pulse Oximetry - Lab 07/18/16 05:06 07/24/16 05:53 Most recent lab results Calcium 6.2 mg/dL (8.4-10.2) L 07/24/16 05:53 Phosphorus 5.2 mg/dL (2.5-4.5) H 07/17/16 06:52 Magnesium 1.9 mg/dL (1.7-2.3) 07/17/16 06:52 Urine Creatinine 36.6 mg/dL (0.1-20.0) H 07/06/16 01:18 Urine Sodium 28 mEq/L 07/06/16 01:18
--- NOTE | 2016-07-24 20:05 | Progress Note ---
Assessment and Plan No change in patients general condition.. Patient sleeping at this time., Patient on room air.No acute respiratory distress. - Patient Problems (1) Angioedema Current Visit: Yes Status: Acute Plan to address problem: Improved. (2) GABRIELA (acute kidney injury) Current Visit: Yes Status: Acute Plan to address problem: Patient is on dialysis. Mangement as per nephrology. (3) Encephalopathy acute Current Visit: Yes Status: Chronic Plan to address problem: Management as per primary care. (4) Hypertension Current Visit: Yes Status: Acute Plan to address problem: Management as per primary care. (5) Diabetes Current Visit: No Status: Acute Qualifiers: Diabetes mellitus type: type 2 Diabetes mellitus complication status: with kidney complications Diabetes mellitus complication detail: with chronic kidney disease Plan to address problem: Management as per primary care. (6) Bipolar disorder Current Visit: No Status: Acute Qualifiers: Active/Remission status: remission status unspecified Most recent bipolar episode type: most recent episode unspecified type Plan to address problem: Management as per primary care and psychiatry. Subjective Date of service: 07/24/16 Principal diagnosis: Acute Respiratory Failure; Angioedema Interval history: No change in patients general condition.. Patient sleeping at this time., Patient on room air.No acute respiratory distress. Objective Vital Signs - 12hr 07/24/16 07/24/16 07/24/16 08:30 11:10 11:20 Temperature 98.4 F Pulse Rate 72 74 73 Pulse Rate [ 72 Right Radial] Respiratory 16 20 Rate Blood Pressure 119/56 123/57 131/59 Blood Pressure [Right Arm] 07/24/16 07/24/16 07/24/16 11:30 11:45 12:00 Temperature Pulse Rate 74 76 76 Pulse Rate [ Right Radial] Respiratory Rate Blood Pressure 128/60 119/59 130/58 Blood Pressure [Right Arm] 07/24/16 07/24/16 07/24/16 12:15 12:30 12:45 Temperature Pulse Rate 78 76 77 Pulse Rate [ Right Radial] Respiratory Rate Blood Pressure 127/57 129/55 123/53 Blood Pressure [Right Arm] 07/24/16 07/24/16 07/24/16 13:00 13:15 13:30 Temperature Pulse Rate 75 73 75 Pulse Rate [ Right Radial] Respiratory Rate Blood Pressure 129/57 130/59 126/58 Blood Pressure [Right Arm] 07/24/16 07/24/16 07/24/16 13:45 14:00 14:10 Temperature Pulse Rate 78 73 78 Pulse Rate [ Right Radial] Respiratory Rate Blood Pressure 122/53 136/61 122/53 Blood Pressure [Right Arm] 07/24/16 07/24/16 07/24/16 14:15 16:13 16:30 Temperature 98.0 F 98.8 F Pulse Rate 72 80 Pulse Rate [ 80 Right Radial] Respiratory 20 24 Rate Blood Pressure 136/61 133/59 Blood Pressure 133/59 [Right Arm] Constitutional: no acute distress, lethargic Eyes: non-icteric ENT: oropharynx moist Neck: supple, no lymphadenopathy Effort: normal Ascultation: Bilateral: diminished breath sounds Cardiovascular: regular rate and rhythm Gastrointestinal: normoactive bowel sounds, soft, non-tender, non-distended Integumentary: normal Extremities: no cyanosis, no edema, pulses normal, no ischemia or petechiae Neurologic: non-focal exam (grossly), pupils equal and round, CN II-XII normal Psychiatric: anxious CBC and BMP: 07/18/16 05:06 07/24/16 05:53 ABG, PT/INR, D-dimer: ABG POC ABG pH 7.529 (7.35-7.45) H 07/13/16 14:15 POC ABG pCO2 26.8 (35-45) L 07/13/16 14:15 POC ABG pO2 70 (80-105) L 07/13/16 14:15 POC ABG HCO3 22.3 07/13/16 14:15 POC ABG Total CO2 23 07/13/16 14:15 POC ABG O2 Sat 96 07/13/16 14:15 PT/INR, D-dimer PT 14.1 Sec. (12.2-14.9) 07/18/16 05:06 INR 1.10 (0.87-1.13) 07/18/16 05:06 D-Dimer 751.80 ng/mlDDU (0-234) H 07/11/16 12:22 Abnormal lab findings: Abnormal Labs 07/03/16 07/03/16 07/04/16 14:34 14:34 06:21 WBC 3.9 L RBC 3.16 L 3.04 L Hgb 8.5 L 8.0 L Hct 26.8 L 25.6 L MCH 27 L 26 L RDW 16.5 H 16.2 H Plt Count Lymph % (Auto) [place] % (Auto) 10.7 H 10.7 H Lymph # 1.0 L [place] # Seg Neutrophils % Seg Neuts % (Manual) Lymphocytes % (Manual) Seg Neutrophils # Seg Neutrophils # Man Lymphocytes # (Manual) D-Dimer POC ABG pH POC ABG pCO2 POC ABG pO2 Sodium Potassium Chloride 107.6 H Carbon Dioxide BUN 27 H Creatinine 2.6 H Glucose POC Glucose Calcium 8.0 L Phosphorus Albumin TSH Urine WBC (Auto) Urine Creatinine 07/04/16 07/04/16 07/04/16 06:21 11:30 16:33 WBC RBC Hgb Hct MCH RDW Plt Count Lymph % (Auto) [place] % (Auto) Lymph # [place] # Seg Neutrophils % Seg Neuts % (Manual) Lymphocytes % (Manual) Seg Neutrophils # Seg Neutrophils # Man Lymphocytes # (Manual) D-Dimer POC ABG pH POC ABG pCO2 POC ABG pO2 Sodium Potassium Chloride 107.4 H Carbon Dioxide 21 L BUN 27 H Creatinine 2.7 H Glucose POC Glucose 110 H 106 H Calcium 7.8 L Phosphorus Albumin TSH Urine WBC (Auto) Urine Creatinine 07/05/16 07/05/16 07/05/16 05:08 05:08 05:08 WBC 4.0 L RBC 2.87 L Hgb 7.7 L Hct 24.2 L MCH 27 L RDW 16.0 H Plt Count Lymph % (Auto) [place] % (Auto) Lymph # [place] # Seg Neutrophils % Seg Neuts % (Manual) Lymphocytes % (Manual) Seg Neutrophils # Seg Neutrophils # Man Lymphocytes # (Manual) D-Dimer POC ABG pH POC ABG pCO2 POC ABG pO2 Sodium Potassium Chloride Carbon Dioxide 21 L BUN 32 H Creatinine 3.7 H Glucose POC Glucose Calcium 7.8 L Phosphorus Albumin TSH 8.090 H Urine WBC (Auto) Urine Creatinine 07/05/16 07/06/16 07/06/16 11:45 01:18 01:18 WBC RBC Hgb 8.3 L Hct 25.9 L MCH RDW Plt Count Lymph % (Auto) [place] % (Auto) Lymph # [place] # Seg Neutrophils % Seg Neuts % (Manual) Lymphocytes % (Manual) Seg Neutrophils # Seg Neutrophils # Man Lymphocytes # (Manual) D-Dimer POC ABG pH POC ABG pCO2 POC ABG pO2 Sodium Potassium Chloride Carbon Dioxide BUN Creatinine Glucose POC Glucose Calcium Phosphorus Albumin TSH Urine WBC (Auto) 7.0 H Urine Creatinine 36.6 H 07/06/16 07/06/16 07/06/16 05:55 05:55 16:07 WBC 3.0 L RBC 2.79 L Hgb 7.5 L Hct 23.5 L MCH 27 L RDW 16.5 H Plt Count Lymph % (Auto) [place] % (Auto) Lymph # [place] # Seg Neutrophils % Seg Neuts % (Manual) Lymphocytes % (Manual) Seg Neutrophils # Seg Neutrophils # Man Lymphocytes # (Manual) D-Dimer POC ABG pH POC ABG pCO2 POC ABG pO2 Sodium Potassium Chloride 109.3 H Carbon Dioxide 20 L BUN 32 H Creatinine 3.4 H Glucose POC Glucose 117 H Calcium 7.5 L Phosphorus Albumin TSH Urine WBC (Auto) Urine Creatinine 07/07/16 07/07/16 07/08/16 06:19 16:13 00:09 WBC RBC Hgb Hct MCH RDW Plt Count Lymph % (Auto) [place] % (Auto) Lymph # [place] # Seg Neutrophils % Seg Neuts % (Manual) Lymphocytes % (Manual) Seg Neutrophils # Seg Neutrophils # Man Lymphocytes # (Manual) D-Dimer POC ABG pH POC ABG pCO2 POC ABG pO2 Sodium Potassium Chloride 111.1 H Carbon Dioxide 20 L BUN 31 H Creatinine 3.1 H Glucose POC Glucose 108 H 134 H Calcium 8.0 L Phosphorus Albumin TSH Urine WBC (Auto) Urine Creatinine 07/08/16 07/08/16 07/08/16 11:39 16:31 21:22 WBC RBC Hgb Hct MCH RDW Plt Count Lymph % (Auto) [place] % (Auto) Lymph # [place] # Seg Neutrophils % Seg Neuts % (Manual) Lymphocytes % (Manual) Seg Neutrophils # Seg Neutrophils # Man Lymphocytes # (Manual) D-Dimer POC ABG pH POC ABG pCO2 POC ABG pO2 Sodium Potassium Chloride Carbon Dioxide BUN Creatinine Glucose POC Glucose 119 H 130 H 152 H Calcium Phosphorus Albumin TSH Urine WBC (Auto) Urine Creatinine 07/09/16 07/09/16 07/09/16 05:52 05:52 06:02 WBC RBC 3.55 L Hgb 9.4 L Hct MCH 27 L RDW 17.1 H Plt Count Lymph % (Auto) [place] % (Auto) Lymph # [place] # Seg Neutrophils % Seg Neuts % (Manual) Lymphocytes % (Manual) Seg Neutrophils # Seg Neutrophils # Man Lymphocytes # (Manual) D-Dimer POC ABG pH POC ABG pCO2 POC ABG pO2 Sodium 147 H Potassium 5.4 H Chloride 112.8 H Carbon Dioxide 21 L BUN 30 H Creatinine 2.5 H Glucose 21 L* POC Glucose < 40 L Calcium Phosphorus Albumin TSH Urine WBC (Auto) Urine Creatinine 07/09/16 07/09/16 07/10/16 11:31 16:50 05:23 WBC RBC Hgb Hct MCH RDW Plt Count Lymph % (Auto) [place] % (Auto) Lymph # [place] # Seg Neutrophils % Seg Neuts % (Manual) Lymphocytes % (Manual) Seg Neutrophils # Seg Neutrophils # Man Lymphocytes # (Manual) D-Dimer POC ABG pH POC ABG pCO2 POC ABG pO2 Sodium Potassium Chloride Carbon Dioxide BUN Creatinine Glucose POC Glucose 114 H 149 H < 40 L Calcium Phosphorus Albumin TSH Urine WBC (Auto) Urine Creatinine 07/10/16 07/10/16 07/10/16 06:03 06:43 06:43 WBC RBC 2.90 L Hgb 7.7 L Hct 25.0 L MCH 27 L RDW 17.0 H Plt Count Lymph % (Auto) [place] % (Auto) 10.4 H Lymph # 1.1 L [place] # Seg Neutrophils % Seg Neuts % (Manual) Lymphocytes % (Manual) Seg Neutrophils # Seg Neutrophils # Man Lymphocytes # (Manual) D-Dimer POC ABG pH POC ABG pCO2 POC ABG pO2 Sodium 148 H Potassium 5.1 H Chloride 111.7 H Carbon Dioxide 20 L BUN 31 H Creatinine 2.4 H Glucose POC Glucose 211 H Calcium 8.0 L Phosphorus Albumin 3.5 L TSH Urine WBC (Auto) Urine Creatinine 07/10/16 07/11/16 07/11/16 14:55 05:37 05:47 WBC RBC Hgb 7.9 L Hct 25.5 L MCH RDW Plt Count Lymph % (Auto) [place] % (Auto) Lymph # [place] # Seg Neutrophils % Seg Neuts % (Manual) Lymphocytes % (Manual) Seg Neutrophils # Seg Neutrophils # Man Lymphocytes # (Manual) D-Dimer POC ABG pH POC ABG pCO2 POC ABG pO2 Sodium Potassium Chloride Carbon Dioxide BUN Creatinine Glucose POC Glucose < 40 L > 500 H Calcium Phosphorus Albumin TSH Urine WBC (Auto) Urine Creatinine 07/11/16 07/11/16 07/11/16 05:56 07:42 07:48 WBC RBC Hgb Hct MCH RDW Plt Count Lymph % (Auto) [place] % (Auto) Lymph # [place] # Seg Neutrophils % Seg Neuts % (Manual) Lymphocytes % (Manual) Seg Neutrophils # Seg Neutrophils # Man Lymphocytes # (Manual) D-Dimer POC ABG pH POC ABG pCO2 POC ABG pO2 Sodium Potassium Chloride Carbon Dioxide BUN Creatinine Glucose POC Glucose 262 H 56 L 54 L Calcium Phosphorus Albumin TSH Urine WBC (Auto) Urine Creatinine 07/11/16 07/11/16 07/11/16 08:34 08:50 09:53 WBC RBC Hgb Hct MCH RDW Plt Count Lymph % (Auto) [place] % (Auto) Lymph # [place] # Seg Neutrophils % Seg Neuts % (Manual) Lymphocytes % (Manual) Seg Neutrophils # Seg Neutrophils # Man Lymphocytes # (Manual) D-Dimer POC ABG pH POC ABG pCO2 31.1 L POC ABG pO2 108 H Sodium Potassium Chloride Carbon Dioxide BUN Creatinine Glucose POC Glucose 110 H 68 L Calcium Phosphorus Albumin TSH Urine WBC (Auto) Urine Creatinine 07/11/16 07/11/16 07/11/16 11:48 12:22 12:22 WBC 11.6 H RBC Hgb Hct MCH 27 L RDW 17.2 H Plt Count Lymph % (Auto) [place] % (Auto) Lymph # [place] # Seg Neutrophils % Seg Neuts % (Manual) 91.0 H Lymphocytes % (Manual) 5.0 L Seg Neutrophils # 10.8 H Seg Neutrophils # Man 10.6 H Lymphocytes # (Manual) 0.6 L D-Dimer 751.80 H POC ABG pH POC ABG pCO2 POC ABG pO2 Sodium Potassium Chloride Carbon Dioxide BUN Creatinine Glucose POC Glucose 118 H Calcium Phosphorus Albumin TSH Urine WBC (Auto) Urine Creatinine 07/11/16 07/11/16 07/11/16 12:22 12:29 15:23 WBC RBC Hgb Hct MCH RDW Plt Count Lymph % (Auto) [place] % (Auto) Lymph # [place] # Seg Neutrophils % Seg Neuts % (Manual) Lymphocytes % (Manual) Seg Neutrophils # Seg Neutrophils # Man Lymphocytes # (Manual) D-Dimer POC ABG pH POC ABG pCO2 28.4 L POC ABG pO2 Sodium Potassium 6.1 H* Chloride 109.4 H Carbon Dioxide 18 L BUN 30 H Creatinine 2.1 H Glucose 126 H POC Glucose 204 H Calcium Phosphorus Albumin TSH Urine WBC (Auto) Urine Creatinine 07/11/16 07/11/16 07/11/16 17:27 17:55 21:42 WBC RBC Hgb Hct MCH RDW Plt Count Lymph % (Auto) [place] % (Auto) Lymph # [place] # Seg Neutrophils % Seg Neuts % (Manual) Lymphocytes % (Manual) Seg Neutrophils # Seg Neutrophils # Man Lymphocytes # (Manual) D-Dimer POC ABG pH POC ABG pCO2 POC ABG pO2 Sodium 146 H Potassium 6.5 H* Chloride 109.7 H Carbon Dioxide 20 L BUN 32 H Creatinine 2.4 H Glucose 167 H POC Glucose 433 H 142 H Calcium Phosphorus Albumin TSH Urine WBC (Auto) Urine Creatinine 07/12/16 07/12/16 07/12/16 04:34 04:34 05:22 WBC 14.0 H RBC Hgb Hct MCH 27 L RDW 17.6 H Plt Count 113 L Lymph % (Auto) [place] % (Auto) Lymph # [place] # Seg Neutrophils % Seg Neuts % (Manual) 87.0 H Lymphocytes % (Manual) 11.0 L Seg Neutrophils # Seg Neutrophils # Man 12.2 H Lymphocytes # (Manual) D-Dimer POC ABG pH 7.452 H POC ABG pCO2 29.6 L POC ABG pO2 Sodium Potassium 6.8 H* Chloride 110.2 H Carbon Dioxide 16 L BUN 43 H Creatinine 2.9 H Glucose 113 H POC Glucose Calcium Phosphorus Albumin TSH Urine WBC (Auto) Urine Creatinine 07/12/16 07/12/16 07/12/16 13:24 17:28 21:11 WBC RBC Hgb Hct MCH RDW Plt Count Lymph % (Auto) [place] % (Auto) Lymph # [place] # Seg Neutrophils % Seg Neuts % (Manual) Lymphocytes % (Manual) Seg Neutrophils # Seg Neutrophils # Man Lymphocytes # (Manual) D-Dimer POC ABG pH POC ABG pCO2 POC ABG pO2 Sodium 150 H Potassium Chloride 108.9 H Carbon Dioxide 21 L BUN 52 H Creatinine 3.7 H Glucose 143 H POC Glucose 148 H 134 H Calcium 8.0 L Phosphorus Albumin TSH Urine WBC (Auto) Urine Creatinine 07/12/16 07/13/16 07/13/16 21:50 04:40 04:40 WBC 14.0 H RBC 3.50 L Hgb 9.3 L Hct 29.3 L MCH 27 L RDW 17.3 H Plt Count Lymph % (Auto) 4.9 L [place] % (Auto) Lymph # 0.7 L [place] # Seg Neutrophils % 90.0 H Seg Neuts % (Manual) 93.0 H Lymphocytes % (Manual) 5.0 L Seg Neutrophils # 12.6 H Seg Neutrophils # Man 13.0 H Lymphocytes # (Manual) 0.7 L D-Dimer POC ABG pH POC ABG pCO2 POC ABG pO2 Sodium 151 H Potassium Chloride 109.3 H Carbon Dioxide BUN 59 H Creatinine 4.0 H Glucose 63 L POC Glucose 156 H Calcium 7.7 L Phosphorus Albumin TSH Urine WBC (Auto) Urine Creatinine 07/13/16 07/13/16 07/13/16 06:10 06:40 08:03 WBC RBC Hgb Hct MCH RDW Plt Count Lymph % (Auto) [place] % (Auto) Lymph # [place] # Seg Neutrophils % Seg Neuts % (Manual) Lymphocytes % (Manual) Seg Neutrophils # Seg Neutrophils # Man Lymphocytes # (Manual) D-Dimer POC ABG pH POC ABG pCO2 POC ABG pO2 Sodium Potassium Chloride Carbon Dioxide BUN Creatinine Glucose POC Glucose 68 L 176 H 141 H Calcium Phosphorus Albumin TSH Urine WBC (Auto) Urine Creatinine 07/13/16 07/13/16 07/13/16 09:17 12:30 14:15 WBC RBC Hgb Hct MCH RDW Plt Count Lymph % (Auto) [place] % (Auto) Lymph # [place] # Seg Neutrophils % Seg Neuts % (Manual) Lymphocytes % (Manual) Seg Neutrophils # Seg Neutrophils # Man Lymphocytes # (Manual) D-Dimer POC ABG pH 7.475 H 7.529 H POC ABG pCO2 33.4 L 26.8 L POC ABG pO2 110 H 70 L Sodium Potassium Chloride Carbon Dioxide BUN Creatinine Glucose POC Glucose 177 H Calcium Phosphorus Albumin TSH Urine WBC (Auto) Urine Creatinine 07/13/16 07/13/16 07/13/16 15:28 17:57 22:10 WBC RBC Hgb Hct MCH RDW Plt Count Lymph % (Auto) [place] % (Auto) Lymph # [place] # Seg Neutrophils % Seg Neuts % (Manual) Lymphocytes % (Manual) Seg Neutrophils # Seg Neutrophils # Man Lymphocytes # (Manual) D-Dimer POC ABG pH POC ABG pCO2 POC ABG pO2 Sodium Potassium Chloride Carbon Dioxide BUN Creatinine Glucose POC Glucose 122 H 166 H 197 H Calcium Phosphorus Albumin TSH Urine WBC (Auto) Urine Creatinine 07/14/16 07/14/16 07/14/16 02:00 04:21 04:21 WBC RBC 3.01 L Hgb 8.1 L Hct 25.3 L MCH 27 L RDW 17.9 H Plt Count Lymph % (Auto) 6.1 L [place] % (Auto) Lymph # 0.5 L [place] # Seg Neutrophils % 89.9 H Seg Neuts % (Manual) Lymphocytes % (Manual) Seg Neutrophils # Seg Neutrophils # Man Lymphocytes # (Manual) D-Dimer POC ABG pH POC ABG pCO2 POC ABG pO2 Sodium 150 H Potassium Chloride 107.3 H Carbon Dioxide 21 L BUN 82 H Creatinine 4.8 H Glucose 176 H POC Glucose 166 H Calcium 6.8 L Phosphorus Albumin TSH Urine WBC (Auto) Urine Creatinine 07/14/16 07/14/16 07/14/16 05:32 09:42 22:32 WBC RBC Hgb Hct MCH RDW Plt Count Lymph % (Auto) [place] % (Auto) Lymph # [place] # Seg Neutrophils % Seg Neuts % (Manual) Lymphocytes % (Manual) Seg Neutrophils # Seg Neutrophils # Man Lymphocytes # (Manual) D-Dimer POC ABG pH POC ABG pCO2 POC ABG pO2 Sodium Potassium Chloride Carbon Dioxide BUN Creatinine Glucose POC Glucose 202 H 216 H 191 H Calcium Phosphorus Albumin TSH Urine WBC (Auto) Urine Creatinine 07/15/16 07/15/16 07/15/16 04:46 04:56 04:56 WBC RBC 3.04 L Hgb 8.2 L Hct 25.8 L MCH 27 L RDW 17.3 H Plt Count Lymph % (Auto) 4.2 L [place] % (Auto) 11.8 H Lymph # 0.4 L [place] # 1.1 H Seg Neutrophils % 83.9 H Seg Neuts % (Manual) Lymphocytes % (Manual) Seg Neutrophils # Seg Neutrophils # Man Lymphocytes # (Manual) D-Dimer POC ABG pH POC ABG pCO2 POC ABG pO2 Sodium 147 H Potassium 3.4 L Chloride Carbon Dioxide 20 L BUN 109 H Creatinine 5.2 H Glucose 242 H POC Glucose 275 H Calcium 6.3 L Phosphorus Albumin TSH Urine WBC (Auto) Urine Creatinine 07/15/16 07/15/16 07/15/16 11:32 16:52 20:41 WBC RBC Hgb Hct MCH RDW Plt Count Lymph % (Auto) [place] % (Auto) Lymph # [place] # Seg Neutrophils % Seg Neuts % (Manual) Lymphocytes % (Manual) Seg Neutrophils # Seg Neutrophils # Man Lymphocytes # (Manual) D-Dimer POC ABG pH POC ABG pCO2 POC ABG pO2 Sodium Potassium Chloride Carbon Dioxide BUN Creatinine Glucose POC Glucose 250 H 195 H 219 H Calcium Phosphorus Albumin TSH Urine WBC (Auto) Urine Creatinine 07/16/16 07/16/16 07/16/16 00:37 05:47 09:54 WBC RBC 3.20 L Hgb 8.6 L Hct 27.3 L MCH 27 L RDW 17.1 H Plt Count Lymph % (Auto) 4.2 L [place] % (Auto) Lymph # 0.3 L [place] # Seg Neutrophils % 89.6 H Seg Neuts % (Manual) Lymphocytes % (Manual) Seg Neutrophils # Seg Neutrophils # Man Lymphocytes # (Manual) D-Dimer POC ABG pH POC ABG pCO2 POC ABG pO2 Sodium Potassium Chloride Carbon Dioxide BUN Creatinine Glucose POC Glucose 257 H 223 H Calcium Phosphorus Albumin TSH Urine WBC (Auto) Urine Creatinine 07/16/16 07/16/16 07/16/16 09:54 11:54 17:48 WBC RBC Hgb Hct MCH RDW Plt Count Lymph % (Auto) [place] % (Auto) Lymph # [place] # Seg Neutrophils % Seg Neuts % (Manual) Lymphocytes % (Manual) Seg Neutrophils # Seg Neutrophils # Man Lymphocytes # (Manual) D-Dimer POC ABG pH POC ABG pCO2 POC ABG pO2 Sodium 148 H Potassium Chloride Carbon Dioxide 21 L BUN 146 H Creatinine 6.0 H Glucose 249 H POC Glucose 294 H 195 H Calcium 6.4 L Phosphorus Albumin TSH Urine WBC (Auto) Urine Creatinine 07/16/16 07/16/16 07/17/16 21:54 23:53 05:53 WBC RBC Hgb Hct MCH RDW Plt Count Lymph % (Auto) [place] % (Auto) Lymph # [place] # Seg Neutrophils % Seg Neuts % (Manual) Lymphocytes % (Manual) Seg Neutrophils # Seg Neutrophils # Man Lymphocytes # (Manual) D-Dimer POC ABG pH POC ABG pCO2 POC ABG pO2 Sodium Potassium Chloride Carbon Dioxide BUN Creatinine Glucose POC Glucose 161 H 171 H 208 H Calcium Phosphorus Albumin TSH Urine WBC (Auto) Urine Creatinine 07/17/16 07/17/16 07/17/16 06:52 06:52 11:28 WBC RBC 3.17 L Hgb 8.6 L Hct 26.4 L MCH 27 L RDW 17.2 H Plt Count Lymph % (Auto) [place] % (Auto) Lymph # [place] # Seg Neutrophils % Seg Neuts % (Manual) 90.0 H Lymphocytes % (Manual) 8.0 L Seg Neutrophils # Seg Neutrophils # Man Lymphocytes # (Manual) 0.6 L D-Dimer POC ABG pH POC ABG pCO2 POC ABG pO2 Sodium Potassium Chloride Carbon Dioxide BUN 87 H Creatinine 4.2 H Glucose 231 H POC Glucose 255 H Calcium 6.2 L Phosphorus 5.2 H Albumin TSH Urine WBC (Auto) Urine Creatinine 07/17/16 07/17/16 07/18/16 16:22 23:41 05:06 WBC RBC 3.25 L Hgb 8.8 L Hct 27.2 L MCH 27 L RDW 17.0 H Plt Count Lymph % (Auto) [place] % (Auto) Lymph # [place] # Seg Neutrophils % Seg Neuts % (Manual) 80.0 H Lymphocytes % (Manual) 10.0 L Seg Neutrophils # Seg Neutrophils # Man Lymphocytes # (Manual) 0.9 L D-Dimer POC ABG pH POC ABG pCO2 POC ABG pO2 Sodium Potassium Chloride Carbon Dioxide BUN Creatinine Glucose POC Glucose 263 H 195 H Calcium Phosphorus Albumin TSH Urine WBC (Auto) Urine Creatinine 07/18/16 07/18/16 07/18/16 05:06 06:52 11:52 WBC RBC Hgb Hct MCH RDW Plt Count Lymph % (Auto) [place] % (Auto) Lymph # [place] # Seg Neutrophils % Seg Neuts % (Manual) Lymphocytes % (Manual) Seg Neutrophils # Seg Neutrophils # Man Lymphocytes # (Manual) D-Dimer POC ABG pH POC ABG pCO2 POC ABG pO2 Sodium Potassium Chloride 97.7 L Carbon Dioxide BUN 51 H Creatinine 2.8 H Glucose 252 H POC Glucose 289 H 242 H Calcium 6.4 L Phosphorus Albumin TSH Urine WBC (Auto) Urine Creatinine 07/18/16 07/18/16 07/19/16 16:36 21:34 05:50 WBC RBC Hgb Hct MCH RDW Plt Count Lymph % (Auto) [place] % (Auto) Lymph # [place] # Seg Neutrophils % Seg Neuts % (Manual) Lymphocytes % (Manual) Seg Neutrophils # Seg Neutrophils # Man Lymphocytes # (Manual) D-Dimer POC ABG pH POC ABG pCO2 POC ABG pO2 Sodium Potassium Chloride Carbon Dioxide BUN Creatinine Glucose POC Glucose 221 H 210 H 273 H Calcium Phosphorus Albumin TSH Urine WBC (Auto) Urine Creatinine 07/19/16 07/19/16 07/19/16 07:09 17:06 21:56 WBC RBC Hgb Hct MCH RDW Plt Count Lymph % (Auto) [place] % (Auto) Lymph # [place] # Seg Neutrophils % Seg Neuts % (Manual) Lymphocytes % (Manual) Seg Neutrophils # Seg Neutrophils # Man Lymphocytes # (Manual) D-Dimer POC ABG pH POC ABG pCO2 POC ABG pO2 Sodium Potassium Chloride 96.2 L Carbon Dioxide BUN 81 H Creatinine 4.9 H D Glucose 260 H POC Glucose 143 H 148 H Calcium 6.0 L Phosphorus Albumin TSH Urine WBC (Auto) Urine Creatinine 07/20/16 07/20/16 07/20/16 05:21 06:29 11:01 WBC RBC Hgb Hct MCH RDW Plt Count Lymph % (Auto) [place] % (Auto) Lymph # [place] # Seg Neutrophils % Seg Neuts % (Manual) Lymphocytes % (Manual) Seg Neutrophils # Seg Neutrophils # Man Lymphocytes # (Manual) D-Dimer POC ABG pH POC ABG pCO2 POC ABG pO2 Sodium 136 L Potassium 3.4 L Chloride 94.4 L Carbon Dioxide BUN 43 H Creatinine 3.5 H Glucose 263 H POC Glucose 299 H 281 H Calcium 6.5 L Phosphorus Albumin TSH Urine WBC (Auto) Urine Creatinine 07/20/16 07/20/16 07/21/16 17:07 22:54 06:24 WBC RBC Hgb Hct MCH RDW Plt Count Lymph % (Auto) [place] % (Auto) Lymph # [place] # Seg Neutrophils % Seg Neuts % (Manual) Lymphocytes % (Manual) Seg Neutrophils # Seg Neutrophils # Man Lymphocytes # (Manual) D-Dimer POC ABG pH POC ABG pCO2 POC ABG pO2 Sodium Potassium Chloride Carbon Dioxide BUN Creatinine Glucose POC Glucose 253 H 209 H 346 H Calcium Phosphorus Albumin TSH Urine WBC (Auto) Urine Creatinine 07/21/16 07/21/16 07/21/16 07:25 15:46 21:23 WBC RBC Hgb Hct MCH RDW Plt Count Lymph % (Auto) [place] % (Auto) Lymph # [place] # Seg Neutrophils % Seg Neuts % (Manual) Lymphocytes % (Manual) Seg Neutrophils # Seg Neutrophils # Man Lymphocytes # (Manual) D-Dimer POC ABG pH POC ABG pCO2 POC ABG pO2 Sodium 133 L Potassium Chloride 90.7 L Carbon Dioxide BUN 71 H Creatinine 4.8 H Glucose 289 H POC Glucose 112 H 218 H Calcium 6.2 L Phosphorus Albumin TSH Urine WBC (Auto) Urine Creatinine 07/22/16 07/22/16 07/22/16 06:28 11:49 16:37 WBC RBC Hgb Hct MCH RDW Plt Count Lymph % (Auto) [place] % (Auto) Lymph # [place] # Seg Neutrophils % Seg Neuts % (Manual) Lymphocytes % (Manual) Seg Neutrophils # Seg Neutrophils # Man Lymphocytes # (Manual) D-Dimer POC ABG pH POC ABG pCO2 POC ABG pO2 Sodium Potassium Chloride Carbon Dioxide BUN Creatinine Glucose POC Glucose 316 H 211 H 185 H Calcium Phosphorus Albumin TSH Urine WBC (Auto) Urine Creatinine 07/22/16 07/23/16 07/23/16 20:24 05:19 12:10 WBC RBC Hgb Hct MCH RDW Plt Count Lymph % (Auto) [place] % (Auto) Lymph # [place] # Seg Neutrophils % Seg Neuts % (Manual) Lymphocytes % (Manual) Seg Neutrophils # Seg Neutrophils # Man Lymphocytes # (Manual) D-Dimer POC ABG pH POC ABG pCO2 POC ABG pO2 Sodium Potassium Chloride Carbon Dioxide BUN Creatinine Glucose POC Glucose 213 H 319 H 261 H Calcium Phosphorus Albumin TSH Urine WBC (Auto) Urine Creatinine 07/23/16 07/23/16 07/24/16 15:49 20:58 05:29 WBC RBC Hgb Hct MCH RDW Plt Count Lymph % (Auto) [place] % (Auto) Lymph # [place] # Seg Neutrophils % Seg Neuts % (Manual) Lymphocytes % (Manual) Seg Neutrophils # Seg Neutrophils # Man Lymphocytes # (Manual) D-Dimer POC ABG pH POC ABG pCO2 POC ABG pO2 Sodium Potassium Chloride Carbon Dioxide BUN Creatinine Glucose POC Glucose 271 H 191 H 279 H Calcium Phosphorus Albumin TSH Urine WBC (Auto) Urine Creatinine 07/24/16 07/24/16 05:53 16:20 WBC RBC Hgb Hct MCH RDW Plt Count Lymph % (Auto) [place] % (Auto) Lymph # [place] # Seg Neutrophils % Seg Neuts % (Manual) Lymphocytes % (Manual) Seg Neutrophils # Seg Neutrophils # Man Lymphocytes # (Manual) D-Dimer POC ABG pH POC ABG pCO2 POC ABG pO2 Sodium Potassium Chloride Carbon Dioxide BUN 89 H Creatinine 5.3 H Glucose 273 H POC Glucose 161 H Calcium 6.2 L Phosphorus Albumin TSH Urine WBC (Auto) Urine Creatinine
[2016-07-25] MEDS: NACL 0.9% 1000 ML 1,000 ML IV SCH (01:50)
--- NOTE | 2016-07-25 04:31 | Progress Note ---
Assessment and Plan - Patient Problems (1) Acute respiratory failure Current Visit: Yes Status: Resolved Plan to address problem: supportive care, supplemental oxygen, nebs, aspiration precautions. Pending placement s/p peg placement. Discussed care plan with family. (2) Dysphagia Current Visit: Yes Status: Acute Plan to address problem: GI consulted, Pending PEG placement Discussed risks and benefits with family. awaiting family decision. (3) Encephalopathy acute Current Visit: Yes Status: Chronic Plan to address problem: Metabolic: continue supportive care. (4) Acute UTI Current Visit: No Status: Acute Plan to address problem: Iv abx, supportive care (5) Bipolar disorder Current Visit: No Status: Acute Qualifiers: Active/Remission status: remission status unspecified Most recent bipolar episode type: most recent episode unspecified type Plan to address problem: psych consulted, (6) DVT prophylaxis Current Visit: No Status: Acute History Interval history: Pt lying in bed, nonverbal, no reported nursing events. Case management consulted, D/C planning s/p peg placement. No improvement overnight. Discussed care plan with daughter. Pending approval for PEG placement from family. As per family request will consult speech therapy again for repeat swallow evaluation. Pt high risk for aspiration. Pt unable to tolerate previous swallow evaluation. Hospitalist Physical - Constitutional Vitals: Temp Pulse Resp BP Pulse Ox 98.8 F 73 18 108/43 100 07/25/16 00:00 07/25/16 00:00 07/25/16 00:00 07/25/16 00:00 07/25/16 00:00 General appearance: Present: no acute distress, obese - EENT Eyes: Present: PERRL - Neck Neck: Present: supple - Respiratory Respiratory: bilateral: diminished - Cardiovascular Rhythm: regular Heart Sounds: Present: S1 & S2 - Extremities Extremity abnormal: edema Peripheral Pulses: within normal limits - Abdominal General gastrointestinal: soft, non-tender, non-distended, no hepatomegaly, no splenomegaly - Integumentary Integumentary: Present: clear, dry, decreased turgor - Psychiatric Psychiatric: no intact judgment & insight, no memory intact - Neurologic Neurologic: CNII-XII intact, moves all extremities, no gait normal Results - Labs CBC & Chem 7: 07/18/16 05:06 07/24/16 05:53 Labs: Laboratory Last Values WBC 8.6 K/mm3 (4.5-11.0) 07/18/16 05:06 RBC 3.25 M/mm3 (3.65-5.03) L 07/18/16 05:06 Hgb 8.8 gm/dl (10.1-14.3) L 07/18/16 05:06 Hct 27.2 % (30.3-42.9) L 07/18/16 05:06 MCV 84 fl (79-97) 07/18/16 05:06 MCH 27 pg (28-32) L 07/18/16 05:06 MCHC 33 % (30-34) 07/18/16 05:06 RDW 17.0 % (13.2-15.2) H 07/18/16 05:06 Plt Count 175 K/mm3 (140-440) 07/18/16 05:06 Lymph % (Auto) 4.2 % (13.4-35.0) L 07/16/16 09:54 [place] % (Auto) 6.1 % (0.0-7.3) 07/16/16 09:54 Eos % (Auto) 0.0 % (0.0-4.3) 07/16/16 09:54 Baso % (Auto) 0.1 % (0.0-1.8) 07/16/16 09:54 Lymph # 0.3 K/mm3 (1.2-5.4) L 07/16/16 09:54 [place] # 0.5 K/mm3 (0.0-0.8) 07/16/16 09:54 Eos # 0.0 K/mm3 (0.0-0.4) 07/16/16 09:54 Baso # 0.0 K/mm3 (0.0-0.1) 07/16/16 09:54 Add Manual Diff Complete 07/18/16 05:06 Total Counted 100 07/18/16 05:06 Seg Neutrophils % 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 07/18/16 05:06 Seg Neuts % (Manual) 80.0 % (40.0-70.0) H 07/18/16 05:06 Band Neutrophils % 4.0 % 07/18/16 05:06 Lymphocytes % (Manual) 10.0 % (13.4-35.0) L 07/18/16 05:06 Reactive Lymphs % (Man) 0 % 07/18/16 05:06 Monocytes % (Manual) 6.0 % (0.0-7.3) 07/18/16 05:06 Eosinophils % (Manual) 0 % (0.0-4.3) 07/17/16 06:52 Basophils % (Manual) 0 % (0.0-1.8) 07/17/16 06:52 Metamyelocytes % 0 % 07/18/16 05:06 Myelocytes % 0 % 07/18/16 05:06 Promyelocytes % 0 % 07/18/16 05:06 Blast Cells % 0 % 07/18/16 05:06 Nucleated RBC % Not Reportable 07/18/16 05:06 Seg Neutrophils # 7.5 K/mm3 (1.8-7.7) 07/16/16 09:54 Seg Neutrophils # Man 6.9 K/mm3 (1.8-7.7) 07/18/16 05:06 Band Neutrophils # 0.3 K/mm3 07/18/16 05:06 Lymphocytes # (Manual) 0.9 K/mm3 (1.2-5.4) L 07/18/16 05:06 Abs React Lymphs (Man) 0.0 K/mm3 07/18/16 05:06 Monocytes # (Manual) 0.5 K/mm3 (0.0-0.8) 07/18/16 05:06 Eosinophils # (Manual) 0.0 K/mm3 (0.0-0.4) 07/18/16 05:06 Basophils # (Manual) 0.0 K/mm3 (0.0-0.1) 07/18/16 05:06 Metamyelocytes # 0.0 K/mm3 07/18/16 05:06 Myelocytes # 0.0 K/mm3 07/18/16 05:06 Promyelocytes # 0.0 K/mm3 07/18/16 05:06 Blast Cells # 0.0 K/mm3 07/18/16 05:06 WBC Morphology Not Reportable 07/18/16 05:06 Hypersegmented Neuts Not Reportable 07/18/16 05:06 Hyposegmented Neuts Not Reportable 07/18/16 05:06 Hypogranular Neuts Not Reportable 07/18/16 05:06 Smudge Cells Not Reportable 07/18/16 05:06 Toxic Granulation Not Reportable 07/18/16 05:06 Toxic Vacuolation Not Reportable 07/18/16 05:06 Dohle Bodies Not Reportable 07/18/16 05:06 Pelger-Huet Anomaly Not Reportable 07/18/16 05:06 Shagufta Rods Not Reportable 07/18/16 05:06 Platelet Estimate Not Reportable 07/18/16 05:06 Clumped Platelets Not Reportable 07/18/16 05:06 Plt Clumps, EDTA Not Reportable 07/18/16 05:06 Large Platelets Not Reportable 07/18/16 05:06 Giant Platelets Not Reportable 07/18/16 05:06 Platelet Satelliting Not Reportable 07/18/16 05:06 Plt Morphology Comment Not Reportable 07/18/16 05:06 RBC Morphology Not Reportable 07/18/16 05:06 Dimorphic RBCs Not Reportable 07/18/16 05:06 Polychromasia Not Reportable 07/18/16 05:06 Hypochromasia Not Reportable 07/18/16 05:06 Poikilocytosis Not Reportable 07/18/16 05:06 Anisocytosis 1+ 07/18/16 05:06 Microcytosis Not Reportable 07/18/16 05:06 Macrocytosis Not Reportable 07/18/16 05:06 Spherocytes Not Reportable 07/18/16 05:06 Pappenheimer Bodies Not Reportable 07/18/16 05:06 Sickle Cells Not Reportable 07/18/16 05:06 Target Cells Not Reportable 07/18/16 05:06 Tear Drop Cells Not Reportable 07/18/16 05:06 Ovalocytes Not Reportable 07/18/16 05:06 Helmet Cells Not Reportable 07/18/16 05:06 Pérez-[place] Bodies Not Reportable 07/18/16 05:06 [place] Rings Not Reportable 07/18/16 05:06 Radha Cells Not Reportable 07/18/16 05:06 Bite Cells Not Reportable 07/18/16 05:06 Crenated Cell Not Reportable 07/18/16 05:06 Elliptocytes Few 07/18/16 05:06 Acanthocytes (Spur) Not Reportable 07/18/16 05:06 Rouleaux Not Reportable 07/18/16 05:06 Hemoglobin C Crystals Not Reportable 07/18/16 05:06 Schistocytes Not Reportable 07/18/16 05:06 Malaria parasites Not Reportable 07/18/16 05:06 Kaushik Bodies Not Reportable 07/18/16 05:06 Hem Pathologist Commnt No 07/18/16 05:06 PT 14.1 Sec. (12.2-14.9) 07/18/16 05:06 INR 1.10 (0.87-1.13) 07/18/16 05:06 APTT 34.8 Sec. (24.2-36.6) 07/18/16 05:06 D-Dimer 751.80 ng/mlDDU (0-234) H 07/11/16 12:22 POC ABG pH 7.529 (7.35-7.45) H 07/13/16 14:15 POC ABG pCO2 26.8 (35-45) L 07/13/16 14:15 POC ABG pO2 70 (80-105) L 07/13/16 14:15 POC ABG HCO3 22.3 07/13/16 14:15 POC ABG Total CO2 23 07/13/16 14:15 POC ABG O2 Sat 96 07/13/16 14:15 POC ABG Base Excess 0 07/13/16 14:15 FiO2 21 % 07/13/16 14:15 Sodium 140 mmol/L (137-145) D 07/24/16 05:53 Potassium 3.6 mmol/L (3.6-5.0) 07/24/16 05:53 Chloride 98.3 mmol/L (98-107) 07/24/16 05:53 Carbon Dioxide 22 mmol/L (22-30) 07/24/16 05:53 Anion Gap 23 mmol/L 07/24/16 05:53 BUN 89 mg/dL (7-17) H 07/24/16 05:53 Creatinine 5.3 mg/dL (0.7-1.2) H 07/24/16 05:53 Estimated GFR 10 ml/min 07/24/16 05:53 BUN/Creatinine Ratio 16.79 % 07/24/16 05:53 Glucose 273 mg/dL (65-100) H 07/24/16 05:53 POC Glucose 136 (70-105) H 07/24/16 21:31 Hemoglobin A1c 5.6 % (4-6) 07/15/16 04:56 Lactic Acid 0.8 mmol/L (0.7-2.0) 07/19/16 00:37 Calcium 6.2 mg/dL (8.4-10.2) L 07/24/16 05:53 Phosphorus 5.2 mg/dL (2.5-4.5) H 07/17/16 06:52 Magnesium 1.9 mg/dL (1.7-2.3) 07/17/16 06:52 Total Bilirubin < 0.2 mg/dL (0.1-1.2) 07/10/16 06:43 AST 17 units/L (5-40) 07/10/16 06:43 ALT 9 units/L (7-56) 07/10/16 06:43 Alkaline Phosphatase 62 units/L (35-129) 07/10/16 06:43 Total Creatine Kinase 131 units/L (30-135) 07/11/16 12:22 CK-MB (CK-2) 2.0 ng/mL (0.0-4.0) 07/11/16 12:22 CK-MB (CK-2) Rel Index 1.5 (0-4) 07/11/16 12:22 Troponin T < 0.010 ng/mL (0.00-0.029) 07/11/16 12:22 Total Protein 6.7 g/dL (6.3-8.2) 07/10/16 06:43 Albumin 3.5 g/dL (3.9-5) L 07/10/16 06:43 Albumin/Globulin Ratio 1.1 % 07/10/16 06:43 TSH 8.090 mlU/mL (0.270-4.200) H 07/05/16 05:08 Urine Color Straw (Yellow) 07/06/16 01:18 Urine Turbidity Clear (Clear) 07/06/16 01:18 Urine pH 6.0 (5.0-7.0) 07/06/16 01:18 Ur Specific [place] 1.003 (1.003-1.030) 07/06/16 01:18 Urine Protein <15 mg/dl mg/dL (Negative) 07/06/16 01:18 Urine Glucose (UA) Neg mg/dL (Negative) 07/06/16 01:18 Urine Ketones Neg mg/dL (Negative) 07/06/16 01:18 Urine Blood Neg (Negative) 07/06/16 01:18 Urine Nitrite Neg (Negative) 07/06/16 01:18 Urine Bilirubin Neg (Negative) 07/06/16 01:18 Urine Urobilinogen < 2.0 mg/dL (<2.0) 07/06/16 01:18 Ur Leukocyte Esterase Mod (Negative) 07/06/16 01:18 Urine WBC (Auto) 7.0 /HPF (0.0-6.0) H 07/06/16 01:18 Urine RBC (Auto) 3.0 /HPF (0.0-6.0) 07/06/16 01:18 U Epithel Cells (Auto) 1.0 /HPF (0-13.0) 06/30/16 11:34 Urine Bacteria (Auto) 1+ /HPF (Negative) 06/30/16 11:34 Urine Eosinophils None seen (None Seen) 07/06/16 01:18 Urine Creatinine 36.6 mg/dL (0.1-20.0) H 07/06/16 01:18 Urine Microalbumin 6.5 mg/dL (0.1-34.0) 07/06/16 01:18 Microalb/Creat Ratio 177.5 ug/mg 07/06/16 01:18 Urine Sodium 28 mEq/L 07/06/16 01:18 Urine Opiates Screen Presumptive negative 06/30/16 11:34 Urine Methadone Screen Presumptive negative 06/30/16 11:34 Acetaminophen < 15.0 ug/mL (10.0-30.0) 06/30/16 12:01 Ur Barbiturates Screen Presumptive negative 06/30/16 11:34 Ur Phencyclidine Scrn Presumptive negative 06/30/16 11:34 Ur Amphetamines Screen Presumptive negative 06/30/16 11:34 U Benzodiazepines Scrn Presumptive negative 06/30/16 11:34 Urine Cocaine Screen Presumptive negative 06/30/16 11:34 U Marijuana (THC) Screen Presumptive negative 06/30/16 11:34 Drugs of Abuse Note Disclamer 06/30/16 11:34 Plasma/Serum Alcohol < 0.01 gm% (0-0.07) 06/30/16 12:01 Hepatitis A IgM Ab -1 (NonReactive) 07/16/16 19:08 Hep Bs Antigen Non-reactive (Negative) 07/16/16 19:08 Hep B Core IgM Ab Non-reactive (NonReactive) 07/16/16 19:08 Hepatitis C Antibody Non-reactive (NonReactive) 07/16/16 19:08
[2016-07-25] MEDS: SYNTHROID PO SCH (06:24)
[2016-07-25] MEDS: HEPARIN SUB-Q SCH ×3 (06:28→22:56)
[2016-07-25] MEDS: APRESOLINE FEEDTUBE SCH ×4 (06:29→23:01)
[2016-07-25] MEDS: NOVOLOG SUB-Q SCH ×4 (07:12→23:34)
[2016-07-25] MEDS: NORMODYNE PO SCH ×3 (08:51→20:00)
--- NOTE | 2016-07-25 10:07 | Progress Note ---
Assessment and Plan Assessment and plan: Acute hypoxic respiratory failure * Resolved, s/p extubation, Off BiPAP * On oxygen support Angioedema * Patient is now extubated and doing well. * Repeat swallow eval today * GI following for PEG placement, but family want to wait for repeat swallow study Urinary tract infection * Urine culture positive for Klebsiella * Treated with Rocephin, Acute renal failurevon CKD stage IV. * Etiology likely secondary to vasomotor nephropathy versus interstitial nephritis from initial treatment with Bactrim for UTI. * Patient is on hemodialysis, plan for perm cath placement today Hyperkalemia. * improved after dialysis DM2 * Monitor blood glucose closely, SSI Toxic metabolic encephalopathy. * Continue to treat underlying causes. * Continue supportive care Hypothyroidism. * Continue Synthroid. Hypertension * Continue current antihypertensive and adjust medications as needed * Hydralazine when necessary Left upper extremity swelling. * Ultrasound showed SVT in the cephalic vein * conservative management History Interval history: Pt lying in bed, nonverbal, no reported nursing events. Pending approval for PEG placement from family. As per family request repeat swallow evaluation today. Pt high risk for aspiration. Pt unable to tolerate previous swallow evaluation. Plan for perm cath placement today. Hospitalist Physical - Physical exam Narrative exam: General appearance: Present: no acute distress, obese - EENT Eyes: Present: PERRL - Neck Neck: Present: supple - Respiratory Respiratory: bilateral: diminished - Cardiovascular Rhythm: regular Heart Sounds: Present: S1 & S2 - Extremities Extremity abnormal: edema Peripheral Pulses: within normal limits - Abdominal General gastrointestinal: soft, non-tender, non-distended, no hepatomegaly, no splenomegaly - Integumentary Integumentary: Present: clear, dry, decreased turgor - Psychiatric Psychiatric: no intact judgment & insight, no memory intact - Constitutional Vitals: Temp Pulse Resp BP Pulse Ox 993 F H 77 15 114/56 100 07/25/16 07:10 07/25/16 08:51 07/25/16 07:10 07/25/16 08:51 07/25/16 00:00 General appearance: Present: no acute distress, obese Results - Labs CBC & Chem 7: 07/18/16 05:06 07/24/16 05:53 Labs: Laboratory Last Values WBC 8.6 K/mm3 (4.5-11.0) 07/18/16 05:06 RBC 3.25 M/mm3 (3.65-5.03) L 07/18/16 05:06 Hgb 8.8 gm/dl (10.1-14.3) L 07/18/16 05:06 Hct 27.2 % (30.3-42.9) L 07/18/16 05:06 MCV 84 fl (79-97) 07/18/16 05:06 MCH 27 pg (28-32) L 07/18/16 05:06 MCHC 33 % (30-34) 07/18/16 05:06 RDW 17.0 % (13.2-15.2) H 07/18/16 05:06 Plt Count 175 K/mm3 (140-440) 07/18/16 05:06 Lymph % (Auto) 4.2 % (13.4-35.0) L 07/16/16 09:54 [place] % (Auto) 6.1 % (0.0-7.3) 07/16/16 09:54 Eos % (Auto) 0.0 % (0.0-4.3) 07/16/16 09:54 Baso % (Auto) 0.1 % (0.0-1.8) 07/16/16 09:54 Lymph # 0.3 K/mm3 (1.2-5.4) L 07/16/16 09:54 [place] # 0.5 K/mm3 (0.0-0.8) 07/16/16 09:54 Eos # 0.0 K/mm3 (0.0-0.4) 07/16/16 09:54 Baso # 0.0 K/mm3 (0.0-0.1) 07/16/16 09:54 Add Manual Diff Complete 07/18/16 05:06 Total Counted 100 07/18/16 05:06 Seg Neutrophils % Rigging Loft Repairer 07/18/16 05:06 Seg Neuts % (Manual) 80.0 % (40.0-70.0) H 07/18/16 05:06 Band Neutrophils % 4.0 % 07/18/16 05:06 Lymphocytes % (Manual) 10.0 % (13.4-35.0) L 07/18/16 05:06 Reactive Lymphs % (Man) 0 % 07/18/16 05:06 Monocytes % (Manual) 6.0 % (0.0-7.3) 07/18/16 05:06 Eosinophils % (Manual) 0 % (0.0-4.3) 07/17/16 06:52 Basophils % (Manual) 0 % (0.0-1.8) 07/17/16 06:52 Metamyelocytes % 0 % 07/18/16 05:06 Myelocytes % 0 % 07/18/16 05:06 Promyelocytes % 0 % 07/18/16 05:06 Blast Cells % 0 % 07/18/16 05:06 Nucleated RBC % Not Reportable 07/18/16 05:06 Seg Neutrophils # 7.5 K/mm3 (1.8-7.7) 07/16/16 09:54 Seg Neutrophils # Man 6.9 K/mm3 (1.8-7.7) 07/18/16 05:06 Band Neutrophils # 0.3 K/mm3 07/18/16 05:06 Lymphocytes # (Manual) 0.9 K/mm3 (1.2-5.4) L 07/18/16 05:06 Abs React Lymphs (Man) 0.0 K/mm3 07/18/16 05:06 Monocytes # (Manual) 0.5 K/mm3 (0.0-0.8) 07/18/16 05:06 Eosinophils # (Manual) 0.0 K/mm3 (0.0-0.4) 07/18/16 05:06 Basophils # (Manual) 0.0 K/mm3 (0.0-0.1) 07/18/16 05:06 Metamyelocytes # 0.0 K/mm3 07/18/16 05:06 Myelocytes # 0.0 K/mm3 07/18/16 05:06 Promyelocytes # 0.0 K/mm3 07/18/16 05:06 Blast Cells # 0.0 K/mm3 07/18/16 05:06 WBC Morphology Not Reportable 07/18/16 05:06 Hypersegmented Neuts Not Reportable 07/18/16 05:06 Hyposegmented Neuts Not Reportable 07/18/16 05:06 Hypogranular Neuts Not Reportable 07/18/16 05:06 Smudge Cells Not Reportable 07/18/16 05:06 Toxic Granulation Not Reportable 07/18/16 05:06 Toxic Vacuolation Not Reportable 07/18/16 05:06 Dohle Bodies Not Reportable 07/18/16 05:06 Pelger-Huet Anomaly Not Reportable 07/18/16 05:06 Shagufta Rods Not Reportable 07/18/16 05:06 Platelet Estimate Not Reportable 07/18/16 05:06 Clumped Platelets Not Reportable 07/18/16 05:06 Plt Clumps, EDTA Not Reportable 07/18/16 05:06 Large Platelets Not Reportable 07/18/16 05:06 Giant Platelets Not Reportable 07/18/16 05:06 Platelet Satelliting Not Reportable 07/18/16 05:06 Plt Morphology Comment Not Reportable 07/18/16 05:06 RBC Morphology Not Reportable 07/18/16 05:06 Dimorphic RBCs Not Reportable 07/18/16 05:06 Polychromasia Not Reportable 07/18/16 05:06 Hypochromasia Not Reportable 07/18/16 05:06 Poikilocytosis Not Reportable 07/18/16 05:06 Anisocytosis 1+ 07/18/16 05:06 Microcytosis Not Reportable 07/18/16 05:06 Macrocytosis Not Reportable 07/18/16 05:06 Spherocytes Not Reportable 07/18/16 05:06 Pappenheimer Bodies Not Reportable 07/18/16 05:06 Sickle Cells Not Reportable 07/18/16 05:06 Target Cells Not Reportable 07/18/16 05:06 Tear Drop Cells Not Reportable 07/18/16 05:06 Ovalocytes Not Reportable 07/18/16 05:06 Helmet Cells Not Reportable 07/18/16 05:06 Pérez-[place] Bodies Not Reportable 07/18/16 05:06 [place] Rings Not Reportable 07/18/16 05:06 Radha Cells Not Reportable 07/18/16 05:06 Bite Cells Not Reportable 07/18/16 05:06 Crenated Cell Not Reportable 07/18/16 05:06 Elliptocytes Few 07/18/16 05:06 Acanthocytes (Spur) Not Reportable 07/18/16 05:06 Rouleaux Not Reportable 07/18/16 05:06 Hemoglobin C Crystals Not Reportable 07/18/16 05:06 Schistocytes Not Reportable 07/18/16 05:06 Malaria parasites Not Reportable 07/18/16 05:06 Kaushik Bodies Not Reportable 07/18/16 05:06 Hem Pathologist Commnt No 07/18/16 05:06 PT 14.1 Sec. (12.2-14.9) 07/18/16 05:06 INR 1.10 (0.87-1.13) 07/18/16 05:06 APTT 34.8 Sec. (24.2-36.6) 07/18/16 05:06 D-Dimer 751.80 ng/mlDDU (0-234) H 07/11/16 12:22 POC ABG pH 7.529 (7.35-7.45) H 07/13/16 14:15 POC ABG pCO2 26.8 (35-45) L 07/13/16 14:15 POC ABG pO2 70 (80-105) L 07/13/16 14:15 POC ABG HCO3 22.3 07/13/16 14:15 POC ABG Total CO2 23 07/13/16 14:15 POC ABG O2 Sat 96 07/13/16 14:15 POC ABG Base Excess 0 07/13/16 14:15 FiO2 21 % 07/13/16 14:15 Sodium 140 mmol/L (137-145) D 07/24/16 05:53 Potassium 3.6 mmol/L (3.6-5.0) 07/24/16 05:53 Chloride 98.3 mmol/L (98-107) 07/24/16 05:53 Carbon Dioxide 22 mmol/L (22-30) 07/24/16 05:53 Anion Gap 23 mmol/L 07/24/16 05:53 BUN 89 mg/dL (7-17) H 07/24/16 05:53 Creatinine 5.3 mg/dL (0.7-1.2) H 07/24/16 05:53 Estimated GFR 10 ml/min 07/24/16 05:53 BUN/Creatinine Ratio 16.79 % 07/24/16 05:53 Glucose 273 mg/dL (65-100) H 07/24/16 05:53 POC Glucose 311 (70-105) H 07/25/16 06:25 Hemoglobin A1c 5.6 % (4-6) 07/15/16 04:56 Lactic Acid 0.8 mmol/L (0.7-2.0) 07/19/16 00:37 Calcium 6.2 mg/dL (8.4-10.2) L 07/24/16 05:53 Phosphorus 5.2 mg/dL (2.5-4.5) H 07/17/16 06:52 Magnesium 1.9 mg/dL (1.7-2.3) 07/17/16 06:52 Total Bilirubin < 0.2 mg/dL (0.1-1.2) 07/10/16 06:43 AST 17 units/L (5-40) 07/10/16 06:43 ALT 9 units/L (7-56) 07/10/16 06:43 Alkaline Phosphatase 62 units/L (35-129) 07/10/16 06:43 Total Creatine Kinase 131 units/L (30-135) 07/11/16 12:22 CK-MB (CK-2) 2.0 ng/mL (0.0-4.0) 07/11/16 12:22 CK-MB (CK-2) Rel Index 1.5 (0-4) 07/11/16 12:22 Troponin T < 0.010 ng/mL (0.00-0.029) 07/11/16 12:22 Total Protein 6.7 g/dL (6.3-8.2) 07/10/16 06:43 Albumin 3.5 g/dL (3.9-5) L 07/10/16 06:43 Albumin/Globulin Ratio 1.1 % 07/10/16 06:43 TSH 8.090 mlU/mL (0.270-4.200) H 07/05/16 05:08 Urine Color Straw (Yellow) 07/06/16 01:18 Urine Turbidity Clear (Clear) 07/06/16 01:18 Urine pH 6.0 (5.0-7.0) 07/06/16 01:18 Ur Specific [place] 1.003 (1.003-1.030) 07/06/16 01:18 Urine Protein <15 mg/dl mg/dL (Negative) 07/06/16 01:18 Urine Glucose (UA) Neg mg/dL (Negative) 07/06/16 01:18 Urine Ketones Neg mg/dL (Negative) 07/06/16 01:18 Urine Blood Neg (Negative) 07/06/16 01:18 Urine Nitrite Neg (Negative) 07/06/16 01:18 Urine Bilirubin Neg (Negative) 07/06/16 01:18 Urine Urobilinogen < 2.0 mg/dL (<2.0) 07/06/16 01:18 Ur Leukocyte Esterase Mod (Negative) 07/06/16 01:18 Urine WBC (Auto) 7.0 /HPF (0.0-6.0) H 07/06/16 01:18 Urine RBC (Auto) 3.0 /HPF (0.0-6.0) 07/06/16 01:18 U Epithel Cells (Auto) 1.0 /HPF (0-13.0) 06/30/16 11:34 Urine Bacteria (Auto) 1+ /HPF (Negative) 06/30/16 11:34 Urine Eosinophils None seen (None Seen) 07/06/16 01:18 Urine Creatinine 36.6 mg/dL (0.1-20.0) H 07/06/16 01:18 Urine Microalbumin 6.5 mg/dL (0.1-34.0) 07/06/16 01:18 Microalb/Creat Ratio 177.5 ug/mg 07/06/16 01:18 Urine Sodium 28 mEq/L 07/06/16 01:18 Urine Opiates Screen Presumptive negative 06/30/16 11:34 Urine Methadone Screen Presumptive negative 06/30/16 11:34 Acetaminophen < 15.0 ug/mL (10.0-30.0) 06/30/16 12:01 Ur Barbiturates Screen Presumptive negative 06/30/16 11:34 Ur Phencyclidine Scrn Presumptive negative 06/30/16 11:34 Ur Amphetamines Screen Presumptive negative 06/30/16 11:34 U Benzodiazepines Scrn Presumptive negative 06/30/16 11:34 Urine Cocaine Screen Presumptive negative 06/30/16 11:34 U Marijuana (THC) Screen Presumptive negative 06/30/16 11:34 Drugs of Abuse Note Disclamer 06/30/16 11:34 Plasma/Serum Alcohol < 0.01 gm% (0-0.07) 06/30/16 12:01 Hepatitis A IgM Ab -1 (NonReactive) 07/16/16 19:08 Hep Bs Antigen Non-reactive (Negative) 07/16/16 19:08 Hep B Core IgM Ab Non-reactive (NonReactive) 07/16/16 19:08 Hepatitis C Antibody Non-reactive (NonReactive) 07/16/16 19:08
--- NOTE | 2016-07-25 10:13 | Progress Note ---
Assessment and Plan - Patient Problems (1) Bipolar disorder Current Visit: No Status: Acute Qualifiers: Active/Remission status: remission status unspecified Most recent bipolar episode type: most recent episode unspecified type Plan to address problem: - stable but affects interpretation of her affect (2) Renal failure (ARF), acute on chronic Current Visit: No Status: Acute Plan to address problem: - nephrology evaluation ongoing - correct electrolytes as necessary - prn dialysis as per nephrology recs (3) Malignant hypertension Current Visit: No Status: Chronic Plan to address problem: - better controlled - continue p.o. hydralazine, labetolol with prn IV meds (4) Acute respiratory failure Current Visit: Yes Status: Resolved Plan to address problem: - resolved mostly - tapered off scheduled benadryl - tapered to pepcid daily - tapered of systemic steroids - prn BIPAP - continue bronchodilators and pulmonary toilet (5) Angioedema Current Visit: Yes Status: Acute Plan to address problem: - no obvious external edema - taper off anti-histamine therapy and steroids Subjective Date of service: 07/25/16 Principal diagnosis: Acute Respiratory Failure; Angioedema Interval history: Seen and examined at bedside; 24 hour events reviewed; nursing and respiratory care staff consulted; no adverse overnight events reported to me; resting peacefully; azotemia is persistent; no emesis or overt aspiration reported Objective Vital Signs - 12hr 07/24/16 07/25/16 07/25/16 23:34 00:00 07:10 Temperature 98.8 F 993 F H Pulse Rate 71 Pulse Rate [ 77 Left Radial] Pulse Rate [ 73 Right Radial] Respiratory 18 15 Rate Blood Pressure 112/55 Blood Pressure 114/56 [Left Arm] Blood Pressure 108/43 [Right Arm] O2 Sat by Pulse 100 Oximetry 07/25/16 08:51 Temperature Pulse Rate 77 Pulse Rate [ Left Radial] Pulse Rate [ Right Radial] Respiratory Rate Blood Pressure 114/56 Blood Pressure [Left Arm] Blood Pressure [Right Arm] O2 Sat by Pulse Oximetry Constitutional: no acute distress, other (somnolent) Eyes: non-icteric ENT: oropharynx moist Neck: supple, no lymphadenopathy Effort: normal Ascultation: Bilateral: clear, diminished breath sounds (bases) Cardiovascular: regular rate and rhythm Gastrointestinal: normoactive bowel sounds, soft, non-tender, non-distended Integumentary: normal Extremities: no cyanosis, no edema, pulses normal, no ischemia or petechiae Neurologic: non-focal exam (grossly), pupils equal and round, CN II-XII normal Psychiatric: other (somnolent) CBC and BMP: 07/26/16 12:50 07/26/16 12:50 ABG, PT/INR, D-dimer: ABG POC ABG pH 7.529 (7.35-7.45) H 07/13/16 14:15 POC ABG pCO2 26.8 (35-45) L 07/13/16 14:15 POC ABG pO2 70 (80-105) L 07/13/16 14:15 POC ABG HCO3 22.3 07/13/16 14:15 POC ABG Total CO2 23 07/13/16 14:15 POC ABG O2 Sat 96 07/13/16 14:15 PT/INR, D-dimer PT 14.1 Sec. (12.2-14.9) 07/18/16 05:06 INR 1.10 (0.87-1.13) 07/18/16 05:06 D-Dimer 751.80 ng/mlDDU (0-234) H 07/11/16 12:22 Abnormal lab findings: Abnormal Labs 07/03/16 07/03/16 07/04/16 14:34 14:34 06:21 WBC 3.9 L RBC 3.16 L 3.04 L Hgb 8.5 L 8.0 L Hct 26.8 L 25.6 L MCH 27 L 26 L RDW 16.5 H 16.2 H Plt Count Lymph % (Auto) [place] % (Auto) 10.7 H 10.7 H Lymph # 1.0 L [place] # Seg Neutrophils % Seg Neuts % (Manual) Lymphocytes % (Manual) Seg Neutrophils # Seg Neutrophils # Man Lymphocytes # (Manual) D-Dimer POC ABG pH POC ABG pCO2 POC ABG pO2 Sodium Potassium Chloride 107.6 H Carbon Dioxide BUN 27 H Creatinine 2.6 H Glucose POC Glucose Calcium 8.0 L Phosphorus Albumin TSH Urine WBC (Auto) Urine Creatinine 07/04/16 07/04/16 07/04/16 06:21 11:30 16:33 WBC RBC Hgb Hct MCH RDW Plt Count Lymph % (Auto) [place] % (Auto) Lymph # [place] # Seg Neutrophils % Seg Neuts % (Manual) Lymphocytes % (Manual) Seg Neutrophils # Seg Neutrophils # Man Lymphocytes # (Manual) D-Dimer POC ABG pH POC ABG pCO2 POC ABG pO2 Sodium Potassium Chloride 107.4 H Carbon Dioxide 21 L BUN 27 H Creatinine 2.7 H Glucose POC Glucose 110 H 106 H Calcium 7.8 L Phosphorus Albumin TSH Urine WBC (Auto) Urine Creatinine 07/05/16 07/05/16 07/05/16 05:08 05:08 05:08 WBC 4.0 L RBC 2.87 L Hgb 7.7 L Hct 24.2 L MCH 27 L RDW 16.0 H Plt Count Lymph % (Auto) [place] % (Auto) Lymph # [place] # Seg Neutrophils % Seg Neuts % (Manual) Lymphocytes % (Manual) Seg Neutrophils # Seg Neutrophils # Man Lymphocytes # (Manual) D-Dimer POC ABG pH POC ABG pCO2 POC ABG pO2 Sodium Potassium Chloride Carbon Dioxide 21 L BUN 32 H Creatinine 3.7 H Glucose POC Glucose Calcium 7.8 L Phosphorus Albumin TSH 8.090 H Urine WBC (Auto) Urine Creatinine 07/05/16 07/06/16 07/06/16 11:45 01:18 01:18 WBC RBC Hgb 8.3 L Hct 25.9 L MCH RDW Plt Count Lymph % (Auto) [place] % (Auto) Lymph # [place] # Seg Neutrophils % Seg Neuts % (Manual) Lymphocytes % (Manual) Seg Neutrophils # Seg Neutrophils # Man Lymphocytes # (Manual) D-Dimer POC ABG pH POC ABG pCO2 POC ABG pO2 Sodium Potassium Chloride Carbon Dioxide BUN Creatinine Glucose POC Glucose Calcium Phosphorus Albumin TSH Urine WBC (Auto) 7.0 H Urine Creatinine 36.6 H 07/06/16 07/06/16 07/06/16 05:55 05:55 16:07 WBC 3.0 L RBC 2.79 L Hgb 7.5 L Hct 23.5 L MCH 27 L RDW 16.5 H Plt Count Lymph % (Auto) [place] % (Auto) Lymph # [place] # Seg Neutrophils % Seg Neuts % (Manual) Lymphocytes % (Manual) Seg Neutrophils # Seg Neutrophils # Man Lymphocytes # (Manual) D-Dimer POC ABG pH POC ABG pCO2 POC ABG pO2 Sodium Potassium Chloride 109.3 H Carbon Dioxide 20 L BUN 32 H Creatinine 3.4 H Glucose POC Glucose 117 H Calcium 7.5 L Phosphorus Albumin TSH Urine WBC (Auto) Urine Creatinine 07/07/16 07/07/16 07/08/16 06:19 16:13 00:09 WBC RBC Hgb Hct MCH RDW Plt Count Lymph % (Auto) [place] % (Auto) Lymph # [place] # Seg Neutrophils % Seg Neuts % (Manual) Lymphocytes % (Manual) Seg Neutrophils # Seg Neutrophils # Man Lymphocytes # (Manual) D-Dimer POC ABG pH POC ABG pCO2 POC ABG pO2 Sodium Potassium Chloride 111.1 H Carbon Dioxide 20 L BUN 31 H Creatinine 3.1 H Glucose POC Glucose 108 H 134 H Calcium 8.0 L Phosphorus Albumin TSH Urine WBC (Auto) Urine Creatinine 07/08/16 07/08/16 07/08/16 11:39 16:31 21:22 WBC RBC Hgb Hct MCH RDW Plt Count Lymph % (Auto) [place] % (Auto) Lymph # [place] # Seg Neutrophils % Seg Neuts % (Manual) Lymphocytes % (Manual) Seg Neutrophils # Seg Neutrophils # Man Lymphocytes # (Manual) D-Dimer POC ABG pH POC ABG pCO2 POC ABG pO2 Sodium Potassium Chloride Carbon Dioxide BUN Creatinine Glucose POC Glucose 119 H 130 H 152 H Calcium Phosphorus Albumin TSH Urine WBC (Auto) Urine Creatinine 07/09/16 07/09/16 07/09/16 05:52 05:52 06:02 WBC RBC 3.55 L Hgb 9.4 L Hct MCH 27 L RDW 17.1 H Plt Count Lymph % (Auto) [place] % (Auto) Lymph # [place] # Seg Neutrophils % Seg Neuts % (Manual) Lymphocytes % (Manual) Seg Neutrophils # Seg Neutrophils # Man Lymphocytes # (Manual) D-Dimer POC ABG pH POC ABG pCO2 POC ABG pO2 Sodium 147 H Potassium 5.4 H Chloride 112.8 H Carbon Dioxide 21 L BUN 30 H Creatinine 2.5 H Glucose 21 L* POC Glucose < 40 L Calcium Phosphorus Albumin TSH Urine WBC (Auto) Urine Creatinine 07/09/16 07/09/16 07/10/16 11:31 16:50 05:23 WBC RBC Hgb Hct MCH RDW Plt Count Lymph % (Auto) [place] % (Auto) Lymph # [place] # Seg Neutrophils % Seg Neuts % (Manual) Lymphocytes % (Manual) Seg Neutrophils # Seg Neutrophils # Man Lymphocytes # (Manual) D-Dimer POC ABG pH POC ABG pCO2 POC ABG pO2 Sodium Potassium Chloride Carbon Dioxide BUN Creatinine Glucose POC Glucose 114 H 149 H < 40 L Calcium Phosphorus Albumin TSH Urine WBC (Auto) Urine Creatinine 07/10/16 07/10/16 07/10/16 06:03 06:43 06:43 WBC RBC 2.90 L Hgb 7.7 L Hct 25.0 L MCH 27 L RDW 17.0 H Plt Count Lymph % (Auto) [place] % (Auto) 10.4 H Lymph # 1.1 L [place] # Seg Neutrophils % Seg Neuts % (Manual) Lymphocytes % (Manual) Seg Neutrophils # Seg Neutrophils # Man Lymphocytes # (Manual) D-Dimer POC ABG pH POC ABG pCO2 POC ABG pO2 Sodium 148 H Potassium 5.1 H Chloride 111.7 H Carbon Dioxide 20 L BUN 31 H Creatinine 2.4 H Glucose POC Glucose 211 H Calcium 8.0 L Phosphorus Albumin 3.5 L TSH Urine WBC (Auto) Urine Creatinine 07/10/16 07/11/16 07/11/16 14:55 05:37 05:47 WBC RBC Hgb 7.9 L Hct 25.5 L MCH RDW Plt Count Lymph % (Auto) [place] % (Auto) Lymph # [place] # Seg Neutrophils % Seg Neuts % (Manual) Lymphocytes % (Manual) Seg Neutrophils # Seg Neutrophils # Man Lymphocytes # (Manual) D-Dimer POC ABG pH POC ABG pCO2 POC ABG pO2 Sodium Potassium Chloride Carbon Dioxide BUN Creatinine Glucose POC Glucose < 40 L > 500 H Calcium Phosphorus Albumin TSH Urine WBC (Auto) Urine Creatinine 07/11/16 07/11/16 07/11/16 05:56 07:42 07:48 WBC RBC Hgb Hct MCH RDW Plt Count Lymph % (Auto) [place] % (Auto) Lymph # [place] # Seg Neutrophils % Seg Neuts % (Manual) Lymphocytes % (Manual) Seg Neutrophils # Seg Neutrophils # Man Lymphocytes # (Manual) D-Dimer POC ABG pH POC ABG pCO2 POC ABG pO2 Sodium Potassium Chloride Carbon Dioxide BUN Creatinine Glucose POC Glucose 262 H 56 L 54 L Calcium Phosphorus Albumin TSH Urine WBC (Auto) Urine Creatinine 07/11/16 07/11/16 07/11/16 08:34 08:50 09:53 WBC RBC Hgb Hct MCH RDW Plt Count Lymph % (Auto) [place] % (Auto) Lymph # [place] # Seg Neutrophils % Seg Neuts % (Manual) Lymphocytes % (Manual) Seg Neutrophils # Seg Neutrophils # Man Lymphocytes # (Manual) D-Dimer POC ABG pH POC ABG pCO2 31.1 L POC ABG pO2 108 H Sodium Potassium Chloride Carbon Dioxide BUN Creatinine Glucose POC Glucose 110 H 68 L Calcium Phosphorus Albumin TSH Urine WBC (Auto) Urine Creatinine 07/11/16 07/11/16 07/11/16 11:48 12:22 12:22 WBC 11.6 H RBC Hgb Hct MCH 27 L RDW 17.2 H Plt Count Lymph % (Auto) [place] % (Auto) Lymph # [place] # Seg Neutrophils % Seg Neuts % (Manual) 91.0 H Lymphocytes % (Manual) 5.0 L Seg Neutrophils # 10.8 H Seg Neutrophils # Man 10.6 H Lymphocytes # (Manual) 0.6 L D-Dimer 751.80 H POC ABG pH POC ABG pCO2 POC ABG pO2 Sodium Potassium Chloride Carbon Dioxide BUN Creatinine Glucose POC Glucose 118 H Calcium Phosphorus Albumin TSH Urine WBC (Auto) Urine Creatinine 07/11/16 07/11/16 07/11/16 12:22 12:29 15:23 WBC RBC Hgb Hct MCH RDW Plt Count Lymph % (Auto) [place] % (Auto) Lymph # [place] # Seg Neutrophils % Seg Neuts % (Manual) Lymphocytes % (Manual) Seg Neutrophils # Seg Neutrophils # Man Lymphocytes # (Manual) D-Dimer POC ABG pH POC ABG pCO2 28.4 L POC ABG pO2 Sodium Potassium 6.1 H* Chloride 109.4 H Carbon Dioxide 18 L BUN 30 H Creatinine 2.1 H Glucose 126 H POC Glucose 204 H Calcium Phosphorus Albumin TSH Urine WBC (Auto) Urine Creatinine 07/11/16 07/11/16 07/11/16 17:27 17:55 21:42 WBC RBC Hgb Hct MCH RDW Plt Count Lymph % (Auto) [place] % (Auto) Lymph # [place] # Seg Neutrophils % Seg Neuts % (Manual) Lymphocytes % (Manual) Seg Neutrophils # Seg Neutrophils # Man Lymphocytes # (Manual) D-Dimer POC ABG pH POC ABG pCO2 POC ABG pO2 Sodium 146 H Potassium 6.5 H* Chloride 109.7 H Carbon Dioxide 20 L BUN 32 H Creatinine 2.4 H Glucose 167 H POC Glucose 433 H 142 H Calcium Phosphorus Albumin TSH Urine WBC (Auto) Urine Creatinine 07/12/16 07/12/16 07/12/16 04:34 04:34 05:22 WBC 14.0 H RBC Hgb Hct MCH 27 L RDW 17.6 H Plt Count 113 L Lymph % (Auto) [place] % (Auto) Lymph # [place] # Seg Neutrophils % Seg Neuts % (Manual) 87.0 H Lymphocytes % (Manual) 11.0 L Seg Neutrophils # Seg Neutrophils # Man 12.2 H Lymphocytes # (Manual) D-Dimer POC ABG pH 7.452 H POC ABG pCO2 29.6 L POC ABG pO2 Sodium Potassium 6.8 H* Chloride 110.2 H Carbon Dioxide 16 L BUN 43 H Creatinine 2.9 H Glucose 113 H POC Glucose Calcium Phosphorus Albumin TSH Urine WBC (Auto) Urine Creatinine 07/12/16 07/12/16 07/12/16 13:24 17:28 21:11 WBC RBC Hgb Hct MCH RDW Plt Count Lymph % (Auto) [place] % (Auto) Lymph # [place] # Seg Neutrophils % Seg Neuts % (Manual) Lymphocytes % (Manual) Seg Neutrophils # Seg Neutrophils # Man Lymphocytes # (Manual) D-Dimer POC ABG pH POC ABG pCO2 POC ABG pO2 Sodium 150 H Potassium Chloride 108.9 H Carbon Dioxide 21 L BUN 52 H Creatinine 3.7 H Glucose 143 H POC Glucose 148 H 134 H Calcium 8.0 L Phosphorus Albumin TSH Urine WBC (Auto) Urine Creatinine 07/12/16 07/13/16 07/13/16 21:50 04:40 04:40 WBC 14.0 H RBC 3.50 L Hgb 9.3 L Hct 29.3 L MCH 27 L RDW 17.3 H Plt Count Lymph % (Auto) 4.9 L [place] % (Auto) Lymph # 0.7 L [place] # Seg Neutrophils % 90.0 H Seg Neuts % (Manual) 93.0 H Lymphocytes % (Manual) 5.0 L Seg Neutrophils # 12.6 H Seg Neutrophils # Man 13.0 H Lymphocytes # (Manual) 0.7 L D-Dimer POC ABG pH POC ABG pCO2 POC ABG pO2 Sodium 151 H Potassium Chloride 109.3 H Carbon Dioxide BUN 59 H Creatinine 4.0 H Glucose 63 L POC Glucose 156 H Calcium 7.7 L Phosphorus Albumin TSH Urine WBC (Auto) Urine Creatinine 07/13/16 07/13/16 07/13/16 06:10 06:40 08:03 WBC RBC Hgb Hct MCH RDW Plt Count Lymph % (Auto) [place] % (Auto) Lymph # [place] # Seg Neutrophils % Seg Neuts % (Manual) Lymphocytes % (Manual) Seg Neutrophils # Seg Neutrophils # Man Lymphocytes # (Manual) D-Dimer POC ABG pH POC ABG pCO2 POC ABG pO2 Sodium Potassium Chloride Carbon Dioxide BUN Creatinine Glucose POC Glucose 68 L 176 H 141 H Calcium Phosphorus Albumin TSH Urine WBC (Auto) Urine Creatinine 07/13/16 07/13/16 07/13/16 09:17 12:30 14:15 WBC RBC Hgb Hct MCH RDW Plt Count Lymph % (Auto) [place] % (Auto) Lymph # [place] # Seg Neutrophils % Seg Neuts % (Manual) Lymphocytes % (Manual) Seg Neutrophils # Seg Neutrophils # Man Lymphocytes # (Manual) D-Dimer POC ABG pH 7.475 H 7.529 H POC ABG pCO2 33.4 L 26.8 L POC ABG pO2 110 H 70 L Sodium Potassium Chloride Carbon Dioxide BUN Creatinine Glucose POC Glucose 177 H Calcium Phosphorus Albumin TSH Urine WBC (Auto) Urine Creatinine 07/13/16 07/13/16 07/13/16 15:28 17:57 22:10 WBC RBC Hgb Hct MCH RDW Plt Count Lymph % (Auto) [place] % (Auto) Lymph # [place] # Seg Neutrophils % Seg Neuts % (Manual) Lymphocytes % (Manual) Seg Neutrophils # Seg Neutrophils # Man Lymphocytes # (Manual) D-Dimer POC ABG pH POC ABG pCO2 POC ABG pO2 Sodium Potassium Chloride Carbon Dioxide BUN Creatinine Glucose POC Glucose 122 H 166 H 197 H Calcium Phosphorus Albumin TSH Urine WBC (Auto) Urine Creatinine 07/14/16 07/14/16 07/14/16 02:00 04:21 04:21 WBC RBC 3.01 L Hgb 8.1 L Hct 25.3 L MCH 27 L RDW 17.9 H Plt Count Lymph % (Auto) 6.1 L [place] % (Auto) Lymph # 0.5 L [place] # Seg Neutrophils % 89.9 H Seg Neuts % (Manual) Lymphocytes % (Manual) Seg Neutrophils # Seg Neutrophils # Man Lymphocytes # (Manual) D-Dimer POC ABG pH POC ABG pCO2 POC ABG pO2 Sodium 150 H Potassium Chloride 107.3 H Carbon Dioxide 21 L BUN 82 H Creatinine 4.8 H Glucose 176 H POC Glucose 166 H Calcium 6.8 L Phosphorus Albumin TSH Urine WBC (Auto) Urine Creatinine 07/14/16 07/14/16 07/14/16 05:32 09:42 22:32 WBC RBC Hgb Hct MCH RDW Plt Count Lymph % (Auto) [place] % (Auto) Lymph # [place] # Seg Neutrophils % Seg Neuts % (Manual) Lymphocytes % (Manual) Seg Neutrophils # Seg Neutrophils # Man Lymphocytes # (Manual) D-Dimer POC ABG pH POC ABG pCO2 POC ABG pO2 Sodium Potassium Chloride Carbon Dioxide BUN Creatinine Glucose POC Glucose 202 H 216 H 191 H Calcium Phosphorus Albumin TSH Urine WBC (Auto) Urine Creatinine 07/15/16 07/15/16 07/15/16 04:46 04:56 04:56 WBC RBC 3.04 L Hgb 8.2 L Hct 25.8 L MCH 27 L RDW 17.3 H Plt Count Lymph % (Auto) 4.2 L [place] % (Auto) 11.8 H Lymph # 0.4 L [place] # 1.1 H Seg Neutrophils % 83.9 H Seg Neuts % (Manual) Lymphocytes % (Manual) Seg Neutrophils # Seg Neutrophils # Man Lymphocytes # (Manual) D-Dimer POC ABG pH POC ABG pCO2 POC ABG pO2 Sodium 147 H Potassium 3.4 L Chloride Carbon Dioxide 20 L BUN 109 H Creatinine 5.2 H Glucose 242 H POC Glucose 275 H Calcium 6.3 L Phosphorus Albumin TSH Urine WBC (Auto) Urine Creatinine 07/15/16 07/15/16 07/15/16 11:32 16:52 20:41 WBC RBC Hgb Hct MCH RDW Plt Count Lymph % (Auto) [place] % (Auto) Lymph # [place] # Seg Neutrophils % Seg Neuts % (Manual) Lymphocytes % (Manual) Seg Neutrophils # Seg Neutrophils # Man Lymphocytes # (Manual) D-Dimer POC ABG pH POC ABG pCO2 POC ABG pO2 Sodium Potassium Chloride Carbon Dioxide BUN Creatinine Glucose POC Glucose 250 H 195 H 219 H Calcium Phosphorus Albumin TSH Urine WBC (Auto) Urine Creatinine 07/16/16 07/16/16 07/16/16 00:37 05:47 09:54 WBC RBC 3.20 L Hgb 8.6 L Hct 27.3 L MCH 27 L RDW 17.1 H Plt Count Lymph % (Auto) 4.2 L [place] % (Auto) Lymph # 0.3 L [place] # Seg Neutrophils % 89.6 H Seg Neuts % (Manual) Lymphocytes % (Manual) Seg Neutrophils # Seg Neutrophils # Man Lymphocytes # (Manual) D-Dimer POC ABG pH POC ABG pCO2 POC ABG pO2 Sodium Potassium Chloride Carbon Dioxide BUN Creatinine Glucose POC Glucose 257 H 223 H Calcium Phosphorus Albumin TSH Urine WBC (Auto) Urine Creatinine 07/16/16 07/16/16 07/16/16 09:54 11:54 17:48 WBC RBC Hgb Hct MCH RDW Plt Count Lymph % (Auto) [place] % (Auto) Lymph # [place] # Seg Neutrophils % Seg Neuts % (Manual) Lymphocytes % (Manual) Seg Neutrophils # Seg Neutrophils # Man Lymphocytes # (Manual) D-Dimer POC ABG pH POC ABG pCO2 POC ABG pO2 Sodium 148 H Potassium Chloride Carbon Dioxide 21 L BUN 146 H Creatinine 6.0 H Glucose 249 H POC Glucose 294 H 195 H Calcium 6.4 L Phosphorus Albumin TSH Urine WBC (Auto) Urine Creatinine 07/16/16 07/16/16 07/17/16 21:54 23:53 05:53 WBC RBC Hgb Hct MCH RDW Plt Count Lymph % (Auto) [place] % (Auto) Lymph # [place] # Seg Neutrophils % Seg Neuts % (Manual) Lymphocytes % (Manual) Seg Neutrophils # Seg Neutrophils # Man Lymphocytes # (Manual) D-Dimer POC ABG pH POC ABG pCO2 POC ABG pO2 Sodium Potassium Chloride Carbon Dioxide BUN Creatinine Glucose POC Glucose 161 H 171 H 208 H Calcium Phosphorus Albumin TSH Urine WBC (Auto) Urine Creatinine 07/17/16 07/17/16 07/17/16 06:52 06:52 11:28 WBC RBC 3.17 L Hgb 8.6 L Hct 26.4 L MCH 27 L RDW 17.2 H Plt Count Lymph % (Auto) [place] % (Auto) Lymph # [place] # Seg Neutrophils % Seg Neuts % (Manual) 90.0 H Lymphocytes % (Manual) 8.0 L Seg Neutrophils # Seg Neutrophils # Man Lymphocytes # (Manual) 0.6 L D-Dimer POC ABG pH POC ABG pCO2 POC ABG pO2 Sodium Potassium Chloride Carbon Dioxide BUN 87 H Creatinine 4.2 H Glucose 231 H POC Glucose 255 H Calcium 6.2 L Phosphorus 5.2 H Albumin TSH Urine WBC (Auto) Urine Creatinine 07/17/16 07/17/16 07/18/16 16:22 23:41 05:06 WBC RBC 3.25 L Hgb 8.8 L Hct 27.2 L MCH 27 L RDW 17.0 H Plt Count Lymph % (Auto) [place] % (Auto) Lymph # [place] # Seg Neutrophils % Seg Neuts % (Manual) 80.0 H Lymphocytes % (Manual) 10.0 L Seg Neutrophils # Seg Neutrophils # Man Lymphocytes # (Manual) 0.9 L D-Dimer POC ABG pH POC ABG pCO2 POC ABG pO2 Sodium Potassium Chloride Carbon Dioxide BUN Creatinine Glucose POC Glucose 263 H 195 H Calcium Phosphorus Albumin TSH Urine WBC (Auto) Urine Creatinine 07/18/16 07/18/16 07/18/16 05:06 06:52 11:52 WBC RBC Hgb Hct MCH RDW Plt Count Lymph % (Auto) [place] % (Auto) Lymph # [place] # Seg Neutrophils % Seg Neuts % (Manual) Lymphocytes % (Manual) Seg Neutrophils # Seg Neutrophils # Man Lymphocytes # (Manual) D-Dimer POC ABG pH POC ABG pCO2 POC ABG pO2 Sodium Potassium Chloride 97.7 L Carbon Dioxide BUN 51 H Creatinine 2.8 H Glucose 252 H POC Glucose 289 H 242 H Calcium 6.4 L Phosphorus Albumin TSH Urine WBC (Auto) Urine Creatinine 07/18/16 07/18/16 07/19/16 16:36 21:34 05:50 WBC RBC Hgb Hct MCH RDW Plt Count Lymph % (Auto) [place] % (Auto) Lymph # [place] # Seg Neutrophils % Seg Neuts % (Manual) Lymphocytes % (Manual) Seg Neutrophils # Seg Neutrophils # Man Lymphocytes # (Manual) D-Dimer POC ABG pH POC ABG pCO2 POC ABG pO2 Sodium Potassium Chloride Carbon Dioxide BUN Creatinine Glucose POC Glucose 221 H 210 H 273 H Calcium Phosphorus Albumin TSH Urine WBC (Auto) Urine Creatinine 07/19/16 07/19/16 07/19/16 07:09 17:06 21:56 WBC RBC Hgb Hct MCH RDW Plt Count Lymph % (Auto) [place] % (Auto) Lymph # [place] # Seg Neutrophils % Seg Neuts % (Manual) Lymphocytes % (Manual) Seg Neutrophils # Seg Neutrophils # Man Lymphocytes # (Manual) D-Dimer POC ABG pH POC ABG pCO2 POC ABG pO2 Sodium Potassium Chloride 96.2 L Carbon Dioxide BUN 81 H Creatinine 4.9 H D Glucose 260 H POC Glucose 143 H 148 H Calcium 6.0 L Phosphorus Albumin TSH Urine WBC (Auto) Urine Creatinine 07/20/16 07/20/16 07/20/16 05:21 06:29 11:01 WBC RBC Hgb Hct MCH RDW Plt Count Lymph % (Auto) [place] % (Auto) Lymph # [place] # Seg Neutrophils % Seg Neuts % (Manual) Lymphocytes % (Manual) Seg Neutrophils # Seg Neutrophils # Man Lymphocytes # (Manual) D-Dimer POC ABG pH POC ABG pCO2 POC ABG pO2 Sodium 136 L Potassium 3.4 L Chloride 94.4 L Carbon Dioxide BUN 43 H Creatinine 3.5 H Glucose 263 H POC Glucose 299 H 281 H Calcium 6.5 L Phosphorus Albumin TSH Urine WBC (Auto) Urine Creatinine 07/20/16 07/20/16 07/21/16 17:07 22:54 06:24 WBC RBC Hgb Hct MCH RDW Plt Count Lymph % (Auto) [place] % (Auto) Lymph # [place] # Seg Neutrophils % Seg Neuts % (Manual) Lymphocytes % (Manual) Seg Neutrophils # Seg Neutrophils # Man Lymphocytes # (Manual) D-Dimer POC ABG pH POC ABG pCO2 POC ABG pO2 Sodium Potassium Chloride Carbon Dioxide BUN Creatinine Glucose POC Glucose 253 H 209 H 346 H Calcium Phosphorus Albumin TSH Urine WBC (Auto) Urine Creatinine 07/21/16 07/21/16 07/21/16 07:25 15:46 21:23 WBC RBC Hgb Hct MCH RDW Plt Count Lymph % (Auto) [place] % (Auto) Lymph # [place] # Seg Neutrophils % Seg Neuts % (Manual) Lymphocytes % (Manual) Seg Neutrophils # Seg Neutrophils # Man Lymphocytes # (Manual) D-Dimer POC ABG pH POC ABG pCO2 POC ABG pO2 Sodium 133 L Potassium Chloride 90.7 L Carbon Dioxide BUN 71 H Creatinine 4.8 H Glucose 289 H POC Glucose 112 H 218 H Calcium 6.2 L Phosphorus Albumin TSH Urine WBC (Auto) Urine Creatinine 07/22/16 07/22/16 07/22/16 06:28 11:49 16:37 WBC RBC Hgb Hct MCH RDW Plt Count Lymph % (Auto) [place] % (Auto) Lymph # [place] # Seg Neutrophils % Seg Neuts % (Manual) Lymphocytes % (Manual) Seg Neutrophils # Seg Neutrophils # Man Lymphocytes # (Manual) D-Dimer POC ABG pH POC ABG pCO2 POC ABG pO2 Sodium Potassium Chloride Carbon Dioxide BUN Creatinine Glucose POC Glucose 316 H 211 H 185 H Calcium Phosphorus Albumin TSH Urine WBC (Auto) Urine Creatinine 07/22/16 07/23/16 07/23/16 20:24 05:19 12:10 WBC RBC Hgb Hct MCH RDW Plt Count Lymph % (Auto) [place] % (Auto) Lymph # [place] # Seg Neutrophils % Seg Neuts % (Manual) Lymphocytes % (Manual) Seg Neutrophils # Seg Neutrophils # Man Lymphocytes # (Manual) D-Dimer POC ABG pH POC ABG pCO2 POC ABG pO2 Sodium Potassium Chloride Carbon Dioxide BUN Creatinine Glucose POC Glucose 213 H 319 H 261 H Calcium Phosphorus Albumin TSH Urine WBC (Auto) Urine Creatinine 07/23/16 07/23/16 07/24/16 15:49 20:58 05:29 WBC RBC Hgb Hct MCH RDW Plt Count Lymph % (Auto) [place] % (Auto) Lymph # [place] # Seg Neutrophils % Seg Neuts % (Manual) Lymphocytes % (Manual) Seg Neutrophils # Seg Neutrophils # Man Lymphocytes # (Manual) D-Dimer POC ABG pH POC ABG pCO2 POC ABG pO2 Sodium Potassium Chloride Carbon Dioxide BUN Creatinine Glucose POC Glucose 271 H 191 H 279 H Calcium Phosphorus Albumin TSH Urine WBC (Auto) Urine Creatinine 07/24/16 07/24/16 07/24/16 05:53 16:20 21:31 WBC RBC Hgb Hct MCH RDW Plt Count Lymph % (Auto) [place] % (Auto) Lymph # [place] # Seg Neutrophils % Seg Neuts % (Manual) Lymphocytes % (Manual) Seg Neutrophils # Seg Neutrophils # Man Lymphocytes # (Manual) D-Dimer POC ABG pH POC ABG pCO2 POC ABG pO2 Sodium Potassium Chloride Carbon Dioxide BUN 89 H Creatinine 5.3 H Glucose 273 H POC Glucose 161 H 136 H Calcium 6.2 L Phosphorus Albumin TSH Urine WBC (Auto) Urine Creatinine 07/25/16 06:25 WBC RBC Hgb Hct MCH RDW Plt Count Lymph % (Auto) [place] % (Auto) Lymph # [place] # Seg Neutrophils % Seg Neuts % (Manual) Lymphocytes % (Manual) Seg Neutrophils # Seg Neutrophils # Man Lymphocytes # (Manual) D-Dimer POC ABG pH POC ABG pCO2 POC ABG pO2 Sodium Potassium Chloride Carbon Dioxide BUN Creatinine Glucose POC Glucose 311 H Calcium Phosphorus Albumin TSH Urine WBC (Auto) Urine Creatinine
[2016-07-25] MEDS: PEPCID PO SCH ×2 (10:45→14:58)
[2016-07-25] MEDS: NEURONTIN PO SCH ×3 (10:45→22:55)
--- NOTE | 2016-07-25 20:35 | Event Note ---
Date: 07/25/16 Set up for permcath today but patient was fed. NPO after MN. Plan for permcath/vas to perm tomorrow.
[2016-07-26] MEDS: NACL 0.9% 1000 ML 1,000 ML IV SCH (00:35)
[2016-07-26] MEDS: SYNTHROID PO SCH (07:33)
[2016-07-26] MEDS: HEPARIN SUB-Q SCH ×3 (07:35→22:56)
[2016-07-26] MEDS: NOVOLOG SUB-Q SCH ×5 (07:35→23:40)
[2016-07-26] MEDS: APRESOLINE FEEDTUBE SCH ×3 (07:38→22:57)
[2016-07-26] MEDS: NORMODYNE PO SCH ×3 (09:34→20:00)
[2016-07-26] MEDS: NEURONTIN PO SCH ×2 (10:07→22:55)
[2016-07-26] MEDS: PEPCID PO SCH (10:07)
--- NOTE | 2016-07-26 10:51 | Progress Note ---
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 hydralazine, labetolol with prn IV meds (4) Acute respiratory failure Current Visit: Yes Status: Resolved Plan to address problem: - resolved mostly - tapered off scheduled benadryl - tapered to pepcid daily - tapered of systemic steroids - prn BIPAP - continue bronchodilators and pulmonary toilet (5) Angioedema Current Visit: Yes Status: Acute Plan to address problem: - no obvious external edema - taper off anti-histamine therapy and steroids Subjective Date of service: 07/26/16 Principal diagnosis: Acute Respiratory Failure; Angioedema Interval history: Seen and examined at bedside; 24 hour events reviewed; nursing and respiratory care staff consulted; no adverse overnight events reported to me; awaiting permacath procedure but very lethargic; no emesis or overt aspiration Objective Vital Signs - 12hr 07/25/16 07/26/16 23:00 07:35 Temperature 97.7 F 97.6 F Pulse Rate [ 78 85 Right Radial] Respiratory 16 15 Rate Blood Pressure 107/53 112/55 [Right Arm] O2 Sat by Pulse 98 Oximetry Constitutional: no acute distress, lethargic, other (does not localize to sternal rub) Eyes: non-icteric ENT: oropharynx moist Neck: supple, no lymphadenopathy Effort: normal Ascultation: Bilateral: clear, diminished breath sounds (bases) Cardiovascular: regular rate and rhythm Gastrointestinal: normoactive bowel sounds, soft, non-tender, non-distended Integumentary: normal Extremities: no cyanosis, no edema, pulses normal, no ischemia or petechiae Neurologic: non-focal exam (grossly), pupils equal and round, CN II-XII normal CBC and BMP: 07/26/16 12:50 07/26/16 12:50 ABG, PT/INR, D-dimer: ABG POC ABG pH 7.529 (7.35-7.45) H 07/13/16 14:15 POC ABG pCO2 26.8 (35-45) L 07/13/16 14:15 POC ABG pO2 70 (80-105) L 07/13/16 14:15 POC ABG HCO3 22.3 07/13/16 14:15 POC ABG Total CO2 23 07/13/16 14:15 POC ABG O2 Sat 96 07/13/16 14:15 PT/INR, D-dimer PT 14.1 Sec. (12.2-14.9) 07/18/16 05:06 INR 1.10 (0.87-1.13) 07/18/16 05:06 D-Dimer 751.80 ng/mlDDU (0-234) H 07/11/16 12:22 Abnormal lab findings: Abnormal Labs 07/03/16 07/03/16 07/04/16 14:34 14:34 06:21 WBC 3.9 L RBC 3.16 L 3.04 L Hgb 8.5 L 8.0 L Hct 26.8 L 25.6 L MCH 27 L 26 L RDW 16.5 H 16.2 H Plt Count Lymph % (Auto) Hardy % (Auto) 10.7 H 10.7 H Lymph # 1.0 L Hardy # Seg Neutrophils % Seg Neuts % (Manual) Lymphocytes % (Manual) Seg Neutrophils # Seg Neutrophils # Man Lymphocytes # (Manual) D-Dimer POC ABG pH POC ABG pCO2 POC ABG pO2 Sodium Potassium Chloride 107.6 H Carbon Dioxide BUN 27 H Creatinine 2.6 H Glucose POC Glucose Calcium 8.0 L Phosphorus Albumin TSH Urine WBC (Auto) Urine Creatinine 07/04/16 07/04/16 07/04/16 06:21 11:30 16:33 WBC RBC Hgb Hct MCH RDW Plt Count Lymph % (Auto) Hardy % (Auto) Lymph # Hardy # Seg Neutrophils % Seg Neuts % (Manual) Lymphocytes % (Manual) Seg Neutrophils # Seg Neutrophils # Man Lymphocytes # (Manual) D-Dimer POC ABG pH POC ABG pCO2 POC ABG pO2 Sodium Potassium Chloride 107.4 H Carbon Dioxide 21 L BUN 27 H Creatinine 2.7 H Glucose POC Glucose 110 H 106 H Calcium 7.8 L Phosphorus Albumin TSH Urine WBC (Auto) Urine Creatinine 07/05/16 07/05/16 07/05/16 05:08 05:08 05:08 WBC 4.0 L RBC 2.87 L Hgb 7.7 L Hct 24.2 L MCH 27 L RDW 16.0 H Plt Count Lymph % (Auto) Hardy % (Auto) Lymph # Hardy # Seg Neutrophils % Seg Neuts % (Manual) Lymphocytes % (Manual) Seg Neutrophils # Seg Neutrophils # Man Lymphocytes # (Manual) D-Dimer POC ABG pH POC ABG pCO2 POC ABG pO2 Sodium Potassium Chloride Carbon Dioxide 21 L BUN 32 H Creatinine 3.7 H Glucose POC Glucose Calcium 7.8 L Phosphorus Albumin TSH 8.090 H Urine WBC (Auto) Urine Creatinine 07/05/16 07/06/16 07/06/16 11:45 01:18 01:18 WBC RBC Hgb 8.3 L Hct 25.9 L MCH RDW Plt Count Lymph % (Auto) Hardy % (Auto) Lymph # Hardy # Seg Neutrophils % Seg Neuts % (Manual) Lymphocytes % (Manual) Seg Neutrophils # Seg Neutrophils # Man Lymphocytes # (Manual) D-Dimer POC ABG pH POC ABG pCO2 POC ABG pO2 Sodium Potassium Chloride Carbon Dioxide BUN Creatinine Glucose POC Glucose Calcium Phosphorus Albumin TSH Urine WBC (Auto) 7.0 H Urine Creatinine 36.6 H 07/06/16 07/06/16 07/06/16 05:55 05:55 16:07 WBC 3.0 L RBC 2.79 L Hgb 7.5 L Hct 23.5 L MCH 27 L RDW 16.5 H Plt Count Lymph % (Auto) Hardy % (Auto) Lymph # Hardy # Seg Neutrophils % Seg Neuts % (Manual) Lymphocytes % (Manual) Seg Neutrophils # Seg Neutrophils # Man Lymphocytes # (Manual) D-Dimer POC ABG pH POC ABG pCO2 POC ABG pO2 Sodium Potassium Chloride 109.3 H Carbon Dioxide 20 L BUN 32 H Creatinine 3.4 H Glucose POC Glucose 117 H Calcium 7.5 L Phosphorus Albumin TSH Urine WBC (Auto) Urine Creatinine 07/07/16 07/07/16 07/08/16 06:19 16:13 00:09 WBC RBC Hgb Hct MCH RDW Plt Count Lymph % (Auto) Hardy % (Auto) Lymph # Hardy # Seg Neutrophils % Seg Neuts % (Manual) Lymphocytes % (Manual) Seg Neutrophils # Seg Neutrophils # Man Lymphocytes # (Manual) D-Dimer POC ABG pH POC ABG pCO2 POC ABG pO2 Sodium Potassium Chloride 111.1 H Carbon Dioxide 20 L BUN 31 H Creatinine 3.1 H Glucose POC Glucose 108 H 134 H Calcium 8.0 L Phosphorus Albumin TSH Urine WBC (Auto) Urine Creatinine 07/08/16 07/08/16 07/08/16 11:39 16:31 21:22 WBC RBC Hgb Hct MCH RDW Plt Count Lymph % (Auto) Hardy % (Auto) Lymph # Hardy # Seg Neutrophils % Seg Neuts % (Manual) Lymphocytes % (Manual) Seg Neutrophils # Seg Neutrophils # Man Lymphocytes # (Manual) D-Dimer POC ABG pH POC ABG pCO2 POC ABG pO2 Sodium Potassium Chloride Carbon Dioxide BUN Creatinine Glucose POC Glucose 119 H 130 H 152 H Calcium Phosphorus Albumin TSH Urine WBC (Auto) Urine Creatinine 07/09/16 07/09/16 07/09/16 05:52 05:52 06:02 WBC RBC 3.55 L Hgb 9.4 L Hct MCH 27 L RDW 17.1 H Plt Count Lymph % (Auto) Hardy % (Auto) Lymph # Hardy # Seg Neutrophils % Seg Neuts % (Manual) Lymphocytes % (Manual) Seg Neutrophils # Seg Neutrophils # Man Lymphocytes # (Manual) D-Dimer POC ABG pH POC ABG pCO2 POC ABG pO2 Sodium 147 H Potassium 5.4 H Chloride 112.8 H Carbon Dioxide 21 L BUN 30 H Creatinine 2.5 H Glucose 21 L* POC Glucose < 40 L Calcium Phosphorus Albumin TSH Urine WBC (Auto) Urine Creatinine 07/09/16 07/09/16 07/10/16 11:31 16:50 05:23 WBC RBC Hgb Hct MCH RDW Plt Count Lymph % (Auto) Hardy % (Auto) Lymph # Hardy # Seg Neutrophils % Seg Neuts % (Manual) Lymphocytes % (Manual) Seg Neutrophils # Seg Neutrophils # Man Lymphocytes # (Manual) D-Dimer POC ABG pH POC ABG pCO2 POC ABG pO2 Sodium Potassium Chloride Carbon Dioxide BUN Creatinine Glucose POC Glucose 114 H 149 H < 40 L Calcium Phosphorus Albumin TSH Urine WBC (Auto) Urine Creatinine 07/10/16 07/10/16 07/10/16 06:03 06:43 06:43 WBC RBC 2.90 L Hgb 7.7 L Hct 25.0 L MCH 27 L RDW 17.0 H Plt Count Lymph % (Auto) Hardy % (Auto) 10.4 H Lymph # 1.1 L Hardy # Seg Neutrophils % Seg Neuts % (Manual) Lymphocytes % (Manual) Seg Neutrophils # Seg Neutrophils # Man Lymphocytes # (Manual) D-Dimer POC ABG pH POC ABG pCO2 POC ABG pO2 Sodium 148 H Potassium 5.1 H Chloride 111.7 H Carbon Dioxide 20 L BUN 31 H Creatinine 2.4 H Glucose POC Glucose 211 H Calcium 8.0 L Phosphorus Albumin 3.5 L TSH Urine WBC (Auto) Urine Creatinine 07/10/16 07/11/16 07/11/16 14:55 05:37 05:47 WBC RBC Hgb 7.9 L Hct 25.5 L MCH RDW Plt Count Lymph % (Auto) Hardy % (Auto) Lymph # Hardy # Seg Neutrophils % Seg Neuts % (Manual) Lymphocytes % (Manual) Seg Neutrophils # Seg Neutrophils # Man Lymphocytes # (Manual) D-Dimer POC ABG pH POC ABG pCO2 POC ABG pO2 Sodium Potassium Chloride Carbon Dioxide BUN Creatinine Glucose POC Glucose < 40 L > 500 H Calcium Phosphorus Albumin TSH Urine WBC (Auto) Urine Creatinine 07/11/16 07/11/16 07/11/16 05:56 07:42 07:48 WBC RBC Hgb Hct MCH RDW Plt Count Lymph % (Auto) Hardy % (Auto) Lymph # Hardy # Seg Neutrophils % Seg Neuts % (Manual) Lymphocytes % (Manual) Seg Neutrophils # Seg Neutrophils # Man Lymphocytes # (Manual) D-Dimer POC ABG pH POC ABG pCO2 POC ABG pO2 Sodium Potassium Chloride Carbon Dioxide BUN Creatinine Glucose POC Glucose 262 H 56 L 54 L Calcium Phosphorus Albumin TSH Urine WBC (Auto) Urine Creatinine 07/11/16 07/11/16 07/11/16 08:34 08:50 09:53 WBC RBC Hgb Hct MCH RDW Plt Count Lymph % (Auto) Hardy % (Auto) Lymph # Hardy # Seg Neutrophils % Seg Neuts % (Manual) Lymphocytes % (Manual) Seg Neutrophils # Seg Neutrophils # Man Lymphocytes # (Manual) D-Dimer POC ABG pH POC ABG pCO2 31.1 L POC ABG pO2 108 H Sodium Potassium Chloride Carbon Dioxide BUN Creatinine Glucose POC Glucose 110 H 68 L Calcium Phosphorus Albumin TSH Urine WBC (Auto) Urine Creatinine 07/11/16 07/11/16 07/11/16 11:48 12:22 12:22 WBC 11.6 H RBC Hgb Hct MCH 27 L RDW 17.2 H Plt Count Lymph % (Auto) Hardy % (Auto) Lymph # Hardy # Seg Neutrophils % Seg Neuts % (Manual) 91.0 H Lymphocytes % (Manual) 5.0 L Seg Neutrophils # 10.8 H Seg Neutrophils # Man 10.6 H Lymphocytes # (Manual) 0.6 L D-Dimer 751.80 H POC ABG pH POC ABG pCO2 POC ABG pO2 Sodium Potassium Chloride Carbon Dioxide BUN Creatinine Glucose POC Glucose 118 H Calcium Phosphorus Albumin TSH Urine WBC (Auto) Urine Creatinine 07/11/16 07/11/16 07/11/16 12:22 12:29 15:23 WBC RBC Hgb Hct MCH RDW Plt Count Lymph % (Auto) Hardy % (Auto) Lymph # Hardy # Seg Neutrophils % Seg Neuts % (Manual) Lymphocytes % (Manual) Seg Neutrophils # Seg Neutrophils # Man Lymphocytes # (Manual) D-Dimer POC ABG pH POC ABG pCO2 28.4 L POC ABG pO2 Sodium Potassium 6.1 H* Chloride 109.4 H Carbon Dioxide 18 L BUN 30 H Creatinine 2.1 H Glucose 126 H POC Glucose 204 H Calcium Phosphorus Albumin TSH Urine WBC (Auto) Urine Creatinine 07/11/16 07/11/16 07/11/16 17:27 17:55 21:42 WBC RBC Hgb Hct MCH RDW Plt Count Lymph % (Auto) Hardy % (Auto) Lymph # Hardy # Seg Neutrophils % Seg Neuts % (Manual) Lymphocytes % (Manual) Seg Neutrophils # Seg Neutrophils # Man Lymphocytes # (Manual) D-Dimer POC ABG pH POC ABG pCO2 POC ABG pO2 Sodium 146 H Potassium 6.5 H* Chloride 109.7 H Carbon Dioxide 20 L BUN 32 H Creatinine 2.4 H Glucose 167 H POC Glucose 433 H 142 H Calcium Phosphorus Albumin TSH Urine WBC (Auto) Urine Creatinine 07/12/16 07/12/16 07/12/16 04:34 04:34 05:22 WBC 14.0 H RBC Hgb Hct MCH 27 L RDW 17.6 H Plt Count 113 L Lymph % (Auto) Hardy % (Auto) Lymph # Hardy # Seg Neutrophils % Seg Neuts % (Manual) 87.0 H Lymphocytes % (Manual) 11.0 L Seg Neutrophils # Seg Neutrophils # Man 12.2 H Lymphocytes # (Manual) D-Dimer POC ABG pH 7.452 H POC ABG pCO2 29.6 L POC ABG pO2 Sodium Potassium 6.8 H* Chloride 110.2 H Carbon Dioxide 16 L BUN 43 H Creatinine 2.9 H Glucose 113 H POC Glucose Calcium Phosphorus Albumin TSH Urine WBC (Auto) Urine Creatinine 07/12/16 07/12/16 07/12/16 13:24 17:28 21:11 WBC RBC Hgb Hct MCH RDW Plt Count Lymph % (Auto) Hardy % (Auto) Lymph # Hardy # Seg Neutrophils % Seg Neuts % (Manual) Lymphocytes % (Manual) Seg Neutrophils # Seg Neutrophils # Man Lymphocytes # (Manual) D-Dimer POC ABG pH POC ABG pCO2 POC ABG pO2 Sodium 150 H Potassium Chloride 108.9 H Carbon Dioxide 21 L BUN 52 H Creatinine 3.7 H Glucose 143 H POC Glucose 148 H 134 H Calcium 8.0 L Phosphorus Albumin TSH Urine WBC (Auto) Urine Creatinine 07/12/16 07/13/16 07/13/16 21:50 04:40 04:40 WBC 14.0 H RBC 3.50 L Hgb 9.3 L Hct 29.3 L MCH 27 L RDW 17.3 H Plt Count Lymph % (Auto) 4.9 L Hardy % (Auto) Lymph # 0.7 L Hardy # Seg Neutrophils % 90.0 H Seg Neuts % (Manual) 93.0 H Lymphocytes % (Manual) 5.0 L Seg Neutrophils # 12.6 H Seg Neutrophils # Man 13.0 H Lymphocytes # (Manual) 0.7 L D-Dimer POC ABG pH POC ABG pCO2 POC ABG pO2 Sodium 151 H Potassium Chloride 109.3 H Carbon Dioxide BUN 59 H Creatinine 4.0 H Glucose 63 L POC Glucose 156 H Calcium 7.7 L Phosphorus Albumin TSH Urine WBC (Auto) Urine Creatinine 07/13/16 07/13/16 07/13/16 06:10 06:40 08:03 WBC RBC Hgb Hct MCH RDW Plt Count Lymph % (Auto) Hardy % (Auto) Lymph # Hardy # Seg Neutrophils % Seg Neuts % (Manual) Lymphocytes % (Manual) Seg Neutrophils # Seg Neutrophils # Man Lymphocytes # (Manual) D-Dimer POC ABG pH POC ABG pCO2 POC ABG pO2 Sodium Potassium Chloride Carbon Dioxide BUN Creatinine Glucose POC Glucose 68 L 176 H 141 H Calcium Phosphorus Albumin TSH Urine WBC (Auto) Urine Creatinine 12/07/13/16 07/13/16 09:17 12:30 14:15 WBC RBC Hgb Hct MCH RDW Plt Count Lymph % (Auto) Hardy % (Auto) Lymph # Hardy # Seg Neutrophils % Seg Neuts % (Manual) Lymphocytes % (Manual) Seg Neutrophils # Seg Neutrophils # Man Lymphocytes # (Manual) D-Dimer POC ABG pH 7.475 H 7.529 H POC ABG pCO2 33.4 L 26.8 L POC ABG pO2 110 H 70 L Sodium Potassium Chloride Carbon Dioxide BUN Creatinine Glucose POC Glucose 177 H Calcium Phosphorus Albumin TSH Urine WBC (Auto) Urine Creatinine 07/13/16 07/13/16 07/13/16 15:28 17:57 22:10 WBC RBC Hgb Hct MCH RDW Plt Count Lymph % (Auto) Hardy % (Auto) Lymph # Hardy # Seg Neutrophils % Seg Neuts % (Manual) Lymphocytes % (Manual) Seg Neutrophils # Seg Neutrophils # Man Lymphocytes # (Manual) D-Dimer POC ABG pH POC ABG pCO2 POC ABG pO2 Sodium Potassium Chloride Carbon Dioxide BUN Creatinine Glucose POC Glucose 122 H 166 H 197 H Calcium Phosphorus Albumin TSH Urine WBC (Auto) Urine Creatinine 07/14/16 07/14/16 07/14/16 02:00 04:21 04:21 WBC RBC 3.01 L Hgb 8.1 L Hct 25.3 L MCH 27 L RDW 17.9 H Plt Count Lymph % (Auto) 6.1 L Hardy % (Auto) Lymph # 0.5 L Hardy # Seg Neutrophils % 89.9 H Seg Neuts % (Manual) Lymphocytes % (Manual) Seg Neutrophils # Seg Neutrophils # Man Lymphocytes # (Manual) D-Dimer POC ABG pH POC ABG pCO2 POC ABG pO2 Sodium 150 H Potassium Chloride 107.3 H Carbon Dioxide 21 L BUN 82 H Creatinine 4.8 H Glucose 176 H POC Glucose 166 H Calcium 6.8 L Phosphorus Albumin TSH Urine WBC (Auto) Urine Creatinine 07/14/16 07/14/16 07/14/16 05:32 09:42 22:32 WBC RBC Hgb Hct MCH RDW Plt Count Lymph % (Auto) Hardy % (Auto) Lymph # Hardy # Seg Neutrophils % Seg Neuts % (Manual) Lymphocytes % (Manual) Seg Neutrophils # Seg Neutrophils # Man Lymphocytes # (Manual) D-Dimer POC ABG pH POC ABG pCO2 POC ABG pO2 Sodium Potassium Chloride Carbon Dioxide BUN Creatinine Glucose POC Glucose 202 H 216 H 191 H Calcium Phosphorus Albumin TSH Urine WBC (Auto) Urine Creatinine 07/15/16 07/15/16 07/15/16 04:46 04:56 04:56 WBC RBC 3.04 L Hgb 8.2 L Hct 25.8 L MCH 27 L RDW 17.3 H Plt Count Lymph % (Auto) 4.2 L Hardy % (Auto) 11.8 H Lymph # 0.4 L Hardy # 1.1 H Seg Neutrophils % 83.9 H Seg Neuts % (Manual) Lymphocytes % (Manual) Seg Neutrophils # Seg Neutrophils # Man Lymphocytes # (Manual) D-Dimer POC ABG pH POC ABG pCO2 POC ABG pO2 Sodium 147 H Potassium 3.4 L Chloride Carbon Dioxide 20 L BUN 109 H Creatinine 5.2 H Glucose 242 H POC Glucose 275 H Calcium 6.3 L Phosphorus Albumin TSH Urine WBC (Auto) Urine Creatinine 07/15/16 07/15/16 07/15/16 11:32 16:52 20:41 WBC RBC Hgb Hct MCH RDW Plt Count Lymph % (Auto) Hardy % (Auto) Lymph # Hardy # Seg Neutrophils % Seg Neuts % (Manual) Lymphocytes % (Manual) Seg Neutrophils # Seg Neutrophils # Man Lymphocytes # (Manual) D-Dimer POC ABG pH POC ABG pCO2 POC ABG pO2 Sodium Potassium Chloride Carbon Dioxide BUN Creatinine Glucose POC Glucose 250 H 195 H 219 H Calcium Phosphorus Albumin TSH Urine WBC (Auto) Urine Creatinine 07/16/16 07/16/16 07/16/16 00:37 05:47 09:54 WBC RBC 3.20 L Hgb 8.6 L Hct 27.3 L MCH 27 L RDW 17.1 H Plt Count Lymph % (Auto) 4.2 L Hardy % (Auto) Lymph # 0.3 L Hardy # Seg Neutrophils % 89.6 H Seg Neuts % (Manual) Lymphocytes % (Manual) Seg Neutrophils # Seg Neutrophils # Man Lymphocytes # (Manual) D-Dimer POC ABG pH POC ABG pCO2 POC ABG pO2 Sodium Potassium Chloride Carbon Dioxide BUN Creatinine Glucose POC Glucose 257 H 223 H Calcium Phosphorus Albumin TSH Urine WBC (Auto) Urine Creatinine 07/16/16 07/16/16 07/16/16 09:54 11:54 17:48 WBC RBC Hgb Hct MCH RDW Plt Count Lymph % (Auto) Hardy % (Auto) Lymph # Hardy # Seg Neutrophils % Seg Neuts % (Manual) Lymphocytes % (Manual) Seg Neutrophils # Seg Neutrophils # Man Lymphocytes # (Manual) D-Dimer POC ABG pH POC ABG pCO2 POC ABG pO2 Sodium 148 H Potassium Chloride Carbon Dioxide 21 L BUN 146 H Creatinine 6.0 H Glucose 249 H POC Glucose 294 H 195 H Calcium 6.4 L Phosphorus Albumin TSH Urine WBC (Auto) Urine Creatinine 07/16/16 07/16/16 07/17/16 21:54 23:53 05:53 WBC RBC Hgb Hct MCH RDW Plt Count Lymph % (Auto) Hardy % (Auto) Lymph # Hardy # Seg Neutrophils % Seg Neuts % (Manual) Lymphocytes % (Manual) Seg Neutrophils # Seg Neutrophils # Man Lymphocytes # (Manual) D-Dimer POC ABG pH POC ABG pCO2 POC ABG pO2 Sodium Potassium Chloride Carbon Dioxide BUN Creatinine Glucose POC Glucose 161 H 171 H 208 H Calcium Phosphorus Albumin TSH Urine WBC (Auto) Urine Creatinine 07/17/16 07/17/16 07/17/16 06:52 06:52 11:28 WBC RBC 3.17 L Hgb 8.6 L Hct 26.4 L MCH 27 L RDW 17.2 H Plt Count Lymph % (Auto) Hardy % (Auto) Lymph # Hardy # Seg Neutrophils % Seg Neuts % (Manual) 90.0 H Lymphocytes % (Manual) 8.0 L Seg Neutrophils # Seg Neutrophils # Man Lymphocytes # (Manual) 0.6 L D-Dimer POC ABG pH POC ABG pCO2 POC ABG pO2 Sodium Potassium Chloride Carbon Dioxide BUN 87 H Creatinine 4.2 H Glucose 231 H POC Glucose 255 H Calcium 6.2 L Phosphorus 5.2 H Albumin TSH Urine WBC (Auto) Urine Creatinine 07/17/16 07/17/16 07/18/16 16:22 23:41 05:06 WBC RBC 3.25 L Hgb 8.8 L Hct 27.2 L MCH 27 L RDW 17.0 H Plt Count Lymph % (Auto) Hardy % (Auto) Lymph # Hardy # Seg Neutrophils % Seg Neuts % (Manual) 80.0 H Lymphocytes % (Manual) 10.0 L Seg Neutrophils # Seg Neutrophils # Man Lymphocytes # (Manual) 0.9 L D-Dimer POC ABG pH POC ABG pCO2 POC ABG pO2 Sodium Potassium Chloride Carbon Dioxide BUN Creatinine Glucose POC Glucose 263 H 195 H Calcium Phosphorus Albumin TSH Urine WBC (Auto) Urine Creatinine 07/18/16 07/18/16 07/18/16 05:06 06:52 11:52 WBC RBC Hgb Hct MCH RDW Plt Count Lymph % (Auto) Hardy % (Auto) Lymph # Hardy # Seg Neutrophils % Seg Neuts % (Manual) Lymphocytes % (Manual) Seg Neutrophils # Seg Neutrophils # Man Lymphocytes # (Manual) D-Dimer POC ABG pH POC ABG pCO2 POC ABG pO2 Sodium Potassium Chloride 97.7 L Carbon Dioxide BUN 51 H Creatinine 2.8 H Glucose 252 H POC Glucose 289 H 242 H Calcium 6.4 L Phosphorus Albumin TSH Urine WBC (Auto) Urine Creatinine 07/18/16 07/18/16 07/19/16 16:36 21:34 05:50 WBC RBC Hgb Hct MCH RDW Plt Count Lymph % (Auto) Hardy % (Auto) Lymph # Hardy # Seg Neutrophils % Seg Neuts % (Manual) Lymphocytes % (Manual) Seg Neutrophils # Seg Neutrophils # Man Lymphocytes # (Manual) D-Dimer POC ABG pH POC ABG pCO2 POC ABG pO2 Sodium Potassium Chloride Carbon Dioxide BUN Creatinine Glucose POC Glucose 221 H 210 H 273 H Calcium Phosphorus Albumin TSH Urine WBC (Auto) Urine Creatinine 07/19/16 07/19/16 07/19/16 07:09 17:06 21:56 WBC RBC Hgb Hct MCH RDW Plt Count Lymph % (Auto) Hardy % (Auto) Lymph # Hardy # Seg Neutrophils % Seg Neuts % (Manual) Lymphocytes % (Manual) Seg Neutrophils # Seg Neutrophils # Man Lymphocytes # (Manual) D-Dimer POC ABG pH POC ABG pCO2 POC ABG pO2 Sodium Potassium Chloride 96.2 L Carbon Dioxide BUN 81 H Creatinine 4.9 H D Glucose 260 H POC Glucose 143 H 148 H Calcium 6.0 L Phosphorus Albumin TSH Urine WBC (Auto) Urine Creatinine 07/20/16 07/20/16 07/20/16 05:21 06:29 11:01 WBC RBC Hgb Hct MCH RDW Plt Count Lymph % (Auto) Hardy % (Auto) Lymph # Hardy # Seg Neutrophils % Seg Neuts % (Manual) Lymphocytes % (Manual) Seg Neutrophils # Seg Neutrophils # Man Lymphocytes # (Manual) D-Dimer POC ABG pH POC ABG pCO2 POC ABG pO2 Sodium 136 L Potassium 3.4 L Chloride 94.4 L Carbon Dioxide BUN 43 H Creatinine 3.5 H Glucose 263 H POC Glucose 299 H 281 H Calcium 6.5 L Phosphorus Albumin TSH Urine WBC (Auto) Urine Creatinine 07/20/16 07/20/16 07/21/16 17:07 22:54 06:24 WBC RBC Hgb Hct MCH RDW Plt Count Lymph % (Auto) Hardy % (Auto) Lymph # Hardy # Seg Neutrophils % Seg Neuts % (Manual) Lymphocytes % (Manual) Seg Neutrophils # Seg Neutrophils # Man Lymphocytes # (Manual) D-Dimer POC ABG pH POC ABG pCO2 POC ABG pO2 Sodium Potassium Chloride Carbon Dioxide BUN Creatinine Glucose POC Glucose 253 H 209 H 346 H Calcium Phosphorus Albumin TSH Urine WBC (Auto) Urine Creatinine 07/21/16 07/21/16 07/21/16 07:25 15:46 21:23 WBC RBC Hgb Hct MCH RDW Plt Count Lymph % (Auto) Hardy % (Auto) Lymph # Hardy # Seg Neutrophils % Seg Neuts % (Manual) Lymphocytes % (Manual) Seg Neutrophils # Seg Neutrophils # Man Lymphocytes # (Manual) D-Dimer POC ABG pH POC ABG pCO2 POC ABG pO2 Sodium 133 L Potassium Chloride 90.7 L Carbon Dioxide BUN 71 H Creatinine 4.8 H Glucose 289 H POC Glucose 112 H 218 H Calcium 6.2 L Phosphorus Albumin TSH Urine WBC (Auto) Urine Creatinine 07/22/16 07/22/16 07/22/16 06:28 11:49 16:37 WBC RBC Hgb Hct MCH RDW Plt Count Lymph % (Auto) Hardy % (Auto) Lymph # Hardy # Seg Neutrophils % Seg Neuts % (Manual) Lymphocytes % (Manual) Seg Neutrophils # Seg Neutrophils # Man Lymphocytes # (Manual) D-Dimer POC ABG pH POC ABG pCO2 POC ABG pO2 Sodium Potassium Chloride Carbon Dioxide BUN Creatinine Glucose POC Glucose 316 H 211 H 185 H Calcium Phosphorus Albumin TSH Urine WBC (Auto) Urine Creatinine 07/22/16 07/23/16 07/23/16 20:24 05:19 12:10 WBC RBC Hgb Hct MCH RDW Plt Count Lymph % (Auto) Hardy % (Auto) Lymph # Hardy # Seg Neutrophils % Seg Neuts % (Manual) Lymphocytes % (Manual) Seg Neutrophils # Seg Neutrophils # Man Lymphocytes # (Manual) D-Dimer POC ABG pH POC ABG pCO2 POC ABG pO2 Sodium Potassium Chloride Carbon Dioxide BUN Creatinine Glucose POC Glucose 213 H 319 H 261 H Calcium Phosphorus Albumin TSH Urine WBC (Auto) Urine Creatinine 07/23/16 07/23/16 07/24/16 15:49 20:58 05:29 WBC RBC Hgb Hct MCH RDW Plt Count Lymph % (Auto) Hardy % (Auto) Lymph # Hardy # Seg Neutrophils % Seg Neuts % (Manual) Lymphocytes % (Manual) Seg Neutrophils # Seg Neutrophils # Man Lymphocytes # (Manual) D-Dimer POC ABG pH POC ABG pCO2 POC ABG pO2 Sodium Potassium Chloride Carbon Dioxide BUN Creatinine Glucose POC Glucose 271 H 191 H 279 H Calcium Phosphorus Albumin TSH Urine WBC (Auto) Urine Creatinine 07/24/16 07/24/16 07/24/16 05:53 16:20 21:31 WBC RBC Hgb Hct MCH RDW Plt Count Lymph % (Auto) Hardy % (Auto) Lymph # Hardy # Seg Neutrophils % Seg Neuts % (Manual) Lymphocytes % (Manual) Seg Neutrophils # Seg Neutrophils # Man Lymphocytes # (Manual) D-Dimer POC ABG pH POC ABG pCO2 POC ABG pO2 Sodium Potassium Chloride Carbon Dioxide BUN 89 H Creatinine 5.3 H Glucose 273 H POC Glucose 161 H 136 H Calcium 6.2 L Phosphorus Albumin TSH Urine WBC (Auto) Urine Creatinine 07/25/16 07/25/16 07/25/16 06:25 11:56 16:10 WBC RBC Hgb Hct MCH RDW Plt Count Lymph % (Auto) Hardy % (Auto) Lymph # Hardy # Seg Neutrophils % Seg Neuts % (Manual) Lymphocytes % (Manual) Seg Neutrophils # Seg Neutrophils # Man Lymphocytes # (Manual) D-Dimer POC ABG pH POC ABG pCO2 POC ABG pO2 Sodium Potassium Chloride Carbon Dioxide BUN Creatinine Glucose POC Glucose 311 H 164 H 249 H Calcium Phosphorus Albumin TSH Urine WBC (Auto) Urine Creatinine 07/25/16 07/26/16 21:13 06:19 WBC RBC Hgb Hct MCH RDW Plt Count Lymph % (Auto) Hardy % (Auto) Lymph # Hardy # Seg Neutrophils % Seg Neuts % (Manual) Lymphocytes % (Manual) Seg Neutrophils # Seg Neutrophils # Man Lymphocytes # (Manual) D-Dimer POC ABG pH POC ABG pCO2 POC ABG pO2 Sodium Potassium Chloride Carbon Dioxide BUN Creatinine Glucose POC Glucose 194 H 280 H Calcium Phosphorus Albumin TSH Urine WBC (Auto) Urine Creatinine
[2016-07-26 13:09] LABS: ISTAT Base Excess 3; ISTAT DEVICE 0; ISTAT HCO3 25.7; ISTAT PCO2 31.3 (35-45); ISTAT PH 7.523 (7.35-7.45); ISTAT PO2 96 (80-105); ISTAT SO2 98; ISTAT TCO2 27
[2016-07-26 13:17] LABS: Basophils % (Auto) 0.2 % (0.0-1.8); Eosinophils % (Auto) 0.4 % (0.0-4.3); Hemoglobin 6.5 gm/dl (10.1-14.3); Mean Corpuscular HGB Conc 33 % (30-34); Mean Corpuscular Hemoglobin 28 pg (28-32); Mean Corpuscular Volume 85 fl (79-97); Platelet Count 135 K/mm3 (140-440); Red Blood Count 2.35 M/mm3 (3.65-5.03); Red Cell Distribution Width 18.4 % (13.2-15.2); White Blood Count 7.6 K/mm3 (4.5-11.0)
[2016-07-26 13:39] LABS: BUN/Creatinine Ratio 13.67; Calcium 6.1 mg/dL (8.4-10.2); Chloride 98.9 mmol/L (98-107); Potassium 3.6 mmol/L (3.6-5.0)
[2016-07-26] MEDS ORDERED: NACL 0.9% 500 ML 500 ML IV ONE (13:42)
[2016-07-26] MEDS ORDERED: HEPARIN/NS 5000 UNIT/500ML(CATH LAB) 500 ML IR ONE (14:11)
[2016-07-26] MEDS ORDERED: HEPARIN 10,000 UNITS/10 ML ONE (14:12)
[2016-07-26] MEDS ORDERED: XYLOCAINE 1%/ EPI 1:100,000 INFILTRATI ONE (14:12)
[2016-07-26] MEDS ORDERED: ANCEF/STERILE WATER 2 GM/20 ML 20 ML IV ONE (14:12)
[2016-07-26] MEDS ORDERED: NACL 0.9% 100 ML ONE (14:15)
--- NOTE | 2016-07-26 15:02 | Operative Report ---
Operative Report Operative Report: EXAM: 1. Ultrasound-guided puncture of the right internal jugular vein 2. Fluoroscopic-guided placement of a right internal jugular tunneled cuffed hemodialysis catheter. DATE: 07/26/16 INDICATION: End-stage renal disease requiring hemodialysis access. MEDICATIONS: Please see nursing report for full details. DEVICES: 27 cm tip to cuff 15 Fr dual lumen hemodialysis catheter FIELD COUNSEL: BARBARA CROWDER MD CONTRAST: None PROCEDURE: The risks, benefits, and alternatives were discussed and informed consent was obtained. The patient was transported to the angiography suite in satisfactory/ stable condition and was transported onto the angiography table. The patient's right internal jugular vein was assessed with ultrasound and determined to be patent prior to procedure. The patient was prepped and draped in a sterile fashion. The puncture site was anesthetized. Under sonographic guidance, the right internal jugular vein was punctured with a 21-gauge micropuncture needle and a 0.018 inch wire was advanced into the inferior vena cava. The micropuncture needle was exchanged for a transitional dilator and the wire was retracted into the right atrium to yuko intravascular distance. The wire and inner dilator were removed. 0.035 inch wire was advanced through the transitional dilator into the inferior vena cava. A suitable exit site was identified on the patient's chest inferior and lateral to the venotomy. The site was anesthetized with local anesthetic and the track was anesthetized. Dermatotomy was made. The PermCath was attached to the tunneling device and tunneled between the dermatotomy to the venotomy. Over the 0.035 inch wire, serial dilatation was performed with ultimate placement of a peel-away sheath. The catheter was advanced through the peel- away sheath after the wire was removed and positioned centrally under fluoroscopic guidance. The peel-away sheath was removed. 4-0 Vicryl suture was used to close the venotomy and Dermabond was then applied. 2-0 Ethilon suture was used to secure the catheter at the dermatotomy. The catheter was charged with heparin 1000 units/mL space. The patient was transferred from the angiography suite back to the floor in stable condition. FINDINGS: 1. Excellent flow was obtained through the dialysis catheter with 20 mL syringes. 2. The catheter tip is in the right atrium. IMPRESSION: 1. Successful ultrasound and fluoroscopically guided placement of a right internal jugular tunneled cuffed hemodialysis catheter.
--- NOTE | 2016-07-26 18:17 | Progress Note ---
Assessment and Plan Assessment and plan: Severe microcytic anemia * transfuse 2 units of PRBC * get stool for occult blood * could be due to CKD Acute hypoxic respiratory failure * Resolved, s/p extubation, Off BiPAP * On oxygen support Angioedema * Patient is now extubated and doing well. * Repeat swallow study was unsuccessfull * GI following for PEG placement, but waiting for family consent Urinary tract infection * Urine culture positive for Klebsiella * Treated with Rocephin, Acute renal failurevon CKD stage IV. * Etiology likely secondary to vasomotor nephropathy versus interstitial nephritis from initial treatment with Bactrim for UTI. * Patient is on hemodialysis, plan for perm cath placement today Hyperkalemia. * improved after dialysis DM2 * Monitor blood glucose closely, SSI Toxic metabolic encephalopathy. * Continue to treat underlying causes. * Continue supportive care Hypothyroidism. * Continue Synthroid. Hypertension * Continue current antihypertensive and adjust medications as needed * Hydralazine when necessary Left upper extremity swelling. * Ultrasound showed SVT in the cephalic vein * conservative management History Interval history: Pt lying in bed, nonverbal, no reported nursing events. Pending approval for PEG placement from family. As per family request repeat swallow evaluation was unsuccessful. Pt high risk for aspiration. Pt unable to tolerate swallow evaluation. s/p perm cath placement today. CM notified for family meeting. Hospitalist Physical - Physical exam Narrative exam: General appearance: Present: no acute distress, obese - EENT Eyes: Present: PERRL - Neck Neck: Present: supple - Respiratory Respiratory: bilateral: diminished - Cardiovascular Rhythm: regular Heart Sounds: Present: S1 & S2 - Extremities Extremity abnormal: edema Peripheral Pulses: within normal limits - Abdominal General gastrointestinal: soft, non-tender, non-distended, no hepatomegaly, no splenomegaly - Integumentary Integumentary: Present: clear, dry, decreased turgor - Psychiatric Psychiatric: no intact judgment & insight, no memory intact - Constitutional Vitals: Temp Pulse Resp BP Pulse Ox 97.6 F 77 20 132/58 98 07/26/16 18:09 07/26/16 18:09 07/26/16 18:09 07/26/16 18:09 07/25/16 23:00 General appearance: Present: no acute distress, obese Results - Labs CBC & Chem 7: 07/26/16 12:50 07/26/16 12:50 Labs: Laboratory Last Values WBC 7.6 K/mm3 (4.5-11.0) 07/26/16 12:50 RBC 2.35 M/mm3 (3.65-5.03) L 07/26/16 12:50 Hgb 6.5 gm/dl (10.1-14.3) L 07/26/16 12:50 Hct 20.0 % (30.3-42.9) L 07/26/16 12:50 MCV 85 fl (79-97) 07/26/16 12:50 MCH 28 pg (28-32) 07/26/16 12:50 MCHC 33 % (30-34) 07/26/16 12:50 RDW 18.4 % (13.2-15.2) H 07/26/16 12:50 Plt Count 135 K/mm3 (140-440) L 07/26/16 12:50 Lymph % (Auto) 7.7 % (13.4-35.0) L 07/26/16 12:50 [place] % (Auto) 4.9 % (0.0-7.3) 07/26/16 12:50 Eos % (Auto) 0.4 % (0.0-4.3) 07/26/16 12:50 Baso % (Auto) 0.2 % (0.0-1.8) 07/26/16 12:50 Lymph # 0.6 K/mm3 (1.2-5.4) L 07/26/16 12:50 [place] # 0.4 K/mm3 (0.0-0.8) 07/26/16 12:50 Eos # 0.0 K/mm3 (0.0-0.4) 07/26/16 12:50 Baso # 0.0 K/mm3 (0.0-0.1) 07/26/16 12:50 Add Manual Diff Complete 07/18/16 05:06 Total Counted 100 07/18/16 05:06 Seg Neutrophils % 86.8 % (40.0-70.0) H 07/26/16 12:50 Seg Neuts % (Manual) 80.0 % (40.0-70.0) H 07/18/16 05:06 Band Neutrophils % 4.0 % 07/18/16 05:06 Lymphocytes % (Manual) 10.0 % (13.4-35.0) L 07/18/16 05:06 Reactive Lymphs % (Man) 0 % 07/18/16 05:06 Monocytes % (Manual) 6.0 % (0.0-7.3) 07/18/16 05:06 Eosinophils % (Manual) 0 % (0.0-4.3) 07/17/16 06:52 Basophils % (Manual) 0 % (0.0-1.8) 07/17/16 06:52 Metamyelocytes % 0 % 07/18/16 05:06 Myelocytes % 0 % 07/18/16 05:06 Promyelocytes % 0 % 07/18/16 05:06 Blast Cells % 0 % 07/18/16 05:06 Nucleated RBC % Not Reportable 07/18/16 05:06 Seg Neutrophils # 6.6 K/mm3 (1.8-7.7) 07/26/16 12:50 Seg Neutrophils # Man 6.9 K/mm3 (1.8-7.7) 07/18/16 05:06 Band Neutrophils # 0.3 K/mm3 07/18/16 05:06 Lymphocytes # (Manual) 0.9 K/mm3 (1.2-5.4) L 07/18/16 05:06 Abs React Lymphs (Man) 0.0 K/mm3 07/18/16 05:06 Monocytes # (Manual) 0.5 K/mm3 (0.0-0.8) 07/18/16 05:06 Eosinophils # (Manual) 0.0 K/mm3 (0.0-0.4) 07/18/16 05:06 Basophils # (Manual) 0.0 K/mm3 (0.0-0.1) 07/18/16 05:06 Metamyelocytes # 0.0 K/mm3 07/18/16 05:06 Myelocytes # 0.0 K/mm3 07/18/16 05:06 Promyelocytes # 0.0 K/mm3 07/18/16 05:06 Blast Cells # 0.0 K/mm3 07/18/16 05:06 WBC Morphology Not Reportable 07/18/16 05:06 Hypersegmented Neuts Not Reportable 07/18/16 05:06 Hyposegmented Neuts Not Reportable 07/18/16 05:06 Hypogranular Neuts Not Reportable 07/18/16 05:06 Smudge Cells Not Reportable 07/18/16 05:06 Toxic Granulation Not Reportable 07/18/16 05:06 Toxic Vacuolation Not Reportable 07/18/16 05:06 Dohle Bodies Not Reportable 07/18/16 05:06 Pelger-Huet Anomaly Not Reportable 07/18/16 05:06 Shagufta Rods Not Reportable 07/18/16 05:06 Platelet Estimate Not Reportable 07/18/16 05:06 Clumped Platelets Not Reportable 07/18/16 05:06 Plt Clumps, EDTA Not Reportable 07/18/16 05:06 Large Platelets Not Reportable 07/18/16 05:06 Giant Platelets Not Reportable 07/18/16 05:06 Platelet Satelliting Not Reportable 07/18/16 05:06 Plt Morphology Comment Not Reportable 07/18/16 05:06 RBC Morphology Not Reportable 07/18/16 05:06 Dimorphic RBCs Not Reportable 07/18/16 05:06 Polychromasia Not Reportable 07/18/16 05:06 Hypochromasia Not Reportable 07/18/16 05:06 Poikilocytosis Not Reportable 07/18/16 05:06 Anisocytosis 1+ 07/18/16 05:06 Microcytosis Not Reportable 07/18/16 05:06 Macrocytosis Not Reportable 07/18/16 05:06 Spherocytes Not Reportable 07/18/16 05:06 Pappenheimer Bodies Not Reportable 07/18/16 05:06 Sickle Cells Not Reportable 07/18/16 05:06 Target Cells Not Reportable 07/18/16 05:06 Tear Drop Cells Not Reportable 07/18/16 05:06 Ovalocytes Not Reportable 07/18/16 05:06 Helmet Cells Not Reportable 07/18/16 05:06 Pérez-Roby Bodies Not Reportable 07/18/16 05:06 [place] Rings Not Reportable 07/18/16 05:06 Dickinson Cells Not Reportable 07/18/16 05:06 Bite Cells Not Reportable 07/18/16 05:06 Crenated Cell Not Reportable 07/18/16 05:06 Elliptocytes Few 07/18/16 05:06 Acanthocytes (Spur) Not Reportable 07/18/16 05:06 Rouleaux Not Reportable 07/18/16 05:06 Hemoglobin C Crystals Not Reportable 07/18/16 05:06 Schistocytes Not Reportable 07/18/16 05:06 Malaria parasites Not Reportable 07/18/16 05:06 Kaushik Bodies Not Reportable 07/18/16 05:06 Hem Pathologist Commnt No 07/18/16 05:06 PT 14.1 Sec. (12.2-14.9) 07/18/16 05:06 INR 1.10 (0.87-1.13) 07/18/16 05:06 APTT 34.8 Sec. (24.2-36.6) 07/18/16 05:06 D-Dimer 751.80 ng/mlDDU (0-234) H 07/11/16 12:22 POC ABG pH 7.523 (7.35-7.45) H 07/26/16 13:02 POC ABG pCO2 31.3 (35-45) L 07/26/16 13:02 POC ABG pO2 96 (80-105) 07/26/16 13:02 POC ABG HCO3 25.7 07/26/16 13:02 POC ABG Total CO2 27 07/26/16 13:02 POC ABG O2 Sat 98 07/26/16 13:02 POC ABG Base Excess 3 07/26/16 13:02 FiO2 21 % 07/26/16 13:02 Sodium 141 mmol/L (137-145) 07/26/16 12:50 Potassium 3.6 mmol/L (3.6-5.0) 07/26/16 12:50 Chloride 98.9 mmol/L (98-107) 07/26/16 12:50 Carbon Dioxide 24 mmol/L (22-30) 07/26/16 12:50 Anion Gap 22 mmol/L 07/26/16 12:50 BUN 67 mg/dL (7-17) H 07/26/16 12:50 Creatinine 4.9 mg/dL (0.7-1.2) H 07/26/16 12:50 Estimated GFR 11 ml/min 07/26/16 12:50 BUN/Creatinine Ratio 13.67 % 07/26/16 12:50 Glucose 139 mg/dL (65-100) H 07/26/16 12:50 POC Glucose 191 (70-105) H 07/26/16 11:31 Hemoglobin A1c 5.6 % (4-6) 07/15/16 04:56 Lactic Acid 0.8 mmol/L (0.7-2.0) 07/19/16 00:37 Calcium 6.1 mg/dL (8.4-10.2) L 07/26/16 12:50 Phosphorus 5.2 mg/dL (2.5-4.5) H 07/17/16 06:52 Magnesium 1.9 mg/dL (1.7-2.3) 07/17/16 06:52 Total Bilirubin < 0.2 mg/dL (0.1-1.2) 07/10/16 06:43 AST 17 units/L (5-40) 07/10/16 06:43 ALT 9 units/L (7-56) 07/10/16 06:43 Alkaline Phosphatase 62 units/L (35-129) 07/10/16 06:43 Total Creatine Kinase 131 units/L (30-135) 07/11/16 12:22 CK-MB (CK-2) 2.0 ng/mL (0.0-4.0) 07/11/16 12:22 CK-MB (CK-2) Rel Index 1.5 (0-4) 07/11/16 12:22 Troponin T < 0.010 ng/mL (0.00-0.029) 07/11/16 12:22 Total Protein 6.7 g/dL (6.3-8.2) 07/10/16 06:43 Albumin 3.5 g/dL (3.9-5) L 07/10/16 06:43 Albumin/Globulin Ratio 1.1 % 07/10/16 06:43 TSH 8.090 mlU/mL (0.270-4.200) H 07/05/16 05:08 Urine Color Straw (Yellow) 07/06/16 01:18 Urine Turbidity Clear (Clear) 07/06/16 01:18 Urine pH 6.0 (5.0-7.0) 07/06/16 01:18 Ur Specific [place] 1.003 (1.003-1.030) 07/06/16 01:18 Urine Protein <15 mg/dl mg/dL (Negative) 07/06/16 01:18 Urine Glucose (UA) Neg mg/dL (Negative) 07/06/16 01:18 Urine Ketones Neg mg/dL (Negative) 07/06/16 01:18 Urine Blood Neg (Negative) 07/06/16 01:18 Urine Nitrite Neg (Negative) 07/06/16 01:18 Urine Bilirubin Neg (Negative) 07/06/16 01:18 Urine Urobilinogen < 2.0 mg/dL (<2.0) 07/06/16 01:18 Ur Leukocyte Esterase Mod (Negative) 07/06/16 01:18 Urine WBC (Auto) 7.0 /HPF (0.0-6.0) H 07/06/16 01:18 Urine RBC (Auto) 3.0 /HPF (0.0-6.0) 07/06/16 01:18 U Epithel Cells (Auto) 1.0 /HPF (0-13.0) 06/30/16 11:34 Urine Bacteria (Auto) 1+ /HPF (Negative) 06/30/16 11:34 Urine Eosinophils None seen (None Seen) 07/06/16 01:18 Urine Creatinine 36.6 mg/dL (0.1-20.0) H 07/06/16 01:18 Urine Microalbumin 6.5 mg/dL (0.1-34.0) 07/06/16 01:18 Microalb/Creat Ratio 177.5 ug/mg 07/06/16 01:18 Urine Sodium 28 mEq/L 07/06/16 01:18 Urine Opiates Screen Presumptive negative 06/30/16 11:34 Urine Methadone Screen Presumptive negative 06/30/16 11:34 Acetaminophen < 15.0 ug/mL (10.0-30.0) 06/30/16 12:01 Ur Barbiturates Screen Presumptive negative 06/30/16 11:34 Ur Phencyclidine Scrn Presumptive negative 06/30/16 11:34 Ur Amphetamines Screen Presumptive negative 06/30/16 11:34 U Benzodiazepines Scrn Presumptive negative 06/30/16 11:34 Urine Cocaine Screen Presumptive negative 06/30/16 11:34 U Marijuana (THC) Screen Presumptive negative 06/30/16 11:34 Drugs of Abuse Note Disclamer 06/30/16 11:34 Plasma/Serum Alcohol < 0.01 gm% (0-0.07) 06/30/16 12:01 Hepatitis A IgM Ab -1 (NonReactive) 07/16/16 19:08 Hep Bs Antigen Non-reactive (Negative) 07/16/16 19:08 Hep B Core IgM Ab Non-reactive (NonReactive) 07/16/16 19:08 Hepatitis C Antibody Non-reactive (NonReactive) 07/16/16 19:08 Blood Type O POSITIVE 07/26/16 15:10 Antibody Screen Negative 07/26/16 15:10 Crossmatch See Detail 07/26/16 15:10
[2016-07-26] MEDS: HEPARIN IV PRN (21:15)
[2016-07-26] MEDS: TYLENOL FEEDTUBE PRN (22:53)
[2016-07-27] MEDS: HEPARIN SUB-Q SCH ×3 (05:47→22:22)
[2016-07-27] MEDS: SYNTHROID PO SCH (05:51)
[2016-07-27] MEDS: APRESOLINE FEEDTUBE SCH ×3 (07:00→22:20)
[2016-07-27] MEDS: NORMODYNE PO SCH ×3 (07:42→20:29)
--- NOTE | 2016-07-27 08:30 | Progress Note ---
Assessment and Plan - Patient Problems (1) GABRIELA (acute kidney injury) Current Visit: Yes Status: Acute Plan to address problem: GABRIELA/CKD 3, remains oliguric and dialysis dependent, patient will need placement in out patient dialysis clinic, social service to arrange . Continue supportive [facility] MWF (2) Chronic renal insufficiency Current Visit: Yes Status: Acute Subjective Date of service: 07/27/16 Principal diagnosis: Acute Respiratory Failure; Angioedema Interval history: No acute events overnite reported underwent placement of rt IJ permacath Dialyzed yesterday Objective - Exam Narrative Exam: Middle-aged female in NAD HEENT normocephalic/atraumatic pink conjunctiva anicteric sclera, Neck is supple no JVD trachea central, Chest is bilateral coarse breath sound equal chest expansion, Heart S1-S2 regular rate and rhythm, Abdomen is soft nontender no organomegaly, Extremities no edema cyanosis or clubbing, Neuro Alert, awake and follows commands - Vital Signs Vital signs: Vital Signs - 12hr 07/26/16 07/26/16 07/26/16 20:30 20:40 22:05 Temperature 97.9 F 100.1 F H Pulse Rate 72 70 Pulse Rate [ Apical] Pulse Rate [ 75 Left Radial] Respiratory 22 20 Rate Blood Pressure 133/61 152/65 Blood Pressure 140/64 [Left Arm] Blood Pressure [Right Arm] O2 Sat by Pulse 100 Oximetry 07/27/16 07/27/16 07/27/16 00:00 01:00 07:02 Temperature 98.8 F 98.4 F Pulse Rate Pulse Rate [ 72 82 Apical] Pulse Rate [ Left Radial] Respiratory 26 H 18 Rate Blood Pressure Blood Pressure [Left Arm] Blood Pressure 125/58 [Right Arm] O2 Sat by Pulse 98 96 Oximetry 07/27/16 07:42 Temperature Pulse Rate Pulse Rate [ Apical] Pulse Rate [ Left Radial] Respiratory Rate Blood Pressure 125/58 Blood Pressure [Left Arm] Blood Pressure [Right Arm] O2 Sat by Pulse Oximetry - Lab 07/26/16 12:50 07/26/16 12:50 Most recent lab results Calcium 6.1 mg/dL (8.4-10.2) L 07/26/16 12:50 Phosphorus 5.2 mg/dL (2.5-4.5) H 07/17/16 06:52 Magnesium 1.9 mg/dL (1.7-2.3) 07/17/16 06:52 Urine Creatinine 36.6 mg/dL (0.1-20.0) H 07/06/16 01:18 Urine Sodium 28 mEq/L 07/06/16 01:18
[2016-07-27] MEDS: NOVOLOG SUB-Q SCH ×4 (08:38→22:21)
--- NOTE | 2016-07-27 10:09 | Progress Note ---
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 hydralazine, labetolol with prn IV meds (4) Acute respiratory failure Current Visit: Yes Status: Resolved Plan to address problem: - resolved mostly - tapered off scheduled benadryl - tapered to pepcid daily - tapered of systemic steroids - prn BIPAP - continue bronchodilators and pulmonary toilet (5) Angioedema Current Visit: Yes Status: Acute Plan to address problem: - no obvious external edema - taper off anti-histamine therapy and steroids Subjective Date of service: 07/27/16 Principal diagnosis: Acute Respiratory Failure; Angioedema Interval history: Seen and examined at bedside; 24 hour events reviewed; nursing and respiratory care staff consulted; no adverse overnight events reported to me; doing better post resp failure but still at risk for aspiration. Objective Vital Signs - 12hr 07/27/16 07/27/16 07/27/16 00:00 01:00 07:02 Temperature 98.8 F 98.4 F Pulse Rate [ 72 82 Apical] Respiratory 26 H 18 Rate Blood Pressure Blood Pressure 125/58 [Right Arm] O2 Sat by Pulse 98 96 Oximetry 07/27/16 07:42 Temperature Pulse Rate [ Apical] Respiratory Rate Blood Pressure 125/58 Blood Pressure [Right Arm] O2 Sat by Pulse Oximetry Constitutional: no acute distress, other (somnolent) Eyes: non-icteric ENT: oropharynx moist Neck: supple, no lymphadenopathy Effort: normal Ascultation: Bilateral: clear, diminished breath sounds (bases) Cardiovascular: regular rate and rhythm Gastrointestinal: normoactive bowel sounds, soft, non-tender, non-distended Integumentary: normal Extremities: no cyanosis, no edema, pulses normal, no ischemia or petechiae Neurologic: non-focal exam (grossly), pupils equal and round, CN II-XII normal Psychiatric: other (somnolent) CBC and BMP: 07/30/16 05:38 07/30/16 05:38 ABG, PT/INR, D-dimer: ABG POC ABG pH 7.523 (7.35-7.45) H 07/26/16 13:02 POC ABG pCO2 31.3 (35-45) L 07/26/16 13:02 POC ABG pO2 96 (80-105) 07/26/16 13:02 POC ABG HCO3 25.7 07/26/16 13:02 POC ABG Total CO2 27 07/26/16 13:02 POC ABG O2 Sat 98 07/26/16 13:02 PT/INR, D-dimer PT 14.1 Sec. (12.2-14.9) 07/18/16 05:06 INR 1.10 (0.87-1.13) 07/18/16 05:06 D-Dimer 751.80 ng/mlDDU (0-234) H 07/11/16 12:22 Abnormal lab findings: Abnormal Labs 07/03/16 07/03/16 07/04/16 14:34 14:34 06:21 WBC 3.9 L RBC 3.16 L 3.04 L Hgb 8.5 L 8.0 L Hct 26.8 L 25.6 L MCH 27 L 26 L RDW 16.5 H 16.2 H Plt Count Lymph % (Auto) [place] % (Auto) 10.7 H 10.7 H Lymph # 1.0 L [place] # Seg Neutrophils % Seg Neuts % (Manual) Lymphocytes % (Manual) Seg Neutrophils # Seg Neutrophils # Man Lymphocytes # (Manual) D-Dimer POC ABG pH POC ABG pCO2 POC ABG pO2 Sodium Potassium Chloride 107.6 H Carbon Dioxide BUN 27 H Creatinine 2.6 H Glucose POC Glucose Calcium 8.0 L Phosphorus Albumin TSH Urine WBC (Auto) Urine Creatinine Crossmatch 07/04/16 07/04/16 07/04/16 06:21 11:30 16:33 WBC RBC Hgb Hct MCH RDW Plt Count Lymph % (Auto) [place] % (Auto) Lymph # [place] # Seg Neutrophils % Seg Neuts % (Manual) Lymphocytes % (Manual) Seg Neutrophils # Seg Neutrophils # Man Lymphocytes # (Manual) D-Dimer POC ABG pH POC ABG pCO2 POC ABG pO2 Sodium Potassium Chloride 107.4 H Carbon Dioxide 21 L BUN 27 H Creatinine 2.7 H Glucose POC Glucose 110 H 106 H Calcium 7.8 L Phosphorus Albumin TSH Urine WBC (Auto) Urine Creatinine Crossmatch 07/05/16 07/05/16 07/05/16 05:08 05:08 05:08 WBC 4.0 L RBC 2.87 L Hgb 7.7 L Hct 24.2 L MCH 27 L RDW 16.0 H Plt Count Lymph % (Auto) [place] % (Auto) Lymph # [place] # Seg Neutrophils % Seg Neuts % (Manual) Lymphocytes % (Manual) Seg Neutrophils # Seg Neutrophils # Man Lymphocytes # (Manual) D-Dimer POC ABG pH POC ABG pCO2 POC ABG pO2 Sodium Potassium Chloride Carbon Dioxide 21 L BUN 32 H Creatinine 3.7 H Glucose POC Glucose Calcium 7.8 L Phosphorus Albumin TSH 8.090 H Urine WBC (Auto) Urine Creatinine Crossmatch 07/05/16 07/06/16 07/06/16 11:45 01:18 01:18 WBC RBC Hgb 8.3 L Hct 25.9 L MCH RDW Plt Count Lymph % (Auto) [place] % (Auto) Lymph # [place] # Seg Neutrophils % Seg Neuts % (Manual) Lymphocytes % (Manual) Seg Neutrophils # Seg Neutrophils # Man Lymphocytes # (Manual) D-Dimer POC ABG pH POC ABG pCO2 POC ABG pO2 Sodium Potassium Chloride Carbon Dioxide BUN Creatinine Glucose POC Glucose Calcium Phosphorus Albumin TSH Urine WBC (Auto) 7.0 H Urine Creatinine 36.6 H Crossmatch 07/06/16 07/06/16 07/06/16 05:55 05:55 16:07 WBC 3.0 L RBC 2.79 L Hgb 7.5 L Hct 23.5 L MCH 27 L RDW 16.5 H Plt Count Lymph % (Auto) [place] % (Auto) Lymph # [place] # Seg Neutrophils % Seg Neuts % (Manual) Lymphocytes % (Manual) Seg Neutrophils # Seg Neutrophils # Man Lymphocytes # (Manual) D-Dimer POC ABG pH POC ABG pCO2 POC ABG pO2 Sodium Potassium Chloride 109.3 H Carbon Dioxide 20 L BUN 32 H Creatinine 3.4 H Glucose POC Glucose 117 H Calcium 7.5 L Phosphorus Albumin TSH Urine WBC (Auto) Urine Creatinine Crossmatch 07/07/16 07/07/16 07/08/16 06:19 16:13 00:09 WBC RBC Hgb Hct MCH RDW Plt Count Lymph % (Auto) [place] % (Auto) Lymph # [place] # Seg Neutrophils % Seg Neuts % (Manual) Lymphocytes % (Manual) Seg Neutrophils # Seg Neutrophils # Man Lymphocytes # (Manual) D-Dimer POC ABG pH POC ABG pCO2 POC ABG pO2 Sodium Potassium Chloride 111.1 H Carbon Dioxide 20 L BUN 31 H Creatinine 3.1 H Glucose POC Glucose 108 H 134 H Calcium 8.0 L Phosphorus Albumin TSH Urine WBC (Auto) Urine Creatinine Crossmatch 07/08/16 07/08/16 07/08/16 11:39 16:31 21:22 WBC RBC Hgb Hct MCH RDW Plt Count Lymph % (Auto) [place] % (Auto) Lymph # [place] # Seg Neutrophils % Seg Neuts % (Manual) Lymphocytes % (Manual) Seg Neutrophils # Seg Neutrophils # Man Lymphocytes # (Manual) D-Dimer POC ABG pH POC ABG pCO2 POC ABG pO2 Sodium Potassium Chloride Carbon Dioxide BUN Creatinine Glucose POC Glucose 119 H 130 H 152 H Calcium Phosphorus Albumin TSH Urine WBC (Auto) Urine Creatinine Crossmatch 07/09/16 07/09/16 07/09/16 05:52 05:52 06:02 WBC RBC 3.55 L Hgb 9.4 L Hct MCH 27 L RDW 17.1 H Plt Count Lymph % (Auto) [place] % (Auto) Lymph # [place] # Seg Neutrophils % Seg Neuts % (Manual) Lymphocytes % (Manual) Seg Neutrophils # Seg Neutrophils # Man Lymphocytes # (Manual) D-Dimer POC ABG pH POC ABG pCO2 POC ABG pO2 Sodium 147 H Potassium 5.4 H Chloride 112.8 H Carbon Dioxide 21 L BUN 30 H Creatinine 2.5 H Glucose 21 L* POC Glucose < 40 L Calcium Phosphorus Albumin TSH Urine WBC (Auto) Urine Creatinine Crossmatch 07/09/16 07/09/16 07/10/16 11:31 16:50 05:23 WBC RBC Hgb Hct MCH RDW Plt Count Lymph % (Auto) [place] % (Auto) Lymph # [place] # Seg Neutrophils % Seg Neuts % (Manual) Lymphocytes % (Manual) Seg Neutrophils # Seg Neutrophils # Man Lymphocytes # (Manual) D-Dimer POC ABG pH POC ABG pCO2 POC ABG pO2 Sodium Potassium Chloride Carbon Dioxide BUN Creatinine Glucose POC Glucose 114 H 149 H < 40 L Calcium Phosphorus Albumin TSH Urine WBC (Auto) Urine Creatinine Crossmatch 07/10/16 07/10/16 07/10/16 06:03 06:43 06:43 WBC RBC 2.90 L Hgb 7.7 L Hct 25.0 L MCH 27 L RDW 17.0 H Plt Count Lymph % (Auto) [place] % (Auto) 10.4 H Lymph # 1.1 L [place] # Seg Neutrophils % Seg Neuts % (Manual) Lymphocytes % (Manual) Seg Neutrophils # Seg Neutrophils # Man Lymphocytes # (Manual) D-Dimer POC ABG pH POC ABG pCO2 POC ABG pO2 Sodium 148 H Potassium 5.1 H Chloride 111.7 H Carbon Dioxide 20 L BUN 31 H Creatinine 2.4 H Glucose POC Glucose 211 H Calcium 8.0 L Phosphorus Albumin 3.5 L TSH Urine WBC (Auto) Urine Creatinine Crossmatch 07/10/16 07/11/16 07/11/16 14:55 05:37 05:47 WBC RBC Hgb 7.9 L Hct 25.5 L MCH RDW Plt Count Lymph % (Auto) [place] % (Auto) Lymph # [place] # Seg Neutrophils % Seg Neuts % (Manual) Lymphocytes % (Manual) Seg Neutrophils # Seg Neutrophils # Man Lymphocytes # (Manual) D-Dimer POC ABG pH POC ABG pCO2 POC ABG pO2 Sodium Potassium Chloride Carbon Dioxide BUN Creatinine Glucose POC Glucose < 40 L > 500 H Calcium Phosphorus Albumin TSH Urine WBC (Auto) Urine Creatinine Crossmatch 07/11/16 07/11/16 07/11/16 05:56 07:42 07:48 WBC RBC Hgb Hct MCH RDW Plt Count Lymph % (Auto) [place] % (Auto) Lymph # [place] # Seg Neutrophils % Seg Neuts % (Manual) Lymphocytes % (Manual) Seg Neutrophils # Seg Neutrophils # Man Lymphocytes # (Manual) D-Dimer POC ABG pH POC ABG pCO2 POC ABG pO2 Sodium Potassium Chloride Carbon Dioxide BUN Creatinine Glucose POC Glucose 262 H 56 L 54 L Calcium Phosphorus Albumin TSH Urine WBC (Auto) Urine Creatinine Crossmatch 07/11/16 07/11/16 07/11/16 08:34 08:50 09:53 WBC RBC Hgb Hct MCH RDW Plt Count Lymph % (Auto) [place] % (Auto) Lymph # [place] # Seg Neutrophils % Seg Neuts % (Manual) Lymphocytes % (Manual) Seg Neutrophils # Seg Neutrophils # Man Lymphocytes # (Manual) D-Dimer POC ABG pH POC ABG pCO2 31.1 L POC ABG pO2 108 H Sodium Potassium Chloride Carbon Dioxide BUN Creatinine Glucose POC Glucose 110 H 68 L Calcium Phosphorus Albumin TSH Urine WBC (Auto) Urine Creatinine Crossmatch 07/11/16 07/11/16 07/11/16 11:48 12:22 12:22 WBC 11.6 H RBC Hgb Hct MCH 27 L RDW 17.2 H Plt Count Lymph % (Auto) [place] % (Auto) Lymph # [place] # Seg Neutrophils % Seg Neuts % (Manual) 91.0 H Lymphocytes % (Manual) 5.0 L Seg Neutrophils # 10.8 H Seg Neutrophils # Man 10.6 H Lymphocytes # (Manual) 0.6 L D-Dimer 751.80 H POC ABG pH POC ABG pCO2 POC ABG pO2 Sodium Potassium Chloride Carbon Dioxide BUN Creatinine Glucose POC Glucose 118 H Calcium Phosphorus Albumin TSH Urine WBC (Auto) Urine Creatinine Crossmatch 07/11/16 07/11/16 07/11/16 12:22 12:29 15:23 WBC RBC Hgb Hct MCH RDW Plt Count Lymph % (Auto) [place] % (Auto) Lymph # [place] # Seg Neutrophils % Seg Neuts % (Manual) Lymphocytes % (Manual) Seg Neutrophils # Seg Neutrophils # Man Lymphocytes # (Manual) D-Dimer POC ABG pH POC ABG pCO2 28.4 L POC ABG pO2 Sodium Potassium 6.1 H* Chloride 109.4 H Carbon Dioxide 18 L BUN 30 H Creatinine 2.1 H Glucose 126 H POC Glucose 204 H Calcium Phosphorus Albumin TSH Urine WBC (Auto) Urine Creatinine Crossmatch 07/11/16 07/11/16 07/11/16 17:27 17:55 21:42 WBC RBC Hgb Hct MCH RDW Plt Count Lymph % (Auto) [place] % (Auto) Lymph # [place] # Seg Neutrophils % Seg Neuts % (Manual) Lymphocytes % (Manual) Seg Neutrophils # Seg Neutrophils # Man Lymphocytes # (Manual) D-Dimer POC ABG pH POC ABG pCO2 POC ABG pO2 Sodium 146 H Potassium 6.5 H* Chloride 109.7 H Carbon Dioxide 20 L BUN 32 H Creatinine 2.4 H Glucose 167 H POC Glucose 433 H 142 H Calcium Phosphorus Albumin TSH Urine WBC (Auto) Urine Creatinine Crossmatch 07/12/16 07/12/16 07/12/16 04:34 04:34 05:22 WBC 14.0 H RBC Hgb Hct MCH 27 L RDW 17.6 H Plt Count 113 L Lymph % (Auto) [place] % (Auto) Lymph # [place] # Seg Neutrophils % Seg Neuts % (Manual) 87.0 H Lymphocytes % (Manual) 11.0 L Seg Neutrophils # Seg Neutrophils # Man 12.2 H Lymphocytes # (Manual) D-Dimer POC ABG pH 7.452 H POC ABG pCO2 29.6 L POC ABG pO2 Sodium Potassium 6.8 H* Chloride 110.2 H Carbon Dioxide 16 L BUN 43 H Creatinine 2.9 H Glucose 113 H POC Glucose Calcium Phosphorus Albumin TSH Urine WBC (Auto) Urine Creatinine Crossmatch 07/12/16 07/12/16 07/12/16 13:24 17:28 21:11 WBC RBC Hgb Hct MCH RDW Plt Count Lymph % (Auto) [place] % (Auto) Lymph # [place] # Seg Neutrophils % Seg Neuts % (Manual) Lymphocytes % (Manual) Seg Neutrophils # Seg Neutrophils # Man Lymphocytes # (Manual) D-Dimer POC ABG pH POC ABG pCO2 POC ABG pO2 Sodium 150 H Potassium Chloride 108.9 H Carbon Dioxide 21 L BUN 52 H Creatinine 3.7 H Glucose 143 H POC Glucose 148 H 134 H Calcium 8.0 L Phosphorus Albumin TSH Urine WBC (Auto) Urine Creatinine Crossmatch 07/12/16 07/13/16 07/13/16 21:50 04:40 04:40 WBC 14.0 H RBC 3.50 L Hgb 9.3 L Hct 29.3 L MCH 27 L RDW 17.3 H Plt Count Lymph % (Auto) 4.9 L [place] % (Auto) Lymph # 0.7 L [place] # Seg Neutrophils % 90.0 H Seg Neuts % (Manual) 93.0 H Lymphocytes % (Manual) 5.0 L Seg Neutrophils # 12.6 H Seg Neutrophils # Man 13.0 H Lymphocytes # (Manual) 0.7 L D-Dimer POC ABG pH POC ABG pCO2 POC ABG pO2 Sodium 151 H Potassium Chloride 109.3 H Carbon Dioxide BUN 59 H Creatinine 4.0 H Glucose 63 L POC Glucose 156 H Calcium 7.7 L Phosphorus Albumin TSH Urine WBC (Auto) Urine Creatinine Crossmatch 07/13/16 07/13/16 07/13/16 06:10 06:40 08:03 WBC RBC Hgb Hct MCH RDW Plt Count Lymph % (Auto) [place] % (Auto) Lymph # [place] # Seg Neutrophils % Seg Neuts % (Manual) Lymphocytes % (Manual) Seg Neutrophils # Seg Neutrophils # Man Lymphocytes # (Manual) D-Dimer POC ABG pH POC ABG pCO2 POC ABG pO2 Sodium Potassium Chloride Carbon Dioxide BUN Creatinine Glucose POC Glucose 68 L 176 H 141 H Calcium Phosphorus Albumin TSH Urine WBC (Auto) Urine Creatinine Crossmatch 07/13/16 07/13/16 07/13/16 09:17 12:30 14:15 WBC RBC Hgb Hct MCH RDW Plt Count Lymph % (Auto) [place] % (Auto) Lymph # [place] # Seg Neutrophils % Seg Neuts % (Manual) Lymphocytes % (Manual) Seg Neutrophils # Seg Neutrophils # Man Lymphocytes # (Manual) D-Dimer POC ABG pH 7.475 H 7.529 H POC ABG pCO2 33.4 L 26.8 L POC ABG pO2 110 H 70 L Sodium Potassium Chloride Carbon Dioxide BUN Creatinine Glucose POC Glucose 177 H Calcium Phosphorus Albumin TSH Urine WBC (Auto) Urine Creatinine Crossmatch 07/13/16 07/13/16 07/13/16 15:28 17:57 22:10 WBC RBC Hgb Hct MCH RDW Plt Count Lymph % (Auto) [place] % (Auto) Lymph # [place] # Seg Neutrophils % Seg Neuts % (Manual) Lymphocytes % (Manual) Seg Neutrophils # Seg Neutrophils # Man Lymphocytes # (Manual) D-Dimer POC ABG pH POC ABG pCO2 POC ABG pO2 Sodium Potassium Chloride Carbon Dioxide BUN Creatinine Glucose POC Glucose 122 H 166 H 197 H Calcium Phosphorus Albumin TSH Urine WBC (Auto) Urine Creatinine Crossmatch 07/14/16 07/14/16 07/14/16 02:00 04:21 04:21 WBC RBC 3.01 L Hgb 8.1 L Hct 25.3 L MCH 27 L RDW 17.9 H Plt Count Lymph % (Auto) 6.1 L [place] % (Auto) Lymph # 0.5 L [place] # Seg Neutrophils % 89.9 H Seg Neuts % (Manual) Lymphocytes % (Manual) Seg Neutrophils # Seg Neutrophils # Man Lymphocytes # (Manual) D-Dimer POC ABG pH POC ABG pCO2 POC ABG pO2 Sodium 150 H Potassium Chloride 107.3 H Carbon Dioxide 21 L BUN 82 H Creatinine 4.8 H Glucose 176 H POC Glucose 166 H Calcium 6.8 L Phosphorus Albumin TSH Urine WBC (Auto) Urine Creatinine Crossmatch 07/14/16 07/14/16 07/14/16 05:32 09:42 22:32 WBC RBC Hgb Hct MCH RDW Plt Count Lymph % (Auto) [place] % (Auto) Lymph # [place] # Seg Neutrophils % Seg Neuts % (Manual) Lymphocytes % (Manual) Seg Neutrophils # Seg Neutrophils # Man Lymphocytes # (Manual) D-Dimer POC ABG pH POC ABG pCO2 POC ABG pO2 Sodium Potassium Chloride Carbon Dioxide BUN Creatinine Glucose POC Glucose 202 H 216 H 191 H Calcium Phosphorus Albumin TSH Urine WBC (Auto) Urine Creatinine Crossmatch 07/15/16 07/15/16 07/15/16 04:46 04:56 04:56 WBC RBC 3.04 L Hgb 8.2 L Hct 25.8 L MCH 27 L RDW 17.3 H Plt Count Lymph % (Auto) 4.2 L [place] % (Auto) 11.8 H Lymph # 0.4 L [place] # 1.1 H Seg Neutrophils % 83.9 H Seg Neuts % (Manual) Lymphocytes % (Manual) Seg Neutrophils # Seg Neutrophils # Man Lymphocytes # (Manual) D-Dimer POC ABG pH POC ABG pCO2 POC ABG pO2 Sodium 147 H Potassium 3.4 L Chloride Carbon Dioxide 20 L BUN 109 H Creatinine 5.2 H Glucose 242 H POC Glucose 275 H Calcium 6.3 L Phosphorus Albumin TSH Urine WBC (Auto) Urine Creatinine Crossmatch 07/15/16 07/15/16 07/15/16 11:32 16:52 20:41 WBC RBC Hgb Hct MCH RDW Plt Count Lymph % (Auto) [place] % (Auto) Lymph # [place] # Seg Neutrophils % Seg Neuts % (Manual) Lymphocytes % (Manual) Seg Neutrophils # Seg Neutrophils # Man Lymphocytes # (Manual) D-Dimer POC ABG pH POC ABG pCO2 POC ABG pO2 Sodium Potassium Chloride Carbon Dioxide BUN Creatinine Glucose POC Glucose 250 H 195 H 219 H Calcium Phosphorus Albumin TSH Urine WBC (Auto) Urine Creatinine Crossmatch 07/16/16 07/16/16 07/16/16 00:37 05:47 09:54 WBC RBC 3.20 L Hgb 8.6 L Hct 27.3 L MCH 27 L RDW 17.1 H Plt Count Lymph % (Auto) 4.2 L [place] % (Auto) Lymph # 0.3 L [place] # Seg Neutrophils % 89.6 H Seg Neuts % (Manual) Lymphocytes % (Manual) Seg Neutrophils # Seg Neutrophils # Man Lymphocytes # (Manual) D-Dimer POC ABG pH POC ABG pCO2 POC ABG pO2 Sodium Potassium Chloride Carbon Dioxide BUN Creatinine Glucose POC Glucose 257 H 223 H Calcium Phosphorus Albumin TSH Urine WBC (Auto) Urine Creatinine Crossmatch 07/16/16 07/16/16 07/16/16 09:54 11:54 17:48 WBC RBC Hgb Hct MCH RDW Plt Count Lymph % (Auto) [place] % (Auto) Lymph # [place] # Seg Neutrophils % Seg Neuts % (Manual) Lymphocytes % (Manual) Seg Neutrophils # Seg Neutrophils # Man Lymphocytes # (Manual) D-Dimer POC ABG pH POC ABG pCO2 POC ABG pO2 Sodium 148 H Potassium Chloride Carbon Dioxide 21 L BUN 146 H Creatinine 6.0 H Glucose 249 H POC Glucose 294 H 195 H Calcium 6.4 L Phosphorus Albumin TSH Urine WBC (Auto) Urine Creatinine Crossmatch 07/16/16 07/16/16 07/17/16 21:54 23:53 05:53 WBC RBC Hgb Hct MCH RDW Plt Count Lymph % (Auto) [place] % (Auto) Lymph # [place] # Seg Neutrophils % Seg Neuts % (Manual) Lymphocytes % (Manual) Seg Neutrophils # Seg Neutrophils # Man Lymphocytes # (Manual) D-Dimer POC ABG pH POC ABG pCO2 POC ABG pO2 Sodium Potassium Chloride Carbon Dioxide BUN Creatinine Glucose POC Glucose 161 H 171 H 208 H Calcium Phosphorus Albumin TSH Urine WBC (Auto) Urine Creatinine Crossmatch 07/17/16 07/17/16 07/17/16 06:52 06:52 11:28 WBC RBC 3.17 L Hgb 8.6 L Hct 26.4 L MCH 27 L RDW 17.2 H Plt Count Lymph % (Auto) [place] % (Auto) Lymph # [place] # Seg Neutrophils % Seg Neuts % (Manual) 90.0 H Lymphocytes % (Manual) 8.0 L Seg Neutrophils # Seg Neutrophils # Man Lymphocytes # (Manual) 0.6 L D-Dimer POC ABG pH POC ABG pCO2 POC ABG pO2 Sodium Potassium Chloride Carbon Dioxide BUN 87 H Creatinine 4.2 H Glucose 231 H POC Glucose 255 H Calcium 6.2 L Phosphorus 5.2 H Albumin TSH Urine WBC (Auto) Urine Creatinine Crossmatch 07/17/16 07/17/16 07/18/16 16:22 23:41 05:06 WBC RBC 3.25 L Hgb 8.8 L Hct 27.2 L MCH 27 L RDW 17.0 H Plt Count Lymph % (Auto) [place] % (Auto) Lymph # [place] # Seg Neutrophils % Seg Neuts % (Manual) 80.0 H Lymphocytes % (Manual) 10.0 L Seg Neutrophils # Seg Neutrophils # Man Lymphocytes # (Manual) 0.9 L D-Dimer POC ABG pH POC ABG pCO2 POC ABG pO2 Sodium Potassium Chloride Carbon Dioxide BUN Creatinine Glucose POC Glucose 263 H 195 H Calcium Phosphorus Albumin TSH Urine WBC (Auto) Urine Creatinine Crossmatch 07/18/16 07/18/16 07/18/16 05:06 06:52 11:52 WBC RBC Hgb Hct MCH RDW Plt Count Lymph % (Auto) [place] % (Auto) Lymph # [place] # Seg Neutrophils % Seg Neuts % (Manual) Lymphocytes % (Manual) Seg Neutrophils # Seg Neutrophils # Man Lymphocytes # (Manual) D-Dimer POC ABG pH POC ABG pCO2 POC ABG pO2 Sodium Potassium Chloride 97.7 L Carbon Dioxide BUN 51 H Creatinine 2.8 H Glucose 252 H POC Glucose 289 H 242 H Calcium 6.4 L Phosphorus Albumin TSH Urine WBC (Auto) Urine Creatinine Crossmatch 07/18/16 07/18/16 07/19/16 16:36 21:34 05:50 WBC RBC Hgb Hct MCH RDW Plt Count Lymph % (Auto) [place] % (Auto) Lymph # [place] # Seg Neutrophils % Seg Neuts % (Manual) Lymphocytes % (Manual) Seg Neutrophils # Seg Neutrophils # Man Lymphocytes # (Manual) D-Dimer POC ABG pH POC ABG pCO2 POC ABG pO2 Sodium Potassium Chloride Carbon Dioxide BUN Creatinine Glucose POC Glucose 221 H 210 H 273 H Calcium Phosphorus Albumin TSH Urine WBC (Auto) Urine Creatinine Crossmatch 07/19/16 07/19/16 07/19/16 07:09 17:06 21:56 WBC RBC Hgb Hct MCH RDW Plt Count Lymph % (Auto) [place] % (Auto) Lymph # [place] # Seg Neutrophils % Seg Neuts % (Manual) Lymphocytes % (Manual) Seg Neutrophils # Seg Neutrophils # Man Lymphocytes # (Manual) D-Dimer POC ABG pH POC ABG pCO2 POC ABG pO2 Sodium Potassium Chloride 96.2 L Carbon Dioxide BUN 81 H Creatinine 4.9 H D Glucose 260 H POC Glucose 143 H 148 H Calcium 6.0 L Phosphorus Albumin TSH Urine WBC (Auto) Urine Creatinine Crossmatch 07/20/16 07/20/16 07/20/16 05:21 06:29 11:01 WBC RBC Hgb Hct MCH RDW Plt Count Lymph % (Auto) [place] % (Auto) Lymph # [place] # Seg Neutrophils % Seg Neuts % (Manual) Lymphocytes % (Manual) Seg Neutrophils # Seg Neutrophils # Man Lymphocytes # (Manual) D-Dimer POC ABG pH POC ABG pCO2 POC ABG pO2 Sodium 136 L Potassium 3.4 L Chloride 94.4 L Carbon Dioxide BUN 43 H Creatinine 3.5 H Glucose 263 H POC Glucose 299 H 281 H Calcium 6.5 L Phosphorus Albumin TSH Urine WBC (Auto) Urine Creatinine Crossmatch 07/20/16 07/20/16 07/21/16 17:07 22:54 06:24 WBC RBC Hgb Hct MCH RDW Plt Count Lymph % (Auto) [place] % (Auto) Lymph # [place] # Seg Neutrophils % Seg Neuts % (Manual) Lymphocytes % (Manual) Seg Neutrophils # Seg Neutrophils # Man Lymphocytes # (Manual) D-Dimer POC ABG pH POC ABG pCO2 POC ABG pO2 Sodium Potassium Chloride Carbon Dioxide BUN Creatinine Glucose POC Glucose 253 H 209 H 346 H Calcium Phosphorus Albumin TSH Urine WBC (Auto) Urine Creatinine Crossmatch 07/21/16 07/21/16 07/21/16 07:25 15:46 21:23 WBC RBC Hgb Hct MCH RDW Plt Count Lymph % (Auto) [place] % (Auto) Lymph # [place] # Seg Neutrophils % Seg Neuts % (Manual) Lymphocytes % (Manual) Seg Neutrophils # Seg Neutrophils # Man Lymphocytes # (Manual) D-Dimer POC ABG pH POC ABG pCO2 POC ABG pO2 Sodium 133 L Potassium Chloride 90.7 L Carbon Dioxide BUN 71 H Creatinine 4.8 H Glucose 289 H POC Glucose 112 H 218 H Calcium 6.2 L Phosphorus Albumin TSH Urine WBC (Auto) Urine Creatinine Crossmatch 07/22/16 07/22/16 07/22/16 06:28 11:49 16:37 WBC RBC Hgb Hct MCH RDW Plt Count Lymph % (Auto) [place] % (Auto) Lymph # [place] # Seg Neutrophils % Seg Neuts % (Manual) Lymphocytes % (Manual) Seg Neutrophils # Seg Neutrophils # Man Lymphocytes # (Manual) D-Dimer POC ABG pH POC ABG pCO2 POC ABG pO2 Sodium Potassium Chloride Carbon Dioxide BUN Creatinine Glucose POC Glucose 316 H 211 H 185 H Calcium Phosphorus Albumin TSH Urine WBC (Auto) Urine Creatinine Crossmatch 07/22/16 07/23/16 07/23/16 20:24 05:19 12:10 WBC RBC Hgb Hct MCH RDW Plt Count Lymph % (Auto) [place] % (Auto) Lymph # [place] # Seg Neutrophils % Seg Neuts % (Manual) Lymphocytes % (Manual) Seg Neutrophils # Seg Neutrophils # Man Lymphocytes # (Manual) D-Dimer POC ABG pH POC ABG pCO2 POC ABG pO2 Sodium Potassium Chloride Carbon Dioxide BUN Creatinine Glucose POC Glucose 213 H 319 H 261 H Calcium Phosphorus Albumin TSH Urine WBC (Auto) Urine Creatinine Crossmatch 07/23/16 07/23/16 07/24/16 15:49 20:58 05:29 WBC RBC Hgb Hct MCH RDW Plt Count Lymph % (Auto) [place] % (Auto) Lymph # [place] # Seg Neutrophils % Seg Neuts % (Manual) Lymphocytes % (Manual) Seg Neutrophils # Seg Neutrophils # Man Lymphocytes # (Manual) D-Dimer POC ABG pH POC ABG pCO2 POC ABG pO2 Sodium Potassium Chloride Carbon Dioxide BUN Creatinine Glucose POC Glucose 271 H 191 H 279 H Calcium Phosphorus Albumin TSH Urine WBC (Auto) Urine Creatinine Crossmatch 07/24/16 07/24/16 07/24/16 05:53 16:20 21:31 WBC RBC Hgb Hct MCH RDW Plt Count Lymph % (Auto) [place] % (Auto) Lymph # [place] # Seg Neutrophils % Seg Neuts % (Manual) Lymphocytes % (Manual) Seg Neutrophils # Seg Neutrophils # Man Lymphocytes # (Manual) D-Dimer POC ABG pH POC ABG pCO2 POC ABG pO2 Sodium Potassium Chloride Carbon Dioxide BUN 89 H Creatinine 5.3 H Glucose 273 H POC Glucose 161 H 136 H Calcium 6.2 L Phosphorus Albumin TSH Urine WBC (Auto) Urine Creatinine Crossmatch 07/25/16 07/25/16 07/25/16 06:25 11:56 16:10 WBC RBC Hgb Hct MCH RDW Plt Count Lymph % (Auto) [place] % (Auto) Lymph # [place] # Seg Neutrophils % Seg Neuts % (Manual) Lymphocytes % (Manual) Seg Neutrophils # Seg Neutrophils # Man Lymphocytes # (Manual) D-Dimer POC ABG pH POC ABG pCO2 POC ABG pO2 Sodium Potassium Chloride Carbon Dioxide BUN Creatinine Glucose POC Glucose 311 H 164 H 249 H Calcium Phosphorus Albumin TSH Urine WBC (Auto) Urine Creatinine Crossmatch 07/25/16 07/26/16 07/26/16 21:13 06:19 11:31 WBC RBC Hgb Hct MCH RDW Plt Count Lymph % (Auto) [place] % (Auto) Lymph # [place] # Seg Neutrophils % Seg Neuts % (Manual) Lymphocytes % (Manual) Seg Neutrophils # Seg Neutrophils # Man Lymphocytes # (Manual) D-Dimer POC ABG pH POC ABG pCO2 POC ABG pO2 Sodium Potassium Chloride Carbon Dioxide BUN Creatinine Glucose POC Glucose 194 H 280 H 191 H Calcium Phosphorus Albumin TSH Urine WBC (Auto) Urine Creatinine Crossmatch 07/26/16 07/26/16 07/26/16 12:50 12:50 13:02 WBC RBC 2.35 L Hgb 6.5 L Hct 20.0 L MCH RDW 18.4 H Plt Count 135 L Lymph % (Auto) 7.7 L [place] % (Auto) Lymph # 0.6 L [place] # Seg Neutrophils % 86.8 H Seg Neuts % (Manual) Lymphocytes % (Manual) Seg Neutrophils # Seg Neutrophils # Man Lymphocytes # (Manual) D-Dimer POC ABG pH 7.523 H POC ABG pCO2 31.3 L POC ABG pO2 Sodium Potassium Chloride Carbon Dioxide BUN 67 H Creatinine 4.9 H Glucose 139 H POC Glucose Calcium 6.1 L Phosphorus Albumin TSH Urine WBC (Auto) Urine Creatinine Crossmatch 07/26/16 07/26/16 07/26/16 15:10 16:11 23:25 WBC RBC Hgb Hct MCH RDW Plt Count Lymph % (Auto) [place] % (Auto) Lymph # [place] # Seg Neutrophils % Seg Neuts % (Manual) Lymphocytes % (Manual) Seg Neutrophils # Seg Neutrophils # Man Lymphocytes # (Manual) D-Dimer POC ABG pH POC ABG pCO2 POC ABG pO2 Sodium Potassium Chloride Carbon Dioxide BUN Creatinine Glucose POC Glucose 204 H 115 H Calcium Phosphorus Albumin TSH Urine WBC (Auto) Urine Creatinine Crossmatch See Detail 07/27/16 06:39 WBC RBC Hgb Hct MCH RDW Plt Count Lymph % (Auto) [place] % (Auto) Lymph # [place] # Seg Neutrophils % Seg Neuts % (Manual) Lymphocytes % (Manual) Seg Neutrophils # Seg Neutrophils # Man Lymphocytes # (Manual) D-Dimer POC ABG pH POC ABG pCO2 POC ABG pO2 Sodium Potassium Chloride Carbon Dioxide BUN Creatinine Glucose POC Glucose 194 H Calcium Phosphorus Albumin TSH Urine WBC (Auto) Urine Creatinine Crossmatch
[2016-07-27 10:24] LABS: Basophils % (Auto) 0.3 % (0.0-1.8); Eosinophils % (Auto) 1.1 % (0.0-4.3); Hematocrit 28.5 % (30.3-42.9); Hemoglobin 9.4 gm/dl (10.1-14.3); Mean Corpuscular HGB Conc 33 % (30-34); Mean Corpuscular Hemoglobin 29 pg (28-32); Mean Corpuscular Volume 86 fl (79-97); Platelet Count 115 K/mm3 (140-440); Red Cell Distribution Width 16.5 % (13.2-15.2); White Blood Count 10.5 K/mm3 (4.5-11.0)
[2016-07-27 10:40] LABS: BUN/Creatinine Ratio 12.41; Calcium 6.8 mg/dL (8.4-10.2); Chloride 97.7 mmol/L (98-107)
[2016-07-27 10:43] LABS: Potassium 2.6 mmol/L (3.6-5.0)
[2016-07-27] MEDS ORDERED: K-DUR PO ONE (10:52)
[2016-07-27] MEDS: NEURONTIN PO SCH ×2 (13:07→22:20)
[2016-07-27] MEDS: PEPCID PO SCH (13:09)
[2016-07-27] MEDS: KCL 10MEQ/100ML 100 ML IV SCH ×3 (13:33→19:19)
--- NOTE | 2016-07-27 13:50 | Progress Note ---
Assessment and Plan Assessment and plan: Severe hypokalemia * replace and monitor Severe microcytic anemia * s/p 2 units of PRBC * stool for occult blood positive, GI consulted * could be due to CKD Acute hypoxic respiratory failure * Resolved, s/p extubation, Off BiPAP * On oxygen support Angioedema * Patient is now extubated and doing well. * Repeat swallow study was unsuccessfull * GI following for PEG placement Urinary tract infection * Urine culture positive for Klebsiella * Treated with Rocephin, Acute renal failurevon CKD stage IV. * Etiology likely secondary to vasomotor nephropathy versus interstitial nephritis from initial treatment with Bactrim for UTI. * Patient is on hemodialysis, will need out pt HD set up Hyperkalemia. * improved after dialysis DM2 * Monitor blood glucose closely, SSI Toxic metabolic encephalopathy. * Continue to treat underlying causes. * Continue supportive care Hypothyroidism. * Continue Synthroid. Hypertension * Continue current antihypertensive and adjust medications as needed * Hydralazine when necessary Left upper extremity swelling. * Ultrasound showed SVT in the cephalic vein * conservative management History Interval history: Pt lying in bed, nonverbal, no reported nursing events. As per family request repeat swallow evaluation was unsuccessful. Pt high risk for aspiration. Pt unable to tolerate swallow evaluation. s/p perm cath placement, will need out patient HD set up. Had family meeting today, daughter agreed for PEG tube placement. Hospitalist Physical - Physical exam Narrative exam: General appearance: Present: no acute distress, obese - EENT Eyes: Present: PERRL - Neck Neck: Present: supple - Respiratory Respiratory: bilateral: diminished - Cardiovascular Rhythm: regular Heart Sounds: Present: S1 & S2 - Extremities Extremity abnormal: edema Peripheral Pulses: within normal limits - Abdominal General gastrointestinal: soft, non-tender, non-distended, no hepatomegaly, no splenomegaly - Integumentary Integumentary: Present: clear, dry, decreased turgor - Psychiatric Psychiatric: no intact judgment & insight, no memory intact - Constitutional Vitals: Temp Pulse Resp BP Pulse Ox 98.4 F 82 18 125/58 96 07/27/16 07:02 07/27/16 07:02 07/27/16 07:02 07/27/16 07:42 07/27/16 07:02 General appearance: Present: no acute distress, obese Results - Labs CBC & Chem 7: 07/27/16 09:28 07/27/16 09:28 Labs: Laboratory Last Values WBC 10.5 K/mm3 (4.5-11.0) 07/27/16 09: RBC 3.30 M/mm3 (3.65-5.03) L 07/27/16 09:28 Hgb 9.4 gm/dl (10.1-14.3) L 07/27/16 09:28 Hct 28.5 % (30.3-42.9) L D 07/27/16 09:28 MCV 86 fl (79-97) 07/27/16 09: MCH 29 pg (28-32) 07/27/16 09: MCHC 33 % (30-34) 07/27/16 09: RDW 16.5 % (13.2-15.2) H 07/27/16 09:28 Plt Count 115 K/mm3 (140-440) L 07/27/16 09:28 Lymph % (Auto) 14.1 % (13.4-35.0) 07/27/16 09:28 [place] % (Auto) 6.5 % (0.0-7.3) 07/27/16 09:28 Eos % (Auto) 1.1 % (0.0-4.3) 07/27/16 09: Baso % (Auto) 0.3 % (0.0-1.8) 07/27/16 09:28 Lymph # 1.5 K/mm3 (1.2-5.4) 07/27/16 09:28 [place] # 0.7 K/mm3 (0.0-0.8) 07/27/16 09:28 Eos # 0.1 K/mm3 (0.0-0.4) 07/27/16 09:28 Baso # 0.0 K/mm3 (0.0-0.1) 07/27/16 09:28 Add Manual Diff Complete 07/18/16 05:06 Total Counted 100 07/18/16 05:06 Seg Neutrophils % 78.0 % (40.0-70.0) H 07/27/16 09:28 Seg Neuts % (Manual) 80.0 % (40.0-70.0) H 07/18/16 05:06 Band Neutrophils % 4.0 % 07/18/16 05:06 Lymphocytes % (Manual) 10.0 % (13.4-35.0) L 07/18/16 05:06 Reactive Lymphs % (Man) 0 % 07/18/16 05:06 Monocytes % (Manual) 6.0 % (0.0-7.3) 07/18/16 05:06 Eosinophils % (Manual) 0 % (0.0-4.3) 07/17/16 06:52 Basophils % (Manual) 0 % (0.0-1.8) 07/17/16 06:52 Metamyelocytes % 0 % 07/18/16 05:06 Myelocytes % 0 % 07/18/16 05:06 Promyelocytes % 0 % 07/18/16 05:06 Blast Cells % 0 % 07/18/16 05:06 Nucleated RBC % Not Reportable 07/18/16 05:06 Seg Neutrophils # 8.2 K/mm3 (1.8-7.7) H 07/27/16 09:28 Seg Neutrophils # Man 6.9 K/mm3 (1.8-7.7) 07/18/16 05:06 Band Neutrophils # 0.3 K/mm3 07/18/16 05:06 Lymphocytes # (Manual) 0.9 K/mm3 (1.2-5.4) L 07/18/16 05:06 Abs React Lymphs (Man) 0.0 K/mm3 07/18/16 05:06 Monocytes # (Manual) 0.5 K/mm3 (0.0-0.8) 07/18/16 05:06 Eosinophils # (Manual) 0.0 K/mm3 (0.0-0.4) 07/18/16 05:06 Basophils # (Manual) 0.0 K/mm3 (0.0-0.1) 07/18/16 05:06 Metamyelocytes # 0.0 K/mm3 07/18/16 05:06 Myelocytes # 0.0 K/mm3 07/18/16 05:06 Promyelocytes # 0.0 K/mm3 07/18/16 05:06 Blast Cells # 0.0 K/mm3 07/18/16 05:06 WBC Morphology Not Reportable 07/18/16 05:06 Hypersegmented Neuts Not Reportable 07/18/16 05:06 Hyposegmented Neuts Not Reportable 07/18/16 05:06 Hypogranular Neuts Not Reportable 07/18/16 05:06 Smudge Cells Not Reportable 07/18/16 05:06 Toxic Granulation Not Reportable 07/18/16 05:06 Toxic Vacuolation Not Reportable 07/18/16 05:06 Dohle Bodies Not Reportable 07/18/16 05:06 Pelger-Huet Anomaly Not Reportable 07/18/16 05:06 Shagufta Rods Not Reportable 07/18/16 05:06 Platelet Estimate Not Reportable 07/18/16 05:06 Clumped Platelets Not Reportable 07/18/16 05:06 Plt Clumps, EDTA Not Reportable 07/18/16 05:06 Large Platelets Not Reportable 07/18/16 05:06 Giant Platelets Not Reportable 07/18/16 05:06 Platelet Satelliting Not Reportable 07/18/16 05:06 Plt Morphology Comment Not Reportable 07/18/16 05:06 RBC Morphology Not Reportable 07/18/16 05:06 Dimorphic RBCs Not Reportable 07/18/16 05:06 Polychromasia Not Reportable 07/18/16 05:06 Hypochromasia Not Reportable 07/18/16 05:06 Poikilocytosis Not Reportable 07/18/16 05:06 Anisocytosis 1+ 07/18/16 05:06 Microcytosis Not Reportable 07/18/16 05:06 Macrocytosis Not Reportable 07/18/16 05:06 Spherocytes Not Reportable 07/18/16 05:06 Pappenheimer Bodies Not Reportable 07/18/16 05:06 Sickle Cells Not Reportable 07/18/16 05:06 Target Cells Not Reportable 07/18/16 05:06 Tear Drop Cells Not Reportable 07/18/16 05:06 Ovalocytes Not Reportable 07/18/16 05:06 Helmet Cells Not Reportable 07/18/16 05:06 Pérez-[place] Bodies Not Reportable 07/18/16 05:06 [place] Rings Not Reportable 07/18/16 05:06 Radha Cells Not Reportable 07/18/16 05:06 Bite Cells Not Reportable 07/18/16 05:06 Crenated Cell Not Reportable 07/18/16 05:06 Elliptocytes Few 07/18/16 05:06 Acanthocytes (Spur) Not Reportable 07/18/16 05:06 Rouleaux Not Reportable 07/18/16 05:06 Hemoglobin C Crystals Not Reportable 07/18/16 05:06 Schistocytes Not Reportable 07/18/16 05:06 Malaria parasites Not Reportable 07/18/16 05:06 Kaushik Bodies Not Reportable 07/18/16 05:06 Hem Pathologist Commnt No 07/18/16 05:06 PT 14.1 Sec. (12.2-14.9) 07/18/16 05:06 INR 1.10 (0.87-1.13) 07/18/16 05:06 APTT 34.8 Sec. (24.2-36.6) 07/18/16 05:06 D-Dimer 751.80 ng/mlDDU (0-234) H 07/11/16 12:22 POC ABG pH 7.523 (7.35-7.45) H 07/26/16 13:02 POC ABG pCO2 31.3 (35-45) L 07/26/16 13:02 POC ABG pO2 96 (80-105) 07/26/16 13:02 POC ABG HCO3 25.7 07/26/16 13:02 POC ABG Total CO2 27 07/26/16 13:02 POC ABG O2 Sat 98 07/26/16 13:02 POC ABG Base Excess 3 07/26/16 13:02 FiO2 21 % 07/26/16 13:02 Sodium 140 mmol/L (137-145) 07/27/16 09:28 Potassium 2.6 mmol/L (3.6-5.0) L* D 07/27/16 09:28 Chloride 97.7 mmol/L (98-107) L 07/27/16 09:28 Carbon Dioxide 26 mmol/L (22-30) 07/27/16 09:28 Anion Gap 19 mmol/L 07/27/16 09:28 BUN 36 mg/dL (7-17) H 07/27/16 09:28 Creatinine 2.9 mg/dL (0.7-1.2) H 07/27/16 09:28 Estimated GFR 19 ml/min 07/27/16 09:28 BUN/Creatinine Ratio 12.41 % 07/27/16 09:28 Glucose 157 mg/dL (65-100) H 07/27/16 09:28 POC Glucose 194 (70-105) H 07/27/16 06:39 Hemoglobin A1c 5.6 % (4-6) 07/15/16 04:56 Lactic Acid 0.8 mmol/L (0.7-2.0) 07/19/16 00:37 Calcium 6.8 mg/dL (8.4-10.2) L 07/27/16 09:28 Phosphorus 5.2 mg/dL (2.5-4.5) H 07/17/16 06:52 Magnesium 1.9 mg/dL (1.7-2.3) 07/17/16 06:52 Total Bilirubin < 0.2 mg/dL (0.1-1.2) 07/10/16 06:43 AST 17 units/L (5-40) 07/10/16 06:43 ALT 9 units/L (7-56) 07/10/16 06:43 Alkaline Phosphatase 62 units/L (35-129) 07/10/16 06:43 Total Creatine Kinase 131 units/L (30-135) 07/11/16 12:22 CK-MB (CK-2) 2.0 ng/mL (0.0-4.0) 07/11/16 12:22 CK-MB (CK-2) Rel Index 1.5 (0-4) 07/11/16 12:22 Troponin T < 0.010 ng/mL (0.00-0.029) 07/11/16 12:22 Total Protein 6.7 g/dL (6.3-8.2) 07/10/16 06:43 Albumin 3.5 g/dL (3.9-5) L 07/10/16 06:43 Albumin/Globulin Ratio 1.1 % 07/10/16 06:43 TSH 8.090 mlU/mL (0.270-4.200) H 07/05/16 05:08 Urine Color Straw (Yellow) 07/06/16 01:18 Urine Turbidity Clear (Clear) 07/06/16 01:18 Urine pH 6.0 (5.0-7.0) 07/06/16 01:18 Ur Specific [place] 1.003 (1.003-1.030) 07/06/16 01:18 Urine Protein <15 mg/dl mg/dL (Negative) 07/06/16 01:18 Urine Glucose (UA) Neg mg/dL (Negative) 07/06/16 01:18 Urine Ketones Neg mg/dL (Negative) 07/06/16 01:18 Urine Blood Neg (Negative) 07/06/16 01:18 Urine Nitrite Neg (Negative) 07/06/16 01:18 Urine Bilirubin Neg (Negative) 07/06/16 01:18 Urine Urobilinogen < 2.0 mg/dL (<2.0) 07/06/16 01:18 Ur Leukocyte Esterase Mod (Negative) 07/06/16 01:18 Urine WBC (Auto) 7.0 /HPF (0.0-6.0) H 07/06/16 01:18 Urine RBC (Auto) 3.0 /HPF (0.0-6.0) 07/06/16 01:18 U Epithel Cells (Auto) 1.0 /HPF (0-13.0) 06/30/16 11:34 Urine Bacteria (Auto) 1+ /HPF (Negative) 06/30/16 11:34 Urine Eosinophils None seen (None Seen) 07/06/16 01:18 Urine Creatinine 36.6 mg/dL (0.1-20.0) H 07/06/16 01:18 Urine Microalbumin 6.5 mg/dL (0.1-34.0) 07/06/16 01:18 Microalb/Creat Ratio 177.5 ug/mg 07/06/16 01:18 Urine Sodium 28 mEq/L 07/06/16 01:18 Urine Opiates Screen Presumptive negative 06/30/16 11:34 Urine Methadone Screen Presumptive negative 06/30/16 11:34 Acetaminophen < 15.0 ug/mL (10.0-30.0) 06/30/16 12:01 Ur Barbiturates Screen Presumptive negative 06/30/16 11:34 Ur Phencyclidine Scrn Presumptive negative 06/30/16 11:34 Ur Amphetamines Screen Presumptive negative 06/30/16 11:34 U Benzodiazepines Scrn Presumptive negative 06/30/16 11:34 Urine Cocaine Screen Presumptive negative 06/30/16 11:34 U Marijuana (THC) Screen Presumptive negative 06/30/16 11:34 Drugs of Abuse Note Disclamer 06/30/16 11:34 Plasma/Serum Alcohol < 0.01 gm% (0-0.07) 06/30/16 12:01 Hepatitis A IgM Ab -1 (NonReactive) 07/16/16 19:08 Hep Bs Antigen Non-reactive (Negative) 07/16/16 19:08 Hep B Core IgM Ab Non-reactive (NonReactive) 07/16/16 19:08 Hepatitis C Antibody Non-reactive (NonReactive) 07/16/16 19:08 Blood Type O POSITIVE 07/26/16 15:10 Antibody Screen Negative 07/26/16 15:10 Crossmatch See Detail 07/26/16 15:10
[2016-07-28] MEDS: APRESOLINE FEEDTUBE SCH ×2 (05:53→15:30)
[2016-07-28] MEDS: HEPARIN SUB-Q SCH ×2 (05:54→15:31)
[2016-07-28] MEDS: SYNTHROID PO SCH (05:54)
[2016-07-28 06:41] LABS: Hemoglobin 9.1 gm/dl (10.1-14.3)
[2016-07-28 06:54] LABS: BUN/Creatinine Ratio 13.14; Calcium 6.8 mg/dL (8.4-10.2); Potassium 3.2 mmol/L (3.6-5.0)
[2016-07-28] MEDS: NACL 0.9% 1000 ML 1,000 ML IV SCH (07:25)
[2016-07-28] MEDS: NOVOLOG SUB-Q SCH ×3 (09:15→19:10)
[2016-07-28] MEDS: NORMODYNE PO SCH ×2 (09:35→15:30)
[2016-07-28] MEDS: PEPCID PO SCH (09:36)
[2016-07-28] MEDS: NEURONTIN PO SCH (09:36)
--- NOTE | 2016-07-28 13:43 | Progress Note ---
Assessment and Plan Assessment and plan: Severe hypokalemia * replaced and improved * cont to monitor Severe microcytic anemia * s/p 2 units of PRBC * stool for occult blood positive, GI consulted * could be due to CKD Acute hypoxic respiratory failure * Resolved, s/p extubation, Off BiPAP * On oxygen support Angioedema with dysphagia * Patient is now extubated and doing well. * Repeat swallow study was unsuccessfull * GI following for PEG placement Urinary tract infection * Urine culture positive for Klebsiella * Treated with Rocephin, Acute renal failurevon CKD stage IV. * Etiology likely secondary to vasomotor nephropathy versus interstitial nephritis from initial treatment with Bactrim for UTI. * Patient is on hemodialysis, will need out pt HD set up Hyperkalemia. * improved after dialysis DM2 * Monitor blood glucose closely, SSI Toxic metabolic encephalopathy. * Continue to treat underlying causes. * Continue supportive care Hypothyroidism. * Continue Synthroid. Hypertension * Continue current antihypertensive and adjust medications as needed * Hydralazine when necessary Left upper extremity swelling. * Ultrasound showed SVT in the cephalic vein * conservative management History Interval history: Pt lying in bed, nonverbal, no reported nursing events. As per family request repeat swallow evaluation was unsuccessful. Pt high risk for aspiration. Pt unable to tolerate swallow evaluation. s/p perm cath placement, will need out patient HD set up. Had family meeting with daughter and agreed for PEG tube placement. GI eval pending for PEG placement, stool is positive for occult blood. Patient denies any chest pain. Hospitalist Physical - Physical exam Narrative exam: General appearance: Present: no acute distress, obese - EENT Eyes: Present: PERRL - Neck Neck: Present: supple - Respiratory Respiratory: bilateral: diminished - Cardiovascular Rhythm: regular Heart Sounds: Present: S1 & S2 - Extremities Extremity abnormal: edema Peripheral Pulses: within normal limits - Abdominal General gastrointestinal: soft, non-tender, non-distended, no hepatomegaly, no splenomegaly - Integumentary Integumentary: Present: clear, dry, decreased turgor - Psychiatric Psychiatric: no intact judgment & insight, no memory intact - Constitutional Vitals: Temp Pulse Resp BP Pulse Ox 99.8 F H 82 18 92/46 99 07/28/16 07:40 07/28/16 07:40 07/28/16 07:40 07/28/16 09:35 07/28/16 00:43 General appearance: Present: no acute distress, obese Results - Labs CBC & Chem 7: 07/28/16 05:56 07/28/16 05:56 Labs: Laboratory Last Values WBC 10.5 K/mm3 (4.5-11.0) 07/27/16 09:28 RBC 3.30 M/mm3 (3.65-5.03) L 07/27/16 09:28 Hgb 9.1 gm/dl (10.1-14.3) L 07/28/16 05:56 Hct 28.0 % (30.3-42.9) L 07/28/16 05:56 MCV 86 fl (79-97) 07/27/16 09:28 MCH 29 pg (28-32) 07/27/16 09:28 MCHC 33 % (30-34) 07/27/16 09:28 RDW 16.5 % (13.2-15.2) H 07/27/16 09:28 Plt Count 115 K/mm3 (140-440) L 07/27/16 09:28 Lymph % (Auto) 14.1 % (13.4-35.0) 07/27/16 09:28 [place] % (Auto) 6.5 % (0.0-7.3) 07/27/16 09:28 Eos % (Auto) 1.1 % (0.0-4.3) 07/27/16 09:28 Baso % (Auto) 0.3 % (0.0-1.8) 07/27/16 09:28 Lymph # 1.5 K/mm3 (1.2-5.4) 07/27/16 09:28 [place] # 0.7 K/mm3 (0.0-0.8) 07/27/16 09:28 Eos # 0.1 K/mm3 (0.0-0.4) 07/27/16 09:28 Baso # 0.0 K/mm3 (0.0-0.1) 07/27/16 09:28 Add Manual Diff Complete 07/18/16 05:06 Total Counted 100 07/18/16 05:06 Seg Neutrophils % 78.0 % (40.0-70.0) H 07/27/16 09:28 Seg Neuts % (Manual) 80.0 % (40.0-70.0) H 07/18/16 05:06 Band Neutrophils % 4.0 % 07/18/16 05:06 Lymphocytes % (Manual) 10.0 % (13.4-35.0) L 07/18/16 05:06 Reactive Lymphs % (Man) 0 % 07/18/16 05:06 Monocytes % (Manual) 6.0 % (0.0-7.3) 07/18/16 05:06 Eosinophils % (Manual) 0 % (0.0-4.3) 07/17/16 06:52 Basophils % (Manual) 0 % (0.0-1.8) 07/17/16 06:52 Metamyelocytes % 0 % 07/18/16 05:06 Myelocytes % 0 % 07/18/16 05:06 Promyelocytes % 0 % 07/18/16 05:06 Blast Cells % 0 % 07/18/16 05:06 Nucleated RBC % Not Reportable 07/18/16 05:06 Seg Neutrophils # 8.2 K/mm3 (1.8-7.7) H 07/27/16 09:28 Seg Neutrophils # Man 6.9 K/mm3 (1.8-7.7) 07/18/16 05:06 Band Neutrophils # 0.3 K/mm3 07/18/16 05:06 Lymphocytes # (Manual) 0.9 K/mm3 (1.2-5.4) L 07/18/16 05:06 Abs React Lymphs (Man) 0.0 K/mm3 07/18/16 05:06 Monocytes # (Manual) 0.5 K/mm3 (0.0-0.8) 07/18/16 05:06 Eosinophils # (Manual) 0.0 K/mm3 (0.0-0.4) 07/18/16 05:06 Basophils # (Manual) 0.0 K/mm3 (0.0-0.1) 07/18/16 05:06 Metamyelocytes # 0.0 K/mm3 07/18/16 05:06 Myelocytes # 0.0 K/mm3 07/18/16 05:06 Promyelocytes # 0.0 K/mm3 07/18/16 05:06 Blast Cells # 0.0 K/mm3 07/18/16 05:06 WBC Morphology Not Reportable 07/18/16 05:06 Hypersegmented Neuts Not Reportable 07/18/16 05:06 Hyposegmented Neuts Not Reportable 07/18/16 05:06 Hypogranular Neuts Not Reportable 07/18/16 05:06 Smudge Cells Not Reportable 07/18/16 05:06 Toxic Granulation Not Reportable 07/18/16 05:06 Toxic Vacuolation Not Reportable 07/18/16 05:06 Dohle Bodies Not Reportable 07/18/16 05:06 Pelger-Huet Anomaly Not Reportable 07/18/16 05:06 Shagufta Rods Not Reportable 07/18/16 05:06 Platelet Estimate Not Reportable 07/18/16 05:06 Clumped Platelets Not Reportable 07/18/16 05:06 Plt Clumps, EDTA Not Reportable 07/18/16 05:06 Large Platelets Not Reportable 07/18/16 05:06 Giant Platelets Not Reportable 07/18/16 05:06 Platelet Satelliting Not Reportable 07/18/16 05:06 Plt Morphology Comment Not Reportable 07/18/16 05:06 RBC Morphology Not Reportable 07/18/16 05:06 Dimorphic RBCs Not Reportable 07/18/16 05:06 Polychromasia Not Reportable 07/18/16 05:06 Hypochromasia Not Reportable 07/18/16 05:06 Poikilocytosis Not Reportable 07/18/16 05:06 Anisocytosis 1+ 07/18/16 05:06 Microcytosis Not Reportable 07/18/16 05:06 Macrocytosis Not Reportable 07/18/16 05:06 Spherocytes Not Reportable 07/18/16 05:06 Pappenheimer Bodies Not Reportable 07/18/16 05:06 Sickle Cells Not Reportable 07/18/16 05:06 Target Cells Not Reportable 07/18/16 05:06 Tear Drop Cells Not Reportable 07/18/16 05:06 Ovalocytes Not Reportable 07/18/16 05:06 Helmet Cells Not Reportable 07/18/16 05:06 Pérez-[place] Bodies Not Reportable 07/18/16 05:06 [place] Rings Not Reportable 07/18/16 05:06 [place] Cells Not Reportable 07/18/16 05:06 Bite Cells Not Reportable 07/18/16 05:06 Crenated Cell Not Reportable 07/18/16 05:06 Elliptocytes Few 07/18/16 05:06 Acanthocytes (Spur) Not Reportable 07/18/16 05:06 Rouleaux Not Reportable 07/18/16 05:06 Hemoglobin C Crystals Not Reportable 07/18/16 05:06 Schistocytes Not Reportable 07/18/16 05:06 Malaria parasites Not Reportable 07/18/16 05:06 Kaushik Bodies Not Reportable 07/18/16 05:06 Hem Pathologist Commnt No 07/18/16 05:06 PT 14.1 Sec. (12.2-14.9) 07/18/16 05:06 INR 1.10 (0.87-1.13) 07/18/16 05:06 APTT 34.8 Sec. (24.2-36.6) 07/18/16 05:06 D-Dimer 751.80 ng/mlDDU (0-234) H 07/11/16 12:22 POC ABG pH 7.523 (7.35-7.45) H 07/26/16 13:02 POC ABG pCO2 31.3 (35-45) L 07/26/16 13:02 POC ABG pO2 96 (80-105) 07/26/16 13:02 POC ABG HCO3 25.7 07/26/16 13:02 POC ABG Total CO2 27 07/26/16 13:02 POC ABG O2 Sat 98 07/26/16 13:02 POC ABG Base Excess 3 07/26/16 13:02 FiO2 21 % 07/26/16 13:02 Sodium 142 mmol/L (137-145) 07/28/16 05:56 Potassium 3.2 mmol/L (3.6-5.0) L D 07/28/16 05:56 Chloride 99.0 mmol/L (98-107) 07/28/16 05:56 Carbon Dioxide 27 mmol/L (22-30) 07/28/16 05:56 Anion Gap 19 mmol/L 07/28/16 05:56 BUN 46 mg/dL (7-17) H 07/28/16 05:56 Creatinine 3.5 mg/dL (0.7-1.2) H 07/28/16 05:56 Estimated GFR 16 ml/min 07/28/16 05:56 BUN/Creatinine Ratio 13.14 % 07/28/16 05:56 Glucose 205 mg/dL (65-100) H 07/28/16 05:56 POC Glucose 125 (70-105) H 07/28/16 11:12 Hemoglobin A1c 5.6 % (4-6) 07/15/16 04:56 Lactic Acid 0.8 mmol/L (0.7-2.0) 07/19/16 00:37 Calcium 6.8 mg/dL (8.4-10.2) L 07/28/16 05:56 Phosphorus 5.2 mg/dL (2.5-4.5) H 07/17/16 06:52 Magnesium 1.9 mg/dL (1.7-2.3) 07/17/16 06:52 Total Bilirubin < 0.2 mg/dL (0.1-1.2) 07/10/16 06:43 AST 17 units/L (5-40) 07/10/16 06:43 ALT 9 units/L (7-56) 07/10/16 06:43 Alkaline Phosphatase 62 units/L (35-129) 07/10/16 06:43 Total Creatine Kinase 131 units/L (30-135) 07/11/16 12:22 CK-MB (CK-2) 2.0 ng/mL (0.0-4.0) 07/11/16 12:22 CK-MB (CK-2) Rel Index 1.5 (0-4) 07/11/16 12:22 Troponin T < 0.010 ng/mL (0.00-0.029) 07/11/16 12:22 Total Protein 6.7 g/dL (6.3-8.2) 07/10/16 06:43 Albumin 3.5 g/dL (3.9-5) L 07/10/16 06:43 Albumin/Globulin Ratio 1.1 % 07/10/16 06:43 TSH 8.090 mlU/mL (0.270-4.200) H 07/05/16 05:08 Urine Color Straw (Yellow) 07/06/16 01:18 Urine Turbidity Clear (Clear) 07/06/16 01:18 Urine pH 6.0 (5.0-7.0) 07/06/16 01:18 Ur Specific [place] 1.003 (1.003-1.030) 07/06/16 01:18 Urine Protein <15 mg/dl mg/dL (Negative) 07/06/16 01:18 Urine Glucose (UA) Neg mg/dL (Negative) 07/06/16 01:18 Urine Ketones Neg mg/dL (Negative) 07/06/16 01:18 Urine Blood Neg (Negative) 07/06/16 01:18 Urine Nitrite Neg (Negative) 07/06/16 01:18 Urine Bilirubin Neg (Negative) 07/06/16 01:18 Urine Urobilinogen < 2.0 mg/dL (<2.0) 07/06/16 01:18 Ur Leukocyte Esterase Mod (Negative) 07/06/16 01:18 Urine WBC (Auto) 7.0 /HPF (0.0-6.0) H 07/06/16 01:18 Urine RBC (Auto) 3.0 /HPF (0.0-6.0) 07/06/16 01:18 U Epithel Cells (Auto) 1.0 /HPF (0-13.0) 06/30/16 11:34 Urine Bacteria (Auto) 1+ /HPF (Negative) 06/30/16 11:34 Urine Eosinophils None seen (None Seen) 07/06/16 01:18 Urine Creatinine 36.6 mg/dL (0.1-20.0) H 07/06/16 01:18 Urine Microalbumin 6.5 mg/dL (0.1-34.0) 07/06/16 01:18 Microalb/Creat Ratio 177.5 ug/mg 07/06/16 01:18 Urine Sodium 28 mEq/L 07/06/16 01:18 Urine Opiates Screen Presumptive negative 06/30/16 11:34 Urine Methadone Screen Presumptive negative 06/30/16 11:34 Acetaminophen < 15.0 ug/mL (10.0-30.0) 06/30/16 12:01 Ur Barbiturates Screen Presumptive negative 06/30/16 11:34 Ur Phencyclidine Scrn Presumptive negative 06/30/16 11:34 Ur Amphetamines Screen Presumptive negative 06/30/16 11:34 U Benzodiazepines Scrn Presumptive negative 06/30/16 11:34 Urine Cocaine Screen Presumptive negative 06/30/16 11:34 U Marijuana (THC) Screen Presumptive negative 06/30/16 11:34 Drugs of Abuse Note Disclamer 06/30/16 11:34 Plasma/Serum Alcohol < 0.01 gm% (0-0.07) 06/30/16 12:01 Hepatitis A IgM Ab -1 (NonReactive) 07/16/16 19:08 Hep Bs Antigen Non-reactive (Negative) 07/16/16 19:08 Hep B Core IgM Ab Non-reactive (NonReactive) 07/16/16 19:08 Hepatitis C Antibody Non-reactive (NonReactive) 07/16/16 19:08 Blood Type O POSITIVE 07/26/16 15:10 Antibody Screen Negative 07/26/16 15:10 Crossmatch See Detail 07/26/16 15:10
[2016-07-28] MEDS: KCL 10MEQ/100ML 100 ML IV SCH (19:10)
--- NOTE | 2016-07-28 20:23 | Progress Note ---
Assessment and Plan Patient undergoing Hemodialysis at this time. Resting on 2 litres O2. No respiratory distress. - Patient Problems (1) Angioedema Current Visit: Yes Status: Acute Plan to address problem: Improved. (2) GABRIELA (acute kidney injury) Current Visit: Yes Status: Acute Plan to address problem: Patient is on dialysis. Mangement as per nephrology. (3) Encephalopathy acute Current Visit: Yes Status: Chronic Plan to address problem: Management as per primary care. (4) Hypertension Current Visit: Yes Status: Acute Plan to address problem: Management as per primary care. (5) Diabetes Current Visit: No Status: Acute Qualifiers: Diabetes mellitus type: type 2 Diabetes mellitus complication status: with kidney complications Diabetes mellitus complication detail: with chronic kidney disease Plan to address problem: Management as per primary care. (6) Bipolar disorder Current Visit: No Status: Acute Qualifiers: Active/Remission status: remission status unspecified Most recent bipolar episode type: most recent episode unspecified type Plan to address problem: Management as per primary care and psychiatry. Subjective Date of service: 07/28/16 Principal diagnosis: Acute Respiratory Failure; Angioedema Interval history: Patient undergoing Hemodialysis at this time. Resting on 2 litres O2. No respiratory distress. Objective Vital Signs - 12hr 07/28/16 07/28/16 07/28/16 09:35 15:25 15:30 Temperature 100.0 F H Pulse Rate [ 80 Right Radial] Respiratory 14 Rate Blood Pressure 92/46 100/47 Blood Pressure 100/47 [Right Arm] Constitutional: no acute distress, lethargic, other (does not localize to sternal rub) Eyes: non-icteric ENT: oropharynx moist Neck: supple, no lymphadenopathy Effort: normal Ascultation: Bilateral: diminished breath sounds (bases) Cardiovascular: regular rate and rhythm Gastrointestinal: normoactive bowel sounds, soft, non-tender, non-distended Integumentary: normal Extremities: no cyanosis, no edema, pulses normal, no ischemia or petechiae Neurologic: non-focal exam (grossly), pupils equal and round, CN II-XII normal Psychiatric: other (somnolent) CBC and BMP: 07/28/16 05:56 07/28/16 05:56 ABG, PT/INR, D-dimer: ABG POC ABG pH 7.523 (7.35-7.45) H 07/26/16 13:02 POC ABG pCO2 31.3 (35-45) L 07/26/16 13:02 POC ABG pO2 96 (80-105) 07/26/16 13:02 POC ABG HCO3 25.7 07/26/16 13:02 POC ABG Total CO2 27 07/26/16 13:02 POC ABG O2 Sat 98 07/26/16 13:02 PT/INR, D-dimer PT 14.1 Sec. (12.2-14.9) 07/18/16 05:06 INR 1.10 (0.87-1.13) 07/18/16 05:06 D-Dimer 751.80 ng/mlDDU (0-234) H 07/11/16 12:22 Abnormal lab findings: Abnormal Labs 07/03/16 07/03/16 07/04/16 14:34 14:34 06:21 WBC 3.9 L RBC 3.16 L 3.04 L Hgb 8.5 L 8.0 L Hct 26.8 L 25.6 L MCH 27 L 26 L RDW 16.5 H 16.2 H Plt Count Lymph % (Auto) [place] % (Auto) 10.7 H 10.7 H Lymph # 1.0 L [place] # Seg Neutrophils % Seg Neuts % (Manual) Lymphocytes % (Manual) Seg Neutrophils # Seg Neutrophils # Man Lymphocytes # (Manual) D-Dimer POC ABG pH POC ABG pCO2 POC ABG pO2 Sodium Potassium Chloride 107.6 H Carbon Dioxide BUN 27 H Creatinine 2.6 H Glucose POC Glucose Calcium 8.0 L Phosphorus Albumin TSH Urine WBC (Auto) Urine Creatinine Crossmatch 07/04/16 07/04/16 07/04/16 06:21 11:30 16:33 WBC RBC Hgb Hct MCH RDW Plt Count Lymph % (Auto) [place] % (Auto) Lymph # [place] # Seg Neutrophils % Seg Neuts % (Manual) Lymphocytes % (Manual) Seg Neutrophils # Seg Neutrophils # Man Lymphocytes # (Manual) D-Dimer POC ABG pH POC ABG pCO2 POC ABG pO2 Sodium Potassium Chloride 107.4 H Carbon Dioxide 21 L BUN 27 H Creatinine 2.7 H Glucose POC Glucose 110 H 106 H Calcium 7.8 L Phosphorus Albumin TSH Urine WBC (Auto) Urine Creatinine Crossmatch 07/05/16 07/05/16 07/05/16 05:08 05:08 05:08 WBC 4.0 L RBC 2.87 L Hgb 7.7 L Hct 24.2 L MCH 27 L RDW 16.0 H Plt Count Lymph % (Auto) [place] % (Auto) Lymph # [place] # Seg Neutrophils % Seg Neuts % (Manual) Lymphocytes % (Manual) Seg Neutrophils # Seg Neutrophils # Man Lymphocytes # (Manual) D-Dimer POC ABG pH POC ABG pCO2 POC ABG pO2 Sodium Potassium Chloride Carbon Dioxide 21 L BUN 32 H Creatinine 3.7 H Glucose POC Glucose Calcium 7.8 L Phosphorus Albumin TSH 8.090 H Urine WBC (Auto) Urine Creatinine Crossmatch 07/05/16 07/06/16 07/06/16 11:45 01:18 01:18 WBC RBC Hgb 8.3 L Hct 25.9 L MCH RDW Plt Count Lymph % (Auto) [place] % (Auto) Lymph # [place] # Seg Neutrophils % Seg Neuts % (Manual) Lymphocytes % (Manual) Seg Neutrophils # Seg Neutrophils # Man Lymphocytes # (Manual) D-Dimer POC ABG pH POC ABG pCO2 POC ABG pO2 Sodium Potassium Chloride Carbon Dioxide BUN Creatinine Glucose POC Glucose Calcium Phosphorus Albumin TSH Urine WBC (Auto) 7.0 H Urine Creatinine 36.6 H Crossmatch 07/06/16 07/06/16 07/06/16 05:55 05:55 16:07 WBC 3.0 L RBC 2.79 L Hgb 7.5 L Hct 23.5 L MCH 27 L RDW 16.5 H Plt Count Lymph % (Auto) [place] % (Auto) Lymph # [place] # Seg Neutrophils % Seg Neuts % (Manual) Lymphocytes % (Manual) Seg Neutrophils # Seg Neutrophils # Man Lymphocytes # (Manual) D-Dimer POC ABG pH POC ABG pCO2 POC ABG pO2 Sodium Potassium Chloride 109.3 H Carbon Dioxide 20 L BUN 32 H Creatinine 3.4 H Glucose POC Glucose 117 H Calcium 7.5 L Phosphorus Albumin TSH Urine WBC (Auto) Urine Creatinine Crossmatch 07/07/16 07/07/16 07/08/16 06:19 16:13 00:09 WBC RBC Hgb Hct MCH RDW Plt Count Lymph % (Auto) [place] % (Auto) Lymph # [place] # Seg Neutrophils % Seg Neuts % (Manual) Lymphocytes % (Manual) Seg Neutrophils # Seg Neutrophils # Man Lymphocytes # (Manual) D-Dimer POC ABG pH POC ABG pCO2 POC ABG pO2 Sodium Potassium Chloride 111.1 H Carbon Dioxide 20 L BUN 31 H Creatinine 3.1 H Glucose POC Glucose 108 H 134 H Calcium 8.0 L Phosphorus Albumin TSH Urine WBC (Auto) Urine Creatinine Crossmatch 07/08/16 07/08/16 07/08/16 11:39 16:31 21:22 WBC RBC Hgb Hct MCH RDW Plt Count Lymph % (Auto) [place] % (Auto) Lymph # [place] # Seg Neutrophils % Seg Neuts % (Manual) Lymphocytes % (Manual) Seg Neutrophils # Seg Neutrophils # Man Lymphocytes # (Manual) D-Dimer POC ABG pH POC ABG pCO2 POC ABG pO2 Sodium Potassium Chloride Carbon Dioxide BUN Creatinine Glucose POC Glucose 119 H 130 H 152 H Calcium Phosphorus Albumin TSH Urine WBC (Auto) Urine Creatinine Crossmatch 07/09/16 07/09/16 07/09/16 05:52 05:52 06:02 WBC RBC 3.55 L Hgb 9.4 L Hct MCH 27 L RDW 17.1 H Plt Count Lymph % (Auto) [place] % (Auto) Lymph # [place] # Seg Neutrophils % Seg Neuts % (Manual) Lymphocytes % (Manual) Seg Neutrophils # Seg Neutrophils # Man Lymphocytes # (Manual) D-Dimer POC ABG pH POC ABG pCO2 POC ABG pO2 Sodium 147 H Potassium 5.4 H Chloride 112.8 H Carbon Dioxide 21 L BUN 30 H Creatinine 2.5 H Glucose 21 L* POC Glucose < 40 L Calcium Phosphorus Albumin TSH Urine WBC (Auto) Urine Creatinine Crossmatch 07/09/16 07/09/16 07/10/16 11:31 16:50 05:23 WBC RBC Hgb Hct MCH RDW Plt Count Lymph % (Auto) [place] % (Auto) Lymph # [place] # Seg Neutrophils % Seg Neuts % (Manual) Lymphocytes % (Manual) Seg Neutrophils # Seg Neutrophils # Man Lymphocytes # (Manual) D-Dimer POC ABG pH POC ABG pCO2 POC ABG pO2 Sodium Potassium Chloride Carbon Dioxide BUN Creatinine Glucose POC Glucose 114 H 149 H < 40 L Calcium Phosphorus Albumin TSH Urine WBC (Auto) Urine Creatinine Crossmatch 07/10/16 07/10/16 07/10/16 06:03 06:43 06:43 WBC RBC 2.90 L Hgb 7.7 L Hct 25.0 L MCH 27 L RDW 17.0 H Plt Count Lymph % (Auto) [place] % (Auto) 10.4 H Lymph # 1.1 L [place] # Seg Neutrophils % Seg Neuts % (Manual) Lymphocytes % (Manual) Seg Neutrophils # Seg Neutrophils # Man Lymphocytes # (Manual) D-Dimer POC ABG pH POC ABG pCO2 POC ABG pO2 Sodium 148 H Potassium 5.1 H Chloride 111.7 H Carbon Dioxide 20 L BUN 31 H Creatinine 2.4 H Glucose POC Glucose 211 H Calcium 8.0 L Phosphorus Albumin 3.5 L TSH Urine WBC (Auto) Urine Creatinine Crossmatch 07/10/16 07/11/16 07/11/16 14:55 05:37 05:47 WBC RBC Hgb 7.9 L Hct 25.5 L MCH RDW Plt Count Lymph % (Auto) [place] % (Auto) Lymph # [place] # Seg Neutrophils % Seg Neuts % (Manual) Lymphocytes % (Manual) Seg Neutrophils # Seg Neutrophils # Man Lymphocytes # (Manual) D-Dimer POC ABG pH POC ABG pCO2 POC ABG pO2 Sodium Potassium Chloride Carbon Dioxide BUN Creatinine Glucose POC Glucose < 40 L > 500 H Calcium Phosphorus Albumin TSH Urine WBC (Auto) Urine Creatinine Crossmatch 07/11/16 07/11/16 07/11/16 05:56 07:42 07:48 WBC RBC Hgb Hct MCH RDW Plt Count Lymph % (Auto) [place] % (Auto) Lymph # [place] # Seg Neutrophils % Seg Neuts % (Manual) Lymphocytes % (Manual) Seg Neutrophils # Seg Neutrophils # Man Lymphocytes # (Manual) D-Dimer POC ABG pH POC ABG pCO2 POC ABG pO2 Sodium Potassium Chloride Carbon Dioxide BUN Creatinine Glucose POC Glucose 262 H 56 L 54 L Calcium Phosphorus Albumin TSH Urine WBC (Auto) Urine Creatinine Crossmatch 07/11/16 07/11/16 07/11/16 08:34 08:50 09:53 WBC RBC Hgb Hct MCH RDW Plt Count Lymph % (Auto) [place] % (Auto) Lymph # [place] # Seg Neutrophils % Seg Neuts % (Manual) Lymphocytes % (Manual) Seg Neutrophils # Seg Neutrophils # Man Lymphocytes # (Manual) D-Dimer POC ABG pH POC ABG pCO2 31.1 L POC ABG pO2 108 H Sodium Potassium Chloride Carbon Dioxide BUN Creatinine Glucose POC Glucose 110 H 68 L Calcium Phosphorus Albumin TSH Urine WBC (Auto) Urine Creatinine Crossmatch 07/11/16 07/11/16 07/11/16 11:48 12:22 12:22 WBC 11.6 H RBC Hgb Hct MCH 27 L RDW 17.2 H Plt Count Lymph % (Auto) [place] % (Auto) Lymph # [place] # Seg Neutrophils % Seg Neuts % (Manual) 91.0 H Lymphocytes % (Manual) 5.0 L Seg Neutrophils # 10.8 H Seg Neutrophils # Man 10.6 H Lymphocytes # (Manual) 0.6 L D-Dimer 751.80 H POC ABG pH POC ABG pCO2 POC ABG pO2 Sodium Potassium Chloride Carbon Dioxide BUN Creatinine Glucose POC Glucose 118 H Calcium Phosphorus Albumin TSH Urine WBC (Auto) Urine Creatinine Crossmatch 07/11/16 07/11/16 07/11/16 12:22 12:29 15:23 WBC RBC Hgb Hct MCH RDW Plt Count Lymph % (Auto) [place] % (Auto) Lymph # [place] # Seg Neutrophils % Seg Neuts % (Manual) Lymphocytes % (Manual) Seg Neutrophils # Seg Neutrophils # Man Lymphocytes # (Manual) D-Dimer POC ABG pH POC ABG pCO2 28.4 L POC ABG pO2 Sodium Potassium 6.1 H* Chloride 109.4 H Carbon Dioxide 18 L BUN 30 H Creatinine 2.1 H Glucose 126 H POC Glucose 204 H Calcium Phosphorus Albumin TSH Urine WBC (Auto) Urine Creatinine Crossmatch 07/11/16 07/11/16 07/11/16 17:27 17:55 21:42 WBC RBC Hgb Hct MCH RDW Plt Count Lymph % (Auto) [place] % (Auto) Lymph # [place] # Seg Neutrophils % Seg Neuts % (Manual) Lymphocytes % (Manual) Seg Neutrophils # Seg Neutrophils # Man Lymphocytes # (Manual) D-Dimer POC ABG pH POC ABG pCO2 POC ABG pO2 Sodium 146 H Potassium 6.5 H* Chloride 109.7 H Carbon Dioxide 20 L BUN 32 H Creatinine 2.4 H Glucose 167 H POC Glucose 433 H 142 H Calcium Phosphorus Albumin TSH Urine WBC (Auto) Urine Creatinine Crossmatch 07/12/16 07/12/16 07/12/16 04:34 04:34 05:22 WBC 14.0 H RBC Hgb Hct MCH 27 L RDW 17.6 H Plt Count 113 L Lymph % (Auto) [place] % (Auto) Lymph # [place] # Seg Neutrophils % Seg Neuts % (Manual) 87.0 H Lymphocytes % (Manual) 11.0 L Seg Neutrophils # Seg Neutrophils # Man 12.2 H Lymphocytes # (Manual) D-Dimer POC ABG pH 7.452 H POC ABG pCO2 29.6 L POC ABG pO2 Sodium Potassium 6.8 H* Chloride 110.2 H Carbon Dioxide 16 L BUN 43 H Creatinine 2.9 H Glucose 113 H POC Glucose Calcium Phosphorus Albumin TSH Urine WBC (Auto) Urine Creatinine Crossmatch 07/12/16 07/12/16 07/12/16 13:24 17:28 21:11 WBC RBC Hgb Hct MCH RDW Plt Count Lymph % (Auto) [place] % (Auto) Lymph # [place] # Seg Neutrophils % Seg Neuts % (Manual) Lymphocytes % (Manual) Seg Neutrophils # Seg Neutrophils # Man Lymphocytes # (Manual) D-Dimer POC ABG pH POC ABG pCO2 POC ABG pO2 Sodium 150 H Potassium Chloride 108.9 H Carbon Dioxide 21 L BUN 52 H Creatinine 3.7 H Glucose 143 H POC Glucose 148 H 134 H Calcium 8.0 L Phosphorus Albumin TSH Urine WBC (Auto) Urine Creatinine Crossmatch 07/12/16 07/13/16 07/13/16 21:50 04:40 04:40 WBC 14.0 H RBC 3.50 L Hgb 9.3 L Hct 29.3 L MCH 27 L RDW 17.3 H Plt Count Lymph % (Auto) 4.9 L [place] % (Auto) Lymph # 0.7 L [place] # Seg Neutrophils % 90.0 H Seg Neuts % (Manual) 93.0 H Lymphocytes % (Manual) 5.0 L Seg Neutrophils # 12.6 H Seg Neutrophils # Man 13.0 H Lymphocytes # (Manual) 0.7 L D-Dimer POC ABG pH POC ABG pCO2 POC ABG pO2 Sodium 151 H Potassium Chloride 109.3 H Carbon Dioxide BUN 59 H Creatinine 4.0 H Glucose 63 L POC Glucose 156 H Calcium 7.7 L Phosphorus Albumin TSH Urine WBC (Auto) Urine Creatinine Crossmatch 07/13/16 07/13/16 07/13/16 06:10 06:40 08:03 WBC RBC Hgb Hct MCH RDW Plt Count Lymph % (Auto) [place] % (Auto) Lymph # [place] # Seg Neutrophils % Seg Neuts % (Manual) Lymphocytes % (Manual) Seg Neutrophils # Seg Neutrophils # Man Lymphocytes # (Manual) D-Dimer POC ABG pH POC ABG pCO2 POC ABG pO2 Sodium Potassium Chloride Carbon Dioxide BUN Creatinine Glucose POC Glucose 68 L 176 H 141 H Calcium Phosphorus Albumin TSH Urine WBC (Auto) Urine Creatinine Crossmatch 07/13/16 07/13/16 07/13/16 09:17 12:30 14:15 WBC RBC Hgb Hct MCH RDW Plt Count Lymph % (Auto) [place] % (Auto) Lymph # [place] # Seg Neutrophils % Seg Neuts % (Manual) Lymphocytes % (Manual) Seg Neutrophils # Seg Neutrophils # Man Lymphocytes # (Manual) D-Dimer POC ABG pH 7.475 H 7.529 H POC ABG pCO2 33.4 L 26.8 L POC ABG pO2 110 H 70 L Sodium Potassium Chloride Carbon Dioxide BUN Creatinine Glucose POC Glucose 177 H Calcium Phosphorus Albumin TSH Urine WBC (Auto) Urine Creatinine Crossmatch 07/13/16 07/13/16 07/13/16 15:28 17:57 22:10 WBC RBC Hgb Hct MCH RDW Plt Count Lymph % (Auto) [place] % (Auto) Lymph # [place] # Seg Neutrophils % Seg Neuts % (Manual) Lymphocytes % (Manual) Seg Neutrophils # Seg Neutrophils # Man Lymphocytes # (Manual) D-Dimer POC ABG pH POC ABG pCO2 POC ABG pO2 Sodium Potassium Chloride Carbon Dioxide BUN Creatinine Glucose POC Glucose 122 H 166 H 197 H Calcium Phosphorus Albumin TSH Urine WBC (Auto) Urine Creatinine Crossmatch 07/14/16 07/14/16 07/14/16 02:00 04:21 04:21 WBC RBC 3.01 L Hgb 8.1 L Hct 25.3 L MCH 27 L RDW 17.9 H Plt Count Lymph % (Auto) 6.1 L [place] % (Auto) Lymph # 0.5 L [place] # Seg Neutrophils % 89.9 H Seg Neuts % (Manual) Lymphocytes % (Manual) Seg Neutrophils # Seg Neutrophils # Man Lymphocytes # (Manual) D-Dimer POC ABG pH POC ABG pCO2 POC ABG pO2 Sodium 150 H Potassium Chloride 107.3 H Carbon Dioxide 21 L BUN 82 H Creatinine 4.8 H Glucose 176 H POC Glucose 166 H Calcium 6.8 L Phosphorus Albumin TSH Urine WBC (Auto) Urine Creatinine Crossmatch 07/14/16 07/14/16 07/14/16 05:32 09:42 22:32 WBC RBC Hgb Hct MCH RDW Plt Count Lymph % (Auto) [place] % (Auto) Lymph # [place] # Seg Neutrophils % Seg Neuts % (Manual) Lymphocytes % (Manual) Seg Neutrophils # Seg Neutrophils # Man Lymphocytes # (Manual) D-Dimer POC ABG pH POC ABG pCO2 POC ABG pO2 Sodium Potassium Chloride Carbon Dioxide BUN Creatinine Glucose POC Glucose 202 H 216 H 191 H Calcium Phosphorus Albumin TSH Urine WBC (Auto) Urine Creatinine Crossmatch 07/15/16 07/15/16 07/15/16 04:46 04:56 04:56 WBC RBC 3.04 L Hgb 8.2 L Hct 25.8 L MCH 27 L RDW 17.3 H Plt Count Lymph % (Auto) 4.2 L [place] % (Auto) 11.8 H Lymph # 0.4 L [place] # 1.1 H Seg Neutrophils % 83.9 H Seg Neuts % (Manual) Lymphocytes % (Manual) Seg Neutrophils # Seg Neutrophils # Man Lymphocytes # (Manual) D-Dimer POC ABG pH POC ABG pCO2 POC ABG pO2 Sodium 147 H Potassium 3.4 L Chloride Carbon Dioxide 20 L BUN 109 H Creatinine 5.2 H Glucose 242 H POC Glucose 275 H Calcium 6.3 L Phosphorus Albumin TSH Urine WBC (Auto) Urine Creatinine Crossmatch 07/15/16 07/15/16 07/15/16 11:32 16:52 20:41 WBC RBC Hgb Hct MCH RDW Plt Count Lymph % (Auto) [place] % (Auto) Lymph # [place] # Seg Neutrophils % Seg Neuts % (Manual) Lymphocytes % (Manual) Seg Neutrophils # Seg Neutrophils # Man Lymphocytes # (Manual) D-Dimer POC ABG pH POC ABG pCO2 POC ABG pO2 Sodium Potassium Chloride Carbon Dioxide BUN Creatinine Glucose POC Glucose 250 H 195 H 219 H Calcium Phosphorus Albumin TSH Urine WBC (Auto) Urine Creatinine Crossmatch 07/16/16 07/16/16 07/16/16 00:37 05:47 09:54 WBC RBC 3.20 L Hgb 8.6 L Hct 27.3 L MCH 27 L RDW 17.1 H Plt Count Lymph % (Auto) 4.2 L [place] % (Auto) Lymph # 0.3 L [place] # Seg Neutrophils % 89.6 H Seg Neuts % (Manual) Lymphocytes % (Manual) Seg Neutrophils # Seg Neutrophils # Man Lymphocytes # (Manual) D-Dimer POC ABG pH POC ABG pCO2 POC ABG pO2 Sodium Potassium Chloride Carbon Dioxide BUN Creatinine Glucose POC Glucose 257 H 223 H Calcium Phosphorus Albumin TSH Urine WBC (Auto) Urine Creatinine Crossmatch 07/16/16 07/16/16 07/16/16 09:54 11:54 17:48 WBC RBC Hgb Hct MCH RDW Plt Count Lymph % (Auto) [place] % (Auto) Lymph # [place] # Seg Neutrophils % Seg Neuts % (Manual) Lymphocytes % (Manual) Seg Neutrophils # Seg Neutrophils # Man Lymphocytes # (Manual) D-Dimer POC ABG pH POC ABG pCO2 POC ABG pO2 Sodium 148 H Potassium Chloride Carbon Dioxide 21 L BUN 146 H Creatinine 6.0 H Glucose 249 H POC Glucose 294 H 195 H Calcium 6.4 L Phosphorus Albumin TSH Urine WBC (Auto) Urine Creatinine Crossmatch 07/16/16 07/16/16 07/17/16 21:54 23:53 05:53 WBC RBC Hgb Hct MCH RDW Plt Count Lymph % (Auto) [place] % (Auto) Lymph # [place] # Seg Neutrophils % Seg Neuts % (Manual) Lymphocytes % (Manual) Seg Neutrophils # Seg Neutrophils # Man Lymphocytes # (Manual) D-Dimer POC ABG pH POC ABG pCO2 POC ABG pO2 Sodium Potassium Chloride Carbon Dioxide BUN Creatinine Glucose POC Glucose 161 H 171 H 208 H Calcium Phosphorus Albumin TSH Urine WBC (Auto) Urine Creatinine Crossmatch 07/17/16 07/17/16 07/17/16 06:52 06:52 11:28 WBC RBC 3.17 L Hgb 8.6 L Hct 26.4 L MCH 27 L RDW 17.2 H Plt Count Lymph % (Auto) [place] % (Auto) Lymph # [place] # Seg Neutrophils % Seg Neuts % (Manual) 90.0 H Lymphocytes % (Manual) 8.0 L Seg Neutrophils # Seg Neutrophils # Man Lymphocytes # (Manual) 0.6 L D-Dimer POC ABG pH POC ABG pCO2 POC ABG pO2 Sodium Potassium Chloride Carbon Dioxide BUN 87 H Creatinine 4.2 H Glucose 231 H POC Glucose 255 H Calcium 6.2 L Phosphorus 5.2 H Albumin TSH Urine WBC (Auto) Urine Creatinine Crossmatch 07/17/16 07/17/16 07/18/16 16:22 23:41 05:06 WBC RBC 3.25 L Hgb 8.8 L Hct 27.2 L MCH 27 L RDW 17.0 H Plt Count Lymph % (Auto) [place] % (Auto) Lymph # [place] # Seg Neutrophils % Seg Neuts % (Manual) 80.0 H Lymphocytes % (Manual) 10.0 L Seg Neutrophils # Seg Neutrophils # Man Lymphocytes # (Manual) 0.9 L D-Dimer POC ABG pH POC ABG pCO2 POC ABG pO2 Sodium Potassium Chloride Carbon Dioxide BUN Creatinine Glucose POC Glucose 263 H 195 H Calcium Phosphorus Albumin TSH Urine WBC (Auto) Urine Creatinine Crossmatch 07/18/16 07/18/16 07/18/16 05:06 06:52 11:52 WBC RBC Hgb Hct MCH RDW Plt Count Lymph % (Auto) [place] % (Auto) Lymph # [place] # Seg Neutrophils % Seg Neuts % (Manual) Lymphocytes % (Manual) Seg Neutrophils # Seg Neutrophils # Man Lymphocytes # (Manual) D-Dimer POC ABG pH POC ABG pCO2 POC ABG pO2 Sodium Potassium Chloride 97.7 L Carbon Dioxide BUN 51 H Creatinine 2.8 H Glucose 252 H POC Glucose 289 H 242 H Calcium 6.4 L Phosphorus Albumin TSH Urine WBC (Auto) Urine Creatinine Crossmatch 07/18/16 07/18/16 07/19/16 16:36 21:34 05:50 WBC RBC Hgb Hct MCH RDW Plt Count Lymph % (Auto) [place] % (Auto) Lymph # [place] # Seg Neutrophils % Seg Neuts % (Manual) Lymphocytes % (Manual) Seg Neutrophils # Seg Neutrophils # Man Lymphocytes # (Manual) D-Dimer POC ABG pH POC ABG pCO2 POC ABG pO2 Sodium Potassium Chloride Carbon Dioxide BUN Creatinine Glucose POC Glucose 221 H 210 H 273 H Calcium Phosphorus Albumin TSH Urine WBC (Auto) Urine Creatinine Crossmatch 07/19/16 07/19/16 07/19/16 07:09 17:06 21:56 WBC RBC Hgb Hct MCH RDW Plt Count Lymph % (Auto) [place] % (Auto) Lymph # [place] # Seg Neutrophils % Seg Neuts % (Manual) Lymphocytes % (Manual) Seg Neutrophils # Seg Neutrophils # Man Lymphocytes # (Manual) D-Dimer POC ABG pH POC ABG pCO2 POC ABG pO2 Sodium Potassium Chloride 96.2 L Carbon Dioxide BUN 81 H Creatinine 4.9 H D Glucose 260 H POC Glucose 143 H 148 H Calcium 6.0 L Phosphorus Albumin TSH Urine WBC (Auto) Urine Creatinine Crossmatch 07/20/16 07/20/16 07/20/16 05:21 06:29 11:01 WBC RBC Hgb Hct MCH RDW Plt Count Lymph % (Auto) [place] % (Auto) Lymph # [place] # Seg Neutrophils % Seg Neuts % (Manual) Lymphocytes % (Manual) Seg Neutrophils # Seg Neutrophils # Man Lymphocytes # (Manual) D-Dimer POC ABG pH POC ABG pCO2 POC ABG pO2 Sodium 136 L Potassium 3.4 L Chloride 94.4 L Carbon Dioxide BUN 43 H Creatinine 3.5 H Glucose 263 H POC Glucose 299 H 281 H Calcium 6.5 L Phosphorus Albumin TSH Urine WBC (Auto) Urine Creatinine Crossmatch 07/20/16 07/20/16 07/21/16 17:07 22:54 06:24 WBC RBC Hgb Hct MCH RDW Plt Count Lymph % (Auto) [place] % (Auto) Lymph # [place] # Seg Neutrophils % Seg Neuts % (Manual) Lymphocytes % (Manual) Seg Neutrophils # Seg Neutrophils # Man Lymphocytes # (Manual) D-Dimer POC ABG pH POC ABG pCO2 POC ABG pO2 Sodium Potassium Chloride Carbon Dioxide BUN Creatinine Glucose POC Glucose 253 H 209 H 346 H Calcium Phosphorus Albumin TSH Urine WBC (Auto) Urine Creatinine Crossmatch 07/21/16 07/21/16 07/21/16 07:25 15:46 21:23 WBC RBC Hgb Hct MCH RDW Plt Count Lymph % (Auto) [place] % (Auto) Lymph # [place] # Seg Neutrophils % Seg Neuts % (Manual) Lymphocytes % (Manual) Seg Neutrophils # Seg Neutrophils # Man Lymphocytes # (Manual) D-Dimer POC ABG pH POC ABG pCO2 POC ABG pO2 Sodium 133 L Potassium Chloride 90.7 L Carbon Dioxide BUN 71 H Creatinine 4.8 H Glucose 289 H POC Glucose 112 H 218 H Calcium 6.2 L Phosphorus Albumin TSH Urine WBC (Auto) Urine Creatinine Crossmatch 07/22/16 07/22/16 07/22/16 06:28 11:49 16:37 WBC RBC Hgb Hct MCH RDW Plt Count Lymph % (Auto) [place] % (Auto) Lymph # [place] # Seg Neutrophils % Seg Neuts % (Manual) Lymphocytes % (Manual) Seg Neutrophils # Seg Neutrophils # Man Lymphocytes # (Manual) D-Dimer POC ABG pH POC ABG pCO2 POC ABG pO2 Sodium Potassium Chloride Carbon Dioxide BUN Creatinine Glucose POC Glucose 316 H 211 H 185 H Calcium Phosphorus Albumin TSH Urine WBC (Auto) Urine Creatinine Crossmatch 07/22/16 07/23/16 07/23/16 20:24 05:19 12:10 WBC RBC Hgb Hct MCH RDW Plt Count Lymph % (Auto) [place] % (Auto) Lymph # [place] # Seg Neutrophils % Seg Neuts % (Manual) Lymphocytes % (Manual) Seg Neutrophils # Seg Neutrophils # Man Lymphocytes # (Manual) D-Dimer POC ABG pH POC ABG pCO2 POC ABG pO2 Sodium Potassium Chloride Carbon Dioxide BUN Creatinine Glucose POC Glucose 213 H 319 H 261 H Calcium Phosphorus Albumin TSH Urine WBC (Auto) Urine Creatinine Crossmatch 07/23/16 07/23/16 07/24/16 15:49 20:58 05:29 WBC RBC Hgb Hct MCH RDW Plt Count Lymph % (Auto) [place] % (Auto) Lymph # [place] # Seg Neutrophils % Seg Neuts % (Manual) Lymphocytes % (Manual) Seg Neutrophils # Seg Neutrophils # Man Lymphocytes # (Manual) D-Dimer POC ABG pH POC ABG pCO2 POC ABG pO2 Sodium Potassium Chloride Carbon Dioxide BUN Creatinine Glucose POC Glucose 271 H 191 H 279 H Calcium Phosphorus Albumin TSH Urine WBC (Auto) Urine Creatinine Crossmatch 07/24/16 07/24/16 07/24/16 05:53 16:20 21:31 WBC RBC Hgb Hct MCH RDW Plt Count Lymph % (Auto) [place] % (Auto) Lymph # [place] # Seg Neutrophils % Seg Neuts % (Manual) Lymphocytes % (Manual) Seg Neutrophils # Seg Neutrophils # Man Lymphocytes # (Manual) D-Dimer POC ABG pH POC ABG pCO2 POC ABG pO2 Sodium Potassium Chloride Carbon Dioxide BUN 89 H Creatinine 5.3 H Glucose 273 H POC Glucose 161 H 136 H Calcium 6.2 L Phosphorus Albumin TSH Urine WBC (Auto) Urine Creatinine Crossmatch 07/25/16 07/25/16 07/25/16 06:25 11:56 16:10 WBC RBC Hgb Hct MCH RDW Plt Count Lymph % (Auto) [place] % (Auto) Lymph # [place] # Seg Neutrophils % Seg Neuts % (Manual) Lymphocytes % (Manual) Seg Neutrophils # Seg Neutrophils # Man Lymphocytes # (Manual) D-Dimer POC ABG pH POC ABG pCO2 POC ABG pO2 Sodium Potassium Chloride Carbon Dioxide BUN Creatinine Glucose POC Glucose 311 H 164 H 249 H Calcium Phosphorus Albumin TSH Urine WBC (Auto) Urine Creatinine Crossmatch 07/25/16 07/26/16 07/26/16 21:13 06:19 11:31 WBC RBC Hgb Hct MCH RDW Plt Count Lymph % (Auto) [place] % (Auto) Lymph # [place] # Seg Neutrophils % Seg Neuts % (Manual) Lymphocytes % (Manual) Seg Neutrophils # Seg Neutrophils # Man Lymphocytes # (Manual) D-Dimer POC ABG pH POC ABG pCO2 POC ABG pO2 Sodium Potassium Chloride Carbon Dioxide BUN Creatinine Glucose POC Glucose 194 H 280 H 191 H Calcium Phosphorus Albumin TSH Urine WBC (Auto) Urine Creatinine Crossmatch 07/26/16 07/26/16 07/26/16 12:50 12:50 13:02 WBC RBC 2.35 L Hgb 6.5 L Hct 20.0 L MCH RDW 18.4 H Plt Count 135 L Lymph % (Auto) 7.7 L [place] % (Auto) Lymph # 0.6 L [place] # Seg Neutrophils % 86.8 H Seg Neuts % (Manual) Lymphocytes % (Manual) Seg Neutrophils # Seg Neutrophils # Man Lymphocytes # (Manual) D-Dimer POC ABG pH 7.523 H POC ABG pCO2 31.3 L POC ABG pO2 Sodium Potassium Chloride Carbon Dioxide BUN 67 H Creatinine 4.9 H Glucose 139 H POC Glucose Calcium 6.1 L Phosphorus Albumin TSH Urine WBC (Auto) Urine Creatinine Crossmatch 07/26/16 07/26/16 07/26/16 15:10 16:11 23:25 WBC RBC Hgb Hct MCH RDW Plt Count Lymph % (Auto) [place] % (Auto) Lymph # [place] # Seg Neutrophils % Seg Neuts % (Manual) Lymphocytes % (Manual) Seg Neutrophils # Seg Neutrophils # Man Lymphocytes # (Manual) D-Dimer POC ABG pH POC ABG pCO2 POC ABG pO2 Sodium Potassium Chloride Carbon Dioxide BUN Creatinine Glucose POC Glucose 204 H 115 H Calcium Phosphorus Albumin TSH Urine WBC (Auto) Urine Creatinine Crossmatch See Detail 07/27/16 07/27/16 07/27/16 06:39 09:28 09:28 WBC RBC 3.30 L Hgb 9.4 L Hct 28.5 L D MCH RDW 16.5 H Plt Count 115 L Lymph % (Auto) [place] % (Auto) Lymph # [place] # Seg Neutrophils % 78.0 H Seg Neuts % (Manual) Lymphocytes % (Manual) Seg Neutrophils # 8.2 H Seg Neutrophils # Man Lymphocytes # (Manual) D-Dimer POC ABG pH POC ABG pCO2 POC ABG pO2 Sodium Potassium 2.6 L* D Chloride 97.7 L Carbon Dioxide BUN 36 H Creatinine 2.9 H Glucose 157 H POC Glucose 194 H Calcium 6.8 L Phosphorus Albumin TSH Urine WBC (Auto) Urine Creatinine Crossmatch 07/27/16 07/27/16 07/28/16 11:06 21:17 05:56 WBC RBC Hgb Hct MCH RDW Plt Count Lymph % (Auto) [place] % (Auto) Lymph # [place] # Seg Neutrophils % Seg Neuts % (Manual) Lymphocytes % (Manual) Seg Neutrophils # Seg Neutrophils # Man Lymphocytes # (Manual) D-Dimer POC ABG pH POC ABG pCO2 POC ABG pO2 Sodium Potassium 3.2 L D Chloride Carbon Dioxide BUN 46 H Creatinine 3.5 H Glucose 205 H POC Glucose 145 H 121 H Calcium 6.8 L Phosphorus Albumin TSH Urine WBC (Auto) Urine Creatinine Crossmatch 07/28/16 07/28/16 07/28/16 05:56 11:12 17:21 WBC RBC Hgb 9.1 L Hct 28.0 L MCH RDW Plt Count Lymph % (Auto) [place] % (Auto) Lymph # [place] # Seg Neutrophils % Seg Neuts % (Manual) Lymphocytes % (Manual) Seg Neutrophils # Seg Neutrophils # Man Lymphocytes # (Manual) D-Dimer POC ABG pH POC ABG pCO2 POC ABG pO2 Sodium Potassium Chloride Carbon Dioxide BUN Creatinine Glucose POC Glucose 125 H 157 H Calcium Phosphorus Albumin TSH Urine WBC (Auto) Urine Creatinine Crossmatch
--- NOTE | 2016-07-28 21:49 | Gastroenterology Consultation ---
History of Present Illness - Reason for Consult Consult date: 07/28/16 PEG tube placement, anemia - History of Present Illness Ms Sen is a 70 yo AAF with h/o CKD, dementia, and bipolar disorder who presented initially with AMS and respiratory failure 2/2 angioedema. Her respiratory status has since improved. She also developed acute on chronic renal failure is receiving dialysis. Pt unable to provide any history, and no family at bedside. History primarily gathered through chart review. Pt unable to complete swallow study, with alternate means of nutrition recommended. Pt's family reportedly agreeable to have this done. She also has had a chronic stable anemia since admission without signs of overt GI bleeding. Unknown extent of past work-up. Past History Past Medical History: diabetes, hypertension, renal failure, other (Bipolar, dementia) Past Surgical History: Other (left breast surgery) Social history: lives with family, full code. denies: smoking, alcohol abuse, prescription drug abuse, IV drug use Family history: no significant family history, other (Non contributary at this age.) Medications and Allergies Allergies Allergy/AdvReac Type Severity Reaction Status Date / Time lisinopril Allergy Severe Angioedema Uncoded 07/16/16 12:01 Home Medications Medication Instructions Recorded Confirmed Last Taken Type Insulin Aspart Prot/Aspart 45 units SUB-Q QHS 05/12/13 07/02/16 06/14/13 21:00 History [NovoLOG Mix 70/30 VIAL] Olanzapine 10 mg PO HS 06/12/13 07/02/16 06/15/13 20:00 History Insulin Regular, Human [HumuLIN R] 0 units SUB-Q ACHS units 02/08/15 07/02/16 Unknown Rx Labetalol [Normodyne TAB] 200 mg PO BID tablet 02/08/15 07/02/16 Unknown Rx NIFEdipine XL [Procardia Xl] 30 mg PO Q12HR #30 tablet 06/30/16 Unknown Rx hydrALAZINE [Apresoline TAB] 50 mg PO Q8HR #30 tablet 06/30/16 Unknown Rx Gabapentin [Neurontin] 100 mg PO BID 07/02/16 07/02/16 Unknown History Levothyroxine [Synthroid] 100 mcg PO DAILY@0600 07/02/16 07/02/16 Unknown History Sulfamethoxazole/Trimethoprim 1 each PO BID #20 tablet 07/02/16 Unknown Rx [Bactrim DS TAB] Active Meds: Active Medications Acetaminophen (Tylenol) 650 mg FEEDTUBE Q6H PRN PRN Reason: Pain, Mild (1-3) Last Admin: 07/26/16 22:53 Dose: 650 mg Lipase/Protease/Amylase (Pancreaze Dr 10,500 Unit) 1 each FEEDTUBE PRN PRN PRN Reason: For Clogged Feeding Tube Dextrose (D50w (25gm)) 50 ml IV PRN PRN PRN Reason: Hypoglycemia Diphenhydramine HCl (Benadryl) 25 mg IV Q6H PRN PRN Reason: Itching Epoetin Jarad (Procrit) 10,000 unit IV AIDA RACHEL Famotidine (Pepcid) 20 mg PO DAILY RACHEL Last Admin: 07/28/16 09:36 Dose: 20 mg Gabapentin (Neurontin) 100 mg PO BID RACHEL Last Admin: 07/28/16 09:36 Dose: 100 mg Heparin Sodium (Porcine) (Heparin) 5,000 unit SUB-Q Q8HR RACHEL Last Admin: 07/28/16 15:31 Dose: 5,000 unit Heparin Sodium (Porcine) (Heparin) 5,000 unit IV AIDA PRN PRN Reason: hemodialysis Last Admin: 07/26/16 21:15 Dose: 5,000 unit Hydralazine HCl (Apresoline) 10 mg IV Q6HR PRN PRN Reason: Hypertension Last Admin: 07/13/16 17:33 Dose: 10 mg Hydralazine HCl (Apresoline) 100 mg FEEDTUBE Q8HR RACHEL Last Admin: 07/28/16 15:30 Dose: Not Given Hydrophilic Ointment (Vaseline Lip Therapy) 1 applic TP Q2HR PRN PRN Reason: Dry Lips Sodium Chloride (Nacl 0.9% 1000 Ml) 100 mls @ 999 mls/hr IV AIDA PRN PRN Reason: Hypotension Sodium Chloride (Nacl 0.9% 1000 Ml) 1,000 mls @ 42 mls/hr IV DIRECT RACHEL Last Admin: 07/28/16 07:25 Dose: 42 mls/hr Sodium Chloride (Nacl 0.9% 1000 Ml) 1,000 mls @ 42 mls/hr IV DIRECT RACHEL Insulin Aspart (Novolog) 0 units SUB-Q ACHS RACHEL PRN Reason: Protocol Last Admin: 07/28/16 19:10 Dose: 1 units Labetalol HCl (Normodyne) 200 mg PO TID [facility] Last Admin: 07/28/16 15:30 Dose: Not Given Levalbuterol HCl (Xopenex) 1.25 mg IH Q3HRT PRN PRN Reason: Shortness Of Breath Levothyroxine Sodium (Synthroid) 150 mcg PO DAILY@0600 [facility] Last Admin: 07/28/16 05:54 Dose: 150 mcg Multi-Ingred Cream/Lotion/Oil/Oint (Artificial Tears Ophth Oint) 1 applic OU Q4HR PRN PRN Reason: Dry Eye(s) Olanzapine (Zyprexa) 10 mg PO HS [facility] Last Admin: 07/27/16 22:20 Dose: 10 mg Simple Syrup (Simple Syrup) 15 ml FEEDTUBE PRN PRN PRN Reason: Hypoglycemia Simple Syrup (Simple Syrup) 30 ml FEEDTUBE PRN PRN PRN Reason: Hypoglycemia Sodium Bicarbonate (Sodium Bicarbonate) 325 mg FEEDTUBE PRN PRN PRN Reason: For Clogged Feeding Tube Review of Systems - Review of Systems ROS unobtainable: due to mental status Exam - Exam Narrative Exam: Gen: NAD, overweight female, non verbal Head: nc/at Lungs: decreased breath sounds, otherwise ctab, non labored CV: RRR, no murmurs Abd: soft, obese, nt, nd, +bs Ext: + edema Skin: no obvious rashes Neuro: oriented x 0 - Constitutional Vital Signs: Temp Pulse Resp BP Pulse Ox 100.0 F H 87 14 124/58 99 07/28/16 15:25 07/28/16 20:15 07/28/16 15:25 07/28/16 20:15 07/28/16 00:43 - Labs CBC & Chem 7: 07/28/16 05:56 07/28/16 05:56 Lab Results: Laboratory Results - last 24 hr 07/28/16 07/28/16 07/28/16 05:56 05:56 11:12 Hgb 9.1 L Hct 28.0 L Sodium 142 Potassium 3.2 L D Chloride 99.0 Carbon Dioxide 27 Anion Gap 19 BUN 46 H Creatinine 3.5 H Estimated GFR 16 BUN/Creatinine Ratio 13.14 Glucose 205 H POC Glucose 125 H Calcium 6.8 L 07/28/16 17:21 Hgb Hct Sodium Potassium Chloride Carbon Dioxide Anion Gap BUN Creatinine Estimated GFR BUN/Creatinine Ratio Glucose POC Glucose 157 H Calcium Assessment and Plan 1. oropharyngeal dysphagia - likely neurologic, unable to complete swallow evaluation. family agreeable for PEG tube. Will discuss further with family, and plan for PEG tube early next week. 2. anemia - normocytic anemia, FOBT + on admission, no reported overt bleeding during hospitalization. likely multifactorial from renal disease and possibly ABHILASH. unknown if pt has had prior GI work-up for this EGD is done at time of PEG tube, but will need to discuss with family regarding any prior colonoscopy to attempt obtaining records. check iron studies.
[2016-07-28] MEDS: PROCRIT IV SCH (22:30)
[2016-07-28] MEDS: HEPARIN IV PRN (22:56)
[2016-07-29] MEDS: NOVOLOG SUB-Q SCH ×4 (01:50→17:59)
[2016-07-29] MEDS: NORMODYNE PO SCH ×4 (01:51→20:45)
[2016-07-29] MEDS: KCL 10MEQ/100ML 100 ML IV SCH ×2 (01:51→03:05)
[2016-07-29] MEDS: NEURONTIN PO SCH ×3 (01:51→23:06)
[2016-07-29] MEDS: APRESOLINE FEEDTUBE SCH ×4 (01:52→23:06)
[2016-07-29] MEDS: HEPARIN SUB-Q SCH ×4 (01:52→23:06)
[2016-07-29] MEDS: SYNTHROID PO SCH (06:36)
[2016-07-29] MEDS ORDERED: K-DUR PO ONE ×2 (09:54→15:04)
--- NOTE | 2016-07-29 11:09 | Progress Note ---
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 hydralazine, labetolol with prn IV meds (4) Acute respiratory failure Current Visit: Yes Status: Resolved Plan to address problem: - resolved mostly - tapered off scheduled benadryl - tapered to pepcid daily - tapered of systemic steroids - prn BIPAP - continue bronchodilators and pulmonary toilet - ASPIRATION precations (5) Angioedema Current Visit: Yes Status: Acute Plan to address problem: - resolved Subjective Date of service: 07/29/16 Principal diagnosis: Acute Respiratory Failure; Angioedema Interval history: Seen and examined at bedside; 24 hour events reviewed; nursing and respiratory care staff consulted; no adverse overnight events reported to me; no new issues; failed ST evaluation and will need PEG Objective Vital Signs - 12hr 07/29/16 07/29/16 07/29/16 01:00 01:51 05:13 Temperature 99.7 F H Pulse Rate 86 Pulse Rate [ Left Radial] Pulse Rate [ 88 86 Right Radial] Respiratory 16 24 Rate Blood Pressure 134/64 Blood Pressure [Left Arm] Blood Pressure 98/49 [Right Arm] O2 Sat by Pulse Oximetry 07/29/16 08:40 Temperature 99.8 F H Pulse Rate Pulse Rate [ 87 Left Radial] Pulse Rate [ Right Radial] Respiratory 22 Rate Blood Pressure Blood Pressure 95/51 [Left Arm] Blood Pressure [Right Arm] O2 Sat by Pulse 100 Oximetry Constitutional: no acute distress, lethargic, other (does not localize to sternal rub) Eyes: non-icteric ENT: oropharynx moist Neck: supple, no lymphadenopathy Effort: normal Ascultation: Bilateral: clear, diminished breath sounds (bases) Cardiovascular: regular rate and rhythm Gastrointestinal: normoactive bowel sounds, soft, non-tender, non-distended Integumentary: normal Extremities: no cyanosis, no edema, pulses normal, no ischemia or petechiae Neurologic: non-focal exam (grossly), pupils equal and round, CN II-XII normal Psychiatric: other (somnolent) CBC and BMP: 07/30/16 05:38 07/30/16 05:38 ABG, PT/INR, D-dimer: ABG POC ABG pH 7.523 (7.35-7.45) H 07/26/16 13:02 POC ABG pCO2 31.3 (35-45) L 07/26/16 13:02 POC ABG pO2 96 (80-105) 07/26/16 13:02 POC ABG HCO3 25.7 07/26/16 13:02 POC ABG Total CO2 27 07/26/16 13:02 POC ABG O2 Sat 98 07/26/16 13:02 PT/INR, D-dimer PT 14.1 Sec. (12.2-14.9) 07/18/16 05:06 INR 1.10 (0.87-1.13) 07/18/16 05:06 D-Dimer 751.80 ng/mlDDU (0-234) H 07/11/16 12:22 Abnormal lab findings: Abnormal Labs 07/03/16 07/03/16 07/04/16 14:34 14:34 06:21 WBC 3.9 L RBC 3.16 L 3.04 L Hgb 8.5 L 8.0 L Hct 26.8 L 25.6 L MCH 27 L 26 L RDW 16.5 H 16.2 H Plt Count Lymph % (Auto) [place] % (Auto) 10.7 H 10.7 H Lymph # 1.0 L [place] # Seg Neutrophils % Seg Neuts % (Manual) Lymphocytes % (Manual) Seg Neutrophils # Seg Neutrophils # Man Lymphocytes # (Manual) D-Dimer POC ABG pH POC ABG pCO2 POC ABG pO2 Sodium Potassium Chloride 107.6 H Carbon Dioxide BUN 27 H Creatinine 2.6 H Glucose POC Glucose Calcium 8.0 L Phosphorus Albumin TSH Urine WBC (Auto) Urine Creatinine Crossmatch 07/04/16 07/04/16 07/04/16 06:21 11:30 16:33 WBC RBC Hgb Hct MCH RDW Plt Count Lymph % (Auto) [place] % (Auto) Lymph # [place] # Seg Neutrophils % Seg Neuts % (Manual) Lymphocytes % (Manual) Seg Neutrophils # Seg Neutrophils # Man Lymphocytes # (Manual) D-Dimer POC ABG pH POC ABG pCO2 POC ABG pO2 Sodium Potassium Chloride 107.4 H Carbon Dioxide 21 L BUN 27 H Creatinine 2.7 H Glucose POC Glucose 110 H 106 H Calcium 7.8 L Phosphorus Albumin TSH Urine WBC (Auto) Urine Creatinine Crossmatch 07/05/16 07/05/16 07/05/16 05:08 05:08 05:08 WBC 4.0 L RBC 2.87 L Hgb 7.7 L Hct 24.2 L MCH 27 L RDW 16.0 H Plt Count Lymph % (Auto) [place] % (Auto) Lymph # [place] # Seg Neutrophils % Seg Neuts % (Manual) Lymphocytes % (Manual) Seg Neutrophils # Seg Neutrophils # Man Lymphocytes # (Manual) D-Dimer POC ABG pH POC ABG pCO2 POC ABG pO2 Sodium Potassium Chloride Carbon Dioxide 21 L BUN 32 H Creatinine 3.7 H Glucose POC Glucose Calcium 7.8 L Phosphorus Albumin TSH 8.090 H Urine WBC (Auto) Urine Creatinine Crossmatch 07/05/16 07/06/16 07/06/16 11:45 01:18 01:18 WBC RBC Hgb 8.3 L Hct 25.9 L MCH RDW Plt Count Lymph % (Auto) [place] % (Auto) Lymph # [place] # Seg Neutrophils % Seg Neuts % (Manual) Lymphocytes % (Manual) Seg Neutrophils # Seg Neutrophils # Man Lymphocytes # (Manual) D-Dimer POC ABG pH POC ABG pCO2 POC ABG pO2 Sodium Potassium Chloride Carbon Dioxide BUN Creatinine Glucose POC Glucose Calcium Phosphorus Albumin TSH Urine WBC (Auto) 7.0 H Urine Creatinine 36.6 H Crossmatch 07/06/16 07/06/16 07/06/16 05:55 05:55 16:07 WBC 3.0 L RBC 2.79 L Hgb 7.5 L Hct 23.5 L MCH 27 L RDW 16.5 H Plt Count Lymph % (Auto) [place] % (Auto) Lymph # [place] # Seg Neutrophils % Seg Neuts % (Manual) Lymphocytes % (Manual) Seg Neutrophils # Seg Neutrophils # Man Lymphocytes # (Manual) D-Dimer POC ABG pH POC ABG pCO2 POC ABG pO2 Sodium Potassium Chloride 109.3 H Carbon Dioxide 20 L BUN 32 H Creatinine 3.4 H Glucose POC Glucose 117 H Calcium 7.5 L Phosphorus Albumin TSH Urine WBC (Auto) Urine Creatinine Crossmatch 07/07/16 07/07/16 07/08/16 06:19 16:13 00:09 WBC RBC Hgb Hct MCH RDW Plt Count Lymph % (Auto) [place] % (Auto) Lymph # [place] # Seg Neutrophils % Seg Neuts % (Manual) Lymphocytes % (Manual) Seg Neutrophils # Seg Neutrophils # Man Lymphocytes # (Manual) D-Dimer POC ABG pH POC ABG pCO2 POC ABG pO2 Sodium Potassium Chloride 111.1 H Carbon Dioxide 20 L BUN 31 H Creatinine 3.1 H Glucose POC Glucose 108 H 134 H Calcium 8.0 L Phosphorus Albumin TSH Urine WBC (Auto) Urine Creatinine Crossmatch 07/08/16 07/08/16 07/08/16 11:39 16:31 21:22 WBC RBC Hgb Hct MCH RDW Plt Count Lymph % (Auto) [place] % (Auto) Lymph # [place] # Seg Neutrophils % Seg Neuts % (Manual) Lymphocytes % (Manual) Seg Neutrophils # Seg Neutrophils # Man Lymphocytes # (Manual) D-Dimer POC ABG pH POC ABG pCO2 POC ABG pO2 Sodium Potassium Chloride Carbon Dioxide BUN Creatinine Glucose POC Glucose 119 H 130 H 152 H Calcium Phosphorus Albumin TSH Urine WBC (Auto) Urine Creatinine Crossmatch 07/09/16 07/09/16 07/09/16 05:52 05:52 06:02 WBC RBC 3.55 L Hgb 9.4 L Hct MCH 27 L RDW 17.1 H Plt Count Lymph % (Auto) [place] % (Auto) Lymph # [place] # Seg Neutrophils % Seg Neuts % (Manual) Lymphocytes % (Manual) Seg Neutrophils # Seg Neutrophils # Man Lymphocytes # (Manual) D-Dimer POC ABG pH POC ABG pCO2 POC ABG pO2 Sodium 147 H Potassium 5.4 H Chloride 112.8 H Carbon Dioxide 21 L BUN 30 H Creatinine 2.5 H Glucose 21 L* POC Glucose < 40 L Calcium Phosphorus Albumin TSH Urine WBC (Auto) Urine Creatinine Crossmatch 07/09/16 07/09/16 07/10/16 11:31 16:50 05:23 WBC RBC Hgb Hct MCH RDW Plt Count Lymph % (Auto) [place] % (Auto) Lymph # [place] # Seg Neutrophils % Seg Neuts % (Manual) Lymphocytes % (Manual) Seg Neutrophils # Seg Neutrophils # Man Lymphocytes # (Manual) D-Dimer POC ABG pH POC ABG pCO2 POC ABG pO2 Sodium Potassium Chloride Carbon Dioxide BUN Creatinine Glucose POC Glucose 114 H 149 H < 40 L Calcium Phosphorus Albumin TSH Urine WBC (Auto) Urine Creatinine Crossmatch 07/10/16 07/10/16 07/10/16 06:03 06:43 06:43 WBC RBC 2.90 L Hgb 7.7 L Hct 25.0 L MCH 27 L RDW 17.0 H Plt Count Lymph % (Auto) [place] % (Auto) 10.4 H Lymph # 1.1 L [place] # Seg Neutrophils % Seg Neuts % (Manual) Lymphocytes % (Manual) Seg Neutrophils # Seg Neutrophils # Man Lymphocytes # (Manual) D-Dimer POC ABG pH POC ABG pCO2 POC ABG pO2 Sodium 148 H Potassium 5.1 H Chloride 111.7 H Carbon Dioxide 20 L BUN 31 H Creatinine 2.4 H Glucose POC Glucose 211 H Calcium 8.0 L Phosphorus Albumin 3.5 L TSH Urine WBC (Auto) Urine Creatinine Crossmatch 07/10/16 07/11/16 07/11/16 14:55 05:37 05:47 WBC RBC Hgb 7.9 L Hct 25.5 L MCH RDW Plt Count Lymph % (Auto) [place] % (Auto) Lymph # [place] # Seg Neutrophils % Seg Neuts % (Manual) Lymphocytes % (Manual) Seg Neutrophils # Seg Neutrophils # Man Lymphocytes # (Manual) D-Dimer POC ABG pH POC ABG pCO2 POC ABG pO2 Sodium Potassium Chloride Carbon Dioxide BUN Creatinine Glucose POC Glucose < 40 L > 500 H Calcium Phosphorus Albumin TSH Urine WBC (Auto) Urine Creatinine Crossmatch 07/11/16 07/11/16 07/11/16 05:56 07:42 07:48 WBC RBC Hgb Hct MCH RDW Plt Count Lymph % (Auto) [place] % (Auto) Lymph # [place] # Seg Neutrophils % Seg Neuts % (Manual) Lymphocytes % (Manual) Seg Neutrophils # Seg Neutrophils # Man Lymphocytes # (Manual) D-Dimer POC ABG pH POC ABG pCO2 POC ABG pO2 Sodium Potassium Chloride Carbon Dioxide BUN Creatinine Glucose POC Glucose 262 H 56 L 54 L Calcium Phosphorus Albumin TSH Urine WBC (Auto) Urine Creatinine Crossmatch 07/11/16 07/11/16 07/11/16 08:34 08:50 09:53 WBC RBC Hgb Hct MCH RDW Plt Count Lymph % (Auto) [place] % (Auto) Lymph # [place] # Seg Neutrophils % Seg Neuts % (Manual) Lymphocytes % (Manual) Seg Neutrophils # Seg Neutrophils # Man Lymphocytes # (Manual) D-Dimer POC ABG pH POC ABG pCO2 31.1 L POC ABG pO2 108 H Sodium Potassium Chloride Carbon Dioxide BUN Creatinine Glucose POC Glucose 110 H 68 L Calcium Phosphorus Albumin TSH Urine WBC (Auto) Urine Creatinine Crossmatch 07/11/16 07/11/16 07/11/16 11:48 12:22 12:22 WBC 11.6 H RBC Hgb Hct MCH 27 L RDW 17.2 H Plt Count Lymph % (Auto) [place] % (Auto) Lymph # [place] # Seg Neutrophils % Seg Neuts % (Manual) 91.0 H Lymphocytes % (Manual) 5.0 L Seg Neutrophils # 10.8 H Seg Neutrophils # Man 10.6 H Lymphocytes # (Manual) 0.6 L D-Dimer 751.80 H POC ABG pH POC ABG pCO2 POC ABG pO2 Sodium Potassium Chloride Carbon Dioxide BUN Creatinine Glucose POC Glucose 118 H Calcium Phosphorus Albumin TSH Urine WBC (Auto) Urine Creatinine Crossmatch 07/11/16 07/11/16 07/11/16 12:22 12:29 15:23 WBC RBC Hgb Hct MCH RDW Plt Count Lymph % (Auto) [place] % (Auto) Lymph # [place] # Seg Neutrophils % Seg Neuts % (Manual) Lymphocytes % (Manual) Seg Neutrophils # Seg Neutrophils # Man Lymphocytes # (Manual) D-Dimer POC ABG pH POC ABG pCO2 28.4 L POC ABG pO2 Sodium Potassium 6.1 H* Chloride 109.4 H Carbon Dioxide 18 L BUN 30 H Creatinine 2.1 H Glucose 126 H POC Glucose 204 H Calcium Phosphorus Albumin TSH Urine WBC (Auto) Urine Creatinine Crossmatch 07/11/16 07/11/16 07/11/16 17:27 17:55 21:42 WBC RBC Hgb Hct MCH RDW Plt Count Lymph % (Auto) [place] % (Auto) Lymph # [place] # Seg Neutrophils % Seg Neuts % (Manual) Lymphocytes % (Manual) Seg Neutrophils # Seg Neutrophils # Man Lymphocytes # (Manual) D-Dimer POC ABG pH POC ABG pCO2 POC ABG pO2 Sodium 146 H Potassium 6.5 H* Chloride 109.7 H Carbon Dioxide 20 L BUN 32 H Creatinine 2.4 H Glucose 167 H POC Glucose 433 H 142 H Calcium Phosphorus Albumin TSH Urine WBC (Auto) Urine Creatinine Crossmatch 07/12/16 07/12/16 07/12/16 04:34 04:34 05:22 WBC 14.0 H RBC Hgb Hct MCH 27 L RDW 17.6 H Plt Count 113 L Lymph % (Auto) [place] % (Auto) Lymph # [place] # Seg Neutrophils % Seg Neuts % (Manual) 87.0 H Lymphocytes % (Manual) 11.0 L Seg Neutrophils # Seg Neutrophils # Man 12.2 H Lymphocytes # (Manual) D-Dimer POC ABG pH 7.452 H POC ABG pCO2 29.6 L POC ABG pO2 Sodium Potassium 6.8 H* Chloride 110.2 H Carbon Dioxide 16 L BUN 43 H Creatinine 2.9 H Glucose 113 H POC Glucose Calcium Phosphorus Albumin TSH Urine WBC (Auto) Urine Creatinine Crossmatch 07/12/16 07/12/16 07/12/16 13:24 17:28 21:11 WBC RBC Hgb Hct MCH RDW Plt Count Lymph % (Auto) [place] % (Auto) Lymph # [place] # Seg Neutrophils % Seg Neuts % (Manual) Lymphocytes % (Manual) Seg Neutrophils # Seg Neutrophils # Man Lymphocytes # (Manual) D-Dimer POC ABG pH POC ABG pCO2 POC ABG pO2 Sodium 150 H Potassium Chloride 108.9 H Carbon Dioxide 21 L BUN 52 H Creatinine 3.7 H Glucose 143 H POC Glucose 148 H 134 H Calcium 8.0 L Phosphorus Albumin TSH Urine WBC (Auto) Urine Creatinine Crossmatch 07/12/16 07/13/16 07/13/16 21:50 04:40 04:40 WBC 14.0 H RBC 3.50 L Hgb 9.3 L Hct 29.3 L MCH 27 L RDW 17.3 H Plt Count Lymph % (Auto) 4.9 L [place] % (Auto) Lymph # 0.7 L [place] # Seg Neutrophils % 90.0 H Seg Neuts % (Manual) 93.0 H Lymphocytes % (Manual) 5.0 L Seg Neutrophils # 12.6 H Seg Neutrophils # Man 13.0 H Lymphocytes # (Manual) 0.7 L D-Dimer POC ABG pH POC ABG pCO2 POC ABG pO2 Sodium 151 H Potassium Chloride 109.3 H Carbon Dioxide BUN 59 H Creatinine 4.0 H Glucose 63 L POC Glucose 156 H Calcium 7.7 L Phosphorus Albumin TSH Urine WBC (Auto) Urine Creatinine Crossmatch 07/13/16 07/13/16 07/13/16 06:10 06:40 08:03 WBC RBC Hgb Hct MCH RDW Plt Count Lymph % (Auto) [place] % (Auto) Lymph # [place] # Seg Neutrophils % Seg Neuts % (Manual) Lymphocytes % (Manual) Seg Neutrophils # Seg Neutrophils # Man Lymphocytes # (Manual) D-Dimer POC ABG pH POC ABG pCO2 POC ABG pO2 Sodium Potassium Chloride Carbon Dioxide BUN Creatinine Glucose POC Glucose 68 L 176 H 141 H Calcium Phosphorus Albumin TSH Urine WBC (Auto) Urine Creatinine Crossmatch 07/13/16 07/13/16 07/13/16 09:17 12:30 14:15 WBC RBC Hgb Hct MCH RDW Plt Count Lymph % (Auto) [place] % (Auto) Lymph # [place] # Seg Neutrophils % Seg Neuts % (Manual) Lymphocytes % (Manual) Seg Neutrophils # Seg Neutrophils # Man Lymphocytes # (Manual) D-Dimer POC ABG pH 7.475 H 7.529 H POC ABG pCO2 33.4 L 26.8 L POC ABG pO2 110 H 70 L Sodium Potassium Chloride Carbon Dioxide BUN Creatinine Glucose POC Glucose 177 H Calcium Phosphorus Albumin TSH Urine WBC (Auto) Urine Creatinine Crossmatch 07/13/16 07/13/16 07/13/16 15:28 17:57 22:10 WBC RBC Hgb Hct MCH RDW Plt Count Lymph % (Auto) [place] % (Auto) Lymph # [place] # Seg Neutrophils % Seg Neuts % (Manual) Lymphocytes % (Manual) Seg Neutrophils # Seg Neutrophils # Man Lymphocytes # (Manual) D-Dimer POC ABG pH POC ABG pCO2 POC ABG pO2 Sodium Potassium Chloride Carbon Dioxide BUN Creatinine Glucose POC Glucose 122 H 166 H 197 H Calcium Phosphorus Albumin TSH Urine WBC (Auto) Urine Creatinine Crossmatch 07/14/16 07/14/16 07/14/16 02:00 04:21 04:21 WBC RBC 3.01 L Hgb 8.1 L Hct 25.3 L MCH 27 L RDW 17.9 H Plt Count Lymph % (Auto) 6.1 L [place] % (Auto) Lymph # 0.5 L [place] # Seg Neutrophils % 89.9 H Seg Neuts % (Manual) Lymphocytes % (Manual) Seg Neutrophils # Seg Neutrophils # Man Lymphocytes # (Manual) D-Dimer POC ABG pH POC ABG pCO2 POC ABG pO2 Sodium 150 H Potassium Chloride 107.3 H Carbon Dioxide 21 L BUN 82 H Creatinine 4.8 H Glucose 176 H POC Glucose 166 H Calcium 6.8 L Phosphorus Albumin TSH Urine WBC (Auto) Urine Creatinine Crossmatch 07/14/16 07/14/16 07/14/16 05:32 09:42 22:32 WBC RBC Hgb Hct MCH RDW Plt Count Lymph % (Auto) [place] % (Auto) Lymph # [place] # Seg Neutrophils % Seg Neuts % (Manual) Lymphocytes % (Manual) Seg Neutrophils # Seg Neutrophils # Man Lymphocytes # (Manual) D-Dimer POC ABG pH POC ABG pCO2 POC ABG pO2 Sodium Potassium Chloride Carbon Dioxide BUN Creatinine Glucose POC Glucose 202 H 216 H 191 H Calcium Phosphorus Albumin TSH Urine WBC (Auto) Urine Creatinine Crossmatch 07/15/16 07/15/16 07/15/16 04:46 04:56 04:56 WBC RBC 3.04 L Hgb 8.2 L Hct 25.8 L MCH 27 L RDW 17.3 H Plt Count Lymph % (Auto) 4.2 L [place] % (Auto) 11.8 H Lymph # 0.4 L [place] # 1.1 H Seg Neutrophils % 83.9 H Seg Neuts % (Manual) Lymphocytes % (Manual) Seg Neutrophils # Seg Neutrophils # Man Lymphocytes # (Manual) D-Dimer POC ABG pH POC ABG pCO2 POC ABG pO2 Sodium 147 H Potassium 3.4 L Chloride Carbon Dioxide 20 L BUN 109 H Creatinine 5.2 H Glucose 242 H POC Glucose 275 H Calcium 6.3 L Phosphorus Albumin TSH Urine WBC (Auto) Urine Creatinine Crossmatch 07/15/16 07/15/16 07/15/16 11:32 16:52 20:41 WBC RBC Hgb Hct MCH RDW Plt Count Lymph % (Auto) [place] % (Auto) Lymph # [place] # Seg Neutrophils % Seg Neuts % (Manual) Lymphocytes % (Manual) Seg Neutrophils # Seg Neutrophils # Man Lymphocytes # (Manual) D-Dimer POC ABG pH POC ABG pCO2 POC ABG pO2 Sodium Potassium Chloride Carbon Dioxide BUN Creatinine Glucose POC Glucose 250 H 195 H 219 H Calcium Phosphorus Albumin TSH Urine WBC (Auto) Urine Creatinine Crossmatch 07/16/16 07/16/16 07/16/16 00:37 05:47 09:54 WBC RBC 3.20 L Hgb 8.6 L Hct 27.3 L MCH 27 L RDW 17.1 H Plt Count Lymph % (Auto) 4.2 L [place] % (Auto) Lymph # 0.3 L [place] # Seg Neutrophils % 89.6 H Seg Neuts % (Manual) Lymphocytes % (Manual) Seg Neutrophils # Seg Neutrophils # Man Lymphocytes # (Manual) D-Dimer POC ABG pH POC ABG pCO2 POC ABG pO2 Sodium Potassium Chloride Carbon Dioxide BUN Creatinine Glucose POC Glucose 257 H 223 H Calcium Phosphorus Albumin TSH Urine WBC (Auto) Urine Creatinine Crossmatch 07/16/16 07/16/16 07/16/16 09:54 11:54 17:48 WBC RBC Hgb Hct MCH RDW Plt Count Lymph % (Auto) [place] % (Auto) Lymph # [place] # Seg Neutrophils % Seg Neuts % (Manual) Lymphocytes % (Manual) Seg Neutrophils # Seg Neutrophils # Man Lymphocytes # (Manual) D-Dimer POC ABG pH POC ABG pCO2 POC ABG pO2 Sodium 148 H Potassium Chloride Carbon Dioxide 21 L BUN 146 H Creatinine 6.0 H Glucose 249 H POC Glucose 294 H 195 H Calcium 6.4 L Phosphorus Albumin TSH Urine WBC (Auto) Urine Creatinine Crossmatch 07/16/16 07/16/16 07/17/16 21:54 23:53 05:53 WBC RBC Hgb Hct MCH RDW Plt Count Lymph % (Auto) [place] % (Auto) Lymph # [place] # Seg Neutrophils % Seg Neuts % (Manual) Lymphocytes % (Manual) Seg Neutrophils # Seg Neutrophils # Man Lymphocytes # (Manual) D-Dimer POC ABG pH POC ABG pCO2 POC ABG pO2 Sodium Potassium Chloride Carbon Dioxide BUN Creatinine Glucose POC Glucose 161 H 171 H 208 H Calcium Phosphorus Albumin TSH Urine WBC (Auto) Urine Creatinine Crossmatch 07/17/16 07/17/16 07/17/16 06:52 06:52 11:28 WBC RBC 3.17 L Hgb 8.6 L Hct 26.4 L MCH 27 L RDW 17.2 H Plt Count Lymph % (Auto) [place] % (Auto) Lymph # [place] # Seg Neutrophils % Seg Neuts % (Manual) 90.0 H Lymphocytes % (Manual) 8.0 L Seg Neutrophils # Seg Neutrophils # Man Lymphocytes # (Manual) 0.6 L D-Dimer POC ABG pH POC ABG pCO2 POC ABG pO2 Sodium Potassium Chloride Carbon Dioxide BUN 87 H Creatinine 4.2 H Glucose 231 H POC Glucose 255 H Calcium 6.2 L Phosphorus 5.2 H Albumin TSH Urine WBC (Auto) Urine Creatinine Crossmatch 07/17/16 07/17/16 07/18/16 16:22 23:41 05:06 WBC RBC 3.25 L Hgb 8.8 L Hct 27.2 L MCH 27 L RDW 17.0 H Plt Count Lymph % (Auto) [place] % (Auto) Lymph # [place] # Seg Neutrophils % Seg Neuts % (Manual) 80.0 H Lymphocytes % (Manual) 10.0 L Seg Neutrophils # Seg Neutrophils # Man Lymphocytes # (Manual) 0.9 L D-Dimer POC ABG pH POC ABG pCO2 POC ABG pO2 Sodium Potassium Chloride Carbon Dioxide BUN Creatinine Glucose POC Glucose 263 H 195 H Calcium Phosphorus Albumin TSH Urine WBC (Auto) Urine Creatinine Crossmatch 07/18/16 07/18/16 07/18/16 05:06 06:52 11:52 WBC RBC Hgb Hct MCH RDW Plt Count Lymph % (Auto) [place] % (Auto) Lymph # [place] # Seg Neutrophils % Seg Neuts % (Manual) Lymphocytes % (Manual) Seg Neutrophils # Seg Neutrophils # Man Lymphocytes # (Manual) D-Dimer POC ABG pH POC ABG pCO2 POC ABG pO2 Sodium Potassium Chloride 97.7 L Carbon Dioxide BUN 51 H Creatinine 2.8 H Glucose 252 H POC Glucose 289 H 242 H Calcium 6.4 L Phosphorus Albumin TSH Urine WBC (Auto) Urine Creatinine Crossmatch 07/18/16 07/18/16 07/19/16 16:36 21:34 05:50 WBC RBC Hgb Hct MCH RDW Plt Count Lymph % (Auto) [place] % (Auto) Lymph # [place] # Seg Neutrophils % Seg Neuts % (Manual) Lymphocytes % (Manual) Seg Neutrophils # Seg Neutrophils # Man Lymphocytes # (Manual) D-Dimer POC ABG pH POC ABG pCO2 POC ABG pO2 Sodium Potassium Chloride Carbon Dioxide BUN Creatinine Glucose POC Glucose 221 H 210 H 273 H Calcium Phosphorus Albumin TSH Urine WBC (Auto) Urine Creatinine Crossmatch 07/19/16 07/19/16 07/19/16 07:09 17:06 21:56 WBC RBC Hgb Hct MCH RDW Plt Count Lymph % (Auto) [place] % (Auto) Lymph # [place] # Seg Neutrophils % Seg Neuts % (Manual) Lymphocytes % (Manual) Seg Neutrophils # Seg Neutrophils # Man Lymphocytes # (Manual) D-Dimer POC ABG pH POC ABG pCO2 POC ABG pO2 Sodium Potassium Chloride 96.2 L Carbon Dioxide BUN 81 H Creatinine 4.9 H D Glucose 260 H POC Glucose 143 H 148 H Calcium 6.0 L Phosphorus Albumin TSH Urine WBC (Auto) Urine Creatinine Crossmatch 07/20/16 07/20/16 07/20/16 05:21 06:29 11:01 WBC RBC Hgb Hct MCH RDW Plt Count Lymph % (Auto) [place] % (Auto) Lymph # [place] # Seg Neutrophils % Seg Neuts % (Manual) Lymphocytes % (Manual) Seg Neutrophils # Seg Neutrophils # Man Lymphocytes # (Manual) D-Dimer POC ABG pH POC ABG pCO2 POC ABG pO2 Sodium 136 L Potassium 3.4 L Chloride 94.4 L Carbon Dioxide BUN 43 H Creatinine 3.5 H Glucose 263 H POC Glucose 299 H 281 H Calcium 6.5 L Phosphorus Albumin TSH Urine WBC (Auto) Urine Creatinine Crossmatch 07/20/16 07/20/16 07/21/16 17:07 22:54 06:24 WBC RBC Hgb Hct MCH RDW Plt Count Lymph % (Auto) [place] % (Auto) Lymph # [place] # Seg Neutrophils % Seg Neuts % (Manual) Lymphocytes % (Manual) Seg Neutrophils # Seg Neutrophils # Man Lymphocytes # (Manual) D-Dimer POC ABG pH POC ABG pCO2 POC ABG pO2 Sodium Potassium Chloride Carbon Dioxide BUN Creatinine Glucose POC Glucose 253 H 209 H 346 H Calcium Phosphorus Albumin TSH Urine WBC (Auto) Urine Creatinine Crossmatch 07/21/16 07/21/16 07/21/16 07:25 15:46 21:23 WBC RBC Hgb Hct MCH RDW Plt Count Lymph % (Auto) [place] % (Auto) Lymph # [place] # Seg Neutrophils % Seg Neuts % (Manual) Lymphocytes % (Manual) Seg Neutrophils # Seg Neutrophils # Man Lymphocytes # (Manual) D-Dimer POC ABG pH POC ABG pCO2 POC ABG pO2 Sodium 133 L Potassium Chloride 90.7 L Carbon Dioxide BUN 71 H Creatinine 4.8 H Glucose 289 H POC Glucose 112 H 218 H Calcium 6.2 L Phosphorus Albumin TSH Urine WBC (Auto) Urine Creatinine Crossmatch 07/22/16 07/22/16 07/22/16 06:28 11:49 16:37 WBC RBC Hgb Hct MCH RDW Plt Count Lymph % (Auto) [place] % (Auto) Lymph # [place] # Seg Neutrophils % Seg Neuts % (Manual) Lymphocytes % (Manual) Seg Neutrophils # Seg Neutrophils # Man Lymphocytes # (Manual) D-Dimer POC ABG pH POC ABG pCO2 POC ABG pO2 Sodium Potassium Chloride Carbon Dioxide BUN Creatinine Glucose POC Glucose 316 H 211 H 185 H Calcium Phosphorus Albumin TSH Urine WBC (Auto) Urine Creatinine Crossmatch 07/22/16 07/23/16 07/23/16 20:24 05:19 12:10 WBC RBC Hgb Hct MCH RDW Plt Count Lymph % (Auto) [place] % (Auto) Lymph # [place] # Seg Neutrophils % Seg Neuts % (Manual) Lymphocytes % (Manual) Seg Neutrophils # Seg Neutrophils # Man Lymphocytes # (Manual) D-Dimer POC ABG pH POC ABG pCO2 POC ABG pO2 Sodium Potassium Chloride Carbon Dioxide BUN Creatinine Glucose POC Glucose 213 H 319 H 261 H Calcium Phosphorus Albumin TSH Urine WBC (Auto) Urine Creatinine Crossmatch 07/23/16 07/23/16 07/24/16 15:49 20:58 05:29 WBC RBC Hgb Hct MCH RDW Plt Count Lymph % (Auto) [place] % (Auto) Lymph # [place] # Seg Neutrophils % Seg Neuts % (Manual) Lymphocytes % (Manual) Seg Neutrophils # Seg Neutrophils # Man Lymphocytes # (Manual) D-Dimer POC ABG pH POC ABG pCO2 POC ABG pO2 Sodium Potassium Chloride Carbon Dioxide BUN Creatinine Glucose POC Glucose 271 H 191 H 279 H Calcium Phosphorus Albumin TSH Urine WBC (Auto) Urine Creatinine Crossmatch 07/24/16 07/24/16 07/24/16 05:53 16:20 21:31 WBC RBC Hgb Hct MCH RDW Plt Count Lymph % (Auto) Chase % (Auto) Lymph # Chase # Seg Neutrophils % Seg Neuts % (Manual) Lymphocytes % (Manual) Seg Neutrophils # Seg Neutrophils # Man Lymphocytes # (Manual) D-Dimer POC ABG pH POC ABG pCO2 POC ABG pO2 Sodium Potassium Chloride Carbon Dioxide BUN 89 H Creatinine 5.3 H Glucose 273 H POC Glucose 161 H 136 H Calcium 6.2 L Phosphorus Albumin TSH Urine WBC (Auto) Urine Creatinine Crossmatch 07/25/16 07/25/16 07/25/16 06:25 11:56 16:10 WBC RBC Hgb Hct MCH RDW Plt Count Lymph % (Auto) Chase % (Auto) Lymph # Chase # Seg Neutrophils % Seg Neuts % (Manual) Lymphocytes % (Manual) Seg Neutrophils # Seg Neutrophils # Man Lymphocytes # (Manual) D-Dimer POC ABG pH POC ABG pCO2 POC ABG pO2 Sodium Potassium Chloride Carbon Dioxide BUN Creatinine Glucose POC Glucose 311 H 164 H 249 H Calcium Phosphorus Albumin TSH Urine WBC (Auto) Urine Creatinine Crossmatch 07/25/16 07/26/16 07/26/16 21:13 06:19 11:31 WBC RBC Hgb Hct MCH RDW Plt Count Lymph % (Auto) Chase % (Auto) Lymph # Chase # Seg Neutrophils % Seg Neuts % (Manual) Lymphocytes % (Manual) Seg Neutrophils # Seg Neutrophils # Man Lymphocytes # (Manual) D-Dimer POC ABG pH POC ABG pCO2 POC ABG pO2 Sodium Potassium Chloride Carbon Dioxide BUN Creatinine Glucose POC Glucose 194 H 280 H 191 H Calcium Phosphorus Albumin TSH Urine WBC (Auto) Urine Creatinine Crossmatch 07/26/16 07/26/16 07/26/16 12:50 12:50 13:02 WBC RBC 2.35 L Hgb 6.5 L Hct 20.0 L MCH RDW 18.4 H Plt Count 135 L Lymph % (Auto) 7.7 L [place] % (Auto) Lymph # 0.6 L Chase # Seg Neutrophils % 86.8 H Seg Neuts % (Manual) Lymphocytes % (Manual) Seg Neutrophils # Seg Neutrophils # Man Lymphocytes # (Manual) D-Dimer POC ABG pH 7.523 H POC ABG pCO2 31.3 L POC ABG pO2 Sodium Potassium Chloride Carbon Dioxide BUN 67 H Creatinine 4.9 H Glucose 139 H POC Glucose Calcium 6.1 L Phosphorus Albumin TSH Urine WBC (Auto) Urine Creatinine Crossmatch 07/26/16 07/26/16 07/26/16 15:10 16:11 23:25 WBC RBC Hgb Hct MCH RDW Plt Count Lymph % (Auto) [place] % (Auto) Lymph # [place] # Seg Neutrophils % Seg Neuts % (Manual) Lymphocytes % (Manual) Seg Neutrophils # Seg Neutrophils # Man Lymphocytes # (Manual) D-Dimer POC ABG pH POC ABG pCO2 POC ABG pO2 Sodium Potassium Chloride Carbon Dioxide BUN Creatinine Glucose POC Glucose 204 H 115 H Calcium Phosphorus Albumin TSH Urine WBC (Auto) Urine Creatinine Crossmatch See Detail 07/27/16 07/27/16 07/27/16 06:39 09:28 09:28 WBC RBC 3.30 L Hgb 9.4 L Hct 28.5 L D MCH RDW 16.5 H Plt Count 115 L Lymph % (Auto) [place] % (Auto) Lymph # [place] # Seg Neutrophils % 78.0 H Seg Neuts % (Manual) Lymphocytes % (Manual) Seg Neutrophils # 8.2 H Seg Neutrophils # Man Lymphocytes # (Manual) D-Dimer POC ABG pH POC ABG pCO2 POC ABG pO2 Sodium Potassium 2.6 L* D Chloride 97.7 L Carbon Dioxide BUN 36 H Creatinine 2.9 H Glucose 157 H POC Glucose 194 H Calcium 6.8 L Phosphorus Albumin TSH Urine WBC (Auto) Urine Creatinine Crossmatch 07/27/16 07/27/16 07/28/16 11:06 21:17 05:56 WBC RBC Hgb Hct MCH RDW Plt Count Lymph % (Auto) [place] % (Auto) Lymph # [place] # Seg Neutrophils % Seg Neuts % (Manual) Lymphocytes % (Manual) Seg Neutrophils # Seg Neutrophils # Man Lymphocytes # (Manual) D-Dimer POC ABG pH POC ABG pCO2 POC ABG pO2 Sodium Potassium 3.2 L D Chloride Carbon Dioxide BUN 46 H Creatinine 3.5 H Glucose 205 H POC Glucose 145 H 121 H Calcium 6.8 L Phosphorus Albumin TSH Urine WBC (Auto) Urine Creatinine Crossmatch 07/28/16 07/28/16 07/28/16 05:56 11:12 17:21 WBC RBC Hgb 9.1 L Hct 28.0 L MCH RDW Plt Count Lymph % (Auto) [place] % (Auto) Lymph # [place] # Seg Neutrophils % Seg Neuts % (Manual) Lymphocytes % (Manual) Seg Neutrophils # Seg Neutrophils # Man Lymphocytes # (Manual) D-Dimer POC ABG pH POC ABG pCO2 POC ABG pO2 Sodium Potassium Chloride Carbon Dioxide BUN Creatinine Glucose POC Glucose 125 H 157 H Calcium Phosphorus Albumin TSH Urine WBC (Auto) Urine Creatinine Crossmatch 07/28/16 21:46 WBC RBC Hgb Hct MCH RDW Plt Count Lymph % (Auto) [place] % (Auto) Lymph # [place] # Seg Neutrophils % Seg Neuts % (Manual) Lymphocytes % (Manual) Seg Neutrophils # Seg Neutrophils # Man Lymphocytes # (Manual) D-Dimer POC ABG pH POC ABG pCO2 POC ABG pO2 Sodium Potassium Chloride Carbon Dioxide BUN Creatinine Glucose POC Glucose 190 H Calcium Phosphorus Albumin TSH Urine WBC (Auto) Urine Creatinine Crossmatch
[2016-07-29] MEDS: NACL 0.9% 1000 ML 1,000 ML IV SCH (12:00)
--- NOTE | 2016-07-29 12:08 | Progress Note ---
Assessment and Plan She remains oliguric but dialysis dependent. Continue patient outpt dialysis placement per social service. Continue supportive [facility] MWF - Patient Problems (1) GABRIELA (acute kidney injury) Current Visit: Yes Status: Acute (2) Chronic renal insufficiency Current Visit: Yes Status: Acute (3) Chronic anemia Current Visit: Yes Status: Acute (4) Hypertension Current Visit: Yes Status: Acute (5) Hypokalemia Current Visit: Yes Status: Acute Plan to address problem: replete as indicated. Continue enteral feeding. Subjective Principal diagnosis: Acute Respiratory Failure; Angioedema Interval history: Seen in follow up for renal insufficiency. Objective - Vital Signs Vital signs: Vital Signs - 12hr 07/29/16 07/29/16 07/29/16 01:00 01:51 05:13 Temperature 99.7 F H Pulse Rate 86 Pulse Rate [ Left Radial] Pulse Rate [ 88 86 Right Radial] Respiratory 16 24 Rate Blood Pressure 134/64 Blood Pressure [Left Arm] Blood Pressure 98/49 [Right Arm] O2 Sat by Pulse Oximetry 07/29/16 08:40 Temperature 99.8 F H Pulse Rate Pulse Rate [ 87 Left Radial] Pulse Rate [ Right Radial] Respiratory 22 Rate Blood Pressure Blood Pressure 95/51 [Left Arm] Blood Pressure [Right Arm] O2 Sat by Pulse 100 Oximetry - General Appearance General appearance: well-developed, other (poorly responsive) EENT: PERRL, mucous membranes moist Neck: no JVD, supple Respiratory: Present: Clear to Ascultation, Decreased Breath Sounds Cardiology: regular, normal heart rate, S1S2 Gastrointestinal: normoactive bowel sounds Integumentary: no rash, warm and dry Neurologic: no focal deficit, upper extremity weakness, facial droop Musculoskeletal: decreased ROM - Lab 07/28/16 05:56 07/28/16 05:56 Most recent lab results Calcium 6.8 mg/dL (8.4-10.2) L 07/28/16 05:56 Phosphorus 5.2 mg/dL (2.5-4.5) H 07/17/16 06:52 Magnesium 1.9 mg/dL (1.7-2.3) 07/17/16 06:52 Urine Creatinine 36.6 mg/dL (0.1-20.0) H 07/06/16 01:18 Urine Sodium 28 mEq/L 07/06/16 01:18
[2016-07-29] MEDS: PEPCID PO SCH (14:54)
--- NOTE | 2016-07-29 14:58 | Progress Note ---
Assessment and Plan Assessment and plan: Severe hypokalemia * replaced and improved * cont to monitor * 2 days (the Severe microcytic anemia * s/p 2 units of PRBC * stool for occult blood positive, GI consulted * could be due to CKD Acute hypoxic respiratory failure * Resolved, s/p extubation, Off BiPAP * On oxygen support Angioedema with dysphagia * Patient is now extubated and doing well. * Repeat swallow study was unsuccessfull * GI following for PEG placement Urinary tract infection * Urine culture positive for Klebsiella * Treated with Rocephin, Acute renal failurevon CKD stage IV. * Etiology likely secondary to vasomotor nephropathy versus interstitial nephritis from initial treatment with Bactrim for UTI. * Patient is on hemodialysis, will need out pt HD set up Hyperkalemia. * improved after dialysis DM2 * Monitor blood glucose closely, SSI Toxic metabolic encephalopathy. * Continue to treat underlying causes. * Continue supportive care Hypothyroidism. * Continue Synthroid. Hypertension * Continue current antihypertensive and adjust medications as needed * Hydralazine when necessary Left upper extremity swelling. * Ultrasound showed SVT in the cephalic vein * conservative management History Interval history: Pt lying in bed, nonverbal, no reported nursing events. As per family request repeat swallow evaluation was unsuccessful. Pt high risk for aspiration. Pt unable to tolerate swallow evaluation. s/p perm cath placement, will need out patient HD set up. Had family meeting with daughter and she agreed for PEG tube placement. GI on board for PEG placement, stool is positive for occult blood. Patient denies any chest pain. Tolerating NG tube feeding. Hospitalist Physical - Physical exam Narrative exam: General appearance: Present: no acute distress, obese - EENT Eyes: Present: PERRL - Neck Neck: Present: supple - Respiratory Respiratory: bilateral: diminished - Cardiovascular Rhythm: regular Heart Sounds: Present: S1 & S2 - Extremities Extremity abnormal: edema Peripheral Pulses: within normal limits - Abdominal General gastrointestinal: soft, non-tender, non-distended, no hepatomegaly, no splenomegaly - Integumentary Integumentary: Present: clear, dry, decreased turgor - Psychiatric Psychiatric: no intact judgment & insight, no memory intact - Constitutional Vitals: Temp Pulse Resp BP Pulse Ox 99.8 F H 87 22 95/51 100 07/29/16 08:40 07/29/16 08:40 07/29/16 08:40 07/29/16 08:40 12/31/16 08:40 General appearance: Present: no acute distress, obese Results - Labs CBC & Chem 7: 07/28/16 05:56 07/28/16 05:56 Labs: Laboratory Last Values WBC 10.5 K/mm3 (4.5-11.0) 07/27/16 09:28 RBC 3.30 M/mm3 (3.65-5.03) L 07/27/16 09:28 Hgb 9.1 gm/dl (10.1-14.3) L 07/28/16 05:56 Hct 28.0 % (30.3-42.9) L 07/28/16 05:56 MCV 86 fl (79-97) 07/27/16 09:28 MCH 29 pg (28-32) 07/27/16 09:28 MCHC 33 % (30-34) 07/27/16 09:28 RDW 16.5 % (13.2-15.2) H 07/27/16 09:28 Plt Count 115 K/mm3 (140-440) L 07/27/16 09:28 Lymph % (Auto) 14.1 % (13.4-35.0) 07/27/16 09:28 [place] % (Auto) 6.5 % (0.0-7.3) 07/27/16 09:28 Eos % (Auto) 1.1 % (0.0-4.3) 07/27/16 09:28 Baso % (Auto) 0.3 % (0.0-1.8) 07/27/16 09:28 Lymph # 1.5 K/mm3 (1.2-5.4) 07/27/16 09:28 [place] # 0.7 K/mm3 (0.0-0.8) 07/27/16 09:28 Eos # 0.1 K/mm3 (0.0-0.4) 07/27/16 09:28 Baso # 0.0 K/mm3 (0.0-0.1) 07/27/16 09:28 Add Manual Diff Complete 07/18/16 05:06 Total Counted 100 07/18/16 05:06 Seg Neutrophils % 78.0 % (40.0-70.0) H 07/27/16 09:28 Seg Neuts % (Manual) 80.0 % (40.0-70.0) H 07/18/16 05:06 Band Neutrophils % 4.0 % 07/18/16 05:06 Lymphocytes % (Manual) 10.0 % (13.4-35.0) L 07/18/16 05:06 Reactive Lymphs % (Man) 0 % 07/18/16 05:06 Monocytes % (Manual) 6.0 % (0.0-7.3) 07/18/16 05:06 Eosinophils % (Manual) 0 % (0.0-4.3) 07/17/16 06:52 Basophils % (Manual) 0 % (0.0-1.8) 07/17/16 06:52 Metamyelocytes % 0 % 07/18/16 05:06 Myelocytes % 0 % 07/18/16 05:06 Promyelocytes % 0 % 07/18/16 05:06 Blast Cells % 0 % 07/18/16 05:06 Nucleated RBC % Not Reportable 07/18/16 05:06 Seg Neutrophils # 8.2 K/mm3 (1.8-7.7) H 07/27/16 09:28 Seg Neutrophils # Man 6.9 K/mm3 (1.8-7.7) 07/18/16 05:06 Band Neutrophils # 0.3 K/mm3 07/18/16 05:06 Lymphocytes # (Manual) 0.9 K/mm3 (1.2-5.4) L 07/18/16 05:06 Abs React Lymphs (Man) 0.0 K/mm3 07/18/16 05:06 Monocytes # (Manual) 0.5 K/mm3 (0.0-0.8) 07/18/16 05:06 Eosinophils # (Manual) 0.0 K/mm3 (0.0-0.4) 07/18/16 05:06 Basophils # (Manual) 0.0 K/mm3 (0.0-0.1) 07/18/16 05:06 Metamyelocytes # 0.0 K/mm3 07/18/16 05:06 Myelocytes # 0.0 K/mm3 07/18/16 05:06 Promyelocytes # 0.0 K/mm3 07/18/16 05:06 Blast Cells # 0.0 K/mm3 07/18/16 05:06 WBC Morphology Not Reportable 07/18/16 05:06 Hypersegmented Neuts Not Reportable 07/18/16 05:06 Hyposegmented Neuts Not Reportable 07/18/16 05:06 Hypogranular Neuts Not Reportable 07/18/16 05:06 Smudge Cells Not Reportable 07/18/16 05:06 Toxic Granulation Not Reportable 07/18/16 05:06 Toxic Vacuolation Not Reportable 07/18/16 05:06 Dohle Bodies Not Reportable 07/18/16 05:06 Pelger-Huet Anomaly Not Reportable 07/18/16 05:06 [place] Rods Not Reportable 07/18/16 05:06 Platelet Estimate Not Reportable 07/18/16 05:06 Clumped Platelets Not Reportable 07/18/16 05:06 Plt Clumps, EDTA Not Reportable 07/18/16 05:06 Large Platelets Not Reportable 07/18/16 05:06 Giant Platelets Not Reportable 07/18/16 05:06 Platelet Satelliting Not Reportable 07/18/16 05:06 Plt Morphology Comment Not Reportable 07/18/16 05:06 RBC Morphology Not Reportable 07/18/16 05:06 Dimorphic RBCs Not Reportable 07/18/16 05:06 Polychromasia Not Reportable 07/18/16 05:06 Hypochromasia Not Reportable 07/18/16 05:06 Poikilocytosis Not Reportable 07/18/16 05:06 Anisocytosis 1+ 07/18/16 05:06 Microcytosis Not Reportable 07/18/16 05:06 Macrocytosis Not Reportable 07/18/16 05:06 Spherocytes Not Reportable 07/18/16 05:06 Pappenheimer Bodies Not Reportable 07/18/16 05:06 Sickle Cells Not Reportable 07/18/16 05:06 Target Cells Not Reportable 07/18/16 05:06 Tear Drop Cells Not Reportable 07/18/16 05:06 Ovalocytes Not Reportable 07/18/16 05:06 Helmet Cells Not Reportable 07/18/16 05:06 P[place] Bodies Not Reportable 07/18/16 05:06 [place] Rings Not Reportable 07/18/16 05:06 [place] Cells Not Reportable 07/18/16 05:06 Bite Cells Not Reportable 07/18/16 05:06 Crenated Cell Not Reportable 07/18/16 05:06 Elliptocytes Few 07/18/16 05:06 Acanthocytes (Spur) Not Reportable 07/18/16 05:06 Rouleaux Not Reportable 07/18/16 05:06 Hemoglobin C Crystals Not Reportable 07/18/16 05:06 Schistocytes Not Reportable 07/18/16 05:06 Malaria parasites Not Reportable 07/18/16 05:06 Kaushik Bodies Not Reportable 07/18/16 05:06 Hem Pathologist Commnt No 07/18/16 05:06 PT 14.1 Sec. (12.2-14.9) 07/18/16 05:06 INR 1.10 (0.87-1.13) 07/18/16 05:06 APTT 34.8 Sec. (24.2-36.6) 07/18/16 05:06 D-Dimer 751.80 ng/mlDDU (0-234) H 07/11/16 12:22 POC ABG pH 7.523 (7.35-7.45) H 07/26/16 13:02 POC ABG pCO2 31.3 (35-45) L 07/26/16 13:02 POC ABG pO2 96 (80-105) 07/26/16 13:02 POC ABG HCO3 25.7 07/26/16 13:02 POC ABG Total CO2 27 07/26/16 13:02 POC ABG O2 Sat 98 07/26/16 13:02 POC ABG Base Excess 3 07/26/16 13:02 FiO2 21 % 07/26/16 13:02 Sodium 142 mmol/L (137-145) 07/28/16 05:56 Potassium 3.2 mmol/L (3.6-5.0) L D 07/28/16 05:56 Chloride 99.0 mmol/L (98-107) 07/28/16 05:56 Carbon Dioxide 27 mmol/L (22-30) 07/28/16 05:56 Anion Gap 19 mmol/L 07/28/16 05:56 BUN 46 mg/dL (7-17) H 07/28/16 05:56 Creatinine 3.5 mg/dL (0.7-1.2) H 07/28/16 05:56 Estimated GFR 16 ml/min 07/28/16 05:56 BUN/Creatinine Ratio 13.14 % 07/28/16 05:56 Glucose 205 mg/dL (65-100) H 07/28/16 05:56 POC Glucose 169 (70-105) H 07/29/16 12:10 Hemoglobin A1c 5.6 % (4-6) 07/15/16 04:56 Lactic Acid 0.8 mmol/L (0.7-2.0) 07/19/16 00:37 Calcium 6.8 mg/dL (8.4-10.2) L 07/28/16 05:56 Phosphorus 5.2 mg/dL (2.5-4.5) H 07/17/16 06:52 Magnesium 1.9 mg/dL (1.7-2.3) 07/17/16 06:52 Total Bilirubin < 0.2 mg/dL (0.1-1.2) 07/10/16 06:43 AST 17 units/L (5-40) 07/10/16 06:43 ALT 9 units/L (7-56) 07/10/16 06:43 Alkaline Phosphatase 62 units/L (35-129) 07/10/16 06:43 Total Creatine Kinase 131 units/L (30-135) 07/11/16 12:22 CK-MB (CK-2) 2.0 ng/mL (0.0-4.0) 07/11/16 12:22 CK-MB (CK-2) Rel Index 1.5 (0-4) 07/11/16 12:22 Troponin T < 0.010 ng/mL (0.00-0.029) 07/11/16 12:22 Total Protein 6.7 g/dL (6.3-8.2) 07/10/16 06:43 Albumin 3.5 g/dL (3.9-5) L 07/10/16 06:43 Albumin/Globulin Ratio 1.1 % 07/10/16 06:43 TSH 8.090 mlU/mL (0.270-4.200) H 07/05/16 05:08 Urine Color Straw (Yellow) 07/06/16 01:18 Urine Turbidity Clear (Clear) 07/06/16 01:18 Urine pH 6.0 (5.0-7.0) 07/06/16 01:18 Ur Specific [place] 1.003 (1.003-1.030) 07/06/16 01:18 Urine Protein <15 mg/dl mg/dL (Negative) 07/06/16 01:18 Urine Glucose (UA) Neg mg/dL (Negative) 07/06/16 01:18 Urine Ketones Neg mg/dL (Negative) 07/06/16 01:18 Urine Blood Neg (Negative) 07/06/16 01:18 Urine Nitrite Neg (Negative) 07/06/16 01:18 Urine Bilirubin Neg (Negative) 07/06/16 01:18 Urine Urobilinogen < 2.0 mg/dL (<2.0) 07/06/16 01:18 Ur Leukocyte Esterase Mod (Negative) 07/06/16 01:18 Urine WBC (Auto) 7.0 /HPF (0.0-6.0) H 07/06/16 01:18 Urine RBC (Auto) 3.0 /HPF (0.0-6.0) 07/06/16 01:18 U Epithel Cells (Auto) 1.0 /HPF (0-13.0) 06/30/16 11:34 Urine Bacteria (Auto) 1+ /HPF (Negative) 06/30/16 11:34 Urine Eosinophils None seen (None Seen) 07/06/16 01:18 Urine Creatinine 36.6 mg/dL (0.1-20.0) H 07/06/16 01:18 Urine Microalbumin 6.5 mg/dL (0.1-34.0) 07/06/16 01:18 Microalb/Creat Ratio 177.5 ug/mg 07/06/16 01:18 Urine Sodium 28 mEq/L 07/06/16 01:18 Urine Opiates Screen Presumptive negative 06/30/16 11:34 Urine Methadone Screen Presumptive negative 06/30/16 11:34 Acetaminophen < 15.0 ug/mL (10.0-30.0) 06/30/16 12:01 Ur Barbiturates Screen Presumptive negative 06/30/16 11:34 Ur Phencyclidine Scrn Presumptive negative 06/30/16 11:34 Ur Amphetamines Screen Presumptive negative 06/30/16 11:34 U Benzodiazepines Scrn Presumptive negative 06/30/16 11:34 Urine Cocaine Screen Presumptive negative 06/30/16 11:34 U Marijuana (THC) Screen Presumptive negative 06/30/16 11:34 Drugs of Abuse Note Disclamer 06/30/16 11:34 Plasma/Serum Alcohol < 0.01 gm% (0-0.07) 06/30/16 12:01 Hepatitis A IgM Ab -1 (NonReactive) 07/16/16 19:08 Hep Bs Antigen Non-reactive (Negative) 07/16/16 19:08 Hep B Core IgM Ab Non-reactive (NonReactive) 07/16/16 19:08 Hepatitis C Antibody Non-reactive (NonReactive) 07/16/16 19:08 Blood Type O POSITIVE 07/26/16 15:10 Antibody Screen Negative 07/26/16 15:10 Crossmatch See Detail 07/26/16 15:10
--- NOTE | 2016-07-29 20:48 | Gastroenterology Progress Note ---
Assessment and Plan 1. oropharyngeal dysphagia - likely neurologic, unable to complete swallow evaluation. family agreeable for PEG tube. Will plan for PEG tube placement on Sunday. 2. anemia - normocytic anemia, FOBT + on admission, no reported overt bleeding during hospitalization. likely multifactorial from renal disease, will order iron studies. unknown if pt has had prior colonoscopy or EGD. EGD will be done at time of PEG tube placement, discuss with family regarding any past colonoscopy. Subjective Date of service: 07/29/16 Principal diagnosis: Acute Respiratory Failure; Angioedema Interval history: pt non-verbal and unable to provide history. no reported events overnight. tolerating tube feeds. Objective - Exam Narrative Exam: Gen: obese, NAD, non-verbal HENT: + NG tube, nc/at Lungs: coarse bs, non labored Abd: soft, nt, nd, +bs Neuro: oriented x 0 - Constitutional Vitals: Temp Pulse Resp BP Pulse Ox 99.4 F 86 22 117/56 99 07/29/16 16:00 07/29/16 16:00 07/29/16 16:00 07/29/16 16:00 07/29/16 16:00 - Labs CBC & Chem 7: 07/28/16 05:56 07/28/16 05:56 Labs: Laboratory Results - last 24 hr 07/28/16 07/29/16 07/29/16 21:46 12:10 15:52 POC Glucose 190 H 169 H 145 H
[2016-07-30] MEDS: NOVOLOG SUB-Q SCH ×4 (00:31→15:00)
[2016-07-30 03:03] LABS: Iron 23 ug/dL (37-170); Total Iron Binding Capacity 142 mcg/dL (250-450)
[2016-07-30] MEDS: HEPARIN SUB-Q SCH ×2 (06:11→15:00)
[2016-07-30] MEDS: APRESOLINE FEEDTUBE SCH ×3 (06:11→21:26)
[2016-07-30] MEDS: SYNTHROID PO SCH (06:13)
[2016-07-30 06:30] LABS: Hematocrit 26.4 % (30.3-42.9); Hemoglobin 8.5 gm/dl (10.1-14.3)
[2016-07-30 06:47] LABS: BUN/Creatinine Ratio 11.42; Calcium 7.1 mg/dL (8.4-10.2); Chloride 103.6 mmol/L (98-107)
[2016-07-30 06:50] LABS: Potassium 4.1 mmol/L (3.6-5.0)
[2016-07-30] MEDS: NORMODYNE PO SCH ×3 (11:59→21:00)
[2016-07-30] MEDS: NEURONTIN PO SCH (12:00)
[2016-07-30] MEDS: PEPCID PO SCH (12:00)
--- NOTE | 2016-07-30 13:49 | Progress Note ---
Assessment and Plan - Patient Problems (1) Bipolar disorder Current Visit: No Status: Acute Qualifiers: Active/Remission status: remission status unspecified Most recent bipolar episode type: most recent episode unspecified type Plan to address problem: - no clinical exacerbation (2) Renal failure (ARF), acute on chronic Current Visit: No Status: Acute Plan to address problem: - HD/UF per nephrology (3) Malignant hypertension Current Visit: No Status: Chronic Plan to address problem: - resolved (4) Acute respiratory failure Current Visit: Yes Status: Resolved Plan to address problem: - continue supplemental oxygen to keep sats > 92% - aspiration precautions (5) Angioedema Current Visit: Yes Status: Acute Plan to address problem: - resolved Subjective Date of service: 07/30/16 Principal diagnosis: Acute Respiratory Failure; Angioedema Interval history: Seen and examined at bedside; 24 hour events reviewed; nursing and respiratory care staff consulted; no adverse overnight events reported to me; resting peacefully in bed; no new issues respiratory-[place] Objective Vital Signs - 12hr 07/30/16 07/30/16 05:06 07:11 Temperature 98.2 F 98.2 F Pulse Rate [ 69 70 Apical] Respiratory 18 16 Rate Blood Pressure 107/57 129/58 [Right Arm] O2 Sat by Pulse 100 96 Oximetry Constitutional: no acute distress, lethargic, other (does not localize to sternal rub) Eyes: non-icteric ENT: oropharynx moist Neck: supple, no lymphadenopathy Effort: normal Ascultation: Bilateral: clear, diminished breath sounds (bases) Cardiovascular: regular rate and rhythm Gastrointestinal: normoactive bowel sounds, soft, non-tender, non-distended Integumentary: normal Extremities: no cyanosis, no edema, pulses normal, no ischemia or petechiae Neurologic: non-focal exam (grossly), pupils equal and round, CN II-XII normal Psychiatric: other (somnolent) CBC and BMP: 07/30/16 05:38 07/30/16 05:38 ABG, PT/INR, D-dimer: ABG POC ABG pH 7.523 (7.35-7.45) H 07/26/16 13:02 POC ABG pCO2 31.3 (35-45) L 07/26/16 13:02 POC ABG pO2 96 (80-105) 07/26/16 13:02 POC ABG HCO3 25.7 07/26/16 13:02 POC ABG Total CO2 27 07/26/16 13:02 POC ABG O2 Sat 98 07/26/16 13:02 PT/INR, D-dimer PT 14.1 Sec. (12.2-14.9) 07/18/16 05:06 INR 1.10 (0.87-1.13) 07/18/16 05:06 D-Dimer 751.80 ng/mlDDU (0-234) H 07/11/16 12:22 Abnormal lab findings: Abnormal Labs 07/03/16 07/03/16 07/04/16 14:34 14:34 06:21 WBC 3.9 L RBC 3.16 L 3.04 L Hgb 8.5 L 8.0 L Hct 26.8 L 25.6 L MCH 27 L 26 L RDW 16.5 H 16.2 H Plt Count Lymph % (Auto) [place] % (Auto) 10.7 H 10.7 H Lymph # 1.0 L [place] # Seg Neutrophils % Seg Neuts % (Manual) Lymphocytes % (Manual) Seg Neutrophils # Seg Neutrophils # Man Lymphocytes # (Manual) D-Dimer POC ABG pH POC ABG pCO2 POC ABG pO2 Sodium Potassium Chloride 107.6 H Carbon Dioxide BUN 27 H Creatinine 2.6 H Glucose POC Glucose Calcium 8.0 L Phosphorus Iron TIBC Albumin TSH Urine WBC (Auto) Urine Creatinine Crossmatch 07/04/16 07/04/16 07/04/16 06:21 11:30 16:33 WBC RBC Hgb Hct MCH RDW Plt Count Lymph % (Auto) [place] % (Auto) Lymph # [place] # Seg Neutrophils % Seg Neuts % (Manual) Lymphocytes % (Manual) Seg Neutrophils # Seg Neutrophils # Man Lymphocytes # (Manual) D-Dimer POC ABG pH POC ABG pCO2 POC ABG pO2 Sodium Potassium Chloride 107.4 H Carbon Dioxide 21 L BUN 27 H Creatinine 2.7 H Glucose POC Glucose 110 H 106 H Calcium 7.8 L Phosphorus Iron TIBC Albumin TSH Urine WBC (Auto) Urine Creatinine Crossmatch 07/05/16 07/05/16 07/05/16 05:08 05:08 05:08 WBC 4.0 L RBC 2.87 L Hgb 7.7 L Hct 24.2 L MCH 27 L RDW 16.0 H Plt Count Lymph % (Auto) [place] % (Auto) Lymph # [place] # Seg Neutrophils % Seg Neuts % (Manual) Lymphocytes % (Manual) Seg Neutrophils # Seg Neutrophils # Man Lymphocytes # (Manual) D-Dimer POC ABG pH POC ABG pCO2 POC ABG pO2 Sodium Potassium Chloride Carbon Dioxide 21 L BUN 32 H Creatinine 3.7 H Glucose POC Glucose Calcium 7.8 L Phosphorus Iron TIBC Albumin TSH 8.090 H Urine WBC (Auto) Urine Creatinine Crossmatch 07/05/16 07/06/16 07/06/16 11:45 01:18 01:18 WBC RBC Hgb 8.3 L Hct 25.9 L MCH RDW Plt Count Lymph % (Auto) [place] % (Auto) Lymph # [place] # Seg Neutrophils % Seg Neuts % (Manual) Lymphocytes % (Manual) Seg Neutrophils # Seg Neutrophils # Man Lymphocytes # (Manual) D-Dimer POC ABG pH POC ABG pCO2 POC ABG pO2 Sodium Potassium Chloride Carbon Dioxide BUN Creatinine Glucose POC Glucose Calcium Phosphorus Iron TIBC Albumin TSH Urine WBC (Auto) 7.0 H Urine Creatinine 36.6 H Crossmatch 07/06/16 07/06/16 07/06/16 05:55 05:55 16:07 WBC 3.0 L RBC 2.79 L Hgb 7.5 L Hct 23.5 L MCH 27 L RDW 16.5 H Plt Count Lymph % (Auto) [place] % (Auto) Lymph # [place] # Seg Neutrophils % Seg Neuts % (Manual) Lymphocytes % (Manual) Seg Neutrophils # Seg Neutrophils # Man Lymphocytes # (Manual) D-Dimer POC ABG pH POC ABG pCO2 POC ABG pO2 Sodium Potassium Chloride 109.3 H Carbon Dioxide 20 L BUN 32 H Creatinine 3.4 H Glucose POC Glucose 117 H Calcium 7.5 L Phosphorus Iron TIBC Albumin TSH Urine WBC (Auto) Urine Creatinine Crossmatch 07/07/16 07/07/16 07/08/16 06:19 16:13 00:09 WBC RBC Hgb Hct MCH RDW Plt Count Lymph % (Auto) [place] % (Auto) Lymph # [place] # Seg Neutrophils % Seg Neuts % (Manual) Lymphocytes % (Manual) Seg Neutrophils # Seg Neutrophils # Man Lymphocytes # (Manual) D-Dimer POC ABG pH POC ABG pCO2 POC ABG pO2 Sodium Potassium Chloride 111.1 H Carbon Dioxide 20 L BUN 31 H Creatinine 3.1 H Glucose POC Glucose 108 H 134 H Calcium 8.0 L Phosphorus Iron TIBC Albumin TSH Urine WBC (Auto) Urine Creatinine Crossmatch 07/08/16 07/08/16 07/08/16 11:39 16:31 21:22 WBC RBC Hgb Hct MCH RDW Plt Count Lymph % (Auto) [place] % (Auto) Lymph # [place] # Seg Neutrophils % Seg Neuts % (Manual) Lymphocytes % (Manual) Seg Neutrophils # Seg Neutrophils # Man Lymphocytes # (Manual) D-Dimer POC ABG pH POC ABG pCO2 POC ABG pO2 Sodium Potassium Chloride Carbon Dioxide BUN Creatinine Glucose POC Glucose 119 H 130 H 152 H Calcium Phosphorus Iron TIBC Albumin TSH Urine WBC (Auto) Urine Creatinine Crossmatch 07/09/16 07/09/16 07/09/16 05:52 05:52 06:02 WBC RBC 3.55 L Hgb 9.4 L Hct MCH 27 L RDW 17.1 H Plt Count Lymph % (Auto) [place] % (Auto) Lymph # [place] # Seg Neutrophils % Seg Neuts % (Manual) Lymphocytes % (Manual) Seg Neutrophils # Seg Neutrophils # Man Lymphocytes # (Manual) D-Dimer POC ABG pH POC ABG pCO2 POC ABG pO2 Sodium 147 H Potassium 5.4 H Chloride 112.8 H Carbon Dioxide 21 L BUN 30 H Creatinine 2.5 H Glucose 21 L* POC Glucose < 40 L Calcium Phosphorus Iron TIBC Albumin TSH Urine WBC (Auto) Urine Creatinine Crossmatch 07/09/16 07/09/16 07/10/16 11:31 16:50 05:23 WBC RBC Hgb Hct MCH RDW Plt Count Lymph % (Auto) [place] % (Auto) Lymph # [place] # Seg Neutrophils % Seg Neuts % (Manual) Lymphocytes % (Manual) Seg Neutrophils # Seg Neutrophils # Man Lymphocytes # (Manual) D-Dimer POC ABG pH POC ABG pCO2 POC ABG pO2 Sodium Potassium Chloride Carbon Dioxide BUN Creatinine Glucose POC Glucose 114 H 149 H < 40 L Calcium Phosphorus Iron TIBC Albumin TSH Urine WBC (Auto) Urine Creatinine Crossmatch 07/10/16 07/10/16 07/10/16 06:03 06:43 06:43 WBC RBC 2.90 L Hgb 7.7 L Hct 25.0 L MCH 27 L RDW 17.0 H Plt Count Lymph % (Auto) [place] % (Auto) 10.4 H Lymph # 1.1 L [place] # Seg Neutrophils % Seg Neuts % (Manual) Lymphocytes % (Manual) Seg Neutrophils # Seg Neutrophils # Man Lymphocytes # (Manual) D-Dimer POC ABG pH POC ABG pCO2 POC ABG pO2 Sodium 148 H Potassium 5.1 H Chloride 111.7 H Carbon Dioxide 20 L BUN 31 H Creatinine 2.4 H Glucose POC Glucose 211 H Calcium 8.0 L Phosphorus Iron TIBC Albumin 3.5 L TSH Urine WBC (Auto) Urine Creatinine Crossmatch 07/10/16 07/11/16 07/11/16 14:55 05:37 05:47 WBC RBC Hgb 7.9 L Hct 25.5 L MCH RDW Plt Count Lymph % (Auto) [place] % (Auto) Lymph # [place] # Seg Neutrophils % Seg Neuts % (Manual) Lymphocytes % (Manual) Seg Neutrophils # Seg Neutrophils # Man Lymphocytes # (Manual) D-Dimer POC ABG pH POC ABG pCO2 POC ABG pO2 Sodium Potassium Chloride Carbon Dioxide BUN Creatinine Glucose POC Glucose < 40 L > 500 H Calcium Phosphorus Iron TIBC Albumin TSH Urine WBC (Auto) Urine Creatinine Crossmatch 07/11/16 07/11/16 07/11/16 05:56 07:42 07:48 WBC RBC Hgb Hct MCH RDW Plt Count Lymph % (Auto) [place] % (Auto) Lymph # [place] # Seg Neutrophils % Seg Neuts % (Manual) Lymphocytes % (Manual) Seg Neutrophils # Seg Neutrophils # Man Lymphocytes # (Manual) D-Dimer POC ABG pH POC ABG pCO2 POC ABG pO2 Sodium Potassium Chloride Carbon Dioxide BUN Creatinine Glucose POC Glucose 262 H 56 L 54 L Calcium Phosphorus Iron TIBC Albumin TSH Urine WBC (Auto) Urine Creatinine Crossmatch 07/11/16 07/11/16 07/11/16 08:34 08:50 09:53 WBC RBC Hgb Hct MCH RDW Plt Count Lymph % (Auto) [place] % (Auto) Lymph # [place] # Seg Neutrophils % Seg Neuts % (Manual) Lymphocytes % (Manual) Seg Neutrophils # Seg Neutrophils # Man Lymphocytes # (Manual) D-Dimer POC ABG pH POC ABG pCO2 31.1 L POC ABG pO2 108 H Sodium Potassium Chloride Carbon Dioxide BUN Creatinine Glucose POC Glucose 110 H 68 L Calcium Phosphorus Iron TIBC Albumin TSH Urine WBC (Auto) Urine Creatinine Crossmatch 07/11/16 07/11/16 07/11/16 11:48 12:22 12:22 WBC 11.6 H RBC Hgb Hct MCH 27 L RDW 17.2 H Plt Count Lymph % (Auto) [place] % (Auto) Lymph # [place] # Seg Neutrophils % Seg Neuts % (Manual) 91.0 H Lymphocytes % (Manual) 5.0 L Seg Neutrophils # 10.8 H Seg Neutrophils # Man 10.6 H Lymphocytes # (Manual) 0.6 L D-Dimer 751.80 H POC ABG pH POC ABG pCO2 POC ABG pO2 Sodium Potassium Chloride Carbon Dioxide BUN Creatinine Glucose POC Glucose 118 H Calcium Phosphorus Iron TIBC Albumin TSH Urine WBC (Auto) Urine Creatinine Crossmatch 07/11/16 07/11/16 07/11/16 12:22 12:29 15:23 WBC RBC Hgb Hct MCH RDW Plt Count Lymph % (Auto) [place] % (Auto) Lymph # [place] # Seg Neutrophils % Seg Neuts % (Manual) Lymphocytes % (Manual) Seg Neutrophils # Seg Neutrophils # Man Lymphocytes # (Manual) D-Dimer POC ABG pH POC ABG pCO2 28.4 L POC ABG pO2 Sodium Potassium 6.1 H* Chloride 109.4 H Carbon Dioxide 18 L BUN 30 H Creatinine 2.1 H Glucose 126 H POC Glucose 204 H Calcium Phosphorus Iron TIBC Albumin TSH Urine WBC (Auto) Urine Creatinine Crossmatch 07/11/16 07/11/16 07/11/16 17:27 17:55 21:42 WBC RBC Hgb Hct MCH RDW Plt Count Lymph % (Auto) [place] % (Auto) Lymph # [place] # Seg Neutrophils % Seg Neuts % (Manual) Lymphocytes % (Manual) Seg Neutrophils # Seg Neutrophils # Man Lymphocytes # (Manual) D-Dimer POC ABG pH POC ABG pCO2 POC ABG pO2 Sodium 146 H Potassium 6.5 H* Chloride 109.7 H Carbon Dioxide 20 L BUN 32 H Creatinine 2.4 H Glucose 167 H POC Glucose 433 H 142 H Calcium Phosphorus Iron TIBC Albumin TSH Urine WBC (Auto) Urine Creatinine Crossmatch 07/12/16 07/12/16 07/12/16 04:34 04:34 05:22 WBC 14.0 H RBC Hgb Hct MCH 27 L RDW 17.6 H Plt Count 113 L Lymph % (Auto) [place] % (Auto) Lymph # [place] # Seg Neutrophils % Seg Neuts % (Manual) 87.0 H Lymphocytes % (Manual) 11.0 L Seg Neutrophils # Seg Neutrophils # Man 12.2 H Lymphocytes # (Manual) D-Dimer POC ABG pH 7.452 H POC ABG pCO2 29.6 L POC ABG pO2 Sodium Potassium 6.8 H* Chloride 110.2 H Carbon Dioxide 16 L BUN 43 H Creatinine 2.9 H Glucose 113 H POC Glucose Calcium Phosphorus Iron TIBC Albumin TSH Urine WBC (Auto) Urine Creatinine Crossmatch 07/12/16 07/12/16 07/12/16 13:24 17:28 21:11 WBC RBC Hgb Hct MCH RDW Plt Count Lymph % (Auto) [place] % (Auto) Lymph # [place] # Seg Neutrophils % Seg Neuts % (Manual) Lymphocytes % (Manual) Seg Neutrophils # Seg Neutrophils # Man Lymphocytes # (Manual) D-Dimer POC ABG pH POC ABG pCO2 POC ABG pO2 Sodium 150 H Potassium Chloride 108.9 H Carbon Dioxide 21 L BUN 52 H Creatinine 3.7 H Glucose 143 H POC Glucose 148 H 134 H Calcium 8.0 L Phosphorus Iron TIBC Albumin TSH Urine WBC (Auto) Urine Creatinine Crossmatch 07/12/16 07/13/16 07/13/16 21:50 04:40 04:40 WBC 14.0 H RBC 3.50 L Hgb 9.3 L Hct 29.3 L MCH 27 L RDW 17.3 H Plt Count Lymph % (Auto) 4.9 L [place] % (Auto) Lymph # 0.7 L [place] # Seg Neutrophils % 90.0 H Seg Neuts % (Manual) 93.0 H Lymphocytes % (Manual) 5.0 L Seg Neutrophils # 12.6 H Seg Neutrophils # Man 13.0 H Lymphocytes # (Manual) 0.7 L D-Dimer POC ABG pH POC ABG pCO2 POC ABG pO2 Sodium 151 H Potassium Chloride 109.3 H Carbon Dioxide BUN 59 H Creatinine 4.0 H Glucose 63 L POC Glucose 156 H Calcium 7.7 L Phosphorus Iron TIBC Albumin TSH Urine WBC (Auto) Urine Creatinine Crossmatch 07/13/16 07/13/16 07/13/16 06:10 06:40 08:03 WBC RBC Hgb Hct MCH RDW Plt Count Lymph % (Auto) [place] % (Auto) Lymph # [place] # Seg Neutrophils % Seg Neuts % (Manual) Lymphocytes % (Manual) Seg Neutrophils # Seg Neutrophils # Man Lymphocytes # (Manual) D-Dimer POC ABG pH POC ABG pCO2 POC ABG pO2 Sodium Potassium Chloride Carbon Dioxide BUN Creatinine Glucose POC Glucose 68 L 176 H 141 H Calcium Phosphorus Iron TIBC Albumin TSH Urine WBC (Auto) Urine Creatinine Crossmatch 07/13/16 07/13/16 07/13/16 09:17 12:30 14:15 WBC RBC Hgb Hct MCH RDW Plt Count Lymph % (Auto) [place] % (Auto) Lymph # [place] # Seg Neutrophils % Seg Neuts % (Manual) Lymphocytes % (Manual) Seg Neutrophils # Seg Neutrophils # Man Lymphocytes # (Manual) D-Dimer POC ABG pH 7.475 H 7.529 H POC ABG pCO2 33.4 L 26.8 L POC ABG pO2 110 H 70 L Sodium Potassium Chloride Carbon Dioxide BUN Creatinine Glucose POC Glucose 177 H Calcium Phosphorus Iron TIBC Albumin TSH Urine WBC (Auto) Urine Creatinine Crossmatch 07/13/16 07/13/16 07/13/16 15:28 17:57 22:10 WBC RBC Hgb Hct MCH RDW Plt Count Lymph % (Auto) [place] % (Auto) Lymph # [place] # Seg Neutrophils % Seg Neuts % (Manual) Lymphocytes % (Manual) Seg Neutrophils # Seg Neutrophils # Man Lymphocytes # (Manual) D-Dimer POC ABG pH POC ABG pCO2 POC ABG pO2 Sodium Potassium Chloride Carbon Dioxide BUN Creatinine Glucose POC Glucose 122 H 166 H 197 H Calcium Phosphorus Iron TIBC Albumin TSH Urine WBC (Auto) Urine Creatinine Crossmatch 07/14/16 07/14/16 07/14/16 02:00 04:21 04:21 WBC RBC 3.01 L Hgb 8.1 L Hct 25.3 L MCH 27 L RDW 17.9 H Plt Count Lymph % (Auto) 6.1 L [place] % (Auto) Lymph # 0.5 L [place] # Seg Neutrophils % 89.9 H Seg Neuts % (Manual) Lymphocytes % (Manual) Seg Neutrophils # Seg Neutrophils # Man Lymphocytes # (Manual) D-Dimer POC ABG pH POC ABG pCO2 POC ABG pO2 Sodium 150 H Potassium Chloride 107.3 H Carbon Dioxide 21 L BUN 82 H Creatinine 4.8 H Glucose 176 H POC Glucose 166 H Calcium 6.8 L Phosphorus Iron TIBC Albumin TSH Urine WBC (Auto) Urine Creatinine Crossmatch 07/14/16 07/14/16 07/14/16 05:32 09:42 22:32 WBC RBC Hgb Hct MCH RDW Plt Count Lymph % (Auto) [place] % (Auto) Lymph # [place] # Seg Neutrophils % Seg Neuts % (Manual) Lymphocytes % (Manual) Seg Neutrophils # Seg Neutrophils # Man Lymphocytes # (Manual) D-Dimer POC ABG pH POC ABG pCO2 POC ABG pO2 Sodium Potassium Chloride Carbon Dioxide BUN Creatinine Glucose POC Glucose 202 H 216 H 191 H Calcium Phosphorus Iron TIBC Albumin TSH Urine WBC (Auto) Urine Creatinine Crossmatch 07/15/16 07/15/16 07/15/16 04:46 04:56 04:56 WBC RBC 3.04 L Hgb 8.2 L Hct 25.8 L MCH 27 L RDW 17.3 H Plt Count Lymph % (Auto) 4.2 L [place] % (Auto) 11.8 H Lymph # 0.4 L [place] # 1.1 H Seg Neutrophils % 83.9 H Seg Neuts % (Manual) Lymphocytes % (Manual) Seg Neutrophils # Seg Neutrophils # Man Lymphocytes # (Manual) D-Dimer POC ABG pH POC ABG pCO2 POC ABG pO2 Sodium 147 H Potassium 3.4 L Chloride Carbon Dioxide 20 L BUN 109 H Creatinine 5.2 H Glucose 242 H POC Glucose 275 H Calcium 6.3 L Phosphorus Iron TIBC Albumin TSH Urine WBC (Auto) Urine Creatinine Crossmatch 07/15/16 07/15/16 07/15/16 11:32 16:52 20:41 WBC RBC Hgb Hct MCH RDW Plt Count Lymph % (Auto) [place] % (Auto) Lymph # [place] # Seg Neutrophils % Seg Neuts % (Manual) Lymphocytes % (Manual) Seg Neutrophils # Seg Neutrophils # Man Lymphocytes # (Manual) D-Dimer POC ABG pH POC ABG pCO2 POC ABG pO2 Sodium Potassium Chloride Carbon Dioxide BUN Creatinine Glucose POC Glucose 250 H 195 H 219 H Calcium Phosphorus Iron TIBC Albumin TSH Urine WBC (Auto) Urine Creatinine Crossmatch 07/16/16 07/16/16 07/16/16 00:37 05:47 09:54 WBC RBC 3.20 L Hgb 8.6 L Hct 27.3 L MCH 27 L RDW 17.1 H Plt Count Lymph % (Auto) 4.2 L [place] % (Auto) Lymph # 0.3 L [place] # Seg Neutrophils % 89.6 H Seg Neuts % (Manual) Lymphocytes % (Manual) Seg Neutrophils # Seg Neutrophils # Man Lymphocytes # (Manual) D-Dimer POC ABG pH POC ABG pCO2 POC ABG pO2 Sodium Potassium Chloride Carbon Dioxide BUN Creatinine Glucose POC Glucose 257 H 223 H Calcium Phosphorus Iron TIBC Albumin TSH Urine WBC (Auto) Urine Creatinine Crossmatch 07/16/16 07/16/16 07/16/16 09:54 11:54 17:48 WBC RBC Hgb Hct MCH RDW Plt Count Lymph % (Auto) [place] % (Auto) Lymph # [place] # Seg Neutrophils % Seg Neuts % (Manual) Lymphocytes % (Manual) Seg Neutrophils # Seg Neutrophils # Man Lymphocytes # (Manual) D-Dimer POC ABG pH POC ABG pCO2 POC ABG pO2 Sodium 148 H Potassium Chloride Carbon Dioxide 21 L BUN 146 H Creatinine 6.0 H Glucose 249 H POC Glucose 294 H 195 H Calcium 6.4 L Phosphorus Iron TIBC Albumin TSH Urine WBC (Auto) Urine Creatinine Crossmatch 07/16/16 07/16/16 07/17/16 21:54 23:53 05:53 WBC RBC Hgb Hct MCH RDW Plt Count Lymph % (Auto) [place] % (Auto) Lymph # [place] # Seg Neutrophils % Seg Neuts % (Manual) Lymphocytes % (Manual) Seg Neutrophils # Seg Neutrophils # Man Lymphocytes # (Manual) D-Dimer POC ABG pH POC ABG pCO2 POC ABG pO2 Sodium Potassium Chloride Carbon Dioxide BUN Creatinine Glucose POC Glucose 161 H 171 H 208 H Calcium Phosphorus Iron TIBC Albumin TSH Urine WBC (Auto) Urine Creatinine Crossmatch 07/17/16 07/17/16 07/17/16 06:52 06:52 11:28 WBC RBC 3.17 L Hgb 8.6 L Hct 26.4 L MCH 27 L RDW 17.2 H Plt Count Lymph % (Auto) [place] % (Auto) Lymph # [place] # Seg Neutrophils % Seg Neuts % (Manual) 90.0 H Lymphocytes % (Manual) 8.0 L Seg Neutrophils # Seg Neutrophils # Man Lymphocytes # (Manual) 0.6 L D-Dimer POC ABG pH POC ABG pCO2 POC ABG pO2 Sodium Potassium Chloride Carbon Dioxide BUN 87 H Creatinine 4.2 H Glucose 231 H POC Glucose 255 H Calcium 6.2 L Phosphorus 5.2 H Iron TIBC Albumin TSH Urine WBC (Auto) Urine Creatinine Crossmatch 07/17/16 07/17/16 07/18/16 16:22 23:41 05:06 WBC RBC 3.25 L Hgb 8.8 L Hct 27.2 L MCH 27 L RDW 17.0 H Plt Count Lymph % (Auto) [place] % (Auto) Lymph # [place] # Seg Neutrophils % Seg Neuts % (Manual) 80.0 H Lymphocytes % (Manual) 10.0 L Seg Neutrophils # Seg Neutrophils # Man Lymphocytes # (Manual) 0.9 L D-Dimer POC ABG pH POC ABG pCO2 POC ABG pO2 Sodium Potassium Chloride Carbon Dioxide BUN Creatinine Glucose POC Glucose 263 H 195 H Calcium Phosphorus Iron TIBC Albumin TSH Urine WBC (Auto) Urine Creatinine Crossmatch 07/18/16 07/18/16 07/18/16 05:06 06:52 11:52 WBC RBC Hgb Hct MCH RDW Plt Count Lymph % (Auto) [place] % (Auto) Lymph # [place] # Seg Neutrophils % Seg Neuts % (Manual) Lymphocytes % (Manual) Seg Neutrophils # Seg Neutrophils # Man Lymphocytes # (Manual) D-Dimer POC ABG pH POC ABG pCO2 POC ABG pO2 Sodium Potassium Chloride 97.7 L Carbon Dioxide BUN 51 H Creatinine 2.8 H Glucose 252 H POC Glucose 289 H 242 H Calcium 6.4 L Phosphorus Iron TIBC Albumin TSH Urine WBC (Auto) Urine Creatinine Crossmatch 07/18/16 07/18/16 07/19/16 16:36 21:34 05:50 WBC RBC Hgb Hct MCH RDW Plt Count Lymph % (Auto) [place] % (Auto) Lymph # [place] # Seg Neutrophils % Seg Neuts % (Manual) Lymphocytes % (Manual) Seg Neutrophils # Seg Neutrophils # Man Lymphocytes # (Manual) D-Dimer POC ABG pH POC ABG pCO2 POC ABG pO2 Sodium Potassium Chloride Carbon Dioxide BUN Creatinine Glucose POC Glucose 221 H 210 H 273 H Calcium Phosphorus Iron TIBC Albumin TSH Urine WBC (Auto) Urine Creatinine Crossmatch 07/19/16 07/19/16 07/19/16 07:09 17:06 21:56 WBC RBC Hgb Hct MCH RDW Plt Count Lymph % (Auto) [place] % (Auto) Lymph # [place] # Seg Neutrophils % Seg Neuts % (Manual) Lymphocytes % (Manual) Seg Neutrophils # Seg Neutrophils # Man Lymphocytes # (Manual) D-Dimer POC ABG pH POC ABG pCO2 POC ABG pO2 Sodium Potassium Chloride 96.2 L Carbon Dioxide BUN 81 H Creatinine 4.9 H D Glucose 260 H POC Glucose 143 H 148 H Calcium 6.0 L Phosphorus Iron TIBC Albumin TSH Urine WBC (Auto) Urine Creatinine Crossmatch 07/20/16 07/20/16 07/20/16 05:21 06:29 11:01 WBC RBC Hgb Hct MCH RDW Plt Count Lymph % (Auto) [place] % (Auto) Lymph # [place] # Seg Neutrophils % Seg Neuts % (Manual) Lymphocytes % (Manual) Seg Neutrophils # Seg Neutrophils # Man Lymphocytes # (Manual) D-Dimer POC ABG pH POC ABG pCO2 POC ABG pO2 Sodium 136 L Potassium 3.4 L Chloride 94.4 L Carbon Dioxide BUN 43 H Creatinine 3.5 H Glucose 263 H POC Glucose 299 H 281 H Calcium 6.5 L Phosphorus Iron TIBC Albumin TSH Urine WBC (Auto) Urine Creatinine Crossmatch 07/20/16 07/20/16 07/21/16 17:07 22:54 06:24 WBC RBC Hgb Hct MCH RDW Plt Count Lymph % (Auto) [place] % (Auto) Lymph # [place] # Seg Neutrophils % Seg Neuts % (Manual) Lymphocytes % (Manual) Seg Neutrophils # Seg Neutrophils # Man Lymphocytes # (Manual) D-Dimer POC ABG pH POC ABG pCO2 POC ABG pO2 Sodium Potassium Chloride Carbon Dioxide BUN Creatinine Glucose POC Glucose 253 H 209 H 346 H Calcium Phosphorus Iron TIBC Albumin TSH Urine WBC (Auto) Urine Creatinine Crossmatch 07/21/16 07/21/16 07/21/16 07:25 15:46 21:23 WBC RBC Hgb Hct MCH RDW Plt Count Lymph % (Auto) [place] % (Auto) Lymph # [place] # Seg Neutrophils % Seg Neuts % (Manual) Lymphocytes % (Manual) Seg Neutrophils # Seg Neutrophils # Man Lymphocytes # (Manual) D-Dimer POC ABG pH POC ABG pCO2 POC ABG pO2 Sodium 133 L Potassium Chloride 90.7 L Carbon Dioxide BUN 71 H Creatinine 4.8 H Glucose 289 H POC Glucose 112 H 218 H Calcium 6.2 L Phosphorus Iron TIBC Albumin TSH Urine WBC (Auto) Urine Creatinine Crossmatch 07/22/16 07/22/16 07/22/16 06:28 11:49 16:37 WBC RBC Hgb Hct MCH RDW Plt Count Lymph % (Auto) [place] % (Auto) Lymph # [place] # Seg Neutrophils % Seg Neuts % (Manual) Lymphocytes % (Manual) Seg Neutrophils # Seg Neutrophils # Man Lymphocytes # (Manual) D-Dimer POC ABG pH POC ABG pCO2 POC ABG pO2 Sodium Potassium Chloride Carbon Dioxide BUN Creatinine Glucose POC Glucose 316 H 211 H 185 H Calcium Phosphorus Iron TIBC Albumin TSH Urine WBC (Auto) Urine Creatinine Crossmatch 07/22/16 07/23/16 07/23/16 20:24 05:19 12:10 WBC RBC Hgb Hct MCH RDW Plt Count Lymph % (Auto) [place] % (Auto) Lymph # [place] # Seg Neutrophils % Seg Neuts % (Manual) Lymphocytes % (Manual) Seg Neutrophils # Seg Neutrophils # Man Lymphocytes # (Manual) D-Dimer POC ABG pH POC ABG pCO2 POC ABG pO2 Sodium Potassium Chloride Carbon Dioxide BUN Creatinine Glucose POC Glucose 213 H 319 H 261 H Calcium Phosphorus Iron TIBC Albumin TSH Urine WBC (Auto) Urine Creatinine Crossmatch 07/23/16 07/23/16 07/24/16 15:49 20:58 05:29 WBC RBC Hgb Hct MCH RDW Plt Count Lymph % (Auto) [place] % (Auto) Lymph # [place] # Seg Neutrophils % Seg Neuts % (Manual) Lymphocytes % (Manual) Seg Neutrophils # Seg Neutrophils # Man Lymphocytes # (Manual) D-Dimer POC ABG pH POC ABG pCO2 POC ABG pO2 Sodium Potassium Chloride Carbon Dioxide BUN Creatinine Glucose POC Glucose 271 H 191 H 279 H Calcium Phosphorus Iron TIBC Albumin TSH Urine WBC (Auto) Urine Creatinine Crossmatch 07/24/16 07/24/16 07/24/16 05:53 16:20 21:31 WBC RBC Hgb Hct MCH RDW Plt Count Lymph % (Auto) [place] % (Auto) Lymph # [place] # Seg Neutrophils % Seg Neuts % (Manual) Lymphocytes % (Manual) Seg Neutrophils # Seg Neutrophils # Man Lymphocytes # (Manual) D-Dimer POC ABG pH POC ABG pCO2 POC ABG pO2 Sodium Potassium Chloride Carbon Dioxide BUN 89 H Creatinine 5.3 H Glucose 273 H POC Glucose 161 H 136 H Calcium 6.2 L Phosphorus Iron TIBC Albumin TSH Urine WBC (Auto) Urine Creatinine Crossmatch 07/25/16 07/25/16 07/25/16 06:25 11:56 16:10 WBC RBC Hgb Hct MCH RDW Plt Count Lymph % (Auto) [place] % (Auto) Lymph # [place] # Seg Neutrophils % Seg Neuts % (Manual) Lymphocytes % (Manual) Seg Neutrophils # Seg Neutrophils # Man Lymphocytes # (Manual) D-Dimer POC ABG pH POC ABG pCO2 POC ABG pO2 Sodium Potassium Chloride Carbon Dioxide BUN Creatinine Glucose POC Glucose 311 H 164 H 249 H Calcium Phosphorus Iron TIBC Albumin TSH Urine WBC (Auto) Urine Creatinine Crossmatch 07/25/16 07/26/16 07/26/16 21:13 06:19 11:31 WBC RBC Hgb Hct MCH RDW Plt Count Lymph % (Auto) [place] % (Auto) Lymph # [place] # Seg Neutrophils % Seg Neuts % (Manual) Lymphocytes % (Manual) Seg Neutrophils # Seg Neutrophils # Man Lymphocytes # (Manual) D-Dimer POC ABG pH POC ABG pCO2 POC ABG pO2 Sodium Potassium Chloride Carbon Dioxide BUN Creatinine Glucose POC Glucose 194 H 280 H 191 H Calcium Phosphorus Iron TIBC Albumin TSH Urine WBC (Auto) Urine Creatinine Crossmatch 07/26/16 07/26/16 07/26/16 12:50 12:50 13:02 WBC RBC 2.35 L Hgb 6.5 L Hct 20.0 L MCH RDW 18.4 H Plt Count 135 L Lymph % (Auto) 7.7 L [place] % (Auto) Lymph # 0.6 L [place] # Seg Neutrophils % 86.8 H Seg Neuts % (Manual) Lymphocytes % (Manual) Seg Neutrophils # Seg Neutrophils # Man Lymphocytes # (Manual) D-Dimer POC ABG pH 7.523 H POC ABG pCO2 31.3 L POC ABG pO2 Sodium Potassium Chloride Carbon Dioxide BUN 67 H Creatinine 4.9 H Glucose 139 H POC Glucose Calcium 6.1 L Phosphorus Iron TIBC Albumin TSH Urine WBC (Auto) Urine Creatinine Crossmatch 07/26/16 07/26/16 07/26/16 15:10 16:11 23:25 WBC RBC Hgb Hct MCH RDW Plt Count Lymph % (Auto) [place] % (Auto) Lymph # [place] # Seg Neutrophils % Seg Neuts % (Manual) Lymphocytes % (Manual) Seg Neutrophils # Seg Neutrophils # Man Lymphocytes # (Manual) D-Dimer POC ABG pH POC ABG pCO2 POC ABG pO2 Sodium Potassium Chloride Carbon Dioxide BUN Creatinine Glucose POC Glucose 204 H 115 H Calcium Phosphorus Iron TIBC Albumin TSH Urine WBC (Auto) Urine Creatinine Crossmatch See Detail 07/27/16 07/27/16 07/27/16 06:39 09:28 09:28 WBC RBC 3.30 L Hgb 9.4 L Hct 28.5 L D MCH RDW 16.5 H Plt Count 115 L Lymph % (Auto) [place] % (Auto) Lymph # [place] # Seg Neutrophils % 78.0 H Seg Neuts % (Manual) Lymphocytes % (Manual) Seg Neutrophils # 8.2 H Seg Neutrophils # Man Lymphocytes # (Manual) D-Dimer POC ABG pH POC ABG pCO2 POC ABG pO2 Sodium Potassium 2.6 L* D Chloride 97.7 L Carbon Dioxide BUN 36 H Creatinine 2.9 H Glucose 157 H POC Glucose 194 H Calcium 6.8 L Phosphorus Iron TIBC Albumin TSH Urine WBC (Auto) Urine Creatinine Crossmatch 07/27/16 07/27/16 07/28/16 11:06 21:17 05:56 WBC RBC Hgb Hct MCH RDW Plt Count Lymph % (Auto) [place] % (Auto) Lymph # [place] # Seg Neutrophils % Seg Neuts % (Manual) Lymphocytes % (Manual) Seg Neutrophils # Seg Neutrophils # Man Lymphocytes # (Manual) D-Dimer POC ABG pH POC ABG pCO2 POC ABG pO2 Sodium Potassium 3.2 L D Chloride Carbon Dioxide BUN 46 H Creatinine 3.5 H Glucose 205 H POC Glucose 145 H 121 H Calcium 6.8 L Phosphorus Iron TIBC Albumin TSH Urine WBC (Auto) Urine Creatinine Crossmatch 07/28/16 07/28/16 07/28/16 05:56 11:12 17:21 WBC RBC Hgb 9.1 L Hct 28.0 L MCH RDW Plt Count Lymph % (Auto) [place] % (Auto) Lymph # [place] # Seg Neutrophils % Seg Neuts % (Manual) Lymphocytes % (Manual) Seg Neutrophils # Seg Neutrophils # Man Lymphocytes # (Manual) D-Dimer POC ABG pH POC ABG pCO2 POC ABG pO2 Sodium Potassium Chloride Carbon Dioxide BUN Creatinine Glucose POC Glucose 125 H 157 H Calcium Phosphorus Iron TIBC Albumin TSH Urine WBC (Auto) Urine Creatinine Crossmatch 07/28/16 07/29/16 07/29/16 21:46 12:10 15:52 WBC RBC Hgb Hct MCH RDW Plt Count Lymph % (Auto) [place] % (Auto) Lymph # [place] # Seg Neutrophils % Seg Neuts % (Manual) Lymphocytes % (Manual) Seg Neutrophils # Seg Neutrophils # Man Lymphocytes # (Manual) D-Dimer POC ABG pH POC ABG pCO2 POC ABG pO2 Sodium Potassium Chloride Carbon Dioxide BUN Creatinine Glucose POC Glucose 190 H 169 H 145 H Calcium Phosphorus Iron TIBC Albumin TSH Urine WBC (Auto) Urine Creatinine Crossmatch 07/29/16 07/30/16 07/30/16 23:56 00:15 05:38 WBC RBC Hgb 8.5 L Hct 26.4 L MCH RDW Plt Count Lymph % (Auto) [place] % (Auto) Lymph # [place] # Seg Neutrophils % Seg Neuts % (Manual) Lymphocytes % (Manual) Seg Neutrophils # Seg Neutrophils # Man Lymphocytes # (Manual) D-Dimer POC ABG pH POC ABG pCO2 POC ABG pO2 Sodium Potassium Chloride Carbon Dioxide BUN Creatinine Glucose POC Glucose 166 H Calcium Phosphorus Iron 23 L TIBC 142 L Albumin TSH Urine WBC (Auto) Urine Creatinine Crossmatch 07/30/16 07/30/16 05:38 06:19 WBC RBC Hgb Hct MCH RDW Plt Count Lymph % (Auto) [place] % (Auto) Lymph # [place] # Seg Neutrophils % Seg Neuts % (Manual) Lymphocytes % (Manual) Seg Neutrophils # Seg Neutrophils # Man Lymphocytes # (Manual) D-Dimer POC ABG pH POC ABG pCO2 POC ABG pO2 Sodium Potassium Chloride Carbon Dioxide BUN 40 H Creatinine 3.5 H Glucose 151 H POC Glucose 167 H Calcium 7.1 L Phosphorus Iron TIBC Albumin TSH Urine WBC (Auto) Urine Creatinine Crossmatch
--- NOTE | 2016-07-30 15:00 | Progress Note ---
Assessment and Plan Assessment and plan: Severe hypokalemia * replaced and improved * cont to monitor, she was hyperkalemic on admission Severe microcytic anemia * s/p 2 units of PRBC * stool for occult blood positive, GI following * Planned for EGD during PEG tube placement * could be due to CKD Acute hypoxic respiratory failure * Resolved, s/p extubation, Off BiPAP * On oxygen support Angioedema with dysphagia * Patient is now extubated and doing well. * Repeat swallow study was unsuccessfull * GI following for PEG placement on 08/01/16 Urinary tract infection * Urine culture positive for Klebsiella * Treated with Rocephin, Acute renal failurevon CKD stage IV. * Etiology likely secondary to vasomotor nephropathy versus interstitial nephritis from initial treatment with Bactrim for UTI. * Patient is on hemodialysis, will need out pt HD set up Hyperkalemia. * improved after dialysis DM2 * Monitor blood glucose closely, SSI Toxic metabolic encephalopathy. * Continue to treat underlying causes. * Continue supportive care Hypothyroidism. * Continue Synthroid. Hypertension * Continue current antihypertensive and adjust medications as needed * Hydralazine when necessary Left upper extremity swelling. * Ultrasound showed SVT in the cephalic vein * conservative management History Interval history: Pt lying in bed, nonverbal, no reported nursing events. As per family request repeat swallow evaluation was unsuccessful. Pt high risk for aspiration. Pt unable to tolerate swallow evaluation. s/p perm cath placement, will need out patient HD set up. Had family meeting with daughter and she agreed for PEG tube placement. GI on board for PEG placement, stool is positive for occult blood. Patient denies any chest pain. Tolerating NG tube feeding. Hospitalist Physical - Physical exam Narrative exam: General appearance: Present: no acute distress, obese - EENT Eyes: Present: PERRL - Neck Neck: Present: supple - Respiratory Respiratory: bilateral: diminished - Cardiovascular Rhythm: regular Heart Sounds: Present: S1 & S2 - Extremities Extremity abnormal: edema Peripheral Pulses: within normal limits - Abdominal General gastrointestinal: soft, non-tender, non-distended, no hepatomegaly, no splenomegaly - Integumentary Integumentary: Present: clear, dry, decreased turgor - Psychiatric Psychiatric: no intact judgment & insight, no memory intact - Constitutional Vitals: Temp Pulse Resp BP Pulse Ox 98.4 F 79 20 143/62 97 07/30/16 14:49 07/30/16 14:49 07/30/16 14:49 07/30/16 14:49 07/30/16 14:49 General appearance: Present: no acute distress, obese Results - Labs CBC & Chem 7: 07/30/16 05:38 07/30/16 05:38 Labs: Laboratory Last Values WBC 10.5 K/mm3 (4.5-11.0) 07/27/16 09:28 RBC 3.30 M/mm3 (3.65-5.03) L 07/27/16 09:28 Hgb 8.5 gm/dl (10.1-14.3) L 07/30/16 05:38 Hct 26.4 % (30.3-42.9) L 07/30/16 05:38 MCV 86 fl (79-97) 07/27/16 09:28 MCH 29 pg (28-32) 07/27/16 09:28 MCHC 33 % (30-34) 07/27/16 09:28 RDW 16.5 % (13.2-15.2) H 07/27/16 09:28 Plt Count 115 K/mm3 (140-440) L 07/27/16 09:28 Lymph % (Auto) 14.1 % (13.4-35.0) 07/27/16 09:28 [place] % (Auto) 6.5 % (0.0-7.3) 07/27/16 09:28 Eos % (Auto) 1.1 % (0.0-4.3) 07/27/16 09:28 Baso % (Auto) 0.3 % (0.0-1.8) 07/27/16 09:28 Lymph # 1.5 K/mm3 (1.2-5.4) 07/27/16 09:28 [place] # 0.7 K/mm3 (0.0-0.8) 07/27/16 09:28 Eos # 0.1 K/mm3 (0.0-0.4) 07/27/16 09:28 Baso # 0.0 K/mm3 (0.0-0.1) 07/27/16 09:28 Add Manual Diff Complete 07/18/16 05:06 Total Counted 100 07/18/16 05:06 Seg Neutrophils % 78.0 % (40.0-70.0) H 07/27/16 09:28 Seg Neuts % (Manual) 80.0 % (40.0-70.0) H 07/18/16 05:06 Band Neutrophils % 4.0 % 07/18/16 05:06 Lymphocytes % (Manual) 10.0 % (13.4-35.0) L 07/18/16 05:06 Reactive Lymphs % (Man) 0 % 07/18/16 05:06 Monocytes % (Manual) 6.0 % (0.0-7.3) 07/18/16 05:06 Eosinophils % (Manual) 0 % (0.0-4.3) 07/17/16 06:52 Basophils % (Manual) 0 % (0.0-1.8) 07/17/16 06:52 Metamyelocytes % 0 % 07/18/16 05:06 Myelocytes % 0 % 07/18/16 05:06 Promyelocytes % 0 % 07/18/16 05:06 Blast Cells % 0 % 07/18/16 05:06 Nucleated RBC % Not Reportable 07/18/16 05:06 Seg Neutrophils # 8.2 K/mm3 (1.8-7.7) H 07/27/16 09:28 Seg Neutrophils # Man 6.9 K/mm3 (1.8-7.7) 07/18/16 05:06 Band Neutrophils # 0.3 K/mm3 07/18/16 05:06 Lymphocytes # (Manual) 0.9 K/mm3 (1.2-5.4) L 07/18/16 05:06 Abs React Lymphs (Man) 0.0 K/mm3 07/18/16 05:06 Monocytes # (Manual) 0.5 K/mm3 (0.0-0.8) 07/18/16 05:06 Eosinophils # (Manual) 0.0 K/mm3 (0.0-0.4) 07/18/16 05:06 Basophils # (Manual) 0.0 K/mm3 (0.0-0.1) 07/18/16 05:06 Metamyelocytes # 0.0 K/mm3 07/18/16 05:06 Myelocytes # 0.0 K/mm3 07/18/16 05:06 Promyelocytes # 0.0 K/mm3 07/18/16 05:06 Blast Cells # 0.0 K/mm3 07/18/16 05:06 WBC Morphology Not Reportable 07/18/16 05:06 Hypersegmented Neuts Not Reportable 07/18/16 05:06 Hyposegmented Neuts Not Reportable 07/18/16 05:06 Hypogranular Neuts Not Reportable 07/18/16 05:06 Smudge Cells Not Reportable 07/18/16 05:06 Toxic Granulation Not Reportable 07/18/16 05:06 Toxic Vacuolation Not Reportable 07/18/16 05:06 Dohle Bodies Not Reportable 07/18/16 05:06 Pelger-Huet Anomaly Not Reportable 07/18/16 05:06 [place] Rods Not Reportable 07/18/16 05:06 Platelet Estimate Not Reportable 07/18/16 05:06 Clumped Platelets Not Reportable 07/18/16 05:06 Plt Clumps, EDTA Not Reportable 07/18/16 05:06 Large Platelets Not Reportable 07/18/16 05:06 Giant Platelets Not Reportable 07/18/16 05:06 Platelet Satelliting Not Reportable 07/18/16 05:06 Plt Morphology Comment Not Reportable 07/18/16 05:06 RBC Morphology Not Reportable 07/18/16 05:06 Dimorphic RBCs Not Reportable 07/18/16 05:06 Polychromasia Not Reportable 07/18/16 05:06 Hypochromasia Not Reportable 07/18/16 05:06 Poikilocytosis Not Reportable 07/18/16 05:06 Anisocytosis 1+ 07/18/16 05:06 Microcytosis Not Reportable 07/18/16 05:06 Macrocytosis Not Reportable 07/18/16 05:06 Spherocytes Not Reportable 07/18/16 05:06 Pappenheimer Bodies Not Reportable 07/18/16 05:06 Sickle Cells Not Reportable 07/18/16 05:06 Target Cells Not Reportable 07/18/16 05:06 Tear Drop Cells Not Reportable 07/18/16 05:06 Ovalocytes Not Reportable 07/18/16 05:06 Helmet Cells Not Reportable 07/18/16 05:06 [place] Bodies Not Reportable 07/18/16 05:06 [place] Rings Not Reportable 07/18/16 05:06 [place] Cells Not Reportable 07/18/16 05:06 Bite Cells Not Reportable 07/18/16 05:06 Crenated Cell Not Reportable 07/18/16 05:06 Elliptocytes Few 07/18/16 05:06 Acanthocytes (Spur) Not Reportable 07/18/16 05:06 Rouleaux Not Reportable 07/18/16 05:06 Hemoglobin C Crystals Not Reportable 07/18/16 05:06 Schistocytes Not Reportable 07/18/16 05:06 Malaria parasites Not Reportable 07/18/16 05:06 Kaushik Bodies Not Reportable 07/18/16 05:06 Hem Pathologist Commnt No 07/18/16 05:06 PT 14.1 Sec. (12.2-14.9) 07/18/16 05:06 INR 1.10 (0.87-1.13) 07/18/16 05:06 APTT 34.8 Sec. (24.2-36.6) 07/18/16 05:06 D-Dimer 751.80 ng/mlDDU (0-234) H 07/11/16 12:22 POC ABG pH 7.523 (7.35-7.45) H 07/26/16 13:02 POC ABG pCO2 31.3 (35-45) L 07/26/16 13:02 POC ABG pO2 96 (80-105) 07/26/16 13:02 POC ABG HCO3 25.7 07/26/16 13:02 POC ABG Total CO2 27 07/26/16 13:02 POC ABG O2 Sat 98 07/26/16 13:02 POC ABG Base Excess 3 07/26/16 13:02 FiO2 21 % 07/26/16 13:02 Sodium 143 mmol/L (137-145) 07/30/16 05:38 Potassium 4.1 mmol/L (3.6-5.0) D 07/30/16 05:38 Chloride 103.6 mmol/L (98-107) 07/30/16 05:38 Carbon Dioxide 28 mmol/L (22-30) 07/30/16 05:38 Anion Gap 16 mmol/L 07/30/16 05:38 BUN 40 mg/dL (7-17) H 07/30/16 05:38 Creatinine 3.5 mg/dL (0.7-1.2) H 07/30/16 05:38 Estimated GFR 16 ml/min 07/30/16 05:38 BUN/Creatinine Ratio 11.42 % 07/30/16 05:38 Glucose 151 mg/dL (65-100) H 07/30/16 05:38 POC Glucose 167 (70-105) H 07/30/16 06:19 Hemoglobin A1c 5.6 % (4-6) 07/15/16 04:56 Lactic Acid 0.8 mmol/L (0.7-2.0) 07/19/16 00:37 Calcium 7.1 mg/dL (8.4-10.2) L 07/30/16 05:38 Phosphorus 5.2 mg/dL (2.5-4.5) H 07/17/16 06:52 Magnesium 1.9 mg/dL (1.7-2.3) 07/17/16 06:52 Iron 23 ug/dL (37-170) L 07/30/16 00:15 TIBC 142 mcg/dL (250-450) L 07/30/16 00:15 Total Bilirubin < 0.2 mg/dL (0.1-1.2) 07/10/16 06:43 AST 17 units/L (5-40) 07/10/16 06:43 ALT 9 units/L (7-56) 07/10/16 06:43 Alkaline Phosphatase 62 units/L (35-129) 07/10/16 06:43 Total Creatine Kinase 131 units/L (30-135) 07/11/16 12:22 CK-MB (CK-2) 2.0 ng/mL (0.0-4.0) 07/11/16 12:22 CK-MB (CK-2) Rel Index 1.5 (0-4) 07/11/16 12:22 Troponin T < 0.010 ng/mL (0.00-0.029) 07/11/16 12:22 Total Protein 6.7 g/dL (6.3-8.2) 07/10/16 06:43 Albumin 3.5 g/dL (3.9-5) L 07/10/16 06:43 Albumin/Globulin Ratio 1.1 % 07/10/16 06:43 TSH 8.090 mlU/mL (0.270-4.200) H 07/05/16 05:08 Urine Color Straw (Yellow) 07/06/16 01:18 Urine Turbidity Clear (Clear) 07/06/16 01:18 Urine pH 6.0 (5.0-7.0) 07/06/16 01:18 Ur Specific [place] 1.003 (1.003-1.030) 07/06/16 01:18 Urine Protein <15 mg/dl mg/dL (Negative) 07/06/16 01:18 Urine Glucose (UA) Neg mg/dL (Negative) 07/06/16 01:18 Urine Ketones Neg mg/dL (Negative) 07/06/16 01:18 Urine Blood Neg (Negative) 07/06/16 01:18 Urine Nitrite Neg (Negative) 07/06/16 01:18 Urine Bilirubin Neg (Negative) 07/06/16 01:18 Urine Urobilinogen < 2.0 mg/dL (<2.0) 07/06/16 01:18 Ur Leukocyte Esterase Mod (Negative) 07/06/16 01:18 Urine WBC (Auto) 7.0 /HPF (0.0-6.0) H 07/06/16 01:18 Urine RBC (Auto) 3.0 /HPF (0.0-6.0) 07/06/16 01:18 U Epithel Cells (Auto) 1.0 /HPF (0-13.0) 06/30/16 11:34 Urine Bacteria (Auto) 1+ /HPF (Negative) 06/30/16 11:34 Urine Eosinophils None seen (None Seen) 07/06/16 01:18 Urine Creatinine 36.6 mg/dL (0.1-20.0) H 07/06/16 01:18 Urine Microalbumin 6.5 mg/dL (0.1-34.0) 07/06/16 01:18 Microalb/Creat Ratio 177.5 ug/mg 07/06/16 01:18 Urine Sodium 28 mEq/L 07/06/16 01:18 Urine Opiates Screen Presumptive negative 06/30/16 11:34 Urine Methadone Screen Presumptive negative 06/30/16 11:34 Acetaminophen < 15.0 ug/mL (10.0-30.0) 06/30/16 12:01 Ur Barbiturates Screen Presumptive negative 06/30/16 11:34 Ur Phencyclidine Scrn Presumptive negative 06/30/16 11:34 Ur Amphetamines Screen Presumptive negative 06/30/16 11:34 U Benzodiazepines Scrn Presumptive negative 06/30/16 11:34 Urine Cocaine Screen Presumptive negative 06/30/16 11:34 U Marijuana (THC) Screen Presumptive negative 06/30/16 11:34 Drugs of Abuse Note Disclamer 06/30/16 11:34 Plasma/Serum Alcohol < 0.01 gm% (0-0.07) 06/30/16 12:01 Hepatitis A IgM Ab -1 (NonReactive) 07/16/16 19:08 Hep Bs Antigen Non-reactive (Negative) 07/16/16 19:08 Hep B Core IgM Ab Non-reactive (NonReactive) 07/16/16 19:08 Hepatitis C Antibody Non-reactive (NonReactive) 07/16/16 19:08 Blood Type O POSITIVE 07/26/16 15:10 Antibody Screen Negative 07/26/16 15:10 Crossmatch See Detail 07/26/16 15:10
[2016-07-31] MEDS: NOVOLOG SUB-Q SCH ×5 (01:08→22:50)
[2016-07-31] MEDS: APRESOLINE FEEDTUBE SCH ×4 (01:08→22:50)
[2016-07-31] MEDS: NEURONTIN PO SCH ×3 (01:08→22:45)
[2016-07-31] MEDS: HEPARIN SUB-Q SCH ×4 (07:48→22:15)
[2016-07-31] MEDS: SYNTHROID PO SCH (07:49)
[2016-07-31] MEDS: NORMODYNE PO SCH ×3 (08:30→22:05)
[2016-07-31 08:46] LABS: Hematocrit 24.9 % (30.3-42.9); Hemoglobin 8.1 gm/dl (10.1-14.3)
[2016-07-31 08:58] LABS: Calcium 6.9 mg/dL (8.4-10.2); Chloride 103.7 mmol/L (98-107); Potassium 4.2 mmol/L (3.6-5.0)
[2016-07-31] MEDS: PEPCID PO SCH (10:07)
--- NOTE | 2016-07-31 12:19 | Progress Note ---
Assessment and Plan Assessment and plan: Severe hypokalemia * resolved after replacement * cont to monitor, she was hyperkalemic on admission Severe microcytic anemia * s/p 2 units of PRBC * stool for occult blood positive, GI following * Planned for EGD during PEG tube placement, likely tomorrow. I discussed with Dr. Amaya, GI * could be due to CKD Acute hypoxic respiratory failure * Resolved, s/p extubation, Off BiPAP * On oxygen support Angioedema with dysphagia * Patient is now extubated and doing well. * Repeat swallow study was unsuccessfull * GI following for PEG placement tomorrow, 08/01/16 Urinary tract infection * Urine culture positive for Klebsiella * Treated with Rocephin, Acute renal failurevon CKD stage IV. * Etiology likely secondary to vasomotor nephropathy versus interstitial nephritis from initial treatment with Bactrim for UTI. * Patient is on hemodialysis, will need out pt HD set up Hyperkalemia. * improved after dialysis DM2 * Monitor blood glucose closely, SSI Toxic metabolic encephalopathy. * Continue to treat underlying causes. * Continue supportive care Hypothyroidism. * Continue Synthroid. Hypertension * Continue current antihypertensive and adjust medications as needed * Hydralazine when necessary Left upper extremity swelling. * Ultrasound showed SVT in the cephalic vein * conservative management History Interval history: non verbal, difficulty swallowing Hospitalist Physical - Physical exam Narrative exam: Gen: Not in acute distress HEENT: Normocephalic, atraumatic Neck :supple, no JVD Lungs clear to auscultation bilaterally no crackles or wheeze Heart :S1 and S2 regular, no murmurs no gallop Abdomen:soft, nontender, nondistended, normal bowel sounds Ext: edema left upper ext Neuro: lethargic - Constitutional Vitals: Temp Pulse Resp BP Pulse Ox 98.0 F 74 18 119/54 100 07/31/16 07:30 07/31/16 07:30 07/31/16 07:30 07/31/16 08:30 07/31/16 07:30 General appearance: Present: no acute distress, obese Results - Labs CBC & Chem 7: 08/01/16 02:49 07/31/16 08:16 Labs: Laboratory Last Values WBC 10.5 K/mm3 (4.5-11.0) 07/27/16 09:28 RBC 3.30 M/mm3 (3.65-5.03) L 07/27/16 09:28 Hgb 8.1 gm/dl (10.1-14.3) L 07/31/16 08:16 Hct 24.9 % (30.3-42.9) L 07/31/16 08:16 MCV 86 fl (79-97) 07/27/16 09: MCH 29 pg (28-32) 07/27/16 09: MCHC 33 % (30-34) 07/27/16 09:28 RDW 16.5 % (13.2-15.2) H 07/27/16 09:28 Plt Count 115 K/mm3 (140-440) L 07/27/16 09:28 Lymph % (Auto) 14.1 % (13.4-35.0) 07/27/16 09:28 Wake % (Auto) 6.5 % (0.0-7.3) 07/27/16 09: Eos % (Auto) 1.1 % (0.0-4.3) 07/27/16 09:28 Baso % (Auto) 0.3 % (0.0-1.8) 07/27/16 09:28 Lymph # 1.5 K/mm3 (1.2-5.4) 07/27/16 09:28 Wake # 0.7 K/mm3 (0.0-0.8) 07/27/16 09:28 Eos # 0.1 K/mm3 (0.0-0.4) 07/27/16 09:28 Baso # 0.0 K/mm3 (0.0-0.1) 07/27/16 09:28 Add Manual Diff Complete 07/18/16 05:06 Total Counted 100 07/18/16 05:06 Seg Neutrophils % 78.0 % (40.0-70.0) H 07/27/16 09:28 Seg Neuts % (Manual) 80.0 % (40.0-70.0) H 07/18/16 05:06 Band Neutrophils % 4.0 % 07/18/16 05:06 Lymphocytes % (Manual) 10.0 % (13.4-35.0) L 07/18/16 05:06 Reactive Lymphs % (Man) 0 % 07/18/16 05:06 Monocytes % (Manual) 6.0 % (0.0-7.3) 07/18/16 05:06 Eosinophils % (Manual) 0 % (0.0-4.3) 07/17/16 06:52 Basophils % (Manual) 0 % (0.0-1.8) 07/17/16 06:52 Metamyelocytes % 0 % 07/18/16 05:06 Myelocytes % 0 % 07/18/16 05:06 Promyelocytes % 0 % 07/18/16 05:06 Blast Cells % 0 % 07/18/16 05:06 Nucleated RBC % Not Reportable 07/18/16 05:06 Seg Neutrophils # 8.2 K/mm3 (1.8-7.7) H 07/27/16 09:28 Seg Neutrophils # Man 6.9 K/mm3 (1.8-7.7) 07/18/16 05:06 Band Neutrophils # 0.3 K/mm3 07/18/16 05:06 Lymphocytes # (Manual) 0.9 K/mm3 (1.2-5.4) L 07/18/16 05:06 Abs React Lymphs (Man) 0.0 K/mm3 07/18/16 05:06 Monocytes # (Manual) 0.5 K/mm3 (0.0-0.8) 07/18/16 05:06 Eosinophils # (Manual) 0.0 K/mm3 (0.0-0.4) 07/18/16 05:06 Basophils # (Manual) 0.0 K/mm3 (0.0-0.1) 07/18/16 05:06 Metamyelocytes # 0.0 K/mm3 07/18/16 05:06 Myelocytes # 0.0 K/mm3 07/18/16 05:06 Promyelocytes # 0.0 K/mm3 07/18/16 05:06 Blast Cells # 0.0 K/mm3 07/18/16 05:06 WBC Morphology Not Reportable 07/18/16 05:06 Hypersegmented Neuts Not Reportable 07/18/16 05:06 Hyposegmented Neuts Not Reportable 07/18/16 05:06 Hypogranular Neuts Not Reportable 07/18/16 05:06 Smudge Cells Not Reportable 07/18/16 05:06 Toxic Granulation Not Reportable 07/18/16 05:06 Toxic Vacuolation Not Reportable 07/18/16 05:06 Dohle Bodies Not Reportable 07/18/16 05:06 Pelger-Huet Anomaly Not Reportable 07/18/16 05:06 Shagufta Rods Not Reportable 07/18/16 05:06 Platelet Estimate Not Reportable 07/18/16 05:06 Clumped Platelets Not Reportable 07/18/16 05:06 Plt Clumps, EDTA Not Reportable 07/18/16 05:06 Large Platelets Not Reportable 07/18/16 05:06 Giant Platelets Not Reportable 07/18/16 05:06 Platelet Satelliting Not Reportable 07/18/16 05:06 Plt Morphology Comment Not Reportable 07/18/16 05:06 RBC Morphology Not Reportable 07/18/16 05:06 Dimorphic RBCs Not Reportable 07/18/16 05:06 Polychromasia Not Reportable 07/18/16 05:06 Hypochromasia Not Reportable 07/18/16 05:06 Poikilocytosis Not Reportable 07/18/16 05:06 Anisocytosis 1+ 07/18/16 05:06 Microcytosis Not Reportable 07/18/16 05:06 Macrocytosis Not Reportable 07/18/16 05:06 Spherocytes Not Reportable 07/18/16 05:06 Pappenheimer Bodies Not Reportable 07/18/16 05:06 Sickle Cells Not Reportable 07/18/16 05:06 Target Cells Not Reportable 07/18/16 05:06 Tear Drop Cells Not Reportable 07/18/16 05:06 Ovalocytes Not Reportable 07/18/16 05:06 Helmet Cells Not Reportable 07/18/16 05:06 Pérez-Calzada Bodies Not Reportable 07/18/16 05:06 Chappell Rings Not Reportable 07/18/16 05:06 Radha Cells Not Reportable 07/18/16 05:06 Bite Cells Not Reportable 07/18/16 05:06 Crenated Cell Not Reportable 07/18/16 05:06 Elliptocytes Few 07/18/16 05:06 Acanthocytes (Spur) Not Reportable 07/18/16 05:06 Rouleaux Not Reportable 07/18/16 05:06 Hemoglobin C Crystals Not Reportable 07/18/16 05:06 Schistocytes Not Reportable 07/18/16 05:06 Malaria parasites Not Reportable 07/18/16 05:06 Kaushik Bodies Not Reportable 07/18/16 05:06 Hem Pathologist Commnt No 07/18/16 05:06 PT 14.1 Sec. (12.2-14.9) 07/18/16 05:06 INR 1.10 (0.87-1.13) 07/18/16 05:06 APTT 34.8 Sec. (24.2-36.6) 07/18/16 05:06 D-Dimer 751.80 ng/mlDDU (0-234) H 07/11/16 12:22 POC ABG pH 7.523 (7.35-7.45) H 07/26/16 13:02 POC ABG pCO2 31.3 (35-45) L 07/26/16 13:02 POC ABG pO2 96 (80-105) 07/26/16 13:02 POC ABG HCO3 25.7 07/26/16 13:02 POC ABG Total CO2 27 07/26/16 13:02 POC ABG O2 Sat 98 07/26/16 13:02 POC ABG Base Excess 3 07/26/16 13:02 FiO2 21 % 07/26/16 13:02 Sodium 141 mmol/L (137-145) 07/31/16 08:16 Potassium 4.2 mmol/L (3.6-5.0) 07/31/16 08:16 Chloride 103.7 mmol/L (98-107) 07/31/16 08:16 Carbon Dioxide 24 mmol/L (22-30) 07/31/16 08:16 Anion Gap 18 mmol/L 07/31/16 08:16 BUN 52 mg/dL (7-17) H 07/31/16 08:16 Creatinine 4.0 mg/dL (0.7-1.2) H 07/31/16 08:16 Estimated GFR 13 ml/min 07/31/16 08:16 BUN/Creatinine Ratio 13.00 % 07/31/16 08:16 Glucose 152 mg/dL (65-100) H 07/31/16 08:16 POC Glucose 137 (70-105) H 07/31/16 11:26 Hemoglobin A1c 5.6 % (4-6) 07/15/16 04:56 Lactic Acid 0.8 mmol/L (0.7-2.0) 07/19/16 00:37 Calcium 6.9 mg/dL (8.4-10.2) L 07/31/16 08:16 Phosphorus 5.2 mg/dL (2.5-4.5) H 07/17/16 06:52 Magnesium 1.9 mg/dL (1.7-2.3) 07/17/16 06:52 Iron 23 ug/dL (37-170) L 07/30/16 00:15 TIBC 142 mcg/dL (250-450) L 07/30/16 00:15 Total Bilirubin < 0.2 mg/dL (0.1-1.2) 07/10/16 06:43 AST 17 units/L (5-40) 07/10/16 06:43 ALT 9 units/L (7-56) 07/10/16 06:43 Alkaline Phosphatase 62 units/L (35-129) 07/10/16 06:43 Total Creatine Kinase 131 units/L (30-135) 07/11/16 12:22 CK-MB (CK-2) 2.0 ng/mL (0.0-4.0) 07/11/16 12:22 CK-MB (CK-2) Rel Index 1.5 (0-4) 07/11/16 12:22 Troponin T < 0.010 ng/mL (0.00-0.029) 07/11/16 12:22 Total Protein 6.7 g/dL (6.3-8.2) 07/10/16 06:43 Albumin 3.5 g/dL (3.9-5) L 07/10/16 06:43 Albumin/Globulin Ratio 1.1 % 07/10/16 06:43 TSH 8.090 mlU/mL (0.270-4.200) H 07/05/16 05:08 Urine Color Straw (Yellow) 07/06/16 01:18 Urine Turbidity Clear (Clear) 07/06/16 01:18 Urine pH 6.0 (5.0-7.0) 07/06/16 01:18 Ur Specific [place] 1.003 (1.003-1.030) 07/06/16 01:18 Urine Protein <15 mg/dl mg/dL (Negative) 07/06/16 01:18 Urine Glucose (UA) Neg mg/dL (Negative) 07/06/16 01:18 Urine Ketones Neg mg/dL (Negative) 07/06/16 01:18 Urine Blood Neg (Negative) 07/06/16 01:18 Urine Nitrite Neg (Negative) 07/06/16 01:18 Urine Bilirubin Neg (Negative) 07/06/16 01:18 Urine Urobilinogen < 2.0 mg/dL (<2.0) 07/06/16 01:18 Ur Leukocyte Esterase Mod (Negative) 07/06/16 01:18 Urine WBC (Auto) 7.0 /HPF (0.0-6.0) H 07/06/16 01:18 Urine RBC (Auto) 3.0 /HPF (0.0-6.0) 07/06/16 01:18 U Epithel Cells (Auto) 1.0 /HPF (0-13.0) 06/30/16 11:34 Urine Bacteria (Auto) 1+ /HPF (Negative) 06/30/16 11:34 Urine Eosinophils None seen (None Seen) 07/06/16 01:18 Urine Creatinine 36.6 mg/dL (0.1-20.0) H 07/06/16 01:18 Urine Microalbumin 6.5 mg/dL (0.1-34.0) 07/06/16 01:18 Microalb/Creat Ratio 177.5 ug/mg 07/06/16 01:18 Urine Sodium 28 mEq/L 07/06/16 01:18 Urine Opiates Screen Presumptive negative 06/30/16 11:34 Urine Methadone Screen Presumptive negative 06/30/16 11:34 Acetaminophen < 15.0 ug/mL (10.0-30.0) 06/30/16 12:01 Ur Barbiturates Screen Presumptive negative 06/30/16 11:34 Ur Phencyclidine Scrn Presumptive negative 06/30/16 11:34 Ur Amphetamines Screen Presumptive negative 06/30/16 11:34 U Benzodiazepines Scrn Presumptive negative 06/30/16 11:34 Urine Cocaine Screen Presumptive negative 06/30/16 11:34 U Marijuana (THC) Screen Presumptive negative 06/30/16 11:34 Drugs of Abuse Note Disclamer 06/30/16 11:34 Plasma/Serum Alcohol < 0.01 gm% (0-0.07) 06/30/16 12:01 Hepatitis A IgM Ab -1 (NonReactive) 07/16/16 19:08 Hep Bs Antigen Non-reactive (Negative) 07/16/16 19:08 Hep B Core IgM Ab Non-reactive (NonReactive) 07/16/16 19:08 Hepatitis C Antibody Non-reactive (NonReactive) 07/16/16 19:08 Blood Type O POSITIVE 07/26/16 15:10 Antibody Screen Negative 07/26/16 15:10 Crossmatch See Detail 07/26/16 15:10
--- NOTE | 2016-07-31 18:23 | Event Note ---
Date: 07/31/16 pt not in room at the time of visit (in dialysis). Discussed with pt's nurse. Tolerating tube feeds via NG. NPO at midnight, hold AM heparin dose, and plan for likely PEG tube placement tomorrow.
[2016-07-31] MEDS: HEPARIN IV PRN (19:05)
--- NOTE | 2016-07-31 22:12 | Progress Note ---
Assessment and Plan Patient sleeping and on 2 litres O2. O2 satuaration 100%. No respiratory distress. - Patient Problems (1) Angioedema Current Visit: Yes Status: Acute Plan to address problem: Improved. (2) GABRIELA (acute kidney injury) Current Visit: Yes Status: Acute Plan to address problem: Patient is on dialysis. Mangement as per nephrology. (3) Encephalopathy acute Current Visit: Yes Status: Chronic Plan to address problem: Management as per primary care. (4) Hypertension Current Visit: Yes Status: Acute Plan to address problem: Management as per primary care. (5) Diabetes Current Visit: No Status: Acute Qualifiers: Diabetes mellitus type: type 2 Diabetes mellitus complication status: with kidney complications Diabetes mellitus complication detail: with chronic kidney disease Plan to address problem: Management as per primary care. (6) Bipolar disorder Current Visit: No Status: Acute Qualifiers: Active/Remission status: remission status unspecified Most recent bipolar episode type: most recent episode unspecified type Plan to address problem: Management as per primary care and psychiatry. Subjective Date of service: 07/31/16 Principal diagnosis: Acute Respiratory Failure; Angioedema Interval history: Patient sleeping and on 2 litres O2.O2 satuaration 100% No respiratory distress. Objective Vital Signs - 12hr 07/31/16 07/31/16 07/31/16 15:25 15:59 16:00 Temperature 98.6 F 98 F Pulse Rate 70 74 Pulse Rate [ 72 Right Radial] Respiratory 18 18 Rate Blood Pressure 164/62 144/62 Blood Pressure 145/64 [Right Arm] 07/31/16 07/31/16 07/31/16 16:15 16:36 16:45 Temperature Pulse Rate 74 74 74 Pulse Rate [ Right Radial] Respiratory Rate Blood Pressure 130/64 144/70 138/68 Blood Pressure [Right Arm] 07/31/16 07/31/16 07/31/16 17:00 17:15 17:30 Temperature Pulse Rate 75 78 80 Pulse Rate [ Right Radial] Respiratory Rate Blood Pressure 156/66 134/68 144/66 Blood Pressure [Right Arm] 07/31/16 07/31/16 07/31/16 17:45 18:00 18:15 Temperature Pulse Rate 80 82 82 Pulse Rate [ Right Radial] Respiratory Rate Blood Pressure 128/66 124/66 122/62 Blood Pressure [Right Arm] 07/31/16 07/31/1607/31/17 18:30 18:45 19:06 Temperature 98 F Pulse Rate 82 80 76 Pulse Rate [ Right Radial] Respiratory 18 Rate Blood Pressure 144/64 128/62 132/60 Blood Pressure [Right Arm] Constitutional: no acute distress, asleep, other (does not localize to sternal rub) Eyes: non-icteric ENT: oropharynx moist Neck: supple, no lymphadenopathy Effort: normal Ascultation: Bilateral: diminished breath sounds (bases) Cardiovascular: regular rate and rhythm Gastrointestinal: normoactive bowel sounds, soft, non-tender, non-distended Integumentary: normal Extremities: no cyanosis, no edema, pulses normal, no ischemia or petechiae Neurologic: non-focal exam (grossly), pupils equal and round, CN II-XII normal Psychiatric: other (somnolent) CBC and BMP: 07/31/16 08:16 07/31/16 08:16 ABG, PT/INR, D-dimer: ABG POC ABG pH 7.523 (7.35-7.45) H 07/26/16 13:02 POC ABG pCO2 31.3 (35-45) L 07/26/16 13:02 POC ABG pO2 96 (80-105) 07/26/16 13:02 POC ABG HCO3 25.7 07/26/16 13:02 POC ABG Total CO2 27 07/26/16 13:02 POC ABG O2 Sat 98 07/26/16 13:02 PT/INR, D-dimer PT 14.1 Sec. (12.2-14.9) 07/18/16 05:06 INR 1.10 (0.87-1.13) 07/18/16 05:06 D-Dimer 751.80 ng/mlDDU (0-234) H 07/11/16 12:22 Abnormal lab findings: Abnormal Labs 07/03/16 07/03/16 07/04/16 14:34 14:34 06:21 WBC 3.9 L RBC 3.16 L 3.04 L Hgb 8.5 L 8.0 L Hct 26.8 L 25.6 L MCH 27 L 26 L RDW 16.5 H 16.2 H Plt Count Lymph % (Auto) [place] % (Auto) 10.7 H 10.7 H Lymph # 1.0 L [place] # Seg Neutrophils % Seg Neuts % (Manual) Lymphocytes % (Manual) Seg Neutrophils # Seg Neutrophils # Man Lymphocytes # (Manual) D-Dimer POC ABG pH POC ABG pCO2 POC ABG pO2 Sodium Potassium Chloride 107.6 H Carbon Dioxide BUN 27 H Creatinine 2.6 H Glucose POC Glucose Calcium 8.0 L Phosphorus Iron TIBC Albumin TSH Urine WBC (Auto) Urine Creatinine Crossmatch 07/04/16 07/04/16 07/04/16 06:21 11:30 16:33 WBC RBC Hgb Hct MCH RDW Plt Count Lymph % (Auto) [place] % (Auto) Lymph # [place] # Seg Neutrophils % Seg Neuts % (Manual) Lymphocytes % (Manual) Seg Neutrophils # Seg Neutrophils # Man Lymphocytes # (Manual) D-Dimer POC ABG pH POC ABG pCO2 POC ABG pO2 Sodium Potassium Chloride 107.4 H Carbon Dioxide 21 L BUN 27 H Creatinine 2.7 H Glucose POC Glucose 110 H 106 H Calcium 7.8 L Phosphorus Iron TIBC Albumin TSH Urine WBC (Auto) Urine Creatinine Crossmatch 07/05/16 07/05/16 07/05/16 05:08 05:08 05:08 WBC 4.0 L RBC 2.87 L Hgb 7.7 L Hct 24.2 L MCH 27 L RDW 16.0 H Plt Count Lymph % (Auto) [place] % (Auto) Lymph # [place] # Seg Neutrophils % Seg Neuts % (Manual) Lymphocytes % (Manual) Seg Neutrophils # Seg Neutrophils # Man Lymphocytes # (Manual) D-Dimer POC ABG pH POC ABG pCO2 POC ABG pO2 Sodium Potassium Chloride Carbon Dioxide 21 L BUN 32 H Creatinine 3.7 H Glucose POC Glucose Calcium 7.8 L Phosphorus Iron TIBC Albumin TSH 8.090 H Urine WBC (Auto) Urine Creatinine Crossmatch 07/05/16 07/06/16 07/06/16 11:45 01:18 01:18 WBC RBC Hgb 8.3 L Hct 25.9 L MCH RDW Plt Count Lymph % (Auto) [place] % (Auto) Lymph # [place] # Seg Neutrophils % Seg Neuts % (Manual) Lymphocytes % (Manual) Seg Neutrophils # Seg Neutrophils # Man Lymphocytes # (Manual) D-Dimer POC ABG pH POC ABG pCO2 POC ABG pO2 Sodium Potassium Chloride Carbon Dioxide BUN Creatinine Glucose POC Glucose Calcium Phosphorus Iron TIBC Albumin TSH Urine WBC (Auto) 7.0 H Urine Creatinine 36.6 H Crossmatch 07/06/16 07/06/16 07/06/16 05:55 05:55 16:07 WBC 3.0 L RBC 2.79 L Hgb 7.5 L Hct 23.5 L MCH 27 L RDW 16.5 H Plt Count Lymph % (Auto) [place] % (Auto) Lymph # [place] # Seg Neutrophils % Seg Neuts % (Manual) Lymphocytes % (Manual) Seg Neutrophils # Seg Neutrophils # Man Lymphocytes # (Manual) D-Dimer POC ABG pH POC ABG pCO2 POC ABG pO2 Sodium Potassium Chloride 109.3 H Carbon Dioxide 20 L BUN 32 H Creatinine 3.4 H Glucose POC Glucose 117 H Calcium 7.5 L Phosphorus Iron TIBC Albumin TSH Urine WBC (Auto) Urine Creatinine Crossmatch 07/07/16 07/07/16 07/08/16 06:19 16:13 00:09 WBC RBC Hgb Hct MCH RDW Plt Count Lymph % (Auto) [place] % (Auto) Lymph # [place] # Seg Neutrophils % Seg Neuts % (Manual) Lymphocytes % (Manual) Seg Neutrophils # Seg Neutrophils # Man Lymphocytes # (Manual) D-Dimer POC ABG pH POC ABG pCO2 POC ABG pO2 Sodium Potassium Chloride 111.1 H Carbon Dioxide 20 L BUN 31 H Creatinine 3.1 H Glucose POC Glucose 108 H 134 H Calcium 8.0 L Phosphorus Iron TIBC Albumin TSH Urine WBC (Auto) Urine Creatinine Crossmatch 07/08/16 07/08/16 07/08/16 11:39 16:31 21:22 WBC RBC Hgb Hct MCH RDW Plt Count Lymph % (Auto) [place] % (Auto) Lymph # [place] # Seg Neutrophils % Seg Neuts % (Manual) Lymphocytes % (Manual) Seg Neutrophils # Seg Neutrophils # Man Lymphocytes # (Manual) D-Dimer POC ABG pH POC ABG pCO2 POC ABG pO2 Sodium Potassium Chloride Carbon Dioxide BUN Creatinine Glucose POC Glucose 119 H 130 H 152 H Calcium Phosphorus Iron TIBC Albumin TSH Urine WBC (Auto) Urine Creatinine Crossmatch 07/09/16 07/09/16 07/09/16 05:52 05:52 06:02 WBC RBC 3.55 L Hgb 9.4 L Hct MCH 27 L RDW 17.1 H Plt Count Lymph % (Auto) [place] % (Auto) Lymph # [place] # Seg Neutrophils % Seg Neuts % (Manual) Lymphocytes % (Manual) Seg Neutrophils # Seg Neutrophils # Man Lymphocytes # (Manual) D-Dimer POC ABG pH POC ABG pCO2 POC ABG pO2 Sodium 147 H Potassium 5.4 H Chloride 112.8 H Carbon Dioxide 21 L BUN 30 H Creatinine 2.5 H Glucose 21 L* POC Glucose < 40 L Calcium Phosphorus Iron TIBC Albumin TSH Urine WBC (Auto) Urine Creatinine Crossmatch 07/09/16 07/09/16 07/10/16 11:31 16:50 05:23 WBC RBC Hgb Hct MCH RDW Plt Count Lymph % (Auto) [place] % (Auto) Lymph # [place] # Seg Neutrophils % Seg Neuts % (Manual) Lymphocytes % (Manual) Seg Neutrophils # Seg Neutrophils # Man Lymphocytes # (Manual) D-Dimer POC ABG pH POC ABG pCO2 POC ABG pO2 Sodium Potassium Chloride Carbon Dioxide BUN Creatinine Glucose POC Glucose 114 H 149 H < 40 L Calcium Phosphorus Iron TIBC Albumin TSH Urine WBC (Auto) Urine Creatinine Crossmatch 07/10/16 07/10/16 07/10/16 06:03 06:43 06:43 WBC RBC 2.90 L Hgb 7.7 L Hct 25.0 L MCH 27 L RDW 17.0 H Plt Count Lymph % (Auto) [place] % (Auto) 10.4 H Lymph # 1.1 L [place] # Seg Neutrophils % Seg Neuts % (Manual) Lymphocytes % (Manual) Seg Neutrophils # Seg Neutrophils # Man Lymphocytes # (Manual) D-Dimer POC ABG pH POC ABG pCO2 POC ABG pO2 Sodium 148 H Potassium 5.1 H Chloride 111.7 H Carbon Dioxide 20 L BUN 31 H Creatinine 2.4 H Glucose POC Glucose 211 H Calcium 8.0 L Phosphorus Iron TIBC Albumin 3.5 L TSH Urine WBC (Auto) Urine Creatinine Crossmatch 07/10/16 07/11/16 07/11/16 14:55 05:37 05:47 WBC RBC Hgb 7.9 L Hct 25.5 L MCH RDW Plt Count Lymph % (Auto) [place] % (Auto) Lymph # [place] # Seg Neutrophils % Seg Neuts % (Manual) Lymphocytes % (Manual) Seg Neutrophils # Seg Neutrophils # Man Lymphocytes # (Manual) D-Dimer POC ABG pH POC ABG pCO2 POC ABG pO2 Sodium Potassium Chloride Carbon Dioxide BUN Creatinine Glucose POC Glucose < 40 L > 500 H Calcium Phosphorus Iron TIBC Albumin TSH Urine WBC (Auto) Urine Creatinine Crossmatch 07/11/16 07/11/16 07/11/16 05:56 07:42 07:48 WBC RBC Hgb Hct MCH RDW Plt Count Lymph % (Auto) [place] % (Auto) Lymph # [place] # Seg Neutrophils % Seg Neuts % (Manual) Lymphocytes % (Manual) Seg Neutrophils # Seg Neutrophils # Man Lymphocytes # (Manual) D-Dimer POC ABG pH POC ABG pCO2 POC ABG pO2 Sodium Potassium Chloride Carbon Dioxide BUN Creatinine Glucose POC Glucose 262 H 56 L 54 L Calcium Phosphorus Iron TIBC Albumin TSH Urine WBC (Auto) Urine Creatinine Crossmatch 07/11/16 07/11/16 07/11/16 08:34 08:50 09:53 WBC RBC Hgb Hct MCH RDW Plt Count Lymph % (Auto) [place] % (Auto) Lymph # [place] # Seg Neutrophils % Seg Neuts % (Manual) Lymphocytes % (Manual) Seg Neutrophils # Seg Neutrophils # Man Lymphocytes # (Manual) D-Dimer POC ABG pH POC ABG pCO2 31.1 L POC ABG pO2 108 H Sodium Potassium Chloride Carbon Dioxide BUN Creatinine Glucose POC Glucose 110 H 68 L Calcium Phosphorus Iron TIBC Albumin TSH Urine WBC (Auto) Urine Creatinine Crossmatch 07/11/16 07/11/16 07/11/16 11:48 12:22 12:22 WBC 11.6 H RBC Hgb Hct MCH 27 L RDW 17.2 H Plt Count Lymph % (Auto) [place] % (Auto) Lymph # [place] # Seg Neutrophils % Seg Neuts % (Manual) 91.0 H Lymphocytes % (Manual) 5.0 L Seg Neutrophils # 10.8 H Seg Neutrophils # Man 10.6 H Lymphocytes # (Manual) 0.6 L D-Dimer 751.80 H POC ABG pH POC ABG pCO2 POC ABG pO2 Sodium Potassium Chloride Carbon Dioxide BUN Creatinine Glucose POC Glucose 118 H Calcium Phosphorus Iron TIBC Albumin TSH Urine WBC (Auto) Urine Creatinine Crossmatch 07/11/16 07/11/16 07/11/16 12:22 12:29 15:23 WBC RBC Hgb Hct MCH RDW Plt Count Lymph % (Auto) [place] % (Auto) Lymph # [place] # Seg Neutrophils % Seg Neuts % (Manual) Lymphocytes % (Manual) Seg Neutrophils # Seg Neutrophils # Man Lymphocytes # (Manual) D-Dimer POC ABG pH POC ABG pCO2 28.4 L POC ABG pO2 Sodium Potassium 6.1 H* Chloride 109.4 H Carbon Dioxide 18 L BUN 30 H Creatinine 2.1 H Glucose 126 H POC Glucose 204 H Calcium Phosphorus Iron TIBC Albumin TSH Urine WBC (Auto) Urine Creatinine Crossmatch 07/11/16 07/11/16 07/11/16 17:27 17:55 21:42 WBC RBC Hgb Hct MCH RDW Plt Count Lymph % (Auto) [place] % (Auto) Lymph # [place] # Seg Neutrophils % Seg Neuts % (Manual) Lymphocytes % (Manual) Seg Neutrophils # Seg Neutrophils # Man Lymphocytes # (Manual) D-Dimer POC ABG pH POC ABG pCO2 POC ABG pO2 Sodium 146 H Potassium 6.5 H* Chloride 109.7 H Carbon Dioxide 20 L BUN 32 H Creatinine 2.4 H Glucose 167 H POC Glucose 433 H 142 H Calcium Phosphorus Iron TIBC Albumin TSH Urine WBC (Auto) Urine Creatinine Crossmatch 07/12/16 07/12/16 07/12/16 04:34 04:34 05:22 WBC 14.0 H RBC Hgb Hct MCH 27 L RDW 17.6 H Plt Count 113 L Lymph % (Auto) [place] % (Auto) Lymph # [place] # Seg Neutrophils % Seg Neuts % (Manual) 87.0 H Lymphocytes % (Manual) 11.0 L Seg Neutrophils # Seg Neutrophils # Man 12.2 H Lymphocytes # (Manual) D-Dimer POC ABG pH 7.452 H POC ABG pCO2 29.6 L POC ABG pO2 Sodium Potassium 6.8 H* Chloride 110.2 H Carbon Dioxide 16 L BUN 43 H Creatinine 2.9 H Glucose 113 H POC Glucose Calcium Phosphorus Iron TIBC Albumin TSH Urine WBC (Auto) Urine Creatinine Crossmatch 07/12/16 07/12/16 07/12/16 13:24 17:28 21:11 WBC RBC Hgb Hct MCH RDW Plt Count Lymph % (Auto) [place] % (Auto) Lymph # [place] # Seg Neutrophils % Seg Neuts % (Manual) Lymphocytes % (Manual) Seg Neutrophils # Seg Neutrophils # Man Lymphocytes # (Manual) D-Dimer POC ABG pH POC ABG pCO2 POC ABG pO2 Sodium 150 H Potassium Chloride 108.9 H Carbon Dioxide 21 L BUN 52 H Creatinine 3.7 H Glucose 143 H POC Glucose 148 H 134 H Calcium 8.0 L Phosphorus Iron TIBC Albumin TSH Urine WBC (Auto) Urine Creatinine Crossmatch 07/12/16 07/13/16 07/13/16 21:50 04:40 04:40 WBC 14.0 H RBC 3.50 L Hgb 9.3 L Hct 29.3 L MCH 27 L RDW 17.3 H Plt Count Lymph % (Auto) 4.9 L [place] % (Auto) Lymph # 0.7 L [place] # Seg Neutrophils % 90.0 H Seg Neuts % (Manual) 93.0 H Lymphocytes % (Manual) 5.0 L Seg Neutrophils # 12.6 H Seg Neutrophils # Man 13.0 H Lymphocytes # (Manual) 0.7 L D-Dimer POC ABG pH POC ABG pCO2 POC ABG pO2 Sodium 151 H Potassium Chloride 109.3 H Carbon Dioxide BUN 59 H Creatinine 4.0 H Glucose 63 L POC Glucose 156 H Calcium 7.7 L Phosphorus Iron TIBC Albumin TSH Urine WBC (Auto) Urine Creatinine Crossmatch 07/13/16 07/13/16 07/13/16 06:10 06:40 08:03 WBC RBC Hgb Hct MCH RDW Plt Count Lymph % (Auto) [place] % (Auto) Lymph # [place] # Seg Neutrophils % Seg Neuts % (Manual) Lymphocytes % (Manual) Seg Neutrophils # Seg Neutrophils # Man Lymphocytes # (Manual) D-Dimer POC ABG pH POC ABG pCO2 POC ABG pO2 Sodium Potassium Chloride Carbon Dioxide BUN Creatinine Glucose POC Glucose 68 L 176 H 141 H Calcium Phosphorus Iron TIBC Albumin TSH Urine WBC (Auto) Urine Creatinine Crossmatch 07/13/16 07/13/16 07/13/16 09:17 12:30 14:15 WBC RBC Hgb Hct MCH RDW Plt Count Lymph % (Auto) [place] % (Auto) Lymph # [place] # Seg Neutrophils % Seg Neuts % (Manual) Lymphocytes % (Manual) Seg Neutrophils # Seg Neutrophils # Man Lymphocytes # (Manual) D-Dimer POC ABG pH 7.475 H 7.529 H POC ABG pCO2 33.4 L 26.8 L POC ABG pO2 110 H 70 L Sodium Potassium Chloride Carbon Dioxide BUN Creatinine Glucose POC Glucose 177 H Calcium Phosphorus Iron TIBC Albumin TSH Urine WBC (Auto) Urine Creatinine Crossmatch 07/13/16 07/13/16 07/13/16 15:28 17:57 22:10 WBC RBC Hgb Hct MCH RDW Plt Count Lymph % (Auto) [place] % (Auto) Lymph # [place] # Seg Neutrophils % Seg Neuts % (Manual) Lymphocytes % (Manual) Seg Neutrophils # Seg Neutrophils # Man Lymphocytes # (Manual) D-Dimer POC ABG pH POC ABG pCO2 POC ABG pO2 Sodium Potassium Chloride Carbon Dioxide BUN Creatinine Glucose POC Glucose 122 H 166 H 197 H Calcium Phosphorus Iron TIBC Albumin TSH Urine WBC (Auto) Urine Creatinine Crossmatch 07/14/16 07/14/16 07/14/16 02:00 04:21 04:21 WBC RBC 3.01 L Hgb 8.1 L Hct 25.3 L MCH 27 L RDW 17.9 H Plt Count Lymph % (Auto) 6.1 L [place] % (Auto) Lymph # 0.5 L [place] # Seg Neutrophils % 89.9 H Seg Neuts % (Manual) Lymphocytes % (Manual) Seg Neutrophils # Seg Neutrophils # Man Lymphocytes # (Manual) D-Dimer POC ABG pH POC ABG pCO2 POC ABG pO2 Sodium 150 H Potassium Chloride 107.3 H Carbon Dioxide 21 L BUN 82 H Creatinine 4.8 H Glucose 176 H POC Glucose 166 H Calcium 6.8 L Phosphorus Iron TIBC Albumin TSH Urine WBC (Auto) Urine Creatinine Crossmatch 07/14/16 07/14/16 07/14/16 05:32 09:42 22:32 WBC RBC Hgb Hct MCH RDW Plt Count Lymph % (Auto) [place] % (Auto) Lymph # [place] # Seg Neutrophils % Seg Neuts % (Manual) Lymphocytes % (Manual) Seg Neutrophils # Seg Neutrophils # Man Lymphocytes # (Manual) D-Dimer POC ABG pH POC ABG pCO2 POC ABG pO2 Sodium Potassium Chloride Carbon Dioxide BUN Creatinine Glucose POC Glucose 202 H 216 H 191 H Calcium Phosphorus Iron TIBC Albumin TSH Urine WBC (Auto) Urine Creatinine Crossmatch 07/15/16 07/15/16 07/15/16 04:46 04:56 04:56 WBC RBC 3.04 L Hgb 8.2 L Hct 25.8 L MCH 27 L RDW 17.3 H Plt Count Lymph % (Auto) 4.2 L [place] % (Auto) 11.8 H Lymph # 0.4 L [place] # 1.1 H Seg Neutrophils % 83.9 H Seg Neuts % (Manual) Lymphocytes % (Manual) Seg Neutrophils # Seg Neutrophils # Man Lymphocytes # (Manual) D-Dimer POC ABG pH POC ABG pCO2 POC ABG pO2 Sodium 147 H Potassium 3.4 L Chloride Carbon Dioxide 20 L BUN 109 H Creatinine 5.2 H Glucose 242 H POC Glucose 275 H Calcium 6.3 L Phosphorus Iron TIBC Albumin TSH Urine WBC (Auto) Urine Creatinine Crossmatch 07/15/16 07/15/16 07/15/16 11:32 16:52 20:41 WBC RBC Hgb Hct MCH RDW Plt Count Lymph % (Auto) [place] % (Auto) Lymph # [place] # Seg Neutrophils % Seg Neuts % (Manual) Lymphocytes % (Manual) Seg Neutrophils # Seg Neutrophils # Man Lymphocytes # (Manual) D-Dimer POC ABG pH POC ABG pCO2 POC ABG pO2 Sodium Potassium Chloride Carbon Dioxide BUN Creatinine Glucose POC Glucose 250 H 195 H 219 H Calcium Phosphorus Iron TIBC Albumin TSH Urine WBC (Auto) Urine Creatinine Crossmatch 07/16/16 07/16/16 07/16/16 00:37 05:47 09:54 WBC RBC 3.20 L Hgb 8.6 L Hct 27.3 L MCH 27 L RDW 17.1 H Plt Count Lymph % (Auto) 4.2 L [place] % (Auto) Lymph # 0.3 L [place] # Seg Neutrophils % 89.6 H Seg Neuts % (Manual) Lymphocytes % (Manual) Seg Neutrophils # Seg Neutrophils # Man Lymphocytes # (Manual) D-Dimer POC ABG pH POC ABG pCO2 POC ABG pO2 Sodium Potassium Chloride Carbon Dioxide BUN Creatinine Glucose POC Glucose 257 H 223 H Calcium Phosphorus Iron TIBC Albumin TSH Urine WBC (Auto) Urine Creatinine Crossmatch 07/16/16 07/16/16 07/16/16 09:54 11:54 17:48 WBC RBC Hgb Hct MCH RDW Plt Count Lymph % (Auto) [place] % (Auto) Lymph # [place] # Seg Neutrophils % Seg Neuts % (Manual) Lymphocytes % (Manual) Seg Neutrophils # Seg Neutrophils # Man Lymphocytes # (Manual) D-Dimer POC ABG pH POC ABG pCO2 POC ABG pO2 Sodium 148 H Potassium Chloride Carbon Dioxide 21 L BUN 146 H Creatinine 6.0 H Glucose 249 H POC Glucose 294 H 195 H Calcium 6.4 L Phosphorus Iron TIBC Albumin TSH Urine WBC (Auto) Urine Creatinine Crossmatch 07/16/16 07/16/16 07/17/16 21:54 23:53 05:53 WBC RBC Hgb Hct MCH RDW Plt Count Lymph % (Auto) [place] % (Auto) Lymph # [place] # Seg Neutrophils % Seg Neuts % (Manual) Lymphocytes % (Manual) Seg Neutrophils # Seg Neutrophils # Man Lymphocytes # (Manual) D-Dimer POC ABG pH POC ABG pCO2 POC ABG pO2 Sodium Potassium Chloride Carbon Dioxide BUN Creatinine Glucose POC Glucose 161 H 171 H 208 H Calcium Phosphorus Iron TIBC Albumin TSH Urine WBC (Auto) Urine Creatinine Crossmatch 07/17/16 07/17/16 07/17/16 06:52 06:52 11:28 WBC RBC 3.17 L Hgb 8.6 L Hct 26.4 L MCH 27 L RDW 17.2 H Plt Count Lymph % (Auto) [place] % (Auto) Lymph # [place] # Seg Neutrophils % Seg Neuts % (Manual) 90.0 H Lymphocytes % (Manual) 8.0 L Seg Neutrophils # Seg Neutrophils # Man Lymphocytes # (Manual) 0.6 L D-Dimer POC ABG pH POC ABG pCO2 POC ABG pO2 Sodium Potassium Chloride Carbon Dioxide BUN 87 H Creatinine 4.2 H Glucose 231 H POC Glucose 255 H Calcium 6.2 L Phosphorus 5.2 H Iron TIBC Albumin TSH Urine WBC (Auto) Urine Creatinine Crossmatch 07/17/16 07/17/16 07/18/16 16:22 23:41 05:06 WBC RBC 3.25 L Hgb 8.8 L Hct 27.2 L MCH 27 L RDW 17.0 H Plt Count Lymph % (Auto) [place] % (Auto) Lymph # [place] # Seg Neutrophils % Seg Neuts % (Manual) 80.0 H Lymphocytes % (Manual) 10.0 L Seg Neutrophils # Seg Neutrophils # Man Lymphocytes # (Manual) 0.9 L D-Dimer POC ABG pH POC ABG pCO2 POC ABG pO2 Sodium Potassium Chloride Carbon Dioxide BUN Creatinine Glucose POC Glucose 263 H 195 H Calcium Phosphorus Iron TIBC Albumin TSH Urine WBC (Auto) Urine Creatinine Crossmatch 07/18/16 07/18/16 07/18/16 05:06 06:52 11:52 WBC RBC Hgb Hct MCH RDW Plt Count Lymph % (Auto) [place] % (Auto) Lymph # [place] # Seg Neutrophils % Seg Neuts % (Manual) Lymphocytes % (Manual) Seg Neutrophils # Seg Neutrophils # Man Lymphocytes # (Manual) D-Dimer POC ABG pH POC ABG pCO2 POC ABG pO2 Sodium Potassium Chloride 97.7 L Carbon Dioxide BUN 51 H Creatinine 2.8 H Glucose 252 H POC Glucose 289 H 242 H Calcium 6.4 L Phosphorus Iron TIBC Albumin TSH Urine WBC (Auto) Urine Creatinine Crossmatch 07/18/16 07/18/16 07/19/16 16:36 21:34 05:50 WBC RBC Hgb Hct MCH RDW Plt Count Lymph % (Auto) [place] % (Auto) Lymph # [place] # Seg Neutrophils % Seg Neuts % (Manual) Lymphocytes % (Manual) Seg Neutrophils # Seg Neutrophils # Man Lymphocytes # (Manual) D-Dimer POC ABG pH POC ABG pCO2 POC ABG pO2 Sodium Potassium Chloride Carbon Dioxide BUN Creatinine Glucose POC Glucose 221 H 210 H 273 H Calcium Phosphorus Iron TIBC Albumin TSH Urine WBC (Auto) Urine Creatinine Crossmatch 07/19/16 07/19/16 07/19/16 07:09 17:06 21:56 WBC RBC Hgb Hct MCH RDW Plt Count Lymph % (Auto) [place] % (Auto) Lymph # [place] # Seg Neutrophils % Seg Neuts % (Manual) Lymphocytes % (Manual) Seg Neutrophils # Seg Neutrophils # Man Lymphocytes # (Manual) D-Dimer POC ABG pH POC ABG pCO2 POC ABG pO2 Sodium Potassium Chloride 96.2 L Carbon Dioxide BUN 81 H Creatinine 4.9 H D Glucose 260 H POC Glucose 143 H 148 H Calcium 6.0 L Phosphorus Iron TIBC Albumin TSH Urine WBC (Auto) Urine Creatinine Crossmatch 07/20/16 07/20/16 07/20/16 05:21 06:29 11:01 WBC RBC Hgb Hct MCH RDW Plt Count Lymph % (Auto) [place] % (Auto) Lymph # [place] # Seg Neutrophils % Seg Neuts % (Manual) Lymphocytes % (Manual) Seg Neutrophils # Seg Neutrophils # Man Lymphocytes # (Manual) D-Dimer POC ABG pH POC ABG pCO2 POC ABG pO2 Sodium 136 L Potassium 3.4 L Chloride 94.4 L Carbon Dioxide BUN 43 H Creatinine 3.5 H Glucose 263 H POC Glucose 299 H 281 H Calcium 6.5 L Phosphorus Iron TIBC Albumin TSH Urine WBC (Auto) Urine Creatinine Crossmatch 07/20/16 07/20/16 07/21/16 17:07 22:54 06:24 WBC RBC Hgb Hct MCH RDW Plt Count Lymph % (Auto) [place] % (Auto) Lymph # [place] # Seg Neutrophils % Seg Neuts % (Manual) Lymphocytes % (Manual) Seg Neutrophils # Seg Neutrophils # Man Lymphocytes # (Manual) D-Dimer POC ABG pH POC ABG pCO2 POC ABG pO2 Sodium Potassium Chloride Carbon Dioxide BUN Creatinine Glucose POC Glucose 253 H 209 H 346 H Calcium Phosphorus Iron TIBC Albumin TSH Urine WBC (Auto) Urine Creatinine Crossmatch 07/21/16 07/21/16 07/21/16 07:25 15:46 21:23 WBC RBC Hgb Hct MCH RDW Plt Count Lymph % (Auto) [place] % (Auto) Lymph # [place] # Seg Neutrophils % Seg Neuts % (Manual) Lymphocytes % (Manual) Seg Neutrophils # Seg Neutrophils # Man Lymphocytes # (Manual) D-Dimer POC ABG pH POC ABG pCO2 POC ABG pO2 Sodium 133 L Potassium Chloride 90.7 L Carbon Dioxide BUN 71 H Creatinine 4.8 H Glucose 289 H POC Glucose 112 H 218 H Calcium 6.2 L Phosphorus Iron TIBC Albumin TSH Urine WBC (Auto) Urine Creatinine Crossmatch 07/22/16 07/22/16 07/22/16 06:28 11:49 16:37 WBC RBC Hgb Hct MCH RDW Plt Count Lymph % (Auto) [place] % (Auto) Lymph # [place] # Seg Neutrophils % Seg Neuts % (Manual) Lymphocytes % (Manual) Seg Neutrophils # Seg Neutrophils # Man Lymphocytes # (Manual) D-Dimer POC ABG pH POC ABG pCO2 POC ABG pO2 Sodium Potassium Chloride Carbon Dioxide BUN Creatinine Glucose POC Glucose 316 H 211 H 185 H Calcium Phosphorus Iron TIBC Albumin TSH Urine WBC (Auto) Urine Creatinine Crossmatch 07/22/16 07/23/16 07/23/16 20:24 05:19 12:10 WBC RBC Hgb Hct MCH RDW Plt Count Lymph % (Auto) [place] % (Auto) Lymph # [place] # Seg Neutrophils % Seg Neuts % (Manual) Lymphocytes % (Manual) Seg Neutrophils # Seg Neutrophils # Man Lymphocytes # (Manual) D-Dimer POC ABG pH POC ABG pCO2 POC ABG pO2 Sodium Potassium Chloride Carbon Dioxide BUN Creatinine Glucose POC Glucose 213 H 319 H 261 H Calcium Phosphorus Iron TIBC Albumin TSH Urine WBC (Auto) Urine Creatinine Crossmatch 07/23/16 07/23/16 07/24/16 15:49 20:58 05:29 WBC RBC Hgb Hct MCH RDW Plt Count Lymph % (Auto) Castro % (Auto) Lymph # Castro # Seg Neutrophils % Seg Neuts % (Manual) Lymphocytes % (Manual) Seg Neutrophils # Seg Neutrophils # Man Lymphocytes # (Manual) D-Dimer POC ABG pH POC ABG pCO2 POC ABG pO2 Sodium Potassium Chloride Carbon Dioxide BUN Creatinine Glucose POC Glucose 271 H 191 H 279 H Calcium Phosphorus Iron TIBC Albumin TSH Urine WBC (Auto) Urine Creatinine Crossmatch 07/24/16 07/24/16 07/24/16 05:53 16:20 21:31 WBC RBC Hgb Hct MCH RDW Plt Count Lymph % (Auto) Castro % (Auto) Lymph # Castro # Seg Neutrophils % Seg Neuts % (Manual) Lymphocytes % (Manual) Seg Neutrophils # Seg Neutrophils # Man Lymphocytes # (Manual) D-Dimer POC ABG pH POC ABG pCO2 POC ABG pO2 Sodium Potassium Chloride Carbon Dioxide BUN 89 H Creatinine 5.3 H Glucose 273 H POC Glucose 161 H 136 H Calcium 6.2 L Phosphorus Iron TIBC Albumin TSH Urine WBC (Auto) Urine Creatinine Crossmatch 07/25/16 07/25/16 07/25/16 06:25 11:56 16:10 WBC RBC Hgb Hct MCH RDW Plt Count Lymph % (Auto) Castro % (Auto) Lymph # Castro # Seg Neutrophils % Seg Neuts % (Manual) Lymphocytes % (Manual) Seg Neutrophils # Seg Neutrophils # Man Lymphocytes # (Manual) D-Dimer POC ABG pH POC ABG pCO2 POC ABG pO2 Sodium Potassium Chloride Carbon Dioxide BUN Creatinine Glucose POC Glucose 311 H 164 H 249 H Calcium Phosphorus Iron TIBC Albumin TSH Urine WBC (Auto) Urine Creatinine Crossmatch 07/25/16 07/26/16 07/26/16 21:13 06:19 11:31 WBC RBC Hgb Hct MCH RDW Plt Count Lymph % (Auto) [place] % (Auto) Lymph # [place] # Seg Neutrophils % Seg Neuts % (Manual) Lymphocytes % (Manual) Seg Neutrophils # Seg Neutrophils # Man Lymphocytes # (Manual) D-Dimer POC ABG pH POC ABG pCO2 POC ABG pO2 Sodium Potassium Chloride Carbon Dioxide BUN Creatinine Glucose POC Glucose 194 H 280 H 191 H Calcium Phosphorus Iron TIBC Albumin TSH Urine WBC (Auto) Urine Creatinine Crossmatch 07/26/16 07/26/16 07/26/16 12:50 12:50 13:02 WBC RBC 2.35 L Hgb 6.5 L Hct 20.0 L MCH RDW 18.4 H Plt Count 135 L Lymph % (Auto) 7.7 L Castro % (Auto) Lymph # 0.6 L [place] # Seg Neutrophils % 86.8 H Seg Neuts % (Manual) Lymphocytes % (Manual) Seg Neutrophils # Seg Neutrophils # Man Lymphocytes # (Manual) D-Dimer POC ABG pH 7.523 H POC ABG pCO2 31.3 L POC ABG pO2 Sodium Potassium Chloride Carbon Dioxide BUN 67 H Creatinine 4.9 H Glucose 139 H POC Glucose Calcium 6.1 L Phosphorus Iron TIBC Albumin TSH Urine WBC (Auto) Urine Creatinine Crossmatch 07/26/16 07/26/16 07/26/16 15:10 16:11 23:25 WBC RBC Hgb Hct MCH RDW Plt Count Lymph % (Auto) [place] % (Auto) Lymph # [place] # Seg Neutrophils % Seg Neuts % (Manual) Lymphocytes % (Manual) Seg Neutrophils # Seg Neutrophils # Man Lymphocytes # (Manual) D-Dimer POC ABG pH POC ABG pCO2 POC ABG pO2 Sodium Potassium Chloride Carbon Dioxide BUN Creatinine Glucose POC Glucose 204 H 115 H Calcium Phosphorus Iron TIBC Albumin TSH Urine WBC (Auto) Urine Creatinine Crossmatch See Detail 07/27/16 07/27/16 07/27/16 06:39 09:28 09:28 WBC RBC 3.30 L Hgb 9.4 L Hct 28.5 L D MCH RDW 16.5 H Plt Count 115 L Lymph % (Auto) [place] % (Auto) Lymph # [place] # Seg Neutrophils % 78.0 H Seg Neuts % (Manual) Lymphocytes % (Manual) Seg Neutrophils # 8.2 H Seg Neutrophils # Man Lymphocytes # (Manual) D-Dimer POC ABG pH POC ABG pCO2 POC ABG pO2 Sodium Potassium 2.6 L* D Chloride 97.7 L Carbon Dioxide BUN 36 H Creatinine 2.9 H Glucose 157 H POC Glucose 194 H Calcium 6.8 L Phosphorus Iron TIBC Albumin TSH Urine WBC (Auto) Urine Creatinine Crossmatch 07/27/16 07/27/16 07/28/16 11:06 21:17 05:56 WBC RBC Hgb Hct MCH RDW Plt Count Lymph % (Auto) [place] % (Auto) Lymph # [place] # Seg Neutrophils % Seg Neuts % (Manual) Lymphocytes % (Manual) Seg Neutrophils # Seg Neutrophils # Man Lymphocytes # (Manual) D-Dimer POC ABG pH POC ABG pCO2 POC ABG pO2 Sodium Potassium 3.2 L D Chloride Carbon Dioxide BUN 46 H Creatinine 3.5 H Glucose 205 H POC Glucose 145 H 121 H Calcium 6.8 L Phosphorus Iron TIBC Albumin TSH Urine WBC (Auto) Urine Creatinine Crossmatch 07/28/16 07/28/16 07/28/16 05:56 11:12 17:21 WBC RBC Hgb 9.1 L Hct 28.0 L MCH RDW Plt Count Lymph % (Auto) [place] % (Auto) Lymph # [place] # Seg Neutrophils % Seg Neuts % (Manual) Lymphocytes % (Manual) Seg Neutrophils # Seg Neutrophils # Man Lymphocytes # (Manual) D-Dimer POC ABG pH POC ABG pCO2 POC ABG pO2 Sodium Potassium Chloride Carbon Dioxide BUN Creatinine Glucose POC Glucose 125 H 157 H Calcium Phosphorus Iron TIBC Albumin TSH Urine WBC (Auto) Urine Creatinine Crossmatch 07/28/16 07/29/16 07/29/16 21:46 12:10 15:52 WBC RBC Hgb Hct MCH RDW Plt Count Lymph % (Auto) [place] % (Auto) Lymph # [place] # Seg Neutrophils % Seg Neuts % (Manual) Lymphocytes % (Manual) Seg Neutrophils # Seg Neutrophils # Man Lymphocytes # (Manual) D-Dimer POC ABG pH POC ABG pCO2 POC ABG pO2 Sodium Potassium Chloride Carbon Dioxide BUN Creatinine Glucose POC Glucose 190 H 169 H 145 H Calcium Phosphorus Iron TIBC Albumin TSH Urine WBC (Auto) Urine Creatinine Crossmatch 07/29/16 07/30/16 07/30/16 23:56 00:15 05:38 WBC RBC Hgb 8.5 L Hct 26.4 L MCH RDW Plt Count Lymph % (Auto) [place] % (Auto) Lymph # [place] # Seg Neutrophils % Seg Neuts % (Manual) Lymphocytes % (Manual) Seg Neutrophils # Seg Neutrophils # Man Lymphocytes # (Manual) D-Dimer POC ABG pH POC ABG pCO2 POC ABG pO2 Sodium Potassium Chloride Carbon Dioxide BUN Creatinine Glucose POC Glucose 166 H Calcium Phosphorus Iron 23 L TIBC 142 L Albumin TSH Urine WBC (Auto) Urine Creatinine Crossmatch 07/30/16 07/30/16 07/30/16 05:38 06:19 11:25 WBC RBC Hgb Hct MCH RDW Plt Count Lymph % (Auto) [place] % (Auto) Lymph # [place] # Seg Neutrophils % Seg Neuts % (Manual) Lymphocytes % (Manual) Seg Neutrophils # Seg Neutrophils # Man Lymphocytes # (Manual) D-Dimer POC ABG pH POC ABG pCO2 POC ABG pO2 Sodium Potassium Chloride Carbon Dioxide BUN 40 H Creatinine 3.5 H Glucose 151 H POC Glucose 167 H 117 H Calcium 7.1 L Phosphorus Iron TIBC Albumin TSH Urine WBC (Auto) Urine Creatinine Crossmatch 07/30/16 07/30/16 07/31/16 16:29 22:12 06:34 WBC RBC Hgb Hct MCH RDW Plt Count Lymph % (Auto) [place] % (Auto) Lymph # [place] # Seg Neutrophils % Seg Neuts % (Manual) Lymphocytes % (Manual) Seg Neutrophils # Seg Neutrophils # Man Lymphocytes # (Manual) D-Dimer POC ABG pH POC ABG pCO2 POC ABG pO2 Sodium Potassium Chloride Carbon Dioxide BUN Creatinine Glucose POC Glucose 146 H 150 H 148 H Calcium Phosphorus Iron TIBC Albumin TSH Urine WBC (Auto) Urine Creatinine Crossmatch 07/31/16 07/31/16 07/31/16 08:16 08:16 11:26 WBC RBC Hgb 8.1 L Hct 24.9 L MCH RDW Plt Count Lymph % (Auto) [place] % (Auto) Lymph # [place] # Seg Neutrophils % Seg Neuts % (Manual) Lymphocytes % (Manual) Seg Neutrophils # Seg Neutrophils # Man Lymphocytes # (Manual) D-Dimer POC ABG pH POC ABG pCO2 POC ABG pO2 Sodium Potassium Chloride Carbon Dioxide BUN 52 H Creatinine 4.0 H Glucose 152 H POC Glucose 137 H Calcium 6.9 L Phosphorus Iron TIBC Albumin TSH Urine WBC (Auto) Urine Creatinine Crossmatch
[2016-08-01 02:55] LABS: Hematocrit 26.9 % (30.3-42.9); Hemoglobin 8.6 gm/dl (10.1-14.3); Mean Corpuscular HGB Conc 32 % (30-34); Mean Corpuscular Hemoglobin 28 pg (28-32); Mean Corpuscular Volume 87 fl (79-97); Platelet Count 107 K/mm3 (140-440); Red Blood Count 3.09 M/mm3 (3.65-5.03); Red Cell Distribution Width 16.5 % (13.2-15.2); White Blood Count 5.3 K/mm3 (4.5-11.0)
[2016-08-01 03:16] LABS: INR 0.97 (0.87-1.13)
[2016-08-01] MEDS: HEPARIN SUB-Q SCH ×3 (06:21→23:40)
[2016-08-01] MEDS: SYNTHROID PO SCH (06:21)
[2016-08-01] MEDS: APRESOLINE FEEDTUBE SCH ×3 (06:22→23:47)
[2016-08-01] MEDS: NOVOLOG SUB-Q SCH ×3 (08:37→17:13)
[2016-08-01] MEDS: NORMODYNE PO SCH ×3 (09:48→23:42)
[2016-08-01] MEDS: NEURONTIN PO SCH ×2 (09:49→23:40)
[2016-08-01] MEDS: NACL 0.9% 1000 ML 1,000 ML IV SCH ×2 (09:55→15:01)
--- NOTE | 2016-08-01 10:32 | Progress Note ---
Assessment and Plan - Patient Problems (1) Chronic renal insufficiency Current Visit: Yes Status: Acute Qualifiers: Chronic kidney disease stage: stage 4 (severe) Qualified Code(s): N18.4 - Chronic kidney disease, stage 4 (severe) Plan to address problem: Awaiting clarity on need for permanent access. once determined can create as appropriate. Subjective Date of service: 08/01/16 Principal diagnosis: Acute Respiratory Failure; Angioedema Interval history: stable, awaiting hemkodialysis placement Objective - Exam Narrative Exam: Permacath site clean. no bleeding. - Constitutional Vitals: Vital Signs - 12hr 07/31/16 08/01/16 23:49 08:00 Temperature 98.0 F 98.1 F Pulse Rate [ 86 78 Right Radial] Respiratory 22 22 Rate Blood Pressure 134/59 127/60 [Right Arm] O2 Sat by Pulse 100 100 Oximetry - Labs CBC & Chem 7: 08/01/16 02:49 07/31/16 08:16 Labs: Abnormal lab results 07/31/16 08/01/16 08/01/16 Range/Units 11:26 00:14 02:49 RBC 3.09 L (3.65-5.03) M/mm3 Hgb 8.6 L (10.1-14.3) gm/dl Hct 26.9 L (30.3-42.9) % RDW 16.5 H (13.2-15.2) % Plt Count 107 L (140-440) K/mm3 POC Glucose 137 H 172 H (70-105) 08/01/16 Range/Units 05:22 RBC (3.65-5.03) M/mm3 Hgb (10.1-14.3) gm/dl Hct (30.3-42.9) % RDW (13.2-15.2) % Plt Count (140-440) K/mm3 POC Glucose 140 H (70-105)
--- NOTE | 2016-08-01 10:58 | Progress Note ---
Assessment and Plan Assessment and plan: Severe hypokalemia * resolved after replacement * cont to monitor, she was hyperkalemic on admission Severe microcytic anemia * s/p 2 units of PRBC * stool for occult blood positive, GI following * Planned for EGD during PEG tube placement, likely tomorrow. I discussed with Dr. Amaya, GI * could be due to CKD Acute hypoxic respiratory failure * Resolved, s/p extubation, Off BiPAP * On oxygen support Angioedema with dysphagia * Patient is now extubated and doing well. * Repeat swallow study was unsuccessfull * For PEG placement today. 08/01/16 Urinary tract infection * Urine culture positive for Klebsiella * Treated with Rocephin, Acute renal failurevon CKD stage IV. * Etiology likely secondary to vasomotor nephropathy versus interstitial nephritis from initial treatment with Bactrim for UTI. * Patient is on hemodialysis, will need out pt HD set up Hyperkalemia. * improved after dialysis DM2 * Monitor blood glucose closely, SSI Toxic metabolic encephalopathy. * Continue to treat underlying causes. * Continue supportive care Hypothyroidism. * Continue Synthroid. Hypertension * Continue current antihypertensive and adjust medications as needed * Hydralazine when necessary Left upper extremity swelling. * Ultrasound showed SVT in the cephalic vein * conservative management History Interval history: non verbal, difficulty swallowing,, For PEG tube placement today Hospitalist Physical - Physical exam Narrative exam: Gen: Not in acute distress HEENT: Normocephalic, atraumatic, NG tube in Neck :supple, no JVD Lungs clear to auscultation bilaterally no crackles or wheeze Heart :S1 and S2 regular, no murmurs no gallop Abdomen:soft, nontender, nondistended, normal bowel sounds Ext: edema left upper ext Neuro: lethargic - Constitutional Vitals: Temp Pulse Resp BP Pulse Ox 98.1 F 78 22 127/60 100 08/01/16 08:00 08/01/16 08:00 08/01/16 08:00 08/01/16 08:00 08/01/16 08:00 General appearance: Present: no acute distress, obese Results - Labs CBC & Chem 7: 08/01/16 02:49 07/31/16 08:16 Labs: Laboratory Last Values WBC 5.3 K/mm3 (4.5-11.0) 08/01/16 02:49 RBC 3.09 M/mm3 (3.65-5.03) L 08/01/16 02:49 Hgb 8.6 gm/dl (10.1-14.3) L 08/01/16 02:49 Hct 26.9 % (30.3-42.9) L 08/01/16 02:49 MCV 87 fl (79-97) 08/01/16 02:49 MCH 28 pg (28-32) 08/01/16 02:49 MCHC 32 % (30-34) 08/01/16 02:49 RDW 16.5 % (13.2-15.2) H 08/01/16 02:49 Plt Count 107 K/mm3 (140-440) L 08/01/16 02:49 Lymph % (Auto) 14.1 % (13.4-35.0) 07/27/16 09:28 [place] % (Auto) 6.5 % (0.0-7.3) 07/27/16 09:28 Eos % (Auto) 1.1 % (0.0-4.3) 07/27/16 09:28 Baso % (Auto) 0.3 % (0.0-1.8) 07/27/16 09:28 Lymph # 1.5 K/mm3 (1.2-5.4) 07/27/16 09:28 [place] # 0.7 K/mm3 (0.0-0.8) 07/27/16 09:28 Eos # 0.1 K/mm3 (0.0-0.4) 07/27/16 09:28 Baso # 0.0 K/mm3 (0.0-0.1) 07/27/16 09:28 Add Manual Diff Complete 07/18/16 05:06 Total Counted 100 07/18/16 05:06 Seg Neutrophils % 78.0 % (40.0-70.0) H 07/27/16 09:28 Seg Neuts % (Manual) 80.0 % (40.0-70.0) H 07/18/16 05:06 Band Neutrophils % 4.0 % 07/18/16 05:06 Lymphocytes % (Manual) 10.0 % (13.4-35.0) L 07/18/16 05:06 Reactive Lymphs % (Man) 0 % 07/18/16 05:06 Monocytes % (Manual) 6.0 % (0.0-7.3) 07/18/16 05:06 Eosinophils % (Manual) 0 % (0.0-4.3) 07/17/16 06:52 Basophils % (Manual) 0 % (0.0-1.8) 07/17/16 06:52 Metamyelocytes % 0 % 07/18/16 05:06 Myelocytes % 0 % 07/18/16 05:06 Promyelocytes % 0 % 07/18/16 05:06 Blast Cells % 0 % 07/18/16 05:06 Nucleated RBC % Not Reportable 07/18/16 05:06 Seg Neutrophils # 8.2 K/mm3 (1.8-7.7) H 07/27/16 09:28 Seg Neutrophils # Man 6.9 K/mm3 (1.8-7.7) 07/18/16 05:06 Band Neutrophils # 0.3 K/mm3 07/18/16 05:06 Lymphocytes # (Manual) 0.9 K/mm3 (1.2-5.4) L 07/18/16 05:06 Abs React Lymphs (Man) 0.0 K/mm3 07/18/16 05:06 Monocytes # (Manual) 0.5 K/mm3 (0.0-0.8) 07/18/16 05:06 Eosinophils # (Manual) 0.0 K/mm3 (0.0-0.4) 07/18/16 05:06 Basophils # (Manual) 0.0 K/mm3 (0.0-0.1) 07/18/16 05:06 Metamyelocytes # 0.0 K/mm3 07/18/16 05:06 Myelocytes # 0.0 K/mm3 07/18/16 05:06 Promyelocytes # 0.0 K/mm3 07/18/16 05:06 Blast Cells # 0.0 K/mm3 07/18/16 05:06 WBC Morphology Not Reportable 07/18/16 05:06 Hypersegmented Neuts Not Reportable 07/18/16 05:06 Hyposegmented Neuts Not Reportable 07/18/16 05:06 Hypogranular Neuts Not Reportable 07/18/16 05:06 Smudge Cells Not Reportable 07/18/16 05:06 Toxic Granulation Not Reportable 07/18/16 05:06 Toxic Vacuolation Not Reportable 07/18/16 05:06 Dohle Bodies Not Reportable 07/18/16 05:06 Pelger-Huet Anomaly Not Reportable 07/18/16 05:06 Shagufta Rods Not Reportable 07/18/16 05:06 Platelet Estimate Not Reportable 07/18/16 05:06 Clumped Platelets Not Reportable 07/18/16 05:06 Plt Clumps, EDTA Not Reportable 07/18/16 05:06 Large Platelets Not Reportable 07/18/16 05:06 Giant Platelets Not Reportable 07/18/16 05:06 Platelet Satelliting Not Reportable 07/18/16 05:06 Plt Morphology Comment Not Reportable 07/18/16 05:06 RBC Morphology Not Reportable 07/18/16 05:06 Dimorphic RBCs Not Reportable 07/18/16 05:06 Polychromasia Not Reportable 07/18/16 05:06 Hypochromasia Not Reportable 07/18/16 05:06 Poikilocytosis Not Reportable 07/18/16 05:06 Anisocytosis 1+ 07/18/16 05:06 Microcytosis Not Reportable 07/18/16 05:06 Macrocytosis Not Reportable 07/18/16 05:06 Spherocytes Not Reportable 07/18/16 05:06 Pappenheimer Bodies Not Reportable 07/18/16 05:06 Sickle Cells Not Reportable 07/18/16 05:06 Target Cells Not Reportable 07/18/16 05:06 Tear Drop Cells Not Reportable 07/18/16 05:06 Ovalocytes Not Reportable 07/18/16 05:06 Helmet Cells Not Reportable 07/18/16 05:06 Pérez-[place] Bodies Not Reportable 07/18/16 05:06 [place] Rings Not Reportable 07/18/16 05:06 Radha Cells Not Reportable 07/18/16 05:06 Bite Cells Not Reportable 07/18/16 05:06 Crenated Cell Not Reportable 07/18/16 05:06 Elliptocytes Few 07/18/16 05:06 Acanthocytes (Spur) Not Reportable 07/18/16 05:06 Rouleaux Not Reportable 07/18/16 05:06 Hemoglobin C Crystals Not Reportable 07/18/16 05:06 Schistocytes Not Reportable 07/18/16 05:06 Malaria parasites Not Reportable 07/18/16 05:06 Kaushik Bodies Not Reportable 07/18/16 05:06 Hem Pathologist Commnt No 07/18/16 05:06 PT 12.8 Sec. (12.2-14.9) 08/01/16 02:49 INR 0.97 (0.87-1.13) 08/01/16 02:49 APTT 34.8 Sec. (24.2-36.6) 07/18/16 05:06 D-Dimer 751.80 ng/mlDDU (0-234) H 07/11/16 12:22 POC ABG pH 7.523 (7.35-7.45) H 07/26/16 13:02 POC ABG pCO2 31.3 (35-45) L 07/26/16 13:02 POC ABG pO2 96 (80-105) 07/26/16 13:02 POC ABG HCO3 25.7 07/26/16 13:02 POC ABG Total CO2 27 07/26/16 13:02 POC ABG O2 Sat 98 07/26/16 13:02 POC ABG Base Excess 3 07/26/16 13:02 FiO2 21 % 07/26/16 13:02 Sodium 141 mmol/L (137-145) 07/31/16 08:16 Potassium 4.2 mmol/L (3.6-5.0) 07/31/16 08:16 Chloride 103.7 mmol/L (98-107) 07/31/16 08:16 Carbon Dioxide 24 mmol/L (22-30) 07/31/16 08:16 Anion Gap 18 mmol/L 07/31/16 08:16 BUN 52 mg/dL (7-17) H 07/31/16 08:16 Creatinine 4.0 mg/dL (0.7-1.2) H 07/31/16 08:16 Estimated GFR 13 ml/min 07/31/16 08:16 BUN/Creatinine Ratio 13.00 % 07/31/16 08:16 Glucose 152 mg/dL (65-100) H 07/31/16 08:16 POC Glucose 140 (70-105) H 08/01/16 05:22 Hemoglobin A1c 5.6 % (4-6) 07/15/16 04:56 Lactic Acid 0.8 mmol/L (0.7-2.0) 07/19/16 00:37 Calcium 6.9 mg/dL (8.4-10.2) L 07/31/16 08:16 Phosphorus 5.2 mg/dL (2.5-4.5) H 07/17/16 06:52 Magnesium 1.9 mg/dL (1.7-2.3) 07/17/16 06:52 Iron 23 ug/dL (37-170) L 07/30/16 00:15 TIBC 142 mcg/dL (250-450) L 07/30/16 00:15 Total Bilirubin < 0.2 mg/dL (0.1-1.2) 07/10/16 06:43 AST 17 units/L (5-40) 07/10/16 06:43 ALT 9 units/L (7-56) 07/10/16 06:43 Alkaline Phosphatase 62 units/L (35-129) 07/10/16 06:43 Total Creatine Kinase 131 units/L (30-135) 07/11/16 12:22 CK-MB (CK-2) 2.0 ng/mL (0.0-4.0) 07/11/16 12:22 CK-MB (CK-2) Rel Index 1.5 (0-4) 07/11/16 12:22 Troponin T < 0.010 ng/mL (0.00-0.029) 07/11/16 12:22 Total Protein 6.7 g/dL (6.3-8.2) 07/10/16 06:43 Albumin 3.5 g/dL (3.9-5) L 07/10/16 06:43 Albumin/Globulin Ratio 1.1 % 07/10/16 06:43 TSH 8.090 mlU/mL (0.270-4.200) H 07/05/16 05:08 Urine Color Straw (Yellow) 07/06/16 01:18 Urine Turbidity Clear (Clear) 07/06/16 01:18 Urine pH 6.0 (5.0-7.0) 07/06/16 01:18 Ur Specific [place] 1.003 (1.003-1.030) 07/06/16 01:18 Urine Protein <15 mg/dl mg/dL (Negative) 07/06/16 01:18 Urine Glucose (UA) Neg mg/dL (Negative) 07/06/16 01:18 Urine Ketones Neg mg/dL (Negative) 07/06/16 01:18 Urine Blood Neg (Negative) 07/06/16 01:18 Urine Nitrite Neg (Negative) 07/06/16 01:18 Urine Bilirubin Neg (Negative) 07/06/16 01:18 Urine Urobilinogen < 2.0 mg/dL (<2.0) 07/06/16 01:18 Ur Leukocyte Esterase Mod (Negative) 07/06/16 01:18 Urine WBC (Auto) 7.0 /HPF (0.0-6.0) H 07/06/16 01:18 Urine RBC (Auto) 3.0 /HPF (0.0-6.0) 07/06/16 01:18 U Epithel Cells (Auto) 1.0 /HPF (0-13.0) 06/30/16 11:34 Urine Bacteria (Auto) 1+ /HPF (Negative) 06/30/16 11:34 Urine Eosinophils None seen (None Seen) 07/06/16 01:18 Urine Creatinine 36.6 mg/dL (0.1-20.0) H 07/06/16 01:18 Urine Microalbumin 6.5 mg/dL (0.1-34.0) 07/06/16 01:18 Microalb/Creat Ratio 177.5 ug/mg 07/06/16 01:18 Urine Sodium 28 mEq/L 07/06/16 01:18 Urine Opiates Screen Presumptive negative 06/30/16 11:34 Urine Methadone Screen Presumptive negative 06/30/16 11:34 Acetaminophen < 15.0 ug/mL (10.0-30.0) 06/30/16 12:01 Ur Barbiturates Screen Presumptive negative 06/30/16 11:34 Ur Phencyclidine Scrn Presumptive negative 06/30/16 11:34 Ur Amphetamines Screen Presumptive negative 06/30/16 11:34 U Benzodiazepines Scrn Presumptive negative 06/30/16 11:34 Urine Cocaine Screen Presumptive negative 06/30/16 11:34 U Marijuana (THC) Screen Presumptive negative 06/30/16 11:34 Drugs of Abuse Note Disclamer 06/30/16 11:34 Plasma/Serum Alcohol < 0.01 gm% (0-0.07) 06/30/16 12:01 Hepatitis A IgM Ab -1 (NonReactive) 07/16/16 19:08 Hep Bs Antigen Non-reactive (Negative) 07/16/16 19:08 Hep B Core IgM Ab Non-reactive (NonReactive) 07/16/16 19:08 Hepatitis C Antibody Non-reactive (NonReactive) 07/16/16 19:08 Blood Type O POSITIVE 07/26/16 15:10 Antibody Screen Negative 07/26/16 15:10 Crossmatch See Detail 07/26/16 15:10
[2016-08-01] MEDS: PEPCID PO SCH (12:22)
[2016-08-01] MEDS ORDERED: WATER FOR IRRIG STERILE IR ONE (14:04)
[2016-08-01] MEDS ORDERED: ANCEF/STERILE WATER 2 GM/20 ML 20 ML IV NR (15:00)
[2016-08-01] MEDS ORDERED: VERSED IV ONE ×3 (15:00→15:18)
[2016-08-01] MEDS ORDERED: SUBLIMAZE ONE (15:00)
[2016-08-01] MEDS ORDERED: SUBLIMAZE IV ONE (15:16)
--- NOTE | 2016-08-01 15:38 | Post Operative Note ---
Pre-op diagnosis: Oropharyngeal dysphagia Post-op diagnosis: other (Normal EGD, G-tube placed) Findings: 1. Normal EGD 2. Successful G-tube placement Procedure: EGD/PEG Anesthesia: MAC, other (Versed - 2 mg, Fentanyl - 25 mcg IV) Surgeon: ARNAUD ZULUAGA Estimated blood loss: none Pathology: none Condition: stable Disposition: floor
--- NOTE | 2016-08-01 16:57 | Operative Report ---
PROCEDURE: Upper endoscopy with G-tube placement. PREOPERATIVE DIAGNOSIS: Oropharyngeal dysphagia. POSTOPERATIVE DIAGNOSIS: Normal upper endoscopy, and successful G-tube placement. SEDATION: IV conscious using Versed 2 mg and fentanyl 25 mcg IV. HISTORY: The patient is a 70-year-old woman with dementia who has oropharyngeal dysphagia and has failed modified barium swallow. DESCRIPTION OF PROCEDURE: Indications, risks, and benefits were explained and consent was obtained from the patient's daughter. The patient was placed back on exam table and sedated. [employer] video upper scope was passed through the mouth and oropharynx into the descending duodenum. Scope was then gradually withdrawn with close inspection of mucosa into the gastric lumen. An appropriate location was transilluminated in the abdominal surface. This was prepped and draped in a sterile fashion and infiltrated with 3 mL of 1% Xylocaine. This was done in a safe track technique. Location was by transillumination and 1:1 ballottement. Then, a trocar was placed percutaneously into the gastric lumen and a guidewire was passed through this. This was grasped with a snare and pulled out the mouth. A 20 Albanian G-tube was attached to the wire at the mouth and pulled through the mouth and oropharynx into the gastric lumen and out the skin. External bumper was fixed at 3 cm. Placement was confirmed by repeat upper endoscopy. FINDINGS: 1. Normal upper endoscopy to the descending duodenum. 2. Successful 20 [place]ian G-tube placement. COMPLICATIONS: The patient tolerated the procedure well without immediate complications. ESTIMATED BLOOD LOSS: None. IMPRESSION: 1. Normal upper endoscopy. 2. Successful G-tube placement. PLAN: 1. Dietary consult. 2. Initiate tube feedings as appropriate. [facility]# [id number] HRC/NTS
--- NOTE | 2016-08-01 17:10 | Progress Note ---
Assessment and Plan - GABRIELA remains dialysis dependent. Possibly ESRD - ? Underlying CKD - Angioedema of tongue - UTI sec to Klebsiella - DM2 - Toxic metabolic encephalopathy, ?secondary to uremia. -Hypothyroidism. -Hypertension - SVT in the cephalic vein PLAN: - Continue HD MWF, next treatment in am. - Monitor renal function for recovery - Awaiting outpatient placement. - Consider removal of muse catheter. Subjective Date of service: 08/01/16 Principal diagnosis: Acute Respiratory Failure; Angioedema Interval history: Patient had PEG tube placed today. No CP or sob. No nausea or vomiting. No fever or chills Objective - Exam Narrative Exam: chronically ill, no distress EENT: PERRL, dry oral mucosa Neck: no JVD Respiratory:Unlaboured, Few coarse rales in both lung [place] Cardiology: regular, S1S2, No pericardial friction rub. No parasternal heave Gastrointestinal: Soft. BS+ PEG tube + Integumentary: Pallor+ Neurologic: other (Lethargic, moves all extremities. ) RIJ permcath+ Muse+ - Vital Signs Vital signs: Vital Signs - 12hr 08/01/16 08/01/16 08/01/16 08:00 14:45 15:35 Temperature 98.1 F 99.6 F 99.0 F Pulse Rate 73 84 Pulse Rate [ Left Radial] Pulse Rate [ 78 Right Radial] Respiratory 22 10 L 12 Rate Blood Pressure 162/63 149/61 Blood Pressure [Left Arm] Blood Pressure 127/60 [Right Arm] O2 Sat by Pulse 100 100 97 Oximetry 08/01/16 08/01/16 08/01/16 15:49 16:05 16:43 Temperature 99.5 F Pulse Rate 81 84 Pulse Rate [ 78 Left Radial] Pulse Rate [ Right Radial] Respiratory 11 L 14 12 Rate Blood Pressure 128/53 135/58 Blood Pressure 142/66 [Left Arm] Blood Pressure [Right Arm] O2 Sat by Pulse 96 96 100 Oximetry - Lab 08/01/16 02:49 07/31/16 08:16 Most recent lab results Calcium 6.9 mg/dL (8.4-10.2) L 07/31/16 08:16 Phosphorus 5.2 mg/dL (2.5-4.5) H 07/17/16 06:52 Magnesium 1.9 mg/dL (1.7-2.3) 07/17/16 06:52 Urine Creatinine 36.6 mg/dL (0.1-20.0) H 07/06/16 01:18 Urine Sodium 28 mEq/L 07/06/16 01:18
--- NOTE | 2016-08-01 21:54 | Progress Note ---
Assessment and Plan Patient sleeping and on 2 litres O2. O2 satuaration 100%. No respiratory distress. No change in patients condition. - Patient Problems (1) Angioedema Current Visit: Yes Status: Acute Plan to address problem: Improved. (2) GABRIELA (acute kidney injury) Current Visit: Yes Status: Acute Plan to address problem: Patient is on dialysis. Mangement as per nephrology. (3) Encephalopathy acute Current Visit: Yes Status: Chronic Plan to address problem: Management as per primary care. (4) Hypertension Current Visit: Yes Status: Acute Plan to address problem: Management as per primary care. (5) Diabetes Current Visit: No Status: Acute Qualifiers: Diabetes mellitus type: type 2 Diabetes mellitus complication status: with kidney complications Diabetes mellitus complication detail: with chronic kidney disease Plan to address problem: Management as per primary care. (6) Bipolar disorder Current Visit: No Status: Acute Qualifiers: Active/Remission status: remission status unspecified Most recent bipolar episode type: most recent episode unspecified type Plan to address problem: Management as per primary care and psychiatry. Subjective Date of service: 08/01/16 Principal diagnosis: Acute Respiratory Failure; Angioedema Interval history: Patient sleeping and on 2 litres O2.O2 satuaration 100% No respiratory distress.No change in patients condition. Objective Vital Signs - 12hr 08/01/16 08/01/16 08/01/16 14:45 15:35 15:49 Temperature 99.6 F 99.0 F Pulse Rate 73 84 81 Pulse Rate [ Left Radial] Respiratory 10 L 12 11 L Rate Blood Pressure 162/63 149/61 128/53 Blood Pressure [Left Arm] O2 Sat by Pulse 100 97 96 Oximetry 08/01/16 08/01/16 16:05 16:43 Temperature 99.5 F Pulse Rate 84 Pulse Rate [ 78 Left Radial] Respiratory 14 12 Rate Blood Pressure 135/58 Blood Pressure 142/66 [Left Arm] O2 Sat by Pulse 96 100 Oximetry Constitutional: no acute distress, asleep, other (does not localize to sternal rub) Eyes: non-icteric ENT: oropharynx moist Neck: supple, no lymphadenopathy Effort: normal Ascultation: Bilateral: clear, diminished breath sounds (bases) Cardiovascular: regular rate and rhythm Gastrointestinal: normoactive bowel sounds, soft, non-tender, non-distended Integumentary: normal Extremities: no cyanosis, no edema, pulses normal, no ischemia or petechiae Neurologic: non-focal exam (grossly), pupils equal and round, CN II-XII normal Psychiatric: other (somnolent) CBC and BMP: 08/01/16 02:49 07/31/16 08:16 ABG, PT/INR, D-dimer: ABG POC ABG pH 7.523 (7.35-7.45) H 07/26/16 13:02 POC ABG pCO2 31.3 (35-45) L 07/26/16 13:02 POC ABG pO2 96 (80-105) 07/26/16 13:02 POC ABG HCO3 25.7 07/26/16 13:02 POC ABG Total CO2 27 07/26/16 13:02 POC ABG O2 Sat 98 07/26/16 13:02 PT/INR, D-dimer PT 12.8 Sec. (12.2-14.9) 08/01/16 02:49 INR 0.97 (0.87-1.13) 08/01/16 02:49 D-Dimer 751.80 ng/mlDDU (0-234) H 07/11/16 12:22 Abnormal lab findings: Abnormal Labs 07/03/16 07/03/16 07/04/16 14:34 14:34 06:21 WBC 3.9 L RBC 3.16 L 3.04 L Hgb 8.5 L 8.0 L Hct 26.8 L 25.6 L MCH 27 L 26 L RDW 16.5 H 16.2 H Plt Count Lymph % (Auto) [place] % (Auto) 10.7 H 10.7 H Lymph # 1.0 L [place] # Seg Neutrophils % Seg Neuts % (Manual) Lymphocytes % (Manual) Seg Neutrophils # Seg Neutrophils # Man Lymphocytes # (Manual) D-Dimer POC ABG pH POC ABG pCO2 POC ABG pO2 Sodium Potassium Chloride 107.6 H Carbon Dioxide BUN 27 H Creatinine 2.6 H Glucose POC Glucose Calcium 8.0 L Phosphorus Iron TIBC Albumin TSH Urine WBC (Auto) Urine Creatinine Crossmatch 07/04/16 07/04/16 07/04/16 06:21 11:30 16:33 WBC RBC Hgb Hct MCH RDW Plt Count Lymph % (Auto) [place] % (Auto) Lymph # [place] # Seg Neutrophils % Seg Neuts % (Manual) Lymphocytes % (Manual) Seg Neutrophils # Seg Neutrophils # Man Lymphocytes # (Manual) D-Dimer POC ABG pH POC ABG pCO2 POC ABG pO2 Sodium Potassium Chloride 107.4 H Carbon Dioxide 21 L BUN 27 H Creatinine 2.7 H Glucose POC Glucose 110 H 106 H Calcium 7.8 L Phosphorus Iron TIBC Albumin TSH Urine WBC (Auto) Urine Creatinine Crossmatch 07/05/16 07/05/16 07/05/16 05:08 05:08 05:08 WBC 4.0 L RBC 2.87 L Hgb 7.7 L Hct 24.2 L MCH 27 L RDW 16.0 H Plt Count Lymph % (Auto) [place] % (Auto) Lymph # [place] # Seg Neutrophils % Seg Neuts % (Manual) Lymphocytes % (Manual) Seg Neutrophils # Seg Neutrophils # Man Lymphocytes # (Manual) D-Dimer POC ABG pH POC ABG pCO2 POC ABG pO2 Sodium Potassium Chloride Carbon Dioxide 21 L BUN 32 H Creatinine 3.7 H Glucose POC Glucose Calcium 7.8 L Phosphorus Iron TIBC Albumin TSH 8.090 H Urine WBC (Auto) Urine Creatinine Crossmatch 07/05/16 07/06/16 07/06/16 11:45 01:18 01:18 WBC RBC Hgb 8.3 L Hct 25.9 L MCH RDW Plt Count Lymph % (Auto) [place] % (Auto) Lymph # [place] # Seg Neutrophils % Seg Neuts % (Manual) Lymphocytes % (Manual) Seg Neutrophils # Seg Neutrophils # Man Lymphocytes # (Manual) D-Dimer POC ABG pH POC ABG pCO2 POC ABG pO2 Sodium Potassium Chloride Carbon Dioxide BUN Creatinine Glucose POC Glucose Calcium Phosphorus Iron TIBC Albumin TSH Urine WBC (Auto) 7.0 H Urine Creatinine 36.6 H Crossmatch 07/06/16 07/06/16 07/06/16 05:55 05:55 16:07 WBC 3.0 L RBC 2.79 L Hgb 7.5 L Hct 23.5 L MCH 27 L RDW 16.5 H Plt Count Lymph % (Auto) [place] % (Auto) Lymph # [place] # Seg Neutrophils % Seg Neuts % (Manual) Lymphocytes % (Manual) Seg Neutrophils # Seg Neutrophils # Man Lymphocytes # (Manual) D-Dimer POC ABG pH POC ABG pCO2 POC ABG pO2 Sodium Potassium Chloride 109.3 H Carbon Dioxide 20 L BUN 32 H Creatinine 3.4 H Glucose POC Glucose 117 H Calcium 7.5 L Phosphorus Iron TIBC Albumin TSH Urine WBC (Auto) Urine Creatinine Crossmatch 07/07/16 07/07/16 07/08/16 06:19 16:13 00:09 WBC RBC Hgb Hct MCH RDW Plt Count Lymph % (Auto) [place] % (Auto) Lymph # [place] # Seg Neutrophils % Seg Neuts % (Manual) Lymphocytes % (Manual) Seg Neutrophils # Seg Neutrophils # Man Lymphocytes # (Manual) D-Dimer POC ABG pH POC ABG pCO2 POC ABG pO2 Sodium Potassium Chloride 111.1 H Carbon Dioxide 20 L BUN 31 H Creatinine 3.1 H Glucose POC Glucose 108 H 134 H Calcium 8.0 L Phosphorus Iron TIBC Albumin TSH Urine WBC (Auto) Urine Creatinine Crossmatch 07/08/16 07/08/16 07/08/16 11:39 16:31 21:22 WBC RBC Hgb Hct MCH RDW Plt Count Lymph % (Auto) [place] % (Auto) Lymph # [place] # Seg Neutrophils % Seg Neuts % (Manual) Lymphocytes % (Manual) Seg Neutrophils # Seg Neutrophils # Man Lymphocytes # (Manual) D-Dimer POC ABG pH POC ABG pCO2 POC ABG pO2 Sodium Potassium Chloride Carbon Dioxide BUN Creatinine Glucose POC Glucose 119 H 130 H 152 H Calcium Phosphorus Iron TIBC Albumin TSH Urine WBC (Auto) Urine Creatinine Crossmatch 07/09/16 07/09/16 07/09/16 05:52 05:52 06:02 WBC RBC 3.55 L Hgb 9.4 L Hct MCH 27 L RDW 17.1 H Plt Count Lymph % (Auto) [place] % (Auto) Lymph # [place] # Seg Neutrophils % Seg Neuts % (Manual) Lymphocytes % (Manual) Seg Neutrophils # Seg Neutrophils # Man Lymphocytes # (Manual) D-Dimer POC ABG pH POC ABG pCO2 POC ABG pO2 Sodium 147 H Potassium 5.4 H Chloride 112.8 H Carbon Dioxide 21 L BUN 30 H Creatinine 2.5 H Glucose 21 L* POC Glucose < 40 L Calcium Phosphorus Iron TIBC Albumin TSH Urine WBC (Auto) Urine Creatinine Crossmatch 07/09/16 07/09/16 07/10/16 11:31 16:50 05:23 WBC RBC Hgb Hct MCH RDW Plt Count Lymph % (Auto) [place] % (Auto) Lymph # [place] # Seg Neutrophils % Seg Neuts % (Manual) Lymphocytes % (Manual) Seg Neutrophils # Seg Neutrophils # Man Lymphocytes # (Manual) D-Dimer POC ABG pH POC ABG pCO2 POC ABG pO2 Sodium Potassium Chloride Carbon Dioxide BUN Creatinine Glucose POC Glucose 114 H 149 H < 40 L Calcium Phosphorus Iron TIBC Albumin TSH Urine WBC (Auto) Urine Creatinine Crossmatch 07/10/16 07/10/16 07/10/16 06:03 06:43 06:43 WBC RBC 2.90 L Hgb 7.7 L Hct 25.0 L MCH 27 L RDW 17.0 H Plt Count Lymph % (Auto) [place] % (Auto) 10.4 H Lymph # 1.1 L [place] # Seg Neutrophils % Seg Neuts % (Manual) Lymphocytes % (Manual) Seg Neutrophils # Seg Neutrophils # Man Lymphocytes # (Manual) D-Dimer POC ABG pH POC ABG pCO2 POC ABG pO2 Sodium 148 H Potassium 5.1 H Chloride 111.7 H Carbon Dioxide 20 L BUN 31 H Creatinine 2.4 H Glucose POC Glucose 211 H Calcium 8.0 L Phosphorus Iron TIBC Albumin 3.5 L TSH Urine WBC (Auto) Urine Creatinine Crossmatch 07/10/16 07/11/16 07/11/16 14:55 05:37 05:47 WBC RBC Hgb 7.9 L Hct 25.5 L MCH RDW Plt Count Lymph % (Auto) [place] % (Auto) Lymph # [place] # Seg Neutrophils % Seg Neuts % (Manual) Lymphocytes % (Manual) Seg Neutrophils # Seg Neutrophils # Man Lymphocytes # (Manual) D-Dimer POC ABG pH POC ABG pCO2 POC ABG pO2 Sodium Potassium Chloride Carbon Dioxide BUN Creatinine Glucose POC Glucose < 40 L > 500 H Calcium Phosphorus Iron TIBC Albumin TSH Urine WBC (Auto) Urine Creatinine Crossmatch 07/11/16 07/11/16 07/11/16 05:56 07:42 07:48 WBC RBC Hgb Hct MCH RDW Plt Count Lymph % (Auto) [place] % (Auto) Lymph # [place] # Seg Neutrophils % Seg Neuts % (Manual) Lymphocytes % (Manual) Seg Neutrophils # Seg Neutrophils # Man Lymphocytes # (Manual) D-Dimer POC ABG pH POC ABG pCO2 POC ABG pO2 Sodium Potassium Chloride Carbon Dioxide BUN Creatinine Glucose POC Glucose 262 H 56 L 54 L Calcium Phosphorus Iron TIBC Albumin TSH Urine WBC (Auto) Urine Creatinine Crossmatch 07/11/16 07/11/16 07/11/16 08:34 08:50 09:53 WBC RBC Hgb Hct MCH RDW Plt Count Lymph % (Auto) [place] % (Auto) Lymph # [place] # Seg Neutrophils % Seg Neuts % (Manual) Lymphocytes % (Manual) Seg Neutrophils # Seg Neutrophils # Man Lymphocytes # (Manual) D-Dimer POC ABG pH POC ABG pCO2 31.1 L POC ABG pO2 108 H Sodium Potassium Chloride Carbon Dioxide BUN Creatinine Glucose POC Glucose 110 H 68 L Calcium Phosphorus Iron TIBC Albumin TSH Urine WBC (Auto) Urine Creatinine Crossmatch 07/11/16 07/11/16 07/11/16 11:48 12:22 12:22 WBC 11.6 H RBC Hgb Hct MCH 27 L RDW 17.2 H Plt Count Lymph % (Auto) [place] % (Auto) Lymph # [place] # Seg Neutrophils % Seg Neuts % (Manual) 91.0 H Lymphocytes % (Manual) 5.0 L Seg Neutrophils # 10.8 H Seg Neutrophils # Man 10.6 H Lymphocytes # (Manual) 0.6 L D-Dimer 751.80 H POC ABG pH POC ABG pCO2 POC ABG pO2 Sodium Potassium Chloride Carbon Dioxide BUN Creatinine Glucose POC Glucose 118 H Calcium Phosphorus Iron TIBC Albumin TSH Urine WBC (Auto) Urine Creatinine Crossmatch 07/11/16 07/11/16 07/11/16 12:22 12:29 15:23 WBC RBC Hgb Hct MCH RDW Plt Count Lymph % (Auto) [place] % (Auto) Lymph # [place] # Seg Neutrophils % Seg Neuts % (Manual) Lymphocytes % (Manual) Seg Neutrophils # Seg Neutrophils # Man Lymphocytes # (Manual) D-Dimer POC ABG pH POC ABG pCO2 28.4 L POC ABG pO2 Sodium Potassium 6.1 H* Chloride 109.4 H Carbon Dioxide 18 L BUN 30 H Creatinine 2.1 H Glucose 126 H POC Glucose 204 H Calcium Phosphorus Iron TIBC Albumin TSH Urine WBC (Auto) Urine Creatinine Crossmatch 07/11/16 07/11/16 07/11/16 17:27 17:55 21:42 WBC RBC Hgb Hct MCH RDW Plt Count Lymph % (Auto) [place] % (Auto) Lymph # [place] # Seg Neutrophils % Seg Neuts % (Manual) Lymphocytes % (Manual) Seg Neutrophils # Seg Neutrophils # Man Lymphocytes # (Manual) D-Dimer POC ABG pH POC ABG pCO2 POC ABG pO2 Sodium 146 H Potassium 6.5 H* Chloride 109.7 H Carbon Dioxide 20 L BUN 32 H Creatinine 2.4 H Glucose 167 H POC Glucose 433 H 142 H Calcium Phosphorus Iron TIBC Albumin TSH Urine WBC (Auto) Urine Creatinine Crossmatch 07/12/16 07/12/16 07/12/16 04:34 04:34 05:22 WBC 14.0 H RBC Hgb Hct MCH 27 L RDW 17.6 H Plt Count 113 L Lymph % (Auto) [place] % (Auto) Lymph # [place] # Seg Neutrophils % Seg Neuts % (Manual) 87.0 H Lymphocytes % (Manual) 11.0 L Seg Neutrophils # Seg Neutrophils # Man 12.2 H Lymphocytes # (Manual) D-Dimer POC ABG pH 7.452 H POC ABG pCO2 29.6 L POC ABG pO2 Sodium Potassium 6.8 H* Chloride 110.2 H Carbon Dioxide 16 L BUN 43 H Creatinine 2.9 H Glucose 113 H POC Glucose Calcium Phosphorus Iron TIBC Albumin TSH Urine WBC (Auto) Urine Creatinine Crossmatch 07/12/16 07/12/16 07/12/16 13:24 17:28 21:11 WBC RBC Hgb Hct MCH RDW Plt Count Lymph % (Auto) [place] % (Auto) Lymph # [place] # Seg Neutrophils % Seg Neuts % (Manual) Lymphocytes % (Manual) Seg Neutrophils # Seg Neutrophils # Man Lymphocytes # (Manual) D-Dimer POC ABG pH POC ABG pCO2 POC ABG pO2 Sodium 150 H Potassium Chloride 108.9 H Carbon Dioxide 21 L BUN 52 H Creatinine 3.7 H Glucose 143 H POC Glucose 148 H 134 H Calcium 8.0 L Phosphorus Iron TIBC Albumin TSH Urine WBC (Auto) Urine Creatinine Crossmatch 07/12/16 07/13/16 07/13/16 21:50 04:40 04:40 WBC 14.0 H RBC 3.50 L Hgb 9.3 L Hct 29.3 L MCH 27 L RDW 17.3 H Plt Count Lymph % (Auto) 4.9 L [place] % (Auto) Lymph # 0.7 L [place] # Seg Neutrophils % 90.0 H Seg Neuts % (Manual) 93.0 H Lymphocytes % (Manual) 5.0 L Seg Neutrophils # 12.6 H Seg Neutrophils # Man 13.0 H Lymphocytes # (Manual) 0.7 L D-Dimer POC ABG pH POC ABG pCO2 POC ABG pO2 Sodium 151 H Potassium Chloride 109.3 H Carbon Dioxide BUN 59 H Creatinine 4.0 H Glucose 63 L POC Glucose 156 H Calcium 7.7 L Phosphorus Iron TIBC Albumin TSH Urine WBC (Auto) Urine Creatinine Crossmatch 07/13/16 07/13/16 07/13/16 06:10 06:40 08:03 WBC RBC Hgb Hct MCH RDW Plt Count Lymph % (Auto) [place] % (Auto) Lymph # [place] # Seg Neutrophils % Seg Neuts % (Manual) Lymphocytes % (Manual) Seg Neutrophils # Seg Neutrophils # Man Lymphocytes # (Manual) D-Dimer POC ABG pH POC ABG pCO2 POC ABG pO2 Sodium Potassium Chloride Carbon Dioxide BUN Creatinine Glucose POC Glucose 68 L 176 H 141 H Calcium Phosphorus Iron TIBC Albumin TSH Urine WBC (Auto) Urine Creatinine Crossmatch 07/13/16 07/13/16 07/13/16 09:17 12:30 14:15 WBC RBC Hgb Hct MCH RDW Plt Count Lymph % (Auto) [place] % (Auto) Lymph # [place] # Seg Neutrophils % Seg Neuts % (Manual) Lymphocytes % (Manual) Seg Neutrophils # Seg Neutrophils # Man Lymphocytes # (Manual) D-Dimer POC ABG pH 7.475 H 7.529 H POC ABG pCO2 33.4 L 26.8 L POC ABG pO2 110 H 70 L Sodium Potassium Chloride Carbon Dioxide BUN Creatinine Glucose POC Glucose 177 H Calcium Phosphorus Iron TIBC Albumin TSH Urine WBC (Auto) Urine Creatinine Crossmatch 07/13/16 07/13/16 07/13/16 15:28 17:57 22:10 WBC RBC Hgb Hct MCH RDW Plt Count Lymph % (Auto) [place] % (Auto) Lymph # [place] # Seg Neutrophils % Seg Neuts % (Manual) Lymphocytes % (Manual) Seg Neutrophils # Seg Neutrophils # Man Lymphocytes # (Manual) D-Dimer POC ABG pH POC ABG pCO2 POC ABG pO2 Sodium Potassium Chloride Carbon Dioxide BUN Creatinine Glucose POC Glucose 122 H 166 H 197 H Calcium Phosphorus Iron TIBC Albumin TSH Urine WBC (Auto) Urine Creatinine Crossmatch 07/14/16 07/14/16 07/14/16 02:00 04:21 04:21 WBC RBC 3.01 L Hgb 8.1 L Hct 25.3 L MCH 27 L RDW 17.9 H Plt Count Lymph % (Auto) 6.1 L [place] % (Auto) Lymph # 0.5 L [place] # Seg Neutrophils % 89.9 H Seg Neuts % (Manual) Lymphocytes % (Manual) Seg Neutrophils # Seg Neutrophils # Man Lymphocytes # (Manual) D-Dimer POC ABG pH POC ABG pCO2 POC ABG pO2 Sodium 150 H Potassium Chloride 107.3 H Carbon Dioxide 21 L BUN 82 H Creatinine 4.8 H Glucose 176 H POC Glucose 166 H Calcium 6.8 L Phosphorus Iron TIBC Albumin TSH Urine WBC (Auto) Urine Creatinine Crossmatch 07/14/16 07/14/16 07/14/16 05:32 09:42 22:32 WBC RBC Hgb Hct MCH RDW Plt Count Lymph % (Auto) [place] % (Auto) Lymph # [place] # Seg Neutrophils % Seg Neuts % (Manual) Lymphocytes % (Manual) Seg Neutrophils # Seg Neutrophils # Man Lymphocytes # (Manual) D-Dimer POC ABG pH POC ABG pCO2 POC ABG pO2 Sodium Potassium Chloride Carbon Dioxide BUN Creatinine Glucose POC Glucose 202 H 216 H 191 H Calcium Phosphorus Iron TIBC Albumin TSH Urine WBC (Auto) Urine Creatinine Crossmatch 07/15/16 07/15/16 07/15/16 04:46 04:56 04:56 WBC RBC 3.04 L Hgb 8.2 L Hct 25.8 L MCH 27 L RDW 17.3 H Plt Count Lymph % (Auto) 4.2 L [place] % (Auto) 11.8 H Lymph # 0.4 L [place] # 1.1 H Seg Neutrophils % 83.9 H Seg Neuts % (Manual) Lymphocytes % (Manual) Seg Neutrophils # Seg Neutrophils # Man Lymphocytes # (Manual) D-Dimer POC ABG pH POC ABG pCO2 POC ABG pO2 Sodium 147 H Potassium 3.4 L Chloride Carbon Dioxide 20 L BUN 109 H Creatinine 5.2 H Glucose 242 H POC Glucose 275 H Calcium 6.3 L Phosphorus Iron TIBC Albumin TSH Urine WBC (Auto) Urine Creatinine Crossmatch 07/15/16 07/15/16 07/15/16 11:32 16:52 20:41 WBC RBC Hgb Hct MCH RDW Plt Count Lymph % (Auto) [place] % (Auto) Lymph # [place] # Seg Neutrophils % Seg Neuts % (Manual) Lymphocytes % (Manual) Seg Neutrophils # Seg Neutrophils # Man Lymphocytes # (Manual) D-Dimer POC ABG pH POC ABG pCO2 POC ABG pO2 Sodium Potassium Chloride Carbon Dioxide BUN Creatinine Glucose POC Glucose 250 H 195 H 219 H Calcium Phosphorus Iron TIBC Albumin TSH Urine WBC (Auto) Urine Creatinine Crossmatch 07/16/16 07/16/16 07/16/16 00:37 05:47 09:54 WBC RBC 3.20 L Hgb 8.6 L Hct 27.3 L MCH 27 L RDW 17.1 H Plt Count Lymph % (Auto) 4.2 L [place] % (Auto) Lymph # 0.3 L [place] # Seg Neutrophils % 89.6 H Seg Neuts % (Manual) Lymphocytes % (Manual) Seg Neutrophils # Seg Neutrophils # Man Lymphocytes # (Manual) D-Dimer POC ABG pH POC ABG pCO2 POC ABG pO2 Sodium Potassium Chloride Carbon Dioxide BUN Creatinine Glucose POC Glucose 257 H 223 H Calcium Phosphorus Iron TIBC Albumin TSH Urine WBC (Auto) Urine Creatinine Crossmatch 07/16/16 07/16/16 07/16/16 09:54 11:54 17:48 WBC RBC Hgb Hct MCH RDW Plt Count Lymph % (Auto) [place] % (Auto) Lymph # [place] # Seg Neutrophils % Seg Neuts % (Manual) Lymphocytes % (Manual) Seg Neutrophils # Seg Neutrophils # Man Lymphocytes # (Manual) D-Dimer POC ABG pH POC ABG pCO2 POC ABG pO2 Sodium 148 H Potassium Chloride Carbon Dioxide 21 L BUN 146 H Creatinine 6.0 H Glucose 249 H POC Glucose 294 H 195 H Calcium 6.4 L Phosphorus Iron TIBC Albumin TSH Urine WBC (Auto) Urine Creatinine Crossmatch 07/16/16 07/16/16 07/17/16 21:54 23:53 05:53 WBC RBC Hgb Hct MCH RDW Plt Count Lymph % (Auto) [place] % (Auto) Lymph # [place] # Seg Neutrophils % Seg Neuts % (Manual) Lymphocytes % (Manual) Seg Neutrophils # Seg Neutrophils # Man Lymphocytes # (Manual) D-Dimer POC ABG pH POC ABG pCO2 POC ABG pO2 Sodium Potassium Chloride Carbon Dioxide BUN Creatinine Glucose POC Glucose 161 H 171 H 208 H Calcium Phosphorus Iron TIBC Albumin TSH Urine WBC (Auto) Urine Creatinine Crossmatch 07/17/16 07/17/16 07/17/16 06:52 06:52 11:28 WBC RBC 3.17 L Hgb 8.6 L Hct 26.4 L MCH 27 L RDW 17.2 H Plt Count Lymph % (Auto) [place] % (Auto) Lymph # [place] # Seg Neutrophils % Seg Neuts % (Manual) 90.0 H Lymphocytes % (Manual) 8.0 L Seg Neutrophils # Seg Neutrophils # Man Lymphocytes # (Manual) 0.6 L D-Dimer POC ABG pH POC ABG pCO2 POC ABG pO2 Sodium Potassium Chloride Carbon Dioxide BUN 87 H Creatinine 4.2 H Glucose 231 H POC Glucose 255 H Calcium 6.2 L Phosphorus 5.2 H Iron TIBC Albumin TSH Urine WBC (Auto) Urine Creatinine Crossmatch 07/17/16 07/17/16 07/18/16 16:22 23:41 05:06 WBC RBC 3.25 L Hgb 8.8 L Hct 27.2 L MCH 27 L RDW 17.0 H Plt Count Lymph % (Auto) [place] % (Auto) Lymph # [place] # Seg Neutrophils % Seg Neuts % (Manual) 80.0 H Lymphocytes % (Manual) 10.0 L Seg Neutrophils # Seg Neutrophils # Man Lymphocytes # (Manual) 0.9 L D-Dimer POC ABG pH POC ABG pCO2 POC ABG pO2 Sodium Potassium Chloride Carbon Dioxide BUN Creatinine Glucose POC Glucose 263 H 195 H Calcium Phosphorus Iron TIBC Albumin TSH Urine WBC (Auto) Urine Creatinine Crossmatch 07/18/16 07/18/16 07/18/16 05:06 06:52 11:52 WBC RBC Hgb Hct MCH RDW Plt Count Lymph % (Auto) [place] % (Auto) Lymph # [place] # Seg Neutrophils % Seg Neuts % (Manual) Lymphocytes % (Manual) Seg Neutrophils # Seg Neutrophils # Man Lymphocytes # (Manual) D-Dimer POC ABG pH POC ABG pCO2 POC ABG pO2 Sodium Potassium Chloride 97.7 L Carbon Dioxide BUN 51 H Creatinine 2.8 H Glucose 252 H POC Glucose 289 H 242 H Calcium 6.4 L Phosphorus Iron TIBC Albumin TSH Urine WBC (Auto) Urine Creatinine Crossmatch 07/18/16 07/18/16 07/19/16 16:36 21:34 05:50 WBC RBC Hgb Hct MCH RDW Plt Count Lymph % (Auto) [place] % (Auto) Lymph # [place] # Seg Neutrophils % Seg Neuts % (Manual) Lymphocytes % (Manual) Seg Neutrophils # Seg Neutrophils # Man Lymphocytes # (Manual) D-Dimer POC ABG pH POC ABG pCO2 POC ABG pO2 Sodium Potassium Chloride Carbon Dioxide BUN Creatinine Glucose POC Glucose 221 H 210 H 273 H Calcium Phosphorus Iron TIBC Albumin TSH Urine WBC (Auto) Urine Creatinine Crossmatch 07/19/16 07/19/16 07/19/16 07:09 17:06 21:56 WBC RBC Hgb Hct MCH RDW Plt Count Lymph % (Auto) [place] % (Auto) Lymph # [place] # Seg Neutrophils % Seg Neuts % (Manual) Lymphocytes % (Manual) Seg Neutrophils # Seg Neutrophils # Man Lymphocytes # (Manual) D-Dimer POC ABG pH POC ABG pCO2 POC ABG pO2 Sodium Potassium Chloride 96.2 L Carbon Dioxide BUN 81 H Creatinine 4.9 H D Glucose 260 H POC Glucose 143 H 148 H Calcium 6.0 L Phosphorus Iron TIBC Albumin TSH Urine WBC (Auto) Urine Creatinine Crossmatch 07/20/16 07/20/16 07/20/16 05:21 06:29 11:01 WBC RBC Hgb Hct MCH RDW Plt Count Lymph % (Auto) [place] % (Auto) Lymph # [place] # Seg Neutrophils % Seg Neuts % (Manual) Lymphocytes % (Manual) Seg Neutrophils # Seg Neutrophils # Man Lymphocytes # (Manual) D-Dimer POC ABG pH POC ABG pCO2 POC ABG pO2 Sodium 136 L Potassium 3.4 L Chloride 94.4 L Carbon Dioxide BUN 43 H Creatinine 3.5 H Glucose 263 H POC Glucose 299 H 281 H Calcium 6.5 L Phosphorus Iron TIBC Albumin TSH Urine WBC (Auto) Urine Creatinine Crossmatch 07/20/16 07/20/16 07/21/16 17:07 22:54 06:24 WBC RBC Hgb Hct MCH RDW Plt Count Lymph % (Auto) [place] % (Auto) Lymph # [place] # Seg Neutrophils % Seg Neuts % (Manual) Lymphocytes % (Manual) Seg Neutrophils # Seg Neutrophils # Man Lymphocytes # (Manual) D-Dimer POC ABG pH POC ABG pCO2 POC ABG pO2 Sodium Potassium Chloride Carbon Dioxide BUN Creatinine Glucose POC Glucose 253 H 209 H 346 H Calcium Phosphorus Iron TIBC Albumin TSH Urine WBC (Auto) Urine Creatinine Crossmatch 07/21/16 07/21/16 07/21/16 07:25 15:46 21:23 WBC RBC Hgb Hct MCH RDW Plt Count Lymph % (Auto) [place] % (Auto) Lymph # [place] # Seg Neutrophils % Seg Neuts % (Manual) Lymphocytes % (Manual) Seg Neutrophils # Seg Neutrophils # Man Lymphocytes # (Manual) D-Dimer POC ABG pH POC ABG pCO2 POC ABG pO2 Sodium 133 L Potassium Chloride 90.7 L Carbon Dioxide BUN 71 H Creatinine 4.8 H Glucose 289 H POC Glucose 112 H 218 H Calcium 6.2 L Phosphorus Iron TIBC Albumin TSH Urine WBC (Auto) Urine Creatinine Crossmatch 07/22/16 07/22/16 07/22/16 06:28 11:49 16:37 WBC RBC Hgb Hct MCH RDW Plt Count Lymph % (Auto) [place] % (Auto) Lymph # [place] # Seg Neutrophils % Seg Neuts % (Manual) Lymphocytes % (Manual) Seg Neutrophils # Seg Neutrophils # Man Lymphocytes # (Manual) D-Dimer POC ABG pH POC ABG pCO2 POC ABG pO2 Sodium Potassium Chloride Carbon Dioxide BUN Creatinine Glucose POC Glucose 316 H 211 H 185 H Calcium Phosphorus Iron TIBC Albumin TSH Urine WBC (Auto) Urine Creatinine Crossmatch 07/22/16 07/23/16 07/23/16 20:24 05:19 12:10 WBC RBC Hgb Hct MCH RDW Plt Count Lymph % (Auto) [place] % (Auto) Lymph # [place] # Seg Neutrophils % Seg Neuts % (Manual) Lymphocytes % (Manual) Seg Neutrophils # Seg Neutrophils # Man Lymphocytes # (Manual) D-Dimer POC ABG pH POC ABG pCO2 POC ABG pO2 Sodium Potassium Chloride Carbon Dioxide BUN Creatinine Glucose POC Glucose 213 H 319 H 261 H Calcium Phosphorus Iron TIBC Albumin TSH Urine WBC (Auto) Urine Creatinine Crossmatch 07/23/16 07/23/16 07/24/16 15:49 20:58 05:29 WBC RBC Hgb Hct MCH RDW Plt Count Lymph % (Auto) [place] % (Auto) Lymph # [place] # Seg Neutrophils % Seg Neuts % (Manual) Lymphocytes % (Manual) Seg Neutrophils # Seg Neutrophils # Man Lymphocytes # (Manual) D-Dimer POC ABG pH POC ABG pCO2 POC ABG pO2 Sodium Potassium Chloride Carbon Dioxide BUN Creatinine Glucose POC Glucose 271 H 191 H 279 H Calcium Phosphorus Iron TIBC Albumin TSH Urine WBC (Auto) Urine Creatinine Crossmatch 07/24/16 07/24/16 07/24/16 05:53 16:20 21:31 WBC RBC Hgb Hct MCH RDW Plt Count Lymph % (Auto) [place] % (Auto) Lymph # [place] # Seg Neutrophils % Seg Neuts % (Manual) Lymphocytes % (Manual) Seg Neutrophils # Seg Neutrophils # Man Lymphocytes # (Manual) D-Dimer POC ABG pH POC ABG pCO2 POC ABG pO2 Sodium Potassium Chloride Carbon Dioxide BUN 89 H Creatinine 5.3 H Glucose 273 H POC Glucose 161 H 136 H Calcium 6.2 L Phosphorus Iron TIBC Albumin TSH Urine WBC (Auto) Urine Creatinine Crossmatch 07/25/16 07/25/16 07/25/16 06:25 11:56 16:10 WBC RBC Hgb Hct MCH RDW Plt Count Lymph % (Auto) [place] % (Auto) Lymph # [place] # Seg Neutrophils % Seg Neuts % (Manual) Lymphocytes % (Manual) Seg Neutrophils # Seg Neutrophils # Man Lymphocytes # (Manual) D-Dimer POC ABG pH POC ABG pCO2 POC ABG pO2 Sodium Potassium Chloride Carbon Dioxide BUN Creatinine Glucose POC Glucose 311 H 164 H 249 H Calcium Phosphorus Iron TIBC Albumin TSH Urine WBC (Auto) Urine Creatinine Crossmatch 07/25/16 07/26/16 07/26/16 21:13 06:19 11:31 WBC RBC Hgb Hct MCH RDW Plt Count Lymph % (Auto) [place] % (Auto) Lymph # [place] # Seg Neutrophils % Seg Neuts % (Manual) Lymphocytes % (Manual) Seg Neutrophils # Seg Neutrophils # Man Lymphocytes # (Manual) D-Dimer POC ABG pH POC ABG pCO2 POC ABG pO2 Sodium Potassium Chloride Carbon Dioxide BUN Creatinine Glucose POC Glucose 194 H 280 H 191 H Calcium Phosphorus Iron TIBC Albumin TSH Urine WBC (Auto) Urine Creatinine Crossmatch 07/26/16 07/26/16 07/26/16 12:50 12:50 13:02 WBC RBC 2.35 L Hgb 6.5 L Hct 20.0 L MCH RDW 18.4 H Plt Count 135 L Lymph % (Auto) 7.7 L [place] % (Auto) Lymph # 0.6 L [place] # Seg Neutrophils % 86.8 H Seg Neuts % (Manual) Lymphocytes % (Manual) Seg Neutrophils # Seg Neutrophils # Man Lymphocytes # (Manual) D-Dimer POC ABG pH 7.523 H POC ABG pCO2 31.3 L POC ABG pO2 Sodium Potassium Chloride Carbon Dioxide BUN 67 H Creatinine 4.9 H Glucose 139 H POC Glucose Calcium 6.1 L Phosphorus Iron TIBC Albumin TSH Urine WBC (Auto) Urine Creatinine Crossmatch 07/26/16 07/26/16 07/26/16 15:10 16:11 23:25 WBC RBC Hgb Hct MCH RDW Plt Count Lymph % (Auto) [place] % (Auto) Lymph # [place] # Seg Neutrophils % Seg Neuts % (Manual) Lymphocytes % (Manual) Seg Neutrophils # Seg Neutrophils # Man Lymphocytes # (Manual) D-Dimer POC ABG pH POC ABG pCO2 POC ABG pO2 Sodium Potassium Chloride Carbon Dioxide BUN Creatinine Glucose POC Glucose 204 H 115 H Calcium Phosphorus Iron TIBC Albumin TSH Urine WBC (Auto) Urine Creatinine Crossmatch See Detail 07/27/16 07/27/16 07/27/16 06:39 09:28 09:28 WBC RBC 3.30 L Hgb 9.4 L Hct 28.5 L D MCH RDW 16.5 H Plt Count 115 L Lymph % (Auto) [place] % (Auto) Lymph # [place] # Seg Neutrophils % 78.0 H Seg Neuts % (Manual) Lymphocytes % (Manual) Seg Neutrophils # 8.2 H Seg Neutrophils # Man Lymphocytes # (Manual) D-Dimer POC ABG pH POC ABG pCO2 POC ABG pO2 Sodium Potassium 2.6 L* D Chloride 97.7 L Carbon Dioxide BUN 36 H Creatinine 2.9 H Glucose 157 H POC Glucose 194 H Calcium 6.8 L Phosphorus Iron TIBC Albumin TSH Urine WBC (Auto) Urine Creatinine Crossmatch 07/27/16 07/27/16 07/28/16 11:06 21:17 05:56 WBC RBC Hgb Hct MCH RDW Plt Count Lymph % (Auto) [place] % (Auto) Lymph # [place] # Seg Neutrophils % Seg Neuts % (Manual) Lymphocytes % (Manual) Seg Neutrophils # Seg Neutrophils # Man Lymphocytes # (Manual) D-Dimer POC ABG pH POC ABG pCO2 POC ABG pO2 Sodium Potassium 3.2 L D Chloride Carbon Dioxide BUN 46 H Creatinine 3.5 H Glucose 205 H POC Glucose 145 H 121 H Calcium 6.8 L Phosphorus Iron TIBC Albumin TSH Urine WBC (Auto) Urine Creatinine Crossmatch 07/28/16 07/28/16 07/28/16 05:56 11:12 17:21 WBC RBC Hgb 9.1 L Hct 28.0 L MCH RDW Plt Count Lymph % (Auto) [place] % (Auto) Lymph # [place] # Seg Neutrophils % Seg Neuts % (Manual) Lymphocytes % (Manual) Seg Neutrophils # Seg Neutrophils # Man Lymphocytes # (Manual) D-Dimer POC ABG pH POC ABG pCO2 POC ABG pO2 Sodium Potassium Chloride Carbon Dioxide BUN Creatinine Glucose POC Glucose 125 H 157 H Calcium Phosphorus Iron TIBC Albumin TSH Urine WBC (Auto) Urine Creatinine Crossmatch 07/28/16 07/29/16 07/29/16 21:46 12:10 15:52 WBC RBC Hgb Hct MCH RDW Plt Count Lymph % (Auto) [place] % (Auto) Lymph # [place] # Seg Neutrophils % Seg Neuts % (Manual) Lymphocytes % (Manual) Seg Neutrophils # Seg Neutrophils # Man Lymphocytes # (Manual) D-Dimer POC ABG pH POC ABG pCO2 POC ABG pO2 Sodium Potassium Chloride Carbon Dioxide BUN Creatinine Glucose POC Glucose 190 H 169 H 145 H Calcium Phosphorus Iron TIBC Albumin TSH Urine WBC (Auto) Urine Creatinine Crossmatch 07/29/16 07/30/16 07/30/16 23:56 00:15 05:38 WBC RBC Hgb 8.5 L Hct 26.4 L MCH RDW Plt Count Lymph % (Auto) [place] % (Auto) Lymph # [place] # Seg Neutrophils % Seg Neuts % (Manual) Lymphocytes % (Manual) Seg Neutrophils # Seg Neutrophils # Man Lymphocytes # (Manual) D-Dimer POC ABG pH POC ABG pCO2 POC ABG pO2 Sodium Potassium Chloride Carbon Dioxide BUN Creatinine Glucose POC Glucose 166 H Calcium Phosphorus Iron 23 L TIBC 142 L Albumin TSH Urine WBC (Auto) Urine Creatinine Crossmatch 07/30/16 07/30/16 07/30/16 05:38 06:19 11:25 WBC RBC Hgb Hct MCH RDW Plt Count Lymph % (Auto) [place] % (Auto) Lymph # [place] # Seg Neutrophils % Seg Neuts % (Manual) Lymphocytes % (Manual) Seg Neutrophils # Seg Neutrophils # Man Lymphocytes # (Manual) D-Dimer POC ABG pH POC ABG pCO2 POC ABG pO2 Sodium Potassium Chloride Carbon Dioxide BUN 40 H Creatinine 3.5 H Glucose 151 H POC Glucose 167 H 117 H Calcium 7.1 L Phosphorus Iron TIBC Albumin TSH Urine WBC (Auto) Urine Creatinine Crossmatch 07/30/16 07/30/16 07/31/16 16:29 22:12 06:34 WBC RBC Hgb Hct MCH RDW Plt Count Lymph % (Auto) [place] % (Auto) Lymph # [place] # Seg Neutrophils % Seg Neuts % (Manual) Lymphocytes % (Manual) Seg Neutrophils # Seg Neutrophils # Man Lymphocytes # (Manual) D-Dimer POC ABG pH POC ABG pCO2 POC ABG pO2 Sodium Potassium Chloride Carbon Dioxide BUN Creatinine Glucose POC Glucose 146 H 150 H 148 H Calcium Phosphorus Iron TIBC Albumin TSH Urine WBC (Auto) Urine Creatinine Crossmatch 07/31/16 07/31/16 07/31/16 08:16 08:16 11:26 WBC RBC Hgb 8.1 L Hct 24.9 L MCH RDW Plt Count Lymph % (Auto) [place] % (Auto) Lymph # [place] # Seg Neutrophils % Seg Neuts % (Manual) Lymphocytes % (Manual) Seg Neutrophils # Seg Neutrophils # Man Lymphocytes # (Manual) D-Dimer POC ABG pH POC ABG pCO2 POC ABG pO2 Sodium Potassium Chloride Carbon Dioxide BUN 52 H Creatinine 4.0 H Glucose 152 H POC Glucose 137 H Calcium 6.9 L Phosphorus Iron TIBC Albumin TSH Urine WBC (Auto) Urine Creatinine Crossmatch 08/01/16 08/01/16 08/01/16 00:14 02:49 05:22 WBC RBC 3.09 L Hgb 8.6 L Hct 26.9 L MCH RDW 16.5 H Plt Count 107 L Lymph % (Auto) [place] % (Auto) Lymph # [place] # Seg Neutrophils % Seg Neuts % (Manual) Lymphocytes % (Manual) Seg Neutrophils # Seg Neutrophils # Man Lymphocytes # (Manual) D-Dimer POC ABG pH POC ABG pCO2 POC ABG pO2 Sodium Potassium Chloride Carbon Dioxide BUN Creatinine Glucose POC Glucose 172 H 140 H Calcium Phosphorus Iron TIBC Albumin TSH Urine WBC (Auto) Urine Creatinine Crossmatch 08/01/16 11:18 WBC RBC Hgb Hct MCH RDW Plt Count Lymph % (Auto) [place] % (Auto) Lymph # [place] # Seg Neutrophils % Seg Neuts % (Manual) Lymphocytes % (Manual) Seg Neutrophils # Seg Neutrophils # Man Lymphocytes # (Manual) D-Dimer POC ABG pH POC ABG pCO2 POC ABG pO2 Sodium Potassium Chloride Carbon Dioxide BUN Creatinine Glucose POC Glucose 116 H Calcium Phosphorus Iron TIBC Albumin TSH Urine WBC (Auto) Urine Creatinine Crossmatch
[2016-08-02] MEDS: NOVOLOG SUB-Q SCH ×5 (00:23→22:00)
[2016-08-02] MEDS: HEPARIN SUB-Q SCH ×3 (05:45→21:17)
[2016-08-02] MEDS: SYNTHROID PO SCH (05:45)
[2016-08-02] MEDS: APRESOLINE FEEDTUBE SCH ×3 (06:00→22:00)
[2016-08-02] MEDS: NORMODYNE PO SCH ×3 (08:00→21:06)
[2016-08-02] MEDS: HEPARIN IV PRN (12:50)
[2016-08-02] MEDS: PROCRIT IV SCH (12:50)
[2016-08-02] MEDS: PEPCID PO SCH (13:44)
[2016-08-02] MEDS: NACL 0.9% 1000 ML 1,000 ML IV SCH (13:45)
[2016-08-02] MEDS: NEURONTIN PO SCH ×2 (13:46→21:17)
--- NOTE | 2016-08-02 14:52 | Gastroenterology Progress Note ---
<ANDIE SCHNEIDER FREEDOM - Last Filed: 08/02/16 14:50> Assessment and Plan 1. Dysphagia -S/P PEG placement. G tube intact with no signs of bleeding/infection -Bumper offloaded to 4 cm. -Ok to use for feeding per nutrition protocol -No further GI intervention needed. GI will sign off. Subjective Date of service: 08/02/16 Principal diagnosis: Acute Respiratory Failure; Angioedema Interval history: No acute events overnight. Objective - Constitutional Vitals: Temp Pulse Resp BP Pulse Ox 99.4 F 76 20 146/70 100 08/02/16 13:00 08/02/16 13:44 08/02/16 13:00 08/02/16 13:44 08/02/16 08:28 General appearance: no acute distress - EENT Eyes: EOM intact ENT: hearing intact - Neck Neck: supple - Cardiovascular Rhythm: regular Heart Sounds: Present: S1 & S2, systolic murmur - Gastrointestinal General gastrointestinal: Present: non-tender, non-distended, normal bowel sounds, other (G tube intact ) - Integumentary Integumentary: Present: warm, dry - Labs CBC & Chem 7: 08/01/16 02:49 07/31/16 08:16 Labs: Laboratory Results - last 24 hr 08/01/16 08/01/16 08/01/16 11:18 16:38 20:41 POC Glucose 116 H 104 99 08/02/16 05:50 POC Glucose 111 H <ARNAUD ZULUAGA - Last Filed: 08/02/16 16:43> Assessment and Plan Doing well. Will sign off. Subjective Date of service: 08/02/16 Objective - Constitutional Vitals: Temp Pulse Resp BP Pulse Ox 100.2 F H 85 20 129/61 100 08/02/16 16:30 08/02/16 16:30 08/02/16 16:30 08/02/16 16:30 08/02/16 08:28 - Labs CBC & Chem 7: 08/01/16 02:49 07/31/16 08:16 Labs: Laboratory Results - last 24 hr 08/01/16 08/01/16 08/02/16 16:38 20:41 05:50 POC Glucose 104 99 111 H 08/02/16 16:07 POC Glucose 78
[2016-08-02] MEDS ORDERED: PANCREAZE DR 10,500 UNIT FEEDTUBE PRN (14:56)
[2016-08-02] MEDS ORDERED: SODIUM BICARBONATE FEEDTUBE PRN (14:56)
[2016-08-02] MEDS ORDERED: SIMPLE SYRUP FEEDTUBE PRN ×2 (14:56)
--- NOTE | 2016-08-02 17:14 | Progress Note ---
Assessment and Plan Assessment and plan: Severe hypokalemia * resolved after replacement * cont to monitor, she was hyperkalemic on admission Severe microcytic anemia * s/p 2 units of PRBC * stool for occult blood positive, GI following Dysphagia * Had EGD and PEG tube placement yesterday Acute hypoxic respiratory failure * Resolved, s/p extubation, Off BiPAP * On oxygen support Angioedema with dysphagia * Patient is now extubated and doing well. * Repeat swallow study was unsuccessfull * For PEG placement today. 08/01/16 Urinary tract infection * Urine culture positive for Klebsiella * Treated with Rocephin, Acute renal failure on CKD stage IV. * Etiology likely secondary to vasomotor nephropathy versus interstitial nephritis from initial treatment with Bactrim for UTI. * Patient is on hemodialysis, will need out pt HD set up Hyperkalemia. * improved after dialysis DM2 * Monitor blood glucose closely, SSI Toxic metabolic encephalopathy. * Continue to treat underlying causes. * Continue supportive care Hypothyroidism. * Continue Synthroid. Hypertension * Continue current antihypertensive and adjust medications as needed * Hydralazine when necessary Left upper extremity swelling. * Ultrasound showed SVT in the cephalic vein * conservative management * Disposition. Awaiting placement * History Interval history: non verbal, difficulty swallowing,, PEG tube placed [facility] Hospitalist Physical - Physical exam Narrative exam: Gen: Not in acute distress HEENT: Normocephalic, atraumatic, NG tube in Neck :supple, no JVD Lungs clear to auscultation bilaterally no crackles or wheeze Heart :S1 and S2 regular, no murmurs no gallop Abdomen:soft, nontender, nondistended, PEG tube, normal bowel sounds Ext: edema left upper ext Neuro: lethargic - Constitutional Vitals: Temp Pulse Resp BP Pulse Ox 100.2 F H 85 20 129/61 100 08/02/16 16:30 08/02/16 16:30 08/02/16 16:30 08/02/16 16:30 08/02/16 08:28 General appearance: Present: no acute distress, obese Results - Labs CBC & Chem 7: 08/01/16 02:49 07/31/16 08:16 Labs: Laboratory Last Values WBC 5.3 K/mm3 (4.5-11.0) 08/01/16 02:49 RBC 3.09 M/mm3 (3.65-5.03) L 08/01/16 02:49 Hgb 8.6 gm/dl (10.1-14.3) L 08/01/16 02:49 Hct 26.9 % (30.3-42.9) L 08/01/16 02:49 MCV 87 fl (79-97) 08/01/16 02:49 MCH 28 pg (28-32) 08/01/16 02:49 MCHC 32 % (30-34) 08/01/16 02:49 RDW 16.5 % (13.2-15.2) H 08/01/16 02:49 Plt Count 107 K/mm3 (140-440) L 08/01/16 02:49 Lymph % (Auto) 14.1 % (13.4-35.0) 07/27/16 09:28 [place] % (Auto) 6.5 % (0.0-7.3) 07/27/16 09:28 Eos % (Auto) 1.1 % (0.0-4.3) 07/27/16 09:28 Baso % (Auto) 0.3 % (0.0-1.8) 07/27/16 09:28 Lymph # 1.5 K/mm3 (1.2-5.4) 07/27/16 09:28 [place] # 0.7 K/mm3 (0.0-0.8) 07/27/16 09:28 Eos # 0.1 K/mm3 (0.0-0.4) 07/27/16 09:28 Baso # 0.0 K/mm3 (0.0-0.1) 07/27/16 09:28 Add Manual Diff Complete 07/18/16 05:06 Total Counted 100 07/18/16 05:06 Seg Neutrophils % 78.0 % (40.0-70.0) H 07/27/16 09:28 Seg Neuts % (Manual) 80.0 % (40.0-70.0) H 07/18/16 05:06 Band Neutrophils % 4.0 % 07/18/16 05:06 Lymphocytes % (Manual) 10.0 % (13.4-35.0) L 07/18/16 05:06 Reactive Lymphs % (Man) 0 % 07/18/16 05:06 Monocytes % (Manual) 6.0 % (0.0-7.3) 07/18/16 05:06 Eosinophils % (Manual) 0 % (0.0-4.3) 07/17/16 06:52 Basophils % (Manual) 0 % (0.0-1.8) 07/17/16 06:52 Metamyelocytes % 0 % 07/18/16 05:06 Myelocytes % 0 % 07/18/16 05:06 Promyelocytes % 0 % 07/18/16 05:06 Blast Cells % 0 % 07/18/16 05:06 Nucleated RBC % Not Reportable 07/18/16 05:06 Seg Neutrophils # 8.2 K/mm3 (1.8-7.7) H 07/27/16 09:28 Seg Neutrophils # Man 6.9 K/mm3 (1.8-7.7) 07/18/16 05:06 Band Neutrophils # 0.3 K/mm3 07/18/16 05:06 Lymphocytes # (Manual) 0.9 K/mm3 (1.2-5.4) L 07/18/16 05:06 Abs React Lymphs (Man) 0.0 K/mm3 07/18/16 05:06 Monocytes # (Manual) 0.5 K/mm3 (0.0-0.8) 07/18/16 05:06 Eosinophils # (Manual) 0.0 K/mm3 (0.0-0.4) 07/18/16 05:06 Basophils # (Manual) 0.0 K/mm3 (0.0-0.1) 07/18/16 05:06 Metamyelocytes # 0.0 K/mm3 07/18/16 05:06 Myelocytes # 0.0 K/mm3 07/18/16 05:06 Promyelocytes # 0.0 K/mm3 07/18/16 05:06 Blast Cells # 0.0 K/mm3 07/18/16 05:06 WBC Morphology Not Reportable 07/18/16 05:06 Hypersegmented Neuts Not Reportable 07/18/16 05:06 Hyposegmented Neuts Not Reportable 07/18/16 05:06 Hypogranular Neuts Not Reportable 07/18/16 05:06 Smudge Cells Not Reportable 07/18/16 05:06 Toxic Granulation Not Reportable 07/18/16 05:06 Toxic Vacuolation Not Reportable 07/18/16 05:06 Dohle Bodies Not Reportable 07/18/16 05:06 Pelger-Huet Anomaly Not Reportable 07/18/16 05:06 Shagufta Rods Not Reportable 07/18/16 05:06 Platelet Estimate Not Reportable 07/18/16 05:06 Clumped Platelets Not Reportable 07/18/16 05:06 Plt Clumps, EDTA Not Reportable 07/18/16 05:06 Large Platelets Not Reportable 07/18/16 05:06 Giant Platelets Not Reportable 07/18/16 05:06 Platelet Satelliting Not Reportable 07/18/16 05:06 Plt Morphology Comment Not Reportable 07/18/16 05:06 RBC Morphology Not Reportable 07/18/16 05:06 Dimorphic RBCs Not Reportable 07/18/16 05:06 Polychromasia Not Reportable 07/18/16 05:06 Hypochromasia Not Reportable 07/18/16 05:06 Poikilocytosis Not Reportable 07/18/16 05:06 Anisocytosis 1+ 07/18/16 05:06 Microcytosis Not Reportable 07/18/16 05:06 Macrocytosis Not Reportable 07/18/16 05:06 Spherocytes Not Reportable 07/18/16 05:06 Pappenheimer Bodies Not Reportable 07/18/16 05:06 Sickle Cells Not Reportable 07/18/16 05:06 Target Cells Not Reportable 07/18/16 05:06 Tear Drop Cells Not Reportable 07/18/16 05:06 Ovalocytes Not Reportable 07/18/16 05:06 Helmet Cells Not Reportable 07/18/16 05:06 [place] Bodies Not Reportable 07/18/16 05:06 Holcomb Rings Not Reportable 07/18/16 05:06 Radha Cells Not Reportable 07/18/16 05:06 Bite Cells Not Reportable 07/18/16 05:06 Crenated Cell Not Reportable 07/18/16 05:06 Elliptocytes Few 07/18/16 05:06 Acanthocytes (Spur) Not Reportable 07/18/16 05:06 Rouleaux Not Reportable 07/18/16 05:06 Hemoglobin C Crystals Not Reportable 07/18/16 05:06 Schistocytes Not Reportable 07/18/16 05:06 Malaria parasites Not Reportable 07/18/16 05:06 Kaushik Bodies Not Reportable 07/18/16 05:06 Hem Pathologist Commnt No 07/18/16 05:06 PT 12.8 Sec. (12.2-14.9) 08/01/16 02:49 INR 0.97 (0.87-1.13) 08/01/16 02:49 APTT 34.8 Sec. (24.2-36.6) 07/18/16 05:06 D-Dimer 751.80 ng/mlDDU (0-234) H 07/11/16 12:22 POC ABG pH 7.523 (7.35-7.45) H 07/26/16 13:02 POC ABG pCO2 31.3 (35-45) L 07/26/16 13:02 POC ABG pO2 96 (80-105) 07/26/16 13:02 POC ABG HCO3 25.7 07/26/16 13:02 POC ABG Total CO2 27 07/26/16 13:02 POC ABG O2 Sat 98 07/26/16 13:02 POC ABG Base Excess 3 07/26/16 13:02 FiO2 21 % 07/26/16 13:02 Sodium 141 mmol/L (137-145) 07/31/16 08:16 Potassium 4.2 mmol/L (3.6-5.0) 07/31/16 08:16 Chloride 103.7 mmol/L (98-107) 07/31/16 08:16 Carbon Dioxide 24 mmol/L (22-30) 07/31/16 08:16 Anion Gap 18 mmol/L 07/31/16 08:16 BUN 52 mg/dL (7-17) H 07/31/16 08:16 Creatinine 4.0 mg/dL (0.7-1.2) H 07/31/16 08:16 Estimated GFR 13 ml/min 07/31/16 08:16 BUN/Creatinine Ratio 13.00 % 07/31/16 08:16 Glucose 152 mg/dL (65-100) H 07/31/16 08:16 POC Glucose 78 (70-105) 08/02/16 16:07 Hemoglobin A1c 5.6 % (4-6) 07/15/16 04:56 Lactic Acid 0.8 mmol/L (0.7-2.0) 07/19/16 00:37 Calcium 6.9 mg/dL (8.4-10.2) L 07/31/16 08:16 Phosphorus 5.2 mg/dL (2.5-4.5) H 07/17/16 06:52 Magnesium 1.9 mg/dL (1.7-2.3) 07/17/16 06:52 Iron 23 ug/dL (37-170) L 07/30/16 00:15 TIBC 142 mcg/dL (250-450) L 07/30/16 00:15 Total Bilirubin < 0.2 mg/dL (0.1-1.2) 07/10/16 06:43 AST 17 units/L (5-40) 07/10/16 06:43 ALT 9 units/L (7-56) 07/10/16 06:43 Alkaline Phosphatase 62 units/L (35-129) 07/10/16 06:43 Total Creatine Kinase 131 units/L (30-135) 07/11/16 12:22 CK-MB (CK-2) 2.0 ng/mL (0.0-4.0) 07/11/16 12:22 CK-MB (CK-2) Rel Index 1.5 (0-4) 07/11/16 12:22 Troponin T < 0.010 ng/mL (0.00-0.029) 07/11/16 12:22 Total Protein 6.7 g/dL (6.3-8.2) 07/10/16 06:43 Albumin 3.5 g/dL (3.9-5) L 07/10/16 06:43 Albumin/Globulin Ratio 1.1 % 07/10/16 06:43 TSH 8.090 mlU/mL (0.270-4.200) H 07/05/16 05:08 Urine Color Straw (Yellow) 07/06/16 01:18 Urine Turbidity Clear (Clear) 07/06/16 01:18 Urine pH 6.0 (5.0-7.0) 07/06/16 01:18 Ur Specific [place] 1.003 (1.003-1.030) 07/06/16 01:18 Urine Protein <15 mg/dl mg/dL (Negative) 07/06/16 01:18 Urine Glucose (UA) Neg mg/dL (Negative) 07/06/16 01:18 Urine Ketones Neg mg/dL (Negative) 07/06/16 01:18 Urine Blood Neg (Negative) 07/06/16 01:18 Urine Nitrite Neg (Negative) 07/06/16 01:18 Urine Bilirubin Neg (Negative) 07/06/16 01:18 Urine Urobilinogen < 2.0 mg/dL (<2.0) 07/06/16 01:18 Ur Leukocyte Esterase Mod (Negative) 07/06/16 01:18 Urine WBC (Auto) 7.0 /HPF (0.0-6.0) H 07/06/16 01:18 Urine RBC (Auto) 3.0 /HPF (0.0-6.0) 07/06/16 01:18 U Epithel Cells (Auto) 1.0 /HPF (0-13.0) 06/30/16 11:34 Urine Bacteria (Auto) 1+ /HPF (Negative) 06/30/16 11:34 Urine Eosinophils None seen (None Seen) 07/06/16 01:18 Urine Creatinine 36.6 mg/dL (0.1-20.0) H 07/06/16 01:18 Urine Microalbumin 6.5 mg/dL (0.1-34.0) 07/06/16 01:18 Microalb/Creat Ratio 177.5 ug/mg 07/06/16 01:18 Urine Sodium 28 mEq/L 07/06/16 01:18 Urine Opiates Screen Presumptive negative 06/30/16 11:34 Urine Methadone Screen Presumptive negative 06/30/16 11:34 Acetaminophen < 15.0 ug/mL (10.0-30.0) 06/30/16 12:01 Ur Barbiturates Screen Presumptive negative 06/30/16 11:34 Ur Phencyclidine Scrn Presumptive negative 06/30/16 11:34 Ur Amphetamines Screen Presumptive negative 06/30/16 11:34 U Benzodiazepines Scrn Presumptive negative 06/30/16 11:34 Urine Cocaine Screen Presumptive negative 06/30/16 11:34 U Marijuana (THC) Screen Presumptive negative 06/30/16 11:34 Drugs of Abuse Note Disclamer 06/30/16 11:34 Plasma/Serum Alcohol < 0.01 gm% (0-0.07) 06/30/16 12:01 Hepatitis A IgM Ab -1 (NonReactive) 07/16/16 19:08 Hep Bs Antigen Non-reactive (Negative) 07/16/16 19:08 Hep B Core IgM Ab Non-reactive (NonReactive) 07/16/16 19:08 Hepatitis C Antibody Non-reactive (NonReactive) 07/16/16 19:08 Blood Type O POSITIVE 07/26/16 15:10 Antibody Screen Negative 07/26/16 15:10 Crossmatch See Detail 07/26/16 15:10
--- NOTE | 2016-08-02 17:42 | Progress Note ---
Assessment and Plan Patient sleeping and on 2 litres O2. O2 satuaration 100%. No respiratory distress. No change in patients condition. - Patient Problems (1) Angioedema Current Visit: Yes Status: Acute Plan to address problem: Improved. (2) GABRIELA (acute kidney injury) Current Visit: Yes Status: Acute Plan to address problem: Patient is on dialysis. Mangement as per nephrology. (3) Encephalopathy acute Current Visit: Yes Status: Chronic Plan to address problem: Management as per primary care. (4) Hypertension Current Visit: Yes Status: Acute Plan to address problem: Management as per primary care. (5) Diabetes Current Visit: No Status: Acute Qualifiers: Diabetes mellitus type: type 2 Diabetes mellitus complication status: with kidney complications Diabetes mellitus complication detail: with chronic kidney disease Plan to address problem: Management as per primary care. (6) Bipolar disorder Current Visit: No Status: Acute Qualifiers: Active/Remission status: remission status unspecified Most recent bipolar episode type: most recent episode unspecified type Plan to address problem: Management as per primary care and psychiatry. Subjective Date of service: 08/02/16 Principal diagnosis: Acute Respiratory Failure; Angioedema Interval history: Patient sleeping and on 2 litres O2.O2 satuaration 100% No respiratory distress.No change in patients condition. Objective Vital Signs - 12hr 08/02/16 08/02/16 08/02/16 05:56 08:28 10:08 Temperature 99.1 F 98.2 F Pulse Rate 68 Pulse Rate [ 76 Apical] Respiratory 22 22 Rate Respiratory 20 Rate [denies pain] Blood Pressure 156/76 Blood Pressure 146/67 [Right Arm] O2 Sat by Pulse 100 Oximetry 08/02/16 08/02/16 08/02/16 10:15 10:30 10:45 Temperature Pulse Rate 67 71 69 Pulse Rate [ Apical] Respiratory Rate Respiratory Rate [denies pain] Blood Pressure 161/71 153/70 155/70 Blood Pressure [Right Arm] O2 Sat by Pulse Oximetry 08/02/16 08/02/16 08/02/16 11:00 11:15 11:30 Temperature Pulse Rate 71 69 69 Pulse Rate [ Apical] Respiratory Rate Respiratory Rate [denies pain] Blood Pressure 146/69 151/69 141/68 Blood Pressure [Right Arm] O2 Sat by Pulse Oximetry 08/02/16 08/02/16 08/02/16 11:45 12:00 12:15 Temperature Pulse Rate 71 68 69 Pulse Rate [ Apical] Respiratory Rate Respiratory Rate [denies pain] Blood Pressure 145/71 146/68 140/68 Blood Pressure [Right Arm] O2 Sat by Pulse Oximetry 08/02/16 08/02/16 08/02/16 12:30 12:45 12:50 Temperature Pulse Rate 69 67 66 Pulse Rate [ Apical] Respiratory Rate Respiratory Rate [denies pain] Blood Pressure 134/62 147/69 140/68 Blood Pressure [Right Arm] O2 Sat by Pulse Oximetry 08/02/16 08/02/16 08/02/16 13:00 13:44 16:30 Temperature 99.4 F 100.2 F H Pulse Rate 68 76 Pulse Rate [ 85 Apical] Respiratory 20 20 Rate Respiratory Rate [denies pain] Blood Pressure 160/70 146/70 Blood Pressure 129/61 [Right Arm] O2 Sat by Pulse Oximetry Constitutional: no acute distress, asleep, other (does not localize to sternal rub) Eyes: non-icteric ENT: oropharynx moist Neck: supple, no lymphadenopathy Effort: normal Ascultation: Bilateral: diminished breath sounds (bases) Cardiovascular: regular rate and rhythm Gastrointestinal: normoactive bowel sounds, soft, non-tender, non-distended Integumentary: normal Extremities: no cyanosis, no edema, pulses normal, no ischemia or petechiae Neurologic: non-focal exam (grossly), pupils equal and round, CN II-XII normal Psychiatric: other (somnolent) CBC and BMP: 08/01/16 02:49 07/31/16 08:16 ABG, PT/INR, D-dimer: ABG POC ABG pH 7.523 (7.35-7.45) H 07/26/16 13:02 POC ABG pCO2 31.3 (35-45) L 07/26/16 13:02 POC ABG pO2 96 (80-105) 07/26/16 13:02 POC ABG HCO3 25.7 07/26/16 13:02 POC ABG Total CO2 27 07/26/16 13:02 POC ABG O2 Sat 98 07/26/16 13:02 PT/INR, D-dimer PT 12.8 Sec. (12.2-14.9) 08/01/16 02:49 INR 0.97 (0.87-1.13) 08/01/16 02:49 D-Dimer 751.80 ng/mlDDU (0-234) H 07/11/16 12:22 Abnormal lab findings: Abnormal Labs 07/03/16 07/03/16 07/04/16 14:34 14:34 06:21 WBC 3.9 L RBC 3.16 L 3.04 L Hgb 8.5 L 8.0 L Hct 26.8 L 25.6 L MCH 27 L 26 L RDW 16.5 H 16.2 H Plt Count Lymph % (Auto) [place] % (Auto) 10.7 H 10.7 H Lymph # 1.0 L [place] # Seg Neutrophils % Seg Neuts % (Manual) Lymphocytes % (Manual) Seg Neutrophils # Seg Neutrophils # Man Lymphocytes # (Manual) D-Dimer POC ABG pH POC ABG pCO2 POC ABG pO2 Sodium Potassium Chloride 107.6 H Carbon Dioxide BUN 27 H Creatinine 2.6 H Glucose POC Glucose Calcium 8.0 L Phosphorus Iron TIBC Albumin TSH Urine WBC (Auto) Urine Creatinine Crossmatch 07/04/16 07/04/16 07/04/16 06:21 11:30 16:33 WBC RBC Hgb Hct MCH RDW Plt Count Lymph % (Auto) [place] % (Auto) Lymph # [place] # Seg Neutrophils % Seg Neuts % (Manual) Lymphocytes % (Manual) Seg Neutrophils # Seg Neutrophils # Man Lymphocytes # (Manual) D-Dimer POC ABG pH POC ABG pCO2 POC ABG pO2 Sodium Potassium Chloride 107.4 H Carbon Dioxide 21 L BUN 27 H Creatinine 2.7 H Glucose POC Glucose 110 H 106 H Calcium 7.8 L Phosphorus Iron TIBC Albumin TSH Urine WBC (Auto) Urine Creatinine Crossmatch 07/05/16 07/05/16 07/05/16 05:08 05:08 05:08 WBC 4.0 L RBC 2.87 L Hgb 7.7 L Hct 24.2 L MCH 27 L RDW 16.0 H Plt Count Lymph % (Auto) [place] % (Auto) Lymph # [place] # Seg Neutrophils % Seg Neuts % (Manual) Lymphocytes % (Manual) Seg Neutrophils # Seg Neutrophils # Man Lymphocytes # (Manual) D-Dimer POC ABG pH POC ABG pCO2 POC ABG pO2 Sodium Potassium Chloride Carbon Dioxide 21 L BUN 32 H Creatinine 3.7 H Glucose POC Glucose Calcium 7.8 L Phosphorus Iron TIBC Albumin TSH 8.090 H Urine WBC (Auto) Urine Creatinine Crossmatch 07/05/16 07/06/16 07/06/16 11:45 01:18 01:18 WBC RBC Hgb 8.3 L Hct 25.9 L MCH RDW Plt Count Lymph % (Auto) [place] % (Auto) Lymph # [place] # Seg Neutrophils % Seg Neuts % (Manual) Lymphocytes % (Manual) Seg Neutrophils # Seg Neutrophils # Man Lymphocytes # (Manual) D-Dimer POC ABG pH POC ABG pCO2 POC ABG pO2 Sodium Potassium Chloride Carbon Dioxide BUN Creatinine Glucose POC Glucose Calcium Phosphorus Iron TIBC Albumin TSH Urine WBC (Auto) 7.0 H Urine Creatinine 36.6 H Crossmatch 07/06/16 07/06/16 07/06/16 05:55 05:55 16:07 WBC 3.0 L RBC 2.79 L Hgb 7.5 L Hct 23.5 L MCH 27 L RDW 16.5 H Plt Count Lymph % (Auto) [place] % (Auto) Lymph # [place] # Seg Neutrophils % Seg Neuts % (Manual) Lymphocytes % (Manual) Seg Neutrophils # Seg Neutrophils # Man Lymphocytes # (Manual) D-Dimer POC ABG pH POC ABG pCO2 POC ABG pO2 Sodium Potassium Chloride 109.3 H Carbon Dioxide 20 L BUN 32 H Creatinine 3.4 H Glucose POC Glucose 117 H Calcium 7.5 L Phosphorus Iron TIBC Albumin TSH Urine WBC (Auto) Urine Creatinine Crossmatch 07/07/16 07/07/16 07/08/16 06:19 16:13 00:09 WBC RBC Hgb Hct MCH RDW Plt Count Lymph % (Auto) [place] % (Auto) Lymph # [place] # Seg Neutrophils % Seg Neuts % (Manual) Lymphocytes % (Manual) Seg Neutrophils # Seg Neutrophils # Man Lymphocytes # (Manual) D-Dimer POC ABG pH POC ABG pCO2 POC ABG pO2 Sodium Potassium Chloride 111.1 H Carbon Dioxide 20 L BUN 31 H Creatinine 3.1 H Glucose POC Glucose 108 H 134 H Calcium 8.0 L Phosphorus Iron TIBC Albumin TSH Urine WBC (Auto) Urine Creatinine Crossmatch 07/08/16 07/08/16 07/08/16 11:39 16:31 21:22 WBC RBC Hgb Hct MCH RDW Plt Count Lymph % (Auto) [place] % (Auto) Lymph # [place] # Seg Neutrophils % Seg Neuts % (Manual) Lymphocytes % (Manual) Seg Neutrophils # Seg Neutrophils # Man Lymphocytes # (Manual) D-Dimer POC ABG pH POC ABG pCO2 POC ABG pO2 Sodium Potassium Chloride Carbon Dioxide BUN Creatinine Glucose POC Glucose 119 H 130 H 152 H Calcium Phosphorus Iron TIBC Albumin TSH Urine WBC (Auto) Urine Creatinine Crossmatch 07/09/16 07/09/16 07/09/16 05:52 05:52 06:02 WBC RBC 3.55 L Hgb 9.4 L Hct MCH 27 L RDW 17.1 H Plt Count Lymph % (Auto) [place] % (Auto) Lymph # [place] # Seg Neutrophils % Seg Neuts % (Manual) Lymphocytes % (Manual) Seg Neutrophils # Seg Neutrophils # Man Lymphocytes # (Manual) D-Dimer POC ABG pH POC ABG pCO2 POC ABG pO2 Sodium 147 H Potassium 5.4 H Chloride 112.8 H Carbon Dioxide 21 L BUN 30 H Creatinine 2.5 H Glucose 21 L* POC Glucose < 40 L Calcium Phosphorus Iron TIBC Albumin TSH Urine WBC (Auto) Urine Creatinine Crossmatch 07/09/16 07/09/16 07/10/16 11:31 16:50 05:23 WBC RBC Hgb Hct MCH RDW Plt Count Lymph % (Auto) [place] % (Auto) Lymph # [place] # Seg Neutrophils % Seg Neuts % (Manual) Lymphocytes % (Manual) Seg Neutrophils # Seg Neutrophils # Man Lymphocytes # (Manual) D-Dimer POC ABG pH POC ABG pCO2 POC ABG pO2 Sodium Potassium Chloride Carbon Dioxide BUN Creatinine Glucose POC Glucose 114 H 149 H < 40 L Calcium Phosphorus Iron TIBC Albumin TSH Urine WBC (Auto) Urine Creatinine Crossmatch 07/10/16 07/10/16 07/10/16 06:03 06:43 06:43 WBC RBC 2.90 L Hgb 7.7 L Hct 25.0 L MCH 27 L RDW 17.0 H Plt Count Lymph % (Auto) [place] % (Auto) 10.4 H Lymph # 1.1 L [place] # Seg Neutrophils % Seg Neuts % (Manual) Lymphocytes % (Manual) Seg Neutrophils # Seg Neutrophils # Man Lymphocytes # (Manual) D-Dimer POC ABG pH POC ABG pCO2 POC ABG pO2 Sodium 148 H Potassium 5.1 H Chloride 111.7 H Carbon Dioxide 20 L BUN 31 H Creatinine 2.4 H Glucose POC Glucose 211 H Calcium 8.0 L Phosphorus Iron TIBC Albumin 3.5 L TSH Urine WBC (Auto) Urine Creatinine Crossmatch 07/10/16 07/11/16 07/11/16 14:55 05:37 05:47 WBC RBC Hgb 7.9 L Hct 25.5 L MCH RDW Plt Count Lymph % (Auto) [place] % (Auto) Lymph # [place] # Seg Neutrophils % Seg Neuts % (Manual) Lymphocytes % (Manual) Seg Neutrophils # Seg Neutrophils # Man Lymphocytes # (Manual) D-Dimer POC ABG pH POC ABG pCO2 POC ABG pO2 Sodium Potassium Chloride Carbon Dioxide BUN Creatinine Glucose POC Glucose < 40 L > 500 H Calcium Phosphorus Iron TIBC Albumin TSH Urine WBC (Auto) Urine Creatinine Crossmatch 07/11/16 07/11/16 07/11/16 05:56 07:42 07:48 WBC RBC Hgb Hct MCH RDW Plt Count Lymph % (Auto) [place] % (Auto) Lymph # [place] # Seg Neutrophils % Seg Neuts % (Manual) Lymphocytes % (Manual) Seg Neutrophils # Seg Neutrophils # Man Lymphocytes # (Manual) D-Dimer POC ABG pH POC ABG pCO2 POC ABG pO2 Sodium Potassium Chloride Carbon Dioxide BUN Creatinine Glucose POC Glucose 262 H 56 L 54 L Calcium Phosphorus Iron TIBC Albumin TSH Urine WBC (Auto) Urine Creatinine Crossmatch 07/11/16 07/11/16 07/11/16 08:34 08:50 09:53 WBC RBC Hgb Hct MCH RDW Plt Count Lymph % (Auto) [place] % (Auto) Lymph # [place] # Seg Neutrophils % Seg Neuts % (Manual) Lymphocytes % (Manual) Seg Neutrophils # Seg Neutrophils # Man Lymphocytes # (Manual) D-Dimer POC ABG pH POC ABG pCO2 31.1 L POC ABG pO2 108 H Sodium Potassium Chloride Carbon Dioxide BUN Creatinine Glucose POC Glucose 110 H 68 L Calcium Phosphorus Iron TIBC Albumin TSH Urine WBC (Auto) Urine Creatinine Crossmatch 07/11/16 07/11/16 07/11/16 11:48 12:22 12:22 WBC 11.6 H RBC Hgb Hct MCH 27 L RDW 17.2 H Plt Count Lymph % (Auto) [place] % (Auto) Lymph # [place] # Seg Neutrophils % Seg Neuts % (Manual) 91.0 H Lymphocytes % (Manual) 5.0 L Seg Neutrophils # 10.8 H Seg Neutrophils # Man 10.6 H Lymphocytes # (Manual) 0.6 L D-Dimer 751.80 H POC ABG pH POC ABG pCO2 POC ABG pO2 Sodium Potassium Chloride Carbon Dioxide BUN Creatinine Glucose POC Glucose 118 H Calcium Phosphorus Iron TIBC Albumin TSH Urine WBC (Auto) Urine Creatinine Crossmatch 07/11/16 07/11/16 07/11/16 12:22 12:29 15:23 WBC RBC Hgb Hct MCH RDW Plt Count Lymph % (Auto) [place] % (Auto) Lymph # [place] # Seg Neutrophils % Seg Neuts % (Manual) Lymphocytes % (Manual) Seg Neutrophils # Seg Neutrophils # Man Lymphocytes # (Manual) D-Dimer POC ABG pH POC ABG pCO2 28.4 L POC ABG pO2 Sodium Potassium 6.1 H* Chloride 109.4 H Carbon Dioxide 18 L BUN 30 H Creatinine 2.1 H Glucose 126 H POC Glucose 204 H Calcium Phosphorus Iron TIBC Albumin TSH Urine WBC (Auto) Urine Creatinine Crossmatch 07/11/16 07/11/16 07/11/16 17:27 17:55 21:42 WBC RBC Hgb Hct MCH RDW Plt Count Lymph % (Auto) [place] % (Auto) Lymph # [place] # Seg Neutrophils % Seg Neuts % (Manual) Lymphocytes % (Manual) Seg Neutrophils # Seg Neutrophils # Man Lymphocytes # (Manual) D-Dimer POC ABG pH POC ABG pCO2 POC ABG pO2 Sodium 146 H Potassium 6.5 H* Chloride 109.7 H Carbon Dioxide 20 L BUN 32 H Creatinine 2.4 H Glucose 167 H POC Glucose 433 H 142 H Calcium Phosphorus Iron TIBC Albumin TSH Urine WBC (Auto) Urine Creatinine Crossmatch 07/12/16 07/12/16 07/12/16 04:34 04:34 05:22 WBC 14.0 H RBC Hgb Hct MCH 27 L RDW 17.6 H Plt Count 113 L Lymph % (Auto) [place] % (Auto) Lymph # [place] # Seg Neutrophils % Seg Neuts % (Manual) 87.0 H Lymphocytes % (Manual) 11.0 L Seg Neutrophils # Seg Neutrophils # Man 12.2 H Lymphocytes # (Manual) D-Dimer POC ABG pH 7.452 H POC ABG pCO2 29.6 L POC ABG pO2 Sodium Potassium 6.8 H* Chloride 110.2 H Carbon Dioxide 16 L BUN 43 H Creatinine 2.9 H Glucose 113 H POC Glucose Calcium Phosphorus Iron TIBC Albumin TSH Urine WBC (Auto) Urine Creatinine Crossmatch 07/12/16 07/12/16 07/12/16 13:24 17:28 21:11 WBC RBC Hgb Hct MCH RDW Plt Count Lymph % (Auto) [place] % (Auto) Lymph # [place] # Seg Neutrophils % Seg Neuts % (Manual) Lymphocytes % (Manual) Seg Neutrophils # Seg Neutrophils # Man Lymphocytes # (Manual) D-Dimer POC ABG pH POC ABG pCO2 POC ABG pO2 Sodium 150 H Potassium Chloride 108.9 H Carbon Dioxide 21 L BUN 52 H Creatinine 3.7 H Glucose 143 H POC Glucose 148 H 134 H Calcium 8.0 L Phosphorus Iron TIBC Albumin TSH Urine WBC (Auto) Urine Creatinine Crossmatch 07/12/16 07/13/16 07/13/16 21:50 04:40 04:40 WBC 14.0 H RBC 3.50 L Hgb 9.3 L Hct 29.3 L MCH 27 L RDW 17.3 H Plt Count Lymph % (Auto) 4.9 L [place] % (Auto) Lymph # 0.7 L [place] # Seg Neutrophils % 90.0 H Seg Neuts % (Manual) 93.0 H Lymphocytes % (Manual) 5.0 L Seg Neutrophils # 12.6 H Seg Neutrophils # Man 13.0 H Lymphocytes # (Manual) 0.7 L D-Dimer POC ABG pH POC ABG pCO2 POC ABG pO2 Sodium 151 H Potassium Chloride 109.3 H Carbon Dioxide BUN 59 H Creatinine 4.0 H Glucose 63 L POC Glucose 156 H Calcium 7.7 L Phosphorus Iron TIBC Albumin TSH Urine WBC (Auto) Urine Creatinine Crossmatch 07/13/16 07/13/16 07/13/16 06:10 06:40 08:03 WBC RBC Hgb Hct MCH RDW Plt Count Lymph % (Auto) [place] % (Auto) Lymph # [place] # Seg Neutrophils % Seg Neuts % (Manual) Lymphocytes % (Manual) Seg Neutrophils # Seg Neutrophils # Man Lymphocytes # (Manual) D-Dimer POC ABG pH POC ABG pCO2 POC ABG pO2 Sodium Potassium Chloride Carbon Dioxide BUN Creatinine Glucose POC Glucose 68 L 176 H 141 H Calcium Phosphorus Iron TIBC Albumin TSH Urine WBC (Auto) Urine Creatinine Crossmatch 07/13/16 07/13/16 07/13/16 09:17 12:30 14:15 WBC RBC Hgb Hct MCH RDW Plt Count Lymph % (Auto) [place] % (Auto) Lymph # [place] # Seg Neutrophils % Seg Neuts % (Manual) Lymphocytes % (Manual) Seg Neutrophils # Seg Neutrophils # Man Lymphocytes # (Manual) D-Dimer POC ABG pH 7.475 H 7.529 H POC ABG pCO2 33.4 L 26.8 L POC ABG pO2 110 H 70 L Sodium Potassium Chloride Carbon Dioxide BUN Creatinine Glucose POC Glucose 177 H Calcium Phosphorus Iron TIBC Albumin TSH Urine WBC (Auto) Urine Creatinine Crossmatch 07/13/16 07/13/16 07/13/16 15:28 17:57 22:10 WBC RBC Hgb Hct MCH RDW Plt Count Lymph % (Auto) [place] % (Auto) Lymph # [place] # Seg Neutrophils % Seg Neuts % (Manual) Lymphocytes % (Manual) Seg Neutrophils # Seg Neutrophils # Man Lymphocytes # (Manual) D-Dimer POC ABG pH POC ABG pCO2 POC ABG pO2 Sodium Potassium Chloride Carbon Dioxide BUN Creatinine Glucose POC Glucose 122 H 166 H 197 H Calcium Phosphorus Iron TIBC Albumin TSH Urine WBC (Auto) Urine Creatinine Crossmatch 07/14/16 07/14/16 07/14/16 02:00 04:21 04:21 WBC RBC 3.01 L Hgb 8.1 L Hct 25.3 L MCH 27 L RDW 17.9 H Plt Count Lymph % (Auto) 6.1 L [place] % (Auto) Lymph # 0.5 L [place] # Seg Neutrophils % 89.9 H Seg Neuts % (Manual) Lymphocytes % (Manual) Seg Neutrophils # Seg Neutrophils # Man Lymphocytes # (Manual) D-Dimer POC ABG pH POC ABG pCO2 POC ABG pO2 Sodium 150 H Potassium Chloride 107.3 H Carbon Dioxide 21 L BUN 82 H Creatinine 4.8 H Glucose 176 H POC Glucose 166 H Calcium 6.8 L Phosphorus Iron TIBC Albumin TSH Urine WBC (Auto) Urine Creatinine Crossmatch 07/14/16 07/14/16 07/14/16 05:32 09:42 22:32 WBC RBC Hgb Hct MCH RDW Plt Count Lymph % (Auto) [place] % (Auto) Lymph # [place] # Seg Neutrophils % Seg Neuts % (Manual) Lymphocytes % (Manual) Seg Neutrophils # Seg Neutrophils # Man Lymphocytes # (Manual) D-Dimer POC ABG pH POC ABG pCO2 POC ABG pO2 Sodium Potassium Chloride Carbon Dioxide BUN Creatinine Glucose POC Glucose 202 H 216 H 191 H Calcium Phosphorus Iron TIBC Albumin TSH Urine WBC (Auto) Urine Creatinine Crossmatch 07/15/16 07/15/16 07/15/16 04:46 04:56 04:56 WBC RBC 3.04 L Hgb 8.2 L Hct 25.8 L MCH 27 L RDW 17.3 H Plt Count Lymph % (Auto) 4.2 L [place] % (Auto) 11.8 H Lymph # 0.4 L [place] # 1.1 H Seg Neutrophils % 83.9 H Seg Neuts % (Manual) Lymphocytes % (Manual) Seg Neutrophils # Seg Neutrophils # Man Lymphocytes # (Manual) D-Dimer POC ABG pH POC ABG pCO2 POC ABG pO2 Sodium 147 H Potassium 3.4 L Chloride Carbon Dioxide 20 L BUN 109 H Creatinine 5.2 H Glucose 242 H POC Glucose 275 H Calcium 6.3 L Phosphorus Iron TIBC Albumin TSH Urine WBC (Auto) Urine Creatinine Crossmatch 07/15/16 07/15/16 07/15/16 11:32 16:52 20:41 WBC RBC Hgb Hct MCH RDW Plt Count Lymph % (Auto) [place] % (Auto) Lymph # [place] # Seg Neutrophils % Seg Neuts % (Manual) Lymphocytes % (Manual) Seg Neutrophils # Seg Neutrophils # Man Lymphocytes # (Manual) D-Dimer POC ABG pH POC ABG pCO2 POC ABG pO2 Sodium Potassium Chloride Carbon Dioxide BUN Creatinine Glucose POC Glucose 250 H 195 H 219 H Calcium Phosphorus Iron TIBC Albumin TSH Urine WBC (Auto) Urine Creatinine Crossmatch 07/16/16 07/16/16 07/16/16 00:37 05:47 09:54 WBC RBC 3.20 L Hgb 8.6 L Hct 27.3 L MCH 27 L RDW 17.1 H Plt Count Lymph % (Auto) 4.2 L [place] % (Auto) Lymph # 0.3 L [place] # Seg Neutrophils % 89.6 H Seg Neuts % (Manual) Lymphocytes % (Manual) Seg Neutrophils # Seg Neutrophils # Man Lymphocytes # (Manual) D-Dimer POC ABG pH POC ABG pCO2 POC ABG pO2 Sodium Potassium Chloride Carbon Dioxide BUN Creatinine Glucose POC Glucose 257 H 223 H Calcium Phosphorus Iron TIBC Albumin TSH Urine WBC (Auto) Urine Creatinine Crossmatch 07/16/16 07/16/16 07/16/16 09:54 11:54 17:48 WBC RBC Hgb Hct MCH RDW Plt Count Lymph % (Auto) [place] % (Auto) Lymph # [place] # Seg Neutrophils % Seg Neuts % (Manual) Lymphocytes % (Manual) Seg Neutrophils # Seg Neutrophils # Man Lymphocytes # (Manual) D-Dimer POC ABG pH POC ABG pCO2 POC ABG pO2 Sodium 148 H Potassium Chloride Carbon Dioxide 21 L BUN 146 H Creatinine 6.0 H Glucose 249 H POC Glucose 294 H 195 H Calcium 6.4 L Phosphorus Iron TIBC Albumin TSH Urine WBC (Auto) Urine Creatinine Crossmatch 07/16/16 07/16/16 07/17/16 21:54 23:53 05:53 WBC RBC Hgb Hct MCH RDW Plt Count Lymph % (Auto) [place] % (Auto) Lymph # [place] # Seg Neutrophils % Seg Neuts % (Manual) Lymphocytes % (Manual) Seg Neutrophils # Seg Neutrophils # Man Lymphocytes # (Manual) D-Dimer POC ABG pH POC ABG pCO2 POC ABG pO2 Sodium Potassium Chloride Carbon Dioxide BUN Creatinine Glucose POC Glucose 161 H 171 H 208 H Calcium Phosphorus Iron TIBC Albumin TSH Urine WBC (Auto) Urine Creatinine Crossmatch 07/17/16 07/17/16 07/17/16 06:52 06:52 11:28 WBC RBC 3.17 L Hgb 8.6 L Hct 26.4 L MCH 27 L RDW 17.2 H Plt Count Lymph % (Auto) [place] % (Auto) Lymph # [place] # Seg Neutrophils % Seg Neuts % (Manual) 90.0 H Lymphocytes % (Manual) 8.0 L Seg Neutrophils # Seg Neutrophils # Man Lymphocytes # (Manual) 0.6 L D-Dimer POC ABG pH POC ABG pCO2 POC ABG pO2 Sodium Potassium Chloride Carbon Dioxide BUN 87 H Creatinine 4.2 H Glucose 231 H POC Glucose 255 H Calcium 6.2 L Phosphorus 5.2 H Iron TIBC Albumin TSH Urine WBC (Auto) Urine Creatinine Crossmatch 07/17/16 07/17/16 07/18/16 16:22 23:41 05:06 WBC RBC 3.25 L Hgb 8.8 L Hct 27.2 L MCH 27 L RDW 17.0 H Plt Count Lymph % (Auto) [place] % (Auto) Lymph # [place] # Seg Neutrophils % Seg Neuts % (Manual) 80.0 H Lymphocytes % (Manual) 10.0 L Seg Neutrophils # Seg Neutrophils # Man Lymphocytes # (Manual) 0.9 L D-Dimer POC ABG pH POC ABG pCO2 POC ABG pO2 Sodium Potassium Chloride Carbon Dioxide BUN Creatinine Glucose POC Glucose 263 H 195 H Calcium Phosphorus Iron TIBC Albumin TSH Urine WBC (Auto) Urine Creatinine Crossmatch 07/18/16 07/18/16 07/18/16 05:06 06:52 11:52 WBC RBC Hgb Hct MCH RDW Plt Count Lymph % (Auto) [place] % (Auto) Lymph # [place] # Seg Neutrophils % Seg Neuts % (Manual) Lymphocytes % (Manual) Seg Neutrophils # Seg Neutrophils # Man Lymphocytes # (Manual) D-Dimer POC ABG pH POC ABG pCO2 POC ABG pO2 Sodium Potassium Chloride 97.7 L Carbon Dioxide BUN 51 H Creatinine 2.8 H Glucose 252 H POC Glucose 289 H 242 H Calcium 6.4 L Phosphorus Iron TIBC Albumin TSH Urine WBC (Auto) Urine Creatinine Crossmatch 07/18/16 07/18/16 07/19/16 16:36 21:34 05:50 WBC RBC Hgb Hct MCH RDW Plt Count Lymph % (Auto) [place] % (Auto) Lymph # [place] # Seg Neutrophils % Seg Neuts % (Manual) Lymphocytes % (Manual) Seg Neutrophils # Seg Neutrophils # Man Lymphocytes # (Manual) D-Dimer POC ABG pH POC ABG pCO2 POC ABG pO2 Sodium Potassium Chloride Carbon Dioxide BUN Creatinine Glucose POC Glucose 221 H 210 H 273 H Calcium Phosphorus Iron TIBC Albumin TSH Urine WBC (Auto) Urine Creatinine Crossmatch 07/19/16 07/19/16 07/19/16 07:09 17:06 21:56 WBC RBC Hgb Hct MCH RDW Plt Count Lymph % (Auto) [place] % (Auto) Lymph # [place] # Seg Neutrophils % Seg Neuts % (Manual) Lymphocytes % (Manual) Seg Neutrophils # Seg Neutrophils # Man Lymphocytes # (Manual) D-Dimer POC ABG pH POC ABG pCO2 POC ABG pO2 Sodium Potassium Chloride 96.2 L Carbon Dioxide BUN 81 H Creatinine 4.9 H D Glucose 260 H POC Glucose 143 H 148 H Calcium 6.0 L Phosphorus Iron TIBC Albumin TSH Urine WBC (Auto) Urine Creatinine Crossmatch 07/20/16 07/20/16 07/20/16 05:21 06:29 11:01 WBC RBC Hgb Hct MCH RDW Plt Count Lymph % (Auto) [place] % (Auto) Lymph # [place] # Seg Neutrophils % Seg Neuts % (Manual) Lymphocytes % (Manual) Seg Neutrophils # Seg Neutrophils # Man Lymphocytes # (Manual) D-Dimer POC ABG pH POC ABG pCO2 POC ABG pO2 Sodium 136 L Potassium 3.4 L Chloride 94.4 L Carbon Dioxide BUN 43 H Creatinine 3.5 H Glucose 263 H POC Glucose 299 H 281 H Calcium 6.5 L Phosphorus Iron TIBC Albumin TSH Urine WBC (Auto) Urine Creatinine Crossmatch 07/20/16 07/20/16 07/21/16 17:07 22:54 06:24 WBC RBC Hgb Hct MCH RDW Plt Count Lymph % (Auto) [place] % (Auto) Lymph # [place] # Seg Neutrophils % Seg Neuts % (Manual) Lymphocytes % (Manual) Seg Neutrophils # Seg Neutrophils # Man Lymphocytes # (Manual) D-Dimer POC ABG pH POC ABG pCO2 POC ABG pO2 Sodium Potassium Chloride Carbon Dioxide BUN Creatinine Glucose POC Glucose 253 H 209 H 346 H Calcium Phosphorus Iron TIBC Albumin TSH Urine WBC (Auto) Urine Creatinine Crossmatch 07/21/16 07/21/16 07/21/16 07:25 15:46 21:23 WBC RBC Hgb Hct MCH RDW Plt Count Lymph % (Auto) [place] % (Auto) Lymph # [place] # Seg Neutrophils % Seg Neuts % (Manual) Lymphocytes % (Manual) Seg Neutrophils # Seg Neutrophils # Man Lymphocytes # (Manual) D-Dimer POC ABG pH POC ABG pCO2 POC ABG pO2 Sodium 133 L Potassium Chloride 90.7 L Carbon Dioxide BUN 71 H Creatinine 4.8 H Glucose 289 H POC Glucose 112 H 218 H Calcium 6.2 L Phosphorus Iron TIBC Albumin TSH Urine WBC (Auto) Urine Creatinine Crossmatch 07/22/16 07/22/16 07/22/16 06:28 11:49 16:37 WBC RBC Hgb Hct MCH RDW Plt Count Lymph % (Auto) [place] % (Auto) Lymph # [place] # Seg Neutrophils % Seg Neuts % (Manual) Lymphocytes % (Manual) Seg Neutrophils # Seg Neutrophils # Man Lymphocytes # (Manual) D-Dimer POC ABG pH POC ABG pCO2 POC ABG pO2 Sodium Potassium Chloride Carbon Dioxide BUN Creatinine Glucose POC Glucose 316 H 211 H 185 H Calcium Phosphorus Iron TIBC Albumin TSH Urine WBC (Auto) Urine Creatinine Crossmatch 07/22/16 07/23/16 07/23/16 20:24 05:19 12:10 WBC RBC Hgb Hct MCH RDW Plt Count Lymph % (Auto) [place] % (Auto) Lymph # [place] # Seg Neutrophils % Seg Neuts % (Manual) Lymphocytes % (Manual) Seg Neutrophils # Seg Neutrophils # Man Lymphocytes # (Manual) D-Dimer POC ABG pH POC ABG pCO2 POC ABG pO2 Sodium Potassium Chloride Carbon Dioxide BUN Creatinine Glucose POC Glucose 213 H 319 H 261 H Calcium Phosphorus Iron TIBC Albumin TSH Urine WBC (Auto) Urine Creatinine Crossmatch 07/23/16 07/23/16 07/24/16 15:49 20:58 05:29 WBC RBC Hgb Hct MCH RDW Plt Count Lymph % (Auto) [place] % (Auto) Lymph # [place] # Seg Neutrophils % Seg Neuts % (Manual) Lymphocytes % (Manual) Seg Neutrophils # Seg Neutrophils # Man Lymphocytes # (Manual) D-Dimer POC ABG pH POC ABG pCO2 POC ABG pO2 Sodium Potassium Chloride Carbon Dioxide BUN Creatinine Glucose POC Glucose 271 H 191 H 279 H Calcium Phosphorus Iron TIBC Albumin TSH Urine WBC (Auto) Urine Creatinine Crossmatch 07/24/16 07/24/16 07/24/16 05:53 16:20 21:31 WBC RBC Hgb Hct MCH RDW Plt Count Lymph % (Auto) [place] % (Auto) Lymph # [place] # Seg Neutrophils % Seg Neuts % (Manual) Lymphocytes % (Manual) Seg Neutrophils # Seg Neutrophils # Man Lymphocytes # (Manual) D-Dimer POC ABG pH POC ABG pCO2 POC ABG pO2 Sodium Potassium Chloride Carbon Dioxide BUN 89 H Creatinine 5.3 H Glucose 273 H POC Glucose 161 H 136 H Calcium 6.2 L Phosphorus Iron TIBC Albumin TSH Urine WBC (Auto) Urine Creatinine Crossmatch 07/25/16 07/25/16 07/25/16 06:25 11:56 16:10 WBC RBC Hgb Hct MCH RDW Plt Count Lymph % (Auto) [place] % (Auto) Lymph # [place] # Seg Neutrophils % Seg Neuts % (Manual) Lymphocytes % (Manual) Seg Neutrophils # Seg Neutrophils # Man Lymphocytes # (Manual) D-Dimer POC ABG pH POC ABG pCO2 POC ABG pO2 Sodium Potassium Chloride Carbon Dioxide BUN Creatinine Glucose POC Glucose 311 H 164 H 249 H Calcium Phosphorus Iron TIBC Albumin TSH Urine WBC (Auto) Urine Creatinine Crossmatch 12/27/16 12/28/16 12/28/16 21:13 06:19 11:31 WBC RBC Hgb Hct MCH RDW Plt Count Lymph % (Auto) [place] % (Auto) Lymph # [place] # Seg Neutrophils % Seg Neuts % (Manual) Lymphocytes % (Manual) Seg Neutrophils # Seg Neutrophils # Man Lymphocytes # (Manual) D-Dimer POC ABG pH POC ABG pCO2 POC ABG pO2 Sodium Potassium Chloride Carbon Dioxide BUN Creatinine Glucose POC Glucose 194 H 280 H 191 H Calcium Phosphorus Iron TIBC Albumin TSH Urine WBC (Auto) Urine Creatinine Crossmatch 07/26/16 07/26/16 07/26/16 12:50 12:50 13:02 WBC RBC 2.35 L Hgb 6.5 L Hct 20.0 L MCH RDW 18.4 H Plt Count 135 L Lymph % (Auto) 7.7 L [place] % (Auto) Lymph # 0.6 L [place] # Seg Neutrophils % 86.8 H Seg Neuts % (Manual) Lymphocytes % (Manual) Seg Neutrophils # Seg Neutrophils # Man Lymphocytes # (Manual) D-Dimer POC ABG pH 7.523 H POC ABG pCO2 31.3 L POC ABG pO2 Sodium Potassium Chloride Carbon Dioxide BUN 67 H Creatinine 4.9 H Glucose 139 H POC Glucose Calcium 6.1 L Phosphorus Iron TIBC Albumin TSH Urine WBC (Auto) Urine Creatinine Crossmatch 07/26/16 07/26/16 07/26/16 15:10 16:11 23:25 WBC RBC Hgb Hct MCH RDW Plt Count Lymph % (Auto) [place] % (Auto) Lymph # [place] # Seg Neutrophils % Seg Neuts % (Manual) Lymphocytes % (Manual) Seg Neutrophils # Seg Neutrophils # Man Lymphocytes # (Manual) D-Dimer POC ABG pH POC ABG pCO2 POC ABG pO2 Sodium Potassium Chloride Carbon Dioxide BUN Creatinine Glucose POC Glucose 204 H 115 H Calcium Phosphorus Iron TIBC Albumin TSH Urine WBC (Auto) Urine Creatinine Crossmatch See Detail 07/27/16 07/27/16 07/27/16 06:39 09:28 09:28 WBC RBC 3.30 L Hgb 9.4 L Hct 28.5 L D MCH RDW 16.5 H Plt Count 115 L Lymph % (Auto) [place] % (Auto) Lymph # [place] # Seg Neutrophils % 78.0 H Seg Neuts % (Manual) Lymphocytes % (Manual) Seg Neutrophils # 8.2 H Seg Neutrophils # Man Lymphocytes # (Manual) D-Dimer POC ABG pH POC ABG pCO2 POC ABG pO2 Sodium Potassium 2.6 L* D Chloride 97.7 L Carbon Dioxide BUN 36 H Creatinine 2.9 H Glucose 157 H POC Glucose 194 H Calcium 6.8 L Phosphorus Iron TIBC Albumin TSH Urine WBC (Auto) Urine Creatinine Crossmatch 07/27/16 07/27/16 07/28/16 11:06 21:17 05:56 WBC RBC Hgb Hct MCH RDW Plt Count Lymph % (Auto) [place] % (Auto) Lymph # [place] # Seg Neutrophils % Seg Neuts % (Manual) Lymphocytes % (Manual) Seg Neutrophils # Seg Neutrophils # Man Lymphocytes # (Manual) D-Dimer POC ABG pH POC ABG pCO2 POC ABG pO2 Sodium Potassium 3.2 L D Chloride Carbon Dioxide BUN 46 H Creatinine 3.5 H Glucose 205 H POC Glucose 145 H 121 H Calcium 6.8 L Phosphorus Iron TIBC Albumin TSH Urine WBC (Auto) Urine Creatinine Crossmatch 07/28/16 07/28/16 07/28/16 05:56 11:12 17:21 WBC RBC Hgb 9.1 L Hct 28.0 L MCH RDW Plt Count Lymph % (Auto) [place] % (Auto) Lymph # [place] # Seg Neutrophils % Seg Neuts % (Manual) Lymphocytes % (Manual) Seg Neutrophils # Seg Neutrophils # Man Lymphocytes # (Manual) D-Dimer POC ABG pH POC ABG pCO2 POC ABG pO2 Sodium Potassium Chloride Carbon Dioxide BUN Creatinine Glucose POC Glucose 125 H 157 H Calcium Phosphorus Iron TIBC Albumin TSH Urine WBC (Auto) Urine Creatinine Crossmatch 07/28/16 07/29/16 07/29/16 21:46 12:10 15:52 WBC RBC Hgb Hct MCH RDW Plt Count Lymph % (Auto) [place] % (Auto) Lymph # [place] # Seg Neutrophils % Seg Neuts % (Manual) Lymphocytes % (Manual) Seg Neutrophils # Seg Neutrophils # Man Lymphocytes # (Manual) D-Dimer POC ABG pH POC ABG pCO2 POC ABG pO2 Sodium Potassium Chloride Carbon Dioxide BUN Creatinine Glucose POC Glucose 190 H 169 H 145 H Calcium Phosphorus Iron TIBC Albumin TSH Urine WBC (Auto) Urine Creatinine Crossmatch 07/29/16 07/30/16 07/30/16 23:56 00:15 05:38 WBC RBC Hgb 8.5 L Hct 26.4 L MCH RDW Plt Count Lymph % (Auto) [place] % (Auto) Lymph # [place] # Seg Neutrophils % Seg Neuts % (Manual) Lymphocytes % (Manual) Seg Neutrophils # Seg Neutrophils # Man Lymphocytes # (Manual) D-Dimer POC ABG pH POC ABG pCO2 POC ABG pO2 Sodium Potassium Chloride Carbon Dioxide BUN Creatinine Glucose POC Glucose 166 H Calcium Phosphorus Iron 23 L TIBC 142 L Albumin TSH Urine WBC (Auto) Urine Creatinine Crossmatch 07/30/16 07/30/16 07/30/16 05:38 06:19 11:25 WBC RBC Hgb Hct MCH RDW Plt Count Lymph % (Auto) [place] % (Auto) Lymph # [place] # Seg Neutrophils % Seg Neuts % (Manual) Lymphocytes % (Manual) Seg Neutrophils # Seg Neutrophils # Man Lymphocytes # (Manual) D-Dimer POC ABG pH POC ABG pCO2 POC ABG pO2 Sodium Potassium Chloride Carbon Dioxide BUN 40 H Creatinine 3.5 H Glucose 151 H POC Glucose 167 H 117 H Calcium 7.1 L Phosphorus Iron TIBC Albumin TSH Urine WBC (Auto) Urine Creatinine Crossmatch 07/30/16 07/30/16 07/31/16 16:29 22:12 06:34 WBC RBC Hgb Hct MCH RDW Plt Count Lymph % (Auto) [place] % (Auto) Lymph # [place] # Seg Neutrophils % Seg Neuts % (Manual) Lymphocytes % (Manual) Seg Neutrophils # Seg Neutrophils # Man Lymphocytes # (Manual) D-Dimer POC ABG pH POC ABG pCO2 POC ABG pO2 Sodium Potassium Chloride Carbon Dioxide BUN Creatinine Glucose POC Glucose 146 H 150 H 148 H Calcium Phosphorus Iron TIBC Albumin TSH Urine WBC (Auto) Urine Creatinine Crossmatch 07/31/16 07/31/16 07/31/16 08:16 08:16 11:26 WBC RBC Hgb 8.1 L Hct 24.9 L MCH RDW Plt Count Lymph % (Auto) [place] % (Auto) Lymph # [place] # Seg Neutrophils % Seg Neuts % (Manual) Lymphocytes % (Manual) Seg Neutrophils # Seg Neutrophils # Man Lymphocytes # (Manual) D-Dimer POC ABG pH POC ABG pCO2 POC ABG pO2 Sodium Potassium Chloride Carbon Dioxide BUN 52 H Creatinine 4.0 H Glucose 152 H POC Glucose 137 H Calcium 6.9 L Phosphorus Iron TIBC Albumin TSH Urine WBC (Auto) Urine Creatinine Crossmatch 08/01/16 08/01/16 08/01/16 00:14 02:49 05:22 WBC RBC 3.09 L Hgb 8.6 L Hct 26.9 L MCH RDW 16.5 H Plt Count 107 L Lymph % (Auto) [place] % (Auto) Lymph # [place] # Seg Neutrophils % Seg Neuts % (Manual) Lymphocytes % (Manual) Seg Neutrophils # Seg Neutrophils # Man Lymphocytes # (Manual) D-Dimer POC ABG pH POC ABG pCO2 POC ABG pO2 Sodium Potassium Chloride Carbon Dioxide BUN Creatinine Glucose POC Glucose 172 H 140 H Calcium Phosphorus Iron TIBC Albumin TSH Urine WBC (Auto) Urine Creatinine Crossmatch 08/01/16 08/02/16 11:18 05:50 WBC RBC Hgb Hct MCH RDW Plt Count Lymph % (Auto) [place] % (Auto) Lymph # [place] # Seg Neutrophils % Seg Neuts % (Manual) Lymphocytes % (Manual) Seg Neutrophils # Seg Neutrophils # Man Lymphocytes # (Manual) D-Dimer POC ABG pH POC ABG pCO2 POC ABG pO2 Sodium Potassium Chloride Carbon Dioxide BUN Creatinine Glucose POC Glucose 116 H 111 H Calcium Phosphorus Iron TIBC Albumin TSH Urine WBC (Auto) Urine Creatinine Crossmatch
[2016-08-03] MEDS: HEPARIN SUB-Q SCH ×3 (06:17→22:07)
[2016-08-03] MEDS: SYNTHROID PO SCH (06:18)
[2016-08-03] MEDS: APRESOLINE FEEDTUBE SCH ×3 (06:18→22:06)
[2016-08-03] MEDS: NOVOLOG SUB-Q SCH ×4 (08:16→23:35)
--- NOTE | 2016-08-03 08:44 | Progress Note ---
Assessment and Plan - GABRIELA remains dialysis dependent. Possibly ESRD - ? Underlying CKD - DM2 - encephalopathy -Hypothyroidism. -Hypertension - SVT in the cephalic vein PLAN: - Continue HD MWF - Monitor renal function for recovery - Awaiting outpatient placement. - Remove muse catheter. - Stop IVF - Free water replacement. Subjective Date of service: 08/03/16 Principal diagnosis: Acute Respiratory Failure; Angioedema Interval history: Patient is drowsy. No overnight events reported by the nurse. Objective - Exam Narrative Exam: chronically ill, no distress EENT: PERRL, dry oral mucosa Neck: no JVD Respiratory:Unlaboured, Few coarse rales in both lung [place] Cardiology: regular, S1S2, 3/6 PSM. No pericardial friction rub. No parasternal heave Gastrointestinal: Soft. BS+ PEG tube + Integumentary: Pallor+ Neurologic:Lethargic RIJ permcath+ Muse+ - Vital Signs Vital signs: Vital Signs - 12hr 08/02/16 08/02/16 08/03/16 21:06 23:49 05:00 Temperature 99 F Pulse Rate 88 Pulse Rate [ 84 Right Radial] Respiratory 18 Rate Respiratory 20 Rate [denies pain] Blood Pressure 125/60 Blood Pressure 113/56 [Right Arm] O2 Sat by Pulse 97 Oximetry 08/03/16 05:10 Temperature 98.3 F Pulse Rate Pulse Rate [ 76 Right Radial] Respiratory 17 Rate Respiratory Rate [denies pain] Blood Pressure Blood Pressure 125/58 [Right Arm] O2 Sat by Pulse 97 Oximetry - Lab 08/01/16 02:49 07/31/16 08:16 Most recent lab results Calcium 6.9 mg/dL (8.4-10.2) L 07/31/16 08:16 Phosphorus 5.2 mg/dL (2.5-4.5) H 07/17/16 06:52 Magnesium 1.9 mg/dL (1.7-2.3) 07/17/16 06:52 Urine Creatinine 36.6 mg/dL (0.1-20.0) H 07/06/16 01:18 Urine Sodium 28 mEq/L 07/06/16 01:18
[2016-08-03 11:32] LABS: ISTAT Base Excess 4; ISTAT DEVICE 0; ISTAT HCO3 28.1; ISTAT PCO2 38.4 (35-45); ISTAT PH 7.472 (7.35-7.45); ISTAT PO2 83 (80-105); ISTAT SO2 97; ISTAT TCO2 29
[2016-08-03] MEDS: NORMODYNE PO SCH ×3 (12:12→20:26)
[2016-08-03] MEDS: PEPCID PO SCH (12:13)
[2016-08-03] MEDS: NEURONTIN PO SCH ×2 (12:13→22:06)
--- NOTE | 2016-08-03 13:19 | Progress Note ---
Assessment and Plan - Patient Problems (1) Bipolar disorder Current Visit: No Status: Acute Qualifiers: Active/Remission status: remission status unspecified Most recent bipolar episode type: most recent episode unspecified type Plan to address problem: - no clinical exacerbation (2) Renal failure (ARF), acute on chronic Current Visit: No Status: Acute Plan to address problem: - HD/UF per nephrology - follow electrolytes and correct as necessary (3) Malignant hypertension Current Visit: No Status: Chronic Plan to address problem: - resolved - titrate p.o. antiHTNsives (4) Acute respiratory failure Current Visit: Yes Status: Resolved Plan to address problem: - continue supplemental oxygen to keep sats > 92% - continue aspiration precautions (5) Angioedema Current Visit: Yes Status: Acute Plan to address problem: - resolved Subjective Date of service: 08/03/16 Principal diagnosis: Acute Respiratory Failure; Angioedema Interval history: Seen and examined at bedside; 24 hour events reviewed; nursing and respiratory care staff consulted; no adverse overnight events reported to me; resting peacefully in bed; s/p EGD/PEG; no acute distress but remains on supplemental oxygen Objective Vital Signs - 12hr 08/03/16 08/03/16 08/03/16 05:00 05:10 08:40 Temperature 98.3 F 97.9 F Pulse Rate [ 82 Apical] Pulse Rate [ 76 Right Radial] Respiratory 17 20 Rate Respiratory 20 Rate [denies pain] Blood Pressure 125/58 102/52 [Right Arm] O2 Sat by Pulse 97 100 Oximetry Constitutional: no acute distress, asleep Eyes: non-icteric ENT: oropharynx moist Neck: supple, no lymphadenopathy Effort: normal Ascultation: Bilateral: clear, diminished breath sounds (bases) Cardiovascular: regular rate and rhythm Gastrointestinal: normoactive bowel sounds, soft, non-tender, non-distended Integumentary: normal Extremities: no cyanosis, no edema, pulses normal, no ischemia or petechiae Neurologic: non-focal exam (grossly), pupils equal and round, CN II-XII normal Psychiatric: other (somnolent) CBC and BMP: 08/04/16 07:24 08/04/16 07:24 ABG, PT/INR, D-dimer: ABG POC ABG pH 7.472 (7.35-7.45) H 08/03/16 10:22 POC ABG pCO2 38.4 (35-45) 08/03/16 10:22 POC ABG pO2 83 (80-105) 08/03/16 10:22 POC ABG HCO3 28.1 08/03/16 10:22 POC ABG Total CO2 29 08/03/16 10:22 POC ABG O2 Sat 97 08/03/16 10:22 PT/INR, D-dimer PT 12.8 Sec. (12.2-14.9) 08/01/16 02:49 INR 0.97 (0.87-1.13) 08/01/16 02:49 D-Dimer 751.80 ng/mlDDU (0-234) H 07/11/16 12:22 Abnormal lab findings: Abnormal Labs 07/03/16 07/03/16 07/04/16 14:34 14:34 06:21 WBC 3.9 L RBC 3.16 L 3.04 L Hgb 8.5 L 8.0 L Hct 26.8 L 25.6 L MCH 27 L 26 L RDW 16.5 H 16.2 H Plt Count Lymph % (Auto) [place] % (Auto) 10.7 H 10.7 H Lymph # 1.0 L [place] # Seg Neutrophils % Seg Neuts % (Manual) Lymphocytes % (Manual) Seg Neutrophils # Seg Neutrophils # Man Lymphocytes # (Manual) D-Dimer POC ABG pH POC ABG pCO2 POC ABG pO2 Sodium Potassium Chloride 107.6 H Carbon Dioxide BUN 27 H Creatinine 2.6 H Glucose POC Glucose Calcium 8.0 L Phosphorus Iron TIBC Albumin TSH Urine WBC (Auto) Urine Creatinine Crossmatch 07/04/16 07/04/16 07/04/16 06:21 11:30 16:33 WBC RBC Hgb Hct MCH RDW Plt Count Lymph % (Auto) [place] % (Auto) Lymph # [place] # Seg Neutrophils % Seg Neuts % (Manual) Lymphocytes % (Manual) Seg Neutrophils # Seg Neutrophils # Man Lymphocytes # (Manual) D-Dimer POC ABG pH POC ABG pCO2 POC ABG pO2 Sodium Potassium Chloride 107.4 H Carbon Dioxide 21 L BUN 27 H Creatinine 2.7 H Glucose POC Glucose 110 H 106 H Calcium 7.8 L Phosphorus Iron TIBC Albumin TSH Urine WBC (Auto) Urine Creatinine Crossmatch 07/05/16 07/05/16 07/05/16 05:08 05:08 05:08 WBC 4.0 L RBC 2.87 L Hgb 7.7 L Hct 24.2 L MCH 27 L RDW 16.0 H Plt Count Lymph % (Auto) [place] % (Auto) Lymph # [place] # Seg Neutrophils % Seg Neuts % (Manual) Lymphocytes % (Manual) Seg Neutrophils # Seg Neutrophils # Man Lymphocytes # (Manual) D-Dimer POC ABG pH POC ABG pCO2 POC ABG pO2 Sodium Potassium Chloride Carbon Dioxide 21 L BUN 32 H Creatinine 3.7 H Glucose POC Glucose Calcium 7.8 L Phosphorus Iron TIBC Albumin TSH 8.090 H Urine WBC (Auto) Urine Creatinine Crossmatch 07/05/16 07/06/16 07/06/16 11:45 01:18 01:18 WBC RBC Hgb 8.3 L Hct 25.9 L MCH RDW Plt Count Lymph % (Auto) [place] % (Auto) Lymph # [place] # Seg Neutrophils % Seg Neuts % (Manual) Lymphocytes % (Manual) Seg Neutrophils # Seg Neutrophils # Man Lymphocytes # (Manual) D-Dimer POC ABG pH POC ABG pCO2 POC ABG pO2 Sodium Potassium Chloride Carbon Dioxide BUN Creatinine Glucose POC Glucose Calcium Phosphorus Iron TIBC Albumin TSH Urine WBC (Auto) 7.0 H Urine Creatinine 36.6 H Crossmatch 07/06/16 07/06/16 07/06/16 05:55 05:55 16:07 WBC 3.0 L RBC 2.79 L Hgb 7.5 L Hct 23.5 L MCH 27 L RDW 16.5 H Plt Count Lymph % (Auto) [place] % (Auto) Lymph # [place] # Seg Neutrophils % Seg Neuts % (Manual) Lymphocytes % (Manual) Seg Neutrophils # Seg Neutrophils # Man Lymphocytes # (Manual) D-Dimer POC ABG pH POC ABG pCO2 POC ABG pO2 Sodium Potassium Chloride 109.3 H Carbon Dioxide 20 L BUN 32 H Creatinine 3.4 H Glucose POC Glucose 117 H Calcium 7.5 L Phosphorus Iron TIBC Albumin TSH Urine WBC (Auto) Urine Creatinine Crossmatch 07/07/16 07/07/16 07/08/16 06:19 16:13 00:09 WBC RBC Hgb Hct MCH RDW Plt Count Lymph % (Auto) [place] % (Auto) Lymph # [place] # Seg Neutrophils % Seg Neuts % (Manual) Lymphocytes % (Manual) Seg Neutrophils # Seg Neutrophils # Man Lymphocytes # (Manual) D-Dimer POC ABG pH POC ABG pCO2 POC ABG pO2 Sodium Potassium Chloride 111.1 H Carbon Dioxide 20 L BUN 31 H Creatinine 3.1 H Glucose POC Glucose 108 H 134 H Calcium 8.0 L Phosphorus Iron TIBC Albumin TSH Urine WBC (Auto) Urine Creatinine Crossmatch 07/08/16 07/08/16 07/08/16 11:39 16:31 21:22 WBC RBC Hgb Hct MCH RDW Plt Count Lymph % (Auto) [place] % (Auto) Lymph # [place] # Seg Neutrophils % Seg Neuts % (Manual) Lymphocytes % (Manual) Seg Neutrophils # Seg Neutrophils # Man Lymphocytes # (Manual) D-Dimer POC ABG pH POC ABG pCO2 POC ABG pO2 Sodium Potassium Chloride Carbon Dioxide BUN Creatinine Glucose POC Glucose 119 H 130 H 152 H Calcium Phosphorus Iron TIBC Albumin TSH Urine WBC (Auto) Urine Creatinine Crossmatch 07/09/16 07/09/16 07/09/16 05:52 05:52 06:02 WBC RBC 3.55 L Hgb 9.4 L Hct MCH 27 L RDW 17.1 H Plt Count Lymph % (Auto) [place] % (Auto) Lymph # [place] # Seg Neutrophils % Seg Neuts % (Manual) Lymphocytes % (Manual) Seg Neutrophils # Seg Neutrophils # Man Lymphocytes # (Manual) D-Dimer POC ABG pH POC ABG pCO2 POC ABG pO2 Sodium 147 H Potassium 5.4 H Chloride 112.8 H Carbon Dioxide 21 L BUN 30 H Creatinine 2.5 H Glucose 21 L* POC Glucose < 40 L Calcium Phosphorus Iron TIBC Albumin TSH Urine WBC (Auto) Urine Creatinine Crossmatch 07/09/16 07/09/16 07/10/16 11:31 16:50 05:23 WBC RBC Hgb Hct MCH RDW Plt Count Lymph % (Auto) [place] % (Auto) Lymph # [place] # Seg Neutrophils % Seg Neuts % (Manual) Lymphocytes % (Manual) Seg Neutrophils # Seg Neutrophils # Man Lymphocytes # (Manual) D-Dimer POC ABG pH POC ABG pCO2 POC ABG pO2 Sodium Potassium Chloride Carbon Dioxide BUN Creatinine Glucose POC Glucose 114 H 149 H < 40 L Calcium Phosphorus Iron TIBC Albumin TSH Urine WBC (Auto) Urine Creatinine Crossmatch 07/10/16 07/10/16 07/10/16 06:03 06:43 06:43 WBC RBC 2.90 L Hgb 7.7 L Hct 25.0 L MCH 27 L RDW 17.0 H Plt Count Lymph % (Auto) [place] % (Auto) 10.4 H Lymph # 1.1 L [place] # Seg Neutrophils % Seg Neuts % (Manual) Lymphocytes % (Manual) Seg Neutrophils # Seg Neutrophils # Man Lymphocytes # (Manual) D-Dimer POC ABG pH POC ABG pCO2 POC ABG pO2 Sodium 148 H Potassium 5.1 H Chloride 111.7 H Carbon Dioxide 20 L BUN 31 H Creatinine 2.4 H Glucose POC Glucose 211 H Calcium 8.0 L Phosphorus Iron TIBC Albumin 3.5 L TSH Urine WBC (Auto) Urine Creatinine Crossmatch 07/10/16 07/11/16 07/11/16 14:55 05:37 05:47 WBC RBC Hgb 7.9 L Hct 25.5 L MCH RDW Plt Count Lymph % (Auto) [place] % (Auto) Lymph # [place] # Seg Neutrophils % Seg Neuts % (Manual) Lymphocytes % (Manual) Seg Neutrophils # Seg Neutrophils # Man Lymphocytes # (Manual) D-Dimer POC ABG pH POC ABG pCO2 POC ABG pO2 Sodium Potassium Chloride Carbon Dioxide BUN Creatinine Glucose POC Glucose < 40 L > 500 H Calcium Phosphorus Iron TIBC Albumin TSH Urine WBC (Auto) Urine Creatinine Crossmatch 07/11/16 07/11/16 07/11/16 05:56 07:42 07:48 WBC RBC Hgb Hct MCH RDW Plt Count Lymph % (Auto) [place] % (Auto) Lymph # [place] # Seg Neutrophils % Seg Neuts % (Manual) Lymphocytes % (Manual) Seg Neutrophils # Seg Neutrophils # Man Lymphocytes # (Manual) D-Dimer POC ABG pH POC ABG pCO2 POC ABG pO2 Sodium Potassium Chloride Carbon Dioxide BUN Creatinine Glucose POC Glucose 262 H 56 L 54 L Calcium Phosphorus Iron TIBC Albumin TSH Urine WBC (Auto) Urine Creatinine Crossmatch 07/11/16 07/11/16 07/11/16 08:34 08:50 09:53 WBC RBC Hgb Hct MCH RDW Plt Count Lymph % (Auto) [place] % (Auto) Lymph # [place] # Seg Neutrophils % Seg Neuts % (Manual) Lymphocytes % (Manual) Seg Neutrophils # Seg Neutrophils # Man Lymphocytes # (Manual) D-Dimer POC ABG pH POC ABG pCO2 31.1 L POC ABG pO2 108 H Sodium Potassium Chloride Carbon Dioxide BUN Creatinine Glucose POC Glucose 110 H 68 L Calcium Phosphorus Iron TIBC Albumin TSH Urine WBC (Auto) Urine Creatinine Crossmatch 07/11/16 07/11/16 07/11/16 11:48 12:22 12:22 WBC 11.6 H RBC Hgb Hct MCH 27 L RDW 17.2 H Plt Count Lymph % (Auto) [place] % (Auto) Lymph # [place] # Seg Neutrophils % Seg Neuts % (Manual) 91.0 H Lymphocytes % (Manual) 5.0 L Seg Neutrophils # 10.8 H Seg Neutrophils # Man 10.6 H Lymphocytes # (Manual) 0.6 L D-Dimer 751.80 H POC ABG pH POC ABG pCO2 POC ABG pO2 Sodium Potassium Chloride Carbon Dioxide BUN Creatinine Glucose POC Glucose 118 H Calcium Phosphorus Iron TIBC Albumin TSH Urine WBC (Auto) Urine Creatinine Crossmatch 07/11/16 07/11/16 07/11/16 12:22 12:29 15:23 WBC RBC Hgb Hct MCH RDW Plt Count Lymph % (Auto) [place] % (Auto) Lymph # [place] # Seg Neutrophils % Seg Neuts % (Manual) Lymphocytes % (Manual) Seg Neutrophils # Seg Neutrophils # Man Lymphocytes # (Manual) D-Dimer POC ABG pH POC ABG pCO2 28.4 L POC ABG pO2 Sodium Potassium 6.1 H* Chloride 109.4 H Carbon Dioxide 18 L BUN 30 H Creatinine 2.1 H Glucose 126 H POC Glucose 204 H Calcium Phosphorus Iron TIBC Albumin TSH Urine WBC (Auto) Urine Creatinine Crossmatch 07/11/16 07/11/16 07/11/16 17:27 17:55 21:42 WBC RBC Hgb Hct MCH RDW Plt Count Lymph % (Auto) [place] % (Auto) Lymph # [place] # Seg Neutrophils % Seg Neuts % (Manual) Lymphocytes % (Manual) Seg Neutrophils # Seg Neutrophils # Man Lymphocytes # (Manual) D-Dimer POC ABG pH POC ABG pCO2 POC ABG pO2 Sodium 146 H Potassium 6.5 H* Chloride 109.7 H Carbon Dioxide 20 L BUN 32 H Creatinine 2.4 H Glucose 167 H POC Glucose 433 H 142 H Calcium Phosphorus Iron TIBC Albumin TSH Urine WBC (Auto) Urine Creatinine Crossmatch 07/12/16 07/12/16 07/12/16 04:34 04:34 05:22 WBC 14.0 H RBC Hgb Hct MCH 27 L RDW 17.6 H Plt Count 113 L Lymph % (Auto) [place] % (Auto) Lymph # [place] # Seg Neutrophils % Seg Neuts % (Manual) 87.0 H Lymphocytes % (Manual) 11.0 L Seg Neutrophils # Seg Neutrophils # Man 12.2 H Lymphocytes # (Manual) D-Dimer POC ABG pH 7.452 H POC ABG pCO2 29.6 L POC ABG pO2 Sodium Potassium 6.8 H* Chloride 110.2 H Carbon Dioxide 16 L BUN 43 H Creatinine 2.9 H Glucose 113 H POC Glucose Calcium Phosphorus Iron TIBC Albumin TSH Urine WBC (Auto) Urine Creatinine Crossmatch 07/12/16 07/12/16 07/12/16 13:24 17:28 21:11 WBC RBC Hgb Hct MCH RDW Plt Count Lymph % (Auto) [place] % (Auto) Lymph # [place] # Seg Neutrophils % Seg Neuts % (Manual) Lymphocytes % (Manual) Seg Neutrophils # Seg Neutrophils # Man Lymphocytes # (Manual) D-Dimer POC ABG pH POC ABG pCO2 POC ABG pO2 Sodium 150 H Potassium Chloride 108.9 H Carbon Dioxide 21 L BUN 52 H Creatinine 3.7 H Glucose 143 H POC Glucose 148 H 134 H Calcium 8.0 L Phosphorus Iron TIBC Albumin TSH Urine WBC (Auto) Urine Creatinine Crossmatch 07/12/16 07/13/16 07/13/16 21:50 04:40 04:40 WBC 14.0 H RBC 3.50 L Hgb 9.3 L Hct 29.3 L MCH 27 L RDW 17.3 H Plt Count Lymph % (Auto) 4.9 L [place] % (Auto) Lymph # 0.7 L [place] # Seg Neutrophils % 90.0 H Seg Neuts % (Manual) 93.0 H Lymphocytes % (Manual) 5.0 L Seg Neutrophils # 12.6 H Seg Neutrophils # Man 13.0 H Lymphocytes # (Manual) 0.7 L D-Dimer POC ABG pH POC ABG pCO2 POC ABG pO2 Sodium 151 H Potassium Chloride 109.3 H Carbon Dioxide BUN 59 H Creatinine 4.0 H Glucose 63 L POC Glucose 156 H Calcium 7.7 L Phosphorus Iron TIBC Albumin TSH Urine WBC (Auto) Urine Creatinine Crossmatch 07/13/16 07/13/16 07/13/16 06:10 06:40 08:03 WBC RBC Hgb Hct MCH RDW Plt Count Lymph % (Auto) [place] % (Auto) Lymph # [place] # Seg Neutrophils % Seg Neuts % (Manual) Lymphocytes % (Manual) Seg Neutrophils # Seg Neutrophils # Man Lymphocytes # (Manual) D-Dimer POC ABG pH POC ABG pCO2 POC ABG pO2 Sodium Potassium Chloride Carbon Dioxide BUN Creatinine Glucose POC Glucose 68 L 176 H 141 H Calcium Phosphorus Iron TIBC Albumin TSH Urine WBC (Auto) Urine Creatinine Crossmatch 07/13/16 07/13/16 07/13/16 09:17 12:30 14:15 WBC RBC Hgb Hct MCH RDW Plt Count Lymph % (Auto) [place] % (Auto) Lymph # [place] # Seg Neutrophils % Seg Neuts % (Manual) Lymphocytes % (Manual) Seg Neutrophils # Seg Neutrophils # Man Lymphocytes # (Manual) D-Dimer POC ABG pH 7.475 H 7.529 H POC ABG pCO2 33.4 L 26.8 L POC ABG pO2 110 H 70 L Sodium Potassium Chloride Carbon Dioxide BUN Creatinine Glucose POC Glucose 177 H Calcium Phosphorus Iron TIBC Albumin TSH Urine WBC (Auto) Urine Creatinine Crossmatch 07/13/16 07/13/16 07/13/16 15:28 17:57 22:10 WBC RBC Hgb Hct MCH RDW Plt Count Lymph % (Auto) [place] % (Auto) Lymph # [place] # Seg Neutrophils % Seg Neuts % (Manual) Lymphocytes % (Manual) Seg Neutrophils # Seg Neutrophils # Man Lymphocytes # (Manual) D-Dimer POC ABG pH POC ABG pCO2 POC ABG pO2 Sodium Potassium Chloride Carbon Dioxide BUN Creatinine Glucose POC Glucose 122 H 166 H 197 H Calcium Phosphorus Iron TIBC Albumin TSH Urine WBC (Auto) Urine Creatinine Crossmatch 07/14/16 07/14/16 07/14/16 02:00 04:21 04:21 WBC RBC 3.01 L Hgb 8.1 L Hct 25.3 L MCH 27 L RDW 17.9 H Plt Count Lymph % (Auto) 6.1 L [place] % (Auto) Lymph # 0.5 L [place] # Seg Neutrophils % 89.9 H Seg Neuts % (Manual) Lymphocytes % (Manual) Seg Neutrophils # Seg Neutrophils # Man Lymphocytes # (Manual) D-Dimer POC ABG pH POC ABG pCO2 POC ABG pO2 Sodium 150 H Potassium Chloride 107.3 H Carbon Dioxide 21 L BUN 82 H Creatinine 4.8 H Glucose 176 H POC Glucose 166 H Calcium 6.8 L Phosphorus Iron TIBC Albumin TSH Urine WBC (Auto) Urine Creatinine Crossmatch 07/14/16 07/14/16 07/14/16 05:32 09:42 22:32 WBC RBC Hgb Hct MCH RDW Plt Count Lymph % (Auto) [place] % (Auto) Lymph # [place] # Seg Neutrophils % Seg Neuts % (Manual) Lymphocytes % (Manual) Seg Neutrophils # Seg Neutrophils # Man Lymphocytes # (Manual) D-Dimer POC ABG pH POC ABG pCO2 POC ABG pO2 Sodium Potassium Chloride Carbon Dioxide BUN Creatinine Glucose POC Glucose 202 H 216 H 191 H Calcium Phosphorus Iron TIBC Albumin TSH Urine WBC (Auto) Urine Creatinine Crossmatch 07/15/16 07/15/16 07/15/16 04:46 04:56 04:56 WBC RBC 3.04 L Hgb 8.2 L Hct 25.8 L MCH 27 L RDW 17.3 H Plt Count Lymph % (Auto) 4.2 L [place] % (Auto) 11.8 H Lymph # 0.4 L [place] # 1.1 H Seg Neutrophils % 83.9 H Seg Neuts % (Manual) Lymphocytes % (Manual) Seg Neutrophils # Seg Neutrophils # Man Lymphocytes # (Manual) D-Dimer POC ABG pH POC ABG pCO2 POC ABG pO2 Sodium 147 H Potassium 3.4 L Chloride Carbon Dioxide 20 L BUN 109 H Creatinine 5.2 H Glucose 242 H POC Glucose 275 H Calcium 6.3 L Phosphorus Iron TIBC Albumin TSH Urine WBC (Auto) Urine Creatinine Crossmatch 07/15/16 07/15/16 07/15/16 11:32 16:52 20:41 WBC RBC Hgb Hct MCH RDW Plt Count Lymph % (Auto) [place] % (Auto) Lymph # [place] # Seg Neutrophils % Seg Neuts % (Manual) Lymphocytes % (Manual) Seg Neutrophils # Seg Neutrophils # Man Lymphocytes # (Manual) D-Dimer POC ABG pH POC ABG pCO2 POC ABG pO2 Sodium Potassium Chloride Carbon Dioxide BUN Creatinine Glucose POC Glucose 250 H 195 H 219 H Calcium Phosphorus Iron TIBC Albumin TSH Urine WBC (Auto) Urine Creatinine Crossmatch 07/16/16 07/16/16 07/16/16 00:37 05:47 09:54 WBC RBC 3.20 L Hgb 8.6 L Hct 27.3 L MCH 27 L RDW 17.1 H Plt Count Lymph % (Auto) 4.2 L [place] % (Auto) Lymph # 0.3 L [place] # Seg Neutrophils % 89.6 H Seg Neuts % (Manual) Lymphocytes % (Manual) Seg Neutrophils # Seg Neutrophils # Man Lymphocytes # (Manual) D-Dimer POC ABG pH POC ABG pCO2 POC ABG pO2 Sodium Potassium Chloride Carbon Dioxide BUN Creatinine Glucose POC Glucose 257 H 223 H Calcium Phosphorus Iron TIBC Albumin TSH Urine WBC (Auto) Urine Creatinine Crossmatch 07/16/16 07/16/16 07/16/16 09:54 11:54 17:48 WBC RBC Hgb Hct MCH RDW Plt Count Lymph % (Auto) [place] % (Auto) Lymph # [place] # Seg Neutrophils % Seg Neuts % (Manual) Lymphocytes % (Manual) Seg Neutrophils # Seg Neutrophils # Man Lymphocytes # (Manual) D-Dimer POC ABG pH POC ABG pCO2 POC ABG pO2 Sodium 148 H Potassium Chloride Carbon Dioxide 21 L BUN 146 H Creatinine 6.0 H Glucose 249 H POC Glucose 294 H 195 H Calcium 6.4 L Phosphorus Iron TIBC Albumin TSH Urine WBC (Auto) Urine Creatinine Crossmatch 07/16/16 07/16/16 07/17/16 21:54 23:53 05:53 WBC RBC Hgb Hct MCH RDW Plt Count Lymph % (Auto) [place] % (Auto) Lymph # [place] # Seg Neutrophils % Seg Neuts % (Manual) Lymphocytes % (Manual) Seg Neutrophils # Seg Neutrophils # Man Lymphocytes # (Manual) D-Dimer POC ABG pH POC ABG pCO2 POC ABG pO2 Sodium Potassium Chloride Carbon Dioxide BUN Creatinine Glucose POC Glucose 161 H 171 H 208 H Calcium Phosphorus Iron TIBC Albumin TSH Urine WBC (Auto) Urine Creatinine Crossmatch 07/17/16 07/17/16 07/17/16 06:52 06:52 11:28 WBC RBC 3.17 L Hgb 8.6 L Hct 26.4 L MCH 27 L RDW 17.2 H Plt Count Lymph % (Auto) [place] % (Auto) Lymph # [place] # Seg Neutrophils % Seg Neuts % (Manual) 90.0 H Lymphocytes % (Manual) 8.0 L Seg Neutrophils # Seg Neutrophils # Man Lymphocytes # (Manual) 0.6 L D-Dimer POC ABG pH POC ABG pCO2 POC ABG pO2 Sodium Potassium Chloride Carbon Dioxide BUN 87 H Creatinine 4.2 H Glucose 231 H POC Glucose 255 H Calcium 6.2 L Phosphorus 5.2 H Iron TIBC Albumin TSH Urine WBC (Auto) Urine Creatinine Crossmatch 07/17/16 07/17/16 07/18/16 16:22 23:41 05:06 WBC RBC 3.25 L Hgb 8.8 L Hct 27.2 L MCH 27 L RDW 17.0 H Plt Count Lymph % (Auto) [place] % (Auto) Lymph # [place] # Seg Neutrophils % Seg Neuts % (Manual) 80.0 H Lymphocytes % (Manual) 10.0 L Seg Neutrophils # Seg Neutrophils # Man Lymphocytes # (Manual) 0.9 L D-Dimer POC ABG pH POC ABG pCO2 POC ABG pO2 Sodium Potassium Chloride Carbon Dioxide BUN Creatinine Glucose POC Glucose 263 H 195 H Calcium Phosphorus Iron TIBC Albumin TSH Urine WBC (Auto) Urine Creatinine Crossmatch 07/18/16 07/18/16 07/18/16 05:06 06:52 11:52 WBC RBC Hgb Hct MCH RDW Plt Count Lymph % (Auto) [place] % (Auto) Lymph # [place] # Seg Neutrophils % Seg Neuts % (Manual) Lymphocytes % (Manual) Seg Neutrophils # Seg Neutrophils # Man Lymphocytes # (Manual) D-Dimer POC ABG pH POC ABG pCO2 POC ABG pO2 Sodium Potassium Chloride 97.7 L Carbon Dioxide BUN 51 H Creatinine 2.8 H Glucose 252 H POC Glucose 289 H 242 H Calcium 6.4 L Phosphorus Iron TIBC Albumin TSH Urine WBC (Auto) Urine Creatinine Crossmatch 07/18/16 07/18/16 07/19/16 16:36 21:34 05:50 WBC RBC Hgb Hct MCH RDW Plt Count Lymph % (Auto) [place] % (Auto) Lymph # [place] # Seg Neutrophils % Seg Neuts % (Manual) Lymphocytes % (Manual) Seg Neutrophils # Seg Neutrophils # Man Lymphocytes # (Manual) D-Dimer POC ABG pH POC ABG pCO2 POC ABG pO2 Sodium Potassium Chloride Carbon Dioxide BUN Creatinine Glucose POC Glucose 221 H 210 H 273 H Calcium Phosphorus Iron TIBC Albumin TSH Urine WBC (Auto) Urine Creatinine Crossmatch 07/19/16 07/19/16 07/19/16 07:09 17:06 21:56 WBC RBC Hgb Hct MCH RDW Plt Count Lymph % (Auto) [place] % (Auto) Lymph # [place] # Seg Neutrophils % Seg Neuts % (Manual) Lymphocytes % (Manual) Seg Neutrophils # Seg Neutrophils # Man Lymphocytes # (Manual) D-Dimer POC ABG pH POC ABG pCO2 POC ABG pO2 Sodium Potassium Chloride 96.2 L Carbon Dioxide BUN 81 H Creatinine 4.9 H D Glucose 260 H POC Glucose 143 H 148 H Calcium 6.0 L Phosphorus Iron TIBC Albumin TSH Urine WBC (Auto) Urine Creatinine Crossmatch 07/20/16 07/20/16 07/20/16 05:21 06:29 11:01 WBC RBC Hgb Hct MCH RDW Plt Count Lymph % (Auto) [place] % (Auto) Lymph # [place] # Seg Neutrophils % Seg Neuts % (Manual) Lymphocytes % (Manual) Seg Neutrophils # Seg Neutrophils # Man Lymphocytes # (Manual) D-Dimer POC ABG pH POC ABG pCO2 POC ABG pO2 Sodium 136 L Potassium 3.4 L Chloride 94.4 L Carbon Dioxide BUN 43 H Creatinine 3.5 H Glucose 263 H POC Glucose 299 H 281 H Calcium 6.5 L Phosphorus Iron TIBC Albumin TSH Urine WBC (Auto) Urine Creatinine Crossmatch 07/20/16 07/20/16 07/21/16 17:07 22:54 06:24 WBC RBC Hgb Hct MCH RDW Plt Count Lymph % (Auto) [place] % (Auto) Lymph # [place] # Seg Neutrophils % Seg Neuts % (Manual) Lymphocytes % (Manual) Seg Neutrophils # Seg Neutrophils # Man Lymphocytes # (Manual) D-Dimer POC ABG pH POC ABG pCO2 POC ABG pO2 Sodium Potassium Chloride Carbon Dioxide BUN Creatinine Glucose POC Glucose 253 H 209 H 346 H Calcium Phosphorus Iron TIBC Albumin TSH Urine WBC (Auto) Urine Creatinine Crossmatch 07/21/16 07/21/16 07/21/16 07:25 15:46 21:23 WBC RBC Hgb Hct MCH RDW Plt Count Lymph % (Auto) [place] % (Auto) Lymph # [place] # Seg Neutrophils % Seg Neuts % (Manual) Lymphocytes % (Manual) Seg Neutrophils # Seg Neutrophils # Man Lymphocytes # (Manual) D-Dimer POC ABG pH POC ABG pCO2 POC ABG pO2 Sodium 133 L Potassium Chloride 90.7 L Carbon Dioxide BUN 71 H Creatinine 4.8 H Glucose 289 H POC Glucose 112 H 218 H Calcium 6.2 L Phosphorus Iron TIBC Albumin TSH Urine WBC (Auto) Urine Creatinine Crossmatch 07/22/16 07/22/16 07/22/16 06:28 11:49 16:37 WBC RBC Hgb Hct MCH RDW Plt Count Lymph % (Auto) [place] % (Auto) Lymph # [place] # Seg Neutrophils % Seg Neuts % (Manual) Lymphocytes % (Manual) Seg Neutrophils # Seg Neutrophils # Man Lymphocytes # (Manual) D-Dimer POC ABG pH POC ABG pCO2 POC ABG pO2 Sodium Potassium Chloride Carbon Dioxide BUN Creatinine Glucose POC Glucose 316 H 211 H 185 H Calcium Phosphorus Iron TIBC Albumin TSH Urine WBC (Auto) Urine Creatinine Crossmatch 07/22/16 07/23/16 07/23/16 20:24 05:19 12:10 WBC RBC Hgb Hct MCH RDW Plt Count Lymph % (Auto) [place] % (Auto) Lymph # [place] # Seg Neutrophils % Seg Neuts % (Manual) Lymphocytes % (Manual) Seg Neutrophils # Seg Neutrophils # Man Lymphocytes # (Manual) D-Dimer POC ABG pH POC ABG pCO2 POC ABG pO2 Sodium Potassium Chloride Carbon Dioxide BUN Creatinine Glucose POC Glucose 213 H 319 H 261 H Calcium Phosphorus Iron TIBC Albumin TSH Urine WBC (Auto) Urine Creatinine Crossmatch 07/23/16 07/23/16 07/24/16 15:49 20:58 05:29 WBC RBC Hgb Hct MCH RDW Plt Count Lymph % (Auto) [place] % (Auto) Lymph # [place] # Seg Neutrophils % Seg Neuts % (Manual) Lymphocytes % (Manual) Seg Neutrophils # Seg Neutrophils # Man Lymphocytes # (Manual) D-Dimer POC ABG pH POC ABG pCO2 POC ABG pO2 Sodium Potassium Chloride Carbon Dioxide BUN Creatinine Glucose POC Glucose 271 H 191 H 279 H Calcium Phosphorus Iron TIBC Albumin TSH Urine WBC (Auto) Urine Creatinine Crossmatch 07/24/16 07/24/16 07/24/16 05:53 16:20 21:31 WBC RBC Hgb Hct MCH RDW Plt Count Lymph % (Auto) [place] % (Auto) Lymph # [place] # Seg Neutrophils % Seg Neuts % (Manual) Lymphocytes % (Manual) Seg Neutrophils # Seg Neutrophils # Man Lymphocytes # (Manual) D-Dimer POC ABG pH POC ABG pCO2 POC ABG pO2 Sodium Potassium Chloride Carbon Dioxide BUN 89 H Creatinine 5.3 H Glucose 273 H POC Glucose 161 H 136 H Calcium 6.2 L Phosphorus Iron TIBC Albumin TSH Urine WBC (Auto) Urine Creatinine Crossmatch 07/25/16 07/25/16 07/25/16 06:25 11:56 16:10 WBC RBC Hgb Hct MCH RDW Plt Count Lymph % (Auto) [place] % (Auto) Lymph # [place] # Seg Neutrophils % Seg Neuts % (Manual) Lymphocytes % (Manual) Seg Neutrophils # Seg Neutrophils # Man Lymphocytes # (Manual) D-Dimer POC ABG pH POC ABG pCO2 POC ABG pO2 Sodium Potassium Chloride Carbon Dioxide BUN Creatinine Glucose POC Glucose 311 H 164 H 249 H Calcium Phosphorus Iron TIBC Albumin TSH Urine WBC (Auto) Urine Creatinine Crossmatch 07/25/16 07/26/16 07/26/16 21:13 06:19 11:31 WBC RBC Hgb Hct MCH RDW Plt Count Lymph % (Auto) [place] % (Auto) Lymph # [place] # Seg Neutrophils % Seg Neuts % (Manual) Lymphocytes % (Manual) Seg Neutrophils # Seg Neutrophils # Man Lymphocytes # (Manual) D-Dimer POC ABG pH POC ABG pCO2 POC ABG pO2 Sodium Potassium Chloride Carbon Dioxide BUN Creatinine Glucose POC Glucose 194 H 280 H 191 H Calcium Phosphorus Iron TIBC Albumin TSH Urine WBC (Auto) Urine Creatinine Crossmatch 07/26/16 07/26/16 07/26/16 12:50 12:50 13:02 WBC RBC 2.35 L Hgb 6.5 L Hct 20.0 L MCH RDW 18.4 H Plt Count 135 L Lymph % (Auto) 7.7 L [place] % (Auto) Lymph # 0.6 L [place] # Seg Neutrophils % 86.8 H Seg Neuts % (Manual) Lymphocytes % (Manual) Seg Neutrophils # Seg Neutrophils # Man Lymphocytes # (Manual) D-Dimer POC ABG pH 7.523 H POC ABG pCO2 31.3 L POC ABG pO2 Sodium Potassium Chloride Carbon Dioxide BUN 67 H Creatinine 4.9 H Glucose 139 H POC Glucose Calcium 6.1 L Phosphorus Iron TIBC Albumin TSH Urine WBC (Auto) Urine Creatinine Crossmatch 07/26/16 07/26/16 07/26/16 15:10 16:11 23:25 WBC RBC Hgb Hct MCH RDW Plt Count Lymph % (Auto) [place] % (Auto) Lymph # [place] # Seg Neutrophils % Seg Neuts % (Manual) Lymphocytes % (Manual) Seg Neutrophils # Seg Neutrophils # Man Lymphocytes # (Manual) D-Dimer POC ABG pH POC ABG pCO2 POC ABG pO2 Sodium Potassium Chloride Carbon Dioxide BUN Creatinine Glucose POC Glucose 204 H 115 H Calcium Phosphorus Iron TIBC Albumin TSH Urine WBC (Auto) Urine Creatinine Crossmatch See Detail 07/27/16 07/27/16 07/27/16 06:39 09:28 09:28 WBC RBC 3.30 L Hgb 9.4 L Hct 28.5 L D MCH RDW 16.5 H Plt Count 115 L Lymph % (Auto) [place] % (Auto) Lymph # [place] # Seg Neutrophils % 78.0 H Seg Neuts % (Manual) Lymphocytes % (Manual) Seg Neutrophils # 8.2 H Seg Neutrophils # Man Lymphocytes # (Manual) D-Dimer POC ABG pH POC ABG pCO2 POC ABG pO2 Sodium Potassium 2.6 L* D Chloride 97.7 L Carbon Dioxide BUN 36 H Creatinine 2.9 H Glucose 157 H POC Glucose 194 H Calcium 6.8 L Phosphorus Iron TIBC Albumin TSH Urine WBC (Auto) Urine Creatinine Crossmatch 07/27/16 07/27/16 07/28/16 11:06 21:17 05:56 WBC RBC Hgb Hct MCH RDW Plt Count Lymph % (Auto) [place] % (Auto) Lymph # [place] # Seg Neutrophils % Seg Neuts % (Manual) Lymphocytes % (Manual) Seg Neutrophils # Seg Neutrophils # Man Lymphocytes # (Manual) D-Dimer POC ABG pH POC ABG pCO2 POC ABG pO2 Sodium Potassium 3.2 L D Chloride Carbon Dioxide BUN 46 H Creatinine 3.5 H Glucose 205 H POC Glucose 145 H 121 H Calcium 6.8 L Phosphorus Iron TIBC Albumin TSH Urine WBC (Auto) Urine Creatinine Crossmatch 07/28/16 07/28/16 07/28/16 05:56 11:12 17:21 WBC RBC Hgb 9.1 L Hct 28.0 L MCH RDW Plt Count Lymph % (Auto) [place] % (Auto) Lymph # [place] # Seg Neutrophils % Seg Neuts % (Manual) Lymphocytes % (Manual) Seg Neutrophils # Seg Neutrophils # Man Lymphocytes # (Manual) D-Dimer POC ABG pH POC ABG pCO2 POC ABG pO2 Sodium Potassium Chloride Carbon Dioxide BUN Creatinine Glucose POC Glucose 125 H 157 H Calcium Phosphorus Iron TIBC Albumin TSH Urine WBC (Auto) Urine Creatinine Crossmatch 07/28/16 07/29/16 07/29/16 21:46 12:10 15:52 WBC RBC Hgb Hct MCH RDW Plt Count Lymph % (Auto) [place] % (Auto) Lymph # [place] # Seg Neutrophils % Seg Neuts % (Manual) Lymphocytes % (Manual) Seg Neutrophils # Seg Neutrophils # Man Lymphocytes # (Manual) D-Dimer POC ABG pH POC ABG pCO2 POC ABG pO2 Sodium Potassium Chloride Carbon Dioxide BUN Creatinine Glucose POC Glucose 190 H 169 H 145 H Calcium Phosphorus Iron TIBC Albumin TSH Urine WBC (Auto) Urine Creatinine Crossmatch 07/29/16 07/30/16 07/30/16 23:56 00:15 05:38 WBC RBC Hgb 8.5 L Hct 26.4 L MCH RDW Plt Count Lymph % (Auto) [place] % (Auto) Lymph # [place] # Seg Neutrophils % Seg Neuts % (Manual) Lymphocytes % (Manual) Seg Neutrophils # Seg Neutrophils # Man Lymphocytes # (Manual) D-Dimer POC ABG pH POC ABG pCO2 POC ABG pO2 Sodium Potassium Chloride Carbon Dioxide BUN Creatinine Glucose POC Glucose 166 H Calcium Phosphorus Iron 23 L TIBC 142 L Albumin TSH Urine WBC (Auto) Urine Creatinine Crossmatch 07/30/16 07/30/16 07/30/16 05:38 06:19 11:25 WBC RBC Hgb Hct MCH RDW Plt Count Lymph % (Auto) [place] % (Auto) Lymph # [place] # Seg Neutrophils % Seg Neuts % (Manual) Lymphocytes % (Manual) Seg Neutrophils # Seg Neutrophils # Man Lymphocytes # (Manual) D-Dimer POC ABG pH POC ABG pCO2 POC ABG pO2 Sodium Potassium Chloride Carbon Dioxide BUN 40 H Creatinine 3.5 H Glucose 151 H POC Glucose 167 H 117 H Calcium 7.1 L Phosphorus Iron TIBC Albumin TSH Urine WBC (Auto) Urine Creatinine Crossmatch 07/30/16 07/30/16 07/31/16 16:29 22:12 06:34 WBC RBC Hgb Hct MCH RDW Plt Count Lymph % (Auto) [place] % (Auto) Lymph # [place] # Seg Neutrophils % Seg Neuts % (Manual) Lymphocytes % (Manual) Seg Neutrophils # Seg Neutrophils # Man Lymphocytes # (Manual) D-Dimer POC ABG pH POC ABG pCO2 POC ABG pO2 Sodium Potassium Chloride Carbon Dioxide BUN Creatinine Glucose POC Glucose 146 H 150 H 148 H Calcium Phosphorus Iron TIBC Albumin TSH Urine WBC (Auto) Urine Creatinine Crossmatch 07/31/16 07/31/16 07/31/16 08:16 08:16 11:26 WBC RBC Hgb 8.1 L Hct 24.9 L MCH RDW Plt Count Lymph % (Auto) [place] % (Auto) Lymph # [place] # Seg Neutrophils % Seg Neuts % (Manual) Lymphocytes % (Manual) Seg Neutrophils # Seg Neutrophils # Man Lymphocytes # (Manual) D-Dimer POC ABG pH POC ABG pCO2 POC ABG pO2 Sodium Potassium Chloride Carbon Dioxide BUN 52 H Creatinine 4.0 H Glucose 152 H POC Glucose 137 H Calcium 6.9 L Phosphorus Iron TIBC Albumin TSH Urine WBC (Auto) Urine Creatinine Crossmatch 08/01/16 08/01/16 08/01/16 00:14 02:49 05:22 WBC RBC 3.09 L Hgb 8.6 L Hct 26.9 L MCH RDW 16.5 H Plt Count 107 L Lymph % (Auto) [place] % (Auto) Lymph # [place] # Seg Neutrophils % Seg Neuts % (Manual) Lymphocytes % (Manual) Seg Neutrophils # Seg Neutrophils # Man Lymphocytes # (Manual) D-Dimer POC ABG pH POC ABG pCO2 POC ABG pO2 Sodium Potassium Chloride Carbon Dioxide BUN Creatinine Glucose POC Glucose 172 H 140 H Calcium Phosphorus Iron TIBC Albumin TSH Urine WBC (Auto) Urine Creatinine Crossmatch 08/01/16 08/02/16 08/02/16 11:18 05:50 21:49 WBC RBC Hgb Hct MCH RDW Plt Count Lymph % (Auto) [place] % (Auto) Lymph # [place] # Seg Neutrophils % Seg Neuts % (Manual) Lymphocytes % (Manual) Seg Neutrophils # Seg Neutrophils # Man Lymphocytes # (Manual) D-Dimer POC ABG pH POC ABG pCO2 POC ABG pO2 Sodium Potassium Chloride Carbon Dioxide BUN Creatinine Glucose POC Glucose 116 H 111 H 138 H Calcium Phosphorus Iron TIBC Albumin TSH Urine WBC (Auto) Urine Creatinine Crossmatch 08/03/16 08/03/16 08/03/16 05:44 10:22 12:17 WBC RBC Hgb Hct MCH RDW Plt Count Lymph % (Auto) [place] % (Auto) Lymph # [place] # Seg Neutrophils % Seg Neuts % (Manual) Lymphocytes % (Manual) Seg Neutrophils # Seg Neutrophils # Man Lymphocytes # (Manual) D-Dimer POC ABG pH 7.472 H POC ABG pCO2 POC ABG pO2 Sodium Potassium Chloride Carbon Dioxide BUN Creatinine Glucose POC Glucose 144 H 146 H Calcium Phosphorus Iron TIBC Albumin TSH Urine WBC (Auto) Urine Creatinine Crossmatch
--- NOTE | 2016-08-03 13:47 | XRay Report ---
PA and lateral chest: The heart is slightly enlarged. Aorta is tortuous. There is no vascular congestion. The lungs appear generally clear. There is a triple lumen catheter centrally via the right jugular vein. Compared to the prior examination of July 16, 2016 the central catheter is new with interval removal of a left sided catheter and removal of the Dobbhoff catheter. The cardiopulmonary findings are unchanged. Impression: No acute cardiopulmonary findings. Mild cardiomegaly. Well-positioned central venous catheter.
--- NOTE | 2016-08-03 15:15 | Progress Note ---
Assessment and Plan Assessment and plan: Severe hypokalemia * resolved after replacement * cont to monitor, she was hyperkalemic on admission Severe microcytic anemia * s/p 2 units of PRBC * stool for occult blood positive, GI following Dysphagia * Had EGD and PEG tube placement yesterday Acute hypoxic respiratory failure * Resolved, s/p extubation, Off BiPAP * On oxygen support Angioedema with dysphagia * Patient is now extubated and doing well. * Repeat swallow study was unsuccessfull * PEG placed 08/01/16 Urinary tract infection * Urine culture positive for Klebsiella * Treated with Rocephin, Acute renal failure on CKD stage IV. * Etiology likely secondary to vasomotor nephropathy versus interstitial nephritis from initial treatment with Bactrim for UTI. * Patient is on hemodialysis, will need out pt HD set up Hyperkalemia. * improved after dialysis DM2 * Monitor blood glucose closely, SSI Toxic metabolic encephalopathy. * Continue to treat underlying causes. * Continue supportive care Hypothyroidism. * Continue Synthroid. Hypertension * Continue current antihypertensive and adjust medications as needed * Hydralazine when necessary Left upper extremity swelling. * Ultrasound showed SVT in the cephalic vein * conservative management * Disposition. Awaiting placement Discussed with case management today. Patient needs outpatient hemodialysis set up * History Interval history: non verbal, difficulty swallowing,, PEG tube placed Hospitalist Physical - Physical exam Narrative exam: Gen: Not in acute distress HEENT: Normocephalic, atraumatic, NG tube in Neck :supple, no JVD Lungs clear to auscultation bilaterally no crackles or wheeze Heart :S1 and S2 regular, no murmurs no gallop Abdomen:soft, nontender, nondistended, PEG tube site dry,, normal bowel sounds Ext: edema left upper ext Neuro: lethargic - Constitutional Vitals: Temp Pulse Resp BP Pulse Ox 97.9 F 82 20 102/52 100 08/03/16 08:40 08/03/16 08:40 08/03/16 08:40 08/03/16 08:40 08/03/16 08:40 Results - Labs CBC & Chem 7: 08/01/16 02:49 07/31/16 08:16 Labs: Laboratory Last Values WBC 5.3 K/mm3 (4.5-11.0) 08/01/16 02:49 RBC 3.09 M/mm3 (3.65-5.03) L 08/01/16 02:49 Hgb 8.6 gm/dl (10.1-14.3) L 08/01/16 02:49 Hct 26.9 % (30.3-42.9) L 08/01/16 02:49 MCV 87 fl (79-97) 08/01/16 02:49 MCH 28 pg (28-32) 08/01/16 02:49 MCHC 32 % (30-34) 08/01/16 02:49 RDW 16.5 % (13.2-15.2) H 08/01/16 02:49 Plt Count 107 K/mm3 (140-440) L 08/01/16 02:49 Lymph % (Auto) 14.1 % (13.4-35.0) 07/27/16 09:28 [place] % (Auto) 6.5 % (0.0-7.3) 07/27/16 09:28 Eos % (Auto) 1.1 % (0.0-4.3) 07/27/16 09:28 Baso % (Auto) 0.3 % (0.0-1.8) 07/27/16 09:28 Lymph # 1.5 K/mm3 (1.2-5.4) 07/27/16 09:28 [place] # 0.7 K/mm3 (0.0-0.8) 07/27/16 09:28 Eos # 0.1 K/mm3 (0.0-0.4) 07/27/16 09:28 Baso # 0.0 K/mm3 (0.0-0.1) 07/27/16 09:28 Add Manual Diff Complete 07/18/16 05:06 Total Counted 100 07/18/16 05:06 Seg Neutrophils % 78.0 % (40.0-70.0) H 07/27/16 09:28 Seg Neuts % (Manual) 80.0 % (40.0-70.0) H 07/18/16 05:06 Band Neutrophils % 4.0 % 07/18/16 05:06 Lymphocytes % (Manual) 10.0 % (13.4-35.0) L 07/18/16 05:06 Reactive Lymphs % (Man) 0 % 07/18/16 05:06 Monocytes % (Manual) 6.0 % (0.0-7.3) 07/18/16 05:06 Eosinophils % (Manual) 0 % (0.0-4.3) 07/17/16 06:52 Basophils % (Manual) 0 % (0.0-1.8) 07/17/16 06:52 Metamyelocytes % 0 % 07/18/16 05:06 Myelocytes % 0 % 07/18/16 05:06 Promyelocytes % 0 % 07/18/16 05:06 Blast Cells % 0 % 07/18/16 05:06 Nucleated RBC % Not Reportable 07/18/16 05:06 Seg Neutrophils # 8.2 K/mm3 (1.8-7.7) H 07/27/16 09:28 Seg Neutrophils # Man 6.9 K/mm3 (1.8-7.7) 07/18/16 05:06 Band Neutrophils # 0.3 K/mm3 07/18/16 05:06 Lymphocytes # (Manual) 0.9 K/mm3 (1.2-5.4) L 07/18/16 05:06 Abs React Lymphs (Man) 0.0 K/mm3 07/18/16 05:06 Monocytes # (Manual) 0.5 K/mm3 (0.0-0.8) 07/18/16 05:06 Eosinophils # (Manual) 0.0 K/mm3 (0.0-0.4) 07/18/16 05:06 Basophils # (Manual) 0.0 K/mm3 (0.0-0.1) 07/18/16 05:06 Metamyelocytes # 0.0 K/mm3 07/18/16 05:06 Myelocytes # 0.0 K/mm3 07/18/16 05:06 Promyelocytes # 0.0 K/mm3 07/18/16 05:06 Blast Cells # 0.0 K/mm3 07/18/16 05:06 WBC Morphology Not Reportable 07/18/16 05:06 Hypersegmented Neuts Not Reportable 07/18/16 05:06 Hyposegmented Neuts Not Reportable 07/18/16 05:06 Hypogranular Neuts Not Reportable 07/18/16 05:06 Smudge Cells Not Reportable 07/18/16 05:06 Toxic Granulation Not Reportable 07/18/16 05:06 Toxic Vacuolation Not Reportable 07/18/16 05:06 Dohle Bodies Not Reportable 07/18/16 05:06 Pel[place]-Huet Anomaly Not Reportable 07/18/16 05:06 [place] Rods Not Reportable 07/18/16 05:06 Platelet Estimate Not Reportable 07/18/16 05:06 Clumped Platelets Not Reportable 07/18/16 05:06 Plt Clumps, EDTA Not Reportable 07/18/16 05:06 Large Platelets Not Reportable 07/18/16 05:06 Giant Platelets Not Reportable 07/18/16 05:06 Platelet Satelliting Not Reportable 07/18/16 05:06 Plt Morphology Comment Not Reportable 07/18/16 05:06 RBC Morphology Not Reportable 07/18/16 05:06 Dimorphic RBCs Not Reportable 07/18/16 05:06 Polychromasia Not Reportable 07/18/16 05:06 Hypochromasia Not Reportable 07/18/16 05:06 Poikilocytosis Not Reportable 07/18/16 05:06 Anisocytosis 1+ 07/18/16 05:06 Microcytosis Not Reportable 07/18/16 05:06 Macrocytosis Not Reportable 07/18/16 05:06 Spherocytes Not Reportable 07/18/16 05:06 Pappenheimer Bodies Not Reportable 07/18/16 05:06 Sickle Cells Not Reportable 07/18/16 05:06 Target Cells Not Reportable 07/18/16 05:06 Tear Drop Cells Not Reportable 07/18/16 05:06 Ovalocytes Not Reportable 07/18/16 05:06 Helmet Cells Not Reportable 07/18/16 05:06 [place] Bodies Not Reportable 07/18/16 05:06 [place] Rings Not Reportable 07/18/16 05:06 [place] Cells Not Reportable 07/18/16 05:06 Bite Cells Not Reportable 07/18/16 05:06 Crenated Cell Not Reportable 07/18/16 05:06 Elliptocytes Few 07/18/16 05:06 Acanthocytes (Spur) Not Reportable 07/18/16 05:06 Rouleaux Not Reportable 07/18/16 05:06 Hemoglobin C Crystals Not Reportable 07/18/16 05:06 Schistocytes Not Reportable 07/18/16 05:06 Malaria parasites Not Reportable 07/18/16 05:06 [place] Bodies Not Reportable 07/18/16 05:06 Hem Pathologist Commnt No 07/18/16 05:06 PT 12.8 Sec. (12.2-14.9) 08/01/16 02:49 INR 0.97 (0.87-1.13) 08/01/16 02:49 APTT 34.8 Sec. (24.2-36.6) 07/18/16 05:06 D-Dimer 751.80 ng/mlDDU (0-234) H 07/11/16 12:22 POC ABG pH 7.472 (7.35-7.45) H 08/03/16 10:22 POC ABG pCO2 38.4 (35-45) 08/03/16 10:22 POC ABG pO2 83 (80-105) 08/03/16 10:22 POC ABG HCO3 28.1 08/03/16 10:22 POC ABG Total CO2 29 08/03/16 10:22 POC ABG O2 Sat 97 08/03/16 10:22 POC ABG Base Excess 4 08/03/16 10:22 FiO2 21 % 08/03/16 10:22 Sodium 141 mmol/L (137-145) 07/31/16 08:16 Potassium 4.2 mmol/L (3.6-5.0) 07/31/16 08:16 Chloride 103.7 mmol/L (98-107) 07/31/16 08:16 Carbon Dioxide 24 mmol/L (22-30) 07/31/16 08:16 Anion Gap 18 mmol/L 07/31/16 08:16 BUN 52 mg/dL (7-17) H 07/31/16 08:16 Creatinine 4.0 mg/dL (0.7-1.2) H 07/31/16 08:16 Estimated GFR 13 ml/min 07/31/16 08:16 BUN/Creatinine Ratio 13.00 % 07/31/16 08:16 Glucose 152 mg/dL (65-100) H 07/31/16 08:16 POC Glucose 146 (70-105) H 08/03/16 12:17 Hemoglobin A1c 5.6 % (4-6) 07/15/16 04:56 Lactic Acid 0.8 mmol/L (0.7-2.0) 07/19/16 00:37 Calcium 6.9 mg/dL (8.4-10.2) L 07/31/16 08:16 Phosphorus 5.2 mg/dL (2.5-4.5) H 07/17/16 06:52 Magnesium 1.9 mg/dL (1.7-2.3) 07/17/16 06:52 Iron 23 ug/dL (37-170) L 07/30/16 00:15 TIBC 142 mcg/dL (250-450) L 07/30/16 00:15 Total Bilirubin < 0.2 mg/dL (0.1-1.2) 07/10/16 06:43 AST 17 units/L (5-40) 07/10/16 06:43 ALT 9 units/L (7-56) 07/10/16 06:43 Alkaline Phosphatase 62 units/L (35-129) 07/10/16 06:43 Total Creatine Kinase 131 units/L (30-135) 07/11/16 12:22 CK-MB (CK-2) 2.0 ng/mL (0.0-4.0) 07/11/16 12:22 CK-MB (CK-2) Rel Index 1.5 (0-4) 07/11/16 12:22 Troponin T < 0.010 ng/mL (0.00-0.029) 07/11/16 12:22 Total Protein 6.7 g/dL (6.3-8.2) 07/10/16 06:43 Albumin 3.5 g/dL (3.9-5) L 07/10/16 06:43 Albumin/Globulin Ratio 1.1 % 07/10/16 06:43 TSH 8.090 mlU/mL (0.270-4.200) H 07/05/16 05:08 Urine Color Straw (Yellow) 07/06/16 01:18 Urine Turbidity Clear (Clear) 07/06/16 01:18 Urine pH 6.0 (5.0-7.0) 07/06/16 01:18 Ur Specific [place] 1.003 (1.003-1.030) 07/06/16 01:18 Urine Protein <15 mg/dl mg/dL (Negative) 07/06/16 01:18 Urine Glucose (UA) Neg mg/dL (Negative) 07/06/16 01:18 Urine Ketones Neg mg/dL (Negative) 07/06/16 01:18 Urine Blood Neg (Negative) 07/06/16 01:18 Urine Nitrite Neg (Negative) 07/06/16 01:18 Urine Bilirubin Neg (Negative) 07/06/16 01:18 Urine Urobilinogen < 2.0 mg/dL (<2.0) 07/06/16 01:18 Ur Leukocyte Esterase Mod (Negative) 07/06/16 01:18 Urine WBC (Auto) 7.0 /HPF (0.0-6.0) H 07/06/16 01:18 Urine RBC (Auto) 3.0 /HPF (0.0-6.0) 07/06/16 01:18 U Epithel Cells (Auto) 1.0 /HPF (0-13.0) 06/30/16 11:34 Urine Bacteria (Auto) 1+ /HPF (Negative) 06/30/16 11:34 Urine Eosinophils None seen (None Seen) 07/06/16 01:18 Urine Creatinine 36.6 mg/dL (0.1-20.0) H 07/06/16 01:18 Urine Microalbumin 6.5 mg/dL (0.1-34.0) 07/06/16 01:18 Microalb/Creat Ratio 177.5 ug/mg 07/06/16 01:18 Urine Sodium 28 mEq/L 07/06/16 01:18 Urine Opiates Screen Presumptive negative 06/30/16 11:34 Urine Methadone Screen Presumptive negative 06/30/16 11:34 Acetaminophen < 15.0 ug/mL (10.0-30.0) 06/30/16 12:01 Ur Barbiturates Screen Presumptive negative 06/30/16 11:34 Ur Phencyclidine Scrn Presumptive negative 06/30/16 11:34 Ur Amphetamines Screen Presumptive negative 06/30/16 11:34 U Benzodiazepines Scrn Presumptive negative 06/30/16 11:34 Urine Cocaine Screen Presumptive negative 06/30/16 11:34 U Marijuana (THC) Screen Presumptive negative 06/30/16 11:34 Drugs of Abuse Note Disclamer 06/30/16 11:34 Plasma/Serum Alcohol < 0.01 gm% (0-0.07) 06/30/16 12:01 Hepatitis A IgM Ab -1 (NonReactive) 07/16/16 19:08 Hep Bs Antigen Non-reactive (Negative) 07/16/16 19:08 Hep B Core IgM Ab Non-reactive (NonReactive) 07/16/16 19:08 Hepatitis C Antibody Non-reactive (NonReactive) 07/16/16 19:08 Blood Type O POSITIVE 07/26/16 15:10 Antibody Screen Negative 07/26/16 15:10 Crossmatch See Detail 07/26/16 15:10
[2016-08-04] MEDS: APRESOLINE FEEDTUBE SCH ×2 (05:44→16:20)
[2016-08-04] MEDS: SYNTHROID PO SCH (05:44)
[2016-08-04] MEDS: HEPARIN SUB-Q SCH ×2 (05:45→16:20)
[2016-08-04] MEDS: NORMODYNE PO SCH ×2 (08:00→14:00)
[2016-08-04 08:16] LABS: Hematocrit 23.6 % (30.3-42.9); Hemoglobin 7.7 gm/dl (10.1-14.3); Mean Corpuscular HGB Conc 33 % (30-34); Mean Corpuscular Hemoglobin 29 pg (28-32); Mean Corpuscular Volume 88 fl (79-97); Platelet Count 163 K/mm3 (140-440); Red Blood Count 2.67 M/mm3 (3.65-5.03); Red Cell Distribution Width 16.7 % (13.2-15.2); White Blood Count 3.4 K/mm3 (4.5-11.0)
[2016-08-04 08:32] LABS: BUN/Creatinine Ratio 7.56; Calcium 7.1 mg/dL (8.4-10.2); Phosphorous 2.1 mg/dL (2.5-4.5); Potassium 3.4 mmol/L (3.6-5.0)
--- NOTE | 2016-08-04 08:33 | Progress Note ---
Assessment and Plan - GABRIELA remains dialysis dependent. Possibly ESRD - Hypophosphatemia - DM2 - Encephalopathy - Hypothyroidism. - Hypertension - SVT in the cephalic vein PLAN: - Continue HD MWF, scheduled for treatment today. - Phos replacement - Continue to monitor renal function for recovery - Awaiting outpatient placement for dialysis. - Supportive care . Subjective Date of service: 08/04/16 Principal diagnosis: Acute Respiratory Failure; Angioedema Interval history: No overnight events reported. Objective - Exam Narrative Exam: no distress EENT: PERRLa Neck: no JVD Respiratory:Unlaboured, Few coarse rales in both lung [place] Cardiology: regular, S1S2, 2/6 PSM. No pericardial friction rub. No parasternal heave Gastrointestinal: Soft. BS+ PEG tube + Integumentary: Pallor+ Neurologic:More alert today. arousable and responds to commands RIJ permcath+ - Vital Signs Vital signs: Vital Signs - 12hr 08/03/16 08/03/16 08/04/16 22:00 23:55 00:00 Temperature 96.3 F L Pulse Rate [ 85 Right Radial] Respiratory 18 20 Rate Respiratory 18 Rate [denies pain] Blood Pressure 120/58 [Right Arm] O2 Sat by Pulse 100 Oximetry - Lab 08/04/16 07:24 08/04/16 07:24 Most recent lab results Calcium 6.9 mg/dL (8.4-10.2) L 07/31/16 08:16 Phosphorus 5.2 mg/dL (2.5-4.5) H 07/17/16 06:52 Magnesium 1.9 mg/dL (1.7-2.3) 07/17/16 06:52 Urine Creatinine 36.6 mg/dL (0.1-20.0) H 07/06/16 01:18 Urine Sodium 28 mEq/L 07/06/16 01:18
[2016-08-04] MEDS: NOVOLOG SUB-Q SCH ×3 (09:00→17:21)
[2016-08-04 09:45] LABS: Basophils % (Manual) 0 % (0.0-1.8); Blastocytes % (Manual) 0 %
[2016-08-04 09:49] LABS: Anisocytosis 1+
[2016-08-04 09:53] LABS: RBC Morphology Normal
[2016-08-04 09:54] LABS: Diff Status Complete
[2016-08-04] MEDS: NEURONTIN PO SCH (10:00)
[2016-08-04] MEDS: PEPCID PO SCH (10:00)
[2016-08-04] MEDS: PHOS-NAK PO SCH ×2 (10:00→16:20)
--- NOTE | 2016-08-04 11:42 | Progress Note ---
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 (4) Acute respiratory failure Current Visit: Yes Status: Resolved (5) Angioedema Current Visit: Yes Status: Acute Subjective Date of service: 08/04/16 Principal diagnosis: Acute Respiratory Failure; Angioedema Interval history: Seen and examined at bedside; 24 hour events reviewed; nursing and respiratory care staff consulted; no adverse overnight events reported to me; Objective Vital Signs - 12hr 08/03/16 08/04/16 08/04/16 23:55 00:00 08:00 Temperature 96.3 F L 98.9 F Pulse Rate Pulse Rate [ 80 Apical] Pulse Rate [ 85 Right Radial] Respiratory 20 16 Rate Respiratory 18 Rate [denies pain] Blood Pressure Blood Pressure 120/58 118/52 [Right Arm] O2 Sat by Pulse 100 97 Oximetry 08/04/16 10:48 Temperature 98.5 F Pulse Rate 78 Pulse Rate [ Apical] Pulse Rate [ Right Radial] Respiratory 18 Rate Respiratory Rate [denies pain] Blood Pressure 108/50 Blood Pressure [Right Arm] O2 Sat by Pulse Oximetry Constitutional: no acute distress, asleep, other (does not localize to sternal rub) Eyes: non-icteric ENT: oropharynx moist Neck: supple, no lymphadenopathy Effort: normal Ascultation: Bilateral: clear, diminished breath sounds (bases) Cardiovascular: regular rate and rhythm Gastrointestinal: normoactive bowel sounds, soft, non-tender, non-distended Integumentary: normal Extremities: no cyanosis, no edema, pulses normal, no ischemia or petechiae Neurologic: non-focal exam (grossly), pupils equal and round, CN II-XII normal Psychiatric: other (somnolent) CBC and BMP: 08/04/16 07:24 08/04/16 07:24 ABG, PT/INR, D-dimer: ABG POC ABG pH 7.472 (7.35-7.45) H 08/03/16 10:22 POC ABG pCO2 38.4 (35-45) 08/03/16 10:22 POC ABG pO2 83 (80-105) 08/03/16 10:22 POC ABG HCO3 28.1 08/03/16 10:22 POC ABG Total CO2 29 08/03/16 10:22 POC ABG O2 Sat 97 08/03/16 10:22 PT/INR, D-dimer PT 12.8 Sec. (12.2-14.9) 08/01/16 02:49 INR 0.97 (0.87-1.13) 08/01/16 02:49 D-Dimer 751.80 ng/mlDDU (0-234) H 07/11/16 12:22 Abnormal lab findings: Abnormal Labs 07/03/16 07/03/16 07/04/16 14:34 14:34 06:21 WBC 3.9 L RBC 3.16 L 3.04 L Hgb 8.5 L 8.0 L Hct 26.8 L 25.6 L MCH 27 L 26 L RDW 16.5 H 16.2 H Plt Count Lymph % (Auto) Cecil % (Auto) 10.7 H 10.7 H Lymph # 1.0 L [place] # Seg Neutrophils % Seg Neuts % (Manual) Lymphocytes % (Manual) Monocytes % (Manual) Seg Neutrophils # Seg Neutrophils # Man Lymphocytes # (Manual) D-Dimer POC ABG pH POC ABG pCO2 POC ABG pO2 Sodium Potassium Chloride 107.6 H Carbon Dioxide BUN 27 H Creatinine 2.6 H Glucose POC Glucose Calcium 8.0 L Phosphorus Iron TIBC Albumin TSH Urine WBC (Auto) Urine Creatinine Crossmatch 07/04/16 07/04/16 07/04/16 06:21 11:30 16:33 WBC RBC Hgb Hct MCH RDW Plt Count Lymph % (Auto) [place] % (Auto) Lymph # [place] # Seg Neutrophils % Seg Neuts % (Manual) Lymphocytes % (Manual) Monocytes % (Manual) Seg Neutrophils # Seg Neutrophils # Man Lymphocytes # (Manual) D-Dimer POC ABG pH POC ABG pCO2 POC ABG pO2 Sodium Potassium Chloride 107.4 H Carbon Dioxide 21 L BUN 27 H Creatinine 2.7 H Glucose POC Glucose 110 H 106 H Calcium 7.8 L Phosphorus Iron TIBC Albumin TSH Urine WBC (Auto) Urine Creatinine Crossmatch 07/05/16 07/05/16 07/05/16 05:08 05:08 05:08 WBC 4.0 L RBC 2.87 L Hgb 7.7 L Hct 24.2 L MCH 27 L RDW 16.0 H Plt Count Lymph % (Auto) [place] % (Auto) Lymph # [place] # Seg Neutrophils % Seg Neuts % (Manual) Lymphocytes % (Manual) Monocytes % (Manual) Seg Neutrophils # Seg Neutrophils # Man Lymphocytes # (Manual) D-Dimer POC ABG pH POC ABG pCO2 POC ABG pO2 Sodium Potassium Chloride Carbon Dioxide 21 L BUN 32 H Creatinine 3.7 H Glucose POC Glucose Calcium 7.8 L Phosphorus Iron TIBC Albumin TSH 8.090 H Urine WBC (Auto) Urine Creatinine Crossmatch 07/05/16 07/06/16 07/06/16 11:45 01:18 01:18 WBC RBC Hgb 8.3 L Hct 25.9 L MCH RDW Plt Count Lymph % (Auto) [place] % (Auto) Lymph # [place] # Seg Neutrophils % Seg Neuts % (Manual) Lymphocytes % (Manual) Monocytes % (Manual) Seg Neutrophils # Seg Neutrophils # Man Lymphocytes # (Manual) D-Dimer POC ABG pH POC ABG pCO2 POC ABG pO2 Sodium Potassium Chloride Carbon Dioxide BUN Creatinine Glucose POC Glucose Calcium Phosphorus Iron TIBC Albumin TSH Urine WBC (Auto) 7.0 H Urine Creatinine 36.6 H Crossmatch 07/06/16 07/06/16 07/06/16 05:55 05:55 16:07 WBC 3.0 L RBC 2.79 L Hgb 7.5 L Hct 23.5 L MCH 27 L RDW 16.5 H Plt Count Lymph % (Auto) [place] % (Auto) Lymph # [place] # Seg Neutrophils % Seg Neuts % (Manual) Lymphocytes % (Manual) Monocytes % (Manual) Seg Neutrophils # Seg Neutrophils # Man Lymphocytes # (Manual) D-Dimer POC ABG pH POC ABG pCO2 POC ABG pO2 Sodium Potassium Chloride 109.3 H Carbon Dioxide 20 L BUN 32 H Creatinine 3.4 H Glucose POC Glucose 117 H Calcium 7.5 L Phosphorus Iron TIBC Albumin TSH Urine WBC (Auto) Urine Creatinine Crossmatch 07/07/16 07/07/16 07/08/16 06:19 16:13 00:09 WBC RBC Hgb Hct MCH RDW Plt Count Lymph % (Auto) [place] % (Auto) Lymph # [place] # Seg Neutrophils % Seg Neuts % (Manual) Lymphocytes % (Manual) Monocytes % (Manual) Seg Neutrophils # Seg Neutrophils # Man Lymphocytes # (Manual) D-Dimer POC ABG pH POC ABG pCO2 POC ABG pO2 Sodium Potassium Chloride 111.1 H Carbon Dioxide 20 L BUN 31 H Creatinine 3.1 H Glucose POC Glucose 108 H 134 H Calcium 8.0 L Phosphorus Iron TIBC Albumin TSH Urine WBC (Auto) Urine Creatinine Crossmatch 07/08/16 07/08/16 07/08/16 11:39 16:31 21:22 WBC RBC Hgb Hct MCH RDW Plt Count Lymph % (Auto) [place] % (Auto) Lymph # [place] # Seg Neutrophils % Seg Neuts % (Manual) Lymphocytes % (Manual) Monocytes % (Manual) Seg Neutrophils # Seg Neutrophils # Man Lymphocytes # (Manual) D-Dimer POC ABG pH POC ABG pCO2 POC ABG pO2 Sodium Potassium Chloride Carbon Dioxide BUN Creatinine Glucose POC Glucose 119 H 130 H 152 H Calcium Phosphorus Iron TIBC Albumin TSH Urine WBC (Auto) Urine Creatinine Crossmatch 07/09/16 07/09/16 07/09/16 05:52 05:52 06:02 WBC RBC 3.55 L Hgb 9.4 L Hct MCH 27 L RDW 17.1 H Plt Count Lymph % (Auto) [place] % (Auto) Lymph # [place] # Seg Neutrophils % Seg Neuts % (Manual) Lymphocytes % (Manual) Monocytes % (Manual) Seg Neutrophils # Seg Neutrophils # Man Lymphocytes # (Manual) D-Dimer POC ABG pH POC ABG pCO2 POC ABG pO2 Sodium 147 H Potassium 5.4 H Chloride 112.8 H Carbon Dioxide 21 L BUN 30 H Creatinine 2.5 H Glucose 21 L* POC Glucose < 40 L Calcium Phosphorus Iron TIBC Albumin TSH Urine WBC (Auto) Urine Creatinine Crossmatch 07/09/16 07/09/16 07/10/16 11:31 16:50 05:23 WBC RBC Hgb Hct MCH RDW Plt Count Lymph % (Auto) [place] % (Auto) Lymph # [place] # Seg Neutrophils % Seg Neuts % (Manual) Lymphocytes % (Manual) Monocytes % (Manual) Seg Neutrophils # Seg Neutrophils # Man Lymphocytes # (Manual) D-Dimer POC ABG pH POC ABG pCO2 POC ABG pO2 Sodium Potassium Chloride Carbon Dioxide BUN Creatinine Glucose POC Glucose 114 H 149 H < 40 L Calcium Phosphorus Iron TIBC Albumin TSH Urine WBC (Auto) Urine Creatinine Crossmatch 07/10/16 07/10/16 07/10/16 06:03 06:43 06:43 WBC RBC 2.90 L Hgb 7.7 L Hct 25.0 L MCH 27 L RDW 17.0 H Plt Count Lymph % (Auto) [place] % (Auto) 10.4 H Lymph # 1.1 L [place] # Seg Neutrophils % Seg Neuts % (Manual) Lymphocytes % (Manual) Monocytes % (Manual) Seg Neutrophils # Seg Neutrophils # Man Lymphocytes # (Manual) D-Dimer POC ABG pH POC ABG pCO2 POC ABG pO2 Sodium 148 H Potassium 5.1 H Chloride 111.7 H Carbon Dioxide 20 L BUN 31 H Creatinine 2.4 H Glucose POC Glucose 211 H Calcium 8.0 L Phosphorus Iron TIBC Albumin 3.5 L TSH Urine WBC (Auto) Urine Creatinine Crossmatch 07/10/16 07/11/16 07/11/16 14:55 05:37 05:47 WBC RBC Hgb 7.9 L Hct 25.5 L MCH RDW Plt Count Lymph % (Auto) [place] % (Auto) Lymph # [place] # Seg Neutrophils % Seg Neuts % (Manual) Lymphocytes % (Manual) Monocytes % (Manual) Seg Neutrophils # Seg Neutrophils # Man Lymphocytes # (Manual) D-Dimer POC ABG pH POC ABG pCO2 POC ABG pO2 Sodium Potassium Chloride Carbon Dioxide BUN Creatinine Glucose POC Glucose < 40 L > 500 H Calcium Phosphorus Iron TIBC Albumin TSH Urine WBC (Auto) Urine Creatinine Crossmatch 07/11/16 07/11/16 07/11/16 05:56 07:42 07:48 WBC RBC Hgb Hct MCH RDW Plt Count Lymph % (Auto) [place] % (Auto) Lymph # [place] # Seg Neutrophils % Seg Neuts % (Manual) Lymphocytes % (Manual) Monocytes % (Manual) Seg Neutrophils # Seg Neutrophils # Man Lymphocytes # (Manual) D-Dimer POC ABG pH POC ABG pCO2 POC ABG pO2 Sodium Potassium Chloride Carbon Dioxide BUN Creatinine Glucose POC Glucose 262 H 56 L 54 L Calcium Phosphorus Iron TIBC Albumin TSH Urine WBC (Auto) Urine Creatinine Crossmatch 07/11/16 07/11/16 07/11/16 08:34 08:50 09:53 WBC RBC Hgb Hct MCH RDW Plt Count Lymph % (Auto) [place] % (Auto) Lymph # [place] # Seg Neutrophils % Seg Neuts % (Manual) Lymphocytes % (Manual) Monocytes % (Manual) Seg Neutrophils # Seg Neutrophils # Man Lymphocytes # (Manual) D-Dimer POC ABG pH POC ABG pCO2 31.1 L POC ABG pO2 108 H Sodium Potassium Chloride Carbon Dioxide BUN Creatinine Glucose POC Glucose 110 H 68 L Calcium Phosphorus Iron TIBC Albumin TSH Urine WBC (Auto) Urine Creatinine Crossmatch 07/11/16 07/11/16 07/11/16 11:48 12:22 12:22 WBC 11.6 H RBC Hgb Hct MCH 27 L RDW 17.2 H Plt Count Lymph % (Auto) [place] % (Auto) Lymph # [place] # Seg Neutrophils % Seg Neuts % (Manual) 91.0 H Lymphocytes % (Manual) 5.0 L Monocytes % (Manual) Seg Neutrophils # 10.8 H Seg Neutrophils # Man 10.6 H Lymphocytes # (Manual) 0.6 L D-Dimer 751.80 H POC ABG pH POC ABG pCO2 POC ABG pO2 Sodium Potassium Chloride Carbon Dioxide BUN Creatinine Glucose POC Glucose 118 H Calcium Phosphorus Iron TIBC Albumin TSH Urine WBC (Auto) Urine Creatinine Crossmatch 07/11/16 07/11/16 07/11/16 12:22 12:29 15:23 WBC RBC Hgb Hct MCH RDW Plt Count Lymph % (Auto) [place] % (Auto) Lymph # [place] # Seg Neutrophils % Seg Neuts % (Manual) Lymphocytes % (Manual) Monocytes % (Manual) Seg Neutrophils # Seg Neutrophils # Man Lymphocytes # (Manual) D-Dimer POC ABG pH POC ABG pCO2 28.4 L POC ABG pO2 Sodium Potassium 6.1 H* Chloride 109.4 H Carbon Dioxide 18 L BUN 30 H Creatinine 2.1 H Glucose 126 H POC Glucose 204 H Calcium Phosphorus Iron TIBC Albumin TSH Urine WBC (Auto) Urine Creatinine Crossmatch 07/11/16 07/11/16 07/11/16 17:27 17:55 21:42 WBC RBC Hgb Hct MCH RDW Plt Count Lymph % (Auto) [place] % (Auto) Lymph # [place] # Seg Neutrophils % Seg Neuts % (Manual) Lymphocytes % (Manual) Monocytes % (Manual) Seg Neutrophils # Seg Neutrophils # Man Lymphocytes # (Manual) D-Dimer POC ABG pH POC ABG pCO2 POC ABG pO2 Sodium 146 H Potassium 6.5 H* Chloride 109.7 H Carbon Dioxide 20 L BUN 32 H Creatinine 2.4 H Glucose 167 H POC Glucose 433 H 142 H Calcium Phosphorus Iron TIBC Albumin TSH Urine WBC (Auto) Urine Creatinine Crossmatch 07/12/16 07/12/16 07/12/16 04:34 04:34 05:22 WBC 14.0 H RBC Hgb Hct MCH 27 L RDW 17.6 H Plt Count 113 L Lymph % (Auto) [place] % (Auto) Lymph # [place] # Seg Neutrophils % Seg Neuts % (Manual) 87.0 H Lymphocytes % (Manual) 11.0 L Monocytes % (Manual) Seg Neutrophils # Seg Neutrophils # Man 12.2 H Lymphocytes # (Manual) D-Dimer POC ABG pH 7.452 H POC ABG pCO2 29.6 L POC ABG pO2 Sodium Potassium 6.8 H* Chloride 110.2 H Carbon Dioxide 16 L BUN 43 H Creatinine 2.9 H Glucose 113 H POC Glucose Calcium Phosphorus Iron TIBC Albumin TSH Urine WBC (Auto) Urine Creatinine Crossmatch 07/12/16 07/12/16 07/12/16 13:24 17:28 21:11 WBC RBC Hgb Hct MCH RDW Plt Count Lymph % (Auto) [place] % (Auto) Lymph # [place] # Seg Neutrophils % Seg Neuts % (Manual) Lymphocytes % (Manual) Monocytes % (Manual) Seg Neutrophils # Seg Neutrophils # Man Lymphocytes # (Manual) D-Dimer POC ABG pH POC ABG pCO2 POC ABG pO2 Sodium 150 H Potassium Chloride 108.9 H Carbon Dioxide 21 L BUN 52 H Creatinine 3.7 H Glucose 143 H POC Glucose 148 H 134 H Calcium 8.0 L Phosphorus Iron TIBC Albumin TSH Urine WBC (Auto) Urine Creatinine Crossmatch 07/12/16 07/13/16 07/13/16 21:50 04:40 04:40 WBC 14.0 H RBC 3.50 L Hgb 9.3 L Hct 29.3 L MCH 27 L RDW 17.3 H Plt Count Lymph % (Auto) 4.9 L [place] % (Auto) Lymph # 0.7 L [place] # Seg Neutrophils % 90.0 H Seg Neuts % (Manual) 93.0 H Lymphocytes % (Manual) 5.0 L Monocytes % (Manual) Seg Neutrophils # 12.6 H Seg Neutrophils # Man 13.0 H Lymphocytes # (Manual) 0.7 L D-Dimer POC ABG pH POC ABG pCO2 POC ABG pO2 Sodium 151 H Potassium Chloride 109.3 H Carbon Dioxide BUN 59 H Creatinine 4.0 H Glucose 63 L POC Glucose 156 H Calcium 7.7 L Phosphorus Iron TIBC Albumin TSH Urine WBC (Auto) Urine Creatinine Crossmatch 07/13/16 07/13/16 07/13/16 06:10 06:40 08:03 WBC RBC Hgb Hct MCH RDW Plt Count Lymph % (Auto) [place] % (Auto) Lymph # [place] # Seg Neutrophils % Seg Neuts % (Manual) Lymphocytes % (Manual) Monocytes % (Manual) Seg Neutrophils # Seg Neutrophils # Man Lymphocytes # (Manual) D-Dimer POC ABG pH POC ABG pCO2 POC ABG pO2 Sodium Potassium Chloride Carbon Dioxide BUN Creatinine Glucose POC Glucose 68 L 176 H 141 H Calcium Phosphorus Iron TIBC Albumin TSH Urine WBC (Auto) Urine Creatinine Crossmatch 07/13/16 07/13/16 07/13/16 09:17 12:30 14:15 WBC RBC Hgb Hct MCH RDW Plt Count Lymph % (Auto) [place] % (Auto) Lymph # [place] # Seg Neutrophils % Seg Neuts % (Manual) Lymphocytes % (Manual) Monocytes % (Manual) Seg Neutrophils # Seg Neutrophils # Man Lymphocytes # (Manual) D-Dimer POC ABG pH 7.475 H 7.529 H POC ABG pCO2 33.4 L 26.8 L POC ABG pO2 110 H 70 L Sodium Potassium Chloride Carbon Dioxide BUN Creatinine Glucose POC Glucose 177 H Calcium Phosphorus Iron TIBC Albumin TSH Urine WBC (Auto) Urine Creatinine Crossmatch 07/13/16 07/13/16 07/13/16 15:28 17:57 22:10 WBC RBC Hgb Hct MCH RDW Plt Count Lymph % (Auto) [place] % (Auto) Lymph # [place] # Seg Neutrophils % Seg Neuts % (Manual) Lymphocytes % (Manual) Monocytes % (Manual) Seg Neutrophils # Seg Neutrophils # Man Lymphocytes # (Manual) D-Dimer POC ABG pH POC ABG pCO2 POC ABG pO2 Sodium Potassium Chloride Carbon Dioxide BUN Creatinine Glucose POC Glucose 122 H 166 H 197 H Calcium Phosphorus Iron TIBC Albumin TSH Urine WBC (Auto) Urine Creatinine Crossmatch 07/14/16 07/14/16 07/14/16 02:00 04:21 04:21 WBC RBC 3.01 L Hgb 8.1 L Hct 25.3 L MCH 27 L RDW 17.9 H Plt Count Lymph % (Auto) 6.1 L [place] % (Auto) Lymph # 0.5 L [place] # Seg Neutrophils % 89.9 H Seg Neuts % (Manual) Lymphocytes % (Manual) Monocytes % (Manual) Seg Neutrophils # Seg Neutrophils # Man Lymphocytes # (Manual) D-Dimer POC ABG pH POC ABG pCO2 POC ABG pO2 Sodium 150 H Potassium Chloride 107.3 H Carbon Dioxide 21 L BUN 82 H Creatinine 4.8 H Glucose 176 H POC Glucose 166 H Calcium 6.8 L Phosphorus Iron TIBC Albumin TSH Urine WBC (Auto) Urine Creatinine Crossmatch 07/14/16 07/14/16 07/14/16 05:32 09:42 22:32 WBC RBC Hgb Hct MCH RDW Plt Count Lymph % (Auto) [place] % (Auto) Lymph # [place] # Seg Neutrophils % Seg Neuts % (Manual) Lymphocytes % (Manual) Monocytes % (Manual) Seg Neutrophils # Seg Neutrophils # Man Lymphocytes # (Manual) D-Dimer POC ABG pH POC ABG pCO2 POC ABG pO2 Sodium Potassium Chloride Carbon Dioxide BUN Creatinine Glucose POC Glucose 202 H 216 H 191 H Calcium Phosphorus Iron TIBC Albumin TSH Urine WBC (Auto) Urine Creatinine Crossmatch 07/15/16 07/15/16 07/15/16 04:46 04:56 04:56 WBC RBC 3.04 L Hgb 8.2 L Hct 25.8 L MCH 27 L RDW 17.3 H Plt Count Lymph % (Auto) 4.2 L [place] % (Auto) 11.8 H Lymph # 0.4 L [place] # 1.1 H Seg Neutrophils % 83.9 H Seg Neuts % (Manual) Lymphocytes % (Manual) Monocytes % (Manual) Seg Neutrophils # Seg Neutrophils # Man Lymphocytes # (Manual) D-Dimer POC ABG pH POC ABG pCO2 POC ABG pO2 Sodium 147 H Potassium 3.4 L Chloride Carbon Dioxide 20 L BUN 109 H Creatinine 5.2 H Glucose 242 H POC Glucose 275 H Calcium 6.3 L Phosphorus Iron TIBC Albumin TSH Urine WBC (Auto) Urine Creatinine Crossmatch 07/15/16 07/15/16 07/15/16 11:32 16:52 20:41 WBC RBC Hgb Hct MCH RDW Plt Count Lymph % (Auto) [place] % (Auto) Lymph # [place] # Seg Neutrophils % Seg Neuts % (Manual) Lymphocytes % (Manual) Monocytes % (Manual) Seg Neutrophils # Seg Neutrophils # Man Lymphocytes # (Manual) D-Dimer POC ABG pH POC ABG pCO2 POC ABG pO2 Sodium Potassium Chloride Carbon Dioxide BUN Creatinine Glucose POC Glucose 250 H 195 H 219 H Calcium Phosphorus Iron TIBC Albumin TSH Urine WBC (Auto) Urine Creatinine Crossmatch 07/16/16 07/16/16 07/16/16 00:37 05:47 09:54 WBC RBC 3.20 L Hgb 8.6 L Hct 27.3 L MCH 27 L RDW 17.1 H Plt Count Lymph % (Auto) 4.2 L [place] % (Auto) Lymph # 0.3 L [place] # Seg Neutrophils % 89.6 H Seg Neuts % (Manual) Lymphocytes % (Manual) Monocytes % (Manual) Seg Neutrophils # Seg Neutrophils # Man Lymphocytes # (Manual) D-Dimer POC ABG pH POC ABG pCO2 POC ABG pO2 Sodium Potassium Chloride Carbon Dioxide BUN Creatinine Glucose POC Glucose 257 H 223 H Calcium Phosphorus Iron TIBC Albumin TSH Urine WBC (Auto) Urine Creatinine Crossmatch 07/16/16 07/16/16 07/16/16 09:54 11:54 17:48 WBC RBC Hgb Hct MCH RDW Plt Count Lymph % (Auto) [place] % (Auto) Lymph # [place] # Seg Neutrophils % Seg Neuts % (Manual) Lymphocytes % (Manual) Monocytes % (Manual) Seg Neutrophils # Seg Neutrophils # Man Lymphocytes # (Manual) D-Dimer POC ABG pH POC ABG pCO2 POC ABG pO2 Sodium 148 H Potassium Chloride Carbon Dioxide 21 L BUN 146 H Creatinine 6.0 H Glucose 249 H POC Glucose 294 H 195 H Calcium 6.4 L Phosphorus Iron TIBC Albumin TSH Urine WBC (Auto) Urine Creatinine Crossmatch 07/16/16 07/16/16 07/17/16 21:54 23:53 05:53 WBC RBC Hgb Hct MCH RDW Plt Count Lymph % (Auto) [place] % (Auto) Lymph # [place] # Seg Neutrophils % Seg Neuts % (Manual) Lymphocytes % (Manual) Monocytes % (Manual) Seg Neutrophils # Seg Neutrophils # Man Lymphocytes # (Manual) D-Dimer POC ABG pH POC ABG pCO2 POC ABG pO2 Sodium Potassium Chloride Carbon Dioxide BUN Creatinine Glucose POC Glucose 161 H 171 H 208 H Calcium Phosphorus Iron TIBC Albumin TSH Urine WBC (Auto) Urine Creatinine Crossmatch 07/17/16 07/17/16 07/17/16 06:52 06:52 11:28 WBC RBC 3.17 L Hgb 8.6 L Hct 26.4 L MCH 27 L RDW 17.2 H Plt Count Lymph % (Auto) [place] % (Auto) Lymph # [place] # Seg Neutrophils % Seg Neuts % (Manual) 90.0 H Lymphocytes % (Manual) 8.0 L Monocytes % (Manual) Seg Neutrophils # Seg Neutrophils # Man Lymphocytes # (Manual) 0.6 L D-Dimer POC ABG pH POC ABG pCO2 POC ABG pO2 Sodium Potassium Chloride Carbon Dioxide BUN 87 H Creatinine 4.2 H Glucose 231 H POC Glucose 255 H Calcium 6.2 L Phosphorus 5.2 H Iron TIBC Albumin TSH Urine WBC (Auto) Urine Creatinine Crossmatch 07/17/16 07/17/16 07/18/16 16:22 23:41 05:06 WBC RBC 3.25 L Hgb 8.8 L Hct 27.2 L MCH 27 L RDW 17.0 H Plt Count Lymph % (Auto) [place] % (Auto) Lymph # [place] # Seg Neutrophils % Seg Neuts % (Manual) 80.0 H Lymphocytes % (Manual) 10.0 L Monocytes % (Manual) Seg Neutrophils # Seg Neutrophils # Man Lymphocytes # (Manual) 0.9 L D-Dimer POC ABG pH POC ABG pCO2 POC ABG pO2 Sodium Potassium Chloride Carbon Dioxide BUN Creatinine Glucose POC Glucose 263 H 195 H Calcium Phosphorus Iron TIBC Albumin TSH Urine WBC (Auto) Urine Creatinine Crossmatch 07/18/16 07/18/16 07/18/16 05:06 06:52 11:52 WBC RBC Hgb Hct MCH RDW Plt Count Lymph % (Auto) [place] % (Auto) Lymph # [place] # Seg Neutrophils % Seg Neuts % (Manual) Lymphocytes % (Manual) Monocytes % (Manual) Seg Neutrophils # Seg Neutrophils # Man Lymphocytes # (Manual) D-Dimer POC ABG pH POC ABG pCO2 POC ABG pO2 Sodium Potassium Chloride 97.7 L Carbon Dioxide BUN 51 H Creatinine 2.8 H Glucose 252 H POC Glucose 289 H 242 H Calcium 6.4 L Phosphorus Iron TIBC Albumin TSH Urine WBC (Auto) Urine Creatinine Crossmatch 07/18/16 07/18/16 07/19/16 16:36 21:34 05:50 WBC RBC Hgb Hct MCH RDW Plt Count Lymph % (Auto) [place] % (Auto) Lymph # [place] # Seg Neutrophils % Seg Neuts % (Manual) Lymphocytes % (Manual) Monocytes % (Manual) Seg Neutrophils # Seg Neutrophils # Man Lymphocytes # (Manual) D-Dimer POC ABG pH POC ABG pCO2 POC ABG pO2 Sodium Potassium Chloride Carbon Dioxide BUN Creatinine Glucose POC Glucose 221 H 210 H 273 H Calcium Phosphorus Iron TIBC Albumin TSH Urine WBC (Auto) Urine Creatinine Crossmatch 07/19/16 07/19/16 07/19/16 07:09 17:06 21:56 WBC RBC Hgb Hct MCH RDW Plt Count Lymph % (Auto) [place] % (Auto) Lymph # [place] # Seg Neutrophils % Seg Neuts % (Manual) Lymphocytes % (Manual) Monocytes % (Manual) Seg Neutrophils # Seg Neutrophils # Man Lymphocytes # (Manual) D-Dimer POC ABG pH POC ABG pCO2 POC ABG pO2 Sodium Potassium Chloride 96.2 L Carbon Dioxide BUN 81 H Creatinine 4.9 H D Glucose 260 H POC Glucose 143 H 148 H Calcium 6.0 L Phosphorus Iron TIBC Albumin TSH Urine WBC (Auto) Urine Creatinine Crossmatch 07/20/16 07/20/16 07/20/16 05:21 06:29 11:01 WBC RBC Hgb Hct MCH RDW Plt Count Lymph % (Auto) [place] % (Auto) Lymph # [place] # Seg Neutrophils % Seg Neuts % (Manual) Lymphocytes % (Manual) Monocytes % (Manual) Seg Neutrophils # Seg Neutrophils # Man Lymphocytes # (Manual) D-Dimer POC ABG pH POC ABG pCO2 POC ABG pO2 Sodium 136 L Potassium 3.4 L Chloride 94.4 L Carbon Dioxide BUN 43 H Creatinine 3.5 H Glucose 263 H POC Glucose 299 H 281 H Calcium 6.5 L Phosphorus Iron TIBC Albumin TSH Urine WBC (Auto) Urine Creatinine Crossmatch 07/20/16 07/20/16 07/21/16 17:07 22:54 06:24 WBC RBC Hgb Hct MCH RDW Plt Count Lymph % (Auto) [place] % (Auto) Lymph # [place] # Seg Neutrophils % Seg Neuts % (Manual) Lymphocytes % (Manual) Monocytes % (Manual) Seg Neutrophils # Seg Neutrophils # Man Lymphocytes # (Manual) D-Dimer POC ABG pH POC ABG pCO2 POC ABG pO2 Sodium Potassium Chloride Carbon Dioxide BUN Creatinine Glucose POC Glucose 253 H 209 H 346 H Calcium Phosphorus Iron TIBC Albumin TSH Urine WBC (Auto) Urine Creatinine Crossmatch 07/21/16 07/21/16 07/21/16 07:25 15:46 21:23 WBC RBC Hgb Hct MCH RDW Plt Count Lymph % (Auto) [place] % (Auto) Lymph # [place] # Seg Neutrophils % Seg Neuts % (Manual) Lymphocytes % (Manual) Monocytes % (Manual) Seg Neutrophils # Seg Neutrophils # Man Lymphocytes # (Manual) D-Dimer POC ABG pH POC ABG pCO2 POC ABG pO2 Sodium 133 L Potassium Chloride 90.7 L Carbon Dioxide BUN 71 H Creatinine 4.8 H Glucose 289 H POC Glucose 112 H 218 H Calcium 6.2 L Phosphorus Iron TIBC Albumin TSH Urine WBC (Auto) Urine Creatinine Crossmatch 07/22/16 07/22/16 07/22/16 06:28 11:49 16:37 WBC RBC Hgb Hct MCH RDW Plt Count Lymph % (Auto) [place] % (Auto) Lymph # [place] # Seg Neutrophils % Seg Neuts % (Manual) Lymphocytes % (Manual) Monocytes % (Manual) Seg Neutrophils # Seg Neutrophils # Man Lymphocytes # (Manual) D-Dimer POC ABG pH POC ABG pCO2 POC ABG pO2 Sodium Potassium Chloride Carbon Dioxide BUN Creatinine Glucose POC Glucose 316 H 211 H 185 H Calcium Phosphorus Iron TIBC Albumin TSH Urine WBC (Auto) Urine Creatinine Crossmatch 07/22/16 07/23/16 07/23/16 20:24 05:19 12:10 WBC RBC Hgb Hct MCH RDW Plt Count Lymph % (Auto) [place] % (Auto) Lymph # [place] # Seg Neutrophils % Seg Neuts % (Manual) Lymphocytes % (Manual) Monocytes % (Manual) Seg Neutrophils # Seg Neutrophils # Man Lymphocytes # (Manual) D-Dimer POC ABG pH POC ABG pCO2 POC ABG pO2 Sodium Potassium Chloride Carbon Dioxide BUN Creatinine Glucose POC Glucose 213 H 319 H 261 H Calcium Phosphorus Iron TIBC Albumin TSH Urine WBC (Auto) Urine Creatinine Crossmatch 07/23/16 07/23/16 07/24/16 15:49 20:58 05:29 WBC RBC Hgb Hct MCH RDW Plt Count Lymph % (Auto) Cecil % (Auto) Lymph # Cecil # Seg Neutrophils % Seg Neuts % (Manual) Lymphocytes % (Manual) Monocytes % (Manual) Seg Neutrophils # Seg Neutrophils # Man Lymphocytes # (Manual) D-Dimer POC ABG pH POC ABG pCO2 POC ABG pO2 Sodium Potassium Chloride Carbon Dioxide BUN Creatinine Glucose POC Glucose 271 H 191 H 279 H Calcium Phosphorus Iron TIBC Albumin TSH Urine WBC (Auto) Urine Creatinine Crossmatch 07/24/16 07/24/16 07/24/16 05:53 16:20 21:31 WBC RBC Hgb Hct MCH RDW Plt Count Lymph % (Auto) Cecil % (Auto) Lymph # Cecil # Seg Neutrophils % Seg Neuts % (Manual) Lymphocytes % (Manual) Monocytes % (Manual) Seg Neutrophils # Seg Neutrophils # Man Lymphocytes # (Manual) D-Dimer POC ABG pH POC ABG pCO2 POC ABG pO2 Sodium Potassium Chloride Carbon Dioxide BUN 89 H Creatinine 5.3 H Glucose 273 H POC Glucose 161 H 136 H Calcium 6.2 L Phosphorus Iron TIBC Albumin TSH Urine WBC (Auto) Urine Creatinine Crossmatch 07/25/16 07/25/16 07/25/16 06:25 11:56 16:10 WBC RBC Hgb Hct MCH RDW Plt Count Lymph % (Auto) Cecil % (Auto) Lymph # Cecil # Seg Neutrophils % Seg Neuts % (Manual) Lymphocytes % (Manual) Monocytes % (Manual) Seg Neutrophils # Seg Neutrophils # Man Lymphocytes # (Manual) D-Dimer POC ABG pH POC ABG pCO2 POC ABG pO2 Sodium Potassium Chloride Carbon Dioxide BUN Creatinine Glucose POC Glucose 311 H 164 H 249 H Calcium Phosphorus Iron TIBC Albumin TSH Urine WBC (Auto) Urine Creatinine Crossmatch 07/25/16 07/26/16 07/26/16 21:13 06:19 11:31 WBC RBC Hgb Hct MCH RDW Plt Count Lymph % (Auto) Cecil % (Auto) Lymph # Cecil # Seg Neutrophils % Seg Neuts % (Manual) Lymphocytes % (Manual) Monocytes % (Manual) Seg Neutrophils # Seg Neutrophils # Man Lymphocytes # (Manual) D-Dimer POC ABG pH POC ABG pCO2 POC ABG pO2 Sodium Potassium Chloride Carbon Dioxide BUN Creatinine Glucose POC Glucose 194 H 280 H 191 H Calcium Phosphorus Iron TIBC Albumin TSH Urine WBC (Auto) Urine Creatinine Crossmatch 07/26/16 07/26/16 07/26/16 12:50 12:50 13:02 WBC RBC 2.35 L Hgb 6.5 L Hct 20.0 L MCH RDW 18.4 H Plt Count 135 L Lymph % (Auto) 7.7 L Cecil % (Auto) Lymph # 0.6 L Cecil # Seg Neutrophils % 86.8 H Seg Neuts % (Manual) Lymphocytes % (Manual) Monocytes % (Manual) Seg Neutrophils # Seg Neutrophils # Man Lymphocytes # (Manual) D-Dimer POC ABG pH 7.523 H POC ABG pCO2 31.3 L POC ABG pO2 Sodium Potassium Chloride Carbon Dioxide BUN 67 H Creatinine 4.9 H Glucose 139 H POC Glucose Calcium 6.1 L Phosphorus Iron TIBC Albumin TSH Urine WBC (Auto) Urine Creatinine Crossmatch 07/26/16 07/26/16 07/26/16 15:10 16:11 23:25 WBC RBC Hgb Hct MCH RDW Plt Count Lymph % (Auto) Cecil % (Auto) Lymph # Cecil # Seg Neutrophils % Seg Neuts % (Manual) Lymphocytes % (Manual) Monocytes % (Manual) Seg Neutrophils # Seg Neutrophils # Man Lymphocytes # (Manual) D-Dimer POC ABG pH POC ABG pCO2 POC ABG pO2 Sodium Potassium Chloride Carbon Dioxide BUN Creatinine Glucose POC Glucose 204 H 115 H Calcium Phosphorus Iron TIBC Albumin TSH Urine WBC (Auto) Urine Creatinine Crossmatch See Detail 07/27/16 07/27/16 07/27/16 06:39 09:28 09:28 WBC RBC 3.30 L Hgb 9.4 L Hct 28.5 L D MCH RDW 16.5 H Plt Count 115 L Lymph % (Auto) Cecil % (Auto) Lymph # Cecil # Seg Neutrophils % 78.0 H Seg Neuts % (Manual) Lymphocytes % (Manual) Monocytes % (Manual) Seg Neutrophils # 8.2 H Seg Neutrophils # Man Lymphocytes # (Manual) D-Dimer POC ABG pH POC ABG pCO2 POC ABG pO2 Sodium Potassium 2.6 L* D Chloride 97.7 L Carbon Dioxide BUN 36 H Creatinine 2.9 H Glucose 157 H POC Glucose 194 H Calcium 6.8 L Phosphorus Iron TIBC Albumin TSH Urine WBC (Auto) Urine Creatinine Crossmatch 07/27/16 07/27/16 07/28/16 11:06 21:17 05:56 WBC RBC Hgb Hct MCH RDW Plt Count Lymph % (Auto) Cecil % (Auto) Lymph # Cecil # Seg Neutrophils % Seg Neuts % (Manual) Lymphocytes % (Manual) Monocytes % (Manual) Seg Neutrophils # Seg Neutrophils # Man Lymphocytes # (Manual) D-Dimer POC ABG pH POC ABG pCO2 POC ABG pO2 Sodium Potassium 3.2 L D Chloride Carbon Dioxide BUN 46 H Creatinine 3.5 H Glucose 205 H POC Glucose 145 H 121 H Calcium 6.8 L Phosphorus Iron TIBC Albumin TSH Urine WBC (Auto) Urine Creatinine Crossmatch 07/28/16 07/28/16 07/28/16 05:56 11:12 17:21 WBC RBC Hgb 9.1 L Hct 28.0 L MCH RDW Plt Count Lymph % (Auto) Cecil % (Auto) Lymph # Cecil # Seg Neutrophils % Seg Neuts % (Manual) Lymphocytes % (Manual) Monocytes % (Manual) Seg Neutrophils # Seg Neutrophils # Man Lymphocytes # (Manual) D-Dimer POC ABG pH POC ABG pCO2 POC ABG pO2 Sodium Potassium Chloride Carbon Dioxide BUN Creatinine Glucose POC Glucose 125 H 157 H Calcium Phosphorus Iron TIBC Albumin TSH Urine WBC (Auto) Urine Creatinine Crossmatch 07/28/16 07/29/16 07/29/16 21:46 12:10 15:52 WBC RBC Hgb Hct MCH RDW Plt Count Lymph % (Auto) Cecil % (Auto) Lymph # Cecil # Seg Neutrophils % Seg Neuts % (Manual) Lymphocytes % (Manual) Monocytes % (Manual) Seg Neutrophils # Seg Neutrophils # Man Lymphocytes # (Manual) D-Dimer POC ABG pH POC ABG pCO2 POC ABG pO2 Sodium Potassium Chloride Carbon Dioxide BUN Creatinine Glucose POC Glucose 190 H 169 H 145 H Calcium Phosphorus Iron TIBC Albumin TSH Urine WBC (Auto) Urine Creatinine Crossmatch 07/29/16 07/30/16 07/30/16 23:56 00:15 05:38 WBC RBC Hgb 8.5 L Hct 26.4 L MCH RDW Plt Count Lymph % (Auto) Cecil % (Auto) Lymph # Cecil # Seg Neutrophils % Seg Neuts % (Manual) Lymphocytes % (Manual) Monocytes % (Manual) Seg Neutrophils # Seg Neutrophils # Man Lymphocytes # (Manual) D-Dimer POC ABG pH POC ABG pCO2 POC ABG pO2 Sodium Potassium Chloride Carbon Dioxide BUN Creatinine Glucose POC Glucose 166 H Calcium Phosphorus Iron 23 L TIBC 142 L Albumin TSH Urine WBC (Auto) Urine Creatinine Crossmatch 07/30/16 07/30/16 07/30/16 05:38 06:19 11:25 WBC RBC Hgb Hct MCH RDW Plt Count Lymph % (Auto) Cecil % (Auto) Lymph # Cecil # Seg Neutrophils % Seg Neuts % (Manual) Lymphocytes % (Manual) Monocytes % (Manual) Seg Neutrophils # Seg Neutrophils # Man Lymphocytes # (Manual) D-Dimer POC ABG pH POC ABG pCO2 POC ABG pO2 Sodium Potassium Chloride Carbon Dioxide BUN 40 H Creatinine 3.5 H Glucose 151 H POC Glucose 167 H 117 H Calcium 7.1 L Phosphorus Iron TIBC Albumin TSH Urine WBC (Auto) Urine Creatinine Crossmatch 07/30/16 07/30/16 07/31/16 16:29 22:12 06:34 WBC RBC Hgb Hct MCH RDW Plt Count Lymph % (Auto) Cecil % (Auto) Lymph # Cecil # Seg Neutrophils % Seg Neuts % (Manual) Lymphocytes % (Manual) Monocytes % (Manual) Seg Neutrophils # Seg Neutrophils # Man Lymphocytes # (Manual) D-Dimer POC ABG pH POC ABG pCO2 POC ABG pO2 Sodium Potassium Chloride Carbon Dioxide BUN Creatinine Glucose POC Glucose 146 H 150 H 148 H Calcium Phosphorus Iron TIBC Albumin TSH Urine WBC (Auto) Urine Creatinine Crossmatch 07/31/16 07/31/16 07/31/16 08:16 08:16 11:26 WBC RBC Hgb 8.1 L Hct 24.9 L MCH RDW Plt Count Lymph % (Auto) Cecil % (Auto) Lymph # Cecil # Seg Neutrophils % Seg Neuts % (Manual) Lymphocytes % (Manual) Monocytes % (Manual) Seg Neutrophils # Seg Neutrophils # Man Lymphocytes # (Manual) D-Dimer POC ABG pH POC ABG pCO2 POC ABG pO2 Sodium Potassium Chloride Carbon Dioxide BUN 52 H Creatinine 4.0 H Glucose 152 H POC Glucose 137 H Calcium 6.9 L Phosphorus Iron TIBC Albumin TSH Urine WBC (Auto) Urine Creatinine Crossmatch 08/01/16 08/01/16 08/01/16 00:14 02:49 05:22 WBC RBC 3.09 L Hgb 8.6 L Hct 26.9 L MCH RDW 16.5 H Plt Count 107 L Lymph % (Auto) Cecil % (Auto) Lymph # Cecil # Seg Neutrophils % Seg Neuts % (Manual) Lymphocytes % (Manual) Monocytes % (Manual) Seg Neutrophils # Seg Neutrophils # Man Lymphocytes # (Manual) D-Dimer POC ABG pH POC ABG pCO2 POC ABG pO2 Sodium Potassium Chloride Carbon Dioxide BUN Creatinine Glucose POC Glucose 172 H 140 H Calcium Phosphorus Iron TIBC Albumin TSH Urine WBC (Auto) Urine Creatinine Crossmatch 08/01/16 08/02/16 08/02/16 11:18 05:50 21:49 WBC RBC Hgb Hct MCH RDW Plt Count Lymph % (Auto) Cecil % (Auto) Lymph # Cecil # Seg Neutrophils % Seg Neuts % (Manual) Lymphocytes % (Manual) Monocytes % (Manual) Seg Neutrophils # Seg Neutrophils # Man Lymphocytes # (Manual) D-Dimer POC ABG pH POC ABG pCO2 POC ABG pO2 Sodium Potassium Chloride Carbon Dioxide BUN Creatinine Glucose POC Glucose 116 H 111 H 138 H Calcium Phosphorus Iron TIBC Albumin TSH Urine WBC (Auto) Urine Creatinine Crossmatch 08/03/16 08/03/16 08/03/16 05:44 10:22 12:17 WBC RBC Hgb Hct MCH RDW Plt Count Lymph % (Auto) Cecil % (Auto) Lymph # Cecil # Seg Neutrophils % Seg Neuts % (Manual) Lymphocytes % (Manual) Monocytes % (Manual) Seg Neutrophils # Seg Neutrophils # Man Lymphocytes # (Manual) D-Dimer POC ABG pH 7.472 H POC ABG pCO2 POC ABG pO2 Sodium Potassium Chloride Carbon Dioxide BUN Creatinine Glucose POC Glucose 144 H 146 H Calcium Phosphorus Iron TIBC Albumin TSH Urine WBC (Auto) Urine Creatinine Crossmatch 08/03/16 08/03/16 08/03/16 16:05 22:49 23:00 WBC RBC Hgb Hct MCH RDW Plt Count Lymph % (Auto) Cecil % (Auto) Lymph # Cecil # Seg Neutrophils % Seg Neuts % (Manual) Lymphocytes % (Manual) Monocytes % (Manual) Seg Neutrophils # Seg Neutrophils # Man Lymphocytes # (Manual) D-Dimer POC ABG pH POC ABG pCO2 POC ABG pO2 Sodium Potassium Chloride Carbon Dioxide BUN Creatinine Glucose POC Glucose 131 H 165 H 223 H Calcium Phosphorus Iron TIBC Albumin TSH Urine WBC (Auto) Urine Creatinine Crossmatch 08/04/16 08/04/16 07:24 07:24 WBC 3.4 L RBC 2.67 L Hgb 7.7 L Hct 23.6 L MCH RDW 16.7 H Plt Count Lymph % (Auto) Cecil % (Auto) Lymph # Cecil # Seg Neutrophils % Seg Neuts % (Manual) Lymphocytes % (Manual) 8.0 L Monocytes % (Manual) 19.0 H Seg Neutrophils # Seg Neutrophils # Man Lymphocytes # (Manual) 0.3 L D-Dimer POC ABG pH POC ABG pCO2 POC ABG pO2 Sodium Potassium Chloride Carbon Dioxide BUN 31 H Creatinine 4.1 H Glucose 157 H POC Glucose Calcium 7.1 L Phosphorus 2.1 L Iron TIBC Albumin TSH Urine WBC (Auto) Urine Creatinine Crossmatch
--- NOTE | 2016-08-04 11:48 | Discharge Summary ---
Providers - Providers Date of Admission: 07/03/16 14:03 Date of discharge: 08/04/16 Attending physician: CUCO HUFFMAN 07/04/16 08:26 Consult to Mental Health [CONS] Routine Reason For Exam: AMS Place consult to:: Riya Penny Notified:: CHATO Phone number called:: [phone] Was contact made?: Yes If yes, spoke with:: SENAIT Simon called:: 09:58 Comment:: BARTOLO NOTIFIED 07/04/16 12:31 Occupational Therapy Evaluate and Treat [CONS] Routine Comment: Reason For Exam: DECONDITIONING AND PLACEMENT Physical Therapy Evaluation and Treat [CONS] Routine Comment: Reason For Exam: DECONDITIONING AND PLACEMENT 07/05/16 07:56 Consult to Physician [CONS] Routine Consulting Provider: GUADALUPE SHANNON Reason For Exam: a/ckd Place consult to:: Zacarias Colon Notified:: ANSWERING SERVICE Phone number called:: [phone] Was contact made?: Yes If yes, spoke with:: LAURA Simon called:: 08:57 Comment:: COMPLETED L[facility]E 07/11/16 07:57 Consult to Dietitian/Nutrition [CONS] Routine Physician Instructions: Reason For Exam: Reason for Consult: Evaluate nutritional intake 07/11/16 09:46 Consult to Physician [CONS] Routine Consulting Provider: RICH GERONIMO Reason For Exam: resp failure Place consult to:: DR. GERONIMO Notified:: YES 07/14/16 11:12 Speech Therapy Evaluation and Treat [CONS] Routine Reason For Exam: swallow eval 07/17/16 13:05 Consult to Physician [CONS] Routine Consulting Provider: [facility] Reason For Exam: PEG placement Place consult to:: GI Notified:: yes Phone number called:: [phone] Was contact made?: Yes If yes, spoke with:: Mirna Simon called:: 13:10 07/19/16 14:27 Physical Therapy Evaluation and Treat [CONS] Urgent Comment: Reason For Exam: SNF requested updated PT notes 07/22/16 14:16 Speech Therapy Evaluation and Treat [CONS] Routine Reason For Exam: dysphagia 07/27/16 13:49 Consult to Physician [CONS] Routine Consulting Provider: JACQUES,FRANCESCO A Reason For Exam: PEG placement and anemia Place consult to:: assistant professor of education GI Notified:: office Phone number called:: [phone] Was contact made?: Yes If yes, spoke with:: alexander Time called:: 12:22 Primary care physician: RECYCLING ASSISTANT Hospitalization Condition: Fair Disposition: DC/TX SNF W [facility] CERT - Discharge Diagnoses (1) Acute respiratory failure Status: Resolved (2) Acute UTI Status: Acute (3) Dementia Status: Acute Qualifiers: Dementia behavioral disturbance: with behavioral disturbance (4) Diabetes Status: Acute Qualifiers: Diabetes mellitus type: type 2 Diabetes mellitus complication status: with kidney complications Diabetes mellitus complication detail: with chronic kidney disease (5) Hypothyroidism Status: Acute Qualifiers: Hypothyroidism type: unspecified Qualified Code(s): E03.9 - Hypothyroidism , unspecified (6) Acute renal failure superimposed on stage 3 chronic kidney disease Status: Acute Core Measure Documentation - Palliative Care Palliative Care/ Comfort Measures: Not Applicable - Core Measures Any of the following diagnoses?: none Exam - Physical Exam Narrative exam: Gen: Not in acute distress HEENT: Normocephalic, atraumatic, NG tube in Neck :supple, no JVD Lungs clear to auscultation bilaterally no crackles or wheeze Heart :S1 and S2 regular, no murmurs no gallop Abdomen:soft, nontender, nondistended, PEG tube site dry,, normal bowel sounds Ext: edema left upper ext Neuro: lethargic - Constitutional Vitals: Temp Pulse Resp BP Pulse Ox 98.5 F 78 18 108/50 97 08/04/16 10:48 08/04/16 10:48 08/04/16 10:48 08/04/16 10:48 08/04/16 08:00 Plan Activity: advance as tolerated Diet: other (Continue Tube feeding via PEG) Follow up with: [facility] [Outside] - 3-5 Days POLY DINERO MD [Staff Physician] - [facility] (Dr. Dinero is a cotton program technician. Please follow up with him for further evaluation of your kidney function) PRIMARY CAREMD [Primary Care Provider] - [facility] Prescriptions: Famotidine [Pepcid] 20 mg PO DAILY #30 tablet Levothyroxine [Synthroid] 150 mcg PO DAILY@0600 #30 tablet
[2016-08-04] MEDS: PROCRIT IV SCH (13:36)
[2016-08-04] MEDS: HEPARIN IV PRN (13:47)
[2016-08-04 17:52] VITALS: BP 151/66
== END 2016-08-04 19:40 | DRG 91 ==
LOC: ED 10:12 → 3A 07-03 14:03 → CC1 07-11 06:25 → 3A 07-14 12:53 → CC1 07-16 16:11 → 3A 07-16 22:02
PROVIDERS: ADMIT Internal Medicine; ATTEND Internal Medicine
PROC: 0BH17EZ Insertion of Endotracheal Airway into Trachea, Via Natural or Artificial Opening (ICD-10-PCS; principal; 2016-07-11)
PROC: 5A1945Z Respiratory Ventilation, 24-96 Consecutive Hours (ICD-10-PCS; principal; 2016-07-11)
PROC: 5A09457 Assistance with Respiratory Ventilation, 24-96 Consecutive Hours, Continuous Positive Airway Pressure (ICD-10-PCS; 2016-07-13)
PROC: 05HN33Z Insertion of Infusion Device into Left Internal Jugular Vein, Percutaneous Approach (ICD-10-PCS; 2016-07-16)
PROC: B544ZZA Ultrasonography of Left Jugular Veins, Guidance (ICD-10-PCS; 2016-07-16)
PROC: 5A1D60Z (ICD-10-PCS; 2016-07-16)
PROC: 05HM33Z Insertion of Infusion Device into Right Internal Jugular Vein, Percutaneous Approach (ICD-10-PCS; 2016-07-26)
PROC: B543ZZA Ultrasonography of Right Jugular Veins, Guidance (ICD-10-PCS; 2016-07-26)
PROC: B5131ZA Fluoroscopy of Right Jugular Veins using Low Osmolar Contrast, Guidance (ICD-10-PCS; 2016-07-26)
PROC: 30233N1 Transfusion of Nonautologous Red Blood Cells into Peripheral Vein, Percutaneous Approach (ICD-10-PCS; 2016-07-26)
PROC: 0DH63UZ Insertion of Feeding Device into Stomach, Percutaneous Approach (ICD-10-PCS; 2016-08-01)
DX: G92 Toxic encephalopathy (principal); N17.0 Acute kidney failure with tubular necrosis; J96.01 Acute respiratory failure with hypoxia; E87.0 Hyperosmolality and hypernatremia; N39.0 Urinary tract infection, site not specified; F03.91 Unspecified dementia, unspecified severity, with behavioral disturbance; E87.2 Acidosis; I82.619 Acute embolism and thrombosis of superficial veins of unspecified upper extremity; N18.4 Chronic kidney disease, stage 4 (severe); T78.3XXA Angioneurotic edema, initial encounter; E16.2 Hypoglycemia, unspecified; E87.5 Hyperkalemia; F31.9 Bipolar disorder, unspecified; I12.9 Hypertensive chronic kidney disease with stage 1 through stage 4 chronic kidney disease, or unspecified chronic kidney disease; M19.049 Primary osteoarthritis, unspecified hand; Z96.659 Presence of unspecified artificial knee joint; M54.30 Sciatica, unspecified side; D63.1 Anemia in chronic kidney disease; E03.9 Hypothyroidism, unspecified; K21.9 Gastro-esophageal reflux disease without esophagitis; G89.29 Other chronic pain; M54.9 Dorsalgia, unspecified; M16.10 Unilateral primary osteoarthritis, unspecified hip; M79.89 Other specified soft tissue disorders; E11.22 Type 2 diabetes mellitus with diabetic chronic kidney disease; Z90.12 Acquired absence of left breast and nipple; Z90.710 Acquired absence of both cervix and uterus; Z79.4 Long term (current) use of insulin; Z79.899 Other long term (current) drug therapy; Z78.1 Physical restraint status; D50.9 Iron deficiency anemia, unspecified; E87.6 Hypokalemia; R13.12 Dysphagia, oropharyngeal phase; B96.1 Klebsiella pneumoniae [K. pneumoniae] as the cause of diseases classified elsewhere
CPT/HCPCS: 36415; 36558; 36600; 70450; 71010; 71020; 74000; 76770; 77001; 80048; 80053; 80074; 80301; 80320; 81001; 82043; 82140; 82270; 82550; 82553; 82803; 82962; 83036; 83550; 83735; 84100; 84300; 84443; 84484; 85007; 85014; 85018; 85025; 85027; 85379; 85610; 85730; 86850; 86900; 86901; 86920; 87040; 87070; 87205; 89050; 90686; 90732; 94002; 94003; 94660; 94760; 96374; 96376; C1750; G0479; G0480; G8978-GP; G8979-GP; G8980-GP; G8996-GN; G8997-GN; G8998-GN; J0360; J0690; J0696; J0885; J1200; J1644; J1815; J1940; J2250; J2920; J2930; J3010; J3480; J7030; J7042; P9016